=== PATIENT | female | born 1950 | race Caucasian/White ===

== ENCOUNTER → 2020-08-08 11:46 | Outpatient (BNVA) | payer MEDICARE, SELFPAY | PROVIDERS: PCP Internal Medicine; Referring Provider Internal Medicine; Visit Provider Nurse Practitioner | DX: K58.2 Mixed irritable bowel syndrome (principal); K21.9 Gastro-esophageal reflux disease without esophagitis; Z86.010 Personal history of colon polyps | CPT/HCPCS: 99203 ==

== ENCOUNTER 2020-08-14 07:58 | Outpatient (REF) | payer MEDICARE, SELFPAY ==
[2020-08-14 08:59] LABS: MANUAL DIFF FLAG NO
[2020-08-14 09:05] LABS: Basophils Percent Auto 0.6 % (0-2); Eosinophils Absolute Auto 0.1 X10*3/uL (0.0-0.4); Eosinophils Percent Auto 2.8 % (0-4); Hematocrit 38.6 % (37-47); Hemoglobin 12.9 g/dl (12.0-16.0); Imm Gran Abs Auto 0.02 X10*3/uL (0.00-0.03); Imm Gran Pct Auto 0.4 % (0.0-0.4); Lymphocytes Absolute Auto 1.1 X10*3/uL (1.2-4.9); Lymphocytes Percent Auto 23.2 % (20-40); Mean Corpuscular HGB Conc 33.4 g/dl (31.0-35.0); Mean Corpuscular Hemoglobin 28.2 pg (27.0-33.0); Mean Corpuscular Volume 84.3 fL (80-98); Monocytes Absolute Auto 0.3 X10*3/uL (0.1-1.2); Monocytes Percent Auto 7.2 % (2-11); Neutrophils Absolute Auto 3.1 X10*3/uL (2.0-8.3); Neutrophils Percent Auto 65.8 % (45-73); Platelet Count 301 X10*3/uL (160-400); Red Blood Count 4.58 X10*6/uL (4.20-5.50); Red Cell Distribution Width 14.1 % (11.0-16.0); White Blood Count 4.7 X10*3/uL (4.8-10.8)
[2020-08-14 09:27] LABS: Alanine Aminotransferase 12 U/L (0-31); Albumin Level 4.2 g/dL (3.5-5.0); Alkaline Phosphatase 103 U/L (39-117); Anion Gap 12 (12-20); Aspartate Amino Transferase 17 U/L (5-31); Bilirubin Total 0.6 mg/dL (0.0-1.0); Blood Urea Nitrogen 9 mg/dL (9-16); Carbon Dioxide 28 mmol/L (22-29); Chloride 99 mmol/L (96-108); Cholesterol 226 mg/dL; Estimated Glomerular Filt Rate > 60; Glucose Fasting 90 mg/dL (60-99); HDL Cholesterol 68 mg/dL; LDL Cholesterol Calculated 130 mg/dl; Potassium 4.1 mmol/l (3.3-5.1); Sodium 135 mmol/L (135-145); Total Protein 6.8 g/dL (6.5-8.0); Triglycerides 142 mg/dL
[2020-08-14 09:49] LABS: Vitamin D 25-OH Total 35.9 ng/mL (>30)
[2020-08-14 11:04] LABS: Glucose Urine UA NEG (NEG); Leukocyte Esterase Urine 1+ (NEG); Nitrite Urine NEG (NEG); Urine Blood NEG (NEG); Urine Ketones NEG (NEG); Urine Protein TRACE MG/DL (NEG-TRACE)
[2020-08-14 11:10] LABS: Appearance Urine HAZY; Color Urine YELLOW
[2020-08-14 11:21] LABS: Bacteria Urine 2+ /LPF; RBC Urine 0 /HPF (0); Squamous Epithelial Cell Urine 3+ /LPF
== END 2020-08-14 07:59 | disposition home or self-care (01) ==
LOC: HO.LAB 07:58
PROVIDERS: PCP Internal Medicine; Visit Provider Internal Medicine
DX: I10 Essential (primary) hypertension (principal); E78.2 Mixed hyperlipidemia; E55.9 Vitamin D deficiency, unspecified
CPT/HCPCS: 36415; 80053; 80061; 81001; 81003; 82306; 84153; 85025

== ENCOUNTER → 2021-02-05 10:52 | Outpatient (BNVA) | payer MEDICARE, SELFPAY | PROVIDERS: PCP Internal Medicine; Visit Provider Nurse Practitioner | CPT/HCPCS: Q3014 ==

== ENCOUNTER 2021-05-22 10:07 | Inpatient (IN) | payer MEDICARE, SELFPAY ==
--- NOTE | ~2021-05-22 | CT_ITS ---
EXAMINATION: CT HEAD WITHOUT CONTRAST CLINICAL INFORMATION: Dizziness abrupt onset, history vertigo COMPARISON: None TECHNIQUE: Contiguous axial imaging was performed from the skull base to vertex without intravenous administration of contrast. Additional 2-D coronal and sagittal reformatted images are generated on the CT workstation and uploaded to PACS. This CT examination was performed using dose optimization techniques as appropriate, variously including the following: *Automated exposure control *Adjustment of mA and/or kV according to patient size (this includes techniques or standardized protocols for targeted exams where dose is matched to indication/reason for exam; i.e. extremities or head) *Use of iterative reconstruction technique DLP: 583 mGy-cm FINDINGS: There is no intracranial hemorrhage, hematoma, or extra-axial fluid collection. The ventricles are normal in size. There is no hydrocephalus, edema, or mass effect. The valdes-white matter differentiation appears symmetric. There is no visible acute territorial infarct or mass lesion. The calvarium appears intact. There is no pneumocephalus or orbital emphysema. The visualized sinuses and middle ears and mastoid air cells show no significant mucosal thickening. There are no air-fluid levels. CT/CT head/brain wo IV con IMPRESSION: No acute intracranial abnormality.
--- NOTE | ~2021-05-22 | MR_ITS ---
EXAMINATION: MR BRAIN WITHOUT CONTRAST CLINICAL INFORMATION: Dizziness. Posterior stroke. COMPARISON: CT head from 05/22/2021. TECHNIQUE: MRI of the brain was obtained using routine sequences without contrast. FINDINGS: No focal restricted diffusion is demonstrated to suggest acute or subacute cerebral ischemia. No evidence of acute or chronic hemorrhagic products on heme-sensitive imaging. Scattered periventricular and deep white matter T2 FLAIR hyperintensities consistent with moderate underlying microangiopathy. The ventricles are normal in morphology and size. No abnormal mass effect. No midline shift. Normal appearance of the pituitary gland. No abnormalities of the posterior fossa with normal appearance of the brainstem and cerebellum. Normal arterial and venous vascular flow voids are present. Normal, homogeneous marrow signal. Mild mucosal thickening of the paranasal sinuses. No signal abnormalities within the mastoids. MR/MR head/brain wo con IMPRESSION: 1. No acute intracranial abnormalities. 2. Moderate underlying microangiopathy.
[2021-05-22 10:11] VITALS: RESP 16; BMI 27.4
--- NOTE | 2021-05-22 10:14 | ECG_ITS ---
Test Reason : DIZZINESS Blood Pressure : / mmHG Vent. Rate : 075 BPM Atrial Rate : 075 BPM P-R Int : 152 ms QRS Dur : 078 ms QT Int : 430 ms P-R-T Axes : 035 -07 021 degrees QTc Int : 480 ms Normal sinus rhythm Moderate voltage criteria for LVH, may be normal variant Borderline ECG No previous ECGs available Referred By: Galina Kiser Electronically Signed By:SHANTELLE GU MD
--- NOTE | 2021-05-22 10:17 | ED.DIZZY ---
HPI - Dizziness General Chief Complaint: General Medical Stated Complaint: dizziness,blurred vision, neg stroke scale Time Seen by Provider: 05/22/21 10:10 Source: patient and EMS Mode of arrival: EMS Limitations: no limitations History of Present Illness HPI Narrative: had earache and allergies last week MD elicited complaint: dizziness Onset (ago): minute(s) Timing: sudden onset Severity: severe Description: room spinning Context: change in body position History of similar symptoms: No Exacerbating factors: movement/ambulation, change in body position and keeping eyes open Relieving factors: nothing Associated symptoms: nausea and vomiting Related Data Home Medications Medication Instructions Recorded Confirmed fluticasone propionate 50 1 spray INTRANASAL DAILY PRN 08/08/20 05/22/21 mcg/actuation nasal spray,suspension lisinopril 20 1 tab PO BEDTIME 08/08/20 05/22/21 mg-hydrochlorothiazide 12.5 mg tablet omeprazole 20 mg capsule,delayed 20 mg PO BID 08/08/20 05/22/21 release paroxetine HCl 30 mg tablet 30 mg PO BEDTIME 08/08/20 05/22/21 chlordiazepoxide HCl 1 cap PO BEDTIME PRN 05/22/21 05/22/21 Previous Rx's Medication Instructions Recorded [id number] 1 cap PO QID 30 Days #120 cap 10/05/20 24,000-76,000-120,000 unit capsule,delayed rel Allergies Allergy/AdvReac Type Severity Reaction Status Date / Time codeine [CODEINE] Allergy Severe ANAPHYLAXIS Unverified 07/19/20 14:52 Sulfa (Sulfonamide Allergy Intermediate RASH Unverified 07/19/20 14:52 Antibiotics) [SULFA (SULFONAMIDE ANTIBIOTICS)] Antihistamine Allergy Unknown Unverified 02/07/20 00:00 Codeine Sulfate Allergy Unknown Unverified 02/14/15 00:00 Review of Systems Review of Systems: Constitutional : No Weight loss, No Fever, No Chills, No Fatigue, No Malaise ENT/Mouth : No sore throat, No Rhinorrhea Eyes: No Eye Pain, No Swelling, No Redness Cardiovascular : No Chest Pain, No SOB, No Dyspnea on Exertion, No Orthopnea, No Edema, No Palpitations Respiratory : No Cough, No Sputum, No Wheezing Gastrointestinal : pos Nausea, pos Vomiting, No Diarrhea, No Constipation, No abdominal Pain, No Hematochezia, No Melena Genitourinary : No Dysuria, No Urinary Frequency, No Hematuria, Musculoskeletal : No joint pain, No Myalgias, No Joint Swelling Skin : No Skin Lesions, No rash Neuro : No Weakness, No Numbness, pos Dizziness, No Headache Psych : No Anxiety/Panic, No Depression Heme/Lymph: No Bruising, No Bleeding,No Lymphadenopathy Endocrine : No Polyuria, No Polydipsia All other systems reviewed and are negative [facility] Past Medical History Attestation statement: The following information was validated with the patient. Medical History (Updated 05/22/21 @ 15:50 by Galina Kiser DO) Depression with anxiety GERD (gastroesophageal reflux disease) HTN (hypertension), benign Irritable bowel syndrome with both constipation and diarrhea Lupus Positive colorectal cancer screening using Cologuard test Rheumatoid arthritis Tubular adenoma of colon Vertigo Surgical History History of cholecystectomy Family History Family History Father CAD (coronary artery disease) Maternal Grandmother HTN (hypertension), benign Social History Social History Alcohol intake: never Years Smoked: quit greater than 10 years ago Advance Directives: No Advance Directives Information Provided: Yes Current occupation: retired Physical Exam Vital Signs: Vital Signs: Last Vital Signs Temp 97.7 F 05/22/21 14:56 Pulse 75 05/22/21 14:56 Resp 12 05/22/21 14:56 BP 171/88 H 05/22/21 14:56 Pulse Ox 94 05/22/21 14:56 Body Mass Index 27.4 Appearance: Alert. Oriented X3. Active vomiting mild acute distress. Eyes: Pupils equal, round and reactive to light. significant horizontal nystagmus on exam worse to the left ENT: Pharynx normal. no AOM in bilateral ears Neck: Normal inspection. Neck supple. CVS: Normal heart rate and rhythm. Pulses normal. Respiratory: No respiratory distress. Breath sounds normal. Abdomen: Soft and nontender. Skin: Skin warm and dry. Normal skin color. Normal skin turgor. Extremities: No lower extremity edema. No calf ttp Neuro: Oriented X 3. No motor deficit. No sensory deficit. Course Course Course Narrative: no response to nila maneuvers MRI ordered for possible posterior stroke given the severity of her symptoms and peristence of nystagmus no stroke seen on MRI - Neurology has seen images pateint still very dizzy will admit MDM - Dizziness MDM Narrative Medical decision making narrative: 70 yo female with recent URI symptoms and earache abrupt onset n/v dizziness with nystagmus - no other neuro deficits suspect vertigo at this time, labs, CT head, IVF, IV zofran and ativan - dispo per results and findings, presentation given lack of neuro symptoms seems more peripheral than [employer] lesion like posterior stroke. Lab Data Result diagrams: 05/22/21 10:23 05/22/21 10:23 Labs: Lab Results 05/22/21 05/22/21 05/22/21 Range/Units 10:23 10:23 14:50 WBC 4.4 L (4.8-10.8) X10*3/uL RBC 4.43 (4.20-5.50) X10*6/uL Hgb 12.6 (12.0-16.0) g/dl Hct 37.7 (37-47) % MCV 85.1 (80-98) fL MCH 28.4 (27.0-33.0) pg MCHC 33.4 (31.0-35.0) g/dl RDW 13.7 (11.0-16.0) % Plt Count 303 (160-400) X10*3/uL MPV 9.2 L (9.4-12.3) fL Immature Gran % (Auto) 0.7 H (0.0-0.4) % Neut % (Auto) 55.1 (45-73) % Lymph % (Auto) 30.0 (20-40) % [place] % (Auto) 9.6 (2-11) % Eos % (Auto) 3.7 (0-4) % Baso % (Auto) 0.9 (0-2) % Lymph # (Auto) 1.3 (1.2-4.9) X10*3/uL [place] # (Auto) 0.4 (0.1-1.2) X10*3/uL Eos # (Auto) 0.2 (0.0-0.4) X10*3/uL Baso # (Auto) 0.0 (0.0-0.2) X10*3/uL Abs Immat Gran (auto) 0.03 (0.00-0.03) X10*3/uL Absolute Neuts (auto) 2.4 (2.0-8.3) X10*3/uL Absolute Nucleated RBC 0.000 (0.0-0.012) X10*3/uL Nucleated RBC % (auto) 0.0 (0.0-0.2) /100WBC Sodium 141 (135-145) mmol/L Potassium 3.0 L (3.3-5.1) mmol/L Chloride 101 (96-108) mmol/L Carbon Dioxide 30 H (22-29) mmol/L Anion Gap 13 (12-20) BUN 8 L (9-16) mg/dL Creatinine 0.74 (0.5-1.4) mg/dL Estim Creat Clear Calc 63.0 Estimated GFR > 60 Random Glucose 105 (60-115) mg/dL Calcium 8.3 L D (8.4-10.2) mg/dL Magnesium 1.1 L* (1.6-2.6) mg/dL Total Bilirubin 0.4 (0.0-1.0) mg/dL Direct Bilirubin 0.2 (0.0-0.5) mg/dL AST 27 D (5-31) U/L ALT 19 (0-31) U/L Alkaline Phosphatase 91 (39-117) U/L Total Protein 7.0 (6.5-8.0) g/dL Albumin 4.3 (3.5-5.0) g/dL COVID-19 (LAURO) Negative (Negative) COVID-19 Clin Com See Note ECG Data Attestation: I personally reviewed and interpreted this ECG as follows: ECG interpretation date: 05/22/21 ECG interpretation time: 11:33 Interpretation: Rate: 75 Rhythm: NSR Gray: left LVH Normal P waves. Normal ALLEN. Normal QRS complex. ST T wave : nonspecific qTC: normal prior studies: no acute ischemia The study has been interpreted contemporaneously by me. . Discharge Plan Discharge Clinical Impression: Vertigo, Hypomagnesemia, Acute hypokalemia Patient Disposition: Admitted As Inpatient
[2021-05-22 10:28] LABS: MANUAL DIFF FLAG NO
[2021-05-22] MEDS: LORazepam 2 MG/ML VIAL 1 MG IVPUSH ×2 (10:29→12:53)
[2021-05-22] MEDS: ondansetron HCL 4 MG/2 ML VIAL IVPUSH (10:29)
[2021-05-22] MEDS: 0.9 % Sodium Chloride 1,000 ML 999 ML IVCONT (10:30)
[2021-05-22 10:33] LABS: Basophils Percent Auto 0.9 % (0-2); Eosinophils Absolute Auto 0.2 X10*3/uL (0.0-0.4); Eosinophils Percent Auto 3.7 % (0-4); Hematocrit 37.7 % (37-47); Hemoglobin 12.6 g/dl (12.0-16.0); Imm Gran Abs Auto 0.03 X10*3/uL (0.00-0.03); Imm Gran Pct Auto 0.7 % (0.0-0.4); Lymphocytes Absolute Auto 1.3 X10*3/uL (1.2-4.9); Mean Corpuscular HGB Conc 33.4 g/dl (31.0-35.0); Mean Corpuscular Hemoglobin 28.4 pg (27.0-33.0); Mean Corpuscular Volume 85.1 fL (80-98); Mean Platelet Volume 9.2 fL (9.4-12.3); Monocytes Absolute Auto 0.4 X10*3/uL (0.1-1.2); Monocytes Percent Auto 9.6 % (2-11); Neutrophils Absolute Auto 2.4 X10*3/uL (2.0-8.3); Neutrophils Percent Auto 55.1 % (45-73); Platelet Count 303 X10*3/uL (160-400); Red Blood Count 4.43 X10*6/uL (4.20-5.50); Red Cell Distribution Width 13.7 % (11.0-16.0); White Blood Count 4.4 X10*3/uL (4.8-10.8)
[2021-05-22 11:08] LABS: Alanine Aminotransferase 19 U/L (0-31); Albumin Level 4.3 g/dL (3.5-5.0); Alkaline Phosphatase 91 U/L (39-117); Anion Gap 13 (12-20); Aspartate Amino Transferase 27 U/L (5-31); Bilirubin Direct 0.2 mg/dL (0.0-0.5); Bilirubin Total 0.4 mg/dL (0.0-1.0); Blood Urea Nitrogen 8 mg/dL (9-16); Calcium 8.3 mg/dL (8.4-10.2); Carbon Dioxide 30 mmol/L (22-29); Chloride 101 mmol/L (96-108); Estimated Glomerular Filt Rate > 60; Glucose Random 105 mg/dL (60-115); Sodium 141 mmol/L (135-145)
[2021-05-22] MEDS: Meclizine HCl 25 MG TABLET PO (11:11)
[2021-05-22 12:18] LABS: Magnesium 1.1 mg/dL (1.6-2.6)
[2021-05-22] MEDS: Potassium Chloride/H20 10 MEQ/100 ML PIGGYBACK 100 MEQ IV ×4 (12:23→17:36)
[2021-05-22] MEDS: Magnesium Sulfate/H2O 2 GM/50 ML PIGGYBACK IV (12:53)
[2021-05-22 14:56] VITALS: BP 171/88; PULSE 75; RESP 12; TEMP 36.5; O2SAT 94
--- NOTE | 2021-05-22 15:01 | PHA.MEDREC ---
Pharmacy Consult ? Medication Reconciliation Pharmacy has completed the medication reconciliation. Note the patient reports to only taking creon when they are not feeling well; last dose was one week ago
--- NOTE | 2021-05-22 15:14 | P.HPHOSP_ITS ---
History of Present Illness Date of Service: 05/22/21 Chief Complaint: Vertigo 70 year female with lupus, HTN, Rheumatoid arthritis who presents with acute on set of vertigo. She relates that she was driving when she first started having the symptoms vertigo, blurry vision and nausea and also has been seeing double, about a week earlier she had earche and upper respiratory symptoms. NIH stroke scle is low, CT of head is negative. Her sympoms are better yet persists and seem worse with head movement. Additionally, she has magneseium of 1.1 and potassium of 3.0 and both been corrected intravenously. Vertigo is treated with hydration, Ativan and Meclizine Review of Systems Review of Systems: Gen: no fever Resp: no sob, no cough CV: no chest, no MONT[place]OR, no leg edema GI: No n/v, no abd pain Neuro: No confusion, +vertigo, no weakness, [facility] Medical History (Updated 05/22/21 @ 15:23 by Rui Meyers MD) Depression with anxiety GERD (gastroesophageal reflux disease) HTN (hypertension), benign Irritable bowel syndrome with both constipation and diarrhea Lupus Positive colorectal cancer screening using Cologuard test Rheumatoid arthritis Tubular adenoma of colon Vertigo Functional capacity: independent ambulation Family History Father CAD (coronary artery disease) Maternal Grandmother HTN (hypertension), benign Surgical History History of cholecystectomy Social History Alcohol intake: never Years Smoked: quit greater than 10 years ago Advance Directives: No Advance Directives Information Provided: Yes Current occupation: retired Meds Allergies Allergy/AdvReac Type Severity Reaction Status Date / Time codeine [CODEINE] Allergy Severe ANAPHYLAXIS Unverified 07/19/20 14:52 Sulfa (Sulfonamide Allergy Intermediate RASH Unverified 07/19/20 14:52 Antibiotics) [SULFA (SULFONAMIDE ANTIBIOTICS)] Antihistamine Allergy Unknown Unverified 02/07/20 00:00 Codeine Sulfate Allergy Unknown Unverified 02/14/15 00:00 Active Medications: Current Medications Generic Name Dose Route Start Last Admin Trade Name Freq PRN Reason Stop Dose Admin Pharmacy Consult 1 each 05/22/21 14:38 Consult Rx Perform Med Rec MISCELLANE ONCE PRN Consult order Home Medications Medication Instructions Recorded Confirmed Last Taken Type fluticasone propionate 50 1 spray INTRANASAL DAILY PRN 08/08/20 05/22/21 05/21/21 History mcg/actuation nasal spray,suspension lisinopril 20 1 tab PO BEDTIME 08/08/20 05/22/21 05/21/21 History mg-hydrochlorothiazide 12.5 mg tablet omeprazole 20 mg capsule,delayed 20 mg PO BID 08/08/20 05/22/21 05/21/21 History release paroxetine HCl 30 mg tablet 30 mg PO BEDTIME 08/08/20 05/22/21 05/21/21 History chlordiazepoxide HCl 1 cap PO BEDTIME PRN 05/22/21 05/22/21 Unknown History Physical Exam Vital Signs and Narrative: Vital Signs: Last Vital Signs Temp 97.7 F 05/22/21 14:56 Pulse 75 05/22/21 14:56 Resp 12 05/22/21 14:56 BP 171/88 H 05/22/21 14:56 Pulse Ox 94 05/22/21 14:56 Body Mass Index 27.4 Const: Other: Constitutional Awake and Alert, No apparent distress Neck Supple, No lymphadenopathy Cardiovascular RRR, No M/R/G, S1 S2, No S3 S4, No pedal edema Respiratory Lungs clear, No respiratory distress Gastrointestinal Non tender, Non-distended Skin No rash Neurological Alert & oriented x3, cranial nerve 2 to 12 intact, strenght 5/5, gait not tested d/t dizziness Psychological Appropriate affect Results Labs CBC and Chem 7: 05/22/21 10:23 05/22/21 10:23 Labs: Laboratory Results - last 24 hr 05/22/21 05/22/21 10:23 10:23 MCV 85.1 MCH 28.4 MCHC 33.4 RDW 13.7 Plt Count 303 MPV 9.2 L Immature Gran % (Auto) 0.7 H Neut % (Auto) 55.1 Lymph % (Auto) 30.0 [place] % (Auto) 9.6 Eos % (Auto) 3.7 Baso % (Auto) 0.9 Lymph # (Auto) 1.3 [place] # (Auto) 0.4 Eos # (Auto) 0.2 Baso # (Auto) 0.0 Abs Immat Gran (auto) 0.03 Absolute Neuts (auto) 2.4 Absolute Nucleated RBC 0.000 Nucleated RBC % (auto) 0.0 Anion Gap 13 Estim Creat Clear Calc 63.0 Estimated GFR > 60 Random Glucose 105 Calcium 8.3 L D Magnesium 1.1 L* Total Bilirubin 0.4 Direct Bilirubin 0.2 AST 27 D ALT 19 Alkaline Phosphatase 91 Total Protein 7.0 Albumin 4.3 Imaging Radiologist's Impressions: Impressions Head CT 05/22/21 10:14 IMPRESSION: No acute intracranial abnormality. Brain MRI 05/22/21 11:11 IMPRESSION: 1. No acute intracranial abnormalities. 2. Moderate underlying microangiopathy. Assessment and Plan (1) Vertigo: Status: Acute (2) HTN (hypertension), benign: Status: Acute (3) Rheumatoid arthritis: Status: Acute 70/feme with history lupus, RA, HTN, here with acute vertigo 1/vertigo--suspect labyrinthitis -supportive care -IVF -PRN Meclzine -MRI to rule posterior fosa stroke -Neuro eval if not getting better 2/HTN--reconcile home med, Lisinopril and HCTZ 3/ Lupus--not active 4/Depression--Paroxetine Xarelto for DVT prophylaxis Full code Quality Stroke Does the patient have a stroke diagnosis?: No VTE Prior VTE?: No VTE Risk Level:: Medical - moderate - high VTE Device Contraindication: N/A - Device Ordered VTE Drug Contraindication: N/A - Med Ordered
[2021-05-22 15:18] LABS: COVID-19 Test Negative (Negative)
[2021-05-22] MEDS: Dextrose 5 % and 0.45 % NaCl 1,000 ML 100 ML IVCONT (15:54)
[2021-05-22] MEDS: 0.9 % Sodium Chloride Flush 3 ML SYRINGE IVFLUSH (15:55)
[2021-05-22 16:18] VITALS: BP 157/57; PULSE 93; RESP 18; TEMP 36.9; O2SAT 92
[2021-05-22 16:35] LABS: Glucose Urine UA NEG (NEG); Leukocyte Esterase Urine NEG (NEG); Nitrite Urine NEG (NEG); PH 7.5 (5.0-8.0); Urine Blood NEG (NEG); Urine Ketones NEG (NEG); Urine Protein NEG (NEG-TRACE)
[2021-05-22 16:38] LABS: Appearance Urine CLEAR; Color Urine YELLOW
[2021-05-22] MEDS: Acetaminophen 325 MG TABLET 650 MG PO (17:36)
[2021-05-22 18:06] VITALS: BP 160/70; PULSE 65; RESP 13; TEMP 37.1; O2SAT 95
[2021-05-23] VITALS (11 sets, daily range): BP systolic 150–200; BP diastolic 73–97; PULSE 62–85; RESP 18–20; TEMP 36.1–37; O2SAT 92–97; BMI 27.8
[2021-05-23] MEDS: Acetaminophen 325 MG TABLET 650 MG PO ×3 (00:18→13:10)
[2021-05-23] MEDS: Dextrose 5 % and 0.45 % NaCl 1,000 ML 100 ML IVCONT ×2 (05:10→14:13)
[2021-05-23] MEDS: 0.9 % Sodium Chloride Flush 3 ML SYRINGE IVFLUSH ×2 (07:39→16:53)
[2021-05-23] MEDS: Rivaroxaban 10 MG TABLET PO (07:41)
[2021-05-23 08:21] LABS: Anion Gap 12 (12-20); Blood Urea Nitrogen 5 mg/dL (9-16); Calcium 7.6 mg/dL (8.4-10.2); Carbon Dioxide 26 mmol/L (22-29); Chloride 105 mmol/L (96-108); Creatinine Clr Calc Pharmacy 67.2; Estimated Glomerular Filt Rate > 60; Glucose Random 101 mg/dL (60-115); Potassium 3.1 mmol/L (3.3-5.1); Sodium 140 mmol/L (135-145)
--- NOTE | 2021-05-23 09:19 | MHC.CM.PN ---
CM MET WITH PT WHO REPORTS SHE LIVES ALONE WITH HER TWO DOGS AND IS INDEPENDENT AT BASELINE. PT HAS NO DME, NO SERVICES AND DRIVES. PT DOES NOT HAVE A HCP AND DECLINED TO COMPLETE ONE TODAY HOWEVER SHE DID ACCEPT INFORMATION AND A BLANK DOCUMENT TO CONSIDER AT A LATER TIME. PT CONFIRMS HER PCP IS DARCI ROBB. OBS NOTICE DELIVERED CURRENT DC PLAN IS HOME WITH NO SERVICES PT WILL SELF ARRANGE TRANSPORTATION
[2021-05-23] MEDS: amLODIPine Besylate 5 MG TABLET PO (09:40)
[2021-05-23] MEDS: Omeprazole 20 MG CAPSULE.DR PO ×2 (09:44→22:06)
[2021-05-23] MEDS: Lipase/Prot/Amylase 24/76/120K 1 CAP CAPSULE.DR PO ×4 (10:39→22:06)
--- NOTE | 2021-05-23 11:53 | P.PNIM_ITS ---
Subjective Subjective Date of Service: 05/23/21 Interval History: Seen in f/u for vertigo, double vision. 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 nystagmus Resp: CTA bilateral CVS: S1,S2,RRR GI: +BS, NT, no distention Skin: No rash Neuro: motor grossly intact Psych: appropriate affect Objective Data Current Medications Generic Name Dose Route Start Last Admin Trade Name Georiga PRN Reason Stop Dose Admin Acetaminophen 650 mg 05/22/21 15:37 05/23/21 06:22 Acetaminophen 325 Mg Tablet PO 650 mg Q6H PRN Administration Pain, Mild (Pain Scale 1-3) Amlodipine Besylate 5 mg 05/23/21 09:00 05/23/21 09:40 Amlodipine Besylate 5 Mg Tablet PO 5 mg DAILY RAMONA Administration Protocol Lipase/Protease/Amylase 1 cap 05/23/21 09:00 05/23/21 10:39 Lipase/Prot/Amylase 24/76/120k 1 Cap Capsule.Dr PO 1 cap QID RAMONA Administration Chlordiazepoxide HCl 10 mg 05/23/21 09:08 Chlordiazepoxide Hcl 5 Mg Capsule PO BEDTIME PRN Anxiety Fluticasone Propionate 1 spray 05/23/21 08:51 Fluticasone Propionate Nasal 16 Gm [place] NOSTRIL-B DAILY PRN Allergic Symptoms Hydrochlorothiazide 12.5 mg 05/23/21 21:00 Hydrochlorothiazide 12.5 Mg Tablet PO BEDTIME RAMONA Dextrose/Sodium Chloride 1,000 mls @ 100 mls/hr 05/22/21 16:00 05/23/21 05:10 D51/2ns IVCONT 100 mls/hr .Q10H RAMONA Administration Lisinopril 20 mg 05/23/21 21:00 Lisinopril 20 Mg Tablet PO BEDTIME RAMONA Melatonin 6 mg 05/22/21 15:41 Melatonin 3 Mg Tablet PO BEDTIME PRN Insomnia Omeprazole 20 mg 05/23/21 09:00 05/23/21 09:44 Omeprazole 20 Mg Capsule. PO 20 mg BID RAMONA Administration Paroxetine HCl 30 mg 05/23/21 21:00 Paroxetine Hcl 30 Mg Tablet PO BEDTIME [facility] Pharmacy Consult 1 each 05/22/21 14:38 Consult Rx Perform Med Rec MISCELLANE ONCE PRN Consult order Rivaroxaban 10 mg 05/23/21 09:00 05/23/21 07:41 Rivaroxaban 10 Mg Tablet PO [address] [facility] Administration Sodium Chloride 3 ml 05/22/21 16:00 05/23/21 07:39 0.9 % Sodium Chloride Flush 3 Ml Syringe IVFLUSH [address] [facility] Administration Labs CBC & Chem 7: 05/22/21 10:23 05/23/21 05:27 Labs: Laboratory Results - last 24 hr 05/22/21 05/22/21 05/22/21 10:23 14:50 16:26 Sodium Potassium Chloride Carbon Dioxide Anion Gap BUN Creatinine Estim Creat Clear Calc Estimated GFR Random Glucose Calcium Magnesium 1.1 L* Urine Color YELLOW Urine Appearance CLEAR Urine pH 7.5 Ur Specific [place] 1.010 Urine Protein NEG Urine Glucose (UA) NEG Urine Ketones NEG Urine Blood NEG Urine Nitrite NEG Ur Leukocyte Esterase NEG COVID-19 (LAURO) Negative COVID-19 Clin Com See Note 05/23/21 05:27 Sodium 140 Potassium 3.1 L Chloride 105 Carbon Dioxide 26 Anion Gap 12 BUN 5 L Creatinine 0.70 Estim Creat Clear Calc 67.2 Estimated GFR > 60 Random Glucose 101 Calcium 7.6 L D Magnesium Urine Color Urine Appearance Urine pH Ur Specific [place] Urine Protein Urine Glucose (UA) Urine Ketones Urine Blood Urine Nitrite Ur Leukocyte Esterase COVID-19 (LUARO) COVID-19 Clin Com Quality Stroke Does the patient have a stroke diagnosis?: No VTE Prior VTE?: No VTE Risk Level:: Medical - moderate - high VTE Device Contraindication: N/A - Device Ordered VTE Drug Contraindication: N/A - Med Ordered Assessment and Plan (1) Vertigo: Status: Acute (2) HTN (hypertension), benign: Status: Acute (3) Rheumatoid arthritis: Status: Acute Assessment and Plan: 70/feme with history lupus, RA, HTN, here with acute vertigo 1/vertigo/Dyplopia--MRI was negative -supportive care -IVF -PRN Meclzine -MRI to rule posterior fosa stroke -Neuro consult PT/OT -eye patch 2/HTN--Uncotrolled, continue HCTZ, Lisinopril. Add Norvasc 3/ Lupus--not active 4/Depression--Paroxetine Xarelto for DVT prophylaxis Full code
[2021-05-23] MEDS: Fluticasone Propionate Nasal 16 GM SPRAY 1 SPRAY NOSTRIL-B (15:36)
[2021-05-23] MEDS: Potassium Chloride ER 20 MEQ TAB.ER.PRT PO (15:43)
[2021-05-23] MEDS: Aspirin Enteric Coated 81 MG TABLET.DR PO (17:08)
--- NOTE | 2021-05-23 18:04 | PM.NEUROCN ---
History of Present Illness Data of Consult Service Date: 05/23/21 Primary Care Provider: Arnulfo Villalba MD HPI Reason for consult: Binocular diplopia following an episode of intense vertigo This is a 70-year-old woman with a history of hypertension, rheumatoid arthritis, lupus, depression and anxiety who had an acute onset of vertigo with severe spinning and was brought to the hospital. She was treated symptomatically and her vertigo improved and then she noted that she had binocular diplopia. If she closes either eye. The diplopia clears but with both eyes open she sees double. She is also having trouble walking straight. There is no previous history of stroke. She is complaining of a fairly significant posterior occipital headache. She was also found to have acute hypokalemia and hypomagnesemia which has been corrected. Review of Systems Eyes: Eyes: Reports no additional eye complaints ENT: Reports system reviewed and no additional complaints, except as documented and Reports Normal hearing present Cardiovascular: Cardiovascular: Reports no additional cardiovascular complaints Respiratory: Respiratory: Reports no additional respiratory complaints Gastrointestinal: Gastrointestinal: Reports no additional gastrointestinal complaints Musculoskeletal: Musculoskeletal: Reports no additional musculoskeletal complaints Integumentary/Breasts: Skin/Breast: Reports system reviewed and no additional complaints, except as docu Neurologic: Reports as per HPI and Reports Normal hearing present Psychiatric: Psychiatric: Reports as per HPI Endocrine: Endocrine: Reports no additional endocrine complaints Hematologic/Lymphatic: Hematologic/Lymphatic: Reports no additional hematologic/lymphatic complaints Allergic/Immunologic: Allergic/Immunologic: Reports no additional allergic/immunologic complaints PMFSH Past Medical History Medical History (Updated 05/23/21 @ 18:08 by Jarrell Salvador MD) Depression with anxiety GERD (gastroesophageal reflux disease) HTN (hypertension), benign Irritable bowel syndrome with both constipation and diarrhea Lupus Positive colorectal cancer screening using Cologuard test Rheumatoid arthritis Tubular adenoma of colon Vertigo Functional capacity: independent ambulation Family History Family History Father CAD (coronary artery disease) Maternal Grandmother HTN (hypertension), benign Surgical History Surgical History History of cholecystectomy Social History Social History Alcohol intake: never Patient Tobacco Use Status: Former Tobacco user Years Smoked: quit greater than 10 years ago Currently Displaying Signs/Symptoms of Drug Intoxication Withdrawal: No Advance Directives: No Advance Directives Information Provided: Yes Do you have thoughts of harming others: None Do you have a plan to hurt others: No Plan service: No Current occupational status: retired Current occupation: retired Meds Allergies Allergy/AdvReac Type Severity Reaction Status Date / Time codeine [CODEINE] Allergy Severe ANAPHYLAXIS Verified 05/23/21 00:44 Sulfa (Sulfonamide Allergy Intermediate RASH Verified 05/23/21 00:44 Antibiotics) [SULFA (SULFONAMIDE ANTIBIOTICS)] Antihistamine Allergy Unknown Shakiness Verified 05/23/21 00:44 Codeine Sulfate Allergy Unknown Anaphylaxis Verified 05/23/21 00:44 Active Medications: Current Medications Generic Name Dose Route Start Last Admin Trade Name Freq PRN Reason Stop Dose Admin Acetaminophen 650 mg 05/22/21 15:37 05/23/21 13:10 Acetaminophen 325 Mg Tablet PO 650 mg Q6H PRN Administration Pain, Mild (Pain Scale 1-3) Amlodipine Besylate 5 mg 05/23/21 09:00 05/23/21 09:40 Amlodipine Besylate 5 Mg Tablet PO 5 mg DAILY RAMONA Administration Protocol Lipase/Protease/Amylase 1 cap 05/23/21 09:00 05/23/21 16:50 Lipase/Prot/Amylase 24/76/120k 1 Cap Capsule. PO 1 cap QID RAMONA Administration Aspirin 81 mg 05/23/21 14:30 05/23/21 17:08 Aspirin Enteric Coated 81 Mg Tablet. PO 81 mg DAILY RAMONA Administration Chlordiazepoxide HCl 10 mg 05/23/21 09:08 Chlordiazepoxide Hcl 5 Mg Capsule PO BEDTIME PRN Anxiety Fluticasone Propionate 1 spray 05/23/21 08:51 05/23/21 15:36 Fluticasone Propionate Nasal 16 Gm [place] NOSTRIL-B 1 spray DAILY PRN Administration Allergic Symptoms Hydrochlorothiazide 12.5 mg 05/23/21 21:00 Hydrochlorothiazide 12.5 Mg Tablet PO BEDTIME RAMONA Dextrose/Sodium Chloride 1,000 mls @ 100 mls/hr 05/22/21 16:00 05/23/21 14:13 D51/2ns IVCONT 100 mls/hr .Q10H RAMONA Administration Lisinopril 20 mg 05/23/21 21:00 Lisinopril 20 Mg Tablet PO BEDTIME RAMONA Melatonin 6 mg 05/22/21 15:41 Melatonin 3 Mg Tablet PO BEDTIME PRN Insomnia Omeprazole 20 mg 05/23/21 09:00 05/23/21 09:44 Omeprazole 20 Mg Capsule. PO 20 mg BID RAMONA Administration Paroxetine HCl 30 mg 05/23/21 21:00 Paroxetine Hcl 30 Mg Tablet PO BEDTIME [facility] Pharmacy Consult 1 each 05/22/21 14:38 Consult Rx Perform Med Rec MISCELLANE ONCE PRN Consult order Rivaroxaban 10 mg 05/23/21 09:00 05/23/21 07:41 Rivaroxaban 10 Mg Tablet PO 10 mg DAILY [facility] Administration Sodium Chloride 3 ml 05/22/21 16:00 05/23/21 16:53 0.9 % Sodium Chloride Flush 3 Ml Syringe IVFLUSH 3 ml QSHIFT [facility] Administration Home Medications Medication Instructions Recorded Confirmed Last Taken Type fluticasone propionate 50 1 spray INTRANASAL DAILY PRN 08/08/20 05/22/21 05/21/21 History mcg/actuation nasal spray,suspension lisinopril 20 1 tab PO BEDTIME 08/08/20 05/22/21 05/21/21 History mg-hydrochlorothiazide 12.5 mg tablet omeprazole 20 mg capsule,delayed 20 mg PO BID 08/08/20 05/22/21 05/21/21 History release paroxetine HCl 30 mg tablet 30 mg PO BEDTIME 08/08/20 05/22/21 05/21/21 History chlordiazepoxide HCl 1 cap PO BEDTIME PRN 05/22/21 05/22/21 Unknown History Physical Exam Vital Signs: Vital Signs: Last Vital Signs Temp 97.9 F 05/23/21 15:20 Pulse 83 05/23/21 15:20 Resp 19 05/23/21 15:20 BP 179/80 H 05/23/21 15:20 Pulse Ox 92 05/23/21 15:20 Body Mass Index 27.8 Const: General: cooperative, comfortable, no acute distress, well developed, alert and awake Nutritional Appearance: well nourished Orientation/consciousness: oriented to person, oriented to place and oriented to time Limitations: no limitations HENMT: Head: Yes normal to inspection, Yes normocephalic and Yes atraumatic Ears: hearing grossly normal bilaterally General nose exam: Normal external nose present Face and sinus: Yes normal facial exam Mouth: Normal oral and palatal mucosa present Eyes: General: appearance normal, both eyes and all related structures Visual Saldivar: normal visual saldivar by confrontation Alignment and Position: alignment normal Periorbital: periorbital findings normal Eyelids: Yes eyelids normal Conjunctivae: conjunctivae normal Sclerae: sclerae normal Corneas: corneas normal Pupils: Equal, round and reactive pupils present and Pupil accommodation reflex normal EOM: EOMs intact bilaterally Direct Ophthalmoscopy: normal light reflex Neck: Neck: Yes normal visual inspection, Yes full ROM and Yes no meningeal signs Thyroid: Thyroid normal Carotids: normal carotid upstroke and bounding pulses Chest: Chest palpation & inspection: normal inspection of the chest Resp: Effort & Inspection: normal respiratory effort Auscultation: clear to auscultation bilaterally Cardio: Rate: regular rate Rhythm: regular rhythm Heart sounds: S1 normal heart sound present and S2 normal heart sound present Peripheral pulses: Peripheral pulses 2+ throughout GI: Inspection: Yes normal to inspection Percussion: Yes normal to percussion Auscultation: normal bowel sounds Rectal Exam - Female: deferred Back/Spine/Pelvis: Cervical Spine: normal cervical lordosis and cervical ROM normal Thoracic/Lumbar Spine: thoracic and lumbar spine normal to inspection Skin: General skin exam: no rashes or lesions noted Neuro: Other: She has binocular diplopia with slightly disconjugate gaze and a partial medial up longitudinal fasciculus dysfunction. She also has truncal ataxia and is unable to walk tandem General: oriented to person, oriented to place, oriented to time, gait normal, tone normal, moves all extremities, Normal light touch and pain sensation, no meningeal signs, no focal motor deficits, CN's II-XI intact bilaterally, normal sensation to monofilament and deep tendon reflexes 2+ bilaterally Cranial nerves: Yes CN's II-XII intact bilaterally (Other than the eye findings), Yes Equal, round and reactive pupils present, Yes Bilaterally intact EOM present (Except for extraocular movement abnormality with diplopia), Yes Nystagmus not present, Yes Normal facial strength present, Yes Midline tongue present, Yes Normal gag reflex present, Yes Symmetric palate elevation present, Yes Normal hearing present and Yes Ability to bilaterally rotate head present Cognition (Neuro): normal cognition Speech: Other speech findings present (Neuro) Gait exam (Neuro): Wide-based gait present Motor exam (neuro): 5/5 motor strength present throughout, Pronator motor function not present, no tremor noted, no asterixis, Motor fasciculations not present, Normal motor muscle tone present throughout and Motor abnormalities not present Sensory Exam: Bilaterally intact graphesthesia Deep tendon reflexes (DTR's): Right triceps reflex intensity grade: 2+, Left triceps reflex intensity grade: 2+, Rt Biceps (C5, C6): 2+, Left biceps reflex intensity grade: 2+, Right brachioradialis reflex intensity grade: 2+, Left brachioradialis reflex intensity grade: 2+, Right patellar reflex intensity grade: 2+, Left patellar reflex intensity grade: 2+, Right ankle reflex intensity grade: 2+ and Left ankle reflex intensity grade: 2+ Plantar Reflex Responses: downgoing: right, left and bilateral Coordination: [id number] test normal, [id number] test normal and Romberg test negative Pupils: Normal pupillary reactivity/response: bilateral Extrem: General: Yes normal to inspection, Yes normal exam except as noted and Yes no pedal edema Psych: Appearance: grossly normal Mental Status: mental status grossly normal Speech and movement: Normal speech and movement present and Clear speech present Affect: normal affect Attitude: cooperative Thought process: Normal thought process present Results Labs CBC & Chem 7: 05/22/21 10:23 05/23/21 05:27 Labs: BMP 05/23/21 05:27 Sodium 140 Potassium 3.1 L Chloride 105 Carbon Dioxide 26 BUN 5 L Creatinine 0.70 Calcium 7.6 L D Assessment and Plan (1) Diplopia: Status: Acute She has extraocular movement abnormalities with binocular diplopia, vertigo and ataxia consistent with 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 Prognosis is good. She needs control of blood pressure and aspirin. Echocardiogram is also recommended. She will need short-term rehabilitation (2) Vertigo: Status: Acute Related to brainstem stroke. 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
[2021-05-23] MEDS: PARoxetine HCL 30 MG TABLET PO (22:06)
[2021-05-23] MEDS: lisinopriL 20 MG TABLET PO (22:06)
[2021-05-23] MEDS: hydroCHLOROthiazide 12.5 MG TABLET PO (22:07)
[2021-05-24] VITALS (11 sets, daily range): BP systolic 160–202; BP diastolic 70–104; PULSE 69–77; RESP 15–20; TEMP 36.6–37.1; O2SAT 94–96
[2021-05-24] MEDS: Dextrose 5 % and 0.45 % NaCl 1,000 ML 100 ML IVCONT (00:14)
[2021-05-24 07:04] LABS: Cholesterol 199 mg/dL; HDL Cholesterol 65 mg/dL; LDL Cholesterol Calculated 111 mg/dl; Triglycerides 115 mg/dL
[2021-05-24] MEDS: Lipase/Prot/Amylase 24/76/120K 1 CAP CAPSULE.DR PO ×4 (07:45→20:26)
[2021-05-24] MEDS: Omeprazole 20 MG CAPSULE.DR PO ×2 (07:45→20:27)
[2021-05-24] MEDS: Aspirin Enteric Coated 81 MG TABLET.DR PO (07:45)
[2021-05-24] MEDS: Rivaroxaban 10 MG TABLET PO (07:45)
[2021-05-24] MEDS: amLODIPine Besylate 5 MG TABLET PO (07:45)
[2021-05-24] MEDS: Acetaminophen 325 MG TABLET 650 MG PO (07:47)
[2021-05-24] MEDS: Labetalol HCL 100 MG/20 ML VIAL 10 MG IVPUSH ×2 (08:02→16:48)
--- NOTE | 2021-05-24 09:14 | MHC.CM.PN ---
Addendum entered by Sherly Piper 05/24/21 13:18: CURRENTLY, [facility] IS OFFERING A BED, [facility] IS INTERESTED AND [facility] HAS SAID NO HOWEVER THEY ARE REVIEWING AGAIN FOLLOWING CLARIFICATION OF BRAIN STEM STROKE. ONCE ALL BED OFFERS ARE KNOWN, CM WILL DISCUSS CHOICES WITH PT. Original Note: PT IS RECOMMENDING ACUTE REHAB, SHE IS AGREEABLE TO REFERRALS BEING MADE. REFERRALS SENT, AWAITING RESPONSE.
[2021-05-24] MEDS: Meclizine HCl 12.5 MG TABLET PO (11:18)
--- NOTE | 2021-05-24 11:37 | P.PNIM_ITS ---
Subjective Subjective Date of Service: 05/24/21 Interval History: Seen in f/u for vertigo, double vision and brain stem stroke. Vertigo is better, BP remain very high, and persistent dyplopia, some headach Physical Exam Vital Signs: Vital Signs: Last Vital Signs Temp 98.7 F 05/24/21 11:15 Pulse 77 05/24/21 11:31 Resp 19 05/24/21 11:15 BP 172/82 H 05/24/21 11:31 Pulse Ox 94 05/24/21 11:31 Body Mass Index 27.8 Const: Other: General: AO X 3, no acute distress HEENT left process stripper nystagmus Resp: CTA bilateral CVS: S1,S2,RRR GI: +BS, NT, no distention Skin: No rash Neuro: motor grossly intact Psych: appropriate affect Objective Data Current Medications Generic Name Dose Route Start Last Admin Trade Name Freq PRN Reason Stop Dose Admin Acetaminophen 650 mg 05/22/21 15:37 05/24/21 07:47 Acetaminophen 325 Mg Tablet PO 650 mg Q6H PRN Administration Pain, Mild (Pain Scale 1-3) Amlodipine Besylate 5 mg 05/23/21 09:00 05/24/21 07:45 Amlodipine Besylate 5 Mg Tablet PO 5 mg DAILY RAMONA Administration Protocol Lipase/Protease/Amylase 1 cap 05/23/21 09:00 05/24/21 07:45 Lipase/Prot/Amylase 24/76/120k 1 Cap Capsule. PO 1 cap QID RAMONA Administration Aspirin 81 mg 05/23/21 14:30 05/24/21 07:45 Aspirin Enteric Coated 81 Mg Tablet. PO 81 mg DAILY RAMONA Administration Atorvastatin Calcium 40 mg 05/24/21 21:00 Atorvastatin Calcium 40 Mg Tablet PO BEDTIME RAMONA Chlordiazepoxide HCl 10 mg 05/23/21 09:08 Chlordiazepoxide Hcl 5 Mg Capsule PO BEDTIME PRN Anxiety Fluticasone Propionate 1 spray 05/23/21 08:51 05/23/21 15:36 Fluticasone Propionate Nasal 16 Gm [place] NOSTRIL-B 1 spray DAILY PRN Administration Allergic Symptoms Hydrochlorothiazide 12.5 mg 05/23/21 21:00 05/23/21 22:07 Hydrochlorothiazide 12.5 Mg Tablet PO 12.5 mg BEDTIME RAMONA Administration Lisinopril 20 mg 05/23/21 21:00 05/23/21 22:06 Lisinopril 20 Mg Tablet PO 20 mg BEDTIME RAMONA Administration Meclizine HCl 12.5 mg 05/24/21 10:47 05/24/21 11:18 Meclizine Hcl 12.5 Mg Tablet PO 12.5 mg Q6H PRN Administration Vertigo Melatonin 6 mg 05/22/21 15:41 Melatonin 3 Mg Tablet PO BEDTIME PRN Insomnia Omeprazole 20 mg 05/23/21 09:00 05/24/21 07:45 Omeprazole 20 Mg Capsule.Dr PO 20 mg BID RAMONA Administration Paroxetine HCl 30 mg 05/23/21 21:00 05/23/21 22:06 Paroxetine Hcl 30 Mg Tablet PO 30 mg BEDTIME RAMONA Administration Pharmacy Consult 1 each 05/22/21 14:38 Consult Rx Perform Med Rec MISCELLANE ONCE PRN Consult order Rivaroxaban 10 mg 05/23/21 09:00 05/24/21 07:45 Rivaroxaban 10 Mg Tablet PO 10 mg DAILY RAMONA Administration Sodium Chloride 3 ml 05/22/21 16:00 05/24/21 07:50 0.9 % Sodium Chloride Flush 3 Ml Syringe IVFLUSH Not Given QSHIFT [facility]ENDING [facility] TO [facility] Labs CBC & Chem 7: 05/22/21 10:23 05/23/21 05:27 Labs: Laboratory Results - last 24 hr 05/24/21 05:37 Triglycerides 115 Cholesterol 199 LDL Cholesterol, Calc 111 HDL Cholesterol 65 Quality Stroke Does the patient have a stroke diagnosis?: No VTE Prior VTE?: No VTE Risk Level:: Medical - moderate - high VTE Device Contraindication: N/A - Device Ordered VTE Drug Contraindication: N/A - Med Ordered Assessment and Plan (1) Vertigo: Status: Acute (2) HTN (hypertension), benign: Status: Acute (3) Rheumatoid arthritis: Status: Acute Assessment and Plan: 70/feme with history lupus, RA, HTN, here with acute vertigo 1/vertigo/Dyplopia--MRI was negative but has lukas stem stroke -supportive care -IVF -PRN Meclzine -MRI to rule posterior fosa stroke -Neuro consult PT/OT -eye patch -echo ASA HLD--[id number], high instensity statin Lipitor 40 at HS Hypokalemia--d/t HCTZ, replace, check Mag, consider changing HCTZ to chorthalidone at discharge 2/HTN--Uncotrolled, continue HCTZ (increase , Lisinopril to 30. Incrase Norvasc to 7.25 and consider Aldactone if peristently high 3/ Lupus--not active 4/Depression--Paroxetine Xarelto for DVT prophylaxis Dispo: STR, by tomorrow Full code
--- NOTE | 2021-05-24 11:42 | MHC.STROKE ---
Addendum entered by Kim Sewell RN 06/04/21 14:53: 06/04/21 I DID CLARIFY THE DISCHARGE DX WITH DR DEUTSCH, IT IS A BRAINSTEM ISCHEMIC STROKE. HE ALSO INCLUDED ASPIRIN 81MG ON HIS DISCHARGED SUMMARY BUT IT WAS NOT ON THE DISCHARGE INSTRUCTIONS. SHE IS TO BE ONLY ASPIRIN 81MG DAILY. I CALLED THE PATIENT TO BE SURE SHE WAS CLEAR AND I ALSO CALLED DR GUPTA OFFICE. Original Note: 05/22/21 1001 EMS PRE-NOTIFICATION NOT A STROKE ALERT, PATIENT ARRIVED AT 1007. 05/22/21 1115 I RECEIVED A [employer] MESSAGE FROM DR STOCKTON REGARDING A PATIENT THAT CAME IN WITH DIZZINESS, N/V, RECENT LEFT EARACHE, NYSTAGMUS. NIHSS = 0, CT HEAD DONE AND PATIENT IS GOING TO MRI. I MET WITH THE PATIENT TODAY AND DISCUSSED HER DIAGNOSIS PER DR CARRASCO. I REVIEWED HER TIMELINE. SHE SAID SHE WASN'T FEELING GOOD FOR A FEW DAYS SINCE 05/20, SINUS INFECTION, ALLERGIES. ON 05/22/21 AT 1000 HER SYMPTOMS BECAME WORSE, VERY DIZZY, BLURRED VISION OR SHE COULDN'T SEE RIGHT. HER MRI DID NOT REVEAL AN ACUTE STROKE STROKE BUT AFTER DR CARRASCO'S EVALUATION, HE SUSPECTED A BRAINSTEM STROKE. SHE WOULD BE EXCLUDED FROM TPA (ALTEPLASE) BASED ON NIHSS = 0, UNCLEAR ONSET AND CARE TEAM UNABLE TO DETERMINE ELIGIBILITY BASED ON TESTS RESULTS. I DID DISCUSS THIS WITH DR STOCKTON AND SHE CONCURS. I SPENT A LONG TIME WITH THE PATIENT REVIEWING THE PLAN OF CARE AND ANSWERING HER QUESTIONS WHILE PROVIDING REASSURANCE. STROKE EDUCATION REINFORCED.
[2021-05-24] MEDS: lisinopriL 20 MG TABLET PO (12:19)
[2021-05-24] MEDS: amLODIPine Besylate 2.5 MG TABLET PO (12:19)
[2021-05-24 13:20] LABS: Anion Gap 10 (12-20); Blood Urea Nitrogen 6 mg/dL (9-16); Carbon Dioxide 28 mmol/L (22-29); Chloride 106 mmol/L (96-108); Creatinine Clr Calc Pharmacy 66.2; Estimated Glomerular Filt Rate > 60; Glucose Random 106 mg/dL (60-115); Potassium 3.4 mmol/L (3.3-5.1); Sodium 141 mmol/L (135-145)
--- NOTE | 2021-05-24 14:00 | CA_ITS ---
Transthoracic Echocardiogram Patient (Last, First, Middle): Renata Fulton M Gender: Female Date of : 1950 Age: 70 Procedure Date: 05/24/2021 Procedure Type: Transthoracic Echocardiogram Location: [facility] [place] Height: 157.48 cm Weight: 68.95 kg BSA: 1.70 m2 Heart Rate: bpm BP: 172 / 82 mmHg Coin Purse Assembler: CARMELA Referring MD: Rui Meyers MD Pad Extraction Tender: Aramis Starkey MD Symptoms: stroke Study Quality: Good ECG Rhythm: Sinus Conclusions: - 1. Normal LV systolic function with impaired relaxation filling pattern 2. Mildly dilated left atrium 3. Normal cardiac valvular Doppler 4. Normal RV systolic pressure 5. No pericardial effusion Findings Left Ventricle Normal left ventricular size, thickness, and systolic function. The visually estimated ejection fraction is between 60-65%. Spectral Doppler is indicative of an impaired relaxation filling pattern. E/E prime ratio is between 8 and 15 consistent with indeterminate filling pressures. Right Ventricle Normal right ventricular cavity size and systolic function. Atria The left atrium is mildly dilated. There is a mobile atrial septum noted. Interatrial shunt cannot be excluded. The right atrium is normal in size. Aortic Valve Normal aortic valve structure and function. There is no aortic valve stenosis. There is no aortic valve regurgitation. Mitral Valve Normal mitral valve structure and function. There is trace mitral valve regurgitation. There is no mitral valve stenosis. Pulmonic Valve The pulmonic valve was not well visualized. Tricuspid Valve Likely normal tricuspid valve structure and function. There is trace tricuspid valve regurgitation. The right ventricular systolic pressure is normal. The right ventricular systolic pressure is 22 mmHg. Normal right atrial pressure. There is no evidence of pulmonary hypertension. Great Vessels All visible segments of the aorta are normal in size. The pulmonary artery was not well visualized. Venous The inferior vena cava is normal in size and collapses greater than 50% with inspiration. Pericardium/Pleural There is no evidence of pericardial effusion. Prior Study Comparison No prior study available for comparison. Recommendations, Care & Conclusions Recommend contrast study to evaluate intracardiac shunting. Measurements 2D Linear Measurements IVSd: 1.07 0.6-0.9/0.6-1.0 cm LVIDd: 4.04 3.9-5.3/4.2-5.9 cm LVIDd Index: 2.38 2.4-3.2/2.2-3.1 cm/m2 LVIDs: 2.51 2.0-3.6 cm LVPWd: 1.07 0.7-1.1 cm Ao Root: 3.20 2.1-3.5 cm LA Diam: 3.60 2.7-3.8/3.0-4.0 cm LAIDs Index: 2.12 1.5-2.3 cm/m2 LV Mass: 176.89 67-162/88-224 g LV Mass Index: 104.05 43-95/49-115 g/m2 LVOT Diam: 2.00 3.0+(-)1.3 cm Mitral Valve MV Pk E: 0.80 MV PK A: 1.18 MV Decel Time: 187.00 E/A: 0.70 E'Lateral: 5.11 E'Medial: 4.35 E/E' Med: 18.30 E/E' Lat: 15.60 PHT: 55.00 MVA PHT: 4.00 Decel Duchesne: 4.26 Aortic Valve AoV Pk Chris: 1.47 AoV Mn Chris: 0.82 AoV VTI: 0.34 AoV Pk Grad: 9.00 Aov Mn Grad: 3.00 SANJAY Cont.VTI: 2.12 LVOT LVOT Pk Chris: 0.92 LVOT Mn Chris: 0.67 LVOT VTI: 0.23 LVOT Pk Grad: 3.00 LVOT Mn Grad: 2.00 LVOT Diam: 2.00 LVOT Area: 3.14 Diastolic Function MV Pk E: 0.80 MV Pk A: 1.18 E/A: 0.70 E'Medial: 4.35 E/E' Med: 18.30 E' Laterial: 5.11 E/E' Lat: 15.60 Tricuspid Valve TR Pk Chris: 2.17 TR Pk Grad: 19.00 RA Press: 3.00 RVSP: 22.00 Great Vessels Aorta Ao Root-2D: 3.20 2.0-3.7 cm Ao Asc: 3.20 2.1-3.4 cm Pulmonary Valve PV Pk Chris: 0.86 Peak PV Grad: 3.00 Updated in Other Vendor System with Status of Final Aramis Starkey MD electronically signed on 05/24/2021 3:38:39 PM with status of Final
[2021-05-24] MEDS: 0.9 % Sodium Chloride Flush 3 ML SYRINGE IVFLUSH ×2 (18:22→20:27)
[2021-05-24] MEDS: PARoxetine HCL 30 MG TABLET PO (20:26)
[2021-05-24] MEDS: hydroCHLOROthiazide 12.5 MG TABLET PO (20:26)
[2021-05-24] MEDS: Atorvastatin Calcium 40 MG TABLET PO (20:26)
[2021-05-25] VITALS (10 sets, daily range): BP systolic 140–188; BP diastolic 78–102; PULSE 67–101; RESP 16–18; TEMP 36.2–36.9; O2SAT 94–96
[2021-05-25] MEDS: 0.9 % Sodium Chloride Flush 3 ML SYRINGE IVFLUSH ×3 (07:49→20:37)
[2021-05-25] MEDS: Rivaroxaban 10 MG TABLET PO (07:50)
[2021-05-25] MEDS: Lipase/Prot/Amylase 24/76/120K 1 CAP CAPSULE.DR PO ×4 (07:50→20:36)
[2021-05-25] MEDS: Omeprazole 20 MG CAPSULE.DR PO ×2 (07:50→20:36)
[2021-05-25] MEDS: Aspirin Enteric Coated 81 MG TABLET.DR PO (07:50)
[2021-05-25] MEDS: amLODIPine Besylate 10 MG TABLET PO (07:51)
[2021-05-25] MEDS: Spironolactone 25 MG TABLET PO (07:51)
[2021-05-25] MEDS: lisinopriL 10 MG TABLET 30 MG PO (07:51)
--- NOTE | 2021-05-25 13:25 | P.PNIM_ITS ---
Subjective Subjective Date of Service: 05/25/21 Interval History: Seen in f/u for vertigo, double vision and brain stem stroke. 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 Resp: CTA bilateral CVS: S1,S2,RRR GI: +BS, NT, no distention Skin: No rash Neuro: motor grossly intact Psych: appropriate affect Objective Data Current Medications Generic Name Dose Route Start Last Admin Trade Name Heladioq PRN Reason Stop Dose Admin Acetaminophen 650 mg 05/22/21 15:37 05/24/21 07:47 Acetaminophen 325 Mg Tablet PO 650 mg Q6H PRN Administration Pain, Mild (Pain Scale 1-3) Amlodipine Besylate 10 mg 05/25/21 09:00 05/25/21 07:51 Amlodipine Besylate 10 Mg Tablet PO 10 mg DAILY RAMONA Administration Protocol Lipase/Protease/Amylase 1 cap 05/23/21 09:00 05/25/21 11:52 Lipase/Prot/Amylase 24/76/120k 1 Cap Capsule. PO 1 cap QID RAMONA Administration Aspirin 81 mg 05/23/21 14:30 05/25/21 07:50 Aspirin Enteric Coated 81 Mg Tablet. PO 81 mg DAILY RAMONA Administration Atorvastatin Calcium 40 mg 05/24/21 21:00 05/24/21 20:26 Atorvastatin Calcium 40 Mg Tablet PO 40 mg BEDTIME RAMONA Administration Chlordiazepoxide HCl 10 mg 05/23/21 09:08 Chlordiazepoxide Hcl 5 Mg Capsule PO BEDTIME PRN Anxiety Fluticasone Propionate 1 spray 05/23/21 08:51 05/23/21 15:36 Fluticasone Propionate Nasal 16 Gm [place] NOSTRIL-B 1 spray DAILY PRN Administration Allergic Symptoms Hydrochlorothiazide 25 mg 05/25/21 21:00 Hydrochlorothiazide 25 Mg Tablet PO BEDTIME RAMONA Lisinopril 30 mg 05/25/21 09:00 05/25/21 07:51 Lisinopril 10 Mg Tablet PO 30 mg DAILY RAMONA Administration Protocol Meclizine HCl 12.5 mg 05/24/21 10:47 05/24/21 11:18 Meclizine Hcl 12.5 Mg Tablet PO 12.5 mg Q6H PRN Administration Vertigo Melatonin 6 mg 05/22/21 15:41 Melatonin 3 Mg Tablet PO BEDTIME PRN Insomnia Omeprazole 20 mg 05/23/21 09:00 05/25/21 07:50 Omeprazole 20 Mg Capsule.Dr PO 20 mg BID RAMONA Administration Paroxetine HCl 30 mg 05/23/21 21:00 05/24/21 20:26 Paroxetine Hcl 30 Mg Tablet PO 30 mg BEDTIME RAMONA Administration Pharmacy Consult 1 each 05/22/21 14:38 Consult Rx Perform Med Rec MISCELLANE ONCE PRN Consult order Rivaroxaban 10 mg 05/23/21 09:00 05/25/21 07:50 Rivaroxaban 10 Mg Tablet PO 10 mg DAILY RAMONA Administration Sodium Chloride 3 ml 05/22/21 16:00 05/25/21 07:49 0.9 % Sodium Chloride Flush 3 Ml Syringe IVFLUSH 3 ml QSHIFT RAMONA Administration Spironolactone 25 mg 05/25/21 09:00 05/25/21 07:51 Spironolactone 25 Mg Tablet PO 25 mg DAILY RAMONA Administration Protocol Labs CBC & Chem 7: 05/22/21 10:23 05/24/21 12:18 Quality Stroke Does the patient have a stroke diagnosis?: No VTE Prior VTE?: No VTE Risk Level:: Medical - moderate - high VTE Device Contraindication: N/A - Device Ordered VTE Drug Contraindication: N/A - Med Ordered Assessment and Plan (1) Vertigo: Status: Acute (2) HTN (hypertension), benign: Status: Acute (3) Rheumatoid arthritis: Status: Acute Assessment and Plan: 70/feme with history lupus, RA, HTN, here with acute vertigo 1/vertigo/Dyplopia--MRI was negative but has lukas stem stroke -supportive care -IVF -PRN Meclzine -MRI to rule posterior fosa stroke -Neuro consult PT/OT -eye patch -echo ASA HLD--[id number], high instensity statin Lipitor 40 at HS Hypokalemia--d/t HCTZ, replace, check Mag, consider changing HCTZ to chorthalid one at discharge 2/HTN--Uncotrolled, continue HCTZ (increase , Lisinopril to 30. Incrase Norvasc to 10 and Aldactone 3/ Lupus--not active 4/Depression--Paroxetine Xarelto for DVT prophylaxis Dispo: STR, by tomorrow Full code
[2021-05-25] MEDS: Acetaminophen 325 MG TABLET 650 MG PO (16:42)
[2021-05-25] MEDS: PARoxetine HCL 30 MG TABLET PO (20:36)
[2021-05-25] MEDS: Atorvastatin Calcium 40 MG TABLET PO (20:36)
[2021-05-25] MEDS: hydroCHLOROthiazide 25 MG TABLET PO (20:36)
[2021-05-25] MEDS: chlordiazePOXIDE HCl 5 MG CAPSULE 10 MG PO (20:36)
[2021-05-26] VITALS (9 sets, daily range): BP systolic 146–181; BP diastolic 77–87; PULSE 68–95; RESP 15–18; TEMP 36.2–36.8; O2SAT 93–96
[2021-05-26] MEDS: 0.9 % Sodium Chloride Flush 3 ML SYRINGE IVFLUSH ×3 (07:56→20:06)
[2021-05-26] MEDS: Rivaroxaban 10 MG TABLET PO (07:56)
[2021-05-26] MEDS: lisinopriL 10 MG TABLET 30 MG PO (07:56)
[2021-05-26] MEDS: Lipase/Prot/Amylase 24/76/120K 1 CAP CAPSULE.DR PO ×4 (07:56→20:06)
[2021-05-26] MEDS: Aspirin Enteric Coated 81 MG TABLET.DR PO (07:56)
[2021-05-26] MEDS: Omeprazole 20 MG CAPSULE.DR PO ×2 (07:56→20:06)
[2021-05-26] MEDS: Spironolactone 25 MG TABLET PO (07:57)
[2021-05-26] MEDS: amLODIPine Besylate 10 MG TABLET PO (07:57)
--- NOTE | 2021-05-26 10:58 | MHC.CM.PN ---
CM MET WITH PT TO DISCUSS DC PLANS. PT REPORTS SHE FEELS WELL ENOUGH TO GO HOME AND IS NO LONGER INTERESTED IN ACUTE OR SHORT TERM REHAB. PT IS AGREEABLE TO HOME PT AND REQUESTS [facility]. PT WILL DC HOME TODAY WITH A REFERRAL TO [facility] FOR PT FAMILY WILL TRANSPORT
--- NOTE | 2021-05-26 11:04 | HO.PM.IMPN ---
Subjective Subjective Date of Service: 05/26/21 Interval History: Seen in f/u for vertigo, double vision and brain stem stroke. 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 Resp: CTA bilateral CVS: S1,S2,RRR GI: +BS, NT, no distention Skin: No rash Neuro: motor grossly intact Psych: appropriate affect Objective Data Current Medications Generic Name Dose Route Start Last Admin Trade Name Heladioq PRN Reason Stop Dose Admin Acetaminophen 650 mg 05/22/21 15:37 05/25/21 16:42 Acetaminophen 325 Mg Tablet PO 650 mg Q6H PRN Administration Pain, Mild (Pain Scale 1-3) Amlodipine Besylate 10 mg 05/25/21 09:00 05/26/21 07:57 Amlodipine Besylate 10 Mg Tablet PO 10 mg DAILY RAMONA Administration Protocol Lipase/Protease/Amylase 1 cap 05/23/21 09:00 05/26/21 07:56 Lipase/Prot/Amylase 24/76/120k 1 Cap Capsule. PO 1 cap QID RAMONA Administration Aspirin 81 mg 05/23/21 14:30 05/26/21 07:56 Aspirin Enteric Coated 81 Mg Tablet. PO 81 mg DAILY RAMONA Administration Atorvastatin Calcium 40 mg 05/24/21 21:00 05/25/21 20:36 Atorvastatin Calcium 40 Mg Tablet PO 40 mg BEDTIME RAMONA Administration Chlordiazepoxide HCl 10 mg 05/23/21 09:08 05/25/21 20:36 Chlordiazepoxide Hcl 5 Mg Capsule PO 10 mg BEDTIME PRN Administration Anxiety Fluticasone Propionate 1 spray 05/23/21 08:51 05/23/21 15:36 Fluticasone Propionate Nasal 16 Gm [place] NOSTRIL-B 1 spray DAILY PRN Administration Allergic Symptoms Hydrochlorothiazide 25 mg 05/25/21 21:00 05/25/21 20:36 Hydrochlorothiazide 25 Mg Tablet PO 25 mg BEDTIME RAMONA Administration Lisinopril 30 mg 05/25/21 09:00 05/26/21 07:56 Lisinopril 10 Mg Tablet PO 30 mg DAILY RAMONA Administration Protocol Lisinopril 10 mg 05/26/21 11:03 Lisinopril 10 Mg Tablet PO 05/26/21 11:04 ONCE ONE Protocol Meclizine HCl 12.5 mg 05/24/21 10:47 05/24/21 11:18 Meclizine Hcl 12.5 Mg Tablet PO 12.5 mg Q6H PRN Administration Vertigo Melatonin 6 mg 05/22/21 15:41 Melatonin 3 Mg Tablet PO BEDTIME PRN Insomnia Omeprazole 20 mg 05/23/21 09:00 05/26/21 07:56 Omeprazole 20 Mg Capsule.Dr PO 20 mg BID RAMONA Administration Paroxetine HCl 30 mg 05/23/21 21:00 05/25/21 20:36 Paroxetine Hcl 30 Mg Tablet PO 30 mg BEDTIME RAMONA Administration Pharmacy Consult 1 each 05/22/21 14:38 Consult Rx Perform Med Rec MISCELLANE ONCE PRN Consult order Rivaroxaban 10 mg 05/23/21 09:00 05/26/21 07:56 Rivaroxaban 10 Mg Tablet PO 10 mg DAILY RAMONA Administration Sodium Chloride 3 ml 05/22/21 16:00 05/26/21 07:56 0.9 % Sodium Chloride Flush 3 Ml Syringe IVFLUSH 3 ml QSHIFT RAMONA Administration Spironolactone 25 mg 05/25/21 09:00 05/26/21 07:57 Spironolactone 25 Mg Tablet PO 25 mg DAILY RAMONA Administration Protocol Labs CBC & Chem 7: 05/22/21 10:23 05/24/21 12:18 Quality Stroke Does the patient have a stroke diagnosis?: No VTE Prior VTE?: No VTE Risk Level:: Medical - moderate - high VTE Device Contraindication: N/A - Device Ordered VTE Drug Contraindication: N/A - Med Ordered Assessment and Plan (1) Vertigo: Status: Acute (2) HTN (hypertension), benign: Status: Acute (3) Rheumatoid arthritis: Status: Acute Assessment and Plan: 70/feme with history lupus, RA, HTN, here with acute vertigo 1/vertigo/Dyplopia-d/t brain stem stroke. BP control, Stain, ASA, PT/OT, double vision is better. She is declining STR HLD--[id number], high instensity statin Lipitor 40 at HS Hypokalemia--d/t HCTZ, replace, check Mag, consider changing HCTZ to chorthalidone at discharge 2/HTN--Resistant HTN,on Lisinopril 30, Norvasc 10, HCTZ 25 and yet BP still high. Increase Lisinopril to 40, Aldactone 25 daily 3/ Lupus--not active 4/Depression--Paroxetine Xarelto for DVT prophylaxis Dispo: STR, by tomorrow Full code
[2021-05-26] MEDS: lisinopriL 10 MG TABLET PO (12:14)
[2021-05-26] MEDS: Acetaminophen 325 MG TABLET 650 MG PO (16:54)
[2021-05-26] MEDS: Atorvastatin Calcium 40 MG TABLET PO (20:05)
[2021-05-26] MEDS: PARoxetine HCL 30 MG TABLET PO (20:05)
[2021-05-26] MEDS: chlordiazePOXIDE HCl 5 MG CAPSULE 10 MG PO (20:06)
[2021-05-26] MEDS: hydroCHLOROthiazide 25 MG TABLET PO (20:06)
[2021-05-27] VITALS (7 sets, daily range): BP systolic 150–156; BP diastolic 72–94; PULSE 69–96; RESP 18–19; TEMP 36.2–36.8; O2SAT 93–96
[2021-05-27] MEDS: Aspirin Enteric Coated 81 MG TABLET.DR PO (09:58)
[2021-05-27] MEDS: amLODIPine Besylate 10 MG TABLET PO (09:58)
[2021-05-27] MEDS: lisinopriL 10 MG TABLET 30 MG PO (09:58)
[2021-05-27] MEDS: 0.9 % Sodium Chloride Flush 3 ML SYRINGE IVFLUSH (09:58)
[2021-05-27] MEDS: Omeprazole 20 MG CAPSULE.DR PO (09:59)
[2021-05-27] MEDS: Spironolactone 25 MG TABLET PO (09:59)
[2021-05-27] MEDS: Lipase/Prot/Amylase 24/76/120K 1 CAP CAPSULE.DR PO ×2 (09:59→12:16)
[2021-05-27] MEDS: Acetaminophen 325 MG TABLET 650 MG PO (09:59)
[2021-05-27] MEDS: Rivaroxaban 10 MG TABLET PO (09:59)
--- NOTE | 2021-05-27 11:26 | MHC.CM.PN ---
pt to be dcd today per md pt will going home no services
--- NOTE | 2021-05-27 11:58 | P.DS_ITS ---
DS: Providers Provider Date of Service: 05/27/21 Date of admission: 05/23/21 14:30 Primary care physician: Arnulfo Villalba MD Consults: 05/23/21 08:50 Consult to Neurology Routine Consulting Provider: [facility] Reason for consultation: Double vision DS: Diagnosis Discharge Diagnosis (1) Vertigo: Status: Acute (2) HTN (hypertension), benign: Status: Acute (3) Rheumatoid arthritis: Status: Acute DS: Medications Discharge Medications Home Medications: Home Medications Medication Instructions Recorded Confirmed fluticasone propionate 50 1 spray INTRANASAL DAILY PRN 08/08/20 05/22/21 mcg/actuation nasal spray,suspension lisinopril 20 1 tab PO BEDTIME 08/08/20 05/22/21 mg-hydrochlorothiazide 12.5 mg tablet omeprazole 20 mg capsule,delayed 20 mg PO BID 08/08/20 05/22/21 release paroxetine HCl 30 mg tablet 30 mg PO BEDTIME 08/08/20 05/22/21 chlordiazepoxide HCl 1 cap PO BEDTIME PRN 05/22/21 05/22/21 Previous Rx's Medication Instructions Recorded [id number] 1 cap PO QID 30 Days #120 cap 10/05/20 24,000-76,000-120,000 unit capsule,delayed rel DS: Summary Hospital Course Hospital Course: Date of Service: 05/22/21 Chief Complaint: Vertigo 70 year female with lupus, HTN, Rheumatoid arthritis who presents with acute on set of vertigo. She relates that she was driving when she first started having the symptoms vertigo, blurry vision and nausea and also has been seeing double, about a week earlier she had earche and upper respiratory symptoms. NIH stroke scle is low, CT of head is negative. Her sympoms are better yet persists and seem worse with head movement. Additionally, she has magneseium of 1.1 and potassium of 3.0 and both been corrected intravenously. Vertigo is treated with hydration, Ativan and Meclizine Hospital course; Patient presented with double vision and very high blood pressure and although CT of the head was negative for stroke and MRI of the head also was negative for stroke, there was high suspicion that the patient suffer brainstem infarct causing he her symptoms of double vision and a vertigo. She had an echocardiogram that showed no intracardiac clot. She was managed medically with aspirin, Lipitor for HLD LDL of 111, and most importantly blood pressure been control. She had difficult to control high blood pressure with systolic blood pressure anemia 200. Blood pressure medication have been adjusted with increase of lisinopril to 40 mg daily, Norvasc has been added at 10 mg daily now, hydrochlorothiazide has been increased to 25 mg daily, Aldactone 25 mg p.o. daily has been added. Overall blood pressure is much better although not ideal yet, she will need further blood pressure adjustment on outpatient basis. As far as a stroke symptom the double vision has significantly improved, in fact the patient does not believe that she is having any more double vision. Vertigo has also resolved. She has been evaluated by Physical therapy and Occupational therapy, initially there was an impression at the patient may benefit from short-term rehab but she has significantly make progress and therefore it is not recommended that she will do just as well at home with home services. In fact the patient at this point is not interested in going to short-term rehab and will rather go home. Will therefore arrange for visiting robert garrett to evaluated patient and up at home. Patient evaluated by Neurology service with recommendation to get echo, management with ASA, Statin and blood pressure, and expected to have full recovery Final diagnosis: Acute brainstem infarct Resistant hypertension Hyperlipidemia Vertigo Diplopia Hypokalemia Time Spent with Patient Time attestation: Total time spent providing and/or coordinating discharge services: Discharge coordination time: Greater than 30 minutes Quality: Stroke Does the patient have a stroke diagnosis?: No Physical Exam Vital Signs: Vital Signs: Last Vital Signs Temp 98.3 F 05/27/21 11:51 Pulse 70 05/27/21 11:51 Resp 18 05/27/21 11:51 BP 156/90 H 05/27/21 11:51 Pulse Ox 95 05/27/21 11:51 Body Mass Index 27.8 Discharge Plan Discharge Anticipated Discharge Date/Time: 05/27/21 11:25 Patient Disposition: Home Health Service Discharge Diagnosis: Acute stroke, difficult to control blood pressure Referrals: [facility] [Other] - 1 Week Arnulfo Villalba MD [Primary Care Provider] - 1 Week Discharge Medications: New atorvastatin 40 mg Tablet 40 mg PO BEDTIME Qty: 30 RF: 0 spironolactone 25 mg Tablet 25 mg PO DAILY Qty: 30 RF: 0 amlodipine 10 mg Tablet 10 mg PO DAILY Qty: 30 RF: 0 hydrochlorothiazide 25 mg Tablet 25 mg PO BEDTIME Qty: 30 RF: 0 lisinopril 40 mg tablet 40 mg PO DAILY Qty: 30 RF: 0 Continued [id number]-[id number] 24,000-76,000 -120,000 unit capsule,delayed release(DR/EC) 1 cap PO QID 30 Days Qty: 120 RF: 3 chlordiazepoxide HCl 10 mg capsule 1 cap PO BEDTIME PRN (Reason: Anxiety) RF: 0 paroxetine HCl 30 mg tablet 30 mg PO BEDTIME RF: 0 fluticasone propionate 50 mcg/actuation spray,suspension 1 spray intranasal DAILY PRN (Reason: Allergic Symptoms) RF: 0 omeprazole 20 mg capsule,delayed release(DR/EC) 20 mg PO BID RF: 0 Discontinued lisinopril-hydrochlorothiazide 20-12.5 mg tablet 1 tab PO BEDTIME RF: 0 Discharge Orders: Discharge Order (Routine); Ordered 05/27/21 Ordered By: Rui Meyers Diet: advance to usual diet Activity on Discharge: As tolerated Stand Alone Forms: Patient Portal Discharge page Care Plan Goals: Full recover from stroke and control of blood pressure Health Concerns: Storke, difficult to control blood pressure Plan of Treatment: Take Aspirin, Lipitor and all your blood pressure medication and foloow up with your Doctor in a week, visiting nurse will be coming to your house to check up on you Assessment: as above Discharge Date/Time: 05/27/21 14:30
[2021-05-27 12:37] LABS: Anion Gap 15 (12-20); Blood Urea Nitrogen 17 mg/dL (9-16); Calcium 9.8 mg/dL (8.4-10.2); Carbon Dioxide 27 mmol/L (22-29); Chloride 102 mmol/L (96-108); Creatinine Clr Calc Pharmacy 58.7; Estimated Glomerular Filt Rate > 60; Glucose Random 126 mg/dL (60-115); Potassium 3.6 mmol/L (3.3-5.1); Sodium 140 mmol/L (135-145)
--- NOTE | 2021-05-27 13:02 | MHC.CM.PN ---
pt dcd home with hvns for sn for bp checks
== END 2021-05-27 14:30 | disposition home health service (06) | DRG 66 ==
LOC: HO.ED 14:39 → HO.EDOVER 18:31 → HO.IMC 22:39
PROVIDERS: Admitting Provider Internal Medicine; Emergency Provider Emergency Medicine; PCP Internal Medicine; Visit Provider Internal Medicine
DX: I63.12 Cerebral infarction due to embolism of basilar artery (principal); K21.9 Gastro-esophageal reflux disease without esophagitis; M32.9 Systemic lupus erythematosus, unspecified; E87.6 Hypokalemia; F32.9 Major depressive disorder, single episode, unspecified; I10 Essential (primary) hypertension; H53.2 Diplopia; F41.9 Anxiety disorder, unspecified; M06.9 Rheumatoid arthritis, unspecified; E78.5 Hyperlipidemia, unspecified; E83.42 Hypomagnesemia; Z87.891 Personal history of nicotine dependence; Z20.822 Contact with and (suspected) exposure to COVID-19; Z88.2 Allergy status to sulfonamides; Z88.5 Allergy status to narcotic agent; Z79.51 Long term (current) use of inhaled steroids; Z79.899 Other long term (current) drug therapy
CPT/HCPCS: 36415; 70450; 70551; 80048; 80061; 80076; 81003; 83735; 85025; 87635; 93005; 93306; 97112; 97116; 97163; 97167; 97535; 99284; J2060; J2405; J3475

== ENCOUNTER 2021-06-04 13:58 | Outpatient (REF) | payer MEDICARE, SELFPAY ==
[2021-06-04 15:19] LABS: Magnesium 1.1 mg/dL (1.6-2.6); Potassium 4.5 mmol/L (3.3-5.1)
== END 2021-06-04 13:59 | disposition home or self-care (01) ==
LOC: HO.LNP 13:58
PROVIDERS: Visit Provider Internal Medicine
DX: E87.6 Hypokalemia (principal)
CPT/HCPCS: 83735; 84132

== ENCOUNTER 2021-06-11 10:43 | Outpatient (REF) | payer MEDICARE, SELFPAY ==
[2021-06-11 12:13] LABS: Magnesium 1.1 mg/dL (1.6-2.6)
== END 2021-06-11 10:44 | disposition home or self-care (01) ==
LOC: HO.LNP 10:43
PROVIDERS: Visit Provider Internal Medicine
DX: E83.42 Hypomagnesemia (principal)
CPT/HCPCS: 83735

== ENCOUNTER 2021-06-17 10:21 | Outpatient (REF) | payer MEDICARE, SELFPAY ==
[2021-06-17 11:02] LABS: Magnesium 1.7 mg/dL (1.6-2.6)
== END 2021-06-17 10:22 | disposition home or self-care (01) ==
LOC: HO.LNP 10:21
PROVIDERS: Visit Provider Internal Medicine
DX: E83.42 Hypomagnesemia (principal)
CPT/HCPCS: 83735

== ENCOUNTER 2021-06-20 13:32 | Outpatient (REF) | payer MEDICARE, SELFPAY ==
[2021-06-20 15:04] LABS: Magnesium 1.7 mg/dL (1.6-2.6); Potassium 4.6 mmol/L (3.3-5.1)
== END 2021-06-20 13:33 | disposition home or self-care (01) ==
LOC: HO.LNP 13:32
PROVIDERS: Visit Provider Internal Medicine
DX: E87.6 Hypokalemia (principal)
CPT/HCPCS: 83735; 84132

== ENCOUNTER 2021-07-11 08:01 | Outpatient (REF) | payer MEDICARE, SELFPAY ==
--- NOTE | ~2021-07-11 | MM_ITS ---
EXAMINATION: MM SCREENING DIGITAL BREAST TOMOSYNTHESIS, BILATERAL CLINICAL INFORMATION: Screening. Asymptomatic. The lifetime risk of breast cancer based on the Tyrer-Cuzick Model is 8%. COMPARISON: Mammography: 07/05/2020, 01/21/2019, 12/29/2017 TECHNIQUE: Digital breast tomosynthesis is performed in both the craniocaudal and mediolateral oblique views along with computer-aided detection (CAD). Synthesized 2D images are generated from the tomosynthesis. FINDINGS: There are scattered areas of fibroglandular density (ACR BI-RADS breast composition Category b). There are no significant masses, abnormal calcifications, or other abnormalities. Parenchymal pattern is similar to prior studies. No developing density. The axilla and skin contours are unremarkable. MM/MM tomosynthesis screening BI IMPRESSION: No mammographic evidence of malignancy. ASSESSMENT: BI-RADS 2: Benign RECOMMENDATION: Routine annual mammography screening. This patient's information was entered into a reminder system with a target due date for their next mammogram.
== END 2021-07-11 08:02 | disposition home or self-care (01) ==
LOC: HO.MAMMO 08:01
PROVIDERS: PCP Internal Medicine; Visit Provider Internal Medicine
DX: Z12.31 Encounter for screening mammogram for malignant neoplasm of breast (principal)
CPT/HCPCS: 77063; 77067

== ENCOUNTER 2021-08-19 13:36 | Outpatient (REF) | payer MEDICARE, SELFPAY ==
[2021-08-19 13:42] LABS: MANUAL DIFF FLAG NO
[2021-08-19 13:46] LABS: Basophils Absolute Auto 0.1 X10*3/uL (0.0-0.2); Basophils Percent Auto 1.1 % (0-2); Eosinophils Absolute Auto 0.1 X10*3/uL (0.0-0.4); Eosinophils Percent Auto 2.6 % (0-4); Hematocrit 37.4 % (37-47); Hemoglobin 12.5 g/dl (12.0-16.0); Imm Gran Abs Auto 0.01 X10*3/uL (0.00-0.03); Imm Gran Pct Auto 0.2 % (0.0-0.4); Lymphocytes Absolute Auto 0.9 X10*3/uL (1.2-4.9); Lymphocytes Percent Auto 19.8 % (20-40); Mean Corpuscular HGB Conc 33.4 g/dl (31.0-35.0); Mean Corpuscular Hemoglobin 28.7 pg (27.0-33.0); Mean Corpuscular Volume 85.8 fL (80-98); Mean Platelet Volume 9.7 fL (9.4-12.3); Monocytes Absolute Auto 0.5 X10*3/uL (0.1-1.2); Monocytes Percent Auto 9.9 % (2-11); Neutrophils Absolute Auto 3.1 X10*3/uL (2.0-8.3); Neutrophils Percent Auto 66.4 % (45-73); Platelet Count 324 X10*3/uL (160-400); Red Blood Count 4.36 X10*6/uL (4.20-5.50); Red Cell Distribution Width 13.6 % (11.0-16.0); White Blood Count 4.7 X10*3/uL (4.8-10.8)
[2021-08-19 13:57] LABS: Alanine Aminotransferase 17 U/L (0-31); Albumin Level 4.4 g/dL (3.5-5.0); Alkaline Phosphatase 103 U/L (39-117); Anion Gap 15 (12-20); Aspartate Amino Transferase 26 U/L (5-31); Bilirubin Total 0.4 mg/dL (0.0-1.0); Blood Urea Nitrogen 11 mg/dL (9-16); Calcium 9.4 mg/dL (8.4-10.2); Carbon Dioxide 24 mmol/L (22-29); Chloride 96 mmol/L (96-108); Cholesterol 141 mg/dL; Estimated Glomerular Filt Rate 53; Glucose Fasting 85 mg/dL (60-99); HDL Cholesterol 65 mg/dL; LDL Cholesterol Calculated 50 mg/dl; Potassium 4.6 mmol/L (3.3-5.1); Sodium 130 mmol/L (135-145); Total Protein 7.1 g/dL (6.5-8.0); Triglycerides 133 mg/dL
[2021-08-19 15:30] LABS: Reflex LDLD? No
== END 2021-08-19 13:37 | disposition home or self-care (01) ==
LOC: HO.LNP 13:36
PROVIDERS: Visit Provider Internal Medicine
DX: I10 Essential (primary) hypertension (principal); E78.2 Mixed hyperlipidemia; E55.9 Vitamin D deficiency, unspecified; E87.6 Hypokalemia; E83.42 Hypomagnesemia
CPT/HCPCS: 80053; 80061; 82306; 85025

== ENCOUNTER 2021-08-29 08:10 | Outpatient (REF) | payer MEDICARE, SELFPAY | END 2021-08-29 08:11 | disposition home or self-care (01) | LOC: HO.LAB 08:10 | PROVIDERS: PCP Internal Medicine; Visit Provider Internal Medicine | DX: Z20.822 Contact with and (suspected) exposure to COVID-19 (principal) | CPT/HCPCS: C9803; U0003; U0005 ==

== ENCOUNTER 2021-09-03 13:44 | Outpatient (REF) | payer MEDICARE, SELFPAY ==
[2021-09-03 14:06] LABS: Anion Gap 15 (12-20); Carbon Dioxide 26 mmol/L (22-29); Chloride 99 mmol/L (96-108); Magnesium 1.1 mg/dL (1.6-2.6); Sodium 136 mmol/L (135-145)
== END 2021-09-03 13:45 | disposition home or self-care (01) ==
LOC: HO.LNP 13:44
PROVIDERS: Visit Provider Internal Medicine
DX: E87.1 Hypo-osmolality and hyponatremia (principal)
CPT/HCPCS: 80051; 83735

== ENCOUNTER 2021-09-10 10:47 | Outpatient (REF) | payer MEDICARE, SELFPAY ==
[2021-09-10 11:52] LABS: Magnesium 1.1 mg/dL (1.6-2.6)
== END 2021-09-10 10:48 | disposition home or self-care (01) ==
LOC: HO.LNP 10:47
PROVIDERS: PCP Internal Medicine; Visit Provider Internal Medicine
DX: E83.42 Hypomagnesemia (principal)
CPT/HCPCS: 83735

== ENCOUNTER 2021-09-17 10:59 | Outpatient (REF) | payer MEDICARE, SELFPAY ==
[2021-09-17 13:12] LABS: Magnesium 2.2 mg/dL (1.6-2.6)
== END 2021-09-17 11:00 | disposition home or self-care (01) ==
LOC: HO.LNP 10:59
PROVIDERS: PCP Internal Medicine; Visit Provider Internal Medicine
DX: E83.42 Hypomagnesemia (principal)
CPT/HCPCS: 83735

== ENCOUNTER → 2021-10-01 08:16 | Outpatient (BNVA) | payer MEDICARE, SELFPAY | PROVIDERS: PCP Internal Medicine; Visit Provider Nurse Practitioner | DX: R19.7 Diarrhea, unspecified (principal) | CPT/HCPCS: Q3014 ==

== ENCOUNTER 2021-10-02 | Outpatient (REF) | payer MEDICARE, SELFPAY | END 2021-10-02 00:01 | disposition home or self-care (01) | LOC: HO.LNP | PROVIDERS: Visit Provider Nurse Practitioner | DX: Z13.89 Encounter for screening for other disorder (principal) ==

== ENCOUNTER 2021-10-02 09:07 | Outpatient (REF) | payer MEDICARE, SELFPAY ==
[2021-10-02 10:41] LABS: Anion Gap 13 (12-20); C Reactive Protein 0.37 mg/dL (< or = 0.50); Carbon Dioxide 28 mmol/L (22-29); Chloride 102 mmol/L (96-108); Magnesium 1.8 mg/dL (1.6-2.6); Sodium 138 mmol/L (135-145)
[2021-10-04 12:01] LABS: Transglutaminase Ab IgG <1.0 U/mL; Transglutaminase IgA <1.0 U/mL
== END 2021-10-02 09:08 | disposition home or self-care (01) ==
LOC: HO.LAB 09:07
PROVIDERS: PCP Internal Medicine; Visit Provider Nurse Practitioner
DX: R19.7 Diarrhea, unspecified (principal)
CPT/HCPCS: 36415; 80051; 83516; 83735; 86140

== ENCOUNTER 2021-10-03 | Outpatient (REF) | payer MEDICARE, SELFPAY ==
[2021-10-03 15:20] LABS: CDiff Gene PCR NEGATIVE (Negative)
== END 2021-10-03 00:01 | disposition home or self-care (01) ==
LOC: HO.LNP
PROVIDERS: Visit Provider Nurse Practitioner
DX: R19.7 Diarrhea, unspecified (principal)
CPT/HCPCS: 83993; 87045; 87046; 87493

== ENCOUNTER → 2021-10-22 10:05 | Outpatient (BNVA) | payer MEDICARE, SELFPAY | PROVIDERS: PCP Internal Medicine; Referring Provider Internal Medicine; Visit Provider Nurse Practitioner | DX: K58.2 Mixed irritable bowel syndrome (principal); K52.1 Toxic gastroenteritis and colitis; K21.9 Gastro-esophageal reflux disease without esophagitis; R19.7 Diarrhea, unspecified | CPT/HCPCS: 99212 ==

== ENCOUNTER 2021-10-23 10:00 | Outpatient (RCR) | payer MEDICARE, SELFPAY ==
[2021-09-25 07:49] VITALS: BP 129/74
--- NOTE | 2021-09-25 11:55 | MHC.PT.EP ---
[facility] [place] Office [place] Office [place] Office [address] Ruthie Lynch [address] [phone] F: [phone] F: [phone] F: [phone] F: [phone] Physical Therapy Plan of Care Date of Evaluation: Date of Surgery: N/A Diagnosis: Unsteady gait when walking Assessment: Pt is a 71yo F with PMH including CVA in May. She presents today with reports of impaired gait and balance along with generalized LBP and B leg fatigue after functional mobility. She presents with current impairments in decreased LE strength, impaired balance, gait, and endurance. Her LBP and leg fatigue may be consistent with decreased strength and endurance secondary to a decrease in activity. She is limited functionally by prolonged standing, prolonged walking, and stair navigation. She is a good candidate for skilled PT services to address current impairments in order to facilitate return to PLOF. She will be seen 2x/week for 4 weeks and will be reassessed at that time. Frequency and Duration: The patient will be seen 2x/week for 4 weeks Short Term Goals: Pt will be I with HEP to promote self management of symptoms Pt will improve B quad strength by at least 1/3 grade Timber Robber Goals: Pt will demonstrate improvements in balance and confidence as evidenced by an improvement in ABC outcome measure of at least 10% Pt will tolerate ambulation for at least 20 min without needing a rest break Pt will demonstrate improvements in strength and endurance by an increase in 30 sec sit<>stand to at least 10 Treatment Plan: Modalities to reduce pain, spasms and effusion. Manual therapy to restore motion and function. Therapeutic exercise to improve strength and flexibility. Neuromuscular re-education for posture and balance. Therapeutic activities to return to functional activities of daily living. Electronically signed by: Deonna Gilbert, PT, DPT Please sign and return to therapist. Thank you for your referral.
--- NOTE | 2021-10-24 08:36 | MHC.PT.DC ---
[facility] [place] Office [place] Office [place] Office [address] [phone] F: [phone] F: [phone] F: [phone] F: [phone] Physical Therapy Discharge Report Diagnosis: Unsteady gait when walking Date of Surgery: N/A Date of Evaluation: 09/25/21 Date of Discharge: 10/24/21 Treatments to Date: 9 Cancellations to Date: No Shows to Date: Discharge Status: Achieved Goals Improved Function Independent with HEP Discharge Summary: Pt has made excellent progress since SOC. She has met her STGs and most of her LTGs. She has improved B quad strength and has also improved her standing and walking endurance. She is able to walk 20-30 min without needing a rest break. She has also improved her score on 30 second sit to stand from 7 on initial PT evaluation to 9 today. She has improved her score on The Activity-Specific Balance Confidence Scale outcome measure from 60% on initial PT evaluation to 87.5% today. She is I with HEP and is being D/C from skilled PT services. Provided pt with printed, updated copy of HEP and pt has RTB. Pt reports no further questions or concerns for PT at this time. Electronically signed by: Deonna Gilbert, PT, DPT Please sign and return to therapist. Thank you for your referral.
== END 2021-10-24 08:37 | disposition home or self-care (01) ==
LOC: HO.PT 10:00
PROVIDERS: PCP Internal Medicine; Visit Provider Internal Medicine
DX: R26.81 Unsteadiness on feet (principal)
CPT/HCPCS: 97110; 97162; 97530

== ENCOUNTER 2021-11-25 10:20 | Outpatient (REF) | payer MEDICARE, SELFPAY ==
[2021-11-25 12:18] LABS: Magnesium 1.7 mg/dL (1.6-2.6)
== END 2021-11-25 10:21 | disposition home or self-care (01) ==
LOC: HO.LNP 10:20
PROVIDERS: PCP Internal Medicine; Visit Provider Internal Medicine
DX: E83.42 Hypomagnesemia (principal)
CPT/HCPCS: 83735

== ENCOUNTER 2021-11-27 08:24 | Outpatient (REF) | payer MEDICARE, SELFPAY ==
--- NOTE | ~2021-11-27 | CT_ITS ---
EXAMINATION: CT LUMBAR SPINE WITHOUT CONTRAST CLINICAL INFORMATION: Spinal stenosis. Neurogenic claudication. COMPARISON: No relevant prior imaging. TECHNIQUE: Director Of Ancillary Services images were obtained. CT imaging of the lumbar spine was performed without contrast. Data was reformatted into multiplanar images at the acquisition workstation. This CT examination was performed using dose optimization techniques as appropriate, variously including the following: *Automated exposure control *Adjustment of mA and/or kV according to patient size (this includes techniques or standardized protocols for targeted exams where dose is matched to indication/reason for exam; i.e. extremities or head) *Use of iterative reconstruction technique DLP; 394 mGy-cm FINDINGS: There is slight grade 1 anterolisthesis of L4 on L5 and slight grade 1 retrolisthesis of L1 on L2 and L2 on L3. Vertebral body heights are preserved. There are loss of intervertebral disc height with associated sclerotic degenerative endplate changes and disc osteophyte spurring at L1-L2, L2-L3, and L4-L5. Canal patency is difficult to accurately assess on this examination due to inherent limitations of CT without intrathecal contrast. An asymmetrically bulging disc in conjunction with facet degenerative change at L4-L5 causes moderate mass effect on the left L4 foraminal nerve root. Otherwise no neuroforaminal compromise. Limited visualization of the retroperitoneal anatomy reveals scattered atheromatous calcification involving the abdominal aorta and iliac vessels. Psoas and paraspinal muscle groups are symmetric. CT/CT lumbar spine wo IV con IMPRESSION: There is multilevel degenerative spondylosis of the lumbar spine. A bulging disc in conjunction with facet degenerative change at L4-L5 causes moderate compression of the left L4 foraminal nerve root. Canal patency is not well assessed due to inherent limitations of CT without intrathecal contrast. Grossly no evidence of canal compromise.
== END 2021-11-27 08:25 | disposition home or self-care (01) ==
LOC: HO.CT 08:24
PROVIDERS: PCP Internal Medicine; Visit Provider Internal Medicine
DX: M48.062 Spinal stenosis, lumbar region with neurogenic claudication (principal)
CPT/HCPCS: 72131

== ENCOUNTER → 2021-12-17 08:18 | Outpatient (BNVA) | payer MEDICARE, SELFPAY | PROVIDERS: PCP Internal Medicine; Referring Provider Internal Medicine; Visit Provider Nurse Practitioner | DX: K21.9 Gastro-esophageal reflux disease without esophagitis (principal); K58.2 Mixed irritable bowel syndrome; K52.1 Toxic gastroenteritis and colitis | CPT/HCPCS: 99212 ==

== ENCOUNTER → 2022-02-11 09:26 | Outpatient (BNVA) | payer MEDICARE, SELFPAY | PROVIDERS: PCP Internal Medicine; Referring Provider Internal Medicine; Visit Provider Nurse Practitioner | DX: E83.42 Hypomagnesemia (principal); K52.1 Toxic gastroenteritis and colitis; K21.9 Gastro-esophageal reflux disease without esophagitis; I10 Essential (primary) hypertension; F41.8 Other specified anxiety disorders; Z87.891 Personal history of nicotine dependence; Z90.49 Acquired absence of other specified parts of digestive tract; Z88.6 Allergy status to analgesic agent; Z88.2 Allergy status to sulfonamides; Z88.8 Allergy status to other drugs, medicaments and biological substances | CPT/HCPCS: 99212 ==

== ENCOUNTER 2022-02-24 11:07 | Outpatient (REF) | payer MEDICARE, SELFPAY ==
[2022-02-24 12:15] LABS: Alanine Aminotransferase 17 U/L (0-31); Albumin Level 4.3 g/dL (3.5-5.0); Alkaline Phosphatase 101 U/L (39-117); Aspartate Amino Transferase 21 U/L (5-31); Bilirubin Direct 0.2 mg/dL (0.0-0.5); Bilirubin Total 0.5 mg/dL (0.0-1.0); Cholesterol 175 mg/dL; HDL Cholesterol 77 mg/dL; LDL Cholesterol Calculated 76 mg/dl; Triglycerides 112 mg/dL
[2022-02-24 12:32] LABS: Appearance Urine CLEAR; Color Urine YELLOW; Glucose Urine UA NEG (NEG); Leukocyte Esterase Urine NEG (NEG); Nitrite Urine NEG (NEG); Specific Gravity - Urine 1.015 (1.005-1.025); Urine Blood NEG (NEG); Urine Ketones NEG (NEG); Urine Protein NEG (NEG-TRACE)
[2022-02-24 13:36] LABS: Reflex LDLD? No
== END 2022-02-24 11:08 | disposition home or self-care (01) ==
LOC: HO.LNP 11:07
PROVIDERS: Visit Provider Internal Medicine
DX: R35.0 Frequency of micturition (principal); E78.2 Mixed hyperlipidemia
CPT/HCPCS: 80061; 80076; 81003; 87086

== ENCOUNTER 2022-03-11 11:15 | Outpatient (REF) | payer MEDICARE, SELFPAY ==
[2022-03-11 12:21] LABS: TSH reflex Free T4 1.79 uIU/mL (0.32-4.0)
== END 2022-03-11 11:16 | disposition home or self-care (01) ==
LOC: HO.LNP 11:15
PROVIDERS: Visit Provider Internal Medicine
DX: E83.42 Hypomagnesemia (principal)
CPT/HCPCS: 84443

== ENCOUNTER 2022-04-28 12:28 | Outpatient (REF) | payer MEDICARE, SELFPAY ==
--- NOTE | 2022-04-28 | ECG_ITS ---
Test Reason : HIGH QTC Blood Pressure : / mmHG Vent. Rate : 055 BPM Atrial Rate : 055 BPM P-R Int : 162 ms QRS Dur : 072 ms QT Int : 412 ms P-R-T Axes : 053 000 036 degrees QTc Int : 394 ms Sinus bradycardia Otherwise normal ECG When compared with ECG of 22-MAY-2021 11:19, Nonspecific T wave abnormality no longer evident in Anterior leads QT has shortened Referred By: Thierry Moraes Electronically Signed By:JERSEY WILKES
[2022-04-28 15:01] LABS: Free T4 (Free Thyroxine) 0.84 ng/dL (0.71-1.85); Thyroid Stimulating Hormone 1.41 uIU/mL (0.32-4.0)
[2022-04-28 15:11] LABS: Folate 12.3 ng/mL (> or = 4.0); Vitamin B12 < 146 pg/mL (200-900)
[2022-04-28 15:58] LABS: Alanine Aminotransferase 15 U/L (0-31); Albumin Level 4.2 g/dL (3.5-5.0); Alkaline Phosphatase 89 U/L (39-117); Anion Gap 12 (12-20); Aspartate Amino Transferase 20 U/L (5-31); Bilirubin Total 0.3 mg/dL (0.0-1.0); Blood Urea Nitrogen 13 mg/dL (9-16); C Reactive Protein 0.06 mg/dL (< or = 0.50); Carbon Dioxide 25 mmol/L (22-29); Chloride 101 mmol/L (96-108); Estimated Glomerular Filt Rate > 60; Glucose Random 90 mg/dL (60-115); Potassium 4.2 mmol/L (3.3-5.1); Rheumatoid Factor < 15.0 IU/mL (<15.0); Sodium 134 mmol/L (135-145); Total Protein 6.6 g/dL (6.5-8.0)
[2022-05-01 14:51] LABS: ANA Pattern 2 Nuclear, Nucleolar; ANA Titer 2 1:40 titer; Anti Nuclear Antibody Pattern Nuclear, Homogeneous; Anti Nuclear Antibody Screen POSITIVE (NEGATIVE)
== END 2022-04-28 12:29 | disposition home or self-care (01) ==
LOC: HO.LAB 12:28
PROVIDERS: PCP Internal Medicine; Visit Provider Psychiatry & Neurology Psychiatry
DX: F41.1 Generalized anxiety disorder (principal); M19.90 Unspecified osteoarthritis, unspecified site
CPT/HCPCS: 36415; 80053; 82607; 82746; 84439; 84443; 86038; 86039; 86140; 86431; 93005

== ENCOUNTER 2022-05-01 10:47 | Outpatient (REF) | payer MEDICARE, SELFPAY ==
[2022-05-01 12:01] LABS: Vitamin B12 161 pg/mL (200-900)
== END 2022-05-01 10:48 | disposition home or self-care (01) ==
LOC: HO.LNP 10:47
PROVIDERS: Visit Provider Internal Medicine
DX: E53.8 Deficiency of other specified B group vitamins (principal)
CPT/HCPCS: 82607

== ENCOUNTER 2022-06-10 10:41 | Outpatient (REF) | payer MEDICARE, SELFPAY ==
[2022-06-10 11:06] LABS: Magnesium 1.5 mg/dL (1.6-2.6)
[2022-06-10 11:31] LABS: Vitamin B12 894 pg/mL (200-900)
== END 2022-06-10 10:42 | disposition home or self-care (01) ==
LOC: HO.LNP 10:41
PROVIDERS: Visit Provider Internal Medicine
DX: E83.42 Hypomagnesemia (principal); E53.8 Deficiency of other specified B group vitamins
CPT/HCPCS: 82607; 83735

== ENCOUNTER → 2022-07-24 14:26 | Outpatient (BNVA) | payer MEDICARE, SELFPAY | PROVIDERS: PCP Internal Medicine; Visit Provider Student in an Organized Health Care Education/Training Program | DX: L93.2 Other local lupus erythematosus (principal); Z13.820 Encounter for screening for osteoporosis; R76.8 Other specified abnormal immunological findings in serum; M70.61 Trochanteric bursitis, right hip; M70.62 Trochanteric bursitis, left hip | CPT/HCPCS: 20610; 99202 ==

== ENCOUNTER 2022-07-25 08:08 | Outpatient (REF) | payer MEDICARE, SELFPAY ==
[2022-07-25 08:26] LABS: MANUAL DIFF FLAG NO
[2022-07-25 08:34] LABS: Basophils Percent Auto 0.2 % (0-2); Eosinophils Percent Auto 0.2 % (0-4); Hemoglobin 11.8 g/dl (12.0-16.0); Imm Gran Abs Auto 0.02 X10*3/uL (0.00-0.03); Imm Gran Pct Auto 0.5 % (0.0-0.4); Lymphocytes Absolute Auto 0.9 X10*3/uL (1.2-4.9); Mean Corpuscular HGB Conc 33.7 g/dl (31.0-35.0); Mean Corpuscular Hemoglobin 28.2 pg (27.0-33.0); Mean Corpuscular Volume 83.5 fL (80.0-98.0); Mean Platelet Volume 8.9 fL (9.4-12.3); Monocytes Absolute Auto 0.3 X10*3/uL (0.1-1.2); Monocytes Percent Auto 7.1 % (2-11); Neutrophils Absolute Auto 3.1 x10*3/uL (2.0-8.3); Platelet Count 304 X10*3/uL (160-400); Red Blood Count 4.19 X10*6/uL (4.20-5.50); Red Cell Distribution Width 13.9 % (11.0-16.0); White Blood Count 4.3 X10*3/uL (4.8-10.8)
[2022-07-25 08:55] LABS: Alanine Aminotransferase 18 U/L (0-31); Albumin Level 4.6 g/dL (3.5-5.0); Alkaline Phosphatase 82 U/L (39-117); Anion Gap 17 (12-20); Aspartate Amino Transferase 19 U/L (5-31); Bilirubin Total 0.4 mg/dL (0.0-1.0); Blood Urea Nitrogen 10 mg/dL (9-16); C Reactive Protein 0.09 mg/dL (< or = 0.50); Calcium 9.6 mg/dL (8.4-10.2); Carbon Dioxide 23 mmol/L (22-29); Chloride 100 mmol/L (96-108); Estimated Glomerular Filt Rate > 60; Glucose Random 114 mg/dL (60-115); Potassium 4.1 mmol/L (3.3-5.1); Sodium 136 mmol/L (135-145); Total Protein 7.3 g/dL (6.5-8.0)
[2022-07-25 09:09] LABS: Erythrocyte Sedimentation Rate 12 MM/HR (0-20)
[2022-07-25 14:10] LABS: Appearance Urine Clear; Color Urine Yellow; Glucose Urine UA Negative (Negative); Nitrite Urine Negative (Negative); PH 7.5 (5.0-9.0); Urine Blood Negative (Negative); Urine Ketones Negative (Negative); Urine Protein Trace mg/dL (Neg-Trace)
[2022-07-25 14:11] LABS: Leukocyte Esterase Urine Small (1+) (Negative); UMIC TRIGGER UA YES
[2022-07-25 14:30] LABS: Bacteria Urine Trace (None Seen); Hyaline Casts Urine 0-2 /LPF (0-2); RBC Urine 0-2 /HPF (0-2); WBC Urine 0-5 /HPF (0-5)
[2022-07-28 12:07] LABS: Complement C3 128 mg/dL (83-193)
[2022-07-29 12:26] LABS: Anti DNA DS Antibody <1 IU/mL; Antibody to SS-A Antigen <1.0 NEG AI (<1.0 NEG); Antibody to SS-B Antigen <1.0 NEG AI (<1.0 NEG); SM/Ribonucleoprotein Ab <1.0 NEG AI (<1.0 NEG); Scleroderma 70 Antibody <1.0 NEG AI (<1.0 NEG); Smith Protein <1.0 NEG AI (<1.0 NEG)
[2022-07-29 22:52] LABS: Anti-Centromere B Antibodies <1.0 NEG AI (<1.0 NEG)
[2022-07-30 05:11] LABS: Beta-2 Glycoprotein IgA 6.8 U/mL (<20.0); Beta-2 Glycoprotein IgG <2.0 U/mL (<20.0); Beta-2 Glycoprotein IgM 3.6 U/mL (<20.0)
[2022-07-30 15:52] LABS: Vitamin D 25-OH, D2 <4 ng/mL; Vitamin D 25-OH, D3 34 ng/mL; Vitamin D 25-OH, Total 34 ng/mL (30-100)
[2022-07-30 23:17] LABS: DRVVT 1:1 Mix Interpretation Not Indicated; PTT (LAC) Screen 33 sec (<=40)
[2022-07-31 06:05] LABS: Cardiolipin IgG Ab <2.0 GPL-U/mL; Cardiolipin IgM Ab <2.0 MPL-U/mL
== END 2022-07-25 08:09 | disposition home or self-care (01) ==
LOC: HO.LAB 08:08
PROVIDERS: PCP Internal Medicine; Visit Provider Student in an Organized Health Care Education/Training Program
DX: Z13.21 Encounter for screening for nutritional disorder (principal); R76.8 Other specified abnormal immunological findings in serum
CPT/HCPCS: 36415; 80053; 81001; 82306; 85025; 85597; 85613; 85652; 85730; 86038; 86140; 86146; 86147; 86160; 86225; 86235

== ENCOUNTER 2022-08-15 08:05 | Outpatient (REF) | payer OTHER, MEDICARE, SELFPAY ==
--- NOTE | ~2022-08-15 | MM_ITS ---
EXAMINATION: BONE DENSITOMETRY CLINICAL INDICATION: Encounter for screening for osteoporosis. COMPARISON: Previous BD dated 01/14/2019 and baseline BD dated 12/29/2017. TECHNIQUE: Using a [employer] DXA System (software version: 13.1) manufactured by [employer], dual-energy x-ray absorptiometry was performed of the lumbar spine and left hip. The images are of good technical quality. Summary results are attached. FINDINGS: AP SPINE L1-L4: Current: BMD 0.825 g/cm2, Z-score -1.3, T-score -3.0, osteoporosis, 3.3% decrease from previous, 3.9% increase from baseline (<5% change is not significant). Prior: BMD 0.853 g/cm2. Baseline: BMD 0.794 g/cm2. LEFT FEMUR, NECK: Current: BMD 0.685 g/cm2, Z-score -0.8, T-score -2.5, osteoporosis. Prior: BMD 0.627 g/cm2. Baseline: BMD 0.616 g/cm2. LEFT FEMUR, TOTAL: Current: BMD 0.710 g/cm2, Z-score -0.8, T-score -2.4, osteopenia, 3.2% increase from previous, 4.0% increase from baseline (<5% change is not significant). Prior: BMD 0.688 g/cm2. Baseline: BMD 0.683 g/cm2. IDENTIFIED RISK FACTORS: Rheumatoid arthritis, osteoporosis, height loss, low calcium intake, family history (parental hip fracture), glucocorticoids (chronic), menopause. HISTORY OF FRACTURE: None listed. MEDICATIONS: Calcium supplements or multivitamin, vitamin D. MM/XR DEXA axial skeleton IMPRESSION: 1. DIAGNOSIS: Osteoporosis based on the lowest T-score value of -3.0 in the lumbar spine applying World Health Organization criteria. 2. 10-YEAR FRACTURE RISK PREDICTION, FRAX: According to the guidelines, FRAX calculation should only be performed on patients in the osteopenia bone density category. Therefore, FRAX was not performed on this patient. 3. Treatment Recommendations: NOF guidelines recommend consideration for treatment in postmenopausal women and men age 50 and older presenting with the following: -A hip or vertebral (clinical or morphometric) fracture. -T-score less than or equal to -2.5 at the femoral neck or spine after appropriate evaluation to exclude secondary causes. -Low bone mass at the hip or spine and a 10-year fracture probability by FRAX of greater than or equal to 3% for hip fracture or greater than or equal to 20% for major osteoporotic fracture based on the [place] adapted WHO algorithm. 4. Other Recommendations: All treatment decisions require clinical judgment and consideration of individual patient factors, including patient preferences, comorbidities, previous drug use, risk factors not captured in the FRAX model (e.g. frailty, falls, vitamin D deficiency, increased bone turnover, interval significant decline in bone density) and possible under or overestimation of fracture risk by FRAX. Additional medical evaluation for secondary cause of low bone mineral density may be appropriate. FUTURE SCAN RECOMMENDATION: People with diagnosed cases of osteoporosis or at high risk for fracture should have regular bone mineral density tests. For patients eligible for Medicare, routine testing is allowed once every 2 years. The testing frequency can be increased to one year for patients who have rapidly progressing disease, those who are receiving or discontinuing medical therapy to restore bone mass, or have additional risk factors.
--- NOTE | ~2022-08-15 | MM_ITS ---
EXAMINATION: MM SCREENING DIGITAL BREAST TOMOSYNTHESIS, BILATERAL CLINICAL INFORMATION: Screening. Asymptomatic. The lifetime risk of breast cancer based on the Tyrer-Cuzick Model is 10%. COMPARISON: Mammography: 07/11/2021, 07/05/2020, 01/21/2019 TECHNIQUE: Digital breast tomosynthesis is performed in both the craniocaudal and mediolateral oblique views along with computer-aided detection (CAD). Synthesized 2D images are generated from the tomosynthesis. FINDINGS: There are scattered areas of fibroglandular density (ACR BI-RADS breast composition Category b). There are no significant masses, abnormal calcifications, or other abnormalities. Parenchymal pattern is similar to prior studies. There is no developing density or architectural abnormality. The axilla and skin contours are unremarkable. No significant changes. MM/MM tomosynthesis screening BI IMPRESSION: No mammographic evidence of malignancy. ASSESSMENT: BI-RADS 1: Negative RECOMMENDATION: Routine annual mammography screening. This patient's information was entered into a reminder system with a target due date for their next mammogram.
== END 2022-08-15 08:06 | disposition home or self-care (01) ==
LOC: HO.MAMMO 08:05
PROVIDERS: Visit Provider Internal Medicine
DX: Z12.31 Encounter for screening mammogram for malignant neoplasm of breast (principal); M81.8 Other osteoporosis without current pathological fracture; Z78.0 Asymptomatic menopausal state; Z79.899 Other long term (current) drug therapy
CPT/HCPCS: 77063; 77067; 77080

== ENCOUNTER → 2022-08-18 11:43 | Outpatient (BNVA) | payer OTHER, MEDICARE, SELFPAY | PROVIDERS: PCP Internal Medicine; Visit Provider Psychiatry & Neurology Psychiatry | DX: F41.8 Other specified anxiety disorders (principal); K58.2 Mixed irritable bowel syndrome; I10 Essential (primary) hypertension; R76.8 Other specified abnormal immunological findings in serum | CPT/HCPCS: 90833; 99212 ==

== ENCOUNTER 2022-09-02 10:31 | Outpatient (REF) | payer OTHER, SELFPAY ==
[2022-09-02 10:41] LABS: MANUAL DIFF FLAG NO
[2022-09-02 10:54] LABS: Basophils Absolute Auto 0.1 X10*3/uL (0.0-0.2); Basophils Percent Auto 1.4 % (0-2); Eosinophils Absolute Auto 0.1 X10*3/uL (0.0-0.4); Hematocrit 31.8 % (37.0-47.0); Hemoglobin 10.5 g/dl (12.0-16.0); Imm Gran Abs Auto 0.02 X10*3/uL (0.00-0.03); Imm Gran Pct Auto 0.5 % (0.0-0.4); Lymphocytes Absolute Auto 0.8 X10*3/uL (1.2-4.9); Lymphocytes Percent Auto 20.7 % (20-40); Mean Corpuscular Hemoglobin 28.3 pg (27.0-33.0); Mean Corpuscular Volume 85.7 fL (80.0-98.0); Mean Platelet Volume 8.7 fL (9.4-12.3); Monocytes Absolute Auto 0.4 X10*3/uL (0.1-1.2); Monocytes Percent Auto 9.8 % (2-11); Neutrophils Absolute Auto 2.4 x10*3/uL (2.0-8.3); Neutrophils Percent Auto 64.6 % (45-73); Platelet Count 322 X10*3/uL (160-400); Red Blood Count 3.71 X10*6/uL (4.20-5.50); Red Cell Distribution Width 13.9 % (11.0-16.0); White Blood Count 3.7 X10*3/uL (4.8-10.8)
[2022-09-02 11:34] LABS: Vitamin D 25-OH Total 30.6 ng/mL (>30)
[2022-09-02 11:37] LABS: Alanine Aminotransferase 13 U/L (0-31); Albumin Level 4.1 g/dL (3.5-5.0); Alkaline Phosphatase 80 U/L (39-117); Anion Gap 17 (12-20); Aspartate Amino Transferase 17 U/L (5-31); Blood Urea Nitrogen 9 mg/dL (9-16); Calcium 9.4 mg/dL (8.4-10.2); Carbon Dioxide 24 mmol/L (22-29); Chloride 97 mmol/L (96-108); Cholesterol 157 mg/dL; Estimated Glomerular Filt Rate > 60; Glucose Fasting 91 mg/dL (60-99); HDL Cholesterol 75 mg/dL; LDL Cholesterol Calculated 68 mg/dl; Potassium 4.5 mmol/L (3.3-5.1); Sodium 133 mmol/L (135-145); Total Protein 6.7 g/dL (6.5-8.0); Triglycerides 72 mg/dL
[2022-09-02 11:51] LABS: Bilirubin Total 0.3 mg/dL (0.0-1.0)
== END 2022-09-02 10:32 | disposition home or self-care (01) ==
LOC: HO.LNP 10:31
PROVIDERS: Visit Provider Internal Medicine
DX: I10 Essential (primary) hypertension (principal); M32.9 Systemic lupus erythematosus, unspecified; E55.9 Vitamin D deficiency, unspecified; E78.2 Mixed hyperlipidemia
CPT/HCPCS: 80053; 80061; 81001; 82306; 85025

== ENCOUNTER 2022-09-08 10:42 | Outpatient (REF) | payer OTHER, SELFPAY ==
[2022-09-08 11:06] LABS: Magnesium 1.8 mg/dL (1.6-2.6)
[2022-09-08 11:17] LABS: Appearance Urine Clear; Color Urine Yellow; Glucose Urine UA Negative (Negative); Leukocyte Esterase Urine Small (1+) (Negative); Nitrite Urine Negative (Negative); UMIC TRIGGER UA YES; Urine Blood Negative (Negative); Urine Ketones Negative (Negative); Urine Protein Negative (Neg-Trace)
[2022-09-08 11:29] LABS: Bacteria Urine None Seen (None Seen); Hyaline Casts Urine 0-2 /LPF (0-2); RBC Urine 0-2 /HPF (0-2); WBC Urine 0-5 /HPF (0-5)
== END 2022-09-08 10:43 | disposition home or self-care (01) ==
LOC: HO.LNP 10:42
PROVIDERS: Visit Provider Internal Medicine
DX: I10 Essential (primary) hypertension (principal); E78.2 Mixed hyperlipidemia; E83.42 Hypomagnesemia
CPT/HCPCS: 81001; 83735

== ENCOUNTER → 2022-10-07 07:40 | Outpatient (BNVA) | payer OTHER, MEDICAID, SELFPAY | PROVIDERS: PCP Internal Medicine; Visit Provider Student in an Organized Health Care Education/Training Program | DX: M70.62 Trochanteric bursitis, left hip (principal); M70.61 Trochanteric bursitis, right hip; M32.9 Systemic lupus erythematosus, unspecified; M81.8 Other osteoporosis without current pathological fracture; D64.9 Anemia, unspecified | CPT/HCPCS: 20610; 99212 ==

== ENCOUNTER 2022-10-24 00:17 | Inpatient (IN) | payer OTHER, SELFPAY ==
--- NOTE | ~2022-10-24 | CT_ITS ---
EXAMINATION: CT ABDOMEN AND PELVIS WITHOUT CONTRAST CLINICAL INFORMATION: Left lower quadrant pain, question diverticulitis COMPARISON: None TECHNIQUE: Multidetector volumetric imaging was performed from the superior aspect of the liver through the pubic symphysis. Sagittal and coronal reformatted images were obtained on the technologist's workstation. This CT examination was performed using dose optimization techniques as appropriate, variously including the following: *Automated exposure control *Adjustment of mA and/or kV according to patient size (this includes techniques or standardized protocols for targeted exams where dose is matched to indication/reason for exam; i.e. extremities or head) *Use of iterative reconstruction technique DLP: 506 mGy-cm FINDINGS: LUNG BASES: Mild left basilar groundglass opacity more suggestive of atelectasis. LIVER, GALLBLADDER, AND BILIARY TREE: The liver is normal in size, shape, and attenuation. No focal hepatic lesion or biliary ductal dilatation is identified. Status post cholecystectomy. PANCREAS: Unremarkable. SPLEEN: Unremarkable. ADRENAL GLANDS: Unremarkable. KIDNEYS AND URETERS: The kidneys are normal in size, shape, and attenuation. No hydronephrosis, hydroureter, or calculi seen. Nonspecific mild bilateral perinephric stranding. BLADDER: Unremarkable. GASTROINTESTINAL TRACT: Large hiatal hernia is present. There is sigmoid colon diverticulosis. The small and large bowel are otherwise unremarkable without evidence of obstruction or pericolonic inflammatory change. The appendix is unremarkable. No free fluid or free air is seen. ABDOMINAL WALL: No significant hernia is appreciated. LYMPH NODES: Normal. VASCULAR: Scattered atherosclerotic calcifications. PELVIC VISCERA: Calcified fibroid noted. OSSEOUS STRUCTURES: Degenerative changes are present in the lumbar spine. CT/CT abdomen pelvis wo IV con IMPRESSION: No acute findings identified in the abdomen/pelvis. Sigmoid colon diverticulosis without diverticulitis. Large hiatal hernia.
[2022-10-24 00:47] VITALS: BP 135/97; PULSE 86; RESP 16; TEMP 36.3; O2SAT 97; BMI 28.3
[2022-10-24 03:10] VITALS: BP 156/88; PULSE 77; RESP 17; TEMP 36.6; O2SAT 99
--- NOTE | 2022-10-24 03:17 | ED.ABDPAIN ---
HPI - Abdominal Pain General Chief Complaint: Abdominal Pain Stated Complaint: abd pain Time Seen by Provider: 10/24/22 03:16 Source: patient Mode of arrival: ambulatory Limitations: no limitations History of Present Illness HPI narrative: Patient is 72 years old with history of hypertension diverticulitis CVA lupus been having dysuria and frequency for last 2 weeks called her PCP who without examining patient on the basis of symptoms started on Keflex for possible UTI patient did not get better call the PCP again he started on Bactrim on 10/22 without any labs patient is still complaining of discomfort now she is nauseated having chills vomiting for last 24 hours pain while ambulating. Patient vomited about 3-4 times. Does not have any appetite did not eat much all day today no hematuria no flank pain patient had normal bowel movements no blood in stool Related Data Allergies Allergy/AdvReac Type Severity Reaction Status Date / Time codeine Allergy Intermediate sweats, Verified 08/19/22 06:50 shaky egg Allergy Intermediate Heartburn Verified 08/19/22 06:50 Antihistamines Allergy Intermediate sweats,mikey Uncoded 08/19/22 06:50 y Review of Systems Review of Systems Yes all other systems are reviewed and are negative PMF Past Medical History Medical History (Updated 10/24/22 @ 07:09 by Kb Kerr MD) CVA (cerebral vascular accident) Diverticulitis Hypertension Surgical History (Updated 10/24/22 @ 03:35 by Kb Kerr MD) Hx of cholecystectomy Hx of colonoscopy Family History Family History (Updated 08/15/22 @ 09:50 by Emani Rascon [facility]) Father No problems noted. Mother Hypertension Asthma COPD (chronic obstructive pulmonary disease) Social History Social History Advance Directives: No Advance Directives Information Provided: No Physical Exam ED Vital Signs: Vital Signs - 24 hr 10/24/22 00:47 10/24/22 03:10 10/24/22 06:11 Temperature 97.4 F 97.8 F 98.4 F Pulse Rate 86 77 84 Respiratory Rate 16 17 23 H Blood Pressure 135/97 156/88 H 133/75 Pulse Oximetry 97 99 94 Oxygen Delivery Method Room Air Room Air Room Air BMI result Body Mass Index 28.3 Appearance: Alert. Oriented X3. No acute distress. Eyes: No pallor/ icterus ENT: Pharynx normal. Oral Mucosa moist Neck: Normal inspection. Neck supple. CVS: Normal heart rate and rhythm. Pulses normal. Respiratory: No respiratory distress. Equal air entry bilateral, no wheezing/rales/rhonchi Abdomen: Soft , dip tenderness left lower quadrant with guarding no rebound tenderness. Bowel sounds are present, no mass palpable, no CVA tenderness Skin: Skin warm and dry. Normal skin color. Normal skin turgor. Extremities: No lower extremity edema. No calf tenderness Neuro: Oriented X 3. No motor deficit. No sensory deficit.No cerebellar signs , cranial nerves II-XII intact Medical Decision Making Medical Decision Making [facility] [place] Narrative: Patient's CT scan negative for diverticulitis or any acute inflammation UA is also negative for UTI were lab workup showed sodium of 123 patient not been eating or drinking for last 2- 3 days and still taking a thiazide likely the cause of hypovolemic hypernatremia. Patient received 1 L of normal saline were given a L of normal saline repeat the sodium level if it is normal patient will be discharged. Patient feeling much better after 1 L of normal saline Lab Data [facility] [place] Lab Attestation statement: I reviewed the patient's lab results. Result Diagrams: 10/24/22 03:41 10/24/22 03:41 Labs: Lab Results 10/24/22 10/24/22 10/24/22 Range/Units 03:36 03:41 03:41 WBC 8.4 (4.8-10.8) X10*3/uL RBC 4.27 (4.20-5.50) X10*6/uL Hgb 11.7 L (12.0-16.0) g/dl Hct 35.1 L (37.0-47.0) % MCV 82.2 (80.0-98.0) fL MCH 27.4 (27.0-33.0) pg MCHC 33.3 (31.0-35.0) g/dl RDW 12.7 (11.0-16.0) % Plt Count 302 (160-400) X10*3/uL MPV 8.5 L (9.4-12.3) fL Immature Gran % (Auto) Cancelled Neut % (Auto) Cancelled Lymph % (Auto) Cancelled [place] % (Auto) Cancelled Eos % (Auto) Cancelled Baso % (Auto) Cancelled Lymph # (Auto) Cancelled [place] # (Auto) Cancelled Eos # (Auto) Cancelled Baso # (Auto) Cancelled Abs Immat Gran (auto) Cancelled Absolute Neuts (auto) Cancelled Absolute Nucleated RBC 0.000 (0.0-0.012) X10*3/uL Nucleated RBC % (auto) 0.0 (0.0-0.2) /100WBC Neutrophils % (Manual) 88 H (45-73) % Band Neutrophils % 1 L (3-5) % Lymphocytes % (Manual) 6 L (20-40) % Monocytes % (Manual) 4 (2-11) % Eosinophils % (Manual) 1 (0-4) % Abs Neuts (Manual) 7.5 (2.0-8.3) X10*3/uL Lymphocytes # (Manual) 0.5 L (1.2-4.9) X10*3/uL Monocytes # (Manual) 0.3 (0.1-1.2) X10*3/uL Eosinophils # (Manual) 0.1 (0.0-0.4) X10*3/uL Smudge Cells PRESENT Toxic Vacuolation PRESENT Platelet Estimate SLIGHTLY INCREASED (NORMAL) Plt Morphology Comment NORMAL RBC Morphology NOTED Ovalocytes 1+ (5-14) /OIF Ray Cells 1+ (0-2) /OIF Acanthocytes (Spur) 1+ (0-2) /OIF Sodium 123 L (135-145) mmol/L Potassium 3.7 (3.3-5.1) mmol/L Chloride 92 L (96-108) mmol/L Carbon Dioxide 18 L (22-29) mmol/L Anion Gap 17 (12-20) BUN 14 (9-16) mg/dL Creatinine 0.99 (0.5-1.4) mg/dL Estim Creat Clear Calc 42.8 Estimated GFR 55 Random Glucose 111 (60-115) mg/dL Lactic Acid (0.5-2.0) mmol/L Calcium 8.8 (8.4-10.2) mg/dL Total Bilirubin 0.7 (0.0-1.0) mg/dL AST 18 (5-31) U/L ALT 15 (0-31) U/L Alkaline Phosphatase 101 (39-117) U/L Total Protein 6.9 (6.5-8.0) g/dL Albumin 4.4 (3.5-5.0) g/dL Urine Color Urine Appearance Urine pH (5.0-9.0) Ur Specific [place] (1.005-1.025) Urine Protein (Neg-Trace) mg/dL Urine Glucose (UA) (Negative) mg/dL Urine Ketones (Negative) mg/dL Urine Blood (Negative) Urine Nitrite (Negative) Ur Leukocyte Esterase (Negative) COVID-19 (LAURO) Negative (Negative) COVID-19 Clin Com See Note 10/24/22 10/24/22 Range/Units 03:41 06:18 WBC (4.8-10.8) X10*3/uL RBC (4.20-5.50) X10*6/uL Hgb (12.0-16.0) g/dl Hct (37.0-47.0) % MCV (80.0-98.0) fL MCH (27.0-33.0) pg MCHC (31.0-35.0) g/dl RDW (11.0-16.0) % Plt Count (160-400) X10*3/uL MPV (9.4-12.3) fL Immature Gran % (Auto) Neut % (Auto) Lymph % (Auto) [place]anner % (Auto) Eos % (Auto) Baso % (Auto) Lymph # (Auto) [place] # (Auto) Eos # (Auto) Baso # (Auto) Abs Immat Gran (auto) Absolute Neuts (auto) Absolute Nucleated RBC (0.0-0.012) X10*3/uL Nucleated RBC % (auto) (0.0-0.2) /100WBC Neutrophils % (Manual) (45-73) % Band Neutrophils % (3-5) % Lymphocytes % (Manual) (20-40) % Monocytes % (Manual) (2-11) % Eosinophils % (Manual) (0-4) % Abs Neuts (Manual) (2.0-8.3) X10*3/uL Lymphocytes # (Manual) (1.2-4.9) X10*3/uL Monocytes # (Manual) (0.1-1.2) X10*3/uL Eosinophils # (Manual) (0.0-0.4) X10*3/uL Smudge Cells Toxic Vacuolation Platelet Estimate (NORMAL) Plt Morphology Comment RBC Morphology Ovalocytes /OIF Ray Cells /OIF Acanthocytes (Spur) /OIF Sodium (135-145) mmol/L Potassium (3.3-5.1) mmol/L Chloride (96-108) mmol/L Carbon Dioxide (22-29) mmol/L Anion Gap (12-20) BUN (9-16) mg/dL Creatinine (0.5-1.4) mg/dL Estim Creat Clear Calc Estimated GFR Random Glucose (60-115) mg/dL Lactic Acid 1.3 (0.5-2.0) mmol/L Calcium (8.4-10.2) mg/dL Total Bilirubin (0.0-1.0) mg/dL AST (5-31) U/L ALT (0-31) U/L Alkaline Phosphatase (39-117) U/L Total Protein (6.5-8.0) g/dL Albumin (3.5-5.0) g/dL Urine Color Yellow Urine Appearance Clear Urine pH 6.0 (5.0-9.0) Ur Specific [place] 1.020 (1.005-1.025) Urine Protein Trace (Neg-Trace) mg/dL Urine Glucose (UA) Negative (Negative) mg/dL Urine Ketones 80 (Negative) mg/dL Urine Blood Negative (Negative) Urine Nitrite Negative (Negative) Ur Leukocyte Esterase Negative (Negative) COVID-19 (LAURO) (Negative) COVID-19 Clin Com Medications Administered Generic Name Dose Route Start Last Admin Trade Name Freq PRN Reason Stop Dose Admin Sodium Chloride 1,000 mls @ 999 mls/hr 10/24/22 06:35 10/24/22 06:52 Ns IV 10/24/22 07:35 999 mls/hr .Q1H1M ONE Administration Discontinued Medications Generic Name Dose Route Start Last Admin Trade Name Freq PRN Reason Stop Dose Admin Sodium Chloride 1,000 mls @ 999 mls/hr 10/24/22 03:25 10/24/22 06:52 Ns IV 10/24/22 04:25 Infused .Q1H1M ONE Infusion Morphine Sulfate 2 mg 10/24/22 03:26 10/24/22 03:46 Morphine Sulfate 2 Mg/Ml Cartridge IVPUSH 10/24/22 03:27 2 mg ONCE ONE Administration Protocol Ondansetron HCl 4 mg 10/24/22 03:26 10/24/22 03:46 Ondansetron Hcl 4 Mg/2 Ml Vial IVPUSH 10/24/22 03:27 4 mg ONCE ONE Administration Discharge Plan Discharge Clinical Impression: Acute hyponatremia, Dysuria Patient Disposition: Still a Patient Instructions: Hyponatremia (ED), Dysuria (ED) Additional Instructions: Drink plenty of water Stop taking antibiotic Follow-up with PCP
[2022-10-24] MEDS: 0.9 % Sodium Chloride 1,000 ML 999 ML IV ×2 (03:42→06:52)
[2022-10-24] MEDS: ondansetron HCL 4 MG/2 ML VIAL IVPUSH (03:46)
[2022-10-24] MEDS: Morphine Sulfate 2 MG/ML CARTRIDGE IVPUSH (03:46)
[2022-10-24 03:47] LABS: Hematocrit 35.1 % (37.0-47.0); Hemoglobin 11.7 g/dl (12.0-16.0); Mean Corpuscular HGB Conc 33.3 g/dl (31.0-35.0); Mean Corpuscular Hemoglobin 27.4 pg (27.0-33.0); Mean Corpuscular Volume 82.2 fL (80.0-98.0); Mean Platelet Volume 8.5 fL (9.4-12.3); Platelet Count 302 X10*3/uL (160-400); Red Blood Count 4.27 X10*6/uL (4.20-5.50); Red Cell Distribution Width 12.7 % (11.0-16.0)
[2022-10-24 03:48] LABS: WBC ABN SCTR FOR CBC 1; White Blood Count 8.4 X10*3/uL (4.8-10.8)
[2022-10-24 04:00] LABS: Lactic Acid 1.3 mmol/L (0.5-2.0)
[2022-10-24 04:01] LABS: COVID-19 Test Negative (Negative)
[2022-10-24 04:05] LABS: Alanine Aminotransferase 15 U/L (0-31); Albumin Level 4.4 g/dL (3.5-5.0); Alkaline Phosphatase 101 U/L (39-117); Anion Gap 17 (12-20); Aspartate Amino Transferase 18 U/L (5-31); Bilirubin Total 0.7 mg/dL (0.0-1.0); Blood Urea Nitrogen 14 mg/dL (9-16); Calcium 8.8 mg/dL (8.4-10.2); Carbon Dioxide 18 mmol/L (22-29); Chloride 92 mmol/L (96-108); Creatinine Clr Calc Pharmacy 42.8; Estimated Glomerular Filt Rate 55; Glucose Random 111 mg/dL (60-115); Potassium 3.7 mmol/L (3.3-5.1); Sodium 123 mmol/L (135-145); Total Protein 6.9 g/dL (6.5-8.0)
[2022-10-24 04:11] LABS: Acanthocytes 1+ (0-2) /OIF; Band Neutrophils Percent 1 % (3-5); Burr Cells 1+ (0-2) /OIF; Eosinophils Absolute Manual 0.1 X10*3/uL (0.0-0.4); Eosinophils Percent Manual 1 % (0-4); Lymphocytes Absolute Manual 0.5 X10*3/uL (1.2-4.9); Lymphocytes Percent Manual 6 % (20-40); Monocytes Absolute Manual 0.3 X10*3/uL (0.1-1.2); Monocytes Percent Manual 4 % (2-11); Neutrophils Absolute Manual 7.5 X10*3/uL (2.0-8.3); Neutrophils Percent Manual 88 % (45-73); Ovalocytes 1+ (5-14) /OIF; Platelet Estimate SLIGHTLY INCREASED (NORMAL); Platelet Morphology Comment NORMAL; RBC Morphology NOTED; Smudge Cells PRESENT; Toxic Vacuolation PRESENT
[2022-10-24 06:11] VITALS: BP 133/75; PULSE 84; RESP 23; TEMP 36.9; O2SAT 94
[2022-10-24 06:28] LABS: Appearance Urine Clear; Color Urine Yellow; Glucose Urine UA Negative (Negative); Leukocyte Esterase Urine Negative (Negative); Nitrite Urine Negative (Negative); Urine Blood Negative (Negative); Urine Ketones 80 mg/dL (Negative); Urine Protein Trace mg/dL (Neg-Trace)
--- NOTE | 2022-10-24 07:03 | PC.NURSE ---
report given to KEATON Greco
--- NOTE | 2022-10-24 07:43 | PC.NURSE ---
this development writer assumed care of this pt at 0700. pt awake in bed, iv fluid running. denies pain, vss.
[2022-10-24 08:21] VITALS: BP 129/65; PULSE 78; RESP 18; TEMP 36.7; O2SAT 96
[2022-10-24 09:18] LABS: Anion Gap 14 (12-20); Blood Urea Nitrogen 12 mg/dL (9-16); Calcium 7.6 mg/dL (8.4-10.2); Carbon Dioxide 18 mmol/L (22-29); Chloride 95 mmol/L (96-108); Creatinine Clr Calc Pharmacy 56.5; Estimated Glomerular Filt Rate > 60; Glucose Random 89 mg/dL (60-115); Potassium 4.2 mmol/L (3.3-5.1); Sodium 123 mmol/L (135-145)
--- NOTE | 2022-10-24 11:21 | P.HPHOSP_ITS ---
History of Present Illness Date of Service: 10/24/22 Chief Complaint: N/V, abdominal pain Patient is a 72-year-old female with past medical history significant for HTN, history of diverticulitis, CVA, and lupus who presents to the with N/V, diarrhea, and abdominal pain since last night. Pt had been experiencing dysuria 2 weeks prior and started on Keflex for a suspected UTI. Pt called her PCP only and was not seen. Symptoms did not resolve and pt called back and was switched to Bactrim on 10/22. Pt claims ABX do not ?sit well? with her, and has been having an upset stomach since starting abx treatment. No longer complaining of dysuria. Pt has not been feeling well these past two weeks and not been eating or drinking as much as normal. In the ED labs remarkable for no leukocytosis and sodium low at 123. UA clear for UTI. CT of abdomen and pelvis showed no acute findings and sigmoid colon with diverticulosis without diverticulitis. Patient given 2 L of NS, repeat BMP showed no improvement with sodium still at 123. Patient will be admitted to the hospital for additional treatment for hyponatremia with IVF. Review of Systems Review of Systems: N/V, diarrhea x24 hours Diffuse abdominal pain No hematochezia No dysuria [facility] Medical History (Updated 10/24/22 @ 07:09 by Kb Kerr MD) CVA (cerebral vascular accident) Diverticulitis Hypertension Family History (Updated 08/15/22 @ 09:50 by Emani Rascon [facility]) Father No problems noted. Mother Hypertension Asthma COPD (chronic obstructive pulmonary disease) Surgical History (Updated 10/24/22 @ 03:35 by Kb Kerr MD) Hx of cholecystectomy Hx of colonoscopy Social History Household Members Other:: 1 Housing: House Do you presently have visiting nurse or other home services: No Patient Tobacco Use Status: Former Tobacco user Use of substances other than those prescribed or required for medical reasons: No Have you been hit, kicked, punched, or otherwise hurt by someone within the past year? If so, by whom?: No Do you feel safe in your current relationship?: No Current Relationship Is there a partner from a previous relationship who is making you feel unsafe now?: No Advance Directives: No Advance Directives Information Provided: No Do you have thoughts of harming others: None Do you have a plan to hurt others: No Plan Recently lost weight without trying: No Eating poorly because of decreased appetite: No Nutrition Risks: No Nutritional Risk Patient : No : No Poor oral hygiene: No Meds Allergies Allergy/AdvReac Type Severity Reaction Status Date / Time codeine Allergy Intermediate sweats, Verified 08/19/22 06:50 shaky egg Allergy Intermediate Heartburn Verified 08/19/22 06:50 Antihistamines Allergy Intermediate sweats,mikey Uncoded 08/19/22 06:50 y Active Medications: Current Medications Pharmacy Consult (Consult Rx Perform Med Rec) 1 each MISCELLANE ONCE PRN PRN Reason: Consult order Home Medications Medication Instructions Recorded Confirmed Last Taken Type alendronate 70 mg tablet 1 tab PO QWEEK 10/24/22 10/24/22 Unknown History atorvastatin 40 mg tablet 1 tab PO BEDTIME 10/24/22 10/24/22 Unknown History carvedilol 25 mg tablet 1 tab PO BID 10/24/22 10/24/22 Unknown History chlordiazepoxide HCl 10 mg capsule 1 cap PO BID PRN anxiety 10/24/22 10/24/22 Unknown History duloxetine 20 mg capsule,delayed 1 cap PO DAILY 10/24/22 10/24/22 Unknown History release hydrochlorothiazide 12.5 mg tablet 1 tab PO QAM 10/24/22 10/24/22 Unknown History lisinopril 20 mg tablet 1 tab PO DAILY 10/24/22 10/24/22 Unknown History magnesium chloride 71.5 mg 1 tab PO BID 10/24/22 10/24/22 Unknown History (magnesium chloride) tablet,delayed release (Slow-Mag) omeprazole 40 mg capsule,delayed 1 cap PO DAILY 10/24/22 10/24/22 Unknown History release paroxetine HCl 30 mg tablet 1 tab PO BEDTIME 10/24/22 10/24/22 Unknown History Physical Exam Vital Signs and Narrative: Vital Signs: Last Vital Signs Temp 98.1 F 10/24/22 08:21 Pulse 78 10/24/22 08:21 Resp 18 10/24/22 08:21 BP 129/65 10/24/22 08:21 Pulse Ox 96 10/24/22 08:21 O2 Del Method 10/24/22 08:21 O2 Flow Rate 97 10/24/22 08:21 BMI result Body Mass Index 28.3 Constitutional: Alert, in no acute distress. Mental Status: Oriented to person, place and time. Eyes: Pupils are equal, round, and reactive to light. Ear, Nose, and Throat: Oropharynx clear, mucous membranes moist. Ears and nose without deformities. Trachea midline. Respiratory: Clear to auscultation bilaterally. No wheezing, rales, or rhonchi. Cardiovascular: S1, S2 regular. No murmurs, rubs, or gallops. Gastrointestinal: Abdomen soft, mild lower-abdomen tenderness, non-distended. NOrmal bowel sounds. No CVA tenderness Neurologic: Cranial nerves II-XI are grossly intact. NO focal neurological deficits. Moves all extremities spontaneously. Skin: No rashes of lesions. Musculoskeletal: No cyanosis or clubbing. Extremities: No edema. Psychiatric: Normal mood and affect. Results Labs CBC and Chem 7: 10/24/22 03:41 10/24/22 08:42 Labs: Laboratory Results - last 24 hr 10/24/22 10/24/22 10/24/22 03:36 03:41 03:41 MCV 82.2 MCH 27.4 MCHC 33.3 RDW 12.7 Plt Count 302 MPV 8.5 L Immature Gran % (Auto) Cancelled Neut % (Auto) Cancelled Lymph % (Auto) Cancelled [place] % (Auto) Cancelled Eos % (Auto) Cancelled Baso % (Auto) Cancelled Lymph # (Auto) Cancelled [place] # (Auto) Cancelled Eos # (Auto) Cancelled Baso # (Auto) Cancelled Abs Immat Gran (auto) Cancelled Absolute Neuts (auto) Cancelled Absolute Nucleated RBC 0.000 Nucleated RBC % (auto) 0.0 Neutrophils % (Manual) 88 H Band Neutrophils % 1 L Lymphocytes % (Manual) 6 L Monocytes % (Manual) 4 Eosinophils % (Manual) 1 Abs Neuts (Manual) 7.5 Lymphocytes # (Manual) 0.5 L Monocytes # (Manual) 0.3 Eosinophils # (Manual) 0.1 Smudge Cells PRESENT Toxic Vacuolation PRESENT Platelet Estimate SLIGHTLY INCREASED Plt Morphology Comment NORMAL RBC Morphology NOTED Ovalocytes 1+ (5-14) Ray Cells 1+ (0-2) Acanthocytes (Spur) 1+ (0-2) Anion Gap 17 Estim Creat Clear Calc 42.8 Estimated GFR 55 Random Glucose 111 Lactic Acid Calcium 8.8 Total Bilirubin 0.7 AST 18 ALT 15 Alkaline Phosphatase 101 Total Protein 6.9 Albumin 4.4 Urine Color Urine Appearance Urine pH Ur Specific [place] Urine Protein Urine Glucose (UA) Urine Ketones Urine Blood Urine Nitrite Ur Leukocyte Esterase COVID-19 (LAURO) Negative COVID-19 Clin Com See Note 10/24/22 10/24/22 10/24/22 03:41 06:18 08:42 MCV MCH MCHC RDW Plt Count MPV Immature Gran % (Auto) Neut % (Auto) Lymph % (Auto) [place] % (Auto) Eos % (Auto) Baso % (Auto) Lymph # (Auto) [place] # (Auto) Eos # (Auto) Baso # (Auto) Abs Immat Gran (auto) Absolute Neuts (auto) Absolute Nucleated RBC Nucleated RBC % (auto) Neutrophils % (Manual) Band Neutrophils % Lymphocytes % (Manual) Monocytes % (Manual) Eosinophils % (Manual) Abs Neuts (Manual) Lymphocytes # (Manual) Monocytes # (Manual) Eosinophils # (Manual) Smudge Cells Toxic Vacuolation Platelet Estimate Plt Morphology Comment RBC Morphology Ovalocytes [place] Cells Acanthocytes (Spur) Anion Gap 14 Estim Creat Clear Calc 56.5 Estimated GFR > 60 Random Glucose 89 Lactic Acid 1.3 Calcium 7.6 L D Total Bilirubin AST ALT Alkaline Phosphatase Total Protein Albumin Urine Color Yellow Urine Appearance Clear Urine pH 6.0 Ur Specific [place] 1.020 Urine Protein Trace Urine Glucose (UA) Negative Urine Ketones 80 Urine Blood Negative Urine Nitrite Negative Ur Leukocyte Esterase Negative COVID-19 (LAURO) COVID-19 Clin Com Imaging Radiologist's Impressions: Impressions Abdomen/Pelvis CT 10/24/22 04:14 IMPRESSION: No acute findings identified in the abdomen/pelvis. Sigmoid colon diverticulosis without diverticulitis. Large hiatal hernia. Assessment and Plan (1) Acute hyponatremia: Status: Acute Plan Patient is a 72-year-old female with past medical history significant for HTN, history of diverticulitis, CVA, and lupus who presents to the with N/V, di arrhea, and abdominal pain since last night. Pt's labs were significant for hyponatremia not improved with 2L NS. Patient will be admitted for further workup and treatment of hyponatremia. # Acute Hyponatremia -- likely secondary to hypovolemia d/t reduced po intake over past two weeks, GI losses, and continuing with diuretic -- received 2 L of NS in ED, sodium unchanged at 123 -- IVF, 80cc/h -- recheck sodium at 15:00 -- check urine sodium and osmolality -- consider nephrology consult if sodium does not improve # Nausea, vomiting, diarrhea -- currently resolved # UTI -- UA clean, resolved -- stop abx # Lupus -- continue home meds # HTN -- continue home meds Full code Attending: Dr. Rodriguez DVT Prophylaxis: Lovenox Pt will require at least a two-night hospitalization for sodium correction with IVF. Time Spent With Patient Time: Total time managing care of this patient today ____ minutes. Quality Stroke Does the patient have a stroke diagnosis?: No Reason for No Anti-thrombotic by Day Two: N/A - Med Ordered VTE Prior VTE?: No VTE Risk Level:: Medical - moderate - high VTE Device Contraindication: Treatment Not Indicated VTE Drug Contraindication: N/A - Med Ordered
[2022-10-24 12:03] LABS: Alanine Aminotransferase 13 U/L (0-31); Albumin Level 3.8 g/dL (3.5-5.0); Alkaline Phosphatase 89 U/L (39-117); Aspartate Amino Transferase 17 U/L (5-31); Bilirubin Direct 0.2 mg/dL (0.0-0.5); Bilirubin Total 0.5 mg/dL (0.0-1.0)
--- NOTE | 2022-10-24 12:50 | PHA.MEDREC ---
Pharmacy Consult ? Medication Reconciliation Pharmacy has completed the medication reconciliation. Patient had meds with her. She also mentioned there were some missing that she didnt bring/ cant remember. Used recent [facility] claims as well.
[2022-10-24 13:09] VITALS: BP 147/78; PULSE 90; RESP 20; TEMP 36.1; O2SAT 95
[2022-10-24] MEDS: Enoxaparin Sodium 40 MG/0.4 ML SYRINGE SUBCUT (13:27)
[2022-10-24] MEDS: 0.9 % Sodium Chloride 1,000 ML 80 ML IVCONT (13:58)
[2022-10-24 14:57] LABS: Osmolality Urine 687 mosm/kg (373-1093)
[2022-10-24 15:14] VITALS: BP 149/70; PULSE 71; RESP 18; TEMP 36.7; O2SAT 95
[2022-10-24] MEDS: Omeprazole 40 MG CAPSULE.DR PO (16:11)
[2022-10-24 17:56] LABS: Anion Gap 13 (12-20); Blood Urea Nitrogen 12 mg/dL (9-16); Calcium 8.4 mg/dL (8.4-10.2); Carbon Dioxide 19 mmol/L (22-29); Chloride 98 mmol/L (96-108); Creatinine Clr Calc Pharmacy 51.1; Estimated Glomerular Filt Rate > 60; Glucose Random 96 mg/dL (60-115); Sodium 126 mmol/L (135-145)
[2022-10-24] MEDS: PARoxetine HCL 30 MG TABLET PO (20:31)
[2022-10-24] MEDS: carvediloL 25 MG TABLET PO (20:32)
[2022-10-24] MEDS: Atorvastatin Calcium 40 MG TABLET PO (20:32)
[2022-10-24] MEDS: 0.9 % Sodium Chloride Flush 3 ML SYRINGE IVFLUSH (20:34)
[2022-10-25] VITALS: BP 115/65; PULSE 61; RESP 14; TEMP 36.3; O2SAT 96
[2022-10-25] MEDS: 0.9 % Sodium Chloride 1,000 ML 80 ML IVCONT ×2 (00:46→13:40)
[2022-10-25] MEDS: Omeprazole 40 MG CAPSULE.DR PO (05:20)
[2022-10-25 07:05] LABS: Hematocrit 26.8 % (37.0-47.0); Mean Corpuscular HGB Conc 33.6 g/dl (31.0-35.0); Mean Corpuscular Hemoglobin 28.2 pg (27.0-33.0); Platelet Count 241 X10*3/uL (160-400); Red Blood Count 3.19 X10*6/uL (4.20-5.50); Red Cell Distribution Width 13.1 % (11.0-16.0); White Blood Count 3.9 X10*3/uL (4.8-10.8)
[2022-10-25 08:00] VITALS: BP 146/67; PULSE 62; RESP 16; TEMP 36; O2SAT 96
[2022-10-25 08:10] LABS: Anion Gap 11 (12-20); Blood Urea Nitrogen 10 mg/dL (9-16); Calcium 8.2 mg/dL (8.4-10.2); Carbon Dioxide 21 mmol/L (22-29); Chloride 103 mmol/L (96-108); Creatinine Clr Calc Pharmacy 57.3; Estimated Glomerular Filt Rate > 60; Glucose Random 93 mg/dL (60-115); Potassium 4.1 mmol/L (3.3-5.1); Sodium 131 mmol/L (135-145)
[2022-10-25] MEDS: carvediloL 25 MG TABLET PO ×2 (08:37→20:04)
[2022-10-25] MEDS: DULoxetine HCl 20 MG CAPSULE.DR PO (08:37)
[2022-10-25] MEDS: lisinopriL 20 MG TABLET PO (08:37)
--- NOTE | 2022-10-25 09:13 | P.PNIM_ITS ---
Subjective Subjective Date of Service: 10/25/22 Interval History: Seen in follow up for acute hyponatremia Interval history: Pt feeling better. No abd pain, nausea, vomiting. Tolerating diet. Na improved to 131 Review of Systems General: No fevers, malaise, unintentional weight loss Cardiovascular: No chest pain, palpitations, or leg edema Respiratory: No shortness of breath, wheezing, cough GI: No abdominal pain, nausea, vomiting, diarrhea : No dysuria, hematuria, increased urinary frequency, decreased urinary output MSK: No myalgia, back pain Neuro: No headaches, weakness, paresthesias Skin: No rashes or lesions Physical Exam Vital Signs: Vital Signs: Last Vital Signs Temp 96.8 F 10/25/22 08:00 Pulse 62 10/25/22 08:00 Resp 16 10/25/22 08:00 BP 146/67 H 10/25/22 08:00 Pulse Ox 96 10/25/22 08:00 O2 Del Method 10/25/22 08:00 O2 Flow Rate 97 10/24/22 08:21 BMI result Body Mass Index 28.3 Constitutional - Awake and Alert, No apparent distress Eyes - PERRLA, EOMI Cardiovascular - S1S2, RRR, No edema Respiratory - Normal lung expansion, Normal respiratory effort, No respiratory distress, CTA bilaterally Gastrointestinal - NT / ND; +BS; No rebound or guarding Extremities - no calf tenderness bilaterally, no swelling Skin - Warm/Dry Neurological - Alert & oriented x3 Psychological - Appropriate affect Objective Data Active Medications Acetaminophen (Acetaminophen 325 Mg Tablet) 650 mg PO Q6H PRN PRN Reason: Pain, Mild (Pain Scale 1-3) Atorvastatin Calcium (Atorvastatin Calcium 40 Mg Tablet) 40 mg PO BEDTIME [facility] Last Admin: 10/24/22 20:32 Dose: 40 mg Documented By: BETTY Carvedilol (Carvedilol 25 Mg Tablet) 25 mg PO BID [facility]; Protocol Last Admin: 10/25/22 08:37 Dose: 25 mg Documented By: MARIA EUGENIA Chlordiazepoxide HCl (Chlordiazepoxide Hcl 5 Mg Capsule) 10 mg PO BID PRN PRN Reason: anxiety Duloxetine HCl (Duloxetine Hcl 20 Mg Capsule.) 20 mg PO DAILY [facility] Last Admin: 10/25/22 08:37 Dose: 20 mg Documented By: MARIA EUGENIA Enoxaparin Sodium (Enoxaparin Sodium 40 Mg/0.4 Ml Syringe) 40 mg SUBCUT Q24H [facility] Last Admin: 10/24/22 13:27 Dose: 40 mg Documented By: JUSTIN Sodium Chloride (Ns) 1,000 mls @ 80 mls/hr IVCONT .[id number] [facility] Last Admin: 10/25/22 03:03 Dose: Not Given Documented By: BETTY Non-Admin Reason: IV Running Lisinopril (Lisinopril 20 Mg Tablet) 20 mg PO DAILY [facility]; Protocol Last Admin: 10/25/22 08:37 Dose: 20 mg Documented By: MARIA EUGENIA Omeprazole (Omeprazole 40 Mg Capsule.Dr) 40 mg PO DAILY@0630 [facility] Last Admin: 10/25/22 05:20 Dose: 40 mg Documented By: BETTY Ondansetron HCl (Ondansetron Hcl 4 Mg/2 Ml Vial) 4 mg IVPUSH Q8H PRN PRN Reason: Nausea and Vomiting Paroxetine HCl (Paroxetine Hcl 30 Mg Tablet) 30 mg PO BEDTIME [facility] Last Admin: 10/24/22 20:31 Dose: 30 mg Documented By: BETTY Pharmacy Consult (Consult Rx Perform Med Rec) 1 each MISCELLANE ONCE PRN PRN Reason: Consult order Sodium Chloride (0.9 % Sodium Chloride Flush 3 Ml Syringe) 3 ml IVFLUSH QSHIFT [facility] Last Admin: 10/25/22 08:37 Dose: Not Given Documented By: MARIA EUGENIA Non-Admin Reason: IV Running Labs CBC & Chem 7: 10/25/22 05:25 10/25/22 05:25 Labs: Laboratory Results - last 24 hr 10/24/22 10/24/22 10/24/22 08:42 14:22 14:23 MCV MCH MCHC RDW Plt Count MPV Absolute Nucleated RBC Nucleated RBC % (auto) Anion Gap 14 Estim Creat Clear Calc 56.5 Estimated GFR > 60 Random Glucose 89 Calcium 7.6 L D Total Bilirubin 0.5 Direct Bilirubin 0.2 AST 17 ALT 13 Alkaline Phosphatase 89 Total Protein 6.0 L Albumin 3.8 Urine Osmolality 687 Ur Random Sodium 130.0 10/24/22 10/25/22 10/25/22 17:30 05:25 05:25 MCV 84.0 MCH 28.2 MCHC 33.6 RDW 13.1 Plt Count 241 MPV 9.0 L Absolute Nucleated RBC 0.000 Nucleated RBC % (auto) 0.0 Anion Gap 13 11 L Estim Creat Clear Calc 51.1 57.3 Estimated GFR > 60 > 60 Random Glucose 96 93 Calcium 8.4 D 8.2 L Total Bilirubin Direct Bilirubin AST ALT Alkaline Phosphatase Total Protein Albumin Urine Osmolality Ur Random Sodium Assessment and Plan (1) Acute hyponatremia: Status: Acute Plan Patient is a 72-year-old female with past medical history significant for HTN, history of diverticulitis, CVA, and lupus who presents to the with N/V, diarrhea, and abdominal pain since last night. Pt's labs were significant for hyponatremia not improved with 2L NS. Patient will be admitted for further workup and treatment of hyponatremia. # Acute Hyponatremia -- likely secondary to hypovolemia d/t reduced po intake over past two weeks, GI losses, and continuing with diuretic -- Na improved to 131 -- Continue gentle IVF, 80cc/h -- Urine Na and osmolality normal -- Follow BMP # Nausea, vomiting, diarrhea -- currently resolved # UTI -- UA clean, resolved -- stop abx # Lupus -- continue home meds # HTN -- continue home meds Full code DVT Prophylaxis: Lovenox Pt requires ongoing inpt stay for management of hyponatremia requiring IVF and monitoring of electrolyte levels Quality Stroke Does the patient have a stroke diagnosis?: No Reason for No Anti-thrombotic by Day Two: N/A - Med Ordered VTE Prior VTE?: No VTE Risk Level:: Medical - moderate - high VTE Device Contraindication: Treatment Not Indicated VTE Drug Contraindication: N/A - Med Ordered
[2022-10-25] MEDS: Enoxaparin Sodium 40 MG/0.4 ML SYRINGE SUBCUT (11:35)
--- NOTE | 2022-10-25 14:04 | MHC.CM.PN ---
PT REPORTS SHE LIVES ALONE AND IS INDEPENDENT WITH CARE SHE REPORTS SHE USES A CANE PRN AND NO OTHER DME SHE HAS NO SERVICES PT IS COVID VAX AND BOOSTED PCP: DARCI ROBB DECLINES HCP IMM DELIVERED DCP HOME NO SERVICES PT TO DRIVE HOME
[2022-10-25 15:19] VITALS: BP 131/61; PULSE 64; RESP 18; TEMP 36.8; O2SAT 97
[2022-10-25 15:37] LABS: Hematocrit 27.7 % (37.0-47.0); Hemoglobin 9.1 g/dl (12.0-16.0); Mean Corpuscular HGB Conc 32.9 g/dl (31.0-35.0); Mean Corpuscular Hemoglobin 28.1 pg (27.0-33.0); Mean Corpuscular Volume 85.5 fL (80.0-98.0); Mean Platelet Volume 9.8 fL (9.4-12.3); Platelet Count 184 X10*3/uL (160-400); Red Blood Count 3.24 X10*6/uL (4.20-5.50); Red Cell Distribution Width 13.2 % (11.0-16.0)
[2022-10-25 16:06] LABS: Anion Gap 12 (12-20); Blood Urea Nitrogen 10 mg/dL (9-16); Carbon Dioxide 17 mmol/L (22-29); Chloride 105 mmol/L (96-108); Creatinine Clr Calc Pharmacy 49.8; Estimated Glomerular Filt Rate > 60; Glucose Random 107 mg/dL (60-115); Potassium 4.5 mmol/L (3.3-5.1); Sodium 129 mmol/L (135-145)
[2022-10-25] MEDS: PARoxetine HCL 30 MG TABLET PO (20:04)
[2022-10-25] MEDS: Atorvastatin Calcium 40 MG TABLET PO (20:04)
[2022-10-25] MEDS: 0.9 % Sodium Chloride Flush 3 ML SYRINGE IVFLUSH (20:06)
[2022-10-25] MEDS: chlordiazePOXIDE HCl 5 MG CAPSULE 10 MG PO (20:10)
[2022-10-26] VITALS: BP 146/62; PULSE 69; RESP 16; TEMP 36.3; O2SAT 98
[2022-10-26] MEDS: 0.9 % Sodium Chloride 1,000 ML 80 ML IVCONT (02:20)
[2022-10-26] MEDS: Omeprazole 40 MG CAPSULE.DR PO (05:43)
[2022-10-26 07:50] LABS: Anion Gap 8 (12-20); Blood Urea Nitrogen 11 mg/dL (9-16); Calcium 8.3 mg/dL (8.4-10.2); Carbon Dioxide 22 mmol/L (22-29); Chloride 106 mmol/L (96-108); Creatinine Clr Calc Pharmacy 61.4; Estimated Glomerular Filt Rate > 60; Glucose Random 89 mg/dL (60-115); Potassium 4.3 mmol/L (3.3-5.1); Sodium 132 mmol/L (135-145)
[2022-10-26 08:00] VITALS: BP 191/77; PULSE 61; RESP 18; TEMP 37.1; O2SAT 95
[2022-10-26] MEDS: carvediloL 25 MG TABLET PO (08:17)
[2022-10-26] MEDS: DULoxetine HCl 20 MG CAPSULE.DR PO (08:18)
[2022-10-26] MEDS: lisinopriL 20 MG TABLET PO (08:18)
[2022-10-26 11:28] VITALS: BP 141/63; PULSE 61
--- NOTE | 2022-10-26 12:32 | MHC.CM.PN ---
DP: PT MEDICALLY CLEARED FOR DC HOME, NO SERVICES. RN AWARE. PT HAS OWN TRANSPORTATION.
--- NOTE | 2022-10-26 20:59 | PM.DS ---
DS: Providers Provider Date of Service: 10/26/22 Date of admission: 10/24/22 11:56 Date of discharge: 10/26/22 Primary care physician: Arnulfo Villalba MD Admitting clinician: Suzan Wilde Attending physician on admission: Jeevan Rodriguez Attending physician on discharge: Taz Reynolds Discharging clinician: Hortencia Chang DS: Diagnosis Discharge Diagnosis (1) Acute hyponatremia: Status: Acute DS: Summary Hospital Course Hospital Course: HPI on admission by Wilfrido Rocha 10/24: Patient is a 72-year-old female with past medical history significant for HTN, history of diverticulitis, CVA, and lupus who presents to the with N/V, diarrhea, and abdominal pain since last night. Pt had been experiencing dysuria 2 weeks prior and started on Keflex for a suspected UTI. Pt called her PCP only and was not seen. Symptoms did not resolve and pt called back and was switched to Bactrim on 10/22. Pt claims ABX do not ?sit well? with her, and has been having an upset stomach since starting abx treatment. No longer complaining of dysuria. Pt has not been feeling well these past two weeks and not been eating or drinking as much as normal.? In the ED labs remarkable for no leukocytosis and sodium low at 123.? UA clear for UTI.? CT of abdomen and pelvis showed no acute findings and sigmoid colon with diverticulosis without diverticulitis.? Patient given 2 L of NS, repeat BMP showed no improvement with sodium still at 123.? Patient will be admitted to the hospital for additional treatment for hyponatremia with IVF. Hospital Course: Pt admitted for acute hyponatremia likely secondary to GI losses related to n/v/d following antibiotic use combined with thiazide diuretic use. Hospital course uneventful. HCTZ held on admission and pt treated with IV NS with gradual improvement in sodium. On admission sodium 123, improved to 131 on D2, and 132 on D3. No further episodes vomiting or diarrhea during admission. UA/UC without evidence of infection, pt asymptomatic as well. No abx administered. She was found to be hypertensive on D3, so amlodipine 5mg was added in place of HCTZ in addition to the lisinopril and carvedilol she was continued on. Vitals otherwise reassuring. Given the ongoing mild hyponatremia, will continue holding HCTZ on discharge and will continue on amlodipine on discharge. Sodium level appears stable at this time and pt is tolerating diet. Her paroxetine could also be contributory. Pt should follow up with PCP soon and she is advised to restrict fluids to 48-64 ounces daily. Status at Discharge Functional status at discharge: independent ambulation Overall status at discharge: patient is back to baseline Time Spent with Patient Time attestation: Total time managing care of this patient today ____ minutes. Discharge coordination time: Greater than 30 minutes Quality: Safe Use of Opioids Does Pt have an Active Cancer Diagnosis on the Problem List?: No Quality: Stroke Does the patient have a stroke diagnosis?: No Physical Exam Vital Signs: Vital Signs: Last Vital Signs Temp 98.7 F 10/26/22 08:00 Pulse 61 10/26/22 11:28 Resp 18 10/26/22 08:00 BP 141/63 H 10/26/22 11:28 Pulse Ox 95 10/26/22 08:00 O2 Del Method 10/26/22 08:00 O2 Flow Rate 97 10/24/22 08:21 BMI result Body Mass Index 28.3 Constitutional - Awake and Alert, No apparent distress Eyes - PERRLA, EOMI Cardiovascular - S1S2, RRR, No edema Respiratory - Normal lung expansion, Normal respiratory effort, No respiratory distress, CTA bilaterally Gastrointestinal - NT / ND; +BS; No rebound or guarding Extremities - no calf tenderness bilaterally, no swelling Skin - Warm/Dry Neurological - Alert & oriented x3 Psychological - Appropriate affect DS: Data Data Completed and Pending Labs on day of discharge: Laboratory Results - last 24 hr 10/26/22 06:04 Sodium 132 L Potassium 4.3 Chloride 106 Carbon Dioxide 22 Anion Gap 8 L BUN 11 Creatinine 0.69 Estim Creat Clear Calc 61.4 Estimated GFR > 60 Random Glucose 89 Calcium 8.3 L Discharge Plan Discharge Anticipated Discharge Date/Time: 10/26/22 09:57 Patient Disposition: Home, Self-Care Discharge Diagnosis: Hyponatremia Referrals: Arnulfo Villalba MD [Primary Care Provider] - 1 Week Discharge Medications: New amlodipine 5 mg Tablet 5 mg PO DAILY Qty: 30 0RF Protocol: Hold for SBP< HOLD for SBP < : 90 Continued atorvastatin 40 mg tablet 1 tab PO BEDTIME carvedilol 25 mg tablet 1 tab PO BID lisinopril 20 mg tablet 1 tab PO DAILY alendronate 70 mg tablet 1 tab PO QWEEK omeprazole 40 mg capsule,delayed release(DR/EC) 1 cap PO DAILY paroxetine HCl 30 mg tablet 1 tab PO BEDTIME chlordiazepoxide HCl 10 mg capsule 1 cap PO BID PRN (Reason: anxiety) duloxetine 20 mg capsule,delayed release(DR/EC) 1 cap PO DAILY Slow-Mag 71.5 mg tablet,delayed release (DR/EC) 1 tab PO BID Discontinued hydrochlorothiazide 12.5 mg tablet 1 tab PO QAM Discharge Orders: Discharge Order (Routine); Ordered 10/26/22 Ordered By: Hortencia Chang Diet: Regular diet Activity on Discharge: As tolerated Stand Alone Forms: Patient Portal Discharge page Care Plan Goals: Manage serum sodium levels Health Concerns: Hyponatremia Plan of Treatment: Hyponatremia -Likely caused by combination of hydrochlorothiazide and the GI symptoms caused by antibiotic use -Will discontinue hydrochlorothiazide given the severity of the hyponatremia and instead have you take amlodipine 5mg daily with the lisinopril 20mg and carvedilol 25mg twice daily -Follow up soon with PCP to recheck blood levels -You should also limit fluid intake to 48-64 ounces daily Assessment: As above Patient Instructions: Hyponatremia (ED), Dysuria (ED) Discharge Date/Time: 10/26/22 13:18
== END 2022-10-26 13:18 | disposition home or self-care (01) | DRG 641 ==
LOC: HO.ED 11:34 → HO.EDOVER 12:01 → HO.S3 12:08
PROVIDERS: Admitting Provider Student in an Organized Health Care Education/Training Program; Emergency Provider Internal Medicine; PCP Internal Medicine; Visit Provider Physician Assistant
DX: E87.1 Hypo-osmolality and hyponatremia (principal); M32.9 Systemic lupus erythematosus, unspecified; E86.1 Hypovolemia; Z20.822 Contact with and (suspected) exposure to COVID-19; Z86.73 Personal history of transient ischemic attack (TIA), and cerebral infarction without residual deficits; Z88.5 Allergy status to narcotic agent; Z88.8 Allergy status to other drugs, medicaments and biological substances; Z79.899 Other long term (current) drug therapy
CPT/HCPCS: 36415; 74176; 80048; 80053; 80076; 81003; 83605; 83935; 84300; 85007; 85027; 87635; 96361; 96374; 96375; 99285; J1650; J2270; J2405

== ENCOUNTER 2022-11-10 16:00 | Outpatient (REF) | payer OTHER, SELFPAY ==
[2022-11-10 17:40] LABS: Magnesium 1.6 mg/dL (1.6-2.6); Sodium 136 mmol/L (135-145)
[2022-11-10 18:31] LABS: Vitamin B12 234 pg/mL (200-900)
== END 2022-11-10 16:01 | disposition home or self-care (01) ==
LOC: HO.LNP 16:00
PROVIDERS: PCP Internal Medicine; Visit Provider Internal Medicine
DX: E87.1 Hypo-osmolality and hyponatremia (principal)
CPT/HCPCS: 82607; 83735; 84295

== ENCOUNTER 2022-12-18 11:01 | Outpatient (REF) | payer OTHER, SELFPAY ==
[2022-12-18 12:15] LABS: MANUAL DIFF FLAG NO
[2022-12-18 12:38] LABS: Basophils Percent Auto 0.8 % (0-2); Eosinophils Absolute Auto 0.1 X10*3/uL (0.0-0.4); Eosinophils Percent Auto 2.4 % (0-4); Hematocrit 33.1 % (37.0-47.0); Hemoglobin 10.4 g/dl (12.0-16.0); Imm Gran Abs Auto 0.01 X10*3/uL (0.00-0.03); Imm Gran Pct Auto 0.2 % (0.0-0.4); Lymphocytes Absolute Auto 1.1 X10*3/uL (1.2-4.9); Lymphocytes Percent Auto 22.7 % (20-40); Mean Corpuscular HGB Conc 31.4 g/dl (31.0-35.0); Mean Corpuscular Hemoglobin 26.2 pg (27.0-33.0); Mean Corpuscular Volume 83.4 fL (80.0-98.0); Mean Platelet Volume 9.2 fL (9.4-12.3); Monocytes Absolute Auto 0.4 X10*3/uL (0.1-1.2); Monocytes Percent Auto 7.3 % (2-11); Neutrophils Absolute Auto 3.3 x10*3/uL (2.0-8.3); Neutrophils Percent Auto 66.6 % (45-73); Platelet Count 303 X10*3/uL (160-400); Red Blood Count 3.97 X10*6/uL (4.20-5.50); Red Cell Distribution Width 13.6 % (11.0-16.0); White Blood Count 4.9 X10*3/uL (4.8-10.8)
[2022-12-18 13:11] LABS: Alanine Aminotransferase 13 U/L (0-31); Alkaline Phosphatase 72 U/L (39-117); Anion Gap 14 (12-20); Aspartate Amino Transferase 15 U/L (5-31); Bilirubin Total 0.5 mg/dL (0.0-1.0); Blood Urea Nitrogen 12 mg/dL (9-16); C Reactive Protein < 0.10 mg/dL (< or = 0.50); Calcium 8.7 mg/dL (8.4-10.2); Carbon Dioxide 24 mmol/L (22-29); Chloride 103 mmol/L (96-108); Estimated Glomerular Filt Rate > 60; Glucose Random 92 mg/dL (60-115); Iron 48 mcg/dL (30-160); Magnesium 1.6 mg/dL (1.6-2.6); Percent Iron Saturation 14 % (15-50); Potassium 4.5 mmol/L (3.3-5.1); Sodium 136 mmol/L (135-145); Total Iron Binding Capacity 352 mcg/dL (228-428); Total Protein 6.5 g/dL (6.5-8.0); Unsaturated Iron Binding 304 ug/dL
[2022-12-18 13:26] LABS: Ferritin 14 ng/mL (10-250)
[2022-12-18 13:27] LABS: Erythrocyte Sedimentation Rate 18 MM/HR (0-20)
[2022-12-18 13:39] LABS: Vitamin B12 231 pg/mL (200-900)
[2022-12-18 14:59] LABS: Appearance Urine Clear; Color Urine Yellow; Glucose Urine UA Negative (Negative); Leukocyte Esterase Urine Small (1+) (Negative); Nitrite Urine Negative (Negative); PH 6.5 (5.0-9.0); UMIC TRIGGER UA YES; Urine Blood Negative (Negative); Urine Ketones Negative (Negative); Urine Protein Negative (Neg-Trace)
[2022-12-18 15:19] LABS: Bacteria Urine None Seen (None Seen); Hyaline Casts Urine 0-2 /LPF (0-2); RBC Urine 0-2 /HPF (0-2); WBC Urine 0-5 /HPF (0-5)
[2022-12-18 15:38] LABS: Creatinine Urine 51.53 mg/dL; Total Protein Urine Random < 7 mg/dL (<12)
[2022-12-20 14:58] LABS: Transferrin 324 mg/dL (188-341)
[2022-12-22 08:39] LABS: Complement C3 117 mg/dL (83-193)
[2022-12-22 15:14] LABS: IgA 223 mg/dL (70-320); IgG 766 mg/dL (600-1540); IgM 103 mg/dL (50-300)
[2022-12-22 23:04] LABS: Anti DNA DS Antibody <1 IU/mL; SM/Ribonucleoprotein Ab <1.0 NEG AI (<1.0 NEG); Smith Protein <1.0 NEG AI (<1.0 NEG)
[2022-12-24 11:33] LABS: Prot Elec - Albumin 3.8 g/dL (3.8-4.8); Prot Elec - Alpha1 0.3 g/dL (0.2-0.3); Prot Elec - Alpha2 0.8 g/dL (0.5-0.9); Prot Elec - Beta 1 0.5 g/dL (0.4-0.6); Prot Elec - Beta 2 0.3 g/dL (0.2-0.5); Prot Elec - Gamma 0.8 g/dL (0.8-1.7); Prot Elec - Total Protein 6.5 g/dL (6.1-8.1)
== END 2022-12-18 11:02 | disposition home or self-care (01) ==
LOC: HO.LAB 11:01
PROVIDERS: Student in an Organized Health Care Education/Training Program; PCP Internal Medicine; Visit Provider Psychiatry & Neurology Psychiatry
DX: F41.8 Other specified anxiety disorders (principal); E83.42 Hypomagnesemia; M32.9 Systemic lupus erythematosus, unspecified; D64.9 Anemia, unspecified
CPT/HCPCS: 36415; 80053; 81001; 82607; 82728; 82746; 82784; 83540; 83735; 84156; 84165; 84466; 85025; 85652; 86140; 86160; 86225; 86235; 86334

== ENCOUNTER → 2023-01-08 07:33 | Outpatient (BNVA) | payer OTHER, SELFPAY | PROVIDERS: PCP Internal Medicine; Visit Provider Student in an Organized Health Care Education/Training Program | DX: M32.9 Systemic lupus erythematosus, unspecified (principal); M70.61 Trochanteric bursitis, right hip; M70.62 Trochanteric bursitis, left hip; M81.8 Other osteoporosis without current pathological fracture | CPT/HCPCS: 99212 ==

== ENCOUNTER → 2023-01-29 10:57 | Outpatient (BNVA) | payer OTHER, SELFPAY | PROVIDERS: PCP Internal Medicine; Visit Provider Psychiatry & Neurology Psychiatry | DX: F41.8 Other specified anxiety disorders (principal); D64.9 Anemia, unspecified; K58.2 Mixed irritable bowel syndrome | CPT/HCPCS: 99212 ==

== ENCOUNTER 2023-02-07 10:11 | Emergency (ER) | payer OTHER, SELFPAY ==
--- NOTE | ~2023-02-07 | CT_ITS ---
CT head/brain wo IV con CLINICAL INFORMATION: Reason for Exam fall w/ headstrike COMPARISON: Prior CT 2020 TECHNIQUE: Department standard protocol. This CT examination was performed using dose optimization techniques as appropriate, variously including the following: *Automated exposure control *Adjustment of mA and/or kV according to patient size (this includes techniques or standardized protocols for targeted exams where dose is matched to indication/reason for exam; i.e. extremities or head) *Use of iterative reconstruction technique DLP: 550 mGy-cm FINDINGS: CEREBRAL HEMISPHERES: There is no evidence of intra-axial or extra-axial mass, hemorrhage or acute infarct. BRAIN PARENCHYMA: Normal valdes-white matter differentiation. SUBDURAL SPACE: No bleed. BASAL GANGLIA AND PINEAL GLAND: There is a lacunar infarct left thalamus this is chronic and has not changed. VENTRICLES: Symmetric and normal in size. CEREBELLUM AND BRAINSTEM: No space-occupying mass, hemorrhage or acute infarct. CEREBELLOPONTINE ANGLES: No lesion found. ORBITS: No intraorbital mass. VESSELS: Unremarkable SKULL BASE: Unremarkable INCLUDED SINUSES AT SKULL BASE: Clear SKULL AND SKIN: No fracture or bone lesion found. CT/CT head/brain wo IV con IMPRESSION: * No CT evidence of intracranial space-occupying mass, bleed or infarct. * Old lacunar infarct left thalamus unchanged.
--- NOTE | ~2023-02-07 | CT_ITS ---
EXAMINATION: CT CERVICAL SPINE without contrast CLINICAL INFORMATION: Fall COMPARISON: No prior CT available, TECHNIQUE: Computed axial sagittal and coronal images acquired using department's standard protocol. This CT examination was performed using dose optimization techniques as appropriate, variously including the following: *Automated exposure control *Adjustment of mA and/or kV according to patient size (this includes techniques or standardized protocols for targeted exams where dose is matched to indication/reason for exam; i.e. extremities or head) *Use of iterative reconstruction technique CONTRAST: None DLP: 353 mGy-cm FINDINGS: SKULL BASE: Visualized structures at skull base are normal, Included facial sinuses are clear, CERVICAL VERTEBRAE: Seven cervical vertebrae identified maintaining proper height and alignment, DISCS: Loss of disc height and developed osteophyte from the edges of endplates at C5-C6 suggests advanced degenerative disc disease. When C1-C2: There is no CT evidence of significant osseous narrowing of the central canal or neural foramen. C2-C3: There is no CT evidence of significant osseous narrowing of the central canal or neural foramen. C3-C4: There is no CT evidence of significant osseous narrowing of the central canal or neural foramen. C4-C5: There is no CT evidence of significant osseous narrowing of the central canal or neural foramen. C5-C6: There is no CT evidence of significant osseous narrowing of the central canal or neural foramen. C6-C7: There is no CT evidence of significant osseous narrowing of the central canal or neural foramen. C7-T1: There is no CT evidence of significant osseous narrowing of the central canal or neural foramen. PARAVERTEBRAL SOFT TISSUE: Paravertebral soft tissues unremarkable. CT/CT cervical spine wo IV con IMPRESSION: * No CT evidence of cervical spine fracture. * Loss of disc height and developed osteophyte from the edges of endplates at C5-C6 suggest advanced degenerative disc disease. * No significant osseous a stenosis of central canal or neural foramen.
[2023-02-07 10:24] VITALS: BP 112/41; PULSE 59; RESP 16; TEMP 36.4; O2SAT 96; BMI 28.3
--- NOTE | 2023-02-07 10:58 | ED_ITS ---
HPI - Head Injury General Chief complaint: Head Injury Stated complaint: fall, hit head Time Seen by Provider: 02/07/23 10:23 Source: patient and RN notes reviewed Mode of arrival: ambulatory Limitations: no limitations History of Present Illness HPI Narrative: This is a 72-year-old female, with a past medical history of hypertension, who presents emergency department today for evaluation of head injury which occurred at 7:00 p.m. last night. Patient reports that she was standing up from a chair, when the chair slipped from underneath her, and she fell backwards onto her buttocks and her posterior head struck a wooden door behind her. She denies LOC. She went to bed and woke up this morning and had a right sided head ache and nausea. Denies dizziness, weakness, numbness, tingling, vomiting. Denies neck pain. She took tylenol last night for her symptoms which provided her with minimal relief. She is not on blood thinners. Patient reports that she rubbed her left eye 1-2 weeks ago due to allergies which is why she has some bruising under her left eye. No other complaints or concerns at this time. MD Complaint: head injury and head pain Onset (ago): day(s) Mechanism of Injury: fall Place: home Loss of Consciousness: no Location of injury: occipital Severity: moderate Quality: aching Radiation: none Other Injuries: none Associated symptoms: denies other symptoms Related Data Home Medications Medication Instructions Recorded Confirmed fluticasone propionate 50 1 spray intranasal DAILY PRN 08/08/20 01/29/23 mcg/actuation nasal Allergic Symptoms spray,suspension albuterol sulfate 90 mcg/actuation 2 puff inhalation Q4-6H PRN 10/22/21 01/29/23 aerosol inhaler (Ventolin HFA) acetaminophen 500 mg tablet 1,000 mg PO Q6H PRN 07/24/22 01/29/23 (Tylenol Extra Strength) aspirin 81 mg tablet,delayed 81 mg PO DAILY 07/24/22 01/29/23 release (Adult Low Dose Aspirin) alendronate 70 mg tablet 1 tab PO QWEEK 10/24/22 01/29/23 atorvastatin 40 mg tablet 1 tab PO BEDTIME 10/24/22 01/29/23 carvedilol 25 mg tablet 1 tab PO BID 10/24/22 01/29/23 lisinopril 20 mg tablet 1 tab PO DAILY 10/24/22 01/29/23 magnesium chloride 71.5 mg 1 tab PO BID 10/24/22 01/29/23 (magnesium chloride) tablet,delayed release (Slow-Mag) omeprazole 40 mg capsule,delayed 1 cap PO DAILY 10/24/22 01/29/23 release paroxetine HCl 30 mg tablet 1 tab PO BEDTIME 10/24/22 01/29/23 Previous Rx's Medication Instructions Recorded atorvastatin 40 mg tablet 40 mg PO BEDTIME #30 tabs 05/27/21 magnesium chloride 71.5 mg 71.5 mg PO BID 30 days #60 tabs 10/22/21 (magnesium chloride) tablet,delayed release (Slow-Mag) alendronate 70 mg tablet 70 mg PO QWEEK #12 tabs 10/07/22 amlodipine 5 mg tablet 5 mg PO DAILY #30 tabs 10/26/22 paroxetine HCl 30 mg tablet 30 mg PO .QAM 90 days #90 tabs 11/04/22 buspirone 10 mg tablet 10 mg PO BID #90 tabs 01/29/23 chlordiazepoxide HCl 5 mg capsule 5 mg PO BID PRN anxiety #60 caps 01/29/23 Allergies Allergy/AdvReac Type Severity Reaction Status Date / Time codeine Allergy Intermediate sweats, Verified 11/20/22 09:07 shaky egg Allergy Intermediate Heartburn Verified 11/20/22 09:07 Sulfa (Sulfonamide Allergy Intermediate RASH Verified 11/20/22 09:07 Antibiotics) [SULFA (SULFONAMIDE ANTIBIOTICS)] Antihistamine Allergy Unknown Shakiness Verified 11/20/22 09:07 Codeine Sulfate Allergy Unknown Anaphylaxis Verified 11/20/22 09:07 Antihistamines Allergy Intermediate sweats,mikey Uncoded 11/20/22 09:07 y Review of Systems Review of Systems: Yes all other systems are reviewed and are negative PMFSH Past Medical History Medical History CVA (cerebral vascular accident) Depression with anxiety Diverticulitis GERD (gastroesophageal reflux disease) HTN (hypertension), benign Hypertension Irritable bowel syndrome with both constipation and diarrhea Lupus Positive colorectal cancer screening using Cologuard test Tubular adenoma of colon Vertigo Surgical History History of cholecystectomy Hx of cholecystectomy Hx of colonoscopy Family History Family History Father CAD (coronary artery disease) Maternal Grandmother HTN (hypertension), benign Father No problems noted. 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 Oriented X3. No acute distress. Eyes: Pupils equal, round and reactive to light. EOMI, small, healing ecchymosis noted over the infraorbital region. HEENT: Pharynx normal. Oral pharynx is nonerythematous, nonedematous. No tonsillar hypertrophy. Uvulva is midline. Normocephalic, atraumatic. No hemotympanum. Tenderness to palpation over the right frontal and parietal region with no edema, erythema, increased warmth, abrasions or open wounds. Neck: Normal inspection. Neck supple. No cervical spine tenderness. CVS: Normal heart rate and rhythm. Pulses normal. Respiratory: No respiratory distress. Breath sounds normal. Skin: Skin warm and dry. Normal skin color. Normal skin turgor. No rashes. Extremities: No lower extremity edema. Neuro: Oriented X 3. No motor deficit. No sensory deficit. CN II-XII intact. Upper and lower extremity strength 5/5. Tongue midline. Course Reevaluation(s) Reevaluation #1: CT head and cervical spine return. Head CT shows no mass, bleed, or infarct. There is an old lacunar infarct left thalamus, which is unchanged. Patient is aware of this. cervical spine CT shows loss of disc height and developed osteophyte from the edges of endplates of C5/C6 suggesting advanced degenerative disc disease. no significant osseous stenosis of central canal or neural foramen. Patient's symptoms consistent with a closed head injury. Recommended mental and physical rest over the next several days. Advised to follow-up with her primary care physician. patient understands and agrees with this plan. Patient stable for discharge Time: 12:03 Medical Decision Making Medical Decision Making MDM Narrative: 72-year-old female presenting to the emergency department for evaluation of head injury which occurred last night at 7:00 p.m. VSS Plan: CT head/c-spine ordered. Differential Diagnosis Differential Diagnoses: The differential diagnosis associated with the presentation includes ICH, closed head injury, hematoma Radiology Impression Discussion of test interpretation with radiology: I have reviewed the radiologist's reading. Radiologist Impression: COMPARISON: Prior CT 2020 TECHNIQUE: Department standard protocol. This CT examination was performed using dose optimization techniques as appropriate, variously including the following: *Automated exposure control *Adjustment of mA and/or kV according to patient size (this includes techniques or standardized protocols for targeted exams where dose is matched to indication/reason for exam; i.e. extremities or head) *Use of iterative reconstruction technique DLP: 550 mGy-cm FINDINGS: ? CEREBRAL HEMISPHERES: There is no evidence of intra-axial or extra-axial mass, hemorrhage or acute infarct. BRAIN PARENCHYMA: Normal valdes-white matter differentiation. SUBDURAL SPACE: No bleed. BASAL GANGLIA AND PINEAL GLAND: There is a lacunar infarct left thalamus this is chronic and has not changed. VENTRICLES: Symmetric and normal in size. CEREBELLUM AND BRAINSTEM: No space-occupying mass, hemorrhage or acute infarct. CEREBELLOPONTINE ANGLES: No lesion found. ORBITS: No intraorbital mass. VESSELS: Unremarkable SKULL BASE: Unremarkable INCLUDED SINUSES AT SKULL BASE: Clear SKULL AND SKIN: No fracture or bone lesion found. CT/CT head/brain wo IV con IMPRESSION: ? *? No CT evidence of intracranial space-occupying mass, bleed or infarct. ? *? Old lacunar infarct left thalamus unchanged. ? Dictated By: Andrew Yates MD EXAMINATION: CT CERVICAL SPINE without contrast CLINICAL INFORMATION: Fall COMPARISON: No prior CT available, TECHNIQUE: Computed axial sagittal and coronal images acquired using department's standard protocol. This CT examination was performed using dose optimization techniques as appropriate, variously including the following: *Automated exposure control *Adjustment of mA and/or kV according to patient size (this includes techniques or standardized protocols for targeted exams where dose is matched to indication/reason for exam; i.e. extremities or head) *Use of iterative reconstruction technique CONTRAST: None DLP: 353 mGy-cm FINDINGS:? SKULL BASE: Visualized structures at skull base are normal,? Included facial sinuses are clear,? CERVICAL VERTEBRAE: Seven cervical vertebrae identified maintaining proper height and alignment,? DISCS: Loss of disc height and developed osteophyte from the edges of endplates at C5-C6 suggests advanced degenerative disc disease. When C1-C2: There is no CT evidence of significant osseous narrowing of the central canal or neural foramen. C2-C3: There is no CT evidence of significant osseous narrowing of the central canal or neural foramen. C3-C4: There is no CT evidence of significant osseous narrowing of the central canal or neural foramen. C4-C5: There is no CT evidence of significant osseous narrowing of the central canal or neural foramen. C5-C6: There is no CT evidence of significant osseous narrowing of the central canal or neural foramen. C6-C7: There is no CT evidence of significant osseous narrowing of the central canal or neural foramen. C7-T1: There is no CT evidence of significant osseous narrowing of the central canal or neural foramen. PARAVERTEBRAL SOFT TISSUE: Paravertebral soft tissues unremarkable. ? CT/CT cervical spine wo IV con IMPRESSION: ? *? No CT evidence of cervical spine fracture. ? *? Loss of disc height and developed osteophyte from the edges of endplates at C5-C6 suggest advanced degenerative disc disease. ? *? No significant osseous a stenosis of central canal or neural foramen. Discharge Plan Discharge Clinical Impression: Closed head injury Patient Disposition: Home, Self-Care Instructions: Concussion (ED), Head Injury (ED) Additional Instructions: Your head CT shows an old lacunar infarct of the left thalamus. This is unchanged. You have no new findings on your CT head. Your neck CT shows advanced degenerative disc disease C5-C6. Mental and physical rest can be helpful for relief of headache and nausea. Please follow-up with your primary care physician. If any new or worsening symptoms including but not limited to worsening headache, nausea, vomiting, changes in vision, changes in speech, weakness, numbness/tingling, occur please return for re-evaluation. Prescriptions: No Action paroxetine HCl 30 mg tablet 30 mg PO .QAM 90 Days Qty: 90 1RF atorvastatin 40 mg Tablet 40 mg PO BEDTIME Qty: 30 0RF atorvastatin 40 mg tablet 1 tab PO BEDTIME carvedilol 25 mg tablet 1 tab PO BID lisinopril 20 mg tablet 1 tab PO DAILY alendronate 70 mg tablet 1 tab PO QWEEK omeprazole 40 mg capsule,delayed release(DR/EC) 1 cap PO DAILY paroxetine HCl 30 mg tablet 1 tab PO BEDTIME Slow-Mag 71.5 mg tablet,delayed release (DR/EC) 1 tab PO BID amlodipine 5 mg Tablet 5 mg PO DAILY Qty: 30 0RF Protocol: Hold for SBP< HOLD for SBP < : 90 fluticasone propionate 50 mcg/actuation spray,suspension 1 spray intranasal DAILY PRN (Reason: Allergic Symptoms) albuterol sulfate [Ventolin HFA] 90 mcg/actuation HFA aerosol inhaler 2 puff inhalation Q4-6H PRN Slow-Mag 71.5 mg tablet,delayed release (DR/EC) 71.5 mg PO BID 30 Days Qty: 60 6RF buspirone 10 mg tablet 10 mg PO BID Qty: 90 1RF chlordiazepoxide HCl 5 mg capsule 5 mg PO BID PRN (Reason: anxiety) Qty: 60 3RF aspirin [Adult Low Dose Aspirin] 81 mg tablet,delayed release (DR/EC) 81 mg PO DAILY acetaminophen [Tylenol Extra Strength] 500 mg tablet 1,000 mg PO Q6H PRN alendronate 70 mg tablet 70 mg PO QWEEK Qty: 12 1RF
[2023-02-07 12:03] VITALS: BP 120/57; PULSE 56; RESP 16; TEMP 36.2; O2SAT 95
== END 2023-02-07 12:37 | disposition home or self-care (01) ==
PROVIDERS: Emergency Provider Emergency Medicine; PCP Internal Medicine
DX: S09.90XA Unspecified injury of head, initial encounter (principal); W07.XXXA Fall from chair, initial encounter; M32.9 Systemic lupus erythematosus, unspecified; Z86.73 Personal history of transient ischemic attack (TIA), and cerebral infarction without residual deficits; Y93.89 Activity, other specified; Y92.019 Unspecified place in single-family (private) house as the place of occurrence of the external cause; Y99.9 Unspecified external cause status
CPT/HCPCS: 70450; 72125; 99283; 99284

== ENCOUNTER → 2023-03-11 11:38 | Outpatient (BNVA) | payer OTHER, SELFPAY | PROVIDERS: PCP Internal Medicine; Visit Provider Psychiatry & Neurology Psychiatry | DX: F34.1 Dysthymic disorder (principal); F41.0 Panic disorder [episodic paroxysmal anxiety]; J32.9 Chronic sinusitis, unspecified; E55.9 Vitamin D deficiency, unspecified; I63.12 Cerebral infarction due to embolism of basilar artery; M70.61 Trochanteric bursitis, right hip; M70.62 Trochanteric bursitis, left hip; M32.9 Systemic lupus erythematosus, unspecified; D64.9 Anemia, unspecified; R26.89 Other abnormalities of gait and mobility | CPT/HCPCS: 90833; 99212 ==

== ENCOUNTER 2023-03-17 07:12 | Emergency (ER) | payer OTHER, SELFPAY ==
[2023-03-17 07:17] VITALS: BP 115/63; PULSE 68; RESP 18; TEMP 36.6; O2SAT 97; BMI 28.3
--- NOTE | 2023-03-17 07:48 | ED_ITS ---
HPI - General Adult General Chief complaint: General Medical Stated complaint: Difficulty Swallowing Time Seen by Provider: 03/17/23 07:36 Source: patient Mode of arrival: ambulatory History of Present Illness HPI narrative: 72-year-old female presents with complaints of a swollen uvula that happens to her occasionally, especially when it starts getting hot outside . Patient does state that she was sleeping with her mouth open last night and woke up with some discomfort this morning but denies any drooling, difficulty breathing or swallowing. She denies any choking on water or food and denies any hoarseness of the voice. Related Data Home Medications Medication Instructions Recorded Confirmed fluticasone propionate 50 1 spray intranasal DAILY PRN 08/08/20 03/11/23 mcg/actuation nasal Allergic Symptoms spray,suspension albuterol sulfate 90 mcg/actuation 2 puff inhalation Q4-6H PRN 10/22/21 03/11/23 aerosol inhaler (Ventolin HFA) acetaminophen 500 mg tablet 1,000 mg PO Q6H PRN 07/24/22 03/11/23 (Tylenol Extra Strength) aspirin 81 mg tablet,delayed 81 mg PO DAILY 07/24/22 03/11/23 release (Adult Low Dose Aspirin) alendronate 70 mg tablet 1 tab PO QWEEK 10/24/22 03/11/23 atorvastatin 40 mg tablet 1 tab PO BEDTIME 10/24/22 03/11/23 carvedilol 25 mg tablet 1 tab PO BID 10/24/22 03/11/23 lisinopril 20 mg tablet 1 tab PO DAILY 10/24/22 03/11/23 magnesium chloride 71.5 mg 1 tab PO BID 10/24/22 03/11/23 (magnesium chloride) tablet,delayed release (Slow-Mag) omeprazole 40 mg capsule,delayed 1 cap PO DAILY 10/24/22 03/11/23 release paroxetine HCl 30 mg tablet 1 tab PO BEDTIME 10/24/22 03/11/23 Previous Rx's Medication Instructions Recorded atorvastatin 40 mg tablet 40 mg PO BEDTIME #30 tabs 05/27/21 magnesium chloride 71.5 mg 71.5 mg PO BID 30 days #60 tabs 10/22/21 (magnesium chloride) tablet,delayed release (Slow-Mag) alendronate 70 mg tablet 70 mg PO QWEEK #12 tabs 10/07/22 amlodipine 5 mg tablet 5 mg PO DAILY #30 tabs 10/26/22 paroxetine HCl 30 mg tablet 30 mg PO .QAM 90 days #90 tabs 11/04/22 amitriptyline 10 mg tablet 10 mg PO BEDTIME #30 tabs 03/11/23 chlordiazepoxide HCl 5 mg capsule 5 mg PO TID PRN anxiety #90 caps 03/11/23 buspirone 5 mg tablet 10 mg PO BID 90 days #360 tabs 03/16/23 prednisone 5 mg tablet 5 mg PO DAILY #4 tabs 03/17/23 Allergies Allergy/AdvReac Type Severity Reaction Status Date / Time codeine Allergy Intermediate sweats, Verified 03/17/23 07:25 shaky egg Allergy Intermediate Heartburn Verified 03/17/23 07:25 Sulfa (Sulfonamide Allergy Intermediate RASH Verified 03/17/23 07:25 Antibiotics) [SULFA (SULFONAMIDE ANTIBIOTICS)] Antihistamine Allergy Unknown Shakiness Verified 03/17/23 07:25 Codeine Sulfate Allergy Unknown Anaphylaxis Verified 03/17/23 07:25 Antihistamines Allergy Intermediate sweats,mikey Uncoded 11/20/22 09:07 y Review of Systems Review of Systems: Pertinent positives and negatives as stated in HPI [facility] Past Medical History Source: nursing notes reviewed Medical History CVA (cerebral vascular accident) Depression with anxiety Diverticulitis GERD (gastroesophageal reflux disease) HTN (hypertension), benign Hypertension Irritable bowel syndrome with both constipation and diarrhea Lupus Positive colorectal cancer screening using Cologuard test Tubular adenoma of colon Vertigo Surgical History History of cholecystectomy Hx of cholecystectomy Hx of colonoscopy Family History Family History Father CAD (coronary artery disease) Maternal Grandmother HTN (hypertension), benign Father No problems noted. 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 GENERAL: Well developed, well nourished, in no acute distress. HEAD: Normocephalic/atraumatic EYES: PERRLA, EOMI EARS: Ext canals without abnormality NOSE: Nares patent bilateral OROPHARYNX: no oral lesions noted, posterior pharynx clear, SPECIFICALLY-the uvula is midline, very mild erythema and does not appear to be significantly enlarged, no trismus NECK: Supple, no adenopathy LUNGS: No stridor, Normal breath sounds. No adventitious sounds or accessory muscle use. SpO2<97> CARDIOVASCULAR: Regular rate and rhythm without noted murmurs ABDOMEN: Soft, non-tender, non-distended with bowel sounds. MUSCULOSKELETAL: No tenderness, deformities, or effusions noted on gross inspection. EXTREMITIES: No cyanosis, clubbing or edema. SKIN: Inspection of the skin reveals no rashes NEUROLOGIC: Alert and oriented x 4. Strength and sensation to light touch were grossly intact x 4, cranial nerves 2-12 are grossly intact. Medical Decision Making Medical Decision Making MDM Narrative: 72-year-old female with history and clinical presentation consistent with uvula irritation likely a combination of heat as well as mouth breathing. There is no concerns for stridor/trismus/airway or swallowing compromise. There are no oth er findings to suggest focal deficit as an etiology. Patient is handling all secretions, appears well. Discussed with patient that she will be provided with a referral to follow-up with ENT but in the meantime she can stick to cold drinks, and use a cool mist humidifier at the bedside at night. She will be placed on a very low-dose prednisone for 5 days. She is otherwise stable for discharge to home. Differential Diagnosis Please see the discussion above Discharge Plan Discharge Clinical Impression: Uvular swelling Patient Disposition: Home, Self-Care Instructions: Uvulitis (ED) Additional Instructions: 1. Resume all home medications as prescribed. 2. You have been placed another short course of low-dose prednisone to assist you condition. 3. You have been provided with a referral to follow-up with ENT please call the office this morning, you should stick to cold drinks and use cool mist humidifier at your bedside while sleeping. 4. Follow-up with your primary care provider by calling the office in the morning. Return to the ER for any worsening symptoms. Prescriptions: New prednisone 5 mg tablet 5 mg PO DAILY Qty: 4 0RF No Action paroxetine HCl 30 mg tablet 30 mg PO .QAM 90 Days Qty: 90 1RF buspirone 5 mg tablet 10 mg PO BID 90 Days Qty: 360 0RF Rx Instructions: do not take if it makes you feel unsteady atorvastatin 40 mg Tablet 40 mg PO BEDTIME Qty: 30 0RF atorvastatin 40 mg tablet 1 tab PO BEDTIME carvedilol 25 mg tablet 1 tab PO BID lisinopril 20 mg tablet 1 tab PO DAILY alendronate 70 mg tablet 1 tab PO QWEEK omeprazole 40 mg capsule,delayed release(DR/EC) 1 cap PO DAILY paroxetine HCl 30 mg tablet 1 tab PO BEDTIME Slow-Mag 71.5 mg tablet,delayed release (DR/EC) 1 tab PO BID amlodipine 5 mg Tablet 5 mg PO DAILY Qty: 30 0RF Protocol: Hold for SBP< HOLD for SBP < : 90 fluticasone propionate 50 mcg/actuation spray,suspension 1 spray intranasal DAILY PRN (Reason: Allergic Symptoms) albuterol sulfate [Ventolin HFA] 90 mcg/actuation HFA aerosol inhaler 2 puff inhalation Q4-6H PRN Slow-Mag 71.5 mg tablet,delayed release (DR/EC) 71.5 mg PO BID 30 Days Qty: 60 6RF aspirin [Adult Low Dose Aspirin] 81 mg tablet,delayed release (DR/EC) 81 mg PO DAILY acetaminophen [Tylenol Extra Strength] 500 mg tablet 1,000 mg PO Q6H PRN alendronate 70 mg tablet 70 mg PO QWEEK Qty: 12 1RF amitriptyline 10 mg tablet 10 mg PO BEDTIME Qty: 30 2RF chlordiazepoxide HCl 5 mg capsule 5 mg PO TID PRN (Reason: anxiety) Qty: 90 3RF Referrals: Arnulfo Villalba MD [Primary Care Provider] - Patrick Mills [Physician] -
[2023-03-17] MEDS: predniSONE 5 MG TABLET PO (07:56)
[2023-03-17 07:58] VITALS: BP 134/76; PULSE 61; O2SAT 95
== END 2023-03-17 08:18 | disposition home or self-care (01) ==
PROVIDERS: Emergency Provider Student in an Organized Health Care Education/Training Program; PCP Internal Medicine
DX: K13.79 Other lesions of oral mucosa (principal); Z79.82 Long term (current) use of aspirin; Z79.02 Long term (current) use of antithrombotics/antiplatelets; Z79.899 Other long term (current) drug therapy
CPT/HCPCS: 99283; 99284

== ENCOUNTER 2023-04-04 10:07 | Inpatient (IN) | payer OTHER, SELFPAY ==
[2023-04-04] VITALS (11 sets, daily range): BP systolic 80–136; BP diastolic 45–74; PULSE 64–99; RESP 16–18; TEMP 36–36.6; O2SAT 94–97; BMI 29.7
--- NOTE | ~2023-04-04 | FL_ITS ---
EXAMINATION: FL BARIUM SWALLOW CLINICAL INFORMATION: Hiatal hernia COMPARISON: Previous CT of the abdomen and pelvis October 2022 TECHNIQUE: Barium swallow examination is performed using fluoroscopic evaluation in addition to multiple fluoroscopic spot views. The patient is imaged both upright and prone and using both thick and thin sulfate along with effervescent granules. Barium tablet was also administered Fluoroscopy time: 1.4 minutes minutes DAP: 16 Gycm2 total dose 58 mg. Images: 50 saved fluoroscopic images and 3 overhead images FINDINGS: The swallowing mechanism is normal. No aspiration or penetration. Esophageal motility appears normal with the patient upright. There is a moderate size hiatal hernia. With the patient upright there is question of irregularity or wall thickening along the left side of the hernia. This was not appreciated with supine and prone or decubitus imaging. Compression of this area could not be performed as this is in the lower chest. There is temporary stasis of the barium tablet in the hernia sac. There is abnormal esophageal motility with the patient prone/BROWN for drinking esophagram. There is significant gastroesophageal reflux. There is no evidence of obstruction. FL/FL barium swallow IMPRESSION: Moderate size hiatal hernia. Question irregularity or wall thickening along the left side of the hiatal hernia appreciated with the patient upright. Correlation with endoscopy results recommended. Significant gastroesophageal reflux and abnormal esophageal motility on prone/BROWN drinking esophagram. Temporary stasis of the barium tablet in the hiatal hernia. No evidence of obstruction.
--- NOTE | 2023-04-04 10:40 | ED.GENADULT ---
HPI - General Adult General Chief complaint: GI Bleed Stated complaint: vomiting blood, bleeding vaginallyand from rectum. Time Seen by Provider: 04/04/23 10:40 Source: patient Mode of arrival: ambulatory Limitations: no limitations History of Present Illness HPI narrative: Patient is a 72-year-old female with history of GERD, HTN, IBS, Lupus, rheumatoid arthritis, and tubular adenoma of colon presenting with coffee ground emesis x 3 overnight as well as dark, black stool. She reports periumbilical abdominal pain and nausea since last night. Denies any fevers, denies recent abdominal pain. Also endorses weakness and shortness of breath this morning. Denies any chest pain or cough. Reports prior episode of coffee ground emesis approximately two years prior. Denies hematuria or other urinary symptoms. MD complaint: hematemesis, melena Onset (ago): hour(s) Location: abdomen Radiation: non-radiation Severity: moderate Quality: aching Pain Consistency: constant Associated symptoms: nausea/vomiting Treatments prior to arrival: none Related Data Home Medications Medication Instructions Recorded Confirmed fluticasone propionate 50 1 spray intranasal DAILY PRN 08/08/20 03/11/23 mcg/actuation nasal Allergic Symptoms spray,suspension albuterol sulfate 90 mcg/actuation 2 puff inhalation Q4-6H PRN 10/22/21 03/11/23 aerosol inhaler (Ventolin HFA) acetaminophen 500 mg tablet 1,000 mg PO Q6H PRN 07/24/22 03/11/23 (Tylenol Extra Strength) aspirin 81 mg tablet,delayed 81 mg PO DAILY 07/24/22 03/11/23 release (Adult Low Dose Aspirin) alendronate 70 mg tablet 1 tab PO QWEEK 10/24/22 03/11/23 atorvastatin 40 mg tablet 1 tab PO BEDTIME 10/24/22 03/11/23 carvedilol 25 mg tablet 1 tab PO BID 10/24/22 03/11/23 lisinopril 20 mg tablet 1 tab PO DAILY 10/24/22 03/11/23 magnesium chloride 71.5 mg 1 tab PO BID 10/24/22 03/11/23 (magnesium chloride) tablet,delayed release (Slow-Mag) omeprazole 40 mg capsule,delayed 1 cap PO DAILY 10/24/22 03/11/23 release paroxetine HCl 30 mg tablet 1 tab PO BEDTIME 10/24/22 03/11/23 Previous Rx's Medication Instructions Recorded atorvastatin 40 mg tablet 40 mg PO BEDTIME #30 tabs 05/27/21 magnesium chloride 71.5 mg 71.5 mg PO BID 30 days #60 tabs 10/22/21 (magnesium chloride) tablet,delayed release (Slow-Mag) alendronate 70 mg tablet 70 mg PO QWEEK #12 tabs 10/07/22 amlodipine 5 mg tablet 5 mg PO DAILY #30 tabs 10/26/22 paroxetine HCl 30 mg tablet 30 mg PO .QAM 90 days #90 tabs 11/04/22 amitriptyline 10 mg tablet 10 mg PO BEDTIME #30 tabs 03/11/23 chlordiazepoxide HCl 5 mg capsule 5 mg PO TID PRN anxiety #90 caps 03/11/23 buspirone 5 mg tablet 10 mg PO BID 90 days #360 tabs 03/16/23 prednisone 5 mg tablet 5 mg PO DAILY #4 tabs 03/17/23 Allergies Allergy/AdvReac Type Severity Reaction Status Date / Time codeine Allergy Intermediate sweats, Verified 04/04/23 10:14 shaky egg Allergy Intermediate Heartburn Verified 04/04/23 10:14 Sulfa (Sulfonamide Allergy Intermediate RASH Verified 04/04/23 10:14 Antibiotics) [SULFA (SULFONAMIDE ANTIBIOTICS)] Antihistamine Allergy Unknown Shakiness Verified 04/04/23 10:14 Codeine Sulfate Allergy Unknown Anaphylaxis Verified 04/04/23 10:14 Antihistamines Allergy Intermediate sweats,mikey Uncoded 11/20/22 09:07 y Review of Systems Review of Systems: As per HPI. Yes all other systems are reviewed and are negative Constitutional: Constitutional: Denies chills, Reports fatigue, Denies fever(s) and Reports weakness Eyes: Eyes: Reports no additional eye complaints ENT: Reports system reviewed and no additional complaints, except as documented Cardiovascular: Cardiovascular: Reports no additional cardiovascular complaints, Reports dyspnea and Reports dyspnea on exertion Respiratory: Respiratory: Reports dyspnea and Reports dyspnea on exertion Gastrointestinal: Gastrointestinal: Reports abdominal pain, Reports melena, Reports coffee ground emesis, Reports nausea and Reports vomiting Genitourinary: Genitourinary: Reports no additional female genitourinary complaints Musculoskeletal: Musculoskeletal: Reports no additional musculoskeletal complaints Neurologic: Reports system reviewed and no additional complaints, except as documented and Reports weakness Endocrine: Endocrine: Reports fatigue [facility] Past Medical History Medical History CVA (cerebral vascular accident) Depression with anxiety Diverticulitis GERD (gastroesophageal reflux disease) HTN (hypertension), benign Hypertension Irritable bowel syndrome with both constipation and diarrhea Lupus Positive colorectal cancer screening using Cologuard test Tubular adenoma of colon Vertigo Surgical History History of cholecystectomy Hx of cholecystectomy Hx of colonoscopy Family History Family History Father CAD (coronary artery disease) Maternal Grandmother HTN (hypertension), benign Father No problems noted. 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 Blood pressure low. Heart rate normal. Respiratory rate normal. Temperature normal. Oxygen saturation normal. Const General: cooperative and no acute distress Orientation/consciousness: oriented to person, oriented to place, oriented to time and patient oriented x3 Limitations: no limitations HENMT Head: Yes normocephalic and Yes atraumatic Ears: external ears normal General nose exam: Normal external nose present Face and sinus: Yes face symmetric Mouth: oropharynx normal and moist mucous membranes Throat: Yes uvula midline Eyes Conjunctivae: conjunctival abnormal bilateral pallor Pupils: Equal, round and reactive pupils present Neck Neck: Yes normal visual inspection and Yes supple Resp Effort & Inspection: normal respiratory effort and able to speak in complete sentences Auscultation: clear to auscultation bilaterally Cardio Rate: regular rate Rhythm: regular rhythm Heart sounds: S1 normal heart sound present and S2 normal heart sound present GI Other: Exam chaperoned by Mandy aircraft launch and recovery technician Inspection: Yes normal to inspection Palpation (GI): Soft to palpation, nontender, no guarding and No Rebound tenderness present Auscultation: normoactive bowel sounds Rectal Exam - Female: visual inspection normal, normal sphincter tone and Abnormal stool present Rectal exam abnormal stool - female: black stool General: Yes no CVA tenderness Back/Spine/Pelvis Back: no CVA tenderness Skin General skin exam: elasticity normal, turgor normal and pallor Neuro General: oriented to person, oriented to place, oriented to time, patient oriented x3, moves all extremities, no focal motor deficits and CN's II-XI intact bilaterally Cranial nerves: Yes Equal, round and reactive pupils present Cognition (Neuro): normal cognition Extrem General: Yes full ROM, Yes no pedal edema and Yes no calf tenderness Psych Mental Status: mental status grossly normal Affect: normal affect Thought process: Normal thought process present Course Course Course Narrative: 12:13 OBS positive, patient demonstrating orthostatic intolerance with orthostatic VS, [place] Text to Dr. Alcala, plan to admit. 12:18 Dr. Alcala agrees with admission and Protonix. [place] Text to Dr. Javier who agrees to admission. Medications Administered Discontinued Medications Generic Name Dose Route Start Last Admin Trade Name Freq PRN Reason Stop Dose Admin Pantoprazole Sodium 40 mg 04/04/23 11:34 04/04/23 11:54 Pantoprazole Sodium 40 Mg/10 Ml Vial IVPUSH 04/04/23 11:35 40 mg ONCE ONE Administration Medical Decision Making Medical Decision Making [facility] Narrative: Patient is a 72-year-old female with history of GERD, HTN, IBS, Lupus, rheumatoid arthritis, and tubular adenoma of colon presenting with coffee ground emesis x 3 overnight as well as dark, black stool. On exam patient is awake, A+Ox3, normal neurological exam without focal deficits, pallor to skin and conjunctiva, abdomen is soft, nontender, dark stool noted on rectal exam, no CVA tenderness. Given reported symptoms and physical exam findings, concerned for upper GI bleed, anemia. Unlikely AAA rupture, mesenteric ischemia, perforated viscous, bowel obstruction. Plan: labs including T&S, OBS Differential Diagnosis Differential Diagnoses: The differential diagnosis associated with the presentation includes As above Admission/Observation Consideration of admission/observation: Escalation of care including admission/observation considered Lab Data MDM Lab Attestation statement: I reviewed the patient's lab results. 04/04/23 11:04/04/23 11: Labs: Lab Results 04/04/23 04/04/23 04/04/23 Range/Units 11: 11: 11:01 WBC 7.1 (4.8-10.8) X10*3/uL RBC 3.90 L (4.20-5.50) X10*6/uL Hgb 9.8 L (12.0-16.0) g/dl Hct 31.3 L (37.0-47.0) % MCV 80.3 (80.0-98.0) fL MCH 25.1 L (27.0-33.0) pg MCHC 31.3 (31.0-35.0) g/dl RDW 14.6 (11.0-16.0) % Plt Count 340 (160-400) X10*3/uL MPV 9.1 L (9.4-12.3) fL Immature Gran % (Auto) 0.4 (0.0-0.4) % Neut % (Auto) 78.2 H (45-73) % Lymph % (Auto) 15.3 L (20-40) % [place] % (Auto) 5.1 (2-11) % Eos % (Auto) 0.7 (0-4) % Baso % (Auto) 0.3 (0-2) % Lymph # (Auto) 1.1 L (1.2-4.9) X10*3/uL [place] # (Auto) 0.4 (0.1-1.2) X10*3/uL Eos # (Auto) 0.1 (0.0-0.4) X10*3/uL Baso # (Auto) 0.0 (0.0-0.2) X10*3/uL Abs Immat Gran (auto) 0.03 (0.00-0.03) X10*3/uL Absolute Neuts (auto) 5.5 (2.0-8.3) x10*3/uL Absolute Nucleated RBC 0.000 (0.0-0.012) X10*3/uL Nucleated RBC % (auto) 0.0 (0.0-0.2) /100WBC PT 11.7 (10.0-13.1) SEC INR 1.0 (0.9-1.1) Sodium 142 (135-145) mmol/L Potassium 3.8 (3.3-5.1) mmol/L Chloride 106 (96-108) mmol/L Carbon Dioxide 25 (22-29) mmol/L Anion Gap 15 (12-20) BUN 29 H (9-16) mg/dL Creatinine 1.00 (0.5-1.4) mg/dL Estim Creat Clear Calc 43.4 Estimated GFR 54 Random Glucose 126 H (60-115) mg/dL Calcium 9.1 (8.4-10.2) mg/dL Total Bilirubin 0.5 (0.0-1.0) mg/dL AST 14 (5-31) U/L ALT 10 (0-31) U/L Alkaline Phosphatase 65 (39-117) U/L Total Protein 6.3 L (6.5-8.0) g/dL Albumin 3.8 (3.5-5.0) g/dL Stool Occult Blood (NEGATIVE) 04/04/23 Range/Units 11:33 WBC (4.8-10.8) X10*3/uL RBC (4.20-5.50) X10*6/uL Hgb (12.0-16.0) g/dl Hct (37.0-47.0) % MCV (80.0-98.0) fL MCH (27.0-33.0) pg MCHC (31.0-35.0) g/dl RDW (11.0-16.0) % Plt Count (160-400) X10*3/uL MPV (9.4-12.3) fL Immature Gran % (Auto) (0.0-0.4) % Neut % (Auto) (45-73) % Lymph % (Auto) (20-40) % [place] % (Auto) (2-11) % Eos % (Auto) (0-4) % Baso % (Auto) (0-2) % Lymph # (Auto) (1.2-4.9) X10*3/uL [place] # (Auto) (0.1-1.2) X10*3/uL Eos # (Auto) (0.0-0.4) X10*3/uL Baso # (Auto) (0.0-0.2) X10*3/uL Abs Immat Gran (auto) (0.00-0.03) X10*3/uL Absolute Neuts (auto) (2.0-8.3) x10*3/uL Absolute Nucleated RBC (0.0-0.012) X10*3/uL Nucleated RBC % (auto) (0.0-0.2) /100WBC PT (10.0-13.1) SEC INR (0.9-1.1) Sodium (135-145) mmol/L Potassium (3.3-5.1) mmol/L Chloride (96-108) mmol/L Carbon Dioxide (22-29) mmol/L Anion Gap (12-20) BUN (9-16) mg/dL Creatinine (0.5-1.4) mg/dL Estim Creat Clear Calc Estimated GFR Random Glucose (60-115) mg/dL Calcium (8.4-10.2) mg/dL Total Bilirubin (0.0-1.0) mg/dL AST (5-31) U/L ALT (0-31) U/L Alkaline Phosphatase (39-117) U/L Total Protein (6.5-8.0) g/dL Albumin (3.5-5.0) g/dL Stool Occult Blood POSITIVE (NEGATIVE) External Record Review External record reviewed: Inpatient record, Office record and Outpatient record Discharge Plan Discharge Clinical Impression: Acute blood loss anemia Patient Disposition: Admitted As Inpatient Prescriptions: No Action paroxetine HCl 30 mg tablet 30 mg PO .QAM 90 Days Qty: 90 1RF buspirone 5 mg tablet 10 mg PO BID 90 Days Qty: 360 0RF Rx Instructions: do not take if it makes you feel unsteady atorvastatin 40 mg Tablet 40 mg PO BEDTIME Qty: 30 0RF atorvastatin 40 mg tablet 1 tab PO BEDTIME carvedilol 25 mg tablet 1 tab PO BID lisinopril 20 mg tablet 1 tab PO DAILY alendronate 70 mg tablet 1 tab PO QWEEK omeprazole 40 mg capsule,delayed release(DR/EC) 1 cap PO DAILY paroxetine HCl 30 mg tablet 1 tab PO BEDTIME Slow-Mag 71.5 mg tablet,delayed release (DR/EC) 1 tab PO BID amlodipine 5 mg Tablet 5 mg PO DAILY Qty: 30 0RF Protocol: Hold for SBP< HOLD for SBP < : 90 prednisone 5 mg tablet 5 mg PO DAILY Qty: 4 0RF fluticasone propionate 50 mcg/actuation spray,suspension 1 spray intranasal DAILY PRN (Reason: Allergic Symptoms) albuterol sulfate [Ventolin HFA] 90 mcg/actuation HFA aerosol inhaler 2 puff inhalation Q4-6H PRN Slow-Mag 71.5 mg tablet,delayed release (DR/EC) 71.5 mg PO BID 30 Days Qty: 60 6RF aspirin [Adult Low Dose Aspirin] 81 mg tablet,delayed release (DR/EC) 81 mg PO DAILY acetaminophen [Tylenol Extra Strength] 500 mg tablet 1,000 mg PO Q6H PRN alendronate 70 mg tablet 70 mg PO QWEEK Qty: 12 1RF amitriptyline 10 mg tablet 10 mg PO BEDTIME Qty: 30 2RF chlordiazepoxide HCl 5 mg capsule 5 mg PO TID PRN (Reason: anxiety) Qty: 90 3RF
[2023-04-04 11:07] LABS: MANUAL DIFF FLAG NO
[2023-04-04 11:08] LABS: Basophils Percent Auto 0.3 % (0-2); Eosinophils Absolute Auto 0.1 X10*3/uL (0.0-0.4); Eosinophils Percent Auto 0.7 % (0-4); Hematocrit 31.3 % (37.0-47.0); Hemoglobin 9.8 g/dl (12.0-16.0); Imm Gran Abs Auto 0.03 X10*3/uL (0.00-0.03); Imm Gran Pct Auto 0.4 % (0.0-0.4); Lymphocytes Absolute Auto 1.1 X10*3/uL (1.2-4.9); Lymphocytes Percent Auto 15.3 % (20-40); Mean Corpuscular HGB Conc 31.3 g/dl (31.0-35.0); Mean Corpuscular Hemoglobin 25.1 pg (27.0-33.0); Mean Corpuscular Volume 80.3 fL (80.0-98.0); Mean Platelet Volume 9.1 fL (9.4-12.3); Monocytes Absolute Auto 0.4 X10*3/uL (0.1-1.2); Monocytes Percent Auto 5.1 % (2-11); Neutrophils Absolute Auto 5.5 x10*3/uL (2.0-8.3); Neutrophils Percent Auto 78.2 % (45-73); Platelet Count 340 X10*3/uL (160-400); Red Cell Distribution Width 14.6 % (11.0-16.0); White Blood Count 7.1 X10*3/uL (4.8-10.8)
[2023-04-04 11:13] LABS: Prothrombin Time 11.7 SEC (10.0-13.1)
[2023-04-04 11:21] LABS: Alanine Aminotransferase 10 U/L (0-31); Albumin Level 3.8 g/dL (3.5-5.0); Alkaline Phosphatase 65 U/L (39-117); Anion Gap 15 (12-20); Aspartate Amino Transferase 14 U/L (5-31); Bilirubin Total 0.5 mg/dL (0.0-1.0); Blood Urea Nitrogen 29 mg/dL (9-16); Calcium 9.1 mg/dL (8.4-10.2); Carbon Dioxide 25 mmol/L (22-29); Chloride 106 mmol/L (96-108); Creatinine Clr Calc Pharmacy 43.4; Estimated Glomerular Filt Rate 54; Glucose Random 126 mg/dL (60-115); Potassium 3.8 mmol/L (3.3-5.1); Sodium 142 mmol/L (135-145); Total Protein 6.3 g/dL (6.5-8.0)
--- NOTE | 2023-04-04 11:35 | PC.NURSE ---
Alert and oriented. Arrived from home stating she threw up 3 dark black blood last night. States vomiting stopped in the middle of the night but now she feels weak. observed dark brown blood in stool this morning also. States has 5/10 stomach pain with sob and weakness. States does not have chest pain or headache. positive bowel sounds x 4.
[2023-04-04 11:46] LABS: OBS Int Ctl Valid YES; OBS1 POSITIVE (NEGATIVE)
[2023-04-04] MEDS: Pantoprazole Sodium 40 MG/10 ML VIAL IVPUSH ×2 (11:54→17:13)
[2023-04-04] MEDS: 0.9 % Sodium Chloride 1,000 ML 999 ML IV (13:12)
--- NOTE | 2023-04-04 13:43 | PHA.MEDREC ---
med rec complete, spoke with patient and compared with pharmacy history Pharmacy Consult ? Medication Reconciliation Pharmacy has completed the medication reconciliation.
--- NOTE | 2023-04-04 14:45 | P.HPHOSP_ITS ---
History of Present Illness Date of Service: 04/04/23 Attending physician on admission: Azalea Figueroa Chief Complaint: Vomiting blood Pt is a 72-year-old female with a PMH significant for?IBS, HTN, GERD, lupus, rheumatoid arthritis, hx of diverticulitis, and hx of CVA who presents to the ED with?3 episodes of coffee-ground emesis since last night and 1 episode of melena this morning. Patient states she began experiencing abdominal pain, nausea, and vomiting last night with vomitus that was dark black and gritty. Patient also reports generalized weakness and nausea with standing up. Patient's last episode vomiting was around 03:00 this morning, but when patient had a bowel movement at 10:00 she noted it was dark black in color. Patient states that she has had at least 3 similar episodes of coffee-ground emesis in the past 2 years. No fever, chills. Denies chest pain/pressure, palpitations. Chronic shortness of breath without change. Pt currently denies nausea, vomiting, abdominal pain. In the ED patient was afebrile and hypotensive as low as 80/50. Labs were signi ficant for normocytic anemia of 9.8/31.3 (around baseline), creatinine slightly elevated at 1.00. Coags WNL. Electrolytes WNL. Hepatic function baseline. Stool is positive for occult blood. Pt was treated with IV pantoprazole and IVF. Pt will be admitted to the hospital for treatment and further evaluation of likely upper GI bleed with specialist consultation and likely endoscopy on Thursday. Review of Systems Review of Systems: Three episodes of coffee-ground emesis Melena Nausea Chronic SOB Periumbilical abdominal pain Generalized weakness Yes all other systems are reviewed and are negative [facility] Medical History CVA (cerebral vascular accident) Depression with anxiety Diverticulitis GERD (gastroesophageal reflux disease) HTN (hypertension), benign Hypertension Irritable bowel syndrome with both constipation and diarrhea Lupus Positive colorectal cancer screening using Cologuard test Tubular adenoma of colon Vertigo Family History Father CAD (coronary artery disease) Maternal Grandmother HTN (hypertension), benign Father No problems noted. Mother Hypertension Asthma COPD (chronic obstructive pulmonary disease) Surgical History History of cholecystectomy Hx of cholecystectomy Hx of colonoscopy Social History Household Members: None Household Members Other:: 1 Housing: House Do you presently have visiting nurse or other home services: No Alcohol intake: never Patient Tobacco Use Status: Former Tobacco user Quit Date: 30 years ago Years Smoked: quit greater than 10 years ago Smoked in Last 30 Days: No Use of substances other than those prescribed or required for medical reasons: No Currently Displaying Signs/Symptoms of Drug Intoxication Withdrawal: No Have you been hit, kicked, punched, or otherwise hurt by someone within the past year? 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 Meds Allergies Allergy/AdvReac Type Severity Reaction Status Date / Time codeine Allergy Intermediate sweats, Verified 04/04/23 10:14 shaky egg Allergy Intermediate Heartburn Verified 04/04/23 10:14 Sulfa (Sulfonamide Allergy Intermediate RASH Verified 04/04/23 10:14 Antibiotics) [SULFA (SULFONAMIDE ANTIBIOTICS)] Antihistamine Allergy Unknown Shakiness Verified 04/04/23 10:14 Codeine Sulfate Allergy Unknown Anaphylaxis Verified 04/04/23 10:14 Antihistamines Allergy Intermediate sweats,mikey Uncoded 11/20/22 09:07 y Active Medications: Current Medications Pharmacy Consult (Consult Rx Perform Med Rec) 1 each MISCELLANE ONCE PRN PRN Reason: Consult order Home Medications Medication Instructions Recorded Confirmed Last Taken Type fluticasone propionate 50 1 spray intranasal DAILY PRN 08/08/20 04/04/23 05/21/21 History mcg/actuation nasal Allergic Symptoms spray,suspension albuterol sulfate 90 mcg/actuation 2 puff inhalation Q4-6H PRN 10/22/21 04/04/23 Unknown History aerosol inhaler (Ventolin HFA) Respiratory Distress acetaminophen 500 mg tablet 1,000 mg PO Q6H PRN Pain 07/24/22 04/04/23 Unknown History (Tylenol Extra Strength) aspirin 81 mg tablet,delayed 81 mg PO DAILY 07/24/22 04/04/23 04/04/23 History release (Adult Low Dose Aspirin) alendronate 70 mg tablet 1 tab PO FR@0600 10/24/22 04/04/23 04/03/23 History carvedilol 25 mg tablet 1 tab PO BID 10/24/22 04/04/23 04/04/23 History lisinopril 20 mg tablet 1 tab PO DAILY 10/24/22 04/04/23 04/04/23 History magnesium chloride 71.5 mg 1 tab PO DAILY 10/24/22 04/04/23 04/04/23 History (magnesium chloride) tablet,delayed release (Slow-Mag) omeprazole 40 mg capsule,delayed 1 cap PO BID 10/24/22 04/04/23 04/04/23 History release paroxetine HCl 30 mg tablet 1 tab PO BEDTIME 10/24/22 04/04/23 04/03/23 History buspirone 10 mg tablet 10 mg PO BID 04/04/23 04/04/23 04/04/23 History Physical Exam Vital Signs and Narrative: Vital Signs: Last Vital Signs Temp 97.9 F 04/04/23 10:14 Pulse 88 04/04/23 12:29 Resp 18 04/04/23 12:29 BP 117/58 L 04/04/23 12:29 Pulse Ox 97 04/04/23 12:29 O2 Del Method Room Air 04/04/23 12:29 BMI result Body Mass Index 29.7 Constitutional: Alert, in no acute distress. Mental Status: Oriented to person, place and time. Eyes: Pupils are equal, round, and reactive to light. Ear, Nose, and Throat: Oropharynx clear, mucous membranes moist. Ears and nose without deformities. Trachea midline. Respiratory: Clear to auscultation bilaterally. No wheezing, rales, or rhonchi. Cardiovascular: S1, S2 regular. No murmurs, rubs, or gallops. Gastrointestinal: Abdomen soft, non-distended, with mild left lower quardarnt tenderness. Normal bowel sounds. Neurologic: Cranial nerves II-XII are grossly intact bilaterally. No focal neurological deficits. Moves all extremities spontaneously. Skin: No rashes or lesions noted. Musculoskeletal: No cyanosis or clubbing. Extremities: No edema. Psychiatric: Normal mood and affect. Results Labs 04/04/23 11:01 04/04/23 11:01 Labs: Laboratory Results - last 24 hr 04/04/23 04/04/23 04/04/23 11:01 11:01 11:01 MCV 80.3 MCH 25.1 L MCHC 31.3 RDW 14.6 Plt Count 340 MPV 9.1 L Immature Gran % (Auto) 0.4 Neut % (Auto) 78.2 H Lymph % (Auto) 15.3 L [place] % (Auto) 5.1 Eos % (Auto) 0.7 Baso % (Auto) 0.3 Lymph # (Auto) 1.1 L [place] # (Auto) 0.4 Eos # (Auto) 0.1 Baso # (Auto) 0.0 Abs Immat Gran (auto) 0.03 Absolute Neuts (auto) 5.5 Absolute Nucleated RBC 0.000 Nucleated RBC % (auto) 0.0 PT 11.7 INR 1.0 Anion Gap 15 Estim Creat Clear Calc 43.4 Estimated GFR 54 Random Glucose 126 H Calcium 9.1 Total Bilirubin 0.5 AST 14 ALT 10 Alkaline Phosphatase 65 Total Protein 6.3 L Albumin 3.8 Stool Occult Blood Blood Type Antibody Screen 04/04/23 04/04/23 11:33 11:33 MCV MCH MCHC RDW Plt Count MPV Immature Gran % (Auto) Neut % (Auto) Lymph % (Auto) [place] % (Auto) Eos % (Auto) Baso % (Auto) Lymph # (Auto) [place] # (Auto) Eos # (Auto) Baso # (Auto) Abs Immat Gran (auto) Absolute Neuts (auto) Absolute Nucleated RBC Nucleated RBC % (auto) PT INR Anion Gap Estim Creat Clear Calc Estimated GFR Random Glucose Calcium Total Bilirubin AST ALT Alkaline Phosphatase Total Protein Albumin Stool Occult Blood POSITIVE Blood Type B Positive Antibody Screen NEGATIVE Assessment and Plan (1) Acute blood loss anemia: Status: Acute Plan Pt is a 72-year-old female with a PMH significant for?IBS, HTN, GERD, lupus, rheumatoid arthritis, hx of diverticulitis, and hx of CVA who presents to the ED with?3 episodes of coffee-ground emesis since last night and 1 episode of melena this morning. Pt will be admitted to the hospital for treatment and further evaluation of likely upper GI bleed with specialist consultation and likely endoscopy on Thursday. Likely upper GI bleed Patient with reported coffee-ground emesis x3 episodes since last night, 1 episode of melena this morning Patient with stable normocytic anemia 9.8/31.3, around her baseline Protonix IV b.i.d. Hold aspirin Patient will be made NPO Thursday night at midnight in anticipation of endoscopy on Thursday morning GI consult Pneumatic boots for DVT prophylaxis Follow CBC Orthostatic hypotension Patient's orthostatics were positive with systolic drop of 27 and diastolic dropped of 14 Patient received IVF in ED Recheck orthostatics tomorrow HTN Hold amlodipine, lisinopril for now, BP a little soft Resume antihypertensives as necessary Asthma Continue home inhaler Anxiety Continue home meds DNR/DNI Attending:?Dr. Figueroa DVT Prophylaxis: Pneumatic Boots Pt will require a hospitalization of at least two nights for treatment of?likely upper GI bleed with specialist consultation and likely endoscopy on Thursday. Time Spent With Patient Time: Total time managing care of this patient today ____ minutes. Quality Stroke Does the patient have a stroke diagnosis?: No VTE Prior VTE?: No VTE Risk Level:: Medical - moderate - high VTE Device Contraindication: N/A - Device Ordered VTE Drug Contraindication: Treatment Not Indicated
--- NOTE | 2023-04-04 16:09 | PC.NURSE ---
report called to unit that patient will be transferred to. Tolerating sips of water well
--- NOTE | 2023-04-04 17:08 | PC.NURSE ---
ok to adm protonix as ordered per pharmacist
[2023-04-04] MEDS: 0.9 % Sodium Chloride Flush 3 ML SYRINGE IVFLUSH ×2 (17:13→23:41)
[2023-04-04] MEDS: carvediloL 25 MG TABLET PO (20:33)
[2023-04-04] MEDS: Amitriptyline HCl 10 MG TABLET PO (20:33)
[2023-04-04] MEDS: PARoxetine HCL 30 MG TABLET PO (20:33)
[2023-04-04] MEDS: Atorvastatin Calcium 40 MG TABLET PO (20:33)
[2023-04-04] MEDS: busPIRone HCl 10 MG TABLET PO (20:33)
--- NOTE | 2023-04-04 22:55 | PC.NURSE ---
orthostatic vitals signs taken,documented and reported to Dr. Chow
[2023-04-05] VITALS (17 sets, daily range): BP systolic 92–133; BP diastolic 52–89; PULSE 57–81; RESP 14–20; TEMP 35.7–37.1; O2SAT 95–96
[2023-04-05] MEDS: Pantoprazole Sodium 40 MG/10 ML VIAL IVPUSH ×2 (06:06→16:55)
[2023-04-05 06:22] LABS: Hematocrit 26.1 % (37.0-47.0); Hemoglobin 8.2 g/dl (12.0-16.0); Mean Corpuscular HGB Conc 31.4 g/dl (31.0-35.0); Mean Corpuscular Hemoglobin 25.9 pg (27.0-33.0); Mean Corpuscular Volume 82.6 fL (80.0-98.0); Mean Platelet Volume 9.4 fL (9.4-12.3); Platelet Count 261 X10*3/uL (160-400); Red Blood Count 3.16 X10*6/uL (4.20-5.50); Red Cell Distribution Width 14.8 % (11.0-16.0); White Blood Count 5.2 X10*3/uL (4.8-10.8)
--- NOTE | 2023-04-05 06:24 | PM.EVENT ---
Event Note Date of Service: 04/05/23 Event Note: Patient with acetic vitals remain positive, will start her on IV fluids Time Spent With Patient Time: Total time managing care of this patient today ____ minutes.
[2023-04-05] MEDS: Lactated Ringers 1,000 ML 100 ML IVCONT ×2 (06:33→20:21)
[2023-04-05 06:57] LABS: Anion Gap 13 (12-20); Blood Urea Nitrogen 23 mg/dL (9-16); Calcium 8.6 mg/dL (8.4-10.2); Carbon Dioxide 24 mmol/L (22-29); Chloride 107 mmol/L (96-108); Creatinine Clr Calc Pharmacy 43.9; Estimated Glomerular Filt Rate 55; Glucose Random 96 mg/dL (60-115); Potassium 3.5 mmol/L (3.3-5.1); Sodium 140 mmol/L (135-145)
[2023-04-05] MEDS: carvediloL 25 MG TABLET PO (08:54)
[2023-04-05] MEDS: busPIRone HCl 10 MG TABLET PO ×2 (08:54→20:20)
[2023-04-05] MEDS: 0.9 % Sodium Chloride Flush 3 ML SYRINGE IVFLUSH ×2 (08:54→16:55)
--- NOTE | 2023-04-05 10:27 | P.PNIM_ITS ---
Subjective Subjective Date of Service: 04/05/23 Interval History: seen and evaluated this morning reports feeling well, no more hematemesis overnight BP dropped this morning but improved with IVF Hb dropped to 8.2 no other overnight events Review of Systems Review of Systems: Yes all other systems are reviewed and are negative Physical Exam Vital Signs: Vital Signs: Last Vital Signs Temp 98.7 F 04/05/23 07:51 Pulse 65 04/05/23 07:51 Resp 16 04/05/23 07:51 BP 127/60 04/05/23 07:51 Pulse Ox 95 04/05/23 07:51 O2 Del Method Room Air 04/05/23 07:51 BMI result Body Mass Index 29.7 Const: Other: Constitutional : Awake, interactive, not in distress Neck : Normal inspection, Supple Cardiovascular : RRR, no JVP, no lower extremity edema Respiratory : good bilateral air entry, no crackles, wheezes or rhonchi Gastrointestinal: soft, lax, Normal bowel sounds, Non tender Skin : Warm, Dry Neurological : Alert & oriented x3, No focal deficit Objective Data Active Medications Acetaminophen (Acetaminophen 325 Mg Tablet) 650 mg PO Q6H PRN PRN Reason: Pain, Mild (Pain Scale 1-3) Albuterol Sulfate (Albuterol Sulfate 90 Mcg 8 Gm Inhaler) 2 puff INHALE Q4H PRN PRN Reason: Respiratory Distress Amitriptyline HCl (Amitriptyline Hcl 10 Mg Tablet) 10 mg PO BEDTIME [facility] Last Admin: 04/04/23 20:33 Dose: 10 mg Documented By: CHARITY Atorvastatin Calcium (Atorvastatin Calcium 40 Mg Tablet) 40 mg PO BEDTIME [facility] Last Admin: 04/04/23 20:33 Dose: 40 mg Documented By: CHARITY Buspirone HCl (Buspirone Hcl 10 Mg Tablet) 10 mg PO BID [facility] Last Admin: 04/05/23 08:54 Dose: 10 mg Documented By: ALEX Carvedilol (Carvedilol 25 Mg Tablet) 25 mg PO BID [facility]; Protocol Last Admin: 04/05/23 08:54 Dose: 25 mg Documented By: ALEX Chlordiazepoxide HCl (Chlordiazepoxide Hcl 5 Mg Capsule) 5 mg PO TID PRN PRN Reason: anxiety Docusate Sodium (Docusate Sodium 100 Mg Capsule) 100 mg PO DAILY PRN PRN Reason: Constipation Fluticasone Propionate (Fluticasone Propionate Nasal 16 Gm [place]) 1 spray NOSTRIL-B DAILY PRN PRN Reason: Allergic Symptoms Lactated Ringer's (Lr) 1,000 mls @ 100 mls/hr IVCONT .Q10H [facility] Last Admin: 04/05/23 06:33 Dose: 100 mls/hr Documented By: LULU Ondansetron HCl (Ondansetron Hcl 4 Mg/2 Ml Vial) 4 mg IVPUSH Q8H PRN PRN Reason: Nausea and Vomiting Pantoprazole Sodium (Pantoprazole Sodium 40 Mg/10 Ml Vial) 40 mg IVPUSH BID @0630,1630 [facility] Last Admin: 04/05/23 06:06 Dose: 40 mg Documented By: CHARITY Paroxetine HCl (Paroxetine Hcl 30 Mg Tablet) 30 mg PO BEDTIME [facility] Last Admin: 04/04/23 20:33 Dose: 30 mg Documented By: CHARITY Pharmacy Consult (Consult Rx Perform Med Rec) 1 each MISCELLANE ONCE PRN PRN Reason: Consult order Sodium Chloride (0.9 % Sodium Chloride Flush 3 Ml Syringe) 3 ml IVFLUSH QSHIFT [facility] Last Admin: 04/05/23 08:54 Dose: 3 ml Documented By: ALEX Labs 04/05/23 05:47 04/05/23 05:47 Labs: Laboratory Results - last 24 hr 04/04/23 04/04/23 04/04/23 11:01 11:01 11:01 MCV 80.3 MCH 25.1 L MCHC 31.3 RDW 14.6 Plt Count 340 MPV 9.1 L Immature Gran % (Auto) 0.4 Neut % (Auto) 78.2 H Lymph % (Auto) 15.3 L [place] % (Auto) 5.1 Eos % (Auto) 0.7 Baso % (Auto) 0.3 Lymph # (Auto) 1.1 L [place] # (Auto) 0.4 Eos # (Auto) 0.1 Baso # (Auto) 0.0 Abs Immat Gran (auto) 0.03 Absolute Neuts (auto) 5.5 Absolute Nucleated RBC 0.000 Nucleated RBC % (auto) 0.0 PT 11.7 INR 1.0 Anion Gap 15 Estim Creat Clear Calc 43.4 Estimated GFR 54 Random Glucose 126 H Calcium 9.1 Total Bilirubin 0.5 AST 14 ALT 10 Alkaline Phosphatase 65 Total Protein 6.3 L Albumin 3.8 Stool Occult Blood Blood Type Antibody Screen 04/04/23 04/04/23 04/05/23 11:33 11:33 05:47 MCV 82.6 MCH 25.9 L MCHC 31.4 RDW 14.8 Plt Count 261 MPV 9.4 Immature Gran % (Auto) Neut % (Auto) Lymph % (Auto) [place] % (Auto) Eos % (Auto) Baso % (Auto) Lymph # (Auto) [place] # (Auto) Eos # (Auto) Baso # (Auto) Abs Immat Gran (auto) Absolute Neuts (auto) Absolute Nucleated RBC 0.000 Nucleated RBC % (auto) 0.0 PT INR Anion Gap Estim Creat Clear Calc Estimated GFR Random Glucose Calcium Total Bilirubin AST ALT Alkaline Phosphatase Total Protein Albumin Stool Occult Blood POSITIVE Blood Type B Positive Antibody Screen NEGATIVE 04/05/23 05:47 MCV MCH MCHC RDW Plt Count MPV Immature Gran % (Auto) Neut % (Auto) Lymph % (Auto) [place] % (Auto) Eos % (Auto) Baso % (Auto) Lymph # (Auto) [place] # (Auto) Eos # (Auto) Baso # (Auto) Abs Immat Gran (auto) Absolute Neuts (auto) Absolute Nucleated RBC Nucleated RBC % (auto) PT INR Anion Gap 13 Estim Creat Clear Calc 43.9 Estimated GFR 55 Random Glucose 96 Calcium 8.6 Total Bilirubin AST ALT Alkaline Phosphatase Total Protein Albumin Stool Occult Blood Blood Type Antibody Screen Assessment and Plan (1) GI bleed: Status: Acute (2) Acute blood loss anemia: Status: Acute Plan Pt is a 72-year-old female with a PMH significant for?IBS, HTN, GERD, lupus, rheumatoid arthritis, hx of diverticulitis, and hx of CVA who presents to the ED with?3 episodes of coffee-ground emesis since last night and 1 episode of melena this morning. Pt will be admitted to the hospital for treatment and further evaluation of likely upper GI bleed with specialist consultation and likely endoscopy on Thursday. Likely upper GI bleed Hb dropped to 8.2 Protonix IV b.i.d. Hold aspirin GI could not add her to the list today, NPO Thursday night at midnight in anticipation of endoscopy on Thursday morning Pneumatic boots for DVT prophylaxis Follow CBC Orthostatic hypotension still positive this morning start IVF HTN Hold amlodipine, lisinopril for now On Carvedilol, decrease the dose, monitor BP Resume antihypertensives as necessary Asthma Continue home inhaler Anxiety Continue home meds DNR/DNI Attending:?Dr. Figueroa DVT Prophylaxis: Pneumatic Boots Pt will require a hospitalization of overnight for treatment of?likely upper GI bleed with specialist consultation and likely endoscopy on Thursday. Time Spent With Patient Time: Total time managing care of this patient today ____ minutes. Quality Stroke Does the patient have a stroke diagnosis?: No VTE Prior VTE?: No VTE Risk Level:: Medical - moderate - high VTE Device Contraindication: N/A - Device Ordered VTE Drug Contraindication: Treatment Not Indicated
--- NOTE | 2023-04-05 10:31 | P.CNGI_ITS ---
History of Present Illness Data of Consult Service Date: 04/05/23 Requesting physician: Suzan Wilde Primary Care Provider: Arnulfo Villalba MD [facility] Reason for consult: UGIB This is a 72-year-old female with past medical history of hypertension, GERD, rheumatoid arthritis, history of CVA, who presents for hematemesis and melena which Gastroenterology has been consulted. History was obtained from the patient who states that the day before admission, she developed abdominal pain in the morning and by the evening had progressed to nausea and multiple bouts of vomiting. Describes the emesis as reddish with coffee grounds. Reports that even the first episode of vomiting had blood in it. She then proceeded to have an episode of loose black stool the next morning that prompted her visit to the ER. No reported fevers, chills, chest pain, lightheadedness, palpitations. She does not report any history of NSAID use. Previously had a similar instance when she threw up colonoscopy prep 2 years ago. On arrival to the emergency room, she was noted to have orthostatic vitals. Labs were significant for drop in hemoglobin to 8.2 today, from last known Hb of 10.4. Chem 7 with elevated BUN to creatinine ratio. Currently reports no further vomiting since the day before admission and no further melena since coming to the hospital. Abd pain has resolved. Review of Systems Review of Systems: Yes all other systems are reviewed and are negative PMF Past Medical History Medical History CVA (cerebral vascular accident) Depression with anxiety Diverticulitis GERD (gastroesophageal reflux disease) HTN (hypertension), benign Hypertension Irritable bowel syndrome with both constipation and diarrhea Lupus Positive colorectal cancer screening using Cologuard test Tubular adenoma of colon Vertigo Family History Family History Father CAD (coronary artery disease) Maternal Grandmother HTN (hypertension), benign Father No problems noted. Mother Hypertension Asthma COPD (chronic obstructive pulmonary disease) Surgical History Surgical History History of cholecystectomy Hx of cholecystectomy Hx of colonoscopy Social History Social History Household Members: None Household Members Other:: 1 Housing: House Do you presently have visiting nurse or other home services: No Alcohol intake: never Patient Tobacco Use Status: Former Tobacco user Quit Date: 30 years ago Years Smoked: quit greater than 10 years ago Smoked in Last 30 Days: No Use of substances other than those prescribed or required for medical reasons: No Currently Displaying Signs/Symptoms of Drug Intoxication Withdrawal: No Have you been hit, kicked, punched, or otherwise hurt by someone within the past year? 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 Meds Allergies Allergy/AdvReac Type Severity Reaction Status Date / Time codeine Allergy Intermediate sweats, Verified 04/04/23 10:14 shaky egg Allergy Intermediate Heartburn Verified 04/04/23 10:14 Sulfa (Sulfonamide Allergy Intermediate RASH Verified 04/04/23 10:14 Antibiotics) [SULFA (SULFONAMIDE ANTIBIOTICS)] Antihistamine Allergy Unknown Shakiness Verified 04/04/23 10:14 Codeine Sulfate Allergy Unknown Anaphylaxis Verified 04/04/23 10:14 Antihistamines Allergy Intermediate sweats,mikey Uncoded 11/20/22 09:07 y Active Medications: Current Medications Acetaminophen (Acetaminophen 325 Mg Tablet) 650 mg PO Q6H PRN PRN Reason: Pain, Mild (Pain Scale 1-3) Albuterol Sulfate (Albuterol Sulfate 90 Mcg 8 Gm Inhaler) 2 puff INHALE Q4H PRN PRN Reason: Respiratory Distress Amitriptyline HCl (Amitriptyline Hcl 10 Mg Tablet) 10 mg PO BEDTIME [facility] Last Admin: 04/04/23 20:33 Dose: 10 mg Atorvastatin Calcium (Atorvastatin Calcium 40 Mg Tablet) 40 mg PO BEDTIME [facility] Last Admin: 04/04/23 20:33 Dose: 40 mg Buspirone HCl (Buspirone Hcl 10 Mg Tablet) 10 mg PO BID [facility] Last Admin: 04/05/23 08:54 Dose: 10 mg Carvedilol (Carvedilol 25 Mg Tablet) 25 mg PO BID [facility]; Protocol Last Admin: 04/05/23 08:54 Dose: 25 mg Chlordiazepoxide HCl (Chlordiazepoxide Hcl 5 Mg Capsule) 5 mg PO TID PRN PRN Reason: anxiety Docusate Sodium (Docusate Sodium 100 Mg Capsule) 100 mg PO DAILY PRN PRN Reason: Constipation Fluticasone Propionate (Fluticasone Propionate Nasal 16 Gm [place]) 1 spray NOSTRIL-B DAILY PRN PRN Reason: Allergic Symptoms Lactated Ringer's (Lr) 1,000 mls @ 100 mls/hr IVCONT .Q10H [facility] Last Admin: 04/05/23 06:33 Dose: 100 mls/hr Ondansetron HCl (Ondansetron Hcl 4 Mg/2 Ml Vial) 4 mg IVPUSH Q8H PRN PRN Reason: Nausea and Vomiting Pantoprazole Sodium (Pantoprazole Sodium 40 Mg/10 Ml Vial) 40 mg IVPUSH BID@0630,1630 [facility] Last Admin: 04/05/23 06:06 Dose: 40 mg Paroxetine HCl (Paroxetine Hcl 30 Mg Tablet) 30 mg PO BEDTIME [facility] Last Admin: 04/04/23 20:33 Dose: 30 mg Pharmacy Consult (Consult Rx Perform Med Rec) 1 each MISCELLANE ONCE PRN PRN Reason: Consult order Sodium Chloride (0.9 % Sodium Chloride Flush 3 Ml Syringe) 3 ml IVFLUSH QSHIFT [facility] Last Admin: 04/05/23 08:54 Dose: 3 ml Home Medications Medication Instructions Recorded Confirmed Last Taken Type fluticasone propionate 50 1 spray intranasal DAILY PRN 08/08/20 04/04/23 05/21/21 History mcg/actuation nasal Allergic Symptoms spray,suspension albuterol sulfate 90 mcg/actuation 2 puff inhalation Q4-6H PRN 10/22/21 04/04/23 Unknown History aerosol inhaler (Ventolin HFA) Respiratory Distress acetaminophen 500 mg tablet 1,000 mg PO Q6H PRN Pain 07/24/22 04/04/23 Unknown History (Tylenol Extra Strength) aspirin 81 mg tablet,delayed 81 mg PO DAILY 07/24/22 04/04/23 04/04/23 History release (Adult Low Dose Aspirin) alendronate 70 mg tablet 1 tab PO FR@0600 10/24/22 04/04/23 04/03/23 History carvedilol 25 mg tablet 1 tab PO BID 10/24/22 04/04/23 04/04/23 History lisinopril 20 mg tablet 1 tab PO DAILY 10/24/22 04/04/23 04/04/23 History magnesium chloride 71.5 mg 1 tab PO DAILY 10/24/22 04/04/23 04/04/23 History (magnesium chloride) tablet,delayed release (Slow-Mag) omeprazole 40 mg capsule,delayed 1 cap PO BID 10/24/22 04/04/23 04/04/23 History release paroxetine HCl 30 mg tablet 1 tab PO BEDTIME 10/24/22 04/04/23 04/03/23 History buspirone 10 mg tablet 10 mg PO BID 04/04/23 04/04/23 04/04/23 History Physical Exam Vital Signs: Vital Signs: Last Vital Signs Temp 98.7 F 04/05/23 07:51 Pulse 65 04/05/23 07:51 Resp 16 04/05/23 07:51 BP 127/60 04/05/23 07:51 Pulse Ox 95 04/05/23 07:51 O2 Del Method Room Air 04/05/23 07:51 BMI result Body Mass Index 29.7 Gen appear: NAD HEENT: nonicteric, no cervical lymphadenopathy Chest: CTA CVS: Regular S1/S2 Abd: soft, nontender, nondistended, bowel sounds + Ext: no peripheral edema Neuro: A/Ox3, noted to move all extremities spontaneously Psych: interacting appropriately Results Labs 04/05/23 05:47 04/05/23 05:47 Labs: Short CBC 04/04/23 04/05/23 Range/Units 11:01 05:47 WBC 7.1 5.2 (4.8-10.8) X10*3/uL Hgb 9.8 L 8.2 L (12.0-16.0) g/dl Hct 31.3 L 26.1 L (37.0-47.0) % Plt Count 340 261 (160-400) X10*3/uL BMP 04/04/23 04/05/23 11:01 05:47 Sodium 142 140 Potassium 3.8 3.5 Chloride 106 107 Carbon Dioxide 25 24 BUN 29 H 23 H Creatinine 1.00 0.99 Calcium 9.1 8.6 Liver Function 04/04/23 Range/Units 11:01 Total Bilirubin 0.5 (0.0-1.0) mg/dL AST 14 (5-31) U/L ALT 10 (0-31) U/L Alkaline Phosphatase 65 (39-117) U/L Albumin 3.8 (3.5-5.0) g/dL Assessment and Plan (1) Acute blood loss anemia: Status: Acute (2) GI bleed: Status: Acute Plan Has worsening acute on chronic anemia most likely from upper GI bleed given clinical presentation. We will plan for a diagnostic upper endoscopy, which is tentatively scheduled for tomorrow, due to scheduling constraints today. Ddx include PUD, esophagitis/gastritis, MWT. Recommendations: - CLD today, NPO after MN - Cont IV protonix BID - Maintain x2 peripheral IV access and an active type and cross - Further recommendations to follow in the procedure note. Thank you for allowing me to participate in her care. Please do not hesitate to reach out for any questions or concerns. Time Spent With Patient Time: Total time managing care of this patient today ____ minutes. Procedures Date of Service Date of Service: 04/05/23
--- NOTE | 2023-04-05 13:18 | MHC.CM.PN ---
PT REPORTS SHE LIVES ALONE AND IS INDEPENDENT WITH CARE SHE USES A CANE TO AMBULATE AND HAS NO SERVICES PT COMPLETED A HCP TODAY NAMING HER [id number], COLLEEN GREY, HER AGENT PCP: DARCI ROBB IMM DELIVERED DCP: HOME NO SERVICES VIA FAMILY TRANSPORT
[2023-04-05 14:07] LABS: Hematocrit 23.8 % (37.0-47.0); Hemoglobin 7.4 g/dl (12.0-16.0); Mean Corpuscular HGB Conc 31.1 g/dl (31.0-35.0); Mean Corpuscular Hemoglobin 25.6 pg (27.0-33.0); Mean Corpuscular Volume 82.4 fL (80.0-98.0); Mean Platelet Volume 10.3 fL (9.4-12.3); Platelet Count 193 X10*3/uL (160-400); Red Blood Count 2.89 X10*6/uL (4.20-5.50); Red Cell Distribution Width 14.7 % (11.0-16.0); White Blood Count 4.6 X10*3/uL (4.8-10.8)
[2023-04-05] MEDS: Atorvastatin Calcium 40 MG TABLET PO (20:20)
[2023-04-05] MEDS: PARoxetine HCL 30 MG TABLET PO (20:20)
[2023-04-05] MEDS: carvediloL 12.5 MG TABLET PO (20:20)
[2023-04-05] MEDS: Amitriptyline HCl 10 MG TABLET PO (20:20)
[2023-04-06] VITALS (8 sets, daily range): BP systolic 127–181; BP diastolic 63–77; PULSE 65–80; RESP 16–20; TEMP 36.2–36.7; O2SAT 93–97
[2023-04-06 01:22] LABS: Hematocrit 32.3 % (37.0-47.0); Hemoglobin 10.5 g/dl (12.0-16.0); Mean Corpuscular HGB Conc 32.5 g/dl (31.0-35.0); Mean Corpuscular Hemoglobin 27.3 pg (27.0-33.0); Mean Corpuscular Volume 84.1 fL (80.0-98.0); Mean Platelet Volume 9.1 fL (9.4-12.3); Platelet Count 217 X10*3/uL (160-400); Red Blood Count 3.84 X10*6/uL (4.20-5.50); Red Cell Distribution Width 15.8 % (11.0-16.0); White Blood Count 4.5 X10*3/uL (4.8-10.8)
[2023-04-06] MEDS: Pantoprazole Sodium 40 MG/10 ML VIAL IVPUSH ×2 (05:55→15:49)
[2023-04-06 06:03] LABS: Hemoglobin 10.1 g/dl (12.0-16.0); Mean Corpuscular HGB Conc 31.6 g/dl (31.0-35.0); Mean Corpuscular Volume 85.6 fL (80.0-98.0); Mean Platelet Volume 9.8 fL (9.4-12.3); Platelet Count 200 X10*3/uL (160-400); Red Blood Count 3.74 X10*6/uL (4.20-5.50); Red Cell Distribution Width 15.5 % (11.0-16.0); White Blood Count 3.7 X10*3/uL (4.8-10.8)
[2023-04-06] MEDS: Lactated Ringers 1,000 ML 100 ML IVCONT (06:47)
[2023-04-06] MEDS: busPIRone HCl 10 MG TABLET PO (08:58)
[2023-04-06] MEDS: carvediloL 12.5 MG TABLET PO (08:58)
--- NOTE | 2023-04-06 13:00 | MHC.SHP ---
Pre-Procedural Eval Section A Date of Service: 04/06/23 The patient is an INPATIENT: Yes The History & Physical has been completed within 30 days and I have reviewed it.: Yes Section B Chief Complaint: hematemesis, melena, generalized weakness Allergies: Allergies Allergy/AdvReac Type Severity Reaction Status Date / Time Codeine Sulfate Allergy Severe Anaphylaxis Verified 04/06/23 12:29 Antihistamine Allergy Intermediate Shakiness Verified 04/06/23 12:29 egg Allergy Intermediate Heartburn Verified 04/06/23 12:29 Sulfa (Sulfonamide Allergy Intermediate RASH Verified 04/06/23 12:29 Antibiotics) [SULFA (SULFONAMIDE ANTIBIOTICS)] Plan Diagnosis/Plan: Unchanged I have reviewed the history and physical and performed a pertinent physical examination on my patient. No changes have occurred unless specified. Time Spent With Patient Time: Total time managing care of this patient today ____ minutes.
--- NOTE | 2023-04-06 13:02 | P.CONAN_ITS ---
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 (Acute) Drug-induced diarrhea (Acute) Hypomagnesemia (Acute) Trochanteric bursitis of both hips (Acute) Other osteoporosis without current pathological fracture (Acute) Systemic lupus erythematosus (Acute) Anemia (Acute) Poor balance (Acute) Acute hyponatremia (Acute) Dysuria (Acute) Greater trochanteric pain syndrome of both lower extremities (Acute) Acute blood loss anemia (Acute) GI bleed (Acute) Lupus (Acute) Depression with anxiety (Acute) GERD (gastroesophageal reflux disease) (Acute) Irritable bowel syndrome with both constipation and diarrhea (Acute) Past Medical History Medical History (Updated 04/05/23 @ 10:32 by Nevin Alcala MD) CVA (cerebral vascular accident) Depression with anxiety Diverticulitis GERD (gastroesophageal reflux disease) HTN (hypertension), benign Hypertension Irritable bowel syndrome with both constipation and diarrhea Lupus Positive colorectal cancer screening using Cologuard test Tubular adenoma of colon Vertigo Family History Family History Father CAD (coronary artery disease) Maternal Grandmother HTN (hypertension), benign Father No problems noted. Mother Hypertension Asthma COPD (chronic obstructive pulmonary disease) Family history of problems with anesthesia: No Surgical History Surgical History (Updated 04/06/23 @ 12:28 by Sherie Teixeira) History of cholecystectomy Hx of colonoscopy History of Problems with Anesthesia: No Social History Social History Household Members: None Household Members Other:: 1 Housing: House Do you presently have visiting nurse or other home services: No Alcohol intake: never Patient Tobacco Use Status: Former Tobacco user Quit Date: 1991 Tobacco use type: Cigarette Years Smoked: quit greater than 10 years ago Smoked in Last 30 Days: No Use of substances other than those prescribed or required for medical reasons: No Currently Displaying Signs/Symptoms of Drug Intoxication Withdrawal: No Have you been hit, kicked, punched, or otherwise hurt by someone within the past year? If so, by whom?: No Do you feel safe in your current relationship?: No Is there a partner from a previous relationship who is making you feel unsafe now?: No Are you made to feel afraid or neglected: No Yazdanism Healthcare Practices: yazidi Are you DNR?: Yes Advance Directives: No Do you have thoughts of harming others: None Do you have a plan to hurt others: No Plan Recently lost weight without trying: No Nutrition Risks: No Nutritional Risk Patient : No : No Poor oral hygiene: No service: No Current occupational status: retired Current occupation: Retired [employer] INS[employer]OR Meds Allergies Allergy/AdvReac Type Severity Reaction Status Date / Time Codeine Sulfate Allergy Severe Anaphylaxis Verified 04/06/23 12:29 Antihistamine Allergy Intermediate Shakiness Verified 04/06/23 12:29 egg Allergy Intermediate Heartburn Verified 04/06/23 12:29 Sulfa (Sulfonamide Allergy Intermediate RASH Verified 04/06/23 12:29 Antibiotics) [SULFA (SULFONAMIDE ANTIBIOTICS)] Active Medications: Current Medications Acetaminophen (Acetaminophen 325 Mg Tablet) 650 mg PO Q6H PRN PRN Reason: Pain, Mild (Pain Scale 1-3) Albuterol Sulfate (Albuterol Sulfate 90 Mcg 8 Gm Inhaler) 2 puff INHALE Q4H PRN PRN Reason: Respiratory Distress Amitriptyline HCl (Amitriptyline Hcl 10 Mg Tablet) 10 mg PO BEDTIME [facility] [place] Last Admin: 04/05/23 20:20 Dose: 10 mg Atorvastatin Calcium (Atorvastatin Calcium 40 Mg Tablet) 40 mg PO BEDTIME [facility] [place] Last Admin: 04/05/23 20:20 Dose: 40 mg Buspirone HCl (Buspirone Hcl 10 Mg Tablet) 10 mg PO BID [facility] [place] Last Admin: 04/06/23 08:58 Dose: 10 mg Carvedilol (Carvedilol 12.5 Mg Tablet) 12.5 mg PO BID [facility] [place]; Protocol Last Admin: 04/06/23 08:58 Dose: 12.5 mg Chlordiazepoxide HCl (Chlordiazepoxide Hcl 5 Mg Capsule) 5 mg PO TID PRN PRN Reason: anxiety Docusate Sodium (Docusate Sodium 100 Mg Capsule) 100 mg PO DAILY PRN PRN Reason: Constipation Fluticasone Propionate (Fluticasone Propionate Nasal 16 Gm Hydro) 1 spray NOSTRIL-B DAILY PRN PRN Reason: Allergic Symptoms Lactated Ringer's (Lr) 1,000 mls @ 100 mls/hr IVCONT .Q10H [facility] [place] Last Infusion: 04/06/23 12:34 Dose: 0 mls/hr Ondansetron HCl (Ondansetron Hcl 4 Mg/2 Ml Vial) 4 mg IVPUSH Q8H PRN PRN Reason: Nausea and Vomiting Pantoprazole Sodium (Pantoprazole Sodium 40 Mg/10 Ml Vial) 40 mg IVPUSH BID@0630,1630 [facility] [place] Last Admin: 04/06/23 05:55 Dose: 40 mg Paroxetine HCl (Paroxetine Hcl 30 Mg Tablet) 30 mg PO BEDTIME [facility] [place] Last Admin: 04/05/23 20:20 Dose: 30 mg Pharmacy Consult (Consult Rx Perform Med Rec) 1 each MISCELLANE ONCE PRN PRN Reason: Consult order Sodium Chloride (0.9 % Sodium Chloride Flush 3 Ml Syringe) 3 ml IVFLUSH QSHIFT [facility] [place] Last Admin: 04/06/23 08:59 Dose: Not Given Home Medications Medication Instructions Recorded Confirmed Last Taken Type fluticasone propionate 50 1 spray intranasal DAILY PRN 08/08/20 04/04/23 05/21/21 History mcg/actuation nasal Allergic Symptoms spray,suspension albuterol sulfate 90 mcg/actuation 2 puff inhalation Q4-6H PRN 10/22/21 04/04/23 Unknown History aerosol inhaler (Ventolin HFA) Respiratory Distress acetaminophen 500 mg tablet 1,000 mg PO Q6H PRN Pain 07/24/22 04/04/23 Unknown History (Tylenol Extra Strength) aspirin 81 mg tablet,delayed 81 mg PO DAILY 07/24/22 04/04/23 04/04/23 History release (Adult Low Dose Aspirin) alendronate 70 mg tablet 1 tab PO FR@0600 10/24/22 04/04/23 04/03/23 History carvedilol 25 mg tablet 1 tab PO BID 10/24/22 04/04/23 04/04/23 History lisinopril 20 mg tablet 1 tab PO DAILY 10/24/22 04/04/23 04/04/23 History magnesium chloride 71.5 mg 1 tab PO DAILY 10/24/22 04/04/23 04/04/23 History (magnesium chloride) tablet,delayed release (Slow-Mag) omeprazole 40 mg capsule,delayed 1 cap PO BID 10/24/22 04/04/23 04/04/23 History release paroxetine HCl 30 mg tablet 1 tab PO BEDTIME 10/24/22 04/04/23 04/03/23 History buspirone 10 mg tablet 10 mg PO BID 04/04/23 04/04/23 04/04/23 History Exam Exam Date and Time: April 06, 2023 1302 Height,Weight and Vital Signs: Height 5 ft Weight 69.1 kg Last Vital Signs Temp 97.8 F 04/06/23 12:17 Pulse 70 04/06/23 12:17 Resp 16 04/06/23 12:17 BP 154/70 H 04/06/23 12:17 Pulse Ox 95 04/06/23 12:17 O2 Del Method Room Air 04/06/23 12:17 Pertinent Lab Results Pertinent Lab Results: Laboratory Tests 04/04/23 04/04/23 04/04/23 11:01 11:01 11:01 WBC 7.1 RBC 3.90 L Hgb 9.8 L Hct 31.3 L MCV 80.3 MCH 25.1 L MCHC 31.3 RDW 14.6 Plt Count 340 MPV 9.1 L Immature Gran % (Auto) 0.4 Neut % (Auto) 78.2 H Lymph % (Auto) 15.3 L [place] % (Auto) 5.1 Eos % (Auto) 0.7 Baso % (Auto) 0.3 Lymph # (Auto) 1.1 L [place] # (Auto) 0.4 Eos # (Auto) 0.1 Baso # (Auto) 0.0 Abs Immat Gran (auto) 0.03 Absolute Neuts (auto) 5.5 Absolute Nucleated RBC 0.000 Nucleated RBC % (auto) 0.0 PT 11.7 INR 1.0 Sodium 142 Potassium 3.8 Chloride 106 Carbon Dioxide 25 Anion Gap 15 BUN 29 H Creatinine 1.00 Estim Creat Clear Calc 43.4 Estimated GFR 54 Random Glucose 126 H Calcium 9.1 Total Bilirubin 0.5 AST 14 ALT 10 Alkaline Phosphatase 65 Total Protein 6.3 L Albumin 3.8 Stool Occult Blood Blood Type Antibody Screen Crossmatch 04/04/23 04/04/23 04/05/23 11:33 11:33 05:47 WBC 5.2 RBC 3.16 L Hgb 8.2 L Hct 26.1 L MCV 82.6 MCH 25.9 L MCHC 31.4 RDW 14.8 Plt Count 261 MPV 9.4 Immature Gran % (Auto) Neut % (Auto) Lymph % (Auto) [place] % (Auto) Eos % (Auto) Baso % (Auto) Lymph # (Auto) [place] # (Auto) Eos # (Auto) Baso # (Auto) Abs Immat Gran (auto) Absolute Neuts (auto) Absolute Nucleated RBC 0.000 Nucleated RBC % (auto) 0.0 PT INR Sodium Potassium Chloride Carbon Dioxide Anion Gap BUN Creatinine Estim Creat Clear Calc Estimated GFR Random Glucose Calcium Total Bilirubin AST ALT Alkaline Phosphatase Total Protein Albumin Stool Occult Blood POSITIVE Blood Type B Positive Antibody Screen NEGATIVE Crossmatch 04/05/23 04/05/23 04/05/23 05:47 13:54 15:21 WBC 4.6 L RBC 2.89 L Hgb 7.4 L Hct 23.8 L MCV 82.4 MCH 25.6 L MCHC 31.1 RDW 14.7 Plt Count 193 D MPV 10.3 Immature Gran % (Auto) Neut % (Auto) Lymph % (Auto) [place] % (Auto) Eos % (Auto) Baso % (Auto) Lymph # (Auto) [place] # (Auto) Eos # (Auto) Baso # (Auto) Abs Immat Gran (auto) Absolute Neuts (auto) Absolute Nucleated RBC 0.000 Nucleated RBC % (auto) 0.0 PT INR Sodium 140 Potassium 3.5 Chloride 107 Carbon Dioxide 24 Anion Gap 13 BUN 23 H Creatinine 0.99 Estim Creat Clear Calc 43.9 Estimated GFR 55 Random Glucose 96 Calcium 8.6 Total Bilirubin AST ALT Alkaline Phosphatase Total Protein Albumin Stool Occult Blood Blood Type B Positive Antibody Screen NEGATIVE Crossmatch See Detail 04/06/23 04/06/23 01:07 05:46 WBC 4.5 L 3.7 L RBC 3.84 L D 3.74 L Hgb 10.5 L D 10.1 L Hct 32.3 L D 32.0 L MCV 84.1 85.6 MCH 27.3 27.0 MCHC 32.5 31.6 RDW 15.8 15.5 Plt Count 217 200 MPV 9.1 L 9.8 Immature Gran % (Auto) Neut % (Auto) Lymph % (Auto) [place] % (Auto) Eos % (Auto) Baso % (Auto) Lymph # (Auto) [place] # (Auto) Eos # (Auto) Baso # (Auto) Abs Immat Gran (auto) Absolute Neuts (auto) Absolute Nucleated RBC 0.000 0.000 Nucleated RBC % (auto) 0.0 0.0 PT INR Sodium Potassium Chloride Carbon Dioxide Anion Gap BUN Creatinine Estim Creat Clear Calc Estimated GFR Random Glucose Calcium Total Bilirubin AST ALT Alkaline Phosphatase Total Protein Albumin Stool Occult Blood Blood Type Antibody Screen Crossmatch Airway Mallampati Class: II TM Dist: >3cm Neck ROM: Full Partial: Upper and Lower Heart: rrr Lungs: cta Assessment and Plan Assessment Anesthesia Assessment: Anesthesia Plan Discussed and Chart Reviewed Final Anesthetic Review Family History of Problems with Anesthesia: No History of Problems with Anesthesia: No NPO: Yes ASA Class: III Final Preanesthetic Review: No Changes in Pt Med Stat, Meds/Allgs Chart Reviewed and Consent Obtained/Reviewed Patient Risk: Intermediate Procedure Risk: Intermediate Anesthetic Plan Anesthetic Plan: MAC: Disposition: Standard PACU
--- NOTE | 2023-04-06 13:42 | P.OP_ITS ---
Operative Note Operative Note Date of Service: 04/06/23 Narrative: Procedure: Esophagogastroduodenoscopy Endoscopist: Nevin Alcala MD Indication: Hematemesis, melena Anesthesia Provider: Dr Kori Ramsay Anesthesia Type: MAC ?? EGD Procedure:?? The procedure, indications, preparation and potential complications were reviewed with the patient, who indicated understanding and gave written informed consent to proceed. A physical exam was performed. The endoscope was introduced through the mouth, and advanced to the second part of duodenum. The mucosa was carefully examined on slow withdrawal of the endoscope. The patient tolerated the procedure well. There were no immediate complications.? ? EGD Findings:? * Esophagus:? Normal mucosa noted in the entire esophagus. The Z line was at 26 cm. Large hiatal hernia was noted with diaphragmatic hiatus at 38 cm. * Stomach:? Normal mucosa was noted in the stomach. Retroflexion in the fundus confirmed the size and morphology of the hiatal hernia as hill class IV. No erosions or ulceration noted. * Duodenum:? Normal mucosa was noted in the whole of the examined duodenum. ? EGD Impressions:? * Normal esophagus * Large hiatal hernia * Normal stomach * Normal duodenum ?? Recommendations:?? * No evidence of upper GI bleed on the endoscopy today. * Barium esophagogram ordered. May benefit from seeing thoracic surgery in future. 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
[2023-04-06] MEDS: 0.9 % Sodium Chloride Flush 3 ML SYRINGE IVFLUSH (15:49)
--- NOTE | 2023-04-06 16:07 | P.DS_ITS ---
DS: Providers Provider Date of Service: 04/07/23 Date of admission: 04/04/23 15:20 Primary care physician: Arnulfo Villalba MD Consults: 04/04/23 15:31 Consult to Gastroenterology Routine Consulting Provider: Nevin Alcala Reason for consultation: Upper GI bleed, coffee ground emesis DS: Diagnosis Discharge Diagnosis (1) Acute blood loss anemia: Status: Resolved (2) GI bleed: Status: Resolved DS: Summary Hospital Course Hospital Course: Admission note HPI Pt is a 72-year-old female with a PMH significant for?IBS, HTN, GERD, lupus, rheumatoid arthritis, hx of diverticulitis, and hx of CVA who presents to the ED with?3 episodes of coffee-ground emesis since last night and 1 episode of melena this morning.? Patient states she began experiencing abdominal pain, nausea, and vomiting last night with vomitus that was dark black and gritty. ? Patient also reports generalized weakness and nausea with standing up.? Patient's last episode vomiting was around 03:00 this morning, but when patient had a bowel movement at 10:00 she noted it was dark black in color.? Patient states that she has had at least 3 similar episodes of coffee-ground emesis in the past 2 years.? No fever, chills.? Denies chest pain/pressure, palpitations.? Chronic shortness of breath without change.? Pt currently denies nausea, vomiting, abdominal pain. In the ED patient was afebrile and hypotensive as low as 80/50. Labs were significant for normocytic anemia of 9.8/31.3 (around baseline), creatinine slightly elevated at 1.00. Coags WNL.? Electrolytes WNL.? Hepatic function baseline.? Stool is positive for occult blood. Pt was treated with IV pantoprazole and IVF. Pt will be admitted to the hospital for treatment and further evaluation of likely upper GI bleed with specialist consultation and likely endoscopy on Thursday. Hospital course The patient presented to the hospital complaining of upper GI bleed with Hb dropped to 8.2. Started on Protonix IV b.i.d. while holding aspirin. GI did endoscopy on Thursday morning with no evidence of any acute source of bleeding. stable Hemoglobin levels. were able to tolerate diet. discharged home with a plan to follow with GI as outpatient. Noted to have Orthostatic hypotension on admission. recieved IVF with good response as no more orthostatics noted prior to discharge. was able to ambulate with no lightheadedness or dizziness. Continue Omeprazole twice daily Avoid pain meds such Advil, Motrin or Alieve To repeat blood test next week Follow with Gastroenterology as outpatient will need a follow up with thoracic surgery as outpatient with dr Ruiz, referral made. Time Spent with Patient Time attestation: Total time managing care of this patient today ____ minutes. Discharge coordination time: Greater than 30 minutes Quality: Safe Use of Opioids Does Pt have an Active Cancer Diagnosis on the Problem List?: No Quality: Stroke Does the patient have a stroke diagnosis?: No Physical Exam Vital Signs: Vital Signs: Last Vital Signs Temp 97.3 F 04/06/23 15:58 Pulse 78 04/06/23 15:58 Resp 20 04/06/23 15:58 BP 181/77 H 04/06/23 15:58 Pulse Ox 96 04/06/23 15:58 O2 Del Method Room Air 04/06/23 15:58 BMI result Body Mass Index 29.7 DS: Data Data Completed and Pending Labs on day of discharge: Laboratory Results - last 24 hr 04/05/23 04/06/23 04/06/23 15:21 01:07 05:46 WBC 4.5 L 3.7 L RBC 3.84 L D 3.74 L Hgb 10.5 L D 10.1 L Hct 32.3 L D 32.0 L MCV 84.1 85.6 MCH 27.3 27.0 MCHC 32.5 31.6 RDW 15.8 15.5 Plt Count 217 200 MPV 9.1 L 9.8 Absolute Nucleated RBC 0.000 0.000 Nucleated RBC % (auto) 0.0 0.0 Blood Type B Positive Antibody Screen NEGATIVE Crossmatch See Detail Imaging CT scan - abdomen: Radiologist's impression: ITS Impressions Barium Swallow X-Ray 04/06/23 15:22 IMPRESSION: Moderate size hiatal hernia. Question irregularity or wall thickening along the left side of the hiatal hernia appreciated with the patient upright. Correlation with endoscopy results recommended. Significant gastroesophageal reflux and abnormal esophageal motility on prone/BROWN drinking esophagram. Temporary stasis of the barium tablet in the hiatal hernia. No evidence of obstruction. EGD EGD Findings:? * Esophagus:? Normal mucosa noted in the entire esophagus. The Z line was at 26 cm. Large hiatal hernia was noted with diaphragmatic hiatus at 38 cm. * Stomach:? Normal mucosa was noted in the stomach. Retroflexion in the fundus confirmed the size and morphology of the hiatal hernia as hill class IV. No erosions or ulceration noted. * Duodenum:? Normal mucosa was noted in the whole of the examined duodenum.? EGD Impressions:? * Normal esophagus * Large hiatal hernia * Normal stomach * Normal duodenum?? Recommendations:?? * No evidence of upper GI bleed on the endoscopy today. * Barium esophagogram ordered. May benefit from seeing thoracic surgery in future. 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 Discharge Plan Discharge Anticipated Discharge Date/Time: 04/06/23 15:58 Patient Disposition: Home, Self-Care Discharge Diagnosis: blood loss anemia Gastrointestinal bleeding Referrals: Arnulfo Villalba MD [Primary Care Provider] - 1 Week Kyaw Ruiz MD [Physician] - 2 Weeks (Moderate size hiatal hernia. Hx Hematemesis with no abnormalities on EGD. ) Discharge Medications: Continued atorvastatin 40 mg Tablet 40 mg PO BEDTIME Qty: 30 0RF carvedilol 25 mg tablet 1 tab PO BID lisinopril 20 mg tablet 1 tab PO DAILY alendronate 70 mg tablet 1 tab PO FR@0600 paroxetine HCl 30 mg tablet 1 tab PO BEDTIME Slow-Mag 71.5 mg tablet,delayed release (DR/EC) 1 tab PO DAILY amlodipine 5 mg Tablet 5 mg PO DAILY Qty: 30 0RF Protocol: Hold for SBP< HOLD for SBP < : 90 buspirone 10 mg Tablet 10 mg PO BID omeprazole 40 mg capsule,delayed release(DR/EC) 1 cap PO BID Qty: 60 0RF fluticasone propionate 50 mcg/actuation spray,suspension 1 spray intranasal DAILY PRN (Reason: Allergic Symptoms) albuterol sulfate [Ventolin HFA] 90 mcg/actuation HFA aerosol inhaler 2 puff inhalation Q4-6H PRN (Reason: Respiratory Distress) aspirin [Adult Low Dose Aspirin] 81 mg tablet,delayed release (DR/EC) 81 mg PO DAILY acetaminophen [Tylenol Extra Strength] 500 mg tablet 1,000 mg PO Q6H PRN (Reason: Pain) amitriptyline 10 mg tablet 10 mg PO BEDTIME Qty: 30 2RF chlordiazepoxide HCl 5 mg capsule 5 mg PO TID PRN (Reason: anxiety) Qty: 90 3RF Discharge Orders: Discharge Order (Routine); Ordered 04/06/23 Ordered By: Azalea Figueroa Diet: Advance to usual diet Activity on Discharge: As tolerated Stand Alone Forms: Patient Portal Discharge page Other Ambulatory Orders: Complete Blood Count no Diff (Routine) Timeframe: 7 Days Facility: [facility] - Location: Laboratory Ordered By: Azalea Figueroa Care Plan Goals: Read below Health Concerns: Read below Plan of Treatment: Read below Assessment: You were admitted for evaluation of coffee ground emesis and dark stool positive for blood. requiring 2 units of blood transfusion. evaluated by script developer who did an upper endoscopy showing no evidence of bleeding or ulcers. Barium swallow study showed abnormal motility and large hiatal hernia. will need a follow up with thoracic surgery as outpatient. Continue Omeprazole twice daily Avoid pain meds such Advil, Motrin or Alieve To repeat blood test next week Follow with Gastroenterology as outpatient will need a follow up with thoracic surgery as outpatient with dr Ruiz, referral made. Discharge Date/Time: 04/06/23 17:32
--- NOTE | 2023-04-07 10:43 | P.CDIM_ITS ---
PROVIDER RESPONSE TEXT: To clarify, the appropriate diagnosis supported by the clinical indicators: Mild intermittent: stable QUERY TEXT: PHYSICIAN'S DOCUMENTATION REQUEST Date of Query: 04/06/2023 09:12 AM EDT Patient Name: Renata Fulton Admit Date: 04/04/2023 Dear Azalea Figueroa, A review of the medical record indicates additional documentation may be needed. Please review below and update the documentation accordingly. The diagnosis of Asthma was documented in the record on 04/05/23. Additional clinical indicators from the record include: Based on the above, please clarify in the Progress Notes further specificity regarding the type and a cuity of the asthma: Mild intermittent Please specify if with or without acute exacerbation or status asthmaticus Mild persistent Please specify if with or without acute exacerbation or status asthmaticus Moderate persistent Please specify if with or without acute exacerbation or status asthmaticus Severe persistent Please specify if with or without acute exacerbation or status asthmaticus Exercise induced Please specify if with or without acute exacerbation or status asthmaticus Chronic obstructive asthma and indicate if with acute lower respiratory infection Please specify if with or without acute exacerbation or status asthmaticus Asthma with underlying COPD and indicate if with acute lower respiratory infection Please specify if with or without acute exacerbation or status asthmaticus Other (explain)Clinically unable to determine (explain)Thank you, Chrissy Wiggins RN Use of terms such as suspected, likely, concern for, or probable (associated with a specific diagnosi s that is being evaluated, monitored, or treated as if it exists) are acceptable and can be coded in the inpatient se tting, when documented at the time of discharge. Please use your independent medical judgment in providing your response. THIS QUERY IS PART OF THE PERMANENT MEDICAL RECORD
== END 2023-04-06 17:32 | disposition home or self-care (01) | DRG 378 ==
LOC: HO.ED 12:30 → HO.EDOVER 15:40 → HO.S3 15:45
PROVIDERS: Internal Medicine; Registered Nurse Emergency; Admitting Provider Student in an Organized Health Care Education/Training Program; Emergency Provider Emergency Medicine; PCP Internal Medicine; Visit Provider Student in an Organized Health Care Education/Training Program
PROC: 0DJ08ZZ Inspection of Upper Intestinal Tract, Via Natural or Artificial Opening Endoscopic (ICD-10-PCS; CPT 43235; principal; 2023-04-06 12:30)
DX: K92.0 Hematemesis (principal); D62 Acute posthemorrhagic anemia; K21.9 Gastro-esophageal reflux disease without esophagitis; I95.1 Orthostatic hypotension; F41.9 Anxiety disorder, unspecified; Z66 Do not resuscitate; K44.9 Diaphragmatic hernia without obstruction or gangrene; Z86.73 Personal history of transient ischemic attack (TIA), and cerebral infarction without residual deficits; M06.9 Rheumatoid arthritis, unspecified; M32.9 Systemic lupus erythematosus, unspecified; Z88.2 Allergy status to sulfonamides; Z88.5 Allergy status to narcotic agent; Z79.51 Long term (current) use of inhaled steroids; Z79.82 Long term (current) use of aspirin; Z79.899 Other long term (current) drug therapy
CPT/HCPCS: 36415; 74220; 80048; 80053; 82272; 85025; 85027; 85610; 86850; 86900; 86901; 86923; 99285; J0171; P9016

== ENCOUNTER 2023-04-16 07:01 | Emergency (ER) | payer OTHER, SELFPAY ==
--- NOTE | ~2023-04-16 | XR_ITS ---
EXAMINATION: XR WRIST, RIGHT XR HAND, RIGHT CLINICAL INFORMATION: Pain status post fall COMPARISON: None available. TECHNIQUE: 3 views of the right hand with additional scaphoid view of the wrist. FINDINGS: There is an intra-articular distal radial fracture. There is dorsal displacement of the fragment. Ulnar styloid fracture. The carpal rows remain aligned with degenerative change at the triscaphe joint and first carpometacarpal joint. Additional degenerative changes throughout the interphalangeal joints with the appearance of erosive osteoarthritis at multiple digits. Diffuse soft tissue swelling. XR/XR hand wrist RT IMPRESSION: Intra-articular distal radial fracture with dorsal displacement. Ulnar styloid fracture. Advanced arthritic changes of the hand and wrist with findings of erosive osteoarthritis.
--- NOTE | 2023-04-16 07:17 | ED.UPPEXIN ---
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 She reports that she was pulling out weeds yesterday and fell on outstretch right arm. She admits to swelling in her hand and wrist as well as some redness on the affected area. She denies any hit to the head or any other bruises on her body. She endorses pain in the right hand and wrist, which she rates it 5/10. Patient denies any numbness or tingling. She reports no other acute concerns at this time. MD complaint: injury to: right, wrist and hand Onset (ago): day(s) (last night) Other Extremity Injury: right: fingers (swelling of the fingers), hand (slight ecchymosis) and wrist (swollen) Place: home Severity: moderate Severity scale (1-10): 5 Relieving factors: none Exacerbating factors: none Context: fall (FOOSH) Associated symptoms: denies other symptoms Treatments prior to arrival: bandage Related Data Home Medications Medication Instructions Recorded Confirmed fluticasone propionate 50 1 spray intranasal DAILY PRN 08/08/20 04/04/23 mcg/actuation nasal Allergic Symptoms spray,suspension albuterol sulfate 90 mcg/actuation 2 puff inhalation Q4-6H PRN 10/22/21 04/04/23 aerosol inhaler (Ventolin HFA) Respiratory Distress acetaminophen 500 mg tablet 1,000 mg PO Q6H PRN Pain 07/24/22 04/04/23 (Tylenol Extra Strength) aspirin 81 mg tablet,delayed 81 mg PO DAILY 07/24/22 04/04/23 release (Adult Low Dose Aspirin) alendronate 70 mg tablet 1 tab PO FR@0600 10/24/22 04/04/23 carvedilol 25 mg tablet 1 tab PO BID 10/24/22 04/04/23 lisinopril 20 mg tablet 1 tab PO DAILY 10/24/22 04/04/23 magnesium chloride 71.5 mg 1 tab PO DAILY 10/24/22 04/04/23 (magnesium chloride) tablet,delayed release (Slow-Mag) paroxetine HCl 30 mg tablet 1 tab PO BEDTIME 10/24/22 04/04/23 buspirone 10 mg tablet 10 mg PO BID 04/04/23 04/04/23 Previous Rx's Medication Instructions Recorded atorvastatin 40 mg tablet 40 mg PO BEDTIME #30 tabs 05/27/21 amlodipine 5 mg tablet 5 mg PO DAILY #30 tabs 10/26/22 amitriptyline 10 mg tablet 10 mg PO BEDTIME #30 tabs 03/11/23 chlordiazepoxide HCl 5 mg capsule 5 mg PO TID PRN anxiety #90 caps 03/11/23 omeprazole 40 mg capsule,delayed 1 cap PO BID #60 caps 04/06/23 release Allergies Allergy/AdvReac Type Severity Reaction Status Date / Time Codeine Sulfate Allergy Severe Anaphylaxis Verified 04/16/23 07:58 Antihistamine Allergy Intermediate Shakiness Verified 04/16/23 07:58 egg Allergy Intermediate Heartburn Verified 04/16/23 07:58 Sulfa (Sulfonamide Allergy Intermediate RASH Verified 04/16/23 07:58 Antibiotics) [SULFA (SULFONAMIDE ANTIBIOTICS)] Review of Systems Review of Systems: Yes all other systems are reviewed and are negative [facility] Past Medical History Medical History (Updated 04/16/23 @ 09:17 by SUNG Villalba) CVA (cerebral vascular accident) Depression with anxiety Diverticulitis GERD (gastroesophageal reflux disease) HTN (hypertension), benign Hypertension Irritable bowel syndrome with both constipation and diarrhea Lupus Positive colorectal cancer screening using Cologuard test Tubular adenoma of colon Vertigo Surgical History (Updated 04/06/23 @ 12:28 by Sherie Teixeira) History of cholecystectomy Hx of colonoscopy Family History Family History Father CAD (coronary artery disease) Maternal Grandmother HTN (hypertension), benign Father No problems noted. 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 Oriented X3. No acute distress. HEENT: normal inspection CVS: Normal heart rate and rhythm. Pulses normal. Respiratory: No respiratory distress. Skin: Skin warm and dry. Normal skin color. Normal skin turgor. No rashes. Extremities: positive swelling of the right hand and wrist, + ecchymosis noted on the dorsal aspect of the R hand. 2+ radial pulse. able to abduct each finger to the thumb. tenderness of the distal ulna and radius, no crepitus, no deformity Neuro: Oriented X 3. No motor deficit. No sensory deficit. 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 She reports that she was pulling out weeds at home and fell right on her right hand. Based on the patient's history and physical, I think she suffered a sprain of her right wrist and hand. To confirm, an X-ray of the arm and wrist were ordered. X-ray of the right wrist and hand showed that she had a intra-articular fracture of the distal radius as well as an ulnar styloid fracture. Case was discussed with Orthopedics. Recommending volar splint which was placed. Patient is in 0/10 pain after the splint. She was encouraged to follow-up with orthopedics, counseled on splint and management of swelling. She is stable for discharge home. Differential Diagnosis Differential Diagnoses: The differential diagnosis associated with the presentation includes 1. Fracture of the wrist 2. Strain and sprain of the wrist 3. Contusion of hand Independent Interpretation I performed an independent interpretation of an: Plain X-Ray Interpretation: Ulnar and distal radius fracture, agree w/ radiologist read Radiology Impression Discussion of test interpretation with radiology: I have reviewed the radiologist's reading. Radiologist Impression: XR/XR hand wrist RT Impression: Intra-articular distal radial fracture with dorsal displacement. Ulnar styloid fracture. Advanced arthritic changes of the hand and wrist findings of erosive osteoarthritis. I reviewed the radiologist impression and I agree with his impression. External Record Review External record reviewed: Prior outpatient labs Prescription Management I considered prescription management with: Pain Medication Procedures Orthopedic Splinting/Casting Injury #1: Side: right Upper Extremity Injury Location: wrist Upper Extremity Immobilizer: sling/shoulder immobilizer and volar splint Critical Care Time Critical Care Time Critical Care Time: No Discharge Plan Discharge Clinical Impression: Fracture of wrist Patient Disposition: Home, Self-Care Instructions: Wrist Fracture in Adults (ED) Additional Instructions: - Impression by radiologist: Intra-articular distal radial fracture with dorsal displacement. Ulnar styloid fracture. Advanced arthritic changes of the hand and wrist with findings of erosive osteoarthritis. - Plan: Keep arm elevated when possible and in place via sling to decrease swelling in the arm. Keep sling in place until evaluated by orthopedics and do not get it wet. Take Motrin and Tylenol as needed for pain. Follow up with orthopedics. Call for appointment. Prescriptions: No Action atorvastatin 40 mg Tablet 40 mg PO BEDTIME Qty: 30 0RF carvedilol 25 mg tablet 1 tab PO BID lisinopril 20 mg tablet 1 tab PO DAILY alendronate 70 mg tablet 1 tab PO FR@0600 paroxetine HCl 30 mg tablet 1 tab PO BEDTIME Slow-Mag 71.5 mg tablet,delayed release (DR/EC) 1 tab PO DAILY amlodipine 5 mg Tablet 5 mg PO DAILY Qty: 30 0RF Protocol: Hold for SBP< HOLD for SBP < : 90 buspirone 10 mg Tablet 10 mg PO BID omeprazole 40 mg capsule,delayed release(DR/EC) 1 cap PO BID Qty: 60 0RF fluticasone propionate 50 mcg/actuation spray,suspension 1 spray intranasal DAILY PRN (Reason: Allergic Symptoms) albuterol sulfate [Ventolin HFA] 90 mcg/actuation HFA aerosol inhaler 2 puff inhalation Q4-6H PRN (Reason: Respiratory Distress) aspirin [Adult Low Dose Aspirin] 81 mg tablet,delayed release (DR/EC) 81 mg PO DAILY acetaminophen [Tylenol Extra Strength] 500 mg tablet 1,000 mg PO Q6H PRN (Reason: Pain) amitriptyline 10 mg tablet 10 mg PO BEDTIME Qty: 30 2RF chlordiazepoxide HCl 5 mg capsule 5 mg PO TID PRN (Reason: anxiety) Qty: 90 3RF Referrals: [facility] – [place] Orthopedic Surgeons [Provider Group] (Wrist fracture) Interventions: ED Discharge Assessment Last Done: 04/16/23 09:27 Discharge Date/Time: 04/16/23 09:29
[2023-04-16 07:55] VITALS: BP 138/74; PULSE 76; RESP 16; TEMP 36.7; O2SAT 97; BMI 29.9
== END 2023-04-16 09:29 | disposition home or self-care (01) ==
PROVIDERS: Emergency Provider Emergency Medicine; PCP Internal Medicine
DX: S62.101A Fracture of unspecified carpal bone, right wrist, initial encounter for closed fracture (principal); R22.9 Localized swelling, mass and lump, unspecified; M25.531 Pain in right wrist; W01.0XXA Fall on same level from slipping, tripping and stumbling without subsequent striking against object, initial encounter; Y93.9 Activity, unspecified; Y92.9 Unspecified place or not applicable; Y99.9 Unspecified external cause status; Z87.891 Personal history of nicotine dependence; Z79.899 Other long term (current) drug therapy
CPT/HCPCS: 29125; 73110; 73130; 99284

== ENCOUNTER 2023-04-21 10:51 | Outpatient (REF) | payer OTHER, SELFPAY ==
[2023-04-21 11:45] LABS: Sodium 140 mmol/L (135-145)
[2023-04-21 11:49] LABS: Magnesium 1.4 mg/dL (1.6-2.6)
== END 2023-04-21 10:52 | disposition home or self-care (01) ==
LOC: HO.LNP 10:51
PROVIDERS: Visit Provider Internal Medicine
DX: E87.1 Hypo-osmolality and hyponatremia (principal)
CPT/HCPCS: 83735; 84295

== ENCOUNTER → 2023-04-22 08:22 | Outpatient (BNVA) | payer OTHER, SELFPAY | PROVIDERS: PCP Internal Medicine; Visit Provider Physician Assistant | DX: S52.501A Unspecified fracture of the lower end of right radius, initial encounter for closed fracture (principal) | CPT/HCPCS: 99202 ==

== ENCOUNTER 2023-04-23 11:09 | Day surgery (SDC) | payer OTHER, SELFPAY ==
[2023-04-23] VITALS (7 sets, daily range): BP systolic 128–147; BP diastolic 67–85; PULSE 61–74; RESP 12–17; TEMP 36.1–36.7; O2SAT 92–98; BMI 29.9
--- NOTE | ~2023-04-23 | FL_ITS ---
EXAMINATION: XR FLUOROSCOPY WITH IMAGES CLINICAL INFORMATION: Right distal radius fracture. COMPARISON: Previous x-ray 04/16/2023 TECHNIQUE: Fluoroscopy Supervised By: Dr. Desai. Fluoroscopy Time: 40.24. Cumulative Dose: 1.1216 mGy. DAP: 0.0678 Gycm2. Images: 3. FINDINGS: Images demonstrate plate and screws transfixing the right distal radius fracture with improved alignment. Nondisplaced ulnar styloid fracture unchanged. FL/FL guidance in OR IMPRESSION: Fluoroscopy guidance for ORIF of right distal radius fracture
--- NOTE | 2023-04-23 11:05 | P.OP_ITS ---
Operative Note Operative Note Date of Service: 04/23/23 Narrative: Operative Note Narrative: Preop diagnosis: 1. right Distal radius fracture , comminuted intra-articular Postop diagnosis: Same Procedure: 1.right Distal radius fracture open reduction internal fixation , 2 part intra- articular Surgeon: Victorina Desai MD Anesthesia: General anesthesia plus regional block Findings: comminuted intra-articular distal radius fracture Implants: A 3 hole standardAccu Med volar locking plate, with 5x 2.3 mm locking pegs/screws, and 3 3.5 mm cortical screws Tourniquet time: 50 minutes EBL: 5.0 ml Specimen: None Drains: None Complications: None Disposition: Brought to the recovery room in stable condition Plan: Follow-up in 10-14 days for wound check, suture removal and postop radiographs The patient will be placed in either a short-arm cast or a volar wrist splint. Encouraged no lifting of anything heavier than a cell phone. Please encourage active and passive range of motion of the digits. Follow-up at 4-5 weeks postop for repeat radiographs. Indications: The patient is a 72 year old woman with right distal radius fracture . The risks and benefits of operative treatment, including but not limited to risk of damage to blood vessels, nerves, tendons, infection, recurrence, persistent pain or numbness, incomplete resolution of preoperative symptoms, or need for further surgery were discussed with the patient and they wished to proceed with surgery. Procedure: Once consent was obtained patient was brought back to the operating suite and placed in the operating table in a supine position. A regional block was performed by the anesthesia team. Perioperative antibiotics and anesthesia was administered by the anesthesia team. A tourniquet was applied to the proximal aspect of the right upper extremity and the limb was prepped and draped in a standard surgical fashion. The limb was elevated exsanguinated with Esmarch bandage and the tourniquet inflated to 250 mm of mercury for a total tourniquet time of 50 minutes. The FluoroScan was used throughout the case to assess our reduction, and facilitate implant placement. A gentle closed reduction was 1st performed on the patient's right distal radius fracture. Was assessed radiographically before proceeding with the reduction internal fixation. I then made an 8 cm longitudinal incision over the distal aspect of the flexor carpi radialis tendon. The incision was made through the skin to the subcutaneous tissue using a 15. Blade. Then carefully dissected down to flexor carpi radialis tendon she tenotomy scissors. The FCR tendon sheath was then incised longitudinally using tenotomy scissors under direct visualization. The FCR tendon was then retracted ulnarly. I then made a longitudinal incision in the volar forearm fascia through the floor of FCR tendon sheath using tenotomy scissors under direct visualization. I identified the interval between the radial artery and the flexor tendons. This interval was developed further with my index finger, releasing some of the muscular fibers of the flexor pollicis longus. A dull weatlander retractor was then placed. I then created an ulnarly based flap of the pronator quadratus by releasing the radial and distal edges using a 15. Blade. A Moscoso elevator was used to elevate the pronator quadratus from the volar surface of the distal radius. This then revealed to us our distal radius fr acture. An open reduction was then performed on our distal radius fracture. I then placed a short standard 3 hole Accu Med volar locking plate on the volar surface of the distal radius. I 1st provisionally held our intra-articular fracture by placing An obliquely oriented K-wire through the tip of the radial styloid and advancing it retrograde and obliquely across our fracture. I placed a single K-wire through the distal aspect of the plate and into the distal radius. This was assessed using fluoroscopic images. I was satisfied with the placement of our plate. I then placed 5x 2.3 mm locking screws/pegs in the distal aspect of the plate and distal radius by 1st drilling bicortically with a 1.8 mm drill bit, measuring with a depth gauge, and placing the appropriate length locking screws/pegs. The placement of our plate and screws was then assessed again using fluoroscopic images. The once satisfied with the placement of the volar locking plate and screws on the distal aspect of the distal radius, the plate was then reduced to the shaft of the radius. I then placed 3 3.5 mm cortical screws to the proximal aspect of the plate and into the shaft of the radius. This was done by 1st drilling bicortically with a 2.8 mm drill bit, measuring with a depth gauge, and placing the appropriate length screw. Final radiographs were then obtained. The DRUJ was assessed and found to be stable on exam. I was satisfied with our reduction and placement of all implants. At this point the wound was irrigated with normal saline. The pronator quadratus was reduced back over the volar locking plate using some 3-0 Vicryl suture material. The tourniquet was then deflated and hemostasis was obtained with a brief period of local pressure and bipolar monopolar electrocautery. The subcutaneous layer was then reapproximated using some 4-0 Vicryl suture, and the skin edges were reapproximated using some 5 0 Prolene suture. The wound was then infiltrated with some 1% lidocaine with epinephrine postop pain control. A sterile dressing and a short dorsal splint allowing for active flexion and extension of the digits was applied. The patient appears to have tolerated the procedure well and with no complications. All digits were well vascularized conclusion of the case.
--- NOTE | 2023-04-23 13:12 | MHC.SHP ---
Pre-Procedural Eval Section A Date of Service: 04/23/23 The patient is an INPATIENT: No Changes since office visit: No Cold of Flu in the past 2 weeks, No New Medical Problems, No Changes in Medication and No Patient answered all questions The History & Physical has been completed within 30 days and I have reviewed it.: Yes Section B Chief Complaint: Unspecified fx of the lower end of right radius Allergies: Allergies Allergy/AdvReac Type Severity Reaction Status Date / Time Codeine Sulfate Allergy Severe Anaphylaxis Verified 04/22/23 08:28 Antihistamine Allergy Intermediate Shakiness Verified 04/22/23 08:28 egg Allergy Intermediate Heartburn Verified 04/22/23 08:28 Sulfa (Sulfonamide Allergy Intermediate RASH Verified 04/22/23 08:28 Antibiotics) [SULFA (SULFONAMIDE ANTIBIOTICS)] diphenhydramine Allergy sweats, Verified 04/22/23 08:28 [From Benadryl] palpitation Plan I have reviewed the history and physical and performed a pertinent physical examination on my patient. No changes have occurred unless specified. Time Spent With Patient Time: Total time managing care of this patient today ____ minutes.
--- NOTE | 2023-04-23 13:30 | P.CONAN_ITS ---
[facility] Active Problems Active Problems: All Active Problems (Updated 04/22/23 @ 08:54 by Jairon Andrew) Fracture of right distal radius (Acute) Sinusitis (Acute) Headache (Acute) Vitamin D deficiency (Acute) 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 (Acute) Drug-induced diarrhea (Acute) Hypomagnesemia (Acute) Trochanteric bursitis of both hips (Acute) Other osteoporosis without current pathological fracture (Acute) Systemic lupus erythematosus (Acute) Anemia (Acute) Poor balance (Acute) Acute hyponatremia (Acute) Dysuria (Acute) Greater trochanteric pain syndrome of both lower extremities (Acute) Lupus (Acute) Depression with anxiety (Acute) GERD (gastroesophageal reflux disease) (Acute) Irritable bowel syndrome with both constipation and diarrhea (Acute) Past Medical History Medical History CVA (cerebral vascular accident) Depression with anxiety Diverticulitis GERD (gastroesophageal reflux disease) HTN (hypertension), benign Hypertension Irritable bowel syndrome with both constipation and diarrhea Lupus Positive colorectal cancer screening using Cologuard test Tubular adenoma of colon Vertigo Family History Family History Father CAD (coronary artery disease) Maternal Grandmother HTN (hypertension), benign Father No problems noted. Mother Hypertension Asthma COPD (chronic obstructive pulmonary disease) Family history of problems with anesthesia: No Surgical History Surgical History History of cholecystectomy Hx of colonoscopy History of Problems with Anesthesia: No Social History Social History (Updated 04/22/23 @ 08:32 by DARYL Cabrera) Household Members: None Household Members Other:: 1 Housing: House Do you presently have visiting nurse or other home services: No Alcohol intake: never Patient Tobacco Use Status: Former Tobacco user Quit Date: 1991 Tobacco use type: Cigarette Years Smoked: quit greater than 10 years ago Second Hand Smoke Exposure: No Use of substances other than those prescribed or required for medical reasons: No Are you DNR?: No Advance Directives: No Advance Directives Information Provided: Yes Advance Directives on File: No service: No Current occupational status: retired 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, 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 Meds Allergies Allergy/AdvReac Type Severity Reaction Status Date / Time Codeine Sulfate Allergy Severe Anaphylaxis Verified 04/22/23 08:28 Antihistamine Allergy Intermediate Shakiness Verified 04/22/23 08:28 egg Allergy Intermediate Heartburn Verified 04/22/23 08:28 Sulfa (Sulfonamide Allergy Intermediate RASH Verified 04/22/23 08:28 Antibiotics) [SULFA (SULFONAMIDE ANTIBIOTICS)] diphenhydramine Allergy sweats, Verified 04/22/23 08:28 [From Benadryl] palpitation Active Medications: Current Medications Cefazolin Sodium/Dextrose (Ancef) 2 gm in 50 mls @ 100 mls/hr IV PREOP ONE Stop: 04/23/23 13:49 Home Medications Medication Instructions Recorded Confirmed Last Taken Type fluticasone propionate 50 1 spray intranasal DAILY PRN 08/08/20 04/22/23 05/21/21 History mcg/actuation nasal Allergic Symptoms spray,suspension albuterol sulfate 90 mcg/actuation 2 puff inhalation Q4-6H PRN 10/22/21 04/22/23 Unknown History aerosol inhaler (Ventolin HFA) Respiratory Distress acetaminophen 500 mg tablet 1,000 mg PO Q6H PRN Pain 07/24/22 04/22/23 Unknown History (Tylenol Extra Strength) aspirin 81 mg tablet,delayed 81 mg PO DAILY 07/24/22 04/22/23 04/04/23 History release (Adult Low Dose Aspirin) alendronate 70 mg tablet 1 tab PO FR@0600 10/24/22 04/22/23 04/03/23 History carvedilol 25 mg tablet 1 tab PO BID 10/24/22 04/22/23 04/04/23 History lisinopril 20 mg tablet 1 tab PO DAILY 10/24/22 04/22/23 04/04/23 History magnesium chloride 71.5 mg 1 tab PO DAILY 10/24/22 04/22/23 04/04/23 History (magnesium chloride) tablet,delayed release (Slow-Mag) paroxetine HCl 30 mg tablet 1 tab PO BEDTIME 10/24/22 04/22/23 04/03/23 History buspirone 10 mg tablet 10 mg PO BID 04/04/23 04/22/23 04/04/23 History Exam Exam Date and Time: April 23, 2023 1330 Height,Weight and Vital Signs: Height 4 ft 11 in Weight 148 lb Last Vital Signs Temp 98.1 F 04/23/23 11:58 Pulse 74 04/23/23 11:58 Resp 16 04/23/23 11:58 BP 135/85 04/23/23 11:58 Pulse Ox 98 04/23/23 11:58 O2 Del Method Room Air 04/23/23 11:58 Airway Mallampati Class: II TM Dist: >3cm Neck ROM: Full Denture: Upper and Lower Loose/Missing/Broken Teeth: Yes Assessment and Plan Assessment Anesthesia Assessment: Anesthesia Plan Discussed and Chart Reviewed Final Anesthetic Review Family History of Problems with Anesthesia: No History of Problems with Anesthesia: No NPO: Yes ASA Class: III Final Preanesthetic Review: No Changes in Pt Med Stat, Meds/Allgs Chart Reviewed, Consent Obtained/Reviewed and Anes Risks/Benef Reviewed Patient Risk: Intermediate Procedure Risk: Low Anesthetic Plan Anesthetic Plan: GA Disposition: Standard PACU
== END 2023-04-23 15:58 | disposition home or self-care (01) ==
PROVIDERS: PCP Internal Medicine; Visit Provider Orthopaedic Surgery
PROC: (CPT 25608; principal; 2023-04-23 13:00)
DX: S52.501A Unspecified fracture of the lower end of right radius, initial encounter for closed fracture (principal); R20.0 Anesthesia of skin; R20.2 Paresthesia of skin; W01.0XXA Fall on same level from slipping, tripping and stumbling without subsequent striking against object, initial encounter; Y93.H2 Activity, gardening and landscaping; Y92.9 Unspecified place or not applicable; Y99.8 Other external cause status; F41.8 Other specified anxiety disorders; I10 Essential (primary) hypertension; M32.9 Systemic lupus erythematosus, unspecified; R42 Dizziness and giddiness; Z79.82 Long term (current) use of aspirin; Z79.51 Long term (current) use of inhaled steroids; Z79.899 Other long term (current) drug therapy; Z88.2 Allergy status to sulfonamides; Z88.8 Allergy status to other drugs, medicaments and biological substances; Z86.73 Personal history of transient ischemic attack (TIA), and cerebral infarction without residual deficits; Z87.891 Personal history of nicotine dependence
CPT/HCPCS: 25608; C1713; C1769; J0690; J2405; J2795; J3010

== ENCOUNTER 2023-05-06 08:11 | Outpatient (REF) | payer OTHER, SELFPAY ==
--- NOTE | ~2023-05-06 | XR_ITS ---
EXAMINATION: XR WRIST, RIGHT CLINICAL INFORMATION: Right wrist pain COMPARISON: 04/16/2023 TECHNIQUE: PA, lateral, and oblique views of the right wrist. FINDINGS: Volar plate and screw fixation of the distal radius fracture. Portions of the fracture line remain readily visible. Avulsed fracture of the ulnar styloid. 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 XR/XR wrist RT min 3V IMPRESSION: Incomplete healing of the distal radius fracture.
== END 2023-05-06 08:12 | disposition home or self-care (01) ==
LOC: HO.HOSX 08:11
PROVIDERS: Visit Provider Orthopaedic Surgery
DX: S52.501D Unspecified fracture of the lower end of right radius, subsequent encounter for closed fracture with routine healing (principal); S52.611D Displaced fracture of right ulna styloid process, subsequent encounter for closed fracture with routine healing
CPT/HCPCS: 73110

== ENCOUNTER 2023-05-27 11:17 | Outpatient (REF) | payer OTHER, MEDICARE, SELFPAY ==
--- NOTE | ~2023-05-27 | XR_ITS ---
EXAMINATION: XR WRIST, RIGHT CLINICAL INFORMATION: Pain in the right wrist COMPARISON: 05/06/2023 TECHNIQUE: PA, lateral, and oblique views of the right wrist. FINDINGS: Patient is status post fracture with wall or plate and screws fixation placement in the distal radius without interval change in position of hardware. Fracture line is still visible. There is an avulsion of ulnar styloid. There is diffuse osteopenia and changes of osteoarthritis in the first carpometacarpal joint with exuberant spurs formation. There are changes of osteoarthritis in the first-third metacarpophalangeal joints. There are no new fractures soft tissues are unremarkable. XR/XR wrist RT min 3V IMPRESSION: No interval change. Diffuse osteopenia and changes of osteoarthritis in the first-third metacarpophalangeal joints and first carpometacarpal joint. Postsurgical changes with stable hardware position. Fracture line is still visible
== END 2023-05-27 11:18 | disposition home or self-care (01) ==
LOC: HO.HOSX 11:17
PROVIDERS: Visit Provider Orthopaedic Surgery
DX: S52.501D Unspecified fracture of the lower end of right radius, subsequent encounter for closed fracture with routine healing (principal); S52.611D Displaced fracture of right ulna styloid process, subsequent encounter for closed fracture with routine healing
CPT/HCPCS: 73110

== ENCOUNTER 2023-05-27 12:42 | Outpatient (AMB) | payer OTHER, SELFPAY ==
--- NOTE | 2023-05-27 13:26 | MHC.OFFVIS ---
Intake Intake Visit Reasons: PO-Unspecified fx of the lower RT radius w/Xrays Intake Note: Renata is a 72 year old? 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 female who presents today for a post operative appointment s/p Right Distal Radius Fx 04/23/23 ROM check. States she has been working on her ROM at home with some improvement. States she at times has sharp shooting pain to her arm. Allergies Codeine Sulfate Allergy (Severe, Verified 05/27/23 13:31) Anaphylaxis Antihistamine Allergy (Intermediate, Verified 05/27/23 13:31) Shakiness egg Allergy (Intermediate, Verified 05/27/23 13:31) Heartburn Sulfa (Sulfonamide Antibiotics) [SULFA (SULFONAMIDE ANTIBIOTICS)] Allergy (Intermediate, Verified 05/27/23 13:31) RASH diphenhydramine [From Benadryl] Allergy (Verified 05/27/23 13:31) sweats, palpitation HPI PO-Unspecified fx of the lower RT radius w/Xrays HPI Details Renata is a 72 year old right hand dominant woman who presents S/P right distal radius ORIF, DOS: 04/23/23. She says she is doing well and has been working on ROM exercises at home. She complains of an occasional pain in the dorsum of her hand and wrist. and says she has pain in her thumb if she moves it around too much. She says she has a dog at home but is able to keep her wrist protected. PENDING SALE TO [facility] Medical History CVA (cerebral vascular accident) Depression with anxiety Diverticulitis Dysthymia GERD (gastroesophageal reflux disease) HTN (hypertension), benign Hypertension Irritable bowel syndrome with both constipation and diarrhea Lupus Panic disorder [episodic paroxysmal anxiety] Positive colorectal cancer screening using Cologuard test Tubular adenoma of colon Vertigo Surgical History History of cholecystectomy Hx of colonoscopy Family History Father CAD (coronary artery disease) Maternal Grandmother HTN (hypertension), benign Father No problems noted. 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 She can make a fist and extend all her digits Nearly symmetrical pronosupination Wrist flexion: ~45 degrees Wrist extension: ~45 degrees No tenderness at the fracture site. Sensation is intact to the tips of all digits Cap refill is brisk Her swelling has resolved Radiographs: 3 views of the right wrist were taken and viewed by me today in clinic. They show a right distal radius fracture with satisfactory fracture alignment and position of all implants, with some evidence of interval bony healing. There is also an ulnar styloid fracture, minimally displaced. 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 Psych Appearance: grossly normal Affect: normal affect Attitude: cooperative Assessment & Plan Assessment & Plan (1) Fracture of right distal radius: Code(s): S52.501A - Unspecified fracture of the lower end of right radius, initial encounter for closed fracture (2) Fracture of right ulnar styloid: Code(s): S52.611A - Displaced fracture of right ulna styloid process, initial encounter for closed fracture Plan Assessment & Plan: 1. Right Distal radius fracture, comminuted, intra-articular S/P ORIF, DOS: 04/23/23 DOI: 04/15/23 2. Right ulnar styloid fracture, minimally displaced This has been managed non-operatively The patient appears to be doing well post-operatively I discussed the importance of activity modifications, she should use her hand for light-medium weight activities. She is still to avoid any heavy activities for the next 4 weeks She will continue to work on ROM exercises at home I ordered OT hand therapy to work on wrist ROM She will discontinue her wrist splint at this time. She may continue to wear her splint when out of the house with activities prone to falling for the next 2 weeks. She will follow up in 4-5 weeks for a ROM check Scribed for Victorina Desai MD by Hudson Navarro, health care / medical job titles, on 05/06/23 at 9:30 AM, EST. Orders: Orders XR wrist RT min 3V Today M25.531 - Pain in right wrist OT Evaluation and Treatment Today S52.501A - Unspecified fracture of the lower end of right radius, initial encounter for closed fracture, S52.611A - Displaced fracture of right ulna styloid process, initial encounter for closed fracture Coding Level of Care Code Global (91960) Diagnoses Fracture of right distal radius S52.501A Fracture of right ulnar styloid S52.611A
== END 2023-05-27 14:09 | disposition home or self-care (01) ==
PROVIDERS: PCP Internal Medicine; Visit Provider Orthopaedic Surgery
DX: S52.501A Unspecified fracture of the lower end of right radius, initial encounter for closed fracture (principal); S52.611A Displaced fracture of right ulna styloid process, initial encounter for closed fracture
CPT/HCPCS: 99024

== ENCOUNTER 2023-05-28 07:39 | Outpatient (REF) | payer OTHER, SELFPAY ==
[2023-05-28 08:06] LABS: MANUAL DIFF FLAG NO
[2023-05-28 08:50] LABS: Basophils Absolute Auto 0.1 X10*3/uL (0.0-0.2); Eosinophils Absolute Auto 0.2 X10*3/uL (0.0-0.4); Eosinophils Percent Auto 3.4 % (0-4); Hematocrit 34.1 % (37.0-47.0); Hemoglobin 11.1 g/dl (12.0-16.0); Imm Gran Abs Auto 0.01 X10*3/uL (0.00-0.03); Imm Gran Pct Auto 0.2 % (0.0-0.4); Lymphocytes Absolute Auto 1.7 X10*3/uL (1.2-4.9); Lymphocytes Percent Auto 34.6 % (20-40); Mean Corpuscular HGB Conc 32.6 g/dl (31.0-35.0); Mean Corpuscular Hemoglobin 27.8 pg (27.0-33.0); Mean Corpuscular Volume 85.5 fL (80.0-98.0); Mean Platelet Volume 9.5 fL (9.4-12.3); Monocytes Absolute Auto 0.4 X10*3/uL (0.1-1.2); Monocytes Percent Auto 8.4 % (2-11); Neutrophils Absolute Auto 2.6 x10*3/uL (2.0-8.3); Neutrophils Percent Auto 52.4 % (45-73); Platelet Count 291 X10*3/uL (160-400); Red Blood Count 3.99 X10*6/uL (4.20-5.50); Red Cell Distribution Width 16.4 % (11.0-16.0)
[2023-05-28 09:17] LABS: Alanine Aminotransferase 9 U/L (0-31); Albumin Level 4.1 g/dL (3.5-5.0); Alkaline Phosphatase 76 U/L (39-117); Anion Gap 17 (12-20); Aspartate Amino Transferase 15 U/L (5-31); Bilirubin Total 0.3 mg/dL (0.0-1.0); Blood Urea Nitrogen 10 mg/dL (9-16); C Reactive Protein < 0.10 mg/dL (< or = 0.50); Carbon Dioxide 21 mmol/L (22-29); Chloride 104 mmol/L (96-108); Estimated Glomerular Filt Rate 60; Glucose Random 95 mg/dL (60-115); Potassium 3.9 mmol/L (3.3-5.1); Sodium 138 mmol/L (135-145)
[2023-05-28 09:28] LABS: Erythrocyte Sedimentation Rate 14 MM/HR (0-20)
[2023-06-01 16:04] LABS: Anti DNA DS Antibody <1 IU/mL
== END 2023-05-28 07:40 | disposition home or self-care (01) ==
LOC: HO.LAB 07:39
PROVIDERS: PCP Internal Medicine; Visit Provider Student in an Organized Health Care Education/Training Program
DX: M32.9 Systemic lupus erythematosus, unspecified (principal)
CPT/HCPCS: 36415; 80053; 85025; 85652; 86140; 86225

== ENCOUNTER 2023-06-01 08:25 | Outpatient (REF) | payer OTHER, SELFPAY ==
[2023-06-01 08:43] LABS: Appearance Urine Clear; Color Urine Yellow; Glucose Urine UA Negative (Negative); Leukocyte Esterase Urine Negative (Negative); Nitrite Urine Negative (Negative); PH 6.5 (5.0-9.0); Urine Blood Negative (Negative); Urine Ketones Negative (Negative); Urine Protein Negative (Neg-Trace)
[2023-06-01 08:45] LABS: Bacteria Urine None Seen (None Seen); Hyaline Casts Urine 0-2 /LPF (0-2); RBC Urine 0-2 /HPF (0-2); Squamous Epithelial Cell Urine 0-2 /HPF (0-2); WBC Urine 0-5 /HPF (0-5)
[2023-06-01 09:30] LABS: Creatinine Urine 97.92 mg/dL; Total Protein Urine Random < 7 mg/dL (<12)
== END 2023-06-01 08:26 | disposition home or self-care (01) ==
LOC: HO.LNP 08:25
PROVIDERS: Visit Provider Student in an Organized Health Care Education/Training Program
DX: M32.9 Systemic lupus erythematosus, unspecified (principal)
CPT/HCPCS: 81001; 84156

== ENCOUNTER 2023-06-03 12:26 | Outpatient (AMB) | payer OTHER, SELFPAY ==
--- NOTE | 2023-06-03 12:04 | A.OFFPSYCH_ITS ---
Intake Intake Visit Reasons: Depression Allergies Codeine Sulfate Allergy (Severe, Verified 06/04/23 07:57) Anaphylaxis Antihistamine Allergy (Intermediate, Verified 06/04/23 07:57) Shakiness egg Allergy (Intermediate, Verified 06/04/23 07:57) Heartburn Sulfa (Sulfonamide Antibiotics) [SULFA (SULFONAMIDE ANTIBIOTICS)] Allergy (Intermediate, Verified 06/04/23 07:57) RASH diphenhydramine [From Benadryl] Allergy (Verified 06/04/23 07:57) sweats, palpitation Medication List - Last Reconciled 06/03/23 by Thierry Moraes MD acetaminophen (Tylenol Extra Strength) 1,000 mg PO Q6H PRN albuterol sulfate 90 mcg/actuation (Ventolin HFA) 2 puffs inhalation Q4-6H PRN alendronate 1 tab PO FR@0600 amitriptyline 10 mg PO BEDTIME amlodipine 5 mg See Protocol PO DAILY aspirin (Adult Low Dose Aspirin) 81 mg PO DAILY atorvastatin 40 mg PO BEDTIME buspirone 10 mg PO BID carvedilol 1 tab PO BID chlordiazepoxide HCl 5 mg PO TID PRN fluticasone propionate 50 mcg/actuation 1 spray intranasal DAILY PRN lisinopril 1 tab PO DAILY magnesium chloride (Slow-Mag) 1 tab PO DAILY omeprazole 1 cap PO BID oxycodone-acetaminophen 5-325 mg 1 - 2 tabs PO Q6H PRN paroxetine HCl 30 mg PO BEDTIME HPI- Psychiatric Chief Complaint: Depression HPI Narrative: The patient has generally been under increased stress since the of her mother and later a basilar artery CVA. Patient recently had a fall while weeding went to the emergency room found to have fracture. Has been on Paxil amitriptyline BuSpar Denies any change in balance problems no orthostatic changes noted. She is feeling more stable particularly since a relative moved into an apartment in her house which takes away a lot of financial stress Patient has been seeing rheumatology and has been diagnosed with mild systemic lupus. She also had been noted to have a recent GI bleed questionable etiology and did have a blood transfusion. There is no evidence of GI bleed on endoscopy Although patient had recent radial ulnar fracture and is wearing splint she has generally regrouped feeling okay Past Psychiatric History: Patient has chronic history of panic somatic preoccupations mild depressive episodes Mental Status Exam Mental Status Exam Patient Appearance: Well Grooomed Patient Orientation: Person, Place, Time and Situation Level of Consciousness: Awake Patient Behavior: Appropriate Mood Description: Appropriate and Apprehensive Affect Description: Appropriate and Apprehensive Patient Cognition Impaired: No Speech Pattern: Clear Hallucinations: None Delusions: Not Present Thought Process: Intact and Rumination Thought Content: positive for Preoccupation, positive for Hypochondriasis, negative for Suicidal Ideation or negative for Homicidal Ideation Judgement: Good Judgement and Insight: Some preoccupation with allergy type symptoms Assessment and Plan Assessment & Plan (1) Panic disorder [episodic paroxysmal anxiety]: Status: Acute Code(s): F41.0 - Panic disorder [episodic paroxysmal anxiety] (2) Dysthymia: Status: Acute Code(s): F34.1 - Dysthymic disorder (3) Lupus: Status: Acute Code(s): M32.9 - Systemic lupus erythematosus, unspecified Plan Hematocrit and chemistries reviewed hematocrit appears stable no hyponatremia noted. Because of fall while leading discussed lowering BuSpar to 10 b.i.d. and Librium had been lowered prior to 5 mg twice a day as needed. Patient has long- term been on Librium feels lot of anxiety at the prospect of change and is on low-dose her gait appears unremarkable no orthostasis noted when blood pressure taken sitting and standing . Patient has been going to the [facility] and getting regular exercise appropriate for her age and fitness Patient in general feels better than when previously Jaime in spite of recent fracture continue plan of care no orthostasis noted patient does not feel that current medications are causing any imbalance she has had physical therapy PHQ-9 12 LULÚ 11 continue Paxil 30 mg consider L methyl folate for augmentation Counseling and coordination of Care Pt. Self Management counseling: Breathing and Cognitive restructuring Details-Self Mgmt counseling: Issues chief related to managing stressors Medication management counseling: Effectiveness and Side effects Details: I spent [37] minutes reviewing the record, seeing the patient and documenting in the medical record. Counseling provided to the patient/caregiver as outlined below. Addressed patient/caregiver concerns regarding current medication regime including effective adherence. Addressed patient/caregiver concerns regarding diagnosis and prognosis including accuracy of diagnosis, prognosis over time, impact of diagnosis. Addressed patient/caregiver concerns regarding impact of recent stressors. [facility] Medical History (Updated 06/04/23 @ 08:28 by Bill Sherwood MD) CVA (cerebral vascular accident) Depression with anxiety Diverticulitis Dysthymia GERD (gastroesophageal reflux disease) HTN (hypertension), benign Hypertension Irritable bowel syndrome with both constipation and diarrhea Lupus Panic disorder [episodic paroxysmal anxiety] Positive colorectal cancer screening using Cologuard test Tubular adenoma of colon Vertigo Surgical History H/O wrist surgery History of cholecystectomy Hx of colonoscopy Family History Father CAD (coronary artery disease) Maternal Grandmother HTN (hypertension), benign Father No problems noted. 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 The mother is she has a brother with PTSD family history of depression She never no children Substance History: none Trauma History: NA Coding Level of Care Code Est Pt Level 3 (77361) Therapy 30m w/E&M (79013) Diagnoses Panic disorder [episodic paroxysmal anxiety] F41.0 Dysthymia F34.1 Lupus M32.9
== END 2023-06-03 12:27 | disposition home or self-care (01) ==
LOC: HO.HOP 12:26
PROVIDERS: PCP Internal Medicine; Visit Provider Psychiatry & Neurology Psychiatry
DX: F41.0 Panic disorder [episodic paroxysmal anxiety] (principal); F34.1 Dysthymic disorder; M32.9 Systemic lupus erythematosus, unspecified
CPT/HCPCS: 90833; 99213

== ENCOUNTER → 2023-06-03 12:26 | Outpatient (BNVA) | payer OTHER, SELFPAY | PROVIDERS: PCP Internal Medicine; Visit Provider Psychiatry & Neurology Psychiatry | DX: F41.0 Panic disorder [episodic paroxysmal anxiety] (principal); F34.1 Dysthymic disorder; M32.9 Systemic lupus erythematosus, unspecified | CPT/HCPCS: 90833; 99212 ==

== ENCOUNTER 2023-06-04 07:44 | Outpatient (AMB) | payer OTHER, SELFPAY ==
[2023-06-04 07:50] VITALS: BP 126/70; PULSE 79; O2SAT 95
--- NOTE | 2023-06-04 07:50 | A.OFFVIS_ITS ---
Intake Vital Signs 06/04/23 07:50 Weight 149 lb 11.102 oz BP 126/70 Blood Pressure Location Rt brachial Position Sitting Pulse 79 Pulse Source Pulse Oximeter Pulse Oximetry (%) 95 Oxygen Delivery Method Room Air Intake Visit Reasons: SLE Intake Note: Pt presents as a follow up for SLE. It Help Desk Associate Required: No Allergies Codeine Sulfate Allergy (Severe, Verified 06/04/23 07:57) Anaphylaxis Antihistamine Allergy (Intermediate, Verified 06/04/23 07:57) Shakiness egg Allergy (Intermediate, Verified 06/04/23 07:57) Heartburn Sulfa (Sulfonamide Antibiotics) [SULFA (SULFONAMIDE ANTIBIOTICS)] Allergy (Intermediate, Verified 06/04/23 07:57) RASH diphenhydramine [From Benadryl] Allergy (Verified 06/04/23 07:57) sweats, palpitation Medication List - Last Reconciled 06/04/23 by Bill Sherwood MD acetaminophen (Tylenol Extra Strength) 1,000 mg PO Q6H PRN albuterol sulfate 90 mcg/actuation (Ventolin HFA) 2 puffs inhalation Q4-6H PRN alendronate 1 tab PO FR@0600 amitriptyline 10 mg PO BEDTIME amlodipine 5 mg See Protocol PO DAILY aspirin (Adult Low Dose Aspirin) 81 mg PO DAILY atorvastatin 40 mg PO BEDTIME buspirone 10 mg PO BID carvedilol 1 tab PO BID chlordiazepoxide HCl 5 mg PO TID PRN fluticasone propionate 50 mcg/actuation 1 spray intranasal DAILY PRN lisinopril 1 tab PO DAILY magnesium chloride (Slow-Mag) 1 tab PO DAILY omeprazole 1 cap PO BID oxycodone-acetaminophen 5-325 mg 1 - 2 tabs PO Q6H PRN paroxetine HCl 30 mg PO BEDTIME HPI HPI Comments History of Present Illness Details This is a 72-year-old female with mild lupus (cutaneous lupus, lymphopenia, + LYRIC) presents for follow-up. Back in April patient was trying to pull a tug wheat hand she fell on her right hand and fractured her right wrist. She had ORIF for her right radius. Then the ulnar fracture was treated conservatively. She is currently wearing a wrist splint. Patient denies any new skin rashes. Denies any mouth ulcers or blood in the urine. She states that she had a couple of PRBC transfusions 2- 3 months ago. She stated that she was told she has an ongoing GI bleed but they are unable to locate it. She continues to get it some right hip pain and lower back pain radiating to her buttocks. It is generally worse with walking, improved with sitting down. She did go for physical therapy for her right hip trochanteric bursitis with some improvement but some of the symptoms returned when she stopped going to PT. She [facility]. Initial history: This is a 72-year-old female with a past medical history of cutaneous lupus, hypertension, stroke, degenerative disc disease of the spine presents for evaluation of pain. She was diagnosed with cutaneous lupus about 10 years ago when she developed a rash on her face after spending some time in the sun, she had a skin biopsy which confirmed cutaneous lupus. She was on hydroxychloroquine for about 4 years which helped her rash. It was discontinued as patient's rashes improved. She continues to have rashes intermittently on her face but they do not seem to bother her. They have not spread to other parts of her body. Her main complaint is low back pain which is worse with walking. She also has bilateral hip pain and pain on the outside of her hip. She has pain when she sleeps on her side. Patient denies Raynaud's, photosensitivity, oral or nasal ulcers, , fevers, alopecia. Patient never attempted . Denies any history of DVT or PE [facility] Medical History (Updated 06/04/23 @ 08:28 by Bill Sherwood MD) CVA (cerebral vascular accident) Depression with anxiety Diverticulitis Dysthymia GERD (gastroesophageal reflux disease) HTN (hypertension), benign Hypertension Irritable bowel syndrome with both constipation and diarrhea Lupus Panic disorder [episodic paroxysmal anxiety] Positive colorectal cancer screening using Cologuard test Tubular adenoma of colon Vertigo Surgical History H/O wrist surgery History of cholecystectomy Hx of colonoscopy Family History Father CAD (coronary artery disease) Maternal Grandmother HTN (hypertension), benign Father No problems noted. 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 Review of Systems Musc Reports back pain and Reports arthralgias Physical Exam Vital Signs: Last Vital Signs Pulse 79 06/04/23 07:50 BP 126/70 06/04/23 07:50 Pulse Ox 95 06/04/23 07:50 Oxygen Delivery Method Room Air 06/04/23 07:50 Const General: cooperative, healthy appearing, comfortable and no acute distress Nutritional Appearance: overweight Orientation/consciousness: patient oriented x3 Limitations: no limitations HEENT Head: Yes normocephalic and Yes atraumatic Resp Effort & Inspection: normal respiratory effort and able to speak in complete sentences Skin Other: Few papular lesions on her forehead, no malar rash Neuro General: patient oriented x3 Extrem Other: Mild right wrist swelling and limitation of movement. Osteoarthritic changes of her hands, no synovitis, normal nailfold capillaroscopy Assessment & Plan Assessment & Plan (1) Systemic lupus erythematosus: Comment: dx wth cuatneous lupus around 2011 was on HCQ for 4 years... DC'd since Code(s): M32.9 - Systemic lupus erythematosus, unspecified Qualifiers: Systemic lupus erythematosus type: unspecified Systemic lupus erythematosus organ involvement: unspecified Qualified Code(s): M32.9 - Systemic lupus erythematosus, unspecified Plan: This is a 72-year-old female with mild lupus (positive LYRIC, cutaneous lupus, mild lymphopenia) doing well overall. No signs of active lupus. There has been no change in her symptoms. Patient has no proteinuria, normal complements. She is not interested in restarting hydroxychloroquine. She gets intermittent anemia. She was told that she has a GI bleed but location could not be determined. She received a couple of PRBC transfusions around 2 months ago. Continue to follow-up with GI Labs before next visit in 6 months (2) Osteoporosis with pathological fracture: Code(s): M80.00XA - Age-related osteoporosis with current pathological fracture, unspecified site, initial encounter for fracture Qualifiers: Encounter type: initial encounter Qualified Code(s): M80.00XA - Age- related osteoporosis with current pathological fracture, unspecified site, initial encounter for fracture Plan: DEXA scan 08/2022 shows T-score-3.0 in the lumbar spine.? Fosamax started 3 months ago and well tolerated.? 04/24 patient had a mechanical fall on her right handed fractured her radius and ulna. Advised patient to Continue Fosamax.? Will repeat DEXA scan fall Plan I spent 29 minutes reviewing patient's chart, evaluating patient, ordering diagnostic workup, counseling patient and documenting in the chart Orders: Orders Comprehensive Met. Panel 6 Months M32.9 - Systemic lupus erythematosus, unspecified C Reactive Protein 6 Months M32.9 - Systemic lupus erythematosus, unspecified Protein Creatinine Ratio, Ur 6 Months M32.9 - Systemic lupus erythematosus, unspecified Complete Blood Count Auto Diff 6 Months M32.9 - Systemic lupus erythematosus, unspecified Erythrocyte Sedimentation Rate 6 Months M32.9 - Systemic lupus erythematosus, unspecified Complement C3 6 Months M32.9 - Systemic lupus erythematosus, unspecified Complement C4 6 Months M32.9 - Systemic lupus erythematosus, unspecified Anti DNA DS Antibody 6 Months M32.9 - Systemic lupus erythematosus, unspecified UA w Microscopic 6 Months M32.9 - Systemic lupus erythematosus, unspecified Coding Level of Care Code Est Pt Level 4 (64102) Diagnoses Systemic lupus erythematosus M32.9 Systemic lupus erythematosus type: unspecified Systemic lupus erythematosus organ involvement: unspecified Osteoporosis with pathological fracture M80.00XA Encounter type: initial encounter
== END 2023-06-04 08:12 | disposition home or self-care (01) ==
PROVIDERS: PCP Internal Medicine; Visit Provider Student in an Organized Health Care Education/Training Program
DX: M32.9 Systemic lupus erythematosus, unspecified (principal); M80.00XA Age-related osteoporosis with current pathological fracture, unspecified site, initial encounter for fracture
CPT/HCPCS: 99214

== ENCOUNTER → 2023-06-04 07:44 | Outpatient (BNVA) | payer OTHER, SELFPAY | PROVIDERS: PCP Internal Medicine; Visit Provider Student in an Organized Health Care Education/Training Program | DX: M32.9 Systemic lupus erythematosus, unspecified (principal); M80.00XA Age-related osteoporosis with current pathological fracture, unspecified site, initial encounter for fracture | CPT/HCPCS: 99212 ==

== ENCOUNTER 2023-07-01 08:01 | Outpatient (AMB) | payer OTHER, SELFPAY ==
--- NOTE | 2023-07-01 08:09 | MHC.OFFVIS ---
Intake Vital Signs 07/01/23 08:09 Weight 149 lb Intake Visit Reasons: PO-Unspecified fx of the lower RT radius w/Xrays Intake Note: Renata 72 year old? 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 female who presents today for her post operative visit for her Right Distal Radius Fx 04/23/23 ROM check. States she has not attended O.T due to insurance not covering but has been working at home on her wrist ROM. Allergies Codeine Sulfate Allergy (Severe, Verified 07/01/23 08:13) Anaphylaxis Antihistamine Allergy (Intermediate, Verified 07/01/23 08:13) Shakiness egg Allergy (Intermediate, Verified 07/01/23 08:13) Heartburn Sulfa (Sulfonamide Antibiotics) [SULFA (SULFONAMIDE ANTIBIOTICS)] Allergy (Intermediate, Verified 07/01/23 08:13) RASH diphenhydramine [From Benadryl] Allergy (Verified 07/01/23 08:13) sweats, palpitation HPI PO-Unspecified fx of the lower RT radius w/Xrays HPI Details Renata is a 72 year old right hand dominant woman who presents S/P right distal radius ORIF, DOS: 04/23/23. She says she is doing well and has been working on ROM exercises at home. She has not been able to attend OT saying this is not covered by her insurance plan. She has discontinued her wrist brace and has been using her wrist for light activities. She says she has been avoiding activities which cause her pain but she was worried she was causing harm to her wrist from overuse. She feels some numbness occasionally in the median nerve distribution of her right hand. She says this is intermittent and occasional, mostly first thing in the mornings, but she says this may also be stiffness and she is unsure. [facility] Medical History (Updated 06/04/23 @ 08:28 by Bill Sherwood MD) CVA (cerebral vascular accident) Depression with anxiety Diverticulitis Dysthymia GERD (gastroesophageal reflux disease) HTN (hypertension), benign Hypertension Irritable bowel syndrome with both constipation and diarrhea Lupus Panic disorder [episodic paroxysmal anxiety] Positive colorectal cancer screening using Cologuard test Tubular adenoma of colon Vertigo Surgical History H/O wrist surgery History of cholecystectomy Hx of colonoscopy Family History Father CAD (coronary artery disease) Maternal Grandmother HTN (hypertension), benign Father No problems noted. 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 She can make a tight fist with good strength and extend all her digits Full pronation Supination of ~70 degrees Wrist flexion: ~40 degrees Wrist extension: ~70 degrees No tenderness at the fracture site. Sensation is intact to the tips of all digits Cap refill is brisk Her swelling has resolved Radiographs: Radiographs were unavailable for review today. Psych Appearance: grossly normal Affect: normal affect Attitude: cooperative Assessment & Plan Assessment & Plan (1) Fracture of right distal radius: Code(s): S52.501A - Unspecified fracture of the lower end of right radius, initial encounter for closed fracture (2) Fracture of right ulnar styloid: Code(s): S52.611A - Displaced fracture of right ulna styloid process, initial encounter for closed fracture Plan Assessment & Plan: 1. Right Distal radius fracture, comminuted, intra-articular S/P ORIF, DOS: 04/23/23 DOI: 04/15/23 2. Right ulnar styloid fracture, minimally displaced This has been managed non-operatively The patient appears to be doing very well post-operatively Patient reportedly unable to attend OT at this time as it is not covered by her insurance plan, but she has done very well on her own to improve her range of motion. I discussed the importance of activity modifications, she should continue to use her hand for light-medium weight activities for the next few weeks, and increase as tolerated to normal activities. She will continue to work on ROM exercises at home She can follow up prn Scribed for Victorina Desai MD by Hudson Navarro, medical secretary, on 07/01/23 at 8:55 AM, EST. Coding Level of Care Code Global (52214) Diagnoses Fracture of right distal radius S52.501A Fracture of right ulnar styloid S52.611A
== END 2023-07-01 09:07 | disposition home or self-care (01) ==
PROVIDERS: PCP Internal Medicine; Visit Provider Orthopaedic Surgery
DX: S52.501A Unspecified fracture of the lower end of right radius, initial encounter for closed fracture (principal); S52.611A Displaced fracture of right ulna styloid process, initial encounter for closed fracture
CPT/HCPCS: 99024

== ENCOUNTER → 2023-07-01 08:01 | Outpatient (BNVA) | payer OTHER, SELFPAY | PROVIDERS: PCP Internal Medicine; Visit Provider Orthopaedic Surgery ==

== ENCOUNTER 2023-08-21 07:22 | Outpatient (REF) | payer OTHER, SELFPAY | END 2023-08-21 07:23 | disposition home or self-care (01) | LOC: HO.MAMMO 07:22 | PROVIDERS: PCP Internal Medicine; Visit Provider Internal Medicine | DX: Z12.31 Encounter for screening mammogram for malignant neoplasm of breast (principal) | CPT/HCPCS: 77063; 77067 ==

== ENCOUNTER → 2023-08-21 07:30 | Outpatient (BNV) | payer OTHER, SELFPAY | PROVIDERS: PCP Internal Medicine; Visit Provider Radiology Diagnostic Radiology | DX: Z12.31 Encounter for screening mammogram for malignant neoplasm of breast (principal) | CPT/HCPCS: 77063; 77067 ==

== ENCOUNTER 2023-09-04 10:24 | Outpatient (REF) | payer OTHER, SELFPAY ==
[2023-09-04 10:33] LABS: MANUAL DIFF FLAG NO
[2023-09-04 10:55] LABS: Appearance Urine Clear; Color Urine Yellow; Glucose Urine UA Negative (Negative); Leukocyte Esterase Urine Negative (Negative); Nitrite Urine Negative (Negative); Specific Gravity - Urine 1.015 (1.005-1.025); Urine Blood Negative (Negative); Urine Ketones Negative (Negative); Urine Protein Negative (Neg-Trace)
[2023-09-04 10:56] LABS: Basophils Absolute Auto 0.1 X10*3/uL (0.0-0.2); Basophils Percent Auto 1.2 % (0-2); Eosinophils Absolute Auto 0.4 X10*3/uL (0.0-0.4); Eosinophils Percent Auto 9.1 % (0-4); Hematocrit 34.8 % (37.0-47.0); Imm Gran Abs Auto 0.01 X10*3/uL (0.00-0.03); Imm Gran Pct Auto 0.2 % (0.0-0.4); Lymphocytes Absolute Auto 1.3 X10*3/uL (1.2-4.9); Mean Corpuscular HGB Conc 31.6 g/dl (31.0-35.0); Mean Corpuscular Hemoglobin 27.6 pg (27.0-33.0); Mean Corpuscular Volume 87.4 fL (80.0-98.0); Mean Platelet Volume 10.2 fL (9.4-12.3); Monocytes Absolute Auto 0.4 X10*3/uL (0.1-1.2); Monocytes Percent Auto 8.5 % (2-11); Neutrophils Absolute Auto 2.7 x10*3/uL (2.0-8.3); Platelet Count 270 X10*3/uL (160-400); Red Blood Count 3.98 X10*6/uL (4.20-5.50); Red Cell Distribution Width 13.9 % (11.0-16.0); White Blood Count 4.9 X10*3/uL (4.8-10.8)
[2023-09-04 11:15] LABS: Alanine Aminotransferase 9 U/L (0-31); Albumin Level 3.9 g/dL (3.5-5.0); Alkaline Phosphatase 67 U/L (39-117); Anion Gap 11 (12-20); Aspartate Amino Transferase 16 U/L (5-31); Bilirubin Total 0.2 mg/dL (0.0-1.0); Blood Urea Nitrogen 14 mg/dL (9-16); Calcium 8.9 mg/dL (8.4-10.2); Carbon Dioxide 28 mmol/L (22-29); Chloride 107 mmol/L (96-108); Cholesterol 147 mg/dL (<200); Estimated Glomerular Filt Rate > 60; Glucose Fasting 96 mg/dL (60-99); HDL Cholesterol 71 mg/dL (>40); LDL Cholesterol Calculated 59 mg/dL (<100); Potassium 4.2 mmol/L (3.3-5.1); Sodium 142 mmol/L (135-145); Total Protein 6.6 g/dL (6.5-8.0); Triglycerides 86 mg/dL (<150)
[2023-09-04 11:25] LABS: Magnesium 1.4 mg/dL (1.6-2.6)
[2023-09-04 11:26] LABS: Vitamin D 25-OH Total 22.6 ng/mL (>30)
== END 2023-09-04 10:25 | disposition home or self-care (01) ==
LOC: HO.LNP 10:24
PROVIDERS: Visit Provider Internal Medicine
DX: Z00.00 Encounter for general adult medical examination without abnormal findings (principal); I10 Essential (primary) hypertension; G61.82 Multifocal motor neuropathy; E78.2 Mixed hyperlipidemia; E55.9 Vitamin D deficiency, unspecified; M32.9 Systemic lupus erythematosus, unspecified
CPT/HCPCS: 80053; 80061; 81003; 82306; 83735; 85025

== ENCOUNTER 2023-09-10 12:10 | Outpatient (REF) | payer OTHER, SELFPAY ==
[2023-09-10 14:04] LABS: Magnesium 1.8 mg/dL (1.6-2.6)
== END 2023-09-10 12:11 | disposition home or self-care (01) ==
LOC: HO.LNP 12:10
PROVIDERS: Visit Provider Internal Medicine
DX: E83.42 Hypomagnesemia (principal)
CPT/HCPCS: 83735

== ENCOUNTER 2023-12-14 12:19 | Outpatient (AMB) | payer OTHER, SELFPAY ==
--- NOTE | 2023-12-14 11:36 | A.OFFPSYCH_ITS ---
Intake Intake Visit Reasons: depression Allergies Codeine Sulfate Allergy (Severe, Verified 12/22/23 08:00) Anaphylaxis Antihistamine Allergy (Intermediate, Verified 12/22/23 08:00) Shakiness egg Allergy (Intermediate, Verified 12/22/23 08:00) Heartburn Sulfa (Sulfonamide Antibiotics) [SULFA (SULFONAMIDE ANTIBIOTICS)] Allergy (Intermediate, Verified 12/22/23 08:00) RASH diphenhydramine [From Benadryl] Allergy (Verified 12/22/23 08:00) sweats, palpitation Medication List - Last Reconciled 12/14/23 by Thierry Moraes MD acetaminophen (Tylenol Extra Strength) 1,000 mg PO Q6H PRN albuterol sulfate 90 mcg/actuation (Ventolin HFA) 2 puffs inhalation Q4-6H PRN alendronate 1 tab PO FR@0600 amitriptyline 5 mg PO BEDTIME amlodipine 5 mg See Protocol PO DAILY aspirin (Adult Low Dose Aspirin) 81 mg PO DAILY atorvastatin 40 mg PO BEDTIME buspirone 10 mg PO BID carvedilol 1 tab PO BID chlordiazepoxide HCl 5 mg PO TID PRN fluticasone propionate 50 mcg/actuation 1 spray intranasal DAILY PRN lisinopril 1 tab PO DAILY magnesium chloride (Slow-Mag) 1 tab PO DAILY omeprazole 1 cap PO BID oxycodone-acetaminophen 5-325 mg 1 - 2 tabs PO Q6H PRN paroxetine HCl 30 mg PO BEDTIME HPI- Psychiatric Chief Complaint: depression HPI Narrative: Patient seen psychiatric follow-up. The patient's mood is generally been stable has some degree of chronic anxiety takes low-dose Chlordiazepoxide up to 5 mg 3 times a day has been on much higher doses in the past. Patient has not wanted to switch Has chronic somatic ideation history of panic mild dysphoria has generally done well on Paxil no further CVA history of CVA hyponatremia she is being followed medically. Have urged course of PT Past Psychiatric History: Patient has chronic history of panic somatic preoccupations mild depressive episodes Mental Status Exam Mental Status Exam Narrative: Patient cooperative casually dressed clear sensorium alert some balance problems noted intellectually intact memory. Intact speech clear normal rate rhythm thoughts logical goal directed some anxiety regarding chronic allergy symptoms feels more content come less anxious since her niece moved in with her Patient Appearance: Well Grooomed Patient Orientation: Person, Place, Time and Situation Level of Consciousness: Awake Patient Behavior: Appropriate Mood Description: Appropriate and Apprehensive Affect Description: Appropriate and Apprehensive Patient Cognition Impaired: No Speech Pattern: Clear Hallucinations: None Delusions: Not Present Thought Process: Intact and Rumination Thought Content: positive for Preoccupation, positive for Hypochondriasis, negative for Suicidal Ideation or negative for Homicidal Ideation Judgement: Good Judgement and Insight: Some preoccupation with allergy type symptoms Assessment and Plan Assessment & Plan (1) Panic disorder [episodic paroxysmal anxiety]: Status: Acute Code(s): F41.0 - Panic disorder [episodic paroxysmal anxiety] (2) Dysthymia: Status: Acute Code(s): F34.1 - Dysthymic disorder Plan Patient generally stable has chronic GI and allergy symptoms. Psychiatrically doing well no general panic mood has not been overly depressed tends to ruminate about her physical health. No recent falls. Tolerating decreased dose of Librium to 5 mg up to 3 times a day amitriptyline lowered to 5 mg bedtime felt tired the next morning to stop if still symptomatic Continue Paxil and BuSpar patient stable on current regimen Medications: Changed From amitriptyline 10 mg PO BEDTIME 90 tabs 1RF To amitriptyline 5 mg PO BEDTIME Refilled buspirone 10 mg PO BID 180 tabs 1RF paroxetine HCl 30 mg PO BEDTIME 90 tabs 1RF chlordiazepoxide HCl 5 mg PO TID PRN 90 caps 2RF anxiety Counseling and coordination of Care Medication management counseling: Effectiveness and Side effects Diagnosis and Prognosis Counseling: Impact of diagnosis on life functions and Adequacy of current interventions Details: I spent [36] minutes reviewing the record, seeing the patient and documenting in the medical record. Counseling provided to the patient/caregiver as outlined below. Addressed patient/caregiver concerns regarding current medication regime including effective adherence. Addressed patient/caregiver concerns regarding diagnosis and prognosis including accuracy of diagnosis, prognosis over time, impact of diagnosis. Addressed patient/caregiver concerns regarding impact of recent stressors. [facility] Medical History Panic disorder [episodic paroxysmal anxiety] Dysthymia Hypertension Diverticulitis CVA (cerebral vascular accident) Vertigo Tubular adenoma of colon Positive colorectal cancer screening using Cologuard test Irritable bowel syndrome with both constipation and diarrhea GERD (gastroesophageal reflux disease) Depression with anxiety HTN (hypertension), benign Lupus Surgical History H/O wrist surgery Hx of colonoscopy History of cholecystectomy Family History Father CAD (coronary artery disease) Maternal Grandmother HTN (hypertension), benign Father No problems noted. 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 The mother is she has a brother with PTSD family history of depression She never no children Substance History: none Trauma History: NA Coding Level of Care Code Est Pt Level 4 (05237) Diagnoses Panic disorder [episodic paroxysmal anxiety] F41.0 Dysthymia F34.1
== END 2023-12-14 12:20 | disposition home or self-care (01) ==
LOC: HO.HOP 12:20
PROVIDERS: PCP Internal Medicine; Visit Provider Psychiatry & Neurology Psychiatry
DX: F41.0 Panic disorder [episodic paroxysmal anxiety] (principal); F34.1 Dysthymic disorder
CPT/HCPCS: 99214

== ENCOUNTER → 2023-12-14 12:19 | Outpatient (BNVA) | payer OTHER, SELFPAY | PROVIDERS: PCP Internal Medicine; Visit Provider Psychiatry & Neurology Psychiatry | DX: F41.0 Panic disorder [episodic paroxysmal anxiety] (principal); F34.1 Dysthymic disorder | CPT/HCPCS: 99212 ==

== ENCOUNTER 2023-12-19 08:23 | Outpatient (REF) | payer OTHER, SELFPAY ==
[2023-12-19 08:39] LABS: MANUAL DIFF FLAG NO
[2023-12-19 09:02] LABS: Basophils Absolute Auto 0.1 X10*3/uL (0.0-0.2); Basophils Percent Auto 1.4 % (0-2); Eosinophils Absolute Auto 0.2 X10*3/uL (0.0-0.4); Hematocrit 35.5 % (37.0-47.0); Hemoglobin 11.6 g/dl (12.0-16.0); Imm Gran Abs Auto 0.01 X10*3/uL (0.00-0.03); Imm Gran Pct Auto 0.2 % (0.0-0.4); Lymphocytes Absolute Auto 1.1 X10*3/uL (1.2-4.9); Lymphocytes Percent Auto 24.9 % (20-40); Mean Corpuscular HGB Conc 32.7 g/dl (31.0-35.0); Mean Corpuscular Hemoglobin 27.2 pg (27.0-33.0); Mean Corpuscular Volume 83.3 fL (80.0-98.0); Mean Platelet Volume 9.3 fL (9.4-12.3); Monocytes Absolute Auto 0.3 X10*3/uL (0.1-1.2); Monocytes Percent Auto 7.8 % (2-11); Neutrophils Absolute Auto 2.6 x10*3/uL (2.0-8.3); Neutrophils Percent Auto 61.7 % (45-73); Platelet Count 280 X10*3/uL (160-400); Red Blood Count 4.26 X10*6/uL (4.20-5.50); Red Cell Distribution Width 14.9 % (11.0-16.0); White Blood Count 4.2 X10*3/uL (4.8-10.8)
[2023-12-19 09:40] LABS: Alanine Aminotransferase 10 U/L (0-31); Alkaline Phosphatase 65 U/L (39-117); Anion Gap 11 (12-20); Aspartate Amino Transferase 16 U/L (5-31); Bilirubin Total 0.4 mg/dL (0.0-1.0); Blood Urea Nitrogen 13 mg/dL (9-16); C Reactive Protein < 0.10 mg/dL (< or = 0.50); Calcium 9.2 mg/dL (8.4-10.2); Carbon Dioxide 25 mmol/L (22-29); Chloride 103 mmol/L (96-108); Estimated Glomerular Filt Rate > 60; Glucose Random 108 mg/dL (60-115); Potassium 4.4 mmol/L (3.3-5.1); Sodium 135 mmol/L (135-145); Total Protein 6.7 g/dL (6.5-8.0)
[2023-12-19 09:55] LABS: Erythrocyte Sedimentation Rate 12 MM/HR (0-20)
[2023-12-21 10:14] LABS: Complement C3 109 mg/dL (83-193)
[2023-12-21 22:58] LABS: Anti DNA DS Antibody 1 IU/mL
== END 2023-12-19 08:24 | disposition home or self-care (01) ==
LOC: HO.LAB 08:23
PROVIDERS: PCP Internal Medicine; Visit Provider Student in an Organized Health Care Education/Training Program
DX: M32.9 Systemic lupus erythematosus, unspecified (principal)
CPT/HCPCS: 36415; 80053; 85025; 85652; 86140; 86160; 86225

== ENCOUNTER 2023-12-22 07:54 | Outpatient (AMB) | payer OTHER, SELFPAY ==
--- NOTE | 2023-12-22 07:56 | MHC.OFFVIS ---
Intake Vital Signs 12/22/23 07:58 Height 5 ft Weight 150 lb 2.157 oz BMI 29.3 BP 136/74 Blood Pressure Location Rt brachial Position Sitting Pulse 67 Pulse Source Pulse Oximeter Temp 96.7 F L Temp Source Skin Pulse Oximetry (%) 95 Intake Visit Reasons: SLE Intake Note: Patient last seen 06/04/23 presents today for follow up and test results. C/o back pain; managing with Tylenol. Top Knitter Required: No Accompanied by: Self / Same As Patient Allergies Codeine Sulfate Allergy (Severe, Verified 12/22/23 08:00) Anaphylaxis Antihistamine Allergy (Intermediate, Verified 12/22/23 08:00) Shakiness egg Allergy (Intermediate, Verified 12/22/23 08:00) Heartburn Sulfa (Sulfonamide Antibiotics) [SULFA (SULFONAMIDE ANTIBIOTICS)] Allergy (Intermediate, Verified 12/22/23 08:00) RASH diphenhydramine [From Benadryl] Allergy (Verified 12/22/23 08:00) sweats, palpitation Medication List - Last Reconciled 12/22/23 by Bill Sherwood MD acetaminophen (Tylenol Extra Strength) 1,000 mg PO Q6H PRN albuterol sulfate 90 mcg/actuation (Ventolin HFA) 2 puffs inhalation Q4-6H PRN alendronate 1 tab PO FR@0600 amitriptyline 5 mg PO BEDTIME amlodipine 5 mg See Protocol PO DAILY aspirin (Adult Low Dose Aspirin) 81 mg PO DAILY atorvastatin 40 mg PO BEDTIME buspirone 10 mg PO BID carvedilol 1 tab PO BID chlordiazepoxide HCl 5 mg PO TID PRN fluticasone propionate 50 mcg/actuation 1 spray intranasal DAILY PRN lisinopril 1 tab PO DAILY magnesium chloride (Slow-Mag) 1 tab PO DAILY omeprazole 1 cap PO BID oxycodone-acetaminophen 5-325 mg 1 - 2 tabs PO Q6H PRN paroxetine HCl 30 mg PO BEDTIME HPI HPI Comments History of Present Illness Details This is a 73-year-old female with mild lupus (cutaneous lupus, lymphopenia, + LYRIC) who presents for follow-up. She is doing well overall. She states that her right wrist has healed well. She gets intermittent low back pain and neck pain especially when it is very cold and before its nose. It goes away. Sometimes uses Tylenol. She has not had any episodes of GI bleeding. Denies any fevers or rashes weight loss. Compliant with Fosamax Initial history: This is a 72-year-old female with a past medical history of cutaneous lupus, hypertension, stroke, degenerative disc disease of the spine presents for evaluation of pain. She was diagnosed with cutaneous lupus about 10 years ago when she developed a rash on her face after spending some time in the sun, she had a skin biopsy which confirmed cutaneous lupus. She was on hydroxychloroquine for about 4 years which helped her rash. It was discontinued as patient's rashes improved. She continues to have rashes intermittently on her face but they do not seem to bother her. They have not spread to other parts of her body. Her main complaint is low back pain which is worse with walking. She also has bilateral hip pain and pain on the outside of her hip. She has pain when she sleeps on her side. Patient denies Raynaud's, photosensitivity, oral or nasal ulcers, , fevers, alopecia. Patient never attempted . Denies any history of DVT or PE [facility] Medical History Panic disorder [episodic paroxysmal anxiety] Dysthymia Hypertension Diverticulitis CVA (cerebral vascular accident) Vertigo Tubular adenoma of colon Positive colorectal cancer screening using Cologuard test Irritable bowel syndrome with both constipation and diarrhea GERD (gastroesophageal reflux disease) Depression with anxiety HTN (hypertension), benign Lupus Surgical History H/O wrist surgery Hx of colonoscopy History of cholecystectomy Family History Father CAD (coronary artery disease) Maternal Grandmother HTN (hypertension), benign Father No problems noted. 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 Review of Systems Musc Reports back pain Physical Exam Vital Signs: Last Vital Signs Temp 96.7 F L 12/22/23 07:58 Pulse 67 12/22/23 07:58 BP 136/74 12/22/23 07:58 Pulse Ox 95 12/22/23 07:58 BMI result Body Mass Index 29.3 Const General: cooperative, healthy appearing, comfortable and no acute distress Nutritional Appearance: overweight Orientation/consciousness: patient oriented x3 Limitations: no limitations HEENT Head: Yes normocephalic and Yes atraumatic Resp Effort & Inspection: normal respiratory effort and able to speak in complete sentences Skin Other: Few papular lesions on her forehead, no malar rash Neuro General: patient oriented x3 Extrem Other: Osteoarthritic changes of her hands, no synovitis, normal nailfold capillaroscopy Assessment & Plan Assessment & Plan (1) Systemic lupus erythematosus: Comment: dx wt cuatneous lupus around 2011 was on HCQ for 4 years... DC'd since Code(s): M32.9 - Systemic lupus erythematosus, unspecified Qualifiers: Systemic lupus erythematosus type: unspecified Systemic lupus erythematosus organ involvement: unspecified Qualified Code(s): M32.9 - Systemic lupus erythematosus, unspecified Plan: This is a 73-year-old female with mild lupus (positive LYRIC, cutaneous lupus, mild lymphopenia) doing well overall. No signs of active systemic lupus. There has been no change in her symptoms. She continues to have few discoid lesions on her face that are not symptomatic nor progressing. Patient has no proteinuria, normal complements. She is not interested in restarting hydroxychloroquine. Will continue to monitor patient's of DMARDs. Labs before next visit in 6 months (2) Osteoporosis with pathological fracture: Code(s): M80.00XA - Age-related osteoporosis with current pathological fracture, unspecified site, initial encounter for fracture Qualifiers: Encounter type: initial encounter Qualified Code(s): M80.00XA - Age-related osteoporosis with current pathological fracture, unspecified site, initial encounter for fracture Plan: DEXA scan 08/2022 shows T-score-3.0 in the lumbar spine.? Fosamax started 03/2023 and well tolerated.? 04/24 patient had a mechanical fall on her right handed fractured her radius and ulna. Continue with Fosamax weekly. Plan to repeat DEXA 08/2023. Plan I spent 29 minutes reviewing patient's chart, evaluating patient, ordering diagnostic workup, counseling patient and documenting in the chart Orders: Orders C Reactive Protein 6 Months M32.9 - Systemic lupus erythematosus, unspecified Comprehensive Met. Panel 6 Months M32.9 - Systemic lupus erythematosus, unspecified Anti DNA DS Antibody 6 Months M32.9 - Systemic lupus erythematosus, unspecified Complement C3 6 Months M32.9 - Systemic lupus erythematosus, unspecified Complement C4 6 Months M32.9 - Systemic lupus erythematosus, unspecified Erythrocyte Sedimentation Rate 6 Months M32.9 - Systemic lupus erythematosus, unspecified Protein Creatinine Ratio, Ur 6 Months M32.9 - Systemic lupus erythematosus, unspecified UA w Microscopic 6 Months M32.9 - Systemic lupus erythematosus, unspecified Complete Blood Count Auto Diff 6 Months M32.9 - Systemic lupus erythematosus, unspecified Coding Level of Care Code Est Pt Level 4 (00691) Diagnoses Systemic lupus erythematosus, unspecified SLE type, unspecified organ involvement status M32.9 Systemic lupus erythematosus type: unspecified Systemic lupus erythematosus organ involvement: unspecified Osteoporosis with pathological fracture, initial encounter M80.00XA Encounter type: initial encounter
[2023-12-22 07:58] VITALS: BP 136/74; PULSE 67; TEMP 35.9; O2SAT 95; BMI 29.3
== END 2023-12-22 08:11 | disposition home or self-care (01) ==
PROVIDERS: PCP Internal Medicine; Visit Provider Student in an Organized Health Care Education/Training Program
DX: M32.9 Systemic lupus erythematosus, unspecified (principal); M80.00XA Age-related osteoporosis with current pathological fracture, unspecified site, initial encounter for fracture
CPT/HCPCS: 99214

== ENCOUNTER → 2023-12-22 07:54 | Outpatient (BNVA) | payer OTHER, SELFPAY | PROVIDERS: PCP Internal Medicine; Visit Provider Student in an Organized Health Care Education/Training Program | DX: M32.9 Systemic lupus erythematosus, unspecified (principal); M80.00XD Age-related osteoporosis with current pathological fracture, unspecified site, subsequent encounter for fracture with routine healing | CPT/HCPCS: 99212 ==

== ENCOUNTER 2024-01-08 11:36 | Outpatient (REF) | payer OTHER, SELFPAY ==
[2024-01-08 12:47] LABS: Alanine Aminotransferase 14 U/L (0-31); Albumin Level 4.1 g/dL (3.5-5.0); Alkaline Phosphatase 72 U/L (39-117); Aspartate Amino Transferase 17 U/L (5-31); Bilirubin Direct 0.1 mg/dL (0.0-0.5); Bilirubin Total 0.3 mg/dL (0.0-1.0); Cholesterol 166 mg/dL (<200); HDL Cholesterol 72 mg/dL (>40); LDL Cholesterol Calculated 71 mg/dL (<100); Triglycerides 115 mg/dL (<150)
[2024-01-08 16:21] LABS: Reflex LDLD? No
== END 2024-01-08 11:37 | disposition home or self-care (01) ==
LOC: HO.LNP 11:36
PROVIDERS: Visit Provider Internal Medicine
DX: E78.2 Mixed hyperlipidemia (principal)
CPT/HCPCS: 80061; 80076

== ENCOUNTER 2024-02-25 15:41 | Outpatient (REF) | payer MEDICARE, SELFPAY ==
[2024-02-25 15:49] LABS: Appearance Urine Cloudy; Color Urine Yellow; Glucose Urine UA Negative (Negative); Leukocyte Esterase Urine Moderate (2+) (Negative); Nitrite Urine Negative (Negative); PH 5.5 (5.0-9.0); Specific Gravity - Urine >= 1.030 (1.005-1.025); UMIC TRIGGER UACC YES; Urine Blood Large (3+) (Negative); Urine Ketones Trace mg/dL (Negative); Urine Protein 300 (3+) mg/dL (Neg-Trace)
[2024-02-25 16:09] LABS: Bacteria Urine None Seen (None Seen); RBC Urine >20 /HPF (0-2); Squamous Epithelial Cell Urine >20 /HPF (0-2); UACC Culture Trigger YES; WBC Urine >50 /HPF (0-5)
== END 2024-02-25 15:42 | disposition home or self-care (01) ==
LOC: HO.LNP 15:41
PROVIDERS: Visit Provider Internal Medicine
DX: N39.0 Urinary tract infection, site not specified (principal)
CPT/HCPCS: 81001; 87086

== ENCOUNTER 2024-03-08 11:28 | Outpatient (REF) | payer MEDICARE, SELFPAY | END 2024-03-08 11:29 | disposition home or self-care (01) | LOC: HO.LNP 11:28 | PROVIDERS: Visit Provider Internal Medicine | DX: N39.0 Urinary tract infection, site not specified (principal); R31.9 Hematuria, unspecified | CPT/HCPCS: 87086 ==

== ENCOUNTER 2024-04-11 10:27 | Outpatient (AMB) | payer MEDICARE, SELFPAY ==
--- NOTE | 2024-04-11 10:53 | A.OFFPSYCH_ITS ---
Intake Intake Visit Reasons: depression Allergies Codeine Sulfate Allergy (Severe, Verified 12/22/23 08:00) Anaphylaxis Antihistamine Allergy (Intermediate, Verified 12/22/23 08:00) Shakiness egg Allergy (Intermediate, Verified 12/22/23 08:00) Heartburn Sulfa (Sulfonamide Antibiotics) [SULFA (SULFONAMIDE ANTIBIOTICS)] Allergy (Intermediate, Verified 12/22/23 08:00) RASH diphenhydramine [From Benadryl] Allergy (Verified 12/22/23 08:00) sweats, palpitation Medication List - Last Reconciled 04/11/24 by Thierry Moraes MD acetaminophen (Tylenol Extra Strength) 1,000 mg PO Q6H PRN albuterol sulfate 90 mcg/actuation (Ventolin HFA) 2 puffs inhalation Q4-6H PRN alendronate 1 tab PO FR@0600 amitriptyline 10 mg PO BEDTIME amlodipine 5 mg See Protocol PO DAILY aspirin (Adult Low Dose Aspirin) 81 mg PO DAILY atorvastatin 40 mg PO BEDTIME buspirone 10 mg PO BID carvedilol 1 tab PO BID chlordiazepoxide HCl 5 mg PO TID PRN fluticasone propionate 50 mcg/actuation 1 spray intranasal DAILY PRN lisinopril 1 tab PO DAILY magnesium chloride (Slow-Mag) 1 tab PO DAILY omeprazole 1 cap PO BID paroxetine HCl 30 mg PO BEDTIME HPI- Psychiatric Chief Complaint: depression HPI Narrative: pT HAS GENERALLY BEEN DOING WELL no falls balance ok Past Psychiatric History: Patient has chronic history of panic somatic preoccupations mild depressive episodes. Patient has generally been doing okay she lives with her niece in the same building to family house. Some chronic anxiety related to chronic allergy symptoms have been encouraged visit to certified residential medication aide or ENT which she has not pursued Librium has been cut in half over time history of panic attacks and anxiety generally stable with Paxil buspirone denies over medication does have some degree of chronic balance problems week and discussed possibility of physical therapy for strengthening and balance. She is also seen by rheumatology Mental Status Exam Mental Status Exam Patient Appearance: Well Grooomed Patient Orientation: Person, Place, Time and Situation Level of Consciousness: Awake Patient Behavior: Appropriate Mood Description: Appropriate and Apprehensive Affect Description: Appropriate and Apprehensive Patient Cognition Impaired: No Speech Pattern: Clear Hallucinations: None Delusions: Not Present Thought Process: Intact and Rumination Thought Content: positive for Preoccupation, positive for Hypochondriasis, negative for Suicidal Ideation or negative for Homicidal Ideation Judgement: Good Judgement and Insight: Some preoccupation with allergy type symptoms Assessment and Plan Assessment & Plan (1) Panic disorder [episodic paroxysmal anxiety]: Status: Acute Code(s): F41.0 - Panic disorder [episodic paroxysmal anxiety] (2) Depression with anxiety: Status: Acute Code(s): F41.8 - Other specified anxiety disorders Plan Feels generally stable on a combination of Paxil buspirone low-dose amitriptyline has been quite helpful mood stable not overly depressed future oriented chronic anxiety regarding allergy symptoms generally have strongly encouraged further workup in alternative treatment including ENT and allergy. Otherwise patient is has reasonably good quality of life not overly impacted by her mental health does not feel overmedicated no evidence of abuse or tolerance continue plan of care follow-up 4 months Medications: Refilled amitriptyline 10 mg PO BEDTIME 30 tabs 3RF buspirone 10 mg PO BID 180 tabs 1RF paroxetine HCl 30 mg PO BEDTIME 90 tabs 1RF Counseling and coordination of Care Pt. Self Management counseling: General coping skills Medication management counseling: Effectiveness, Side effects and Dosing range Diagnosis and Prognosis Counseling: Adequacy of current interventions Details: I spent [30] minutes reviewing the record, seeing the patient and documenting in the medical record. Counseling provided to the patient/caregiver as outlined below. Addressed patient/caregiver concerns regarding current medication regime including effective adherence. Addressed patient/caregiver concerns regarding diagnosis and prognosis including accuracy of diagnosis, prognosis over time, impact of diagnosis. Addressed patient/caregiver concerns regarding impact of recent stressors. [facility] Medical History Panic disorder [episodic paroxysmal anxiety] Dysthymia Hypertension Diverticulitis CVA (cerebral vascular accident) Vertigo Tubular adenoma of colon Positive colorectal cancer screening using Cologuard test Irritable bowel syndrome with both constipation and diarrhea GERD (gastroesophageal reflux disease) Depression with anxiety HTN (hypertension), benign Lupus Surgical History H/O wrist surgery Hx of colonoscopy History of cholecystectomy Family History Father CAD (coronary artery disease) Maternal Grandmother HTN (hypertension), benign Father No problems noted. 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 The mother is she has a brother with PTSD family history of depression She never no children Substance History: none Trauma History: NA Coding Level of Care Code Est Pt Level 4 (48012) Diagnoses Panic disorder [episodic paroxysmal anxiety] F41.0 Depression with anxiety F41.8
== END 2024-04-11 10:58 | disposition home or self-care (01) ==
LOC: HO.HOP 10:27
PROVIDERS: PCP Internal Medicine; Visit Provider Psychiatry & Neurology Psychiatry
DX: F41.0 Panic disorder [episodic paroxysmal anxiety] (principal); F41.8 Other specified anxiety disorders
CPT/HCPCS: 99214

== ENCOUNTER → 2024-04-11 10:27 | Outpatient (BNVA) | payer MEDICARE, SELFPAY | PROVIDERS: PCP Internal Medicine; Visit Provider Psychiatry & Neurology Psychiatry | DX: F41.0 Panic disorder [episodic paroxysmal anxiety] (principal); F41.8 Other specified anxiety disorders | CPT/HCPCS: 99212 ==

== ENCOUNTER 2024-06-04 08:49 | Emergency (ER) | payer MEDICARE, SELFPAY ==
--- NOTE | ~2024-06-04 | XR_ITS ---
EXAMINATION: XR CHEST CLINICAL INFORMATION: Chest pain COMPARISON: None available. TECHNIQUE: Frontal view of the chest was obtained. FINDINGS: No focal consolidation, pulmonary edema, or pleural effusion. Normal cardiomediastinal silhouette. Hiatal hernia. XR/XR chest 1V IMPRESSION: No acute cardiopulmonary findings. Hiatal hernia.
--- NOTE | ~2024-06-04 | CT_ITS ---
EXAMINATION: CT ABDOMEN AND PELVIS WITHOUT CONTRAST CLINICAL INFORMATION: Severe abdominal pain. COMPARISON: CT scan of the abdomen and pelvis dated 10/24/2022. TECHNIQUE: Multidetector volumetric imaging was performed from the superior aspect of the liver through the pubic symphysis. Sagittal and coronal reformatted images were obtained on the technologist workstation. This CT examination was performed using dose optimization techniques as appropriate, variously including the following: *Automated exposure control *Adjustment of mA and/or kV according to patient size (this includes techniques or standardized protocols for targeted exams where dose is matched to indication/reason for exam; i.e. extremities or head) *Use of iterative reconstruction technique DLP: 420 mGy-cm. FINDINGS: LUNG BASES: Small posterior left hemidiaphragmatic defect with herniation of abdominal fat. Large retrocardiac hiatal hernia again seen, containing the gastric fundus and portions of the gastric body LIVER, GALLBLADDER, AND BILIARY TREE: The liver is normal in size, shape, and attenuation. No focal hepatic lesion on noncontrast imaging. No biliary ductal dilatation is present. The gallbladder is surgically absent PANCREAS: Unremarkable on noncontrast imaging. SPLEEN: Unremarkable. Small 0.6 cm accessory splenule seen along the inferior margin of the spleen ADRENAL GLANDS: Unremarkable on noncontrast imaging. KIDNEYS AND URETERS: The kidneys are normal in size, shape, and attenuation. No hydronephrosis, hydroureter, or calculi seen. No perinephric stranding. BLADDER: Completely decompressed and not adequately assessed.. PELVIC VISCERA: Uterus retroverted with dense exophytic calcified fibroid. No suspicious adnexal mass. GASTROINTESTINAL TRACT: Moderate sigmoid colonic diverticulosis. No acute diverticulitis. The small and large bowel are decompressed and otherwise unremarkable. The appendix is unremarkable. ABDOMINAL WALL: Tiny fat-containing umbilical hernia. LYMPH NODES, VASCULAR: Dense atherosclerotic calcifications of the aorta. Normal size of the aorta is seen. No periaortic collection. No significant abdominal or pelvic adenopathy or free fluid collection. OSSEOUS STRUCTURES: Convex left thoracolumbar scoliosis with moderate to severe degenerative disc disease at L1-L2 and L2-L3. Moderate facet arthropathy in the lower lumbar spine. CT/CT abdomen pelvis wo IV con IMPRESSION: 1. No acute intra-abdominal or pelvic findings seen to explain the patient's pain. 2. Large retrocardiac hiatal hernia again seen. 3. Moderate sigmoid colonic diverticulosis with no evidence of acute diverticulitis. 4. Calcified uterine fibroid. 5. Status post cholecystectomy.
[2024-06-04 08:52] VITALS: BP 121/62; PULSE 65; RESP 18; O2SAT 96; BMI 28.3
[2024-06-04 09:10] LABS: MANUAL DIFF FLAG NO
[2024-06-04 09:12] LABS: Basophils Absolute Auto 0.1 X10*3/uL (0.0-0.2); Basophils Percent Auto 0.7 % (0-2); Eosinophils Absolute Auto 0.1 X10*3/uL (0.0-0.4); Eosinophils Percent Auto 0.9 % (0-4); Hematocrit 35.6 % (37.0-47.0); Hemoglobin 11.9 g/dl (12.0-16.0); Imm Gran Abs Auto 0.02 X10*3/uL (0.00-0.03); Imm Gran Pct Auto 0.3 % (0.0-0.4); Lymphocytes Percent Auto 14.3 % (20-40); Mean Corpuscular HGB Conc 33.4 g/dl (31.0-35.0); Mean Corpuscular Hemoglobin 27.1 pg (27.0-33.0); Mean Corpuscular Volume 81.1 fL (80.0-98.0); Mean Platelet Volume 8.8 fL (9.4-12.3); Monocytes Absolute Auto 0.6 X10*3/uL (0.1-1.2); Monocytes Percent Auto 7.8 % (2-11); Neutrophils Absolute Auto 5.4 x10*3/uL (2.0-8.3); Platelet Count 286 X10*3/uL (160-400); Red Blood Count 4.39 X10*6/uL (4.20-5.50); Red Cell Distribution Width 14.9 % (11.0-16.0); White Blood Count 7.1 X10*3/uL (4.8-10.8)
[2024-06-04 09:14] VITALS: BP 103/61; PULSE 64; RESP 13; TEMP 36.8; O2SAT 97
--- NOTE | 2024-06-04 09:21 | ED_ITS ---
HPI - General Adult General Chief complaint: General Medical Stated complaint: diff breathing Time Seen by Provider: 06/04/24 09:11 Source: patient and family Mode of arrival: ambulatory Limitations: no limitations History of Present Illness ED Provider: DR. Freire HPI narrative: 73-year-old female presented to ER for evaluation of abdominal cramps for the past 2 weeks associated with nausea and nonbloody watery diarrhea, patient also feels shortness of breath with any exertion for the past 3-4 days, no coughing, no fever, no chills. Patient has history of anxiety. No recent travel, no lower extremity swelling or tenderness, history PE or DVT. Last time patient felt same symptoms had anemia and required blood transfusion. Patient is a former smoker. Related Data Home Medications ?Medication ?Instructions ?Recorded ?Confirmed fluticasone propionate 50 1 spray intranasal DAILY PRN 08/08/20 04/11/24 mcg/actuation nasal Allergic Symptoms spray,suspension albuterol sulfate 90 mcg/actuation 2 puff inhalation Q4-6H PRN 10/22/21 04/11/24 aerosol inhaler (Ventolin HFA) Respiratory Distress acetaminophen 500 mg tablet 1,000 mg PO Q6H PRN Pain 07/24/22 04/11/24 (Tylenol Extra Strength) aspirin 81 mg tablet,delayed 81 mg PO DAILY 07/24/22 04/11/24 release (Adult Low Dose Aspirin) alendronate 70 mg tablet 1 tab PO FR@0600 10/24/22 04/11/24 carvedilol 25 mg tablet 1 tab PO BID 10/24/22 04/11/24 lisinopril 20 mg tablet 1 tab PO DAILY 10/24/22 04/11/24 magnesium chloride 71.5 mg 1 tab PO DAILY 10/24/22 04/11/24 (magnesium chloride) tablet,delayed release (Slow-Mag) Previous Rx's ?Medication ?Instructions ?Recorded atorvastatin 40 mg tablet 40 mg PO BEDTIME #30 tabs 05/27/21 amlodipine 5 mg tablet 5 mg PO DAILY #30 tabs 10/26/22 omeprazole 40 mg capsule,delayed 1 cap PO BID #60 caps 04/06/23 release chlordiazepoxide HCl 5 mg capsule 5 mg PO TID PRN anxiety #90 caps 03/04/24 amitriptyline 10 mg tablet 10 mg PO BEDTIME #30 tabs 04/11/24 buspirone 10 mg tablet 10 mg PO BID #180 tabs 04/11/24 paroxetine HCl 30 mg tablet 30 mg PO BEDTIME #90 tabs 04/11/24 Allergies Allergy/AdvReac Type Severity Reaction Status Date / Time Codeine Sulfate Allergy Severe Anaphylaxis Verified 06/04/24 08:58 Antihistamine Allergy Intermediate Shakiness Verified 06/04/24 08:58 egg Allergy Intermediate Heartburn Verified 06/04/24 08:58 Sulfa (Sulfonamide Allergy Intermediate RASH Verified 06/04/24 08:58 Antibiotics) [SULFA (SULFONAMIDE ANTIBIOTICS)] diphenhydramine Allergy sweats, Verified 06/04/24 08:58 [From Benadryl] palpitation Review of Systems 2 Review of Systems: All other systems are reviewed and are negative Constitutional: Reports as per HPI and Reports no additional constitutional complaints Eyes: Reports as per HPI and Reports no additional eye complaints Reports system reviewed and no additional complaints, except as documented Cardiovascular: Reports as per HPI and Reports no additional cardiovascular complaints Respiratory: Reports as per HPI and Reports no additional respiratory complaints Gastrointestinal: Reports as per HPI and Reports no additional gastrointestinal complaints Genitourinary: Reports no additional female genitourinary complaints Musculoskeletal: Reports no additional musculoskeletal complaints Skin/Breast: Reports system reviewed and no additional complaints, except as docu Psychiatric: Reports no additional psychiatric complaints Endocrine: Reports no additional endocrine complaints Hematologic/Lymphatic: Reports no additional hematologic/lymphatic complaints Allergic/Immunologic: Reports no additional allergic/immunologic complaints Reports system reviewed and no additional complaints, except as documented and Reports Abnormal speech present [facility] Past Medical History Medical History Panic disorder [episodic paroxysmal anxiety] Dysthymia Hypertension Diverticulitis CVA (cerebral vascular accident) Vertigo Tubular adenoma of colon Positive colorectal cancer screening using Cologuard test Irritable bowel syndrome with both constipation and diarrhea GERD (gastroesophageal reflux disease) Depression with anxiety HTN (hypertension), benign Lupus Surgical History H/O wrist surgery Hx of colonoscopy History of cholecystectomy Family History Family History Father CAD (coronary artery disease) Maternal Grandmother HTN (hypertension), benign Father No problems noted. 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 Blood pressure elevated. Heart rate normal. Respiratory rate normal. Temperature normal. Oxygen saturation normal. Appearance: Alert. Oriented X3. No acute distress. Head: Normal external exam. Normocephalic. Atraumatic. No Wyman signs noted. No raccoon eyes noted Eyes: PERRLA. EOMI. Conjunctiva and sclera normal. Eyelids normal. ENT: TM's Normal. Pharynx normal. Uvula midline. Moist mucous membranes. No trismus noted. No drooling noted. No muffled voice noted. Neck: Normal inspection. Neck supple. FROM. No adenopathy. Thyroid Normal. No meningeal signs. No neck mass noted. CVS: Normal heart rate and rhythm. Heart sound normal. No murmurs noted. Pulses normal throughout. Respiratory: No respiratory distress. Painless inspiration. Breath sounds normal. No wheezes/rales/rhonchi noted. Chest nontender. No accessory muscle usage noted or decreased air movement noted. Abdomen: Soft and nontender. Bowel sounds normal in all 4 quadrants. No distention noted. No organomegaly noted. No visible injury noted. Back: No CVA tenderness. Full range of motion noted. Skin: Skin warm and dry. Normal skin color. Normal skin turgor. No rashes/lesions/lacerations noted. Extremities: No lower extremity edema. Extremities exhibit normal range of motion. Extremities nontender. Neuro: Oriented X 3. Cranial nerve exam: II-XII are grossly intact No motor deficit. No sensory deficit. Reflexes normal. Course Reevaluation(s) Reevaluation #1: 73-year-old female presented with 2 weeks of GI symptoms and abdominal cramps with shortness of breath for the past 3-[address] abdomen pelvis revealed hiatal hernia was no change from previous study, otherwise no evidence of colitis or intra-abdominal pathology. Patient is able to tolerate p.o. intake while in the ED, stable vital signs. Will consider outpatient follow-up with Dr. Ruiz for further evaluation of large hiatal hernia. 2. Complaining of shortness of breath low risk for pulmonary embolism with non elevated D-dimer, normal O2 sat, normal RR, normal HR, also ACS was ruled out, chest x-ray showed no intrathoracic pathology. 3. Patient's symptoms could be attributed to patient known anxiety. Time: 12:21 Medical Decision Making Differential Diagnosis Differential Diagnoses: The differential diagnosis associated with the presentation includes (ACS, pneumonia, pneumothorax, pleural effusion, pulmonary embolism, severe anemia, electrolyte derangement, hiatal hernia, anxiety, colitis.) Admission/Observation Consideration of admission/observation: Escalation of care including admission/observation considered Lab Data MDM Lab Attestation statement: I reviewed the patient's lab results. 06/04/24 09:06 06/04/24 09:06 Labs: Lab Results 06/04/24 06/04/24 06/04/24 Range/Units 09:06 09:54 10:07 WBC 7.1 (4.8-10.8) X10*3/uL RBC 4.39 (4.20-5.50) X10*6/uL Hgb 11.9 L (12.0-16.0) g/dl Hct 35.6 L (37.0-47.0) % MCV 81.1 (80.0-98.0) fL MCH 27.1 (27.0-33.0) pg MCHC 33.4 (31.0-35.0) g/dl RDW 14.9 (11.0-16.0) % Plt Count 286 (160-400) X10*3/uL MPV 8.8 L (9.4-12.3) fL Immature Gran % (Auto) 0.3 (0.0-0.4) % Neut % (Auto) 76.0 H (45-73) % Lymph % (Auto) 14.3 L (20-40) % Ector % (Auto) 7.8 (2-11) % Eos % (Auto) 0.9 (0-4) % Baso % (Auto) 0.7 (0-2) % Lymph # (Auto) 1.0 L (1.2-4.9) X10*3/uL Ector # (Auto) 0.6 (0.1-1.2) X10*3/uL Eos # (Auto) 0.1 (0.0-0.4) X10*3/uL Baso # (Auto) 0.1 (0.0-0.2) X10*3/uL Abs Immat Gran (auto) 0.02 (0.00-0.03) X10*3/uL Absolute Neuts (auto) 5.4 (2.0-8.3) x10*3/uL Absolute Nucleated RBC 0.000 (0.0-0.012) X10*3/uL Nucleated RBC % (auto) 0.0 (0.0-0.2) /100WBC D-Dimer High Sensitivty 231 NG/ML Sodium 134 L (135-145) mmol/L Potassium 3.9 (3.3-5.1) mmol/L Chloride 105 (96-108) mmol/L Carbon Dioxide 19 L (22-29) mmol/L Anion Gap 14 (12-20) BUN 12 (9-16) mg/dL Creatinine 0.89 (0.5-1.4) mg/dL Estim Creat Clear Calc 46.9 Estimated GFR > 60 Random Glucose 105 (60-115) mg/dL Calcium 8.5 D (8.4-10.2) mg/dL Total Bilirubin 0.6 (0.0-1.0) mg/dL Direct Bilirubin 0.2 (0.0-0.5) mg/dL AST 17 (5-31) U/L ALT 14 (0-31) U/L Alkaline Phosphatase 73 (39-117) U/L Troponin I High Sens 2.7 (<3.5-17.0) ng/L B-Natriuretic Peptide 16 (<100) pg/mL Total Protein 6.8 (6.5-8.0) g/dL Albumin 4.1 (3.5-5.0) g/dL Lipase 27 (8-78) U/L Stool Occult Blood NEGATIVE (NEGATIVE) Influenza Type A (PCR) NEGATIVE (Negative) Influenza Type B (PCR) NEGATIVE (Negative) RSV RNA Qual (PCR) NEGATIVE (Negative) SARS-CoV-2 RNA (RT-PCR) NEGATIVE (Negative) Independent Interpretation I performed an independent interpretation of an: Plain X-Ray (Chest: No acute intrathoracic pathology) and CT Scan (Abdomen pelvis:1. No acute intra- abdominal or pelvic findings seen to explain the patient's pain. 2. Large retrocardiac hiatal hernia again seen. 3. Moderate sigmoid colonic diverticulosis with no evidence of acute diverticulitis. 4. Calcified uterine fibroid. 5. Status post cholecystectomy. ) Radiology Impression Discussion of test interpretation with radiology: I have reviewed the radiologist's reading. Chronic Conditions Patient?s care impacted by: Other (Anxiety) Discharge Plan Discharge Clinical Impression: Hiatal hernia, Anxiety Patient Disposition: Home, Self-Care Instructions: Hiatal Hernia (ED) Prescriptions: No Action chlordiazepoxide HCl 5 mg capsule 5 mg PO TID PRN (Reason: anxiety) Qty: 90 2RF atorvastatin 40 mg Tablet 40 mg PO BEDTIME Qty: 30 0RF carvedilol 25 mg tablet 1 tab PO BID lisinopril 20 mg tablet 1 tab PO DAILY alendronate 70 mg tablet 1 tab PO FR@0600 Slow-Mag 71.5 mg tablet,delayed release (DR/EC) 1 tab PO DAILY amlodipine 5 mg Tablet 5 mg PO DAILY Qty: 30 0RF Protocol: Hold for SBP< HOLD for SBP < : 90 omeprazole 40 mg capsule,delayed release(DR/EC) 1 cap PO BID Qty: 60 0RF fluticasone propionate 50 mcg/actuation spray,suspension 1 spray intranasal DAILY PRN (Reason: Allergic Symptoms) albuterol sulfate [Ventolin HFA] 90 mcg/actuation HFA aerosol inhaler 2 puff inhalation Q4-6H PRN (Reason: Respiratory Distress) aspirin [Adult Low Dose Aspirin] 81 mg tablet,delayed release (DR/EC) 81 mg PO DAILY acetaminophen [Tylenol Extra Strength] 500 mg tablet 1,000 mg PO Q6H PRN (Reason: Pain) amitriptyline 10 mg tablet 10 mg PO BEDTIME Qty: 30 3RF buspirone 10 mg tablet 10 mg PO BID Qty: 180 1RF paroxetine HCl 30 mg tablet 30 mg PO BEDTIME Qty: 90 1RF Referrals: Arnulfo Villalba MD [Primary Care Provider] - Kyaw Ruiz MD [Physician] - Print Language: Frisian
--- NOTE | 2024-06-04 09:23 | ECG_ITS ---
Test Reason : SOB Blood Pressure : / mmHG Vent. Rate : 062 BPM Atrial Rate : 062 BPM P-R Int : 154 ms QRS Dur : 072 ms QT Int : 434 ms P-R-T Axes : 039 066 016 degrees QTc Int : 440 ms Normal sinus rhythm Cannot rule out Anterior infarct , age undetermined Abnormal ECG When compared with ECG of 28-APR-2022 12:33, Questionable change in QRS axis T wave inversion now evident in Anterior leads Referred By: Charles Freire Electronically Signed By:Dave Pope
[2024-06-04 09:30] LABS: Alanine Aminotransferase 14 U/L (0-31); Albumin Level 4.1 g/dL (3.5-5.0); Alkaline Phosphatase 73 U/L (39-117); Anion Gap 14 (12-20); Aspartate Amino Transferase 17 U/L (5-31); Bilirubin Direct 0.2 mg/dL (0.0-0.5); Bilirubin Total 0.6 mg/dL (0.0-1.0); Blood Urea Nitrogen 12 mg/dL (9-16); Calcium 8.5 mg/dL (8.4-10.2); Carbon Dioxide 19 mmol/L (22-29); Chloride 105 mmol/L (96-108); Creatinine Clr Calc Pharmacy 46.9; Estimated Glomerular Filt Rate > 60; Glucose Random 105 mg/dL (60-115); Lipase 27 U/L (8-78); Potassium 3.9 mmol/L (3.3-5.1); Sodium 134 mmol/L (135-145); Total Protein 6.8 g/dL (6.5-8.0)
[2024-06-04 09:48] LABS: Influenza A PCR NEGATIVE (Negative); Influenza B PCR NEGATIVE (Negative); Resp Syncy Virus RNA Qual PCR NEGATIVE (Negative); SARS COV2 PCR INHOUSE NEGATIVE (Negative)
[2024-06-04 10:09] LABS: OBS Int Ctl Valid YES; OBS1 NEGATIVE (NEGATIVE)
[2024-06-04 10:20] LABS: D Dimer High Sensitivity 231 NG/ML
[2024-06-04 10:34] LABS: Troponin-I High Sensitivity 2.7 ng/L (<3.5-17.0)
[2024-06-04 10:35] LABS: B Type Natriuretic Peptide 16 pg/mL (<100)
[2024-06-04 12:21] VITALS: BP 125/58; PULSE 77; RESP 16; TEMP 36.6; O2SAT 99
[2024-06-04 12:35] LABS: Appearance Urine Cloudy; Color Urine Yellow; Glucose Urine UA Negative (Negative); Leukocyte Esterase Urine Negative (Negative); Nitrite Urine Negative (Negative); PH 5.5 (5.0-9.0); UMIC TRIGGER UACC YES; Urine Blood Negative (Negative); Urine Ketones 80 mg/dL (Negative); Urine Protein 30 (1+) mg/dL (Neg-Trace)
[2024-06-04 12:58] LABS: Bacteria Urine None Seen (None Seen); RBC Urine 0-2 /HPF (0-2); WBC Urine 0-5 /HPF (0-5)
[2024-06-04 14:14] VITALS: BP 119/63; PULSE 75; RESP 15; TEMP 36.1; O2SAT 97
[2024-06-04 15:31] VITALS: BP 119/63; PULSE 75; RESP 15; TEMP 36.1; O2SAT 97
--- NOTE | 2024-06-04 15:32 | PC.NURSE ---
Pt. requesting Zofran. Dr. Freire aware and calling this into pt.'s pharmacy in addition to the Prilosec prescription.
== END 2024-06-04 15:32 | disposition home or self-care (01) ==
PROVIDERS: Emergency Provider Emergency Medicine; PCP Internal Medicine
DX: K44.9 Diaphragmatic hernia without obstruction or gangrene (principal); F41.9 Anxiety disorder, unspecified; R06.02 Shortness of breath; Z03.818 Encounter for observation for suspected exposure to other biological agents ruled out
CPT/HCPCS: 0241U; 36415; 71045; 74176; 80053; 81001; 82248; 82272; 83690; 83880; 84484; 85025; 85379; 93005; 99284

== ENCOUNTER → 2024-06-04 09:23 | Outpatient (BNV) | payer MEDICARE, SELFPAY | PROVIDERS: Emergency Provider Emergency Medicine; PCP Internal Medicine; Visit Provider Internal Medicine Cardiovascular Disease | DX: R94.31 Abnormal electrocardiogram [ECG] [EKG] (principal) | CPT/HCPCS: 93010 ==

== ENCOUNTER 2024-06-13 07:34 | Outpatient (AMB) | payer MEDICARE, SELFPAY ==
--- NOTE | 2024-06-13 07:35 | MHC.OFFVIS ---
Vital Signs 06/13/24 07:38 Height 5 ft Weight 142 lb 6.698 oz BMI 27.8 BP 115/62 Blood Pressure Location Rt brachial Position Sitting Respiration 16 Pulse 54 Pulse Source Pulse Oximeter Pulse Oximetry (%) 98 Oxygen Delivery Method Room Air Intake Visit Reasons: SLE/CM Intake Note: Patient presents for SLE. Allergies Codeine Sulfate Allergy (Severe, Verified 06/13/24 07:39) Anaphylaxis Antihistamine Allergy (Intermediate, Verified 06/13/24 07:39) Shakiness egg Allergy (Intermediate, Verified 06/13/24 07:39) Heartburn Sulfa (Sulfonamide Antibiotics) [SULFA (SULFONAMIDE ANTIBIOTICS)] Allergy (Intermediate, Verified 06/13/24 07:39) RASH diphenhydramine [From Benadryl] Allergy (Verified 06/13/24 07:39) sweats, palpitation Medication List - Last Reconciled 06/13/24 by Bill Sherwood MD acetaminophen (Tylenol Extra Strength) 1,000 mg PO Q6H PRN albuterol sulfate 90 mcg/actuation (Ventolin HFA) 2 puffs inhalation Q4-6H PRN alendronate 70 mg PO FR@0600 amitriptyline 10 mg PO BEDTIME amlodipine 5 mg See Protocol PO DAILY aspirin (Adult Low Dose Aspirin) 81 mg PO DAILY atorvastatin 40 mg PO BEDTIME buspirone 10 mg PO BID carvedilol 1 tab PO BID chlordiazepoxide HCl 5 mg PO TID PRN fluticasone propionate 50 mcg/actuation 1 spray intranasal DAILY PRN lisinopril 1 tab PO DAILY magnesium chloride (Slow-Mag) 1 tab PO DAILY omeprazole 20 mg PO BID paroxetine HCl 30 mg PO BEDTIME HPI Comments Details: This is a 73-year-old female with mild lupus (cutaneous lupus, lymphopenia, + LYRIC) who presents for follow-up. She states that she has noticed GI upset/pain associated with activity. She went to the emergency room about a week ago and had a CT scan of the chest which showed a large hiatal hernia that is unchanged from before. Has not had any new rashes or new joint pains. She remains off DMARDs. She ran out of her alendronate 3 weeks ago. She states that she does not have any GI symptoms on the days that she takes alendronate. Initial history: This is a 72-year-old female with a past medical history of cutaneous lupus, hypertension, stroke, degenerative disc disease of the spine presents for evaluation of pain. She was diagnosed with cutaneous lupus about 10 years ago when she developed a rash on her face after spending some time in the sun, she had a skin biopsy which confirmed cutaneous lupus. She was on hydroxychloroquine for about 4 years which helped her rash. It was discontinued as patient's rashes improved. She continues to have rashes intermittently on her face but they do not seem to bother her. They have not spread to other parts of her body. Her main complaint is low back pain which is worse with walking. She also has bilateral hip pain and pain on the outside of her hip. She has pain when she sleeps on her side. Patient denies Raynaud's, photosensitivity, oral or nasal ulcers, , fevers, alopecia. Patient never attempted . Denies any history of DVT or PE [facility] Medical History Panic disorder [episodic paroxysmal anxiety] Dysthymia Hypertension Diverticulitis CVA (cerebral vascular accident) Vertigo Tubular adenoma of colon Positive colorectal cancer screening using Cologuard test Irritable bowel syndrome with both constipation and diarrhea GERD (gastroesophageal reflux disease) Depression with anxiety HTN (hypertension), benign Lupus Surgical History H/O wrist surgery Hx of colonoscopy History of cholecystectomy Family History Father CAD (coronary artery disease) Maternal Grandmother HTN (hypertension), benign Father No problems noted. 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 Review of Systems GI Reports abdominal pain Physical Exam Vital Signs: Last Vital Signs Pulse 54 08/12/24 07:38 Resp 16 06/13/24 07:38 BP 115/62 06/13/24 07:38 Pulse Ox 98 06/13/24 07:38 Oxygen Delivery Method Room Air 06/13/24 07:38 BMI result Body Mass Index 27.8 Const General: cooperative, healthy appearing, comfortable and no acute distress Nutritional Appearance: overweight Orientation/consciousness: patient oriented x3 Limitations: no limitations HEENT Head: Yes normocephalic and Yes atraumatic Resp Effort & Inspection: normal respiratory effort and able to speak in complete sentences Auscultation: clear to auscultation bilaterally Cardio Rate: regular rate Skin Other: Few papular lesions on her forehead, no malar rash Neuro General: patient oriented x3 Extrem Other: Osteoarthritic changes of her hands, no synovitis, normal nailfold capillaroscopy Assessment & Plan Assessment & Plan (1) Systemic lupus erythematosus: Comment: dx [facility] cuatneous lupus around 2011 was on HCQ for 4 years... DC'd since Code(s): M32.9 - Systemic lupus erythematosus, unspecified Category: Medical Qualifiers: Systemic lupus erythematosus type: unspecified Systemic lupus erythematosus organ involvement: unspecified Qualified Code(s): M32.9 - Systemic lupus erythematosus, unspecified Plan: This is a 73-year-old female with mild lupus (positive LYRIC, cutaneous lupus, mild lymphopenia) doing well overall. No signs of active systemic lupus. There has been no change in her symptoms. She continues to have few discoid lesions on her face that are not symptomatic nor progressing. Will continue to monitor patient's of DMARDs. Labs before next visit in 6 months (2) Osteoporosis with pathological fracture: Code(s): M80.00XA - Age-related osteoporosis with current pathological fracture, unspecified site, initial encounter for fracture Category: Medical Qualifiers: Encounter type: initial encounter Qualified Code(s): M80.00XA - Age-related osteoporosis with current pathological fracture, unspecified site, initial encounter for fracture Plan: DEXA scan 08/2022 shows T-score-3.0 in the lumbar spine.? Fosamax started 03/2023 and well tolerated.? 04/24 patient had a mechanical fall on her right handed fractured her radius and ulna. Continue with Fosamax weekly. Spite patient has known hiatal hernia she has no additional GI symptoms the days she takes Fosamax. Plan to repeat DEXA 11/2023 (3) Abdominal pain: Code(s): R10.9 - Unspecified abdominal pain Category: Medical Qualifiers: Abdominal location: epigastric Qualified Code(s): R10.13 - Epigastric pain Plan: Abdominal pain with activity. Patient has a follow-up appointment with a general surgeon for her hiatal hernia as well as her PCP. Plan I spent 29 minutes reviewing patient's chart, evaluating patient, ordering diagnostic workup, counseling patient and documenting in the chart Orders: Orders Anti DNA DS Antibody 6 Months Bill Sherwood MD M32.9 - Systemic lupus erythematosus, unspecified Protein Creatinine Ratio, Ur 6 Months Bill Sherwood MD M32.9 - Systemic lupus erythematosus, unspecified UA w Microscopic 6 Months Bill Sherwood MD M32.9 - Systemic lupus erythematosus, unspecified XR DEXA axial skeleton 11/02/24 Bill Sherwood MD M80.031A - Age-related osteoporosis with current pathological fracture, right forearm, initial encounter for fracture Complement C3 6 Months Bill Sherwood MD M32.9 - Systemic lupus erythematosus, unspecified Complement C4 6 Months Bill Sherwood MD M32.9 - Systemic lupus erythematosus, unspecified C Reactive Protein 6 Months Bill Sherwood MD M32.9 - Systemic lupus erythematosus, unspecified Erythrocyte Sedimentation Rate 6 Months Bill Sherwood MD M32.9 - Systemic lupus erythematosus, unspecified Complete Blood Count Auto Diff 6 Months Bill Sherwood MD M32.9 - Systemic lupus erythematosus, unspecified Comprehensive Met. Panel 6 Months Bill Sherwood MD M32.9 - Systemic lupus erythematosus, unspecified Collagen Type I C-Telopeptide 6 Months Bill Sherwood MD M80.00XA - Age-related osteoporosis with current pathological fracture, unspecified site, initial encounter for fracture Vitamin D 25-OH (D2 and D3) 6 Months Bill Sherwood MD Z13.21 - Encounter for screening for nutritional disorder Medications: Changed From omeprazole 20 mg PO DAILY 14 caps 0RF To omeprazole 20 mg PO BID Charles Freire MD From alendronate 70 mg PO FR@0600 To alendronate Take 1 tab once weekly, 1st thing in the morning, on an empty stomach, with a large glass of water (at least 6 oz) and stay upright for 30 minutes 70 mg PO QWEEK 12 tabs 1RF Bill Sherwood MD Coding Level of Care Code Est Pt Level 4 (13799) Diagnoses Systemic lupus erythematosus, unspecified SLE type, unspecified organ involvement status M32.9 Systemic lupus erythematosus type: unspecified Systemic lupus erythematosus organ involvement: unspecified Osteoporosis with pathological fracture, initial encounter M80.00XA Encounter type: initial encounter Epigastric pain R10.13 Abdominal location: epigastric
[2024-06-13 07:38] VITALS: BP 115/62; PULSE 54; RESP 16; O2SAT 98; BMI 27.8
== END 2024-06-13 07:55 | disposition home or self-care (01) ==
PROVIDERS: PCP Internal Medicine; Visit Provider Student in an Organized Health Care Education/Training Program
DX: M32.9 Systemic lupus erythematosus, unspecified (principal); M80.00XA Age-related osteoporosis with current pathological fracture, unspecified site, initial encounter for fracture; R10.13 Epigastric pain
CPT/HCPCS: 99214

== ENCOUNTER → 2024-06-13 07:34 | Outpatient (BNVA) | payer MEDICARE, SELFPAY | PROVIDERS: PCP Internal Medicine; Visit Provider Student in an Organized Health Care Education/Training Program | DX: M32.9 Systemic lupus erythematosus, unspecified (principal); M80.00XA Age-related osteoporosis with current pathological fracture, unspecified site, initial encounter for fracture; R10.13 Epigastric pain | CPT/HCPCS: 99212 ==

== ENCOUNTER 2024-06-26 03:38 | Inpatient (IN) | payer MEDICARE, SELFPAY ==
[2024-06-26] VITALS (12 sets, daily range): BP systolic 112–163; BP diastolic 57–86; PULSE 62–95; RESP 12–32; TEMP 36.1–37.1; O2SAT 86–97; BMI 30.4
--- NOTE | ~2024-06-26 | US_ITS ---
EXAMINATION: US EXTRACRANIAL CAROTID DUPLEX, BILATERAL CLINICAL INFORMATION: History of basilar artery stroke, hyperlipidemia COMPARISON: None available. TECHNIQUE: Real-time ultrasound and Doppler techniques (integrating B-mode 2-D vascular images, Doppler spectral analysis and color-flow Doppler imaging) were utilized to interrogate the extracranial carotid arteries, the vertebral arteries and proximal subclavian arteries bilaterally. The degree of stenosis is determined by criteria similar to NASCET. FINDINGS: Right Side: 1. There is no significant atherosclerotic plaque seen in the bifurcation/proximal ICA region. 2. The common carotid artery PSV proximally is 82 cm/s and distally 68 cm/s. 3. The proximal internal carotid artery velocities are 68 cm/s systolic and 23 cm/s diastolic. 4. The proximal external carotid artery PSV is 60 cm/s. 5. The vertebral artery shows antegrade flow. 6. The subclavian artery waveforms are normal. Left Side: 1. There is no significant atherosclerotic plaque seen in the bifurcation/proximal ICA region. 2. The common carotid artery PSV proximally is 100 cm/s and distally 79 cm/s. 3. The proximal internal carotid artery velocities are 108 cm/s systolic and 36 cm/s diastolic. 4. The proximal external carotid artery PSV is 68 cm/s. 5. The vertebral artery shows antegrade flow. 6. The subclavian artery waveforms are normal. US/US carotid duplex BI IMPRESSION: 1. RIGHT: Normal right internal carotid artery without atherosclerotic plaque or hemodynamically significant stenosis. 2. LEFT: Normal left internal carotid artery without atherosclerotic plaque or hemodynamically significant stenosis. Electronically signed by: Denise Pendleton MD 06/27/2024 02:41 PM EDT
--- NOTE | ~2024-06-26 | XR_ITS ---
EXAMINATION: XR CHEST CLINICAL INFORMATION: Shortness of breath COMPARISON: Chest radiograph 06/04/2024 TECHNIQUE: Frontal view of the chest was obtained. FINDINGS: Focal airspace opacity is present in the peripheral left midlung zone and in the left lung base. No effusions or pneumothoraces. Mild biapical pleural parenchymal scarring of the lungs noted. Moderate aortic calcific atherosclerosis. Normal heart size. Diffuse osteopenia. XR/XR chest 1V IMPRESSION: Multifocal left lung pneumonia. Findings are new compared with 06/04/2024. Electronically signed by: Keanu Rene MD 06/26/2024 04:52 AM EDT
--- NOTE | 2024-06-26 03:58 | ECG_ITS ---
Test Reason : DYSPNEA Blood Pressure : / mmHG Vent. Rate : 089 BPM Atrial Rate : 089 BPM P-R Int : 156 ms QRS Dur : 070 ms QT Int : 338 ms P-R-T Axes : 032 -01 028 degrees QTc Int : 411 ms Normal sinus rhythm Cannot rule out Anterior infarct (cited on or before 04-JUN-2024) Abnormal ECG When compared with ECG of 04-JUN-2024 09:44, Questionable change in QRS axis Referred By: Jazlyn Solitario Electronically Signed By:BRITTNY VELIZ
--- NOTE | 2024-06-26 04:00 | ED.GENADULT ---
HPI - General Adult General Chief complaint: Dyspnea Stated complaint: diff breathing Time Seen by Provider: 06/26/24 03:59 Source: patient Mode of arrival: ambulatory Limitations: no limitations History of Present Illness ED Provider: Dr. Jazlyn Solitario HPI narrative: Patient comes to the emergency room complaining of shortness a breath, chest tightness, nausea and vomiting. Patient drove herself to the emergency room. Patient states that she feels like she is having an asthma exacerbation. On arrival, patient vomited. Related Data Home Medications ?Medication ?Instructions ?Recorded ?Confirmed fluticasone propionate 50 1 spray intranasal DAILY PRN 08/08/20 06/13/24 mcg/actuation nasal Allergic Symptoms spray,suspension albuterol sulfate 90 mcg/actuation 2 puff inhalation Q4-6H PRN 10/22/21 06/13/24 aerosol inhaler (Ventolin HFA) Respiratory Distress acetaminophen 500 mg tablet 1,000 mg PO Q6H PRN Pain 07/24/22 06/13/24 (Tylenol Extra Strength) aspirin 81 mg tablet,delayed 81 mg PO DAILY 07/24/22 06/13/24 release (Adult Low Dose Aspirin) carvedilol 25 mg tablet 1 tab PO BID 10/24/22 06/13/24 lisinopril 20 mg tablet 1 tab PO DAILY 10/24/22 06/13/24 magnesium chloride 71.5 mg 1 tab PO DAILY 10/24/22 06/13/24 (magnesium chloride) tablet,delayed release (Slow-Mag) omeprazole 20 mg capsule,delayed 20 mg PO BID 06/13/24 06/13/24 release Previous Rx's ?Medication ?Instructions ?Recorded atorvastatin 40 mg tablet 40 mg PO BEDTIME #30 tabs 05/27/21 amlodipine 5 mg tablet 5 mg PO DAILY #30 tabs 10/26/22 chlordiazepoxide HCl 5 mg capsule 5 mg PO TID PRN anxiety #90 caps 03/04/24 amitriptyline 10 mg tablet 10 mg PO BEDTIME #30 tabs 04/11/24 buspirone 10 mg tablet 10 mg PO BID #180 tabs 04/11/24 paroxetine HCl 30 mg tablet 30 mg PO BEDTIME #90 tabs 04/11/24 alendronate 70 mg tablet 70 mg PO QWEEK #12 tabs 06/13/24 Allergies Allergy/AdvReac Type Severity Reaction Status Date / Time Codeine Sulfate Allergy Severe Anaphylaxis Verified 06/26/24 03:50 Antihistamine Allergy Intermediate Shakiness Verified 06/26/24 03:50 egg Allergy Intermediate Heartburn Verified 06/26/24 03:50 Sulfa (Sulfonamide Allergy Intermediate RASH Verified 06/26/24 03:50 Antibiotics) [SULFA (SULFONAMIDE ANTIBIOTICS)] diphenhydramine Allergy sweats, Verified 06/26/24 03:50 [From Benadryl] palpitation Review of Systems Review of Systems: Constitutional : No Weight loss, No Fever, No Chills, No Night Sweats, No Fatigue, No Malaise ENT/Mouth : No Hearing loss, No Ear Pain, No Nasal Congestion, No Sinus Pain, No Hoarseness, No sore throat, No Rhinorrhea, No Swallowing Difficulty Eyes: No Eye Pain, No Swelling, No Redness, No Foreign Body, No Discharge, No Vision Changes Cardiovascular : Complaining of chest tightness with breathing, no Chest Pain, No SOB, No Dyspnea on Exertion, No Orthopnea, No Edema, No Palpitations Respiratory : Complaining of shortness of breath and wheezing Gastrointestinal : Complaining of nausea and vomiting No Diarrhea, No Constipation, No abdominal Pain, No Hematochezia, No Melena Genitourinary : no irregular bleeding, No Dysuria, No Urinary Frequency, No Hematuria, No Urinary Incontinence, No Urgency, No Flank Pain, No Urinary Flow Changes, No Hesitancy Musculoskeletal : No joint pain, No Myalgias, No Joint Swelling Skin : No Skin Lesions, No rash Neuro : No Weakness, No Numbness, No Paresthesias, No Loss of Consciousness, No Dizziness, No Headache Psych : No Anxiety/Panic, No Depression, No SI/HI/AH/VH, No Social Issues, Heme/Lymph: No Bruising, No Bleeding,No Lymphadenopathy Endocrine : No Polyuria, No Polydipsia, No Temperature Intolerance [facility] Past Medical History Medical History Panic disorder [episodic paroxysmal anxiety] Dysthymia Hypertension Diverticulitis CVA (cerebral vascular accident) Vertigo Tubular adenoma of colon Positive colorectal cancer screening using Cologuard test Irritable bowel syndrome with both constipation and diarrhea GERD (gastroesophageal reflux disease) Depression with anxiety HTN (hypertension), benign Lupus Surgical History H/O wrist surgery Hx of colonoscopy History of cholecystectomy Family History Family History Father CAD (coronary artery disease) Maternal Grandmother HTN (hypertension), benign Father No problems noted. Mother Hypertension Asthma COPD (chronic obstructive pulmonary disease) Social History Social History Household Members: None Household Members Other:: 1 Housing: House Do you presently have visiting nurse or other home services: No Alcohol intake: never Patient Tobacco Use Status: Former Tobacco user Tobacco use type: Cigarette Years Smoked: quit greater than 10 years ago Smoked in Last 30 Days: No Second Hand Smoke Exposure: No Use of substances other than those prescribed or required for medical reasons: No Advance Directives: Yes Advance Directives on File: Yes Advance Directives Date on File: 04/07/23 Do you have a plan to hurt others: No Plan service: No Current occupational status: retired 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 Oriented X3. No acute distress. Eyes: Pupils equal, round and reactive to light. ENT: Pharynx normal. Neck: Normal inspection. Neck supple. No lymph nodes noted. No crepitus CVS: Normal heart rate and rhythm. Pulses normal. Normal S1 and S2 Respiratory: No respiratory distress. Breath sounds normal. No Wheezing. No rales Abdomen: Soft and nontender. No rigidity. No distention. Skin: Skin warm and dry. Normal skin color. Normal skin turgor. Extremities: No lower extremity edema. No Lacerations. No Rash Neuro: Oriented X 3. No motor deficit. No sensory deficit. Moving all extremities. No slurred speech. CN 2 through 12 grossly intact Psych: calm, cooperative, normal affect Course Course Course Narrative: By the time I arrived, patient was receiving a nebulization treatment. On auscultation, patient has no wheezing at all, good air movement Patient does not seem to be tender in the abdomen on deep palpation. Patient does not nauseous. -patient receiving IV fluids, Zofran Medications Administered Discontinued Medications Generic Name Dose Route Start Last Admin Trade Name Freq PRN Reason Stop Dose Admin Albuterol Sulfate 2.5 mg 06/26/24 04:18 06/26/24 04:23 Albuterol Sulfate (0.083%) 2.5 Mg/3 Ml Vial.Neb INHALE 06/26/24 04:19 2.5 mg ONCE ONE Administration Sodium Chloride 1,000 mls @ 999 mls/hr 06/26/24 04:03 06/26/24 04:08 Ns IVCONT 06/26/24 05:03 999 mls/hr .Q1H1M ONE Administration Ondansetron HCl 4 mg 06/26/24 03:58 06/26/24 04:04 Ondansetron Hcl 4 Mg/2 Ml Vial IVPUSH 06/26/24 03:59 4 mg ONCE ONE Administration Medical Decision Making Medical Decision Making [facility] Narrative: -my interpretation of EKG, normal sinus rhythm, heart rate 89, no ST segment depression or elevation, no T-wave inversion, QTC 411 -I was informed by the patient's nurse that patient's oxygen saturation drops to 84% on room air. Improved to the mid 90s on 2 L. -my interpretation of labs: Patient's white blood cell count 10.4, normal blood gases, pCO2 36, normal chemistry, normal BNP and troponin, COVID negative -my interpretation of chest x-ray, bilateral pneumonia -patient's blood pressure stable, no fever, normal white blood cell count, lactic acid pending. At this time, sepsis is not suspected. Patient is being treated with IV fluids, ceftriaxone and azithromycin. -patient requiring oxygen, patient needs admission -I discussed the patient with Dr. Reynolds from the Medicine team Differential Diagnosis Differential Diagnoses: The differential diagnosis associated with the presentation includes (Pneumonia, asthma, panic attack) Admission/Observation Consideration of admission/observation: Escalation of care including admission/observation considered Consult Healthcare Provider Management of the patient was discussed with: Hospitalist Lab Data [facility] Lab Attestation statement: I reviewed the patient's lab results. 06/26/24 04:10 06/26/24 04:10 Labs: Lab Results 06/26/24 06/26/24 Range/Units 04:10 04:14 WBC 10.4 (4.8-10.8) X10*3/uL RBC 4.30 (4.20-5.50) X10*6/uL Hgb 11.7 L (12.0-16.0) g/dl Hct 36.1 L (37.0-47.0) % MCV 84.0 (80.0-98.0) fL MCH 27.2 (27.0-33.0) pg MCHC 32.4 (31.0-35.0) g/dl RDW 15.4 (11.0-16.0) % Plt Count 317 (160-400) X10*3/uL MPV 9.0 L (9.4-12.3) fL Immature Gran % (Auto) 0.4 (0.0-0.4) % Neut % (Auto) 82.1 H (45-73) % Lymph % (Auto) 11.6 L (20-40) % Crook % (Auto) 4.2 (2-11) % Eos % (Auto) 1.3 (0-4) % Baso % (Auto) 0.4 (0-2) % Lymph # (Auto) 1.2 (1.2-4.9) X10*3/uL Crook # (Auto) 0.4 (0.1-1.2) X10*3/uL Eos # (Auto) 0.1 (0.0-0.4) X10*3/uL Baso # (Auto) 0.0 (0.0-0.2) X10*3/uL Abs Immat Gran (auto) 0.04 H (0.00-0.03) X10*3/uL Absolute Neuts (auto) 8.5 H (2.0-8.3) x10*3/uL Absolute Nucleated RBC 0.000 (0.0-0.012) X10*3/uL Nucleated RBC % (auto) 0.0 (0.0-0.2) /100WBC VBG pH 7.43 (7.32-7.43) VBG pCO2 36 mmHg VBG pO2 57 mmHg VBG HCO3 24 (22-26) mmol/L VBG O2 Saturation 95.0 % VBG Base Excess 0.5 mmol/L Sodium 142 (135-145) mmol/L Potassium 3.9 (3.3-5.1) mmol/L Chloride 108 (96-108) mmol/L Carbon Dioxide 24 (22-29) mmol/L Anion Gap 14 (12-20) BUN 13 (9-16) mg/dL Creatinine 0.94 (0.5-1.4) mg/dL Estim Creat Clear Calc 46.0 Estimated GFR 58 Random Glucose 125 H (60-115) mg/dL Calcium 9.3 D (8.4-10.2) mg/dL Magnesium 1.5 L (1.6-2.6) mg/dL Total Bilirubin 0.2 (0.0-1.0) mg/dL Direct Bilirubin < 0.2 (0.0-0.5) mg/dL AST 17 (5-31) U/L ALT 14 (0-31) U/L Alkaline Phosphatase 68 (39-117) U/L Troponin I High Sens < 2.7 (<3.5-17.0) ng/L B-Natriuretic Peptide 83 (<100) pg/mL Total Protein 6.7 (6.5-8.0) g/dL Albumin 3.9 (3.5-5.0) g/dL Ethyl Alcohol < 10 mg/dL COVID-19 (LAURO) Negative (Negative) COVID-19 Clin Com See Note Independent Interpretation I performed an independent interpretation of an: EKG and Plain X-Ray Radiology Impression Discussion of test interpretation with radiology: I have reviewed the radiologist's reading. Radiologist Impression: Focal airspace opacity is present in the peripheral left midlung zone and in the left lung base. No effusions or pneumothoraces. Mild biapical pleural parenchymal scarring of the lungs noted. Moderate aortic calcific atherosclerosis. Normal heart size. Diffuse osteopenia. XR/XR chest 1V IMPRESSION: Multifocal left lung pneumonia. Findings are new compared with 06/04/2024 Independent Historian Clinical information obtained from an independent historian. History obtained from or confirmed by: EMS Critical Care Time Critical Care Time Critical Care Time: Yes Total Critical Care Time: 60 Attestation: I have personally provided critical care time. Time includes review of lab data, radiology results, discussion with consultants, and monitoring for potential decompensation. Intervention performed as documented. Discharge Plan Discharge Clinical Impression: Pneumonia Patient Disposition: Admitted As Inpatient Print Language: Greek
[2024-06-26] MEDS: ondansetron HCL 4 MG/2 ML VIAL IVPUSH (04:04)
[2024-06-26] MEDS: 0.9 % Sodium Chloride 1,000 ML 999 ML IVCONT (04:08)
[2024-06-26 04:15] LABS: MANUAL DIFF FLAG NO
[2024-06-26 04:16] LABS: Basophils Percent Auto 0.4 % (0-2); Eosinophils Absolute Auto 0.1 X10*3/uL (0.0-0.4); Eosinophils Percent Auto 1.3 % (0-4); Hematocrit 36.1 % (37.0-47.0); Hemoglobin 11.7 g/dl (12.0-16.0); Imm Gran Abs Auto 0.04 X10*3/uL (0.00-0.03); Imm Gran Pct Auto 0.4 % (0.0-0.4); Lymphocytes Absolute Auto 1.2 X10*3/uL (1.2-4.9); Lymphocytes Percent Auto 11.6 % (20-40); Mean Corpuscular HGB Conc 32.4 g/dl (31.0-35.0); Mean Corpuscular Hemoglobin 27.2 pg (27.0-33.0); Monocytes Absolute Auto 0.4 X10*3/uL (0.1-1.2); Monocytes Percent Auto 4.2 % (2-11); Neutrophils Absolute Auto 8.5 x10*3/uL (2.0-8.3); Neutrophils Percent Auto 82.1 % (45-73); Platelet Count 317 X10*3/uL (160-400); Red Cell Distribution Width 15.4 % (11.0-16.0); White Blood Count 10.4 X10*3/uL (4.8-10.8)
[2024-06-26 04:17] LABS: Venous Blood Gas Refer to POC result
[2024-06-26 04:19] LABS: VBG Base Excess 0.5 mmol/L; VBG HCO3 24 mmol/L (22-26); VBG pCO2 36 mmHg; VBG pH 7.43 (7.32-7.43); VBG pO2 57 mmHg
[2024-06-26] MEDS: Albuterol Sulfate (0.083%) 2.5 MG/3 ML VIAL.NEB INHALE (04:23)
[2024-06-26 04:33] LABS: Alanine Aminotransferase 14 U/L (0-31); Albumin Level 3.9 g/dL (3.5-5.0); Alkaline Phosphatase 68 U/L (39-117); Anion Gap 14 (12-20); Aspartate Amino Transferase 17 U/L (5-31); Bilirubin Direct < 0.2 mg/dL (0.0-0.5); Bilirubin Total 0.2 mg/dL (0.0-1.0); Blood Urea Nitrogen 13 mg/dL (9-16); Calcium 9.3 mg/dL (8.4-10.2); Carbon Dioxide 24 mmol/L (22-29); Chloride 108 mmol/L (96-108); Estimated Glomerular Filt Rate 58; Glucose Random 125 mg/dL (60-115); Magnesium 1.5 mg/dL (1.6-2.6); Potassium 3.9 mmol/L (3.3-5.1); Sodium 142 mmol/L (135-145); Total Protein 6.7 g/dL (6.5-8.0)
[2024-06-26 04:36] LABS: B Type Natriuretic Peptide 83 pg/mL (<100); Ethanol < 10 mg/dL
[2024-06-26 04:38] LABS: COVID-19 Test Negative (Negative); IDNOW Serial# 152EDE1D
[2024-06-26 04:45] LABS: Troponin-I High Sensitivity < 2.7 ng/L (<3.5-17.0)
[2024-06-26] MEDS: Magnesium Sulfate/D5W 1 GM/100 ML PIGGYBACK IV (05:05)
--- NOTE | 2024-06-26 05:26 | PM.IMHP ---
History of Present Illness Date of Service: 06/26/24 Chief Complaint: sob 73F PMH HTN, mood disorder, cutaneous lupus, hld, mild intermittent asthma, hiatal hernia, TIA, osteoporosis presented with sob. patient states she was feeling well day prior to presentation. on day of admission woke up in middle of night with sob and chills. denies fever, cough, chest pain. in ED started to have some nasuea and vomiting as well. cxr c/w left sided multifocal pneumonia. desaturated to 86% on room air. Review of Systems Review of Systems: Yes all other systems are reviewed and are negative [facility] Medical History Panic disorder [episodic paroxysmal anxiety] Dysthymia Hypertension Diverticulitis CVA (cerebral vascular accident) Vertigo Tubular adenoma of colon Positive colorectal cancer screening using Cologuard test Irritable bowel syndrome with both constipation and diarrhea GERD (gastroesophageal reflux disease) Depression with anxiety HTN (hypertension), benign Lupus Family History Father CAD (coronary artery disease) Maternal Grandmother HTN (hypertension), benign Father No problems noted. Mother Hypertension Asthma COPD (chronic obstructive pulmonary disease) Surgical History H/O wrist surgery Hx of colonoscopy History of cholecystectomy Social History Household Members: None Household Members Other:: 1 Housing: House Do you presently have visiting nurse or other home services: No Alcohol intake: never Patient Tobacco Use Status: Former Tobacco user Tobacco use type: Cigarette Years Smoked: quit greater than 10 years ago Smoked in Last 30 Days: No Second Hand Smoke Exposure: No Use of substances other than those prescribed or required for medical reasons: No Advance Directives: Yes Advance Directives on File: Yes Advance Directives Date on File: 04/07/23 Do you have a plan to hurt others: No Plan service: No Current occupational status: retired 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, 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 Meds Allergies Allergy/AdvReac Type Severity Reaction Status Date / Time Codeine Sulfate Allergy Severe Anaphylaxis Verified 06/26/24 03:50 Antihistamine Allergy Intermediate Shakiness Verified 06/26/24 03:50 egg Allergy Intermediate Heartburn Verified 06/26/24 03:50 Sulfa (Sulfonamide Allergy Intermediate RASH Verified 06/26/24 03:50 Antibiotics) [SULFA (SULFONAMIDE ANTIBIOTICS)] diphenhydramine Allergy sweats, Verified 06/26/24 03:50 [From Benadryl] palpitation Active Medications: Current Medications Amitriptyline HCl (Amitriptyline Hcl 10 Mg Tablet) 10 mg PO BEDTIME [facility] Amlodipine Besylate (Amlodipine Besylate 5 Mg Tablet) 5 mg PO DAILY [facility]; Protocol Atorvastatin Calcium (Atorvastatin Calcium 40 Mg Tablet) 40 mg PO BEDTIME [facility] Buspirone HCl (Buspirone Hcl 10 Mg Tablet) 10 mg PO BID [facility] Carvedilol (Carvedilol 25 Mg Tablet) 25 mg PO BID [facility]; Protocol Ceftriaxone Sodium 1 gm/ (Sodium Chloride) 50 mls @ 100 mls/hr IV ONCE ONE Stop: 06/26/24 05:26 Azithromycin 500 mg/ Sodium (Chloride) 250 mls @ 125 mls/hr IV ONCE ONE Stop: 06/26/24 06:56 Magnesium Sulfate/Dextrose (Magnesium Sulfate/D5w) 1 gm in 100 mls @ 100 mls/hr IV ONCE ONE Stop: 06/26/24 05:58 Last Admin: 06/26/24 05:05 Dose: 100 mls/hr Ceftriaxone Sodium 1 gm/ (Sodium Chloride) 50 mls @ 100 mls/hr IV Q24H [facility] Azithromycin 500 mg/ Sodium (Chloride) 250 mls @ 125 mls/hr IV Q24H [facility] Lisinopril (Lisinopril 20 Mg Tablet) 20 mg PO DAILY [facility]; Protocol Omeprazole (Omeprazole 40 Mg Capsule.Dr) 40 mg PO DAILY@0630 [facility] Home Medications ?Medication ?Instructions ?Recorded ?Confirmed ?Last Taken ?Type fluticasone propionate 50 1 spray intranasal DAILY PRN 08/08/20 06/13/24 05/21/21 History mcg/actuation nasal Allergic Symptoms spray,suspension albuterol sulfate 90 mcg/actuation 2 puff inhalation Q4-6H PRN 10/22/21 06/13/24 Unknown History aerosol inhaler (Ventolin HFA) Respiratory Distress acetaminophen 500 mg tablet 1,000 mg PO Q6H PRN Pain 07/24/22 06/13/24 Unknown History (Tylenol Extra Strength) aspirin 81 mg tablet,delayed 81 mg PO DAILY 07/24/22 06/13/24 04/04/23 History release (Adult Low Dose Aspirin) carvedilol 25 mg tablet 1 tab PO BID 10/24/22 06/13/24 04/04/23 History lisinopril 20 mg tablet 1 tab PO DAILY 10/24/22 06/13/24 04/04/23 History magnesium chloride 71.5 mg 1 tab PO DAILY 10/24/22 06/13/24 04/04/23 History (magnesium chloride) tablet,delayed release (Slow-Mag) omeprazole 20 mg capsule,delayed 20 mg PO BID 06/13/24 06/13/24 Unknown History release Physical Exam Vital Signs and Narrative: Vital Signs: Last Vital Signs Temp 98.3 F 06/26/24 03:46 Pulse 95 06/26/24 04:23 Resp 21 H 06/26/24 04:23 BP 163/86 H 06/26/24 03:46 Pulse Ox 95 06/26/24 04:30 O2 Del Method Nasal Cannula 06/26/24 04:30 O2 Flow Rate 2 06/26/24 04:30 BMI result Body Mass Index 30.4 General: AO X 3, no acute distress Resp: diminished bilateral, no accessory muscles used CVS: S1,S2,RRR GI: soft, non tender, non distended Neuro: motor grossly intact, alert Results Labs 06/26/24 04:10 06/26/24 04:10 Labs: Laboratory Results - last 24 hr 06/26/24 06/26/24 04:10 04:14 MCV 84.0 MCH 27.2 MCHC 32.4 RDW 15.4 Plt Count 317 MPV 9.0 L Immature Gran % (Auto) 0.4 Neut % (Auto) 82.1 H Lymph % (Auto) 11.6 L Barbour % (Auto) 4.2 Eos % (Auto) 1.3 Baso % (Auto) 0.4 Lymph # (Auto) 1.2 Barbour # (Auto) 0.4 Eos # (Auto) 0.1 Baso # (Auto) 0.0 Abs Immat Gran (auto) 0.04 H Absolute Neuts (auto) 8.5 H Absolute Nucleated RBC 0.000 Nucleated RBC % (auto) 0.0 VBG pH 7.43 VBG pCO2 36 VBG pO2 57 VBG HCO3 24 VBG O2 Saturation 95.0 VBG Base Excess 0.5 Anion Gap 14 Estim Creat Clear Calc 46.0 Estimated GFR 58 Random Glucose 125 H Calcium 9.3 D Magnesium 1.5 L Total Bilirubin 0.2 Direct Bilirubin < 0.2 AST 17 ALT 14 Alkaline Phosphatase 68 Troponin I High Sens < 2.7 B-Natriuretic Peptide 83 Total Protein 6.7 Albumin 3.9 Ethyl Alcohol < 10 COVID-19 ([facility]URO) Negative COVID-19 Clin Com See Note Imaging Radiologist's Impressions: Impressions Chest X-Ray 06/26/24 03:59 IMPRESSION: Multifocal left lung pneumonia. Findings are new compared with 06/04/2024. Electronically signed by: Keanu Rene MD 06/26/2024 04:52 AM EDT RP Assessment and Plan (1) Pneumonia: Status: Acute Plan 3F PMH HTN, mood disorder, cutaneous lupus, hld, mild intermittent asthma, hiatal hernia, osteoporosis, TIA, presented with sob acute hypoxic respiratory failure secondary to multifocal left-sided pneumonia IV ceftriaxone azithromycin, wean oxygen as tolerated, check respiratory viral panel, no sepsis Hypertension Continue carvedilol, amlodipine, lisinopril History of TIA Posterior circulation, 05/2021, no residual, clinical diagnosis, negative MRI Continue Lipitor, added baby aspirin Mood disorder Continue BuSpar, amitriptyline Hiatal hernia Continue omeprazole Mild intermittent asthma Albuterol as needed Osteoporosis Holding bisphosphonate inpatient History of cutaneous lupus In remission DVT prophylaxis Lovenox Full Code Patient with hypoxia from pneumonia, likely require at least 2 midnights inpatient to be weaned off O2 Quality Stroke Does the patient have a stroke diagnosis?: No VTE Prior VTE?: No VTE Risk Level:: Medical - moderate - high VTE Device Contraindication: Treatment Not Indicated VTE Drug Contraindication: N/A - Med Ordered
[2024-06-26] MEDS: cefTRIAXone sodium 1 GM in 0.9 % Sodium Chloride 50 ML IV (05:53)
[2024-06-26 05:56] LABS: Lactic Acid 1.9 mmol/L (0.5-2.0)
[2024-06-26] MEDS: Azithromycin 500 MG in 0.9 % Sodium Chloride 250 ML 125 MG IV (06:28)
--- NOTE | 2024-06-26 07:02 | PC.NURSE ---
report given to Griselda PUGH
[2024-06-26] MEDS: Omeprazole 40 MG CAPSULE.DR PO (07:06)
--- NOTE | 2024-06-26 07:22 | PC.NURSE ---
Resumed care of pt at 0700. Pt resting in bed quietly, respirations even and unlabored, no increased wob/sob noted, lung sounds cta bilaterally, non productive cough noted, pt on 2L NC O2 sat 95% on monitor. Pt medicated with Prilosec per DEC. Breakfast tray given, call lauren within reach, all needs met at this time, pt updated on plan for bed upstairs.
--- NOTE | 2024-06-26 08:31 | PHA.MEDREC ---
Addendum entered by Radha Whatley RPh 06/26/24 09:27: [facility] REVIEWED Original Note: Pharmacy Consult ? Medication Reconciliation Pharmacy has completed the medication reconciliation.
[2024-06-26] MEDS: Aspirin Enteric Coated 81 MG TABLET.DR PO (08:59)
[2024-06-26] MEDS: lisinopriL 20 MG TABLET PO (09:00)
[2024-06-26] MEDS: carvediloL 25 MG TABLET PO ×2 (09:00→15:16)
[2024-06-26] MEDS: busPIRone HCl 10 MG TABLET PO ×2 (09:00→20:15)
[2024-06-26] MEDS: amLODIPine Besylate 5 MG TABLET PO (09:01)
[2024-06-26] MEDS: Enoxaparin Sodium 40 MG/0.4 ML SYRINGE SUBCUT (09:01)
--- NOTE | 2024-06-26 11:24 | P.EN_ITS ---
Event Note Date of Service: 06/27/24 Event Note: This patient is seen and examined. patient admitted for pneumonia sob an chills Lab imaging reviewed: no leucocytosis or fevers lactic acid normal. Physical exam and assessment and plan coordinated in APCs note, Agree with the plan in addition: 3F PMH HTN, mood disorder, cutaneous lupus, hld, mild intermittent asthma, hiatal hernia, osteoporosis, TIA, presented with sob: acute hypoxic respiratory failure secondary to multifocal left-sided pneumonia- on iv ce ft+azithromycin,blood cultures pending Time Spent With Patient Time: Total time managing care of this patient today ____ minutes.
[2024-06-26 11:41] LABS: Adenovirus PCR Not Detected (Not Detect.); Bordetella parapertussis PCR Not Detected (Not Detect.); Bordetella pertussis PCR Not Detected (Not Detect.); Chlamydia pneumoniae PCR Not Detected (Not Detect.); Coronavirus 229E PCR Not Detected (Not Detect.); Coronavirus HKU1 PCR Not Detected (Not Detect.); Coronavirus NL63 PCR Not Detected (Not Detect.); Coronavirus OC43 PCR Not Detected (Not Detect.); Human metapneumovirus PCR Not Detected (Not Detect.); Influenza A PCR Not Detected (Not Detect.); Influenza B PCR Not Detected (Not Detect.); Mycoplasma pneumoniae PCR Not Detected (Not Detect.); Parainfluenza 1 PCR Not Detected (Not Detect.); Parainfluenza 2 PCR Not Detected (Not Detect.); Parainfluenza 3 PCR Not Detected (Not Detect.); Parainfluenza 4 PCR Not Detected (Not Detect.); RSV PCR Not Detected (Not Detect.); Rhino/Enterovirus PCR Not Detected (Not Detect.)
[2024-06-26 12:11] LABS: SARS-CoV-2 PCR Not Detected (Not Detect.)
[2024-06-26 13:39] LABS: Amphetamine Screen Urine Not Detected (Not Detect); Barbiturates, Urine Not Detected (Not Detect); Benzodiazepines Screen Urine POSITIVE (Not Detect); Buprenorphine Scr Not Detected (Not Detect); Cannabinoid Screen Urine Not Detected (Not Detect); Cocaine Screen Urine Not Detected (Not Detect); Fentanyl, urine Not Detected (Not Detect); Methadone Screen, Urine Not Detected (Not Detect); Opiate Screen Urine Not Detected (Not Detect); Oxycodone Screen Urine Not Detected (Not Detect); Phencyclidine Screen Urine Not Detected (Not Detect)
[2024-06-26] MEDS: Acetaminophen 325 MG TABLET 650 MG PO (15:16)
[2024-06-26] MEDS: 0.9 % Sodium Chloride Flush 3 ML SYRINGE IVFLUSH (15:17)
[2024-06-26] MEDS: Atorvastatin Calcium 40 MG TABLET PO (20:15)
[2024-06-26] MEDS: Amitriptyline HCl 10 MG TABLET PO (20:15)
[2024-06-26] MEDS: Melatonin 3 MG TABLET 6 MG PO (20:15)
[2024-06-27] VITALS (7 sets, daily range): BP systolic 107–141; BP diastolic 55–63; PULSE 66–74; RESP 14–20; TEMP 36.2–36.6; O2SAT 91–96
[2024-06-27] MEDS: 0.9 % Sodium Chloride Flush 3 ML SYRINGE IVFLUSH ×3 (01:12→19:36)
[2024-06-27] MEDS: cefTRIAXone sodium 1 GM in 0.9 % Sodium Chloride 50 ML IV (05:19)
[2024-06-27] MEDS: Omeprazole 40 MG CAPSULE.DR PO (05:27)
[2024-06-27] MEDS: Azithromycin 500 MG in 0.9 % Sodium Chloride 250 ML 125 MG IV (05:52)
--- NOTE | 2024-06-27 07:00 | CA_ITS ---
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 Normal LV ejection fraction of 60 65% with pseudonormal filling pattern 2. Normal cardiac valvular Dopplers next 3. Normal RV systolic pressure 4. No pericardial effusion Findings Left Ventricle Normal left ventricular size, thickness, and systolic function. The visually estimated ejection fraction is between 60-65%. Spectral Doppler is indicative of a pseudonormal filling pattern. E/E prime ratio is between 8 and 15 consistent with indeterminate filling pressures. Right Ventricle Normal right ventricular cavity size and systolic function. Atria The left atrium is likely dilated. There is no evidence of interatrial shunt. The right atrium is normal in size. Aortic Valve Normal aortic valve structure and function. There is no aortic valve stenosis. There is no aortic valve regurgitation. Mitral Valve Normal mitral valve structure and function. There is no mitral valve regurgitation. There is no mitral valve stenosis. Pulmonic Valve The pulmonic valve is likely normal. Tricuspid Valve Normal tricuspid valve structure. There is trace tricuspid valve regurgitation. The right ventricular systolic pressure is normal. The right ventricular systolic pressure is 25 mmHg. Normal right atrial pressure. There is no evidence of pulmonary hypertension. Great Vessels The pulmonary artery was not well visualized. Small plaque is seen in the sino tubular ridge. Venous The inferior vena cava is normal in size and collapses greater than 50% with inspiration. Pericardium/Pleural There is no evidence of pericardial effusion. Prior Study Comparison No significant change compared to prior study dated: 05/24/2021. Measurements 2D Linear Measurements IVSd: 0.87 0.6-0.9/0.6-1.0 cm LVIDd: 4.64 3.9-5.3/4.2-5.9 cm LVIDd Index: 2.78 2.4-3.2/2.2-3.1 cm/m2 LVIDs: 2.63 2.0-3.6 cm LVPWd: 0.93 0.7-1.1 cm LA Diam: 2.90 2.7-3.8/3.0-4.0 cm LAIDs Index: 1.74 1.5-2.3 cm/m2 LV Mass: 173.23 67-162/88-224 g LV Mass Index: 103.73 43-95/49-115 g/m2 LVOT Diam: 2.00 3.0+(-)1.3 cm 2D Systolic Function EF 4C: 66.50 >55% EF 2C: 57.20 >55% EF BiP: 61.80 >55% Mitral Valve MV Pk E: 1.11 MV PK A: 1.00 MV Decel Time: 200.00 E/A: 1.10 E'Lateral: 6.53 E'Medial: 8.16 E/E' Med: 13.60 E/E' Lat: 17.00 PHT: 59.00 MVA PHT: 3.73 Decel Sampson: 5.58 Aortic Valve AoV Pk Chris: 1.40 AoV Pk Grad: 8.00 SANJAY: 2.90 LVOT LVOT Pk Crhis: 1.30 LVOT Mn Chris: 0.92 LVOT VTI: 0.30 LVOT Pk Grad: 7.00 LVOT Mn Grad: 4.00 LVOT Diam: 2.00 LVOT Area: 3.14 Diastolic Function MV Pk E: 1.11 MV Pk A: 1.00 E/A: 1.10 E'Medial: 8.16 E/E' Med: 13.60 E' Laterial: 6.53 E/E' Lat: 17.00 Right Ventricle TAPSE (mm): 30.00 TVS' Chris: 18.10 Tricuspid Valve TR Pk Chris: 2.35 TR Pk Grad: 22.00 RA Press: 3.00 RVSP: 25.00 Great Vessels Aorta Sinus of Valsalva: 3.10 2.0-3.5 cm Ao Asc: 3.40 2.1-3.4 cm Ao Arch: 3.20 Pulmonary Veins Pulm Vein S/D 1.90 Pulmonary Valve PV Pk Chris: 0.84 Peak PV Grad: 3.00 Updated in Other Vendor System with Status of Final Aramis Starkey MD electronically signed on 06/27/2024 4:29:45 PM with status of Final
[2024-06-27] MEDS: Aspirin Enteric Coated 81 MG TABLET.DR PO (08:50)
[2024-06-27] MEDS: Enoxaparin Sodium 40 MG/0.4 ML SYRINGE SUBCUT (08:50)
[2024-06-27] MEDS: carvediloL 25 MG TABLET PO ×2 (08:50→16:46)
[2024-06-27] MEDS: lisinopriL 20 MG TABLET PO (08:50)
[2024-06-27] MEDS: amLODIPine Besylate 5 MG TABLET PO (08:50)
[2024-06-27] MEDS: busPIRone HCl 10 MG TABLET PO ×2 (08:50→19:36)
--- NOTE | 2024-06-27 14:52 | HO.PM.IMPN ---
Subjective Subjective Date of Service: 06/27/24 Interval History: pneumonia Review of Systems feels sob with excersion has cough generlaised weak Physical Exam Vital Signs: Vital Signs: Last Vital Signs Temp 97.8 F 06/27/24 07:51 Pulse 66 06/27/24 08:50 Resp 16 06/27/24 07:51 BP 113/55 L 06/27/24 08:50 Pulse Ox 91 L 06/27/24 07:51 O2 Del Method Room Air 06/27/24 04:00 O2 Flow Rate 2 06/26/24 08:57 Oxygen Flow Rate 2 06/26/24 09:14 BMI result Body Mass Index 30.4 General: AO X 3, no acute distress Resp: diminished bilateral, no accessory muscles used CVS: S1,S2,RRR GI: soft, non tender, non distended Neuro: motor grossly intact, alert Objective Data Active Medications Acetaminophen (Acetaminophen 325 Mg Tablet) 650 mg PO Q6H PRN PRN Reason: Pain, Mild (Pain Scale 1-3), fever or headache Last Admin: 06/26/24 15:16 Dose: 650 mg Documented By: IDANIA Albuterol Sulfate (Albuterol Sulfate 90 Mcg 8 Gm Inhaler) 2 puff INHALE RQ4H PRN PRN Reason: sob Amitriptyline HCl (Amitriptyline Hcl 10 Mg Tablet) 10 mg PO BEDTIME [facility] Last Admin: 06/26/24 20:15 Dose: 10 mg Documented By: IDANIA Amlodipine Besylate (Amlodipine Besylate 5 Mg Tablet) 5 mg PO DAILY [facility]; Protocol Last Admin: 06/27/24 08:50 Dose: 5 mg Documented By: ANNE MARIE Aspirin (Aspirin Enteric Coated 81 Mg Tablet.) 81 mg PO DAILY [facility] Last Admin: 06/27/24 08:50 Dose: 81 mg Documented By: ANNE MARIE Atorvastatin Calcium (Atorvastatin Calcium 40 Mg Tablet) 40 mg PO BEDTIME [facility] Last Admin: 06/26/24 20:15 Dose: 40 mg Documented By: IDANIA Buspirone HCl (Buspirone Hcl 10 Mg Tablet) 10 mg PO BID [facility] Last Admin: 06/27/24 08:50 Dose: 10 mg Documented By: ANNE MARIE Calcium Carbonate (Calcium Carbonate 750 Mg Tab.Chew) 750 mg PO Q4H PRN PRN Reason: Heartburn Carvedilol (Carvedilol 25 Mg Tablet) 25 mg PO BIDWM [facility]; Protocol Last Admin: 06/27/24 08:50 Dose: 25 mg Documented By: ANNE MARIE Chlordiazepoxide HCl (Chlordiazepoxide Hcl 5 Mg Capsule) 5 mg PO TID PRN PRN Reason: anxiety Enoxaparin Sodium (Enoxaparin Sodium 40 Mg/0.4 Ml Syringe) 40 mg SUBCUT Q24H [facility] Last Admin: 06/27/24 08:50 Dose: 40 mg Documented By: ANNE MARIE Ceftriaxone Sodium 1 gm/ (Sodium Chloride) 50 mls @ 100 mls/hr IV Q24H [facility] Last Infusion: 06/27/24 05:52 Dose: Infused Documented By: TOR Azithromycin 500 mg/ Sodium (Chloride) 250 mls @ 125 mls/hr IV Q24H [facility] Last Infusion: 06/27/24 09:49 Dose: Infused Documented By: ANNE MARIE Lisinopril (Lisinopril 20 Mg Tablet) 20 mg PO DAILY [facility]; Protocol Last Admin: 06/27/24 08:50 Dose: 20 mg Documented By: ANNE MARIE Magnesium Hydroxide (Milk Of Magnesia 30 Ml Oral.Susp) 30 ml PO DAILY PRN PRN Reason: Constipation Melatonin (Melatonin 3 Mg Tablet) 6 mg PO BEDTIME PRN PRN Reason: Insomnia Last Admin: 06/26/24 20:15 Dose: 6 mg Documented By: COTEMA Omeprazole (Omeprazole 40 Mg Capsule.Dr) 40 mg PO DAILY@0630 [facility] Last Admin: 06/27/24 05:27 Dose: 40 mg Documented By: TOR Sodium Chloride (0.9 % Sodium Chloride Flush 3 Ml Syringe) 3 ml IVFLUSH QSHIFT [facility] Last Admin: 06/27/24 07:36 Dose: Not Given Documented By: ANNE MARIE Non-Admin Reason: IV Running Labs 06/26/24 04:10 06/26/24 04:10 Microbiology Microbiology Results: Microbiology 06/26/24 05:42 Blood Culture - Preliminary Blood - Venous No growth after 24 hours. 06/26/24 05:42 Blood Culture - Preliminary Blood - Venous No growth after 24 hours. Assessment and Plan (1) Pneumonia: Status: Acute Assessment and Plan: 73F PMH HTN, mood disorder, cutaneous lupus, hld, mild intermittent asthma, hiatal hernia, osteoporosis, TIA, presented with sob acute hypoxic respiratory failure secondary to multifocal left-sided pneumonia IV ceftriaxone azithromycin, wean oxygen as tolerated, check respiratory viral panel, no sepsis Hypertension Continue carvedilol, amlodipine, lisinopril History of TIA Posterior circulation, 05/2021, no residual, clinical diagnosis, negative MRI Continue Lipitor, added baby aspirin Mood disorder Continue BuSpar, amitriptyline Hiatal hernia Continue omeprazole Mild intermittent asthma Albuterol as needed Osteoporosis Holding bisphosphonate inpatient History of cutaneous lupus In remission DVT prophylaxis Lovenox Full Code Patient with hypoxia from pneumonia-iv antiobiotics ,still symptomatic, inpatient to be weaned off O2 . Quality Stroke Does the patient have a stroke diagnosis?: No VTE Prior VTE?: No VTE Risk Level:: Medical - moderate - high VTE Device Contraindication: Treatment Not Indicated VTE Drug Contraindication: N/A - Med Ordered
[2024-06-27] MEDS: Acetaminophen 325 MG TABLET 650 MG PO (16:45)
[2024-06-27] MEDS: Melatonin 3 MG TABLET 6 MG PO (19:35)
[2024-06-27] MEDS: Atorvastatin Calcium 40 MG TABLET PO (19:36)
[2024-06-27] MEDS: Amitriptyline HCl 10 MG TABLET PO (19:36)
[2024-06-28 03:40] VITALS: BP 121/73; PULSE 92; RESP 20; TEMP 36.3; O2SAT 93
[2024-06-28] MEDS: cefTRIAXone sodium 1 GM in 0.9 % Sodium Chloride 50 ML IV (05:36)
[2024-06-28] MEDS: Omeprazole 40 MG CAPSULE.DR PO (05:36)
[2024-06-28] MEDS: Azithromycin 500 MG in 0.9 % Sodium Chloride 250 ML 125 MG IV (06:10)
[2024-06-28 07:11] VITALS: BP 132/58; PULSE 74; RESP 16; TEMP 36.8; O2SAT 92
[2024-06-28] MEDS: Enoxaparin Sodium 40 MG/0.4 ML SYRINGE SUBCUT (07:28)
[2024-06-28 07:29] VITALS: BP 132/58; PULSE 74
[2024-06-28] MEDS: carvediloL 25 MG TABLET PO (07:29)
[2024-06-28] MEDS: Aspirin Enteric Coated 81 MG TABLET.DR PO (07:29)
[2024-06-28] MEDS: amLODIPine Besylate 5 MG TABLET PO (07:29)
[2024-06-28] MEDS: lisinopriL 20 MG TABLET PO (07:29)
[2024-06-28] MEDS: busPIRone HCl 10 MG TABLET PO (07:30)
[2024-06-28 08:12] VITALS: PULSE 64; RESP 12; O2SAT 91
--- NOTE | 2024-06-28 09:56 | MHC.CM.PN ---
pt lives with niece in a 2 family ,pt has own ride home is independent dc plan home no servies
[2024-06-28 10:45] VITALS: O2SAT 92
--- NOTE | 2024-06-28 10:57 | PM.DS ---
DS: Providers Provider Date of Service: 06/28/24 Date of admission: 06/26/24 05:25 Date of discharge: 06/28/24 Primary care physician: Arnulfo Villalba MD Admitting clinician: Taz Reynolds Attending physician on admission: Taz Reynolds Attending physician on discharge: Bessie Ashraf Discharging clinician: Bessie Ashraf DS: Diagnosis Discharge Diagnosis (1) Pneumonia: Status: Acute DS: Summary Hospital Course Hospital Course: 73F PMH HTN, mood disorder, cutaneous lupus, hld, mild intermittent asthma, hiatal hernia, TIA, osteoporosis presented with sob. patient states she was feeling well day prior to presentation. on day of admission woke up in middle of night with sob and chills. denies fever, cough, chest pain. in ED started to have some nasuea and vomiting as well. cxr c/w left sided multifocal pneumonia. desaturated to 86% on room air. Hospital course: Patient was admitted to the hospital because of acute hypoxemic respiratory failure secondary to multifocal left-sided pneumonia-patient was started on IV antibiotics, blood cultures sent as well as respiratory viral panel checked. Chest x-ray showed multifocal pneumonia. With above supportive care patient seems to be improved significantly, no hypoxia. Blood culture negative at 48 hours. patient will need ceftin 500mg bidx6 days ,azithromycin 500 mg po daily x6 days .respiratory viral panel-negative.no sepsis. hypomagesmia -repleted and improving ,given magnesium 800 mg po daily for 1 week supply. please repeat bmp and magnesium in 1 week. please complete ceftin 500mg bidx6 days ,azithromycin 500 mg po daily x6 days. repeat chest imaging in 3-4 weeks to see resolution of pneumonia . inaddition -patient echo seems ef 60-65% ,cardotid dupplex seems fine-please see imaging section for further details. (requested by bariatric surgery in anticipation of outpatient surgery) plan: complete ceftin 500mg bidx6 days ,azithromycin 500 mg po daily x6 days. repeat chest imaging in 3-4 weeks to see resolution of pneumonia . Assessment and plan coordination time spent 40 minute -patient understand and in agreement with the above plan. Time Attestation Total time managing care of this patient today: 40 mintues. Discharge Coordination Time (in mins): 40 min Quality: Safe Use of Opioids Does Pt have an Active Cancer Diagnosis on the Problem List?: No Quality: Stroke Does the patient have a stroke diagnosis?: No Physical Exam Vital Signs: Vital Signs: Last Vital Signs Temp 98.2 F 06/28/24 07:11 Pulse 64 06/28/24 08:12 Resp 12 06/28/24 08:12 BP 132/58 L 06/28/24 07:29 Pulse Ox 91 L 06/28/24 08:12 O2 Del Method Room Air 06/28/24 07:11 O2 Flow Rate 2 06/26/24 08:57 Oxygen Flow Rate 2 06/26/24 09:14 BMI result Body Mass Index 30.4 General: AO X 3, no acute distress Resp: air entry seems improved, no accessory muscles used CVS: S1,S2,RRR GI: soft, non tender, non distended Neuro: motor grossly intact, alert DS: Data Data Completed and Pending Completed studies during hospitalization [Text1]: Procedures Inspection of Upper Intestinal Tract, Via Natural or Artificial Opening Endoscopic (04/04/23) Transfusion of Nonautologous Red Blood Cells into Peripheral Vein, Percutaneous Approach (04/04/23) Labs on day of discharge: Preliminary micro results at discharge 06/26/24 05:42 Blood Culture - Preliminary Blood - Venous No growth after 48 hours. 06/26/24 05:42 Blood Culture - Preliminary Blood - Venous No growth after 48 hours. Imaging Chest x-ray: Radiologist's impression: ITS Impressions Chest X-Ray 06/26/24 03:59 IMPRESSION: Multifocal left lung pneumonia. Findings are new compared with 06/04/2024. Electronically signed by: Keanu Rene MD 06/26/2024 04:52 AM EDT Carotid Doppler Study 06/27/24 13:45 IMPRESSION: 1. RIGHT: Normal right internal carotid artery without atherosclerotic plaque or hemodynamically significant stenosis. 2. LEFT: Normal left internal carotid artery without atherosclerotic plaque or hemodynamically significant stenosis. echo: Conclusions: - 1. Normal LV ejection fraction of 60 65% with pseudonormal filling pattern 2. Normal cardiac valvular Dopplers next 3. Normal RV systolic pressure 4. No pericardial effusion Discharge Plan Discharge Anticipated Discharge Date/Time: 06/28/24 10:41 Patient Disposition: Home, Self-Care Discharge Diagnosis: pneumonia Referrals: Arnulfo Villalba MD [Primary Care Provider] - 1 Week Discharge Medications: New azithromycin 500 mg tablet 500 mg PO DAILY 5 Days Qty: 6 0RF cefuroxime axetil 500 mg tablet 500 mg PO BID Qty: 12 0RF magnesium oxide 400 mg magnesium tablet 800 mg PO DAILY Qty: 14 0RF Continued chlordiazepoxide HCl 5 mg capsule 5 mg PO TID PRN (Reason: anxiety) Qty: 90 2RF atorvastatin 40 mg Tablet 40 mg PO BEDTIME Qty: 30 0RF carvedilol 25 mg tablet 1 tab PO BID lisinopril 20 mg tablet 1 tab PO DAILY Slow-Mag 71.5 mg tablet,delayed release (DR/EC) 1 tab PO DAILY amlodipine 5 mg Tablet 5 mg PO DAILY Qty: 30 0RF Protocol: Hold for SBP< HOLD for SBP < : 90 omeprazole 40 mg capsule,delayed release(DR/EC) 40 mg PO DAILY@0630 alendronate 70 mg tablet 70 mg PO TH@0900 Rx Instructions: Take 1 tab once weekly, 1st thing in the morning, on an empty stomach, with a large glass of water (at least 6 oz) and stay upright for 30 minutes fluticasone propionate 50 mcg/actuation spray,suspension 1 spray intranasal DAILY PRN (Reason: Allergic Symptoms) albuterol sulfate [Ventolin HFA] 90 mcg/actuation HFA aerosol inhaler 2 puff inhalation Q6H PRN (Reason: Respiratory Distress) aspirin [Adult Low Dose Aspirin] 81 mg tablet,delayed release (DR/EC) 81 mg PO DAILY acetaminophen [Tylenol Extra Strength] 500 mg tablet 1,000 mg PO Q6H PRN (Reason: Pain) amitriptyline 10 mg tablet 10 mg PO BEDTIME Qty: 30 3RF buspirone 10 mg tablet 10 mg PO BID Qty: 180 1RF paroxetine HCl 30 mg tablet 30 mg PO BEDTIME Qty: 90 1RF Discharge Orders: Discharge Order (Routine); Ordered 06/28/24 Ordered By: Bessie Ashraf Diet: Advance to usual diet Activity on Discharge: As tolerated Stand Alone Forms: Patient Portal Discharge page Print Language: Kyrgyz Other Ambulatory Orders: Basic Metabolic Panel (Routine) Timeframe: 1 Week Facility: [facility] - Location: Laboratory Ordered By: Bessie Ashraf Magnesium (Routine) Timeframe: 1 Week Facility: [facility] - Location: Laboratory Ordered By: Bessie Ashraf Care Plan Goals: Patient was admitted to the hospital because of acute hypoxemic respiratory failure secondary to multifocal left-sided pneumonia-patient was started on IV antibiotics, blood cultures sent as well as respiratory viral panel checked. Chest x-ray showed multifocal pneumonia. With above supportive care patient seems to be improved significantly, no hypoxia. Blood culture negative at 48 hours. patient will need ceftin 500mg bidx6 days ,azithromycin 500 mg po daily x6 days .respiratory viral panel-negative.no sepsis. hypomagesmia -repleted and improving ,given magnesium 800 mg po daily for 1 week supply. please repeat bmp and magnesium in 1 week. please complete ceftin 500mg bidx6 days ,azithromycin 500 mg po daily x6 days. repeat chest imaging in 3-4 weeks to see resolution of pneumonia . inaddition -patient echo seems ef 60-65% ,cardotid dupplex seems fine. Health Concerns: as above. Plan of Treatment: as above. Assessment: as above. Patient Instructions: Pneumonia (DC)
--- NOTE | 2024-06-28 11:06 | MHC.CM.PN ---
p[t dcd home self care
== END 2024-06-28 11:58 | disposition home or self-care (01) | DRG 193 ==
LOC: HO.ED 05:06 → HO.EDOVER 05:30 → HO.S3 08:20
PROVIDERS: Admitting Provider Internal Medicine; Emergency Provider Emergency Medicine; PCP Internal Medicine; Visit Provider Internal Medicine
DX: J18.9 Pneumonia, unspecified organism (principal); J96.01 Acute respiratory failure with hypoxia; J45.20 Mild intermittent asthma, uncomplicated; L93.0 Discoid lupus erythematosus; M81.0 Age-related osteoporosis without current pathological fracture; I10 Essential (primary) hypertension; Z86.73 Personal history of transient ischemic attack (TIA), and cerebral infarction without residual deficits; F39 Unspecified mood [affective] disorder; K44.9 Diaphragmatic hernia without obstruction or gangrene; Z20.822 Contact with and (suspected) exposure to COVID-19; Z79.82 Long term (current) use of aspirin; Z79.83 Long term (current) use of bisphosphonates; Z79.899 Other long term (current) drug therapy
CPT/HCPCS: 36415; 71045; 80048; 80076; 80307; 82803; 83605; 83735; 83880; 84484; 85025; 87040; 87633; 87635; 93005; 93306; 93880; 94640; 97161; 99285; J0456; J0696; J1650; J2405; J3475

== ENCOUNTER 2024-06-26 05:25 | Outpatient (BNV) | payer MEDICARE, SELFPAY | END 2024-06-27 07:00 | PROVIDERS: Admitting Provider Internal Medicine; Emergency Provider Emergency Medicine; PCP Internal Medicine; Visit Provider Internal Medicine Cardiovascular Disease | DX: Z01.810 Encounter for preprocedural cardiovascular examination (principal) | CPT/HCPCS: 93306 ==

== ENCOUNTER → 2024-06-26 05:25 | Outpatient (BNV) | payer MEDICARE, SELFPAY | PROVIDERS: Admitting Provider Internal Medicine; Emergency Provider Emergency Medicine; PCP Internal Medicine; Visit Provider Internal Medicine | DX: J96.01 Acute respiratory failure with hypoxia (principal); J18.9 Pneumonia, unspecified organism | CPT/HCPCS: 99223; 99231; 99239; 99499 ==

== ENCOUNTER 2024-06-27 | Outpatient (REF) | payer MEDICARE, SELFPAY | END 2024-06-27 00:01 | disposition home or self-care (01) | LOC: CF | PROVIDERS: PCP Internal Medicine; Visit Provider Surgery | DX: K44.9 Diaphragmatic hernia without obstruction or gangrene (principal) | CPT/HCPCS: 99202 ==

== ENCOUNTER 2024-06-27 09:43 | Outpatient (AMB) | payer MEDICARE, SELFPAY ==
--- NOTE | 2024-06-27 09:45 | MHC.OFFVISWM ---
VS Expanded 06/27/24 09:46 Height 5 ft 7 in Weight 236 lb 8 oz BMI 37.0 Body Fat % 38.9 Body Fat Mass 92.2 Fat Free Mass 144.6 Visceral Fat Rating 11 Body Water % 43.4 Body Water Mass 102.8 Basal Metabolic Rate/Score 1,985 Intake Visit Reasons: OV Hiatal Hernia - Dr. Elias Ref. Allergies Codeine Sulfate Allergy (Severe, Verified 06/27/24 09:47) Anaphylaxis Antihistamine Allergy (Intermediate, Verified 06/27/24 09:47) Shakiness egg Allergy (Intermediate, Verified 06/27/24 09:47) Heartburn Sulfa (Sulfonamide Antibiotics) [SULFA (SULFONAMIDE ANTIBIOTICS)] Allergy (Intermediate, Verified 06/27/24 09:47) RASH diphenhydramine [From Benadryl] Allergy (Verified 06/27/24 09:47) sweats, palpitation Medication List - Last Reconciled 06/27/24 by Ant Wiseman MD acetaminophen (Tylenol Extra Strength) 1,000 mg PO Q6H PRN albuterol sulfate 90 mcg/actuation (Ventolin HFA) 2 puffs inhalation Q6H PRN alendronate 70 mg PO TH@0900 amitriptyline 10 mg PO BEDTIME amlodipine 5 mg See Protocol PO DAILY aspirin (Adult Low Dose Aspirin) 81 mg PO DAILY atorvastatin 40 mg PO BEDTIME buspirone 10 mg PO BID carvedilol 1 tab PO BID chlordiazepoxide HCl 5 mg PO TID PRN fluticasone propionate 50 mcg/actuation 1 spray intranasal DAILY PRN lisinopril 1 tab PO DAILY magnesium chloride (Slow-Mag) 1 tab PO DAILY omeprazole 40 mg PO DAILY@0630 paroxetine HCl 30 mg PO BEDTIME HPI Comments Details: Patient has a known large hiatal hernia. Complains of severe GERD despite continuous use of Omperazole. In addition, complains of regurgitation and has had aspiration pneumonias. [facility] Medical History (Updated 06/27/24 @ 09:51 by Ant Wiseman MD) Diaphragmatic hernia Panic disorder [episodic paroxysmal anxiety] Dysthymia Hypertension Diverticulitis CVA (cerebral vascular accident) Vertigo Tubular adenoma of colon Positive colorectal cancer screening using Cologuard test Irritable bowel syndrome with both constipation and diarrhea GERD (gastroesophageal reflux disease) Depression with anxiety HTN (hypertension), benign Lupus Surgical History H/O wrist surgery Hx of colonoscopy History of cholecystectomy Family History Father CAD (coronary artery disease) Maternal Grandmother HTN (hypertension), benign Father No problems noted. 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 occupation: Retired [employer], 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 Physical Exam GI Inspection: Yes normal to inspection (android body habitus), Yes incision (well healed) and Yes obesity Palpation (GI): Soft to palpation Extrem Right lower extremity: normal to inspection Left lower extremity: normal to inspection Assessment & Plan Assessment & Plan (1) Diaphragmatic hernia: Code(s): K44.9 - Diaphragmatic hernia without obstruction or gangrene Category: Medical Qualifiers: Obstruction and gangrene presence: without obstruction or gangrene Qualified Code(s): K44.9 - Diaphragmatic hernia without obstruction or gangrene Plan: 1. We discussed the potential etiology of the hernia that could have been worsened by her weight. We discussed the details of the diaphragmatic hernia repair and the potential technical challenges such as being able to achieve enough mobilization of the esophagus back in the abdomen and being able to close the diaphragmatic muscle (crura) primarily with sutures. We also discussed the possibility of using a biologic mesh to close the hernia defect if the crura cannot be adequately re-approximated primarily with sutures. We also discussed the option of doing a gastropexy or a fundoplication to prevent postoperative reflux and prevent hernia recurrence. As we discussed, I favor the gastropexy as the fundoplication can cause several distrurbing symptoms such as gas-bloating, flatulence, inability to burp which can be bothersome to patients especially for her with a history of IBS. Also we discussed the possibility of a hernia recurrence. Shee was in agreement not to have a fundoplication. 2. Will need preoperative Echo, Lexiscan nuclear stress test, carotid dopplers and PFTs
[2024-06-27 09:46] VITALS: BMI 37.0
== END 2024-06-27 09:54 | disposition home or self-care (01) ==
LOC: HO.HBS 09:43
PROVIDERS: PCP Internal Medicine; Visit Provider Surgery
DX: K44.9 Diaphragmatic hernia without obstruction or gangrene (principal)
CPT/HCPCS: 99204

== ENCOUNTER 2024-07-06 10:09 | Outpatient (AMB) | payer MEDICARE, SELFPAY ==
--- NOTE | 2024-07-06 11:24 | MHC.OFFVISPS ---
Intake Intake Visit Reasons: depression Allergies Codeine Sulfate Allergy (Severe, Verified 07/08/24 13:43) Anaphylaxis Antihistamine Allergy (Intermediate, Verified 07/08/24 13:43) Shakiness egg Allergy (Intermediate, Verified 07/08/24 13:43) Heartburn Sulfa (Sulfonamide Antibiotics) [SULFA (SULFONAMIDE ANTIBIOTICS)] Allergy (Intermediate, Verified 07/08/24 13:43) RASH diphenhydramine [From Benadryl] Allergy (Verified 07/08/24 13:43) sweats, palpitation HPI- Psychiatric Chief Complaint: depression HPI Narrative: Patient is 73-year-old woman who generally had been stable for an extended period of time with history of panic disorder generalized anxiety. Patient was recently hospitalized for pneumonia. She has had some irrational concerns after getting a new phone and feeling that she is somehow being stalked and tormented online with taoism messages. Seems like she has been skimmed text and on you tube by fishing attempts and has been fearful regarding taoism messages that she has been getting because of anxiety had been taking increased Librium which was supposed to be a max of 5 mg 3 times a day she has been taking increased doses question periods of hypoxia there is no clear history of psychotic episode there is a history of TIAs . History of hyponatremia Past Psychiatric History: Patient has chronic history of panic somatic preoccupations mild depressive episodes. Patient has generally been doing okay she lives with her niece in the same building to family house. Some chronic anxiety related to chronic allergy symptoms have been encouraged visit to accounts payable or receivable clerk or ENT which she has not pursued Librium has been cut in half over time history of panic attacks and anxiety generally stable with Paxil buspirone denies over medication does have some degree of chronic balance problems week and discussed possibility of physical therapy for strengthening and balance. She is also seen by rheumatology Mental Status Exam Mental Status Exam Patient Appearance: Well Grooomed Patient Orientation: Person, Place, Time and Situation Level of Consciousness: Awake Patient Behavior: Appropriate Mood Description: Anxious and Apprehensive Affect Description: Constricted and Apprehensive Patient Cognition Impaired: No Ability to Follow Directions: Fair Speech Pattern: Clear Delusions: Being Controlled and Paranoid Ideation Thought Process: Distracted and Rumination Thought Content: positive for Perseveration, positive for Preoccupation, positive for Hypochondriasis, negative for Suicidal Ideation or negative for Homicidal Ideation Judgement: Good Judgement and Insight: Patient has chronically been on Paxil and Librium and has been stable for an extended period of time. Patient quite fearful regarding her phone in which she is seeing on her phone she has never had a smart phone before and appears confused and overwhelmed by messages that she is getting which she did show during the appointment Denies active self-harm but quite fearful and as thoughts that she might be better off denies plan or intent Assessment and Plan Assessment & Plan (1) Major depression with psychotic features: Status: Acute Code(s): F32.3 - Major depressive disorder, single episode, severe with psychotic features (2) Systemic lupus erythematosus: Status: Acute Qualifiers: Systemic lupus erythematosus type: unspecified Systemic lupus erythematosus organ involvement: unspecified Qualified Code(s): M32.9 - Systemic lupus erythematosus, unspecified Code(s): M32.9 - Systemic lupus erythematosus, unspecified (3) Confused but orients easily: Status: Acute Code(s): R41.0 - Disorientation, unspecified (4) Cognitive impairment: Status: Acute Code(s): R41.89 - Other symptoms and signs involving cognitive functions and awareness (5) Panic disorder [episodic paroxysmal anxiety]: Status: Acute Code(s): F41.0 - Panic disorder [episodic paroxysmal anxiety] Plan Patient appears to have agitated psychotic depression unclear if medically trigger results reviewed from recent hospitalization check labs UA start olanzapine 2.5-5 mg at bedtime for anxiety psychotic sympto patient stated she could maintain her safety was appreciative of support agreed to follow-up next week consider geriatric admission needed to Psychiatry ms insomnia.. Amitriptyline in case contributing factor we will continue Librium 5 t.i.d. for now patient to be see her PCP in the morning case reviewed with case management who will be helping manage the patient's medication and see what services might be helpful for her. At present seems illogical irrational difficulty reasoning did spanning stent time and patient's phone was deleted of much history and many apps as this appeared to be a psychotic trigger for her Executive functioning and reasoning significantly impaired question metabolic or other reason question worsening of cognitive issues check labs and UA will see Dr. Villalba in the morning again case reviewed with case management Crisis number given Consider MRI rule out metabolic infectious or other causes Medications: New olanzapine 2.5 - 5 mg (1 - 2 x 2.5 mg) PO BEDTIME 30 days 60 tabs 1RF Discontinued amitriptyline Discontinued Reason: Doctor's Order 10 mg PO BEDTIME 30 tabs 3RF Orders: Orders Comprehensive Met. Panel 07/06/24 F41.0 - Panic disorder [episodic paroxysmal anxiety], R41.0 - Disorientation, unspecified Vitamin B12 and Folate 07/06/24 F41.0 - Panic disorder [episodic paroxysmal anxiety], R41.0 - Disorientation, unspecified TSH reflex Free T4 07/06/24 F41.0 - Panic disorder [episodic paroxysmal anxiety], R41.0 - Disorientation, unspecified Magnesium 07/06/24 E83.42 - Hypomagnesemia, F41.0 - Panic disorder [episodic paroxysmal anxiety], R41.0 - Disorientation, unspecified UA and rflx microscopic 07/08/24 F41.0 - Panic disorder [episodic paroxysmal anxiety], R41.0 - Disorientation, unspecified Counseling and coordination of Care Details-Self Mgmt counseling: Reality and orientation regarding recent stressors safety plan Medication management counseling: Effectiveness and Side effects Diagnosis and Prognosis Counseling: Accuracy of diagnosis, Impact of diagnosis on life functions, Problematic behaviors secondary to diagnosis and Adequacy of current interventions Details-Diagnosis/Prognosis counseling: Patient needed much emotional support reassurance denied any active self-harm at this time appreciative of support Details: I spent [45] minutes reviewing the record, seeing the patient and documenting in the medical record. Counseling provided to the patient/caregiver as outlined below. Addressed patient/caregiver concerns regarding current medication regime including effective adherence. Addressed patient/caregiver concerns regarding diagnosis and prognosis including accuracy of diagnosis, prognosis over time, impact of diagnosis. Addressed patient/caregiver concerns regarding impact of recent stressors. [facility] Medical History (Updated 07/10/24 @ 15:44 by Thierry Moraes MD) Diaphragmatic hernia Panic disorder [episodic paroxysmal anxiety] Dysthymia Hypertension Diverticulitis CVA (cerebral vascular accident) Vertigo Tubular adenoma of colon Positive colorectal cancer screening using Cologuard test Irritable bowel syndrome with both constipation and diarrhea GERD (gastroesophageal reflux disease) Depression with anxiety HTN (hypertension), benign Lupus Surgical History H/O wrist surgery Hx of colonoscopy History of cholecystectomy Family History Father CAD (coronary artery disease) Maternal Grandmother HTN (hypertension), benign Father No problems noted. 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 occupation: Retired [employer], 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 Social History: Patient use to work as [employer] live with 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 The mother is she has a brother with PTSD family history of depression She never no children Substance History: none Trauma History: NA Coding Level of Care Code Est Pt Level 3 (60924) Therapy 30m w/E&M (88166) Diagnoses Major depression with psychotic features F32.3 Systemic lupus erythematosus, unspecified SLE type, unspecified organ involvement status M32.9 Systemic lupus erythematosus type: unspecified Systemic lupus erythematosus organ involvement: unspecified Confused but orients easily R41.0 Cognitive impairment R41.89 Panic disorder [episodic paroxysmal anxiety] F41.0
== END 2024-07-06 12:10 | disposition home or self-care (01) ==
LOC: HO.HOP 10:09
PROVIDERS: PCP Internal Medicine; Visit Provider Psychiatry & Neurology Psychiatry
DX: F32.3 Major depressive disorder, single episode, severe with psychotic features (principal); M32.9 Systemic lupus erythematosus, unspecified; R41.0 Disorientation, unspecified; R41.89 Other symptoms and signs involving cognitive functions and awareness; F41.0 Panic disorder [episodic paroxysmal anxiety]
CPT/HCPCS: 90833; 99213

== ENCOUNTER 2024-07-06 10:09 | Outpatient (REF) | payer MEDICARE, SELFPAY ==
[2024-07-06 12:42] LABS: Alanine Aminotransferase 15 U/L (0-31); Albumin Level 4.3 g/dL (3.5-5.0); Alkaline Phosphatase 79 U/L (39-117); Anion Gap 14 (12-20); Aspartate Amino Transferase 19 U/L (5-31); Bilirubin Total 0.4 mg/dL (0.0-1.0); Blood Urea Nitrogen 9 mg/dL (9-16); Calcium 9.8 mg/dL (8.4-10.2); Carbon Dioxide 25 mmol/L (22-29); Chloride 105 mmol/L (96-108); Estimated Glomerular Filt Rate > 60; Glucose Random 109 mg/dL (60-115); Magnesium 1.9 mg/dL (1.6-2.6); Potassium 3.3 mmol/L (3.3-5.1); Sodium 141 mmol/L (135-145); Total Protein 7.6 g/dL (6.5-8.0)
[2024-07-06 13:03] LABS: Folate 11.7 ng/mL (> or = 4.0); Vitamin B12 225 pg/mL (200-900)
[2024-07-06 13:04] LABS: TSH reflex Free T4 2.74 uIU/mL (0.32-4.0)
== END 2024-07-06 10:10 | disposition home or self-care (01) ==
LOC: HO.LAB 10:09
PROVIDERS: PCP Internal Medicine; Visit Provider Psychiatry & Neurology Psychiatry
DX: E83.42 Hypomagnesemia (principal); F41.0 Panic disorder [episodic paroxysmal anxiety]; R41.0 Disorientation, unspecified
CPT/HCPCS: 36415; 80053; 82607; 82746; 83735; 84443; 99212

== ENCOUNTER → 2024-07-08 11:53 | Outpatient (BNVA) | payer MEDICARE, SELFPAY | PROVIDERS: PCP Internal Medicine; Visit Provider Physician Assistant Surgical ==

== ENCOUNTER 2024-07-08 13:42 | Outpatient (REF) | payer MEDICARE, SELFPAY ==
[2024-07-08 13:59] LABS: Appearance Urine Clear; Color Urine Yellow; Glucose Urine UA Negative (Negative); Leukocyte Esterase Urine Small (1+) (Negative); Nitrite Urine Negative (Negative); Specific Gravity - Urine 1.015 (1.005-1.025); UMIC TRIGGER UA YES; Urine Blood Negative (Negative); Urine Ketones Negative (Negative); Urine Protein Negative (Neg-Trace)
[2024-07-08 14:28] LABS: Bacteria Urine None Seen (None Seen); Hyaline Casts Urine 0-2 /LPF (0-2); RBC Urine 0-2 /HPF (0-2)
== END 2024-07-08 13:43 | disposition home or self-care (01) ==
LOC: HO.LNP 13:42
PROVIDERS: Visit Provider Psychiatry & Neurology Psychiatry
DX: R41.0 Disorientation, unspecified (principal); F41.0 Panic disorder [episodic paroxysmal anxiety]
CPT/HCPCS: 81001; 81003

== ENCOUNTER 2024-07-11 13:59 | Outpatient (AMB) | payer MEDICARE, SELFPAY ==
--- NOTE | 2024-07-11 14:56 | A.OFFPSYCH_ITS ---
Intake Intake Visit Reasons: depression Allergies Codeine Sulfate Allergy (Severe, Verified 07/08/24 13:43) Anaphylaxis Antihistamine Allergy (Intermediate, Verified 07/08/24 13:43) Shakiness egg Allergy (Intermediate, Verified 07/08/24 13:43) Heartburn Sulfa (Sulfonamide Antibiotics) [SULFA (SULFONAMIDE ANTIBIOTICS)] Allergy (Intermediate, Verified 07/08/24 13:43) RASH diphenhydramine [From Benadryl] Allergy (Verified 07/08/24 13:43) sweats, palpitation cefuroxime Adverse Reaction (Verified 07/11/24 14:49) delerium ,paranoia Medication List - Last Reconciled 07/11/24 by Thierry Moraes MD acetaminophen (Tylenol Extra Strength) 1,000 mg PO Q6H PRN albuterol sulfate 90 mcg/actuation (Ventolin HFA) 2 puffs inhalation Q6H PRN alendronate 70 mg PO TH@0900 amlodipine 5 mg See Protocol PO DAILY aspirin (Adult Low Dose Aspirin) 81 mg PO DAILY atorvastatin 40 mg PO BEDTIME azithromycin 500 mg PO DAILY 5 days buspirone 10 mg PO BID carvedilol 1 tab PO BID cefuroxime axetil 500 mg PO BID chlordiazepoxide HCl 5 mg PO TID PRN fluticasone propionate 50 mcg/actuation 1 spray intranasal DAILY PRN lisinopril 1 tab PO DAILY magnesium chloride (Slow-Mag) 1 tab PO DAILY magnesium oxide 800 mg (2 x 400 mg magnesium) PO DAILY olanzapine 2.5 - 5 mg (1 - 2 x 2.5 mg) PO BEDTIME 30 days omeprazole 40 mg PO DAILY@0630 paroxetine HCl 30 mg PO BEDTIME HPI- Psychiatric Chief Complaint: depression HPI Narrative: Patient has shown remarkable improvement with olanzapine 2.5-5 mg at bedtime continues BuSpar 10 b.i.d. Paxil Librium and amitriptyline discontinued. Case management helped organize her medication appeared to have had a toxic reaction to cefuroxime. No longer taking Librium or amitriptyline no paranoia gross disorganization working attention ability to concentrate much improved dealing multiple stressors her niece with who lives upstairs had recently been taken to the emergency room Past Psychiatric History: Patient has chronic history of panic somatic preoccupations mild depressive episodes. Patient has generally been doing okay she lives with her niece in the same building to family house. Some chronic anxiety related to chronic allergy symptoms have been encouraged visit to vice president education or ENT which she has not pursued Librium has been cut in half over time history of panic attacks and anxiety generally stable with Paxil buspirone denies over medication does have some degree of chronic balance problems week and discussed possibility of physical therapy for strengthening and balance. She is also seen by rheumatology Mental Status Exam Mental Status Exam Patient Appearance: Well Grooomed Patient Orientation: Person, Place, Time and Situation Level of Consciousness: Awake Patient Behavior: Appropriate Mood Description: Appropriate and Relaxed Affect Description: Calm and Appropriate Patient Cognition Impaired: No Ability to Follow Directions: Good Speech Pattern: Clear Memory Description: Intact Hallucinations: None Delusions: Not Present Thought Process: Distracted and Rumination Thought Content: negative for Suicidal Ideation or negative for Homicidal Ideation Judgement: Good Judgement and Insight: Patient's mood and attention remarkably improved . No psychotic symptoms Results Reviewed Results Reviewed: B12 to 12 mildly decreased CBC chemistries generally unremarkable echo reviewed notes from bariatric surgery reviewed Assessment and Plan Assessment & Plan (1) Panic disorder [episodic paroxysmal anxiety]: Status: Acute Code(s): F41.0 - Panic disorder [episodic paroxysmal anxiety] (2) Mood disorder, drug-induced: Status: Acute Code(s): F19.94 - Other psychoactive substance use, unspecified with psychoactive substance-induced mood disorder Plan The patient is doing remarkably better with a clear sensorium no longer confused or feeling like she is getting messages from her phone. It appears that she had had a toxic delirium and paranoia probably from the use of cefuroxime secondary to its use for treatment of pneumonia. Patient is clear alert full range of affect dealing with multiple stressors but has been managing. She had been quite disorganized at home with her medication and case management has been quite helpful in helping her reorganize. Her labs were generally unremarkable B12 on the low side she will increase her replacement dose is 212. UA showed some white blood cells but no bacteria. Patient has stopped amitriptyline has not been taking Librium. She alert with good energy Medications: Discontinued chlordiazepoxide HCl Discontinued Reason: Patient no longer taking 5 mg PO TID PRN 90 caps 2RF anxiety Counseling and coordination of Care Details-Self Mgmt counseling: Patient seems bright future oriented discussed issues related self management help from case management Discussed issues related to cardiac workup upcoming potential gastropexy Medication management counseling: Effectiveness and Side effects Diagnosis and Prognosis Counseling: Problematic behaviors secondary to diagnosis and Adequacy of current interventions Details: I spent [40] minutes reviewing the record, seeing the patient and documenting in the medical record. Counseling provided to the patient/caregiver as outlined below. Addressed patient/caregiver concerns regarding current medication regime including effective adherence. Addressed patient/caregiver concerns regarding diagnosis and prognosis including accuracy of diagnosis, prognosis over time, impact of diagnosis. Addressed patient/caregiver concerns regarding impact of recent stressors. [facility] Medical History (Updated 07/11/24 @ 17:39 by Thierry Moraes MD) Mood disorder, drug-induced Diaphragmatic hernia Panic disorder [episodic paroxysmal anxiety] Dysthymia Hypertension Diverticulitis CVA (cerebral vascular accident) Vertigo Tubular adenoma of colon Positive colorectal cancer screening using Cologuard test Irritable bowel syndrome with both constipation and diarrhea GERD (gastroesophageal reflux disease) Depression with anxiety HTN (hypertension), benign Lupus Surgical History H/O wrist surgery Hx of colonoscopy History of cholecystectomy Family History Father CAD (coronary artery disease) Maternal Grandmother HTN (hypertension), benign Father No problems noted. 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 The mother is she has a brother with PTSD family history of depression She never no children Substance History: none Trauma History: NA Coding Level of Care Code Est Pt Level 3 (99691) Therapy 30m w/E&M (82379) Diagnoses Panic disorder [episodic paroxysmal anxiety] F41.0 Mood disorder, drug-induced F19.94
== END 2024-07-11 14:58 | disposition home or self-care (01) ==
LOC: HO.HOP 13:59
PROVIDERS: PCP Internal Medicine; Visit Provider Psychiatry & Neurology Psychiatry
DX: F41.0 Panic disorder [episodic paroxysmal anxiety] (principal); F19.94 Other psychoactive substance use, unspecified with psychoactive substance-induced mood disorder
CPT/HCPCS: 90833; 99213

== ENCOUNTER → 2024-07-11 13:59 | Outpatient (BNVA) | payer MEDICARE, SELFPAY | PROVIDERS: PCP Internal Medicine; Visit Provider Psychiatry & Neurology Psychiatry | DX: F41.0 Panic disorder [episodic paroxysmal anxiety] (principal); F19.94 Other psychoactive substance use, unspecified with psychoactive substance-induced mood disorder | CPT/HCPCS: 99212 ==

== ENCOUNTER → 2024-07-20 10:45 | Outpatient (BNVA) | payer MEDICARE, SELFPAY | PROVIDERS: PCP Internal Medicine ==

== ENCOUNTER 2024-07-25 09:59 | Outpatient (AMB) | payer MEDICARE, SELFPAY ==
--- NOTE | 2024-07-25 12:38 | MHC.OFFVISPS ---
Intake Intake Visit Reasons: depression Allergies Codeine Sulfate Allergy (Severe, Verified 07/08/24 13:43) Anaphylaxis Antihistamine Allergy (Intermediate, Verified 07/08/24 13:43) Shakiness egg Allergy (Intermediate, Verified 07/08/24 13:43) Heartburn Sulfa (Sulfonamide Antibiotics) [SULFA (SULFONAMIDE ANTIBIOTICS)] Allergy (Intermediate, Verified 07/08/24 13:43) RASH diphenhydramine [From Benadryl] Allergy (Verified 07/08/24 13:43) sweats, palpitation cefuroxime Adverse Reaction (Verified 07/11/24 14:49) delerium ,paranoia Medication List - Last Reconciled 08/26/24 by Thierry Moraes MD acetaminophen (Tylenol Extra Strength) 1,000 mg PO Q6H PRN albuterol sulfate 90 mcg/actuation (Ventolin HFA) 2 puffs inhalation Q6H PRN alendronate 70 mg PO TH@0900 amlodipine 5 mg See Protocol PO DAILY aspirin (Adult Low Dose Aspirin) 81 mg PO DAILY atorvastatin 40 mg PO BEDTIME azithromycin 500 mg PO DAILY 5 days buspirone 10 mg PO BID carvedilol 1 tab PO BID cefuroxime axetil 500 mg PO BID fluticasone propionate 50 mcg/actuation 1 spray intranasal DAILY PRN lisinopril 1 tab PO DAILY magnesium chloride (Slow-Mag) 1 tab PO DAILY magnesium oxide 800 mg (2 x 400 mg magnesium) PO DAILY olanzapine 2.5 - 5 mg (1 - 2 x 2.5 mg) PO BEDTIME 30 days omeprazole 40 mg PO DAILY@0630 paroxetine HCl 30 mg PO BEDTIME HPI- Psychiatric Chief Complaint: depression HPI Narrative: Patient seen psychiatric follow-up. Patient is feeling much more stable has done well on olanzapine has been helped by the navigation team and now home-based help . No gross paranoia agitation mood thinking markedly improved Past Psychiatric History: Patient has chronic history of panic somatic preoccupations mild depressive episodes. Patient has generally been doing okay she lives with her niece in the same building to family house. Some chronic anxiety related to chronic allergy symptoms have been encouraged visit to therapy tech or ENT which she has not pursued Librium has been cut in half over time history of panic attacks and anxiety generally stable with Paxil buspirone denies over medication does have some degree of chronic balance problems week and discussed possibility of physical therapy for strengthening and balance. She is also seen by rheumatology Mental Status Exam Mental Status Exam Narrative: Mental Status Exam Narrative: Appearance: Casually dressed Behavior: Cooperative appropriate psychomotor: Within normal limits Speech: Normal volume and prosody Thought proccess logical and goal-directed Thought content: Future oriented no self-harming thoughts. No longer with paranoid concerns irrational thoughts concerns regarding her niece who lives in an apartment next her who recently had medical difficulty Mood: Feels good generally some anxiety Affect: Appropriate to mood full affect SI:denies HI:denies VH/AH:none Delusions: None Insight/judgment: Good insight and judgment Memory/cog: Intact Assessment and Plan Assessment & Plan (1) Mood disorder, drug-induced: Status: Acute Code(s): F19.94 - Other psychoactive substance use, unspecified with psychoactive substance-induced mood disorder (2) Panic disorder [episodic paroxysmal anxiety]: Status: Acute Code(s): F41.0 - Panic disorder [episodic paroxysmal anxiety] (3) Generalized anxiety disorder: Status: Acute Code(s): F41.1 - Generalized anxiety disorder Plan Patient has generally been doing okay feels more stable on olanzapine 2.5 -5mg no psychotic symptoms she remains under stress from both medical issues that still need to be dealt with including hiatal hernia causing pulmonary difficulties her phone information getting hacked we did discuss how to place a hold on her credit does need help and reassurance community navigation has been quite helpful. Case briefly discussed with Dr. Cohen who will be doing the surgery recent psychotic episode does seem to be infection and medication induced will continue to monitor discussed with patient and decide on potential long-term benefits of low-dose olanzapine monitor for side effects current evidence of dyskinesia or other abnormal movement Counseling and coordination of Care Details-Self Mgmt counseling: Issues related to recent irrational thoughts bizarre thinking stress over upcoming surgery Medication management counseling: Effectiveness, Side effects and Dosing range Diagnosis and Prognosis Counseling: Problematic behaviors secondary to diagnosis and Adequacy of current interventions Details: I spent [40] minutes reviewing the record, seeing the patient and documenting in the medical record. Counseling provided to the patient/caregiver as outlined below. Addressed patient/caregiver concerns regarding current medication regime including effective adherence. Addressed patient/caregiver concerns regarding diagnosis and prognosis including accuracy of diagnosis, prognosis over time, impact of diagnosis. Addressed patient/caregiver concerns regarding impact of recent stressors. [facility] Medical History (Updated 08/26/24 @ 11:25 by Thierry Moraes MD) Generalized anxiety disorder Mood disorder, drug-induced Diaphragmatic hernia Panic disorder [episodic paroxysmal anxiety] Dysthymia Hypertension Diverticulitis CVA (cerebral vascular accident) Vertigo Tubular adenoma of colon Positive colorectal cancer screening using Cologuard test Irritable bowel syndrome with both constipation and diarrhea GERD (gastroesophageal reflux disease) Depression with anxiety HTN (hypertension), benign Lupus Surgical History H/O wrist surgery Hx of colonoscopy History of cholecystectomy Family History Father CAD (coronary artery disease) Maternal Grandmother HTN (hypertension), benign Father No problems noted. 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 The mother is she has a brother with PTSD family history of depression She never no children Substance History: none Trauma History: NA Coding Level of Care Code Est Pt Level 3 (88397) Therapy 30m w/E&M (16974) Diagnoses Mood disorder, drug-induced F19.94 Panic disorder [episodic paroxysmal anxiety] F41.0 Generalized anxiety disorder F41.1
== END 2024-07-25 10:48 | disposition home or self-care (01) ==
LOC: HO.HOP 09:59
PROVIDERS: PCP Internal Medicine; Visit Provider Psychiatry & Neurology Psychiatry
DX: F19.94 Other psychoactive substance use, unspecified with psychoactive substance-induced mood disorder (principal); F41.0 Panic disorder [episodic paroxysmal anxiety]; F41.1 Generalized anxiety disorder
CPT/HCPCS: 90833; 99213

== ENCOUNTER → 2024-07-25 09:59 | Outpatient (BNVA) | payer MEDICARE, SELFPAY | PROVIDERS: PCP Internal Medicine; Visit Provider Psychiatry & Neurology Psychiatry | DX: F19.94 Other psychoactive substance use, unspecified with psychoactive substance-induced mood disorder (principal); F41.0 Panic disorder [episodic paroxysmal anxiety]; F41.1 Generalized anxiety disorder; F32.A Depression, unspecified; Z79.899 Other long term (current) drug therapy | CPT/HCPCS: 99212 ==

== ENCOUNTER → 2024-07-26 11:28 | Outpatient (BNVA) | payer MEDICARE, SELFPAY | PROVIDERS: PCP Internal Medicine ==

== ENCOUNTER 2024-08-02 07:59 | Outpatient (REF) | payer MEDICARE, SELFPAY ==
--- NOTE | 2024-08-02 08:00 | PFT_ITS ---
Flows: FEV1: 88 % of predicted at 1.58 L FVC: 102 % of predicted at 2.37 L FEV1/FVC: 67 % Bronchodilator response: Absent Volumes: Total lung capacity: 85 % of predicted at 3.60 L Residual volume: 68 % of predicted at 1.22 L Slow vital capacity: 98 % of predicted at 2.39 L Expiratory reserve volume: 93 % of predicted at 0.52 L Diffusion capacity: Mildly decreased. Impression: Mild obstructive ventilatory defect with no bronchodilator response. Decreased diffusion capacity suggests emphysema. MTDD
== END 2024-08-02 08:00 | disposition home or self-care (01) ==
LOC: HO.RESP 07:59
PROVIDERS: PCP Internal Medicine; Visit Provider Surgery
DX: K44.9 Diaphragmatic hernia without obstruction or gangrene (principal); R93.41 Abnormal radiologic findings on diagnostic imaging of renal pelvis, ureter, or bladder
CPT/HCPCS: 94010; 94640; 94727; 94729

== ENCOUNTER → 2024-08-02 09:01 | Outpatient (BNV) | payer MEDICARE, SELFPAY | PROVIDERS: PCP Internal Medicine; Visit Provider Internal Medicine Pulmonary Disease | DX: J43.9 Emphysema, unspecified (principal); R94.31 Abnormal electrocardiogram [ECG] [EKG] | CPT/HCPCS: 94060; 94727; 94729 ==

== ENCOUNTER → 2024-08-03 13:58 | Outpatient (BNVA) | payer MEDICARE, SELFPAY | PROVIDERS: PCP Internal Medicine ==

== ENCOUNTER → 2024-08-12 07:35 | Outpatient (REF) | payer MEDICARE, SELFPAY ==
--- NOTE | ~2024-08-12 | NM_ITS ---
Lexiscan Myocardial perfusion study Indication: Abnormal EKG, preoperative cardiovascular evaluation Technique: The patient was brought in for a Lexiscan perfusion study on 08/12/2024 and was injected 0.4 mg of Lexiscan intravenously. Within a minute of this injection 25 mCi of sestamibi was given intravenously. Images were obtained using the SPECT gamma camera interlaced with the gating device. Images were obtained in supine position. Resting perfusion study was performed on 08/17/2024. Patient was administered 25 mCi of sestamibi intravenously at rest. Images were then obtained in supine position. Images obtained without without CT attenuation. Total DLP 135 mGy-cm. Images were processed with the software and compared side to side in short axis, horizontal long axis and vertical long axis views. Findings: Stress and rest perfusion study are somewhat suboptimal due to intense subdiaphragmatic uptake in the liver as well as from gastric uptake in the thoracic cavity. The stress perfusion study showed nonattenuated images show moderately reduced uptake in the inferoapical and apical wall of the LV myocardium and mildly reduced uptake in the inferior and inferolateral wall of the LV myocardium. Attenuated corrected images show no significant change in perfusion compared to nonattenuated images.. The gated study shows normal LV systolic function with calculated LVEF of 67%. LV cavity is normal in size. The gated study shows normal systolic wall thickening and contraction of segments. Resting study shows no change in perfusion pattern compared to stress perfusion study. Gating at rest reveals normal systolic wall motion with ejection fraction at 71%. The findings are consistent with no clear reversible defect suggestive of ischemia. Likely normal myocardial perfusion. NM/NM mik perf SPECT rest & str Impression: 1. Myocardial perfusion imaging study shows likely normal myocardial perfusion 2. Gated LVEF is 67% 3. Transient ischemic dilatation not present Nondiagnostic changes on EKG. Electronically signed by: Aramis Starkey MD 08/17/2024 12:51 PM EDT
--- NOTE | 2024-08-12 07:38 | CA_ITS ---
Acquisition Time: 2024-08-12 07:55:59 Total Exercise Time: 00:02:00 Test Indications: Abnormal ECG Medications: SEE H Protocol: LEXISCAN Max HR: 096 BPM 66% of Pred: 145 BPM Max BP: 132/082 mmHG Max Work Load: 1.0 METS Pharmacological stress test with Lexiscan injection, while sitting and kicking her legs, without anginal symptoms, without arrythmia, with normotensive response to injection, with nondiagnostic EKG for ischemia. In recovery she reported headache and chest heaviness. She was treated with Aminophylline 75mg IVP to reverse Lexiscan with resolution of symptom. Nuclear images pending. Test reviewed with Dr Starkey Referred By: Ant Wiseman Overread By: CHRISTIE PINEDA
== END ==
LOC: HO.CARD 07:35
PROVIDERS: PCP Internal Medicine; Visit Provider Surgery
DX: R94.31 Abnormal electrocardiogram [ECG] [EKG] (principal); K44.9 Diaphragmatic hernia without obstruction or gangrene
CPT/HCPCS: 78452; 93017; A9500; J0280; J2785

== ENCOUNTER → 2024-08-12 07:38 | Outpatient (BNV) | payer MEDICARE, SELFPAY | PROVIDERS: PCP Internal Medicine; Visit Provider Nurse Practitioner Family | DX: R07.9 Chest pain, unspecified (principal) | CPT/HCPCS: 78452; 93016; 93018 ==

== ENCOUNTER 2024-08-26 08:16 | Outpatient (AMB) | payer MEDICARE, SELFPAY ==
--- NOTE | 2024-08-26 12:28 | A.OFFVIS_ITS ---
VS Expanded 08/26/24 12:35 Height 5 ft Weight 145 lb BMI 28.3 Intake Visit Reasons: TV Pre Op Diaphragmatic Hernia 09/13/24 Allergies Codeine Sulfate Allergy (Severe, Verified 08/26/24 12:29) Anaphylaxis Antihistamine Allergy (Intermediate, Verified 08/26/24 12:29) Shakiness egg Allergy (Intermediate, Verified 08/26/24 12:29) Heartburn Sulfa (Sulfonamide Antibiotics) [SULFA (SULFONAMIDE ANTIBIOTICS)] Allergy (Intermediate, Verified 08/26/24 12:29) RASH diphenhydramine [From Benadryl] Allergy (Verified 08/26/24 12:29) sweats, palpitation cefuroxime Adverse Reaction (Verified 08/26/24 12:29) delerium ,paranoia Medication List - Last Reconciled 08/26/24 by Ant Wiseman MD acetaminophen (Tylenol Extra Strength) 1,000 mg PO Q6H PRN albuterol sulfate 90 mcg/actuation (Ventolin HFA) 2 puffs inhalation Q6H PRN alendronate 70 mg PO TH@0900 amlodipine 5 mg See Protocol PO DAILY aspirin (Adult Low Dose Aspirin) 81 mg PO DAILY atorvastatin 40 mg PO BEDTIME buspirone 10 mg PO BID carvedilol 1 tab PO BID fluticasone propionate 50 mcg/actuation 1 spray intranasal DAILY PRN lisinopril 1 tab PO DAILY magnesium chloride (Slow-Mag) 1 tab PO DAILY magnesium oxide 800 mg (2 x 400 mg magnesium) PO DAILY olanzapine 2.5 - 5 mg (1 - 2 x 2.5 mg) PO BEDTIME 30 days omeprazole 40 mg PO DAILY@0630 ondansetron 4 mg PO Q12H pantoprazole 40 mg PO DAILY paroxetine HCl 30 mg PO BEDTIME polyethylene glycol 3350 17 grams PO DAILY sucralfate 10 mL PO BID HPI HPI TV Pre Op Diaphragmatic Hernia 09/13/24: Details: Start time: 12.17pm, End time: 12.47pm ?I spent 25 minutes speaking with the patient on the phone plus an additional 5 minutes reviewing and updating records for a total of 30 minutes HPI Comments Details: This her preoperative appointment for laparoscopic diaphragmatic hernia repair PFSH Medical History (Updated 08/26/24 @ 11:25 by Thierry Moraes MD) Generalized anxiety disorder Mood disorder, drug-induced Diaphragmatic hernia Panic disorder [episodic paroxysmal anxiety] Dysthymia Hypertension Diverticulitis CVA (cerebral vascular accident) Vertigo Tubular adenoma of colon Positive colorectal cancer screening using Cologuard test Irritable bowel syndrome with both constipation and diarrhea GERD (gastroesophageal reflux disease) Depression with anxiety HTN (hypertension), benign Lupus Surgical History H/O wrist surgery Hx of colonoscopy History of cholecystectomy Family History Father CAD (coronary artery disease) Maternal Grandmother HTN (hypertension), benign Father No problems noted. 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 Telehealth Telehealth Telehealth Platform: Telephone Location of provider rendering services: practice address Location of patient: address on file Patient Identification confirmed using: Name, : Yes Telehealth method: voice only Patient verbally consented to treatment: Yes Patient verbally consented to billing insurance company: Yes Patient informed of any privacy concerns related to visit: Yes Minutes spent on Phone/Video with Pt.: 30 Assessment & Plan Assessment & Plan (1) Diaphragmatic hernia: Code(s): K44.9 - Diaphragmatic hernia without obstruction or gangrene Category: Medical Qualifiers: Obstruction and gangrene presence: without obstruction or gangrene Qualified Code(s): K44.9 - Diaphragmatic hernia without obstruction or gangrene Plan: 1. We discussed the potential etiology of the hernia. We discussed the details of the diaphragmatic hernia repair and the potential technical challenges such as being able to achieve enough mobilization of the esophagus back in the abdomen and being able to close the diaphragmatic muscle (crura) primarily with sutures. We also discussed the possibility of using a biologic mesh to close the hernia defect if the crura cannot be adequately re-approximated primarily with sutures. We also discussed the option of doing a gastropexy or a fundoplication to prevent postoperative reflux and prevent hernia recurrence. As we discussed, I favor the gastropexy as the fundoplication can cause several distrurbing symptoms such as gas-bloating, flatulence, inability to burp which can be bothersome to patients. Also we discussed the complexity of a potential hernia recurrence in association with a hernia recurrence. She was in agreement not to have a fundoplication. 2. Preop prescriptions were provided and explained the purpose of each one. Need to be purchased preop. Start Pantoprazole now as you get it from the pharmacy, 1 pill per day. Sucralfate and Zofran are for after surgery as needed. 3. Bowel prep: please do 7 packets ?of Miralax mixing each one with a an 8oz glass of water, crystal light, gatorade zero, or propel ?on 09/11/24 and the same amount on 09/12/24. The Miralax you begin with one packet at a time in 8oz water or crystal light, gatorade zero, or propel ?as early in the day as you can and you do them back to back until you finish them. Continue the protein shakes during ?the bowel prep. 4. Needs to purchase 1oz medicine cups . 5. Needs to purchase Children's liquid Tylenol for postop pain control. 6. She needs to stop the aspirin on 09/03/24 (last pill that day). Avoid aspirin, motrin, Advil, Aleve, Ibuprofen, Naproxyn. Tylenol is OK. 7. She needs to purchase the Celebrate 4:1 protein shakes or the Celebrate multivitamins from the hospital's gift shop. 8. Will do basic preop blood work-up any day between Thursday10/06/22 and Thursday10/10/22 fasting for 12 hours and is scheduled to see the Anesthesiologist prior to the day of surgery. 9. Importance of adherence to postop folllow-up and recommendations was underscored and she understands that. 10. Stop food as of Thursday08/29/24 and continue with 4 Celebrate REBUILD protein shakes (ONE scoop EACH in 8oz almond milk) at 8am-10am, 11am-1pm, 2pm- 4pm, 5pm-7pm and one more Celebrate REBUILD protein shake with TWO scoop in 12oz of almond milk at 8pm-10pm 11. No soups, broths or V8 12. The patient's?medical?history has been reviewed and they are considered low risk for post op DVT and therefore DVT prophylaxis is not considered necessary. Travel after surgery was reviewed. The patient has not disclosed any travel plans during the first 30 days after surgery and they have been advised that within the first 30 days after surgery any bus, plane, train or car travel over 2 hours in duration is contraindicated due to the possibility of developing blood clots from immobility. Any travel, needs to include periods of ambulation of 10 minutes in duration every 2 hours.? Patient was instructed to discuss any plans for travel during this period with their bariatric surgeon.? 13. As of tomorrow, please check your blood pressure daily in the morning. If your blood pressure is: Below 120/70: only take the morning Carvedilol 121/71 to 135/85: take the Carvedilol in the morning and evening 136/86 to 140/90: take the Carvedilol in the morning and evening and the Amlodipine Over 141/91: take the Carvedilol in the morning and evening, the Lisinopril and the Amlodipine 14. Please take at the day of surgery the following medications: The Carvedilol, Amlodipine and Lisinopril if the blood pressure is high enough that day to justify it based on the parameters above. 15. Stop any control pills and don't use them for one month after surgery 16. Absolutely no smoking or vaping, or marijuana until the surgery and for at least the first 4 weeks. Only nicotine patches are allowed. 17. Avoid any steroids by mouth for any reason. Let me know if someone prescribes them to you Orders: Orders Comprehensive Met. Panel Today Z01.818 - Encounter for other preprocedural examination TSH reflex Free T4 Today Z01.818 - Encounter for other preprocedural examination Prothrombin Time INR Today Z01.818 - Encounter for other preprocedural examination IRON PROFILE Today Z01.818 - Encounter for other preprocedural examination Zinc Today Z01.818 - Encounter for other preprocedural examination Hemoglobin A1c Today Z01.818 - Encounter for other preprocedural examination Lipid Panel Today Z818 - Encounter for other preprocedural examination C Reactive Protein Today Z818 - Encounter for other preprocedural examination Complete Blood Count Auto Diff Today Z818 - Encounter for other preprocedural examination Insulin Today Z818 - Encounter for other preprocedural examination Type and Screen Today Z818 - Encounter for other preprocedural examination Partial Thromboplastin Time Today Z818 - Encounter for other preprocedural examination Ferritin Today Z818 - Encounter for other preprocedural examination Vitamin A Today Z818 - Encounter for other preprocedural examination Vitamin B1 Today Z818 - Encounter for other preprocedural examination Vitamin B12 Today Z818 - Encounter for other preprocedural examination Vitamin D 25-OH Total Today Z818 - Encounter for other preprocedural examination Medications: New ondansetron Only take one every 12 hours as needed if you have nausea 4 mg PO Q12H 20 tabs 0RF nausea and vomiting R11.0 - Nausea polyethylene glycol 3350 Mix each measuring cup with 8oz of water, Crystal light, or Gatorade zero, or Propel and do 7 measuring cups on 09/11/24 and another 7 measuring cups on 09/12/24 17 grams PO DAILY 238 grams 0RF Z01.818 - Encounter for other preprocedural examination pantoprazole 40 mg PO DAILY 90 tabs 0RF K21.9 - Gastro-esophageal reflux disease without esophagitis sucralfate 10 mL PO BID 600 mL 2RF K21.9 - Gastro-esophageal reflux disease without esophagitis
[2024-08-26 12:35] VITALS: BMI 28.3
== END 2024-08-26 12:48 | disposition home or self-care (01) ==
LOC: HO.HBS 08:16
PROVIDERS: PCP Internal Medicine; Visit Provider Surgery
DX: K44.9 Diaphragmatic hernia without obstruction or gangrene (principal)
CPT/HCPCS: 99443

== ENCOUNTER → 2024-08-26 08:16 | Outpatient (BNVA) | payer MEDICARE, SELFPAY | PROVIDERS: PCP Internal Medicine; Visit Provider Surgery ==

== ENCOUNTER 2024-09-05 12:10 | Outpatient (AMB) | payer MEDICARE, SELFPAY ==
--- NOTE | 2024-09-05 12:53 | A.OFFPSYCH_ITS ---
Intake Intake Visit Reasons: depression Allergies Codeine Sulfate Allergy (Severe, Verified 09/13/24 06:13) Anaphylaxis Antihistamine Allergy (Intermediate, Verified 09/13/24 06:13) Shakiness egg Allergy (Intermediate, Verified 09/13/24 06:13) Heartburn Sulfa (Sulfonamide Antibiotics) [SULFA (SULFONAMIDE ANTIBIOTICS)] Allergy (Intermediate, Verified 09/13/24 06:13) RASH diphenhydramine [From Benadryl] Allergy (Verified 09/13/24 06:13) sweats, palpitation cefuroxime Adverse Reaction (Verified 09/13/24 06:13) delerium ,paranoia HPI- Psychiatric Chief Complaint: depression HPI Narrative: Pt seen in f/u has anxiety re upcoming surgery for gastroplexy with dr shaw . Has generally been ok limited physically secondary to sig hiatal hernia that requirs surgery . Pt has noticed invol mouth movements has d/c olanzapine. Pt has had inc anxiety prior to surgery otherwise doing ok Past Psychiatric History: Patient has chronic history of panic somatic preoccupations mild depressive episodes. Patient has generally been doing okay she lives with her niece in the same building to family house. Some chronic anxiety related to chronic allergy symptoms have been encouraged visit to web development intern or ENT which she has not pursued Librium has been cut in half over time history of panic attacks and anxiety generally stable with Paxil buspirone denies over medication does have some degree of chronic balance problems week and discussed possibility of physical therapy for strengthening and balance. She is also seen by rheumatology Mental Status Exam Mental Status Exam Narrative: Mental Status Exam Narrative: Appearance: Casually dressed Behavior: Cooperative appropriate psychomotor: Within normal limits Speech: Normal volume and prosody Thought proccess logical and goal-directed Thought content: worried re surgery concerned regarding mouth movements Mood: anxious Affect: constricted SI:denies HI:denies VH/AH:none Delusions: None Insight/judgment: Good insight and judgment Memory/cog: Intact Assessment and Plan Assessment & Plan (1) Panic disorder [episodic paroxysmal anxiety]: Status: Acute Code(s): F41.0 - Panic disorder [episodic paroxysmal anxiety] (2) Generalized anxiety disorder: Status: Acute Code(s): F41.1 - Generalized anxiety disorder Plan Hold olanzapine question myoclonic jerks or EPS at bedtime no evidence of tardive dyskinesia on exam otherwise cont present plan of care off of benzodiazipines Medications: Discontinued olanzapine Discontinued Reason: Doctor's Order 2.5 - 5 mg (1 - 2 x 2.5 mg) PO BEDTIME 30 days 60 tabs 1RF Counseling and coordination of Care Details-Self Mgmt counseling: No psychosis preoccupied about upcoming surgery concerns regarding recent olanzapine side effects discussed stress related issues Medication management counseling: Effectiveness and Side effects Diagnosis and Prognosis Counseling: Adequacy of current interventions Details: I spent [25] minutes reviewing the record, seeing the patient and documenting in the medical record. Counseling provided to the patient/caregiver as outlined below. Addressed patient/caregiver concerns regarding current medication regime including effective adherence. Addressed patient/caregiver concerns regarding diagnosis and prognosis including accuracy of diagnosis, prognosis over time, impact of diagnosis. Addressed patient/caregiver concerns regarding impact of recent stressors. 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 Headache Sinusitis Asthma Generalized anxiety disorder Mood disorder, drug-induced Diaphragmatic hernia Panic disorder [episodic paroxysmal anxiety] Dysthymia Hypertension Diverticulitis CVA (cerebral vascular accident) Vertigo Tubular adenoma of colon Positive colorectal cancer screening using Cologuard test Irritable bowel syndrome with both constipation and diarrhea GERD (gastroesophageal reflux disease) Depression with anxiety HTN (hypertension), benign Lupus Surgical History (Updated 09/18/24 @ 00:03 by Background Daemon) H/O wrist surgery Hx of colonoscopy History of cholecystectomy Family History Father CAD (coronary artery disease) Maternal Grandmother HTN (hypertension), benign Father No problems noted. 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 The mother is she has a brother with PTSD family history of depression She never no children Substance History: none Trauma History: NA Coding Level of Care Code Est Pt Level 4 (83806) Diagnoses Panic disorder [episodic paroxysmal anxiety] F41.0 Generalized anxiety disorder F41.1
== END 2024-09-05 15:46 | disposition home or self-care (01) ==
LOC: HO.HOP 12:10
PROVIDERS: PCP Internal Medicine; Visit Provider Psychiatry & Neurology Psychiatry
DX: F41.0 Panic disorder [episodic paroxysmal anxiety] (principal); F41.1 Generalized anxiety disorder
CPT/HCPCS: 99214

== ENCOUNTER → 2024-09-05 12:10 | Outpatient (BNVA) | payer MEDICARE, SELFPAY | PROVIDERS: PCP Internal Medicine; Visit Provider Psychiatry & Neurology Psychiatry | DX: F32.A Depression, unspecified (principal); F41.0 Panic disorder [episodic paroxysmal anxiety]; F41.1 Generalized anxiety disorder; Z71.89 Other specified counseling | CPT/HCPCS: 99212 ==

== ENCOUNTER 2024-09-07 08:01 | Outpatient (REF) | payer MEDICARE, SELFPAY ==
[2024-09-07 08:31] LABS: MANUAL DIFF FLAG NO
[2024-09-07 08:48] LABS: Basophils Percent Auto 0.8 % (0-2); Eosinophils Absolute Auto 0.2 X10*3/uL (0.0-0.4); Eosinophils Percent Auto 3.1 % (0-4); Hematocrit 36.1 % (37.0-47.0); Hemoglobin 12.1 g/dl (12.0-16.0); Imm Gran Abs Auto 0.02 X10*3/uL (0.00-0.03); Imm Gran Pct Auto 0.4 % (0.0-0.4); Lymphocytes Absolute Auto 1.1 X10*3/uL (1.2-4.9); Lymphocytes Percent Auto 22.9 % (20-40); Mean Corpuscular HGB Conc 33.5 g/dl (31.0-35.0); Mean Corpuscular Hemoglobin 27.3 pg (27.0-33.0); Mean Corpuscular Volume 81.5 fL (80.0-98.0); Mean Platelet Volume 9.4 fL (9.4-12.3); Monocytes Absolute Auto 0.5 X10*3/uL (0.1-1.2); Monocytes Percent Auto 9.2 % (2-11); Neutrophils Absolute Auto 3.1 x10*3/uL (2.0-8.3); Neutrophils Percent Auto 63.6 % (45-73); Platelet Count 281 X10*3/uL (160-400); Red Blood Count 4.43 X10*6/uL (4.20-5.50); Red Cell Distribution Width 14.8 % (11.0-16.0); White Blood Count 4.9 X10*3/uL (4.8-10.8)
[2024-09-07 08:54] LABS: INTERNATIONAL NORM RATIO 0.9 (0.9-1.1); Prothrombin Time 10.6 SEC (10.9-12.4)
[2024-09-07 08:57] LABS: Partial Thromboplastin Time 29.8 SEC (26.0-36.8)
[2024-09-07 09:07] LABS: Estimated Average Glucose 117 mg/dL; Hemoglobin A1C 124.8435 umol/L; Hemoglobin A1c % 5.7 % (<6.0); Total Hemoglobin (HGBA1C) 3217.5944 umol/L
[2024-09-07 10:08] LABS: Alanine Aminotransferase 18 U/L (0-31); Albumin Level 4.4 g/dL (3.5-5.0); Alkaline Phosphatase 88 U/L (39-117); Anion Gap 15 (12-20); Aspartate Amino Transferase 23 U/L (5-31); Bilirubin Total 0.4 mg/dL (0.0-1.0); Blood Urea Nitrogen 17 mg/dL (9-16); C Reactive Protein 0.17 mg/dL (< or = 0.50); Calcium 9.7 mg/dL (8.4-10.2); Carbon Dioxide 22 mmol/L (22-29); Chloride 103 mmol/L (96-108); Cholesterol 165 mg/dL (<200); Estimated Glomerular Filt Rate 55; Glucose Random 95 mg/dL (60-115); HDL Cholesterol 87 mg/dL (>40); Iron 63 mcg/dL (30-160); LDL Cholesterol Calculated 63 mg/dL (<100); Percent Iron Saturation 18 % (15-50); Potassium 4.4 mmol/L (3.3-5.1); Sodium 136 mmol/L (135-145); Total Iron Binding Capacity 359 mcg/dL (228-428); Total Protein 7.4 g/dL (6.5-8.0); Triglycerides 76 mg/dL (<150); Unsaturated Iron Binding 296 ug/dL
[2024-09-07 10:17] LABS: Ferritin 25 ng/mL (10-250); TSH reflex Free T4 2.44 uIU/mL (0.32-4.0); Vitamin D 25-OH Total 26.3 ng/mL (>30)
[2024-09-07 10:43] LABS: Vitamin B12 409 pg/mL (200-900)
[2024-09-07 11:38] LABS: Insulin 14 uU/mL (2-29)
[2024-09-11 00:05] LABS: Zinc 62 mcg/dL (60-130)
[2024-09-13 14:39] LABS: Vitamin B1 14 nmol/L (8-30)
[2024-09-13 18:54] LABS: Vitamin A 41 mcg/dL (38-98)
== END 2024-09-07 08:02 | disposition home or self-care (01) ==
LOC: HO.LAB 08:01
PROVIDERS: PCP Internal Medicine; Visit Provider Surgery
DX: Z01.812 Encounter for preprocedural laboratory examination (principal); Z13.1 Encounter for screening for diabetes mellitus
CPT/HCPCS: 36415; 80053; 80061; 82306; 82607; 82728; 83036; 83525; 83540; 84425; 84443; 84590; 84630; 85025; 85610; 85730; 86140

== ENCOUNTER 2024-09-10 18:22 | Emergency (ER) | payer MEDICARE, SELFPAY ==
--- NOTE | ~2024-09-10 | XR_ITS ---
EXAMINATION: XR CHEST CLINICAL INFORMATION: Chest pain COMPARISON: 06/26/2024 TECHNIQUE: 2 views of the chest were obtained. FINDINGS: Biconvex thoracolumbar scoliosis is present. Some bandlike atelectasis is present at the left lung base. No consolidations, pleural effusions or CHF. Just curious, degenerative dated female reminded her few hours ago XR/XR chest 2V IMPRESSION: No acute intrathoracic disease. Electronically signed by: Ricky Pereira MD 09/10/2024 07:17 PM CLAUDIA [facility]
[2024-09-10 18:24] VITALS: BP 133/77; PULSE 91; RESP 16; TEMP 36.3; O2SAT 97; BMI 29.1
--- NOTE | 2024-09-10 18:25 | ED_ITS ---
HPI - SOB/Dyspnea General Chief Complaint: Chest Pain Stated Complaint: SOB Time Seen by Provider: 09/10/24 21:08 Source: patient Mode of arrival: ambulatory Limitations: no limitations History of Present Illness ED Provider: braden LYONS Narrative: patient's history of hiatal hernia plan to get surgery next week comes here for similar mid chest pain having shake which improved off its own during stay in the ER no chest pain or discomfort in the mid chest at this time shortness a breath vitals are stable patient's labs done prior to my evaluation reveals normal troponin normal EKG normal chest x-ray Related Data Home Medications ?Medication ?Instructions ?Recorded ?Confirmed fluticasone propionate 50 1 spray intranasal DAILY PRN 08/08/20 08/26/24 mcg/actuation nasal Allergic Symptoms spray,suspension albuterol sulfate 90 mcg/actuation 2 puff inhalation Q6H PRN 10/22/21 08/26/24 aerosol inhaler (Ventolin HFA) Respiratory Distress acetaminophen 500 mg tablet 1,000 mg PO Q6H PRN Pain 07/24/22 08/26/24 (Tylenol Extra Strength) aspirin 81 mg tablet,delayed 81 mg PO DAILY 07/24/22 08/26/24 release (Adult Low Dose Aspirin) carvedilol 25 mg tablet 1 tab PO BID 10/24/22 08/26/24 lisinopril 20 mg tablet 1 tab PO DAILY 10/24/22 08/26/24 magnesium chloride 71.5 mg 1 tab PO DAILY 10/24/22 08/26/24 (magnesium chloride) tablet,delayed release (Slow-Mag) alendronate 70 mg tablet 70 mg PO TH@0900 06/26/24 08/26/24 omeprazole 40 mg capsule,delayed 40 mg PO DAILY@0630 06/26/24 08/26/24 release Previous Rx's ?Medication ?Instructions ?Recorded atorvastatin 40 mg tablet 40 mg PO BEDTIME #30 tabs 05/27/21 amlodipine 5 mg tablet 5 mg PO DAILY #30 tabs 10/26/22 buspirone 10 mg tablet 10 mg PO BID #180 tabs 04/11/24 paroxetine HCl 30 mg tablet 30 mg PO BEDTIME #90 tabs 04/11/24 magnesium oxide 800 mg (2 x 400 mg magnesium) PO 06/28/24 DAILY #14 tabs ondansetron 4 mg disintegrating 4 mg PO Q12H nausea and vomiting 08/26/24 tablet #20 tabs pantoprazole 40 mg tablet,delayed 40 mg PO DAILY #90 tabs 08/26/24 release polyethylene glycol 3350 17 17 g PO DAILY #238 grams 08/26/24 gram/dose oral powder sucralfate 100 mg/mL oral 10 ml PO BID #600 mL 08/26/24 suspension Allergies Allergy/AdvReac Type Severity Reaction Status Date / Time Codeine Sulfate Allergy Severe Anaphylaxis Verified 09/10/24 18:28 Antihistamine Allergy Intermediate Shakiness Verified 09/10/24 18:28 egg Allergy Intermediate Heartburn Verified 09/10/24 18:28 Sulfa (Sulfonamide Allergy Intermediate RASH Verified 09/10/24 18:28 Antibiotics) [SULFA (SULFONAMIDE ANTIBIOTICS)] diphenhydramine Allergy sweats, Verified 09/10/24 18:28 [From Benadryl] palpitation cefuroxime AdvReac delerium Verified 09/10/24 18:28 ,paranoia Review of Systems 2 Review of Systems: Yes all other systems are reviewed and are negative PMFSH Past Medical History Medical History Generalized anxiety disorder Mood disorder, drug-induced Diaphragmatic hernia Panic disorder [episodic paroxysmal anxiety] Dysthymia Hypertension Diverticulitis CVA (cerebral vascular accident) Vertigo Tubular adenoma of colon Positive colorectal cancer screening using Cologuard test Irritable bowel syndrome with both constipation and diarrhea GERD (gastroesophageal reflux disease) Depression with anxiety HTN (hypertension), benign Lupus Surgical History H/O wrist surgery Hx of colonoscopy History of cholecystectomy Family History Family History Father CAD (coronary artery disease) Maternal Grandmother HTN (hypertension), benign Father No problems noted. Mother Hypertension Asthma COPD (chronic obstructive pulmonary disease) Social History Social History Household Members: None Household Members Other:: 1 Housing: House Do you presently have visiting nurse or other home services: No Alcohol intake: never Patient Tobacco Use Status: Never used Tobacco Tobacco use type: Cigarette Years Smoked: quit greater than 10 years ago Smoked in Last 30 Days: No Second Hand Smoke Exposure: No Use of substances other than those prescribed or required for medical reasons: No Advance Directives: Yes Advance Directives on File: Yes Advance Directives Date on File: 04/07/23 service: No Current occupational status: retired 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 Oriented X3. No acute distress. ENT: Pharynx normal. Oral Mucosa moist Neck: Normal inspection. Neck supple. CVS: Normal heart rate and rhythm. Pulses normal. Respiratory: No respiratory distress. Equal air entry bilateral, no wheezing/rales/rhonchi Abdomen: Soft and nontender. Bowel sounds are present, Skin: Skin warm and dry. Normal skin color. Normal skin turgor. Extremities: No lower extremity edema. No calf tenderness Neuro: Oriented X 3. No motor deficit. Course Course Course Narrative: This is an RME performed by Geri Alonso CNP: Additional HPI, ROS, PE not included below will be deferred to primary provider. Patient is a 74-year-old female who presents emergency department for evaluation, she Reports admitted 3 weeks ago for a few days for pneumonia, reports having completed her outpatient antibiotic. Reports that she went for a walk today, upon returning home she developed pain to her substernal chest described as a tightness and squeezing with onset approximately 15:00, felt cold and endorsed associated shortness of breath. Symptoms are somewhat improving remain present Plan: EKG, serum labs, CXR Medical Decision Making Medical Decision Making [facility] Narrative: Patient has subjective mid chest pain and shortness a breath after having protein shake with history of hiatal hernia workup is negative patient feeling much better during stay in the ER patient advised to have decreased amount of shakes at once Lab Data MDM Lab Attestation statement: I reviewed the patient's lab results. 09/10/24 18:56 09/10/24 18:56 Labs: Lab Results 09/10/24 Range/Units 18:56 WBC 6.1 (4.8-10.8) X10*3/uL RBC 4.29 (4.20-5.50) X10*6/uL Hgb 11.6 L (12.0-16.0) g/dl Hct 34.1 L (37.0-47.0) % MCV 79.5 L (80.0-98.0) fL MCH 27.0 (27.0-33.0) pg MCHC 34.0 (31.0-35.0) g/dl RDW 14.6 (11.0-16.0) % Plt Count 300 (160-400) X10*3/uL MPV 9.2 L (9.4-12.3) fL Immature Gran % (Auto) 0.2 (0.0-0.4) % Neut % (Auto) 66.9 (45-73) % Lymph % (Auto) 22.6 (20-40) % [place] % (Auto) 7.1 (2-11) % Eos % (Auto) 2.5 (0-4) % Baso % (Auto) 0.7 (0-2) % Lymph # (Auto) 1.4 (1.2-4.9) X10*3/uL [place] # (Auto) 0.4 (0.1-1.2) X10*3/uL Eos # (Auto) 0.2 (0.0-0.4) X10*3/uL Baso # (Auto) 0.0 (0.0-0.2) X10*3/uL Abs Immat Gran (auto) 0.01 (0.00-0.03) X10*3/uL Absolute Neuts (auto) 4.1 (2.0-8.3) x10*3/uL Absolute Nucleated RBC 0.000 (0.0-0.012) X10*3/uL Nucleated RBC % (auto) 0.0 (0.0-0.2) /100WBC PT 10.6 L (10.9-12.4) SEC INR 0.9 (0.9-1.1) Sodium 134 L (135-145) mmol/L Potassium 4.2 (3.3-5.1) mmol/L Chloride 103 (96-108) mmol/L Carbon Dioxide 18 L (22-29) mmol/L Anion Gap 17 (12-20) BUN 10 (9-16) mg/dL Creatinine 0.94 (0.5-1.4) mg/dL Estim Creat Clear Calc 44.3 Estimated GFR 58 Random Glucose 125 H (60-115) mg/dL Calcium 9.1 D (8.4-10.2) mg/dL Total Bilirubin 0.4 (0.0-1.0) mg/dL AST 26 (5-31) U/L ALT 14 (0-31) U/L Alkaline Phosphatase 76 (39-117) U/L Troponin I High Sens < 2.7 (<3.5-17.0) ng/L B-Natriuretic Peptide 18 (<100) pg/mL Total Protein 7.3 (6.5-8.0) g/dL Albumin 4.3 (3.5-5.0) g/dL Influenza Type A (PCR) NEGATIVE (Negative) Influenza Type B (PCR) NEGATIVE (Negative) RSV RNA Qual (PCR) NEGATIVE (Negative) SARS-CoV-2 RNA (RT-PCR) NEGATIVE (Negative) Independent Interpretation I performed an independent interpretation of an: EKG Interpretation: Normal sinus rhythm heart rate 90 beats per minute normal interval axis no acute STT wave changes no acute ischemia Discharge Plan Discharge Clinical Impression: Hernia, hiatal Patient Disposition: Home, Self-Care Instructions: Hiatal Hernia (ED) Additional Instructions: Diet and cautions as advised Follow up with your surgeon/GI Prescriptions: No Action atorvastatin 40 mg Tablet 40 mg PO BEDTIME Qty: 30 0RF carvedilol 25 mg tablet 1 tab PO BID lisinopril 20 mg tablet 1 tab PO DAILY Slow-Mag 71.5 mg tablet,delayed release (DR/EC) 1 tab PO DAILY amlodipine 5 mg Tablet 5 mg PO DAILY Qty: 30 0RF Protocol: Hold for SBP< HOLD for SBP < : 90 omeprazole 40 mg capsule,delayed release(DR/EC) 40 mg PO DAILY@0630 alendronate 70 mg tablet 70 mg PO TH@0900 Rx Instructions: Take 1 tab once weekly, 1st thing in the morning, on an empty stomach, with a large glass of water (at least 6 oz) and stay upright for 30 minutes magnesium oxide 400 mg magnesium tablet 800 mg PO DAILY Qty: 14 0RF fluticasone propionate 50 mcg/actuation spray,suspension 1 spray intranasal DAILY PRN (Reason: Allergic Symptoms) albuterol sulfate [Ventolin HFA] 90 mcg/actuation HFA aerosol inhaler 2 puff inhalation Q6H PRN (Reason: Respiratory Distress) aspirin [Adult Low Dose Aspirin] 81 mg tablet,delayed release (DR/EC) 81 mg PO DAILY acetaminophen [Tylenol Extra Strength] 500 mg tablet 1,000 mg PO Q6H PRN (Reason: Pain) buspirone 10 mg tablet 10 mg PO BID Qty: 180 1RF paroxetine HCl 30 mg tablet 30 mg PO BEDTIME Qty: 90 1RF pantoprazole 40 mg tablet,delayed release (DR/EC) 40 mg PO DAILY Qty: 90 0RF sucralfate 100 mg/mL suspension 10 ml PO BID Qty: 600 2RF ondansetron 4 mg tablet,disintegrating 4 mg PO Q12H Qty: 20 0RF Rx Instructions: Only take one every 12 hours as needed if you have nausea polyethylene glycol 3350 17 gram/dose powder 17 g PO DAILY Qty: 238 0RF Rx Instructions: Mix each measuring cup with 8oz of water, Crystal light, or Gatorade zero, or Propel and do 7 measuring cups on 09/11/24 and another 7 measuring cups on 09/12/24 Interventions: ED Discharge Assessment Last Done: 09/10/24 21:57 Discharge Date/Time: 09/10/24 21:57 Print Language: Vietnamese
--- NOTE | 2024-09-10 18:29 | ECG_ITS ---
Test Reason : CHEST PAIN Blood Pressure : / mmHG Vent. Rate : 090 BPM Atrial Rate : 090 BPM P-R Int : 154 ms QRS Dur : 072 ms QT Int : 362 ms P-R-T Axes : 026 -02 012 degrees QTc Int : 442 ms Normal sinus rhythm Inferior infarct , age undetermined Cannot rule out Anterior infarct (cited on or before 04-JUN-2024) Abnormal ECG When compared with ECG of 26-JUN-2024 03:48, No significant change was found Referred By: Abbie Alonso Electronically Signed By:SHANTELLE GU MD
[2024-09-10 19:04] LABS: MANUAL DIFF FLAG NO
[2024-09-10 19:06] LABS: Basophils Percent Auto 0.7 % (0-2); Eosinophils Absolute Auto 0.2 X10*3/uL (0.0-0.4); Eosinophils Percent Auto 2.5 % (0-4); Hematocrit 34.1 % (37.0-47.0); Hemoglobin 11.6 g/dl (12.0-16.0); Imm Gran Abs Auto 0.01 X10*3/uL (0.00-0.03); Imm Gran Pct Auto 0.2 % (0.0-0.4); Lymphocytes Absolute Auto 1.4 X10*3/uL (1.2-4.9); Lymphocytes Percent Auto 22.6 % (20-40); Mean Corpuscular Volume 79.5 fL (80.0-98.0); Mean Platelet Volume 9.2 fL (9.4-12.3); Monocytes Absolute Auto 0.4 X10*3/uL (0.1-1.2); Monocytes Percent Auto 7.1 % (2-11); Neutrophils Absolute Auto 4.1 x10*3/uL (2.0-8.3); Neutrophils Percent Auto 66.9 % (45-73); Platelet Count 300 X10*3/uL (160-400); Red Blood Count 4.29 X10*6/uL (4.20-5.50); Red Cell Distribution Width 14.6 % (11.0-16.0); White Blood Count 6.1 X10*3/uL (4.8-10.8)
[2024-09-10 19:11] LABS: INTERNATIONAL NORM RATIO 0.9 (0.9-1.1); Prothrombin Time 10.6 SEC (10.9-12.4)
[2024-09-10 19:22] LABS: Alanine Aminotransferase 14 U/L (0-31); Albumin Level 4.3 g/dL (3.5-5.0); Alkaline Phosphatase 76 U/L (39-117); Anion Gap 17 (12-20); Aspartate Amino Transferase 26 U/L (5-31); Bilirubin Total 0.4 mg/dL (0.0-1.0); Blood Urea Nitrogen 10 mg/dL (9-16); Calcium 9.1 mg/dL (8.4-10.2); Carbon Dioxide 18 mmol/L (22-29); Chloride 103 mmol/L (96-108); Creatinine Clr Calc Pharmacy 44.3; Estimated Glomerular Filt Rate 58; Glucose Random 125 mg/dL (60-115); Potassium 4.2 mmol/L (3.3-5.1); Sodium 134 mmol/L (135-145); Total Protein 7.3 g/dL (6.5-8.0)
[2024-09-10 19:25] LABS: B Type Natriuretic Peptide 18 pg/mL (<100)
[2024-09-10 19:30] LABS: Troponin-I High Sensitivity < 2.7 ng/L (<3.5-17.0)
[2024-09-10 19:43] VITALS: BP 124/84; PULSE 82; RESP 18; TEMP 36.3; O2SAT 96
[2024-09-10 19:43] LABS: Influenza A PCR NEGATIVE (Negative); Influenza B PCR NEGATIVE (Negative); Resp Syncy Virus RNA Qual PCR NEGATIVE (Negative); SARS COV2 PCR INHOUSE NEGATIVE (Negative)
[2024-09-10 21:46] VITALS: BP 126/70; PULSE 82; RESP 13; TEMP 36.4; O2SAT 95
[2024-09-10 21:57] VITALS: BP 126/70; PULSE 82; RESP 13; TEMP 36.4; O2SAT 95
== END 2024-09-10 21:57 | disposition home or self-care (01) ==
PROVIDERS: Nurse Practitioner Family; Emergency Provider Internal Medicine; PCP Internal Medicine
DX: K44.9 Diaphragmatic hernia without obstruction or gangrene (principal); R06.02 Shortness of breath; Z03.818 Encounter for observation for suspected exposure to other biological agents ruled out; I10 Essential (primary) hypertension; E78.5 Hyperlipidemia, unspecified; J45.909 Unspecified asthma, uncomplicated; M32.9 Systemic lupus erythematosus, unspecified; Z79.02 Long term (current) use of antithrombotics/antiplatelets; Z79.899 Other long term (current) drug therapy
CPT/HCPCS: 0241U; 71046; 80053; 83880; 84484; 85025; 85610; 93005; 99283; 99285

== ENCOUNTER → 2024-09-10 18:29 | Outpatient (BNV) | payer MEDICARE, SELFPAY | PROVIDERS: Emergency Provider Internal Medicine; PCP Internal Medicine; Visit Provider Internal Medicine Cardiovascular Disease | DX: R94.31 Abnormal electrocardiogram [ECG] [EKG] (principal) | CPT/HCPCS: 93010 ==

== ENCOUNTER 2024-09-13 06:11 | Inpatient (IN) | payer MEDICARE, SELFPAY ==
[2024-09-13] VITALS (9 sets, daily range): BP systolic 102–133; BP diastolic 35–71; PULSE 76–102; RESP 13–18; TEMP 35.8–36.7; O2SAT 93–98; BMI 28.1
[2024-09-13] MEDS: Lactated Ringers 1,000 ML 999 ML IV (06:34)
[2024-09-13] MEDS: Aprepitant 32 MG/4.4 ML VIAL IVPUSH (07:04)
--- NOTE | 2024-09-13 07:28 | P.CONAN_ITS ---
[facility] Active Problems Active Problems: All Active Problems Generalized anxiety disorder (Acute) Mood disorder, drug-induced (Acute) Cognitive impairment (Acute) Major depression with psychotic features (Acute) Confused but orients easily (Acute) CVA (cerebral vascular accident) (Acute) Abnormal EKG (Acute) Diaphragmatic hernia (Acute) Pneumonia (Acute) Abdominal pain (Acute) Osteoporosis with pathological fracture (Acute) Fracture of right ulnar styloid (Acute) Panic disorder [episodic paroxysmal anxiety] (Acute) Dysthymia (Acute) Fracture of right distal radius (Acute) Sinusitis (Acute) Headache (Acute) Vitamin D deficiency (Acute) 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 (Acute) Drug-induced diarrhea (Acute) Hypomagnesemia (Acute) Trochanteric bursitis of both hips (Acute) Systemic lupus erythematosus (Acute) Anemia (Acute) Poor balance (Acute) Acute hyponatremia (Acute) Dysuria (Acute) Greater trochanteric pain syndrome of both lower extremities (Acute) Lupus (Acute) Depression with anxiety (Acute) GERD (gastroesophageal reflux disease) (Acute) Irritable bowel syndrome with both constipation and diarrhea (Acute) Past Medical History Medical History Generalized anxiety disorder Mood disorder, drug-induced Diaphragmatic hernia Panic disorder [episodic paroxysmal anxiety] Dysthymia Hypertension Diverticulitis CVA (cerebral vascular accident) Vertigo Tubular adenoma of colon Positive colorectal cancer screening using Cologuard test Irritable bowel syndrome with both constipation and diarrhea GERD (gastroesophageal reflux disease) Depression with anxiety HTN (hypertension), benign Lupus Family History Family History Father CAD (coronary artery disease) Maternal Grandmother HTN (hypertension), benign Father No problems noted. Mother Hypertension Asthma COPD (chronic obstructive pulmonary disease) Family history of problems with anesthesia: No Surgical History Surgical History H/O wrist surgery Hx of colonoscopy History of cholecystectomy History of Problems with Anesthesia: No Social History Social History Household Members: None Household Members Other:: niece lives upstairs Housing: House Are you a primary director of patient care to a significant other at home: No Do you presently have visiting nurse or other home services: No Alcohol intake: never Patient Tobacco Use Status: Former Tobacco user Tobacco use type: Cigarette Years Smoked: quit greater than 10 years ago Second Hand Smoke Exposure: No Have you been hit, kicked, punched, or otherwise hurt by someone within the past year? 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 Meds Allergies Allergy/AdvReac Type Severity Reaction Status Date / Time Codeine Sulfate Allergy Severe Anaphylaxis Verified 09/13/24 06:13 Antihistamine Allergy Intermediate Shakiness Verified 09/13/24 06:13 egg Allergy Intermediate Heartburn Verified 09/13/24 06:13 Sulfa (Sulfonamide Allergy Intermediate RASH Verified 09/13/24 06:13 Antibiotics) [SULFA (SULFONAMIDE ANTIBIOTICS)] diphenhydramine Allergy sweats, Verified 09/13/24 06:13 [From Benadryl] palpitation cefuroxime AdvReac delerium Verified 09/13/24 06:13 ,paranoia Home Medications ?Medication ?Instructions ?Recorded ?Confirmed ?Last Taken ?Type fluticasone propionate 50 1 spray intranasal DAILY PRN 08/08/20 09/13/24 09/12/24 History mcg/actuation nasal Allergic Symptoms spray,suspension albuterol sulfate 90 mcg/actuation 2 puff inhalation Q6H PRN 10/22/21 09/13/24 09/12/24 History aerosol inhaler (Ventolin HFA) Respiratory Distress acetaminophen 500 mg tablet 1,000 mg PO Q6H PRN Pain 07/24/22 09/13/24 Unknown History (Tylenol Extra Strength) aspirin 81 mg tablet,delayed 81 mg PO DAILY 07/24/22 09/13/24 09/06/24 History release (Adult Low Dose Aspirin) carvedilol 25 mg tablet 1 tab PO BID 10/24/22 09/13/24 09/13/24 History lisinopril 20 mg tablet 1 tab PO DAILY 10/24/22 09/13/24 09/13/24 History magnesium chloride 71.5 mg 1 tab PO DAILY 12/09/13/24 06/25/24 History (magnesium chloride) tablet,delayed release (Slow-Mag) alendronate 70 mg tablet 70 mg PO TH@0900 06/26/24 09/13/24 09/09/24 History amitriptyline 10 mg tablet 10 mg PO BEDTIME 09/13/24 09/13/24 Unknown History chlordiazepoxide HCl 5 mg capsule 5 mg PO TID PRN anxiety 09/13/24 09/13/24 Unknown History Exam Height,Weight and Vital Signs: Height 5 ft Weight 65.317 kg Last Vital Signs Temp 98.0 F 09/13/24 07:26 Pulse 76 09/13/24 07:26 Resp 18 09/13/24 07:26 BP 116/64 09/13/24 07:26 Pulse Ox 98 09/13/24 07:26 O2 Del Method Room Air 09/13/24 07:26 Pertinent Lab Results Pertinent Lab Results: Laboratory Tests 09/07/24 08:12 Blood Type B Positive Antibody Screen NEGATIVE Airway Mallampati Class: II TM Dist: >3cm Neck ROM: Full Denture: Upper Partial: Lower Loose/Missing/Broken Teeth: Yes, Upper and Lower Heart: RRR Lungs: CTA Assessment and Plan Assessment Anesthesia Assessment: Anesthesia Plan Discussed and Chart Reviewed Final Anesthetic Review Family History of Problems with Anesthesia: No History of Problems with Anesthesia: No NPO: Yes ASA Class: II and III Final Preanesthetic Review: Meds/Allgs Chart Reviewed, Consent Obtained/Reviewed and Anes Risks/Benef Reviewed Patient Risk: Intermediate Procedure Risk: Intermediate Anesthetic Plan Anesthetic Plan: GA Disposition: Standard PACU
--- NOTE | 2024-09-13 07:33 | MHC.SHP ---
Pre-Procedural Eval Section A - 24 Hr Update-Section A only Date of Service: 09/13/24 The patient is an INPATIENT: Yes The patient has been examined within 24 hours of the surgical procedure. The History & Physical has been completed within 30 days and I have reviewed it.: No Section B - Complete if H&P > 30 days Chief Complaint: Diaphragmatic hernia Relevant Family History (Specify if Yes): No Relevant Social History: None Present Medications: None Medical History: No relevant PMH History of Previous Operations: No relevant previous surgery Allergies: Allergies Allergy/AdvReac Type Severity Reaction Status Date / Time Codeine Sulfate Allergy Severe Anaphylaxis Verified 09/13/24 06:13 Antihistamine Allergy Intermediate Shakiness Verified 09/13/24 06:13 egg Allergy Intermediate Heartburn Verified 09/13/24 06:13 Sulfa (Sulfonamide Allergy Intermediate RASH Verified 09/13/24 06:13 Antibiotics) [SULFA (SULFONAMIDE ANTIBIOTICS)] diphenhydramine Allergy sweats, Verified 09/13/24 06:13 [From Benadryl] palpitation cefuroxime AdvReac delerium Verified 09/13/24 06:13 ,paranoia Review of Systems Sugical H&P ROS: Negative: Constitution, Cardiovascular, Respiratory, Neurological, Psychiatric, Hem-Onc, Allergic/Immunologic, Gastrointestinal, Genitourinary, Musculoskeletal, Integumentary, Endocrine and Eyes/Ears/Nose/Throat Exam Surgical H&P Exam: Normal: HEENT, Normal: Heart, Normal: Lungs, Normal: Extremities, Normal: Abdomen, Normal: Skin and Normal: Neurological Plan Diagnosis/Plan: Unchanged I have reviewed the history and physical and performed a pertinent physical examination on my patient. No changes have occurred unless specified. Time Spent With Patient Time: Total time managing care of this patient today ____ minutes.
--- NOTE | 2024-09-13 07:46 | PHA.MEDREC ---
Pharmacy Consult ? Medication Reconciliation Pharmacy has reviewed the medication reconciliation completed nursing. Some changes were made after speaking with pt. Pt is no longer on omeprazole or mag oxide. Pt is also on chlordiazepoxide and amitriptyline. Pt states she is no longer on olanzapine.
[2024-09-13] MEDS: levoFLOXacin/D5W 500 MG/100 ML PIGGYBACK 100 MG IV (07:55)
--- NOTE | 2024-09-13 11:55 | P.F2F_ITS ---
Service Date Service Date: 09/13/24 Encounter Date of encounter: 09/13/24 Reasons for Services Signs and symptoms assessed: medication management Reason for [facility]: medication management Homebound: Leaving the home is medically contraindicated at this time without the asist of a device and/or another person due th the listed conditions above and below. Reason homebound: weakness related to hospital stay Certification: Based on the above findings, I certify that this patient is confined to the home and needs intermittent [facility] care, physical therapy and/or speech therapy, or continues to need occupational therapy. The patient is under my ca re, and I have initiated the establishment of the plan of care. The patient will be followed by a physician who will periodically review the plan of care. Time Spent With Patient Time: Total time managing care of this patient today ____ minutes.
--- NOTE | 2024-09-13 11:56 | PM.DS ---
DS: Providers Provider Date of Service: 09/15/24 Date of admission: 09/13/24 06:11 Primary care physician: Arnulfo Villalba MD DS: Summary Hospital Course Hospital Course: ADMITTING DIAGNOSIS: diaphragmatic hernia, gerd, anxiety, panic do, SLE, depression ? DISCHARGE DIAGNOSIS: same, s/p repair diaphragmatic hernia, extensive lysis of adhesions ? PAST SURGICAL HISTORY: cholecystectomy ? PROCEDURE: upper endoscopy, laparoscopic repair of diaphragmatic hernia ? DISCHARGE SUMMARY: ? History of Present Illness: ? The patient is a?74 year-old woman with a BMI of?28.1 kg/m2 and associated co-morbidities as described above. The patient had extensive work-up and was electively scheduled for laparoscopic, possible open repair of diaphragmatic hernia. Risks and complications of the surgery were discussed with the patient in advance, particularly the possibility of , pulmonary embolism, anastomotic leak, bleeding, bowel injury, GERD, cardiac, renal or pulmonary complications. The patient understood all the risks and was in agreement with the surgical plan. ? Hospital Course: ? The patient underwent an uneventful laparoscopic repair of diaphragmatic hernia with gastropexy on the day of admission. Postoperatively, the patient was transferred to the surgical floor. The patient received IV Acetaminophen and IV dilaudid for pain control. Patient was started on bariatric phase 1 diet POD #0. On postoperative day one, the patient was feeling well without nausea, vomiting, fevers, or tachycardia. The patient had some mild incisional pain and the abdomen was soft. Given multiple medications usage, we elected to keep her in the hospital for medication management and adjustment as well as to arrange for VNA. ? On the morning of postoperative day one, the patient was continued on 1 ounce of water or ice every half hour. During the day, the patient did fairly well, having some incisional pain, but able to ambulate adequately and to tolerate liquids well. ? Since the patient is doing well, we decided that the patient was ready to be discharged on post op day 2. The patient was given instructions to follow-up with me next week and to call my office for any fever over 101, persistent abdominal pain, nausea, vomiting, GERD, symptoms of DVT such as calf tenderness, or leg swelling, or pulmonary embolism such as chest pain or shortness of breath. The patient was also instructed to drink 40-60 ounces of liquids per day using the 1-ounce cups. The patient had been given prescriptions for Tylenol for pain, Zofran prn for nausea, and pantoprazole and carafate previously. The patient was encouraged to ambulate and use the incentive spirometer. The patient was allowed to shower, but no baths, and encouraged to stay active at home. All of these instructions were given to the patient personally. All questions were answered and the patient understood all instructions, the instructions were also given to the patient in print. Time Attestation Total time managing care of this patient today: 25 mintues. Discharge Coordination Time (in mins): 25 Quality: Safe Use of Opioids Does Pt have an Active Cancer Diagnosis on the Problem List?: No Quality: Stroke Does the patient have a stroke diagnosis?: No Physical Exam Vital Signs: Vital Signs: Last Vital Signs Temp 98.0 F 09/13/24 07:26 Pulse 76 09/13/24 07:26 Resp 18 09/13/24 07:26 BP 116/64 09/13/24 07:26 Pulse Ox 98 09/13/24 07:26 O2 Del Method Room Air 09/13/24 07:26 BMI result Body Mass Index 28.1 DS: Data Data Completed and Pending Completed studies during hospitalization [Text1]: Procedures Inspection of Upper Intestinal Tract, Via Natural or Artificial Opening Endoscopic (04/04/23) Transfusion of Nonautologous Red Blood Cells into Peripheral Vein, Percutaneous Approach (04/04/23) Pending studies at discharge: Pending at discharge 09/13/24 10:47 Surgical [PTH] Routine Discharge Plan Discharge Anticipated Discharge Date/Time: 09/15/24 10:00 Patient Disposition: Home Health Service Discharge Diagnosis: s/p laparoscopic repair of diaphragmatic hernia and lysis of adhesions Referrals: Arnulfo Villalba MD [Primary Care Provider] - 1 Week Discharge Medications: Continued atorvastatin 40 mg Tablet 40 mg PO BEDTIME Qty: 30 0RF carvedilol 25 mg tablet 1 tab PO BID lisinopril 20 mg tablet 1 tab PO DAILY Slow-Mag 71.5 mg tablet,delayed release (DR/EC) 1 tab PO DAILY amlodipine 5 mg Tablet 5 mg PO DAILY Qty: 30 0RF Protocol: Hold for SBP< HOLD for SBP < : 90 alendronate 70 mg tablet 70 mg PO TH@0900 Rx Instructions: Take 1 tab once weekly, 1st thing in the morning, on an empty stomach, with a large glass of water (at least 6 oz) and stay upright for 30 minutes chlordiazepoxide HCl 5 mg capsule 5 mg PO TID PRN (Reason: anxiety) amitriptyline 10 mg tablet 10 mg PO BEDTIME fluticasone propionate 50 mcg/actuation spray,suspension 1 spray intranasal DAILY PRN (Reason: Allergic Symptoms) albuterol sulfate [Ventolin HFA] 90 mcg/actuation HFA aerosol inhaler 2 puff inhalation Q6H PRN (Reason: Respiratory Distress) acetaminophen [Tylenol Extra Strength] 500 mg tablet 1,000 mg PO Q6H PRN (Reason: Pain) buspirone 10 mg tablet 10 mg PO BID Qty: 180 1RF paroxetine HCl 30 mg tablet 30 mg PO BEDTIME Qty: 90 1RF pantoprazole 40 mg tablet,delayed release (DR/EC) 40 mg PO DAILY Qty: 90 0RF sucralfate 100 mg/mL suspension 10 ml PO BID Qty: 600 2RF ondansetron 4 mg tablet,disintegrating 4 mg PO Q12H Qty: 20 0RF Rx Instructions: Only take one every 12 hours as needed if you have nausea Held aspirin [Adult Low Dose Aspirin] 81 mg tablet,delayed release (DR/EC) 81 mg PO DAILY Hold Instructions: until discussed with Dr Wiseman Discharge Orders: Discharge Order (Routine); Ordered 09/15/24 Ordered By: Justice Chaudhry Activity on Discharge: No heavy lifting Stand Alone Forms: Patient Portal Discharge page Print Language: Serbian Care Plan Goals: improved gerd Health Concerns: gerd Plan of Treatment: No tub baths, sex or returning to work until discussed at first post op appointment. No exercise, alcohol, tobacco or illegal drug use. Continue to use incentive spirometer hourly while awake. Walk in home for 5- 10 minutes every 2 hours during the first week. Follow all instructions in the bariatric handbook and call with any questions.Discharge Instructions 1. Please call your doctor or come back to the emergency room should any new symptoms arise. 2. You will receive a courtesy call from [facility] 24-48 hours after discharge. 3. Activity: abstain from alcohol, practice limited stair climbing, no bending, no driving, no exercise, no illicit substances, no lifting, no sex, no tub bath, no work. 4. Diet: continue as discussed with Dr. Wiseman. 5. Dressing Change/Wound Care: Your incision is covered by clear bandages and guaze underneath. If the area is tender, you may apply an ice pack for short intervals (no more than 20 minutes on, followed by at least 20 minutes off). Do not apply heat. Do not use creams, lotions, or topical antibiotics unless instructed to do so by your surgeon. These can cause infection or allergic reaction. 6. Call your doctor if: - Your temperature exceeds 101.5 F - You experience excessive pain or swelling - You have an unexpected reaction to medication - You have excessive bleeding - You experience continued vomiting/nausea - Your incision begins to separate - Your incision shows signs of infection such as increased redness, swelling, excessive pain, heat, or drainage (light blood or clear fluid is normal) 7. General instructions: No lifting greater than 5 lbs for 1 week and not more than 20lbs the next 3?weeks. No driving until seen at the office in 5-7 days after surgery. If you do not move your bowels in the next 2 days, please tell?Dr. Wiseman. Please walk around your home every hour or two to prevent blood clots from forming in your legs. You do not need to wake from sleeping to walk. Please sleep in a bed or couch to prevent kinking at the hips and knees. Please take your incentive spirometer (your lung specialty finishing utility person) home with you and use it for the next few days to prevent pneumonia. You may shower, no hot tubs, baths or swimming pools.?Please follow the post op diet instructions you are?given by Dr Wiseman? and text me daily at 5-6pm for an update.?If you have any issues or concerns or questions please communicate this to him via text.? The Celebrate shakes have all of the bariatric vitamins you need if you consume these shakes. If you are drinking other protein shakes, you will need to purchase the Celebrate multivitamins and calcium that are available in the hospital gift shop on the first floor of the main hospital.??Do not take anything without first discussing with Dr Wiseman. Please make sure you are consuming at least 40 ounces of fluids per day starting the?day AFTER your discharge from the hospital. Always drink 1-2 ml per minute using the 5ml?syringe. If you drink faster you may experience?bloating,?gas pain, burping, nausea or heartburn. In that case please slow down your pace and use the syringe to?understand better the?proper?pace and volume of drinking. Do not hesitate to contact the office with any questions at [phone]. 8. Please drink 12 oz of gatorade zero daily The patient's medical history has been reviewed and they are considered low risk for post op DVT and therefore DVT prophylaxis is not considered necessary. Travel after surgery was reviewed. The patient has not disclosed any travel plans during the first 30 days after surgery and they have been advised that within the first 30 days after surgery any bus, plane, train or car travel over 2 hours in duration is contraindicated due to the possibility of developing blood clots from immobility. Any travel, needs to include periods of ambulation of 10 minutes in duration every 2 hours.? The patient was instructed to discuss any plans for travel during this period with their bariatric surgeon. Assessment: stable s/p laparoscopic repair of diaphragmatic hernia
[2024-09-13 12:30] LABS: Hematocrit 32.4 % (37.0-47.0); Hemoglobin 10.8 g/dl (12.0-16.0)
--- NOTE | 2024-09-13 12:32 | PM.OP ---
Brief Operative Note Date of Service: 09/13/24 Pre-op diagnosis: Giant paraesophageal hernia Post-op diagnosis: same Procedure: Date of Service: 09/13/2024 Pre-op diagnosis: Paraesophageal hernia Post-op diagnosis: same (Giant paraesophageal hernia & abdominal adhesions) Procedure: Procedure: COMORBIDITIES: GERD, diaphragmatic hernia, hyperlipidemia, hypertension, CVA, anxiety, depression, hypertension, DJD, osteoporosis ?INDICATIONS: The patient is a 74 year old female who was referred to me from Dr. Alcala for a diaphragmatic hernia and GERD confirmed by EGD and CT chest/abdomen/pelvis. The patient is scheduled today for diaphragmatic hernia repair. Risks of recurrent hernia, dysphagia, persistent GERD, VTE, leak, infection and bleeding were discussed with the patient and he is in agreement with the plan. PROCEDURE: Esophago-gastroscopy, laparoscopic lysis of adhesions, laparoscopic repair of incarcerated diaphragmatic hernia and laparoscopic gastropexy. UNIQUELY DIFFICULT CASE DUE TO THE GIANT PARAESOPHAGEAL HERNIA AND EXTENSIVE INTRA-ABDOMINAL ADHESIONS REQUIRING 2 ADDITIONAL TROCARS DESCRIPTION OF PROCEDURE: After informed consent was obtained from the patient, the patient was given preoperative antibiotics, and was transferred to the operating room. After successful induction of general anesthesia, pneumatic compression devices were placed on both lower extremities. An upper endoscopy was performed next. The oropharynx and upper esophagus appeared to be within normal limits. Because of the paraesophageal hernia I was not able to pass the scope into the distal stomach. After all fluid and air were suctioned and the stomach was fully decompressed, the scope was withdrawn and secured in the mid esophagus. The patient was then prepped and draped in the usual sterile manner. Because of the previous open cholecystectomy through an upper midline incision, abdominal access was established at the left upper quadrant with the Veress needle. The abdomen was insufflated with CO2 to a pressure of 15 mmHg and a 5 mm Versi step port was placed at the left mid-abdomen. Under direct visualization, the Veress needle was removed and there was no injury where it was placed. It was exchanged with a 5 mm Versi-step port. An additional extra 5 mm Versi-step port was placed to the left of the umbilicus. All upper abdominal adhesions from the previous open cholecystectomy were lysed completely. Following that additional ports were placed, specifically two 5 mm Versi-step ports to the left upper and right upper quadrant, and a 12 mm Versi-Step port to the right upper quadrant. 1% lidocaine plain was used to infiltrate all port sites as well as all fascia defects. Following that, the patient was placed in a steep reverse Trendelenburg position. An additional 5 mm port was placed to the right flank for the Mediflex retractor that was used to retract the left lobe of the liver. There was a giant paraesophageal hernia with about half of the stomach herniated into the chest next to the esophagus. I then opened the gastrocolic ligament between the transverse colon and the greater curvature of the stomach with the ultrasonic device to enter the lesser sac and facilitate the ligation of the short gastric vessels. I started at at the upper third along the greater curvature and using the Thunderbeat, all attachments were divided. There was an obvious significant-sized paraesophageal hiatal hernia. The stomach was incarcerated into the mediastinum with multiple thick adhesions. Mobilization of the stomach was very difficult and required tedious and careful dissection. I continued dissecting along the hiatus toward the left selvin into the mediastinum mobilizing the hernia sac from the mediastinum. The esophagus was dissected off the aorta. The pars flaccida was opened. It was actually herniated into the hernia defect. The vena cava was dilated and it was carefully protected. I then continued by dissecting even further into the posterior retro-esophageal space all the way to the angle of His. I continued to mobilize the esophagus into the mediastinum circumferentially. The esophagus was densely adherent to the aorta and the majority of these adhesions were mobilized. Both vagal nerves were seen and preserved. The pleural spaces were not violated. With extensive circumferential dissection into the mediastinum, Because of the size of the hernia, extensive dissection within the mediastinum took place for over half of the mediastinum length. The esophagus was adherent posteriorly to the aorta and careful and tedious dissection was required to mobilize the esophagus as much as possible. I was able to bring the GE junction about 2cm below the crura. I closed the hernia defect with five interrupted #0 Surgidac sutures using the Endo Stitch device, three of which were placed posterior and two of which anterior to the esophagus. ? A gastropexy was then performed in order to prevent postoperative GERD and partial gastric volvulus. Several interrupted 2.0 Surgidac sutures were placed between the greater curvature of the dissected stomach and the previously divided greater omentum and gastro-colic ligament using the Endo-Stitch device. ?An upper endoscopy was performed. There was no narrowing at the GE junction or any esophageal injury. The scope was easily advanced all the way to the pylorus which was clearly visualized. There was no narrowing anywhere. I confirmed that the GE junction was 2cm intra-abdominally. At that point the gastroscope was withdrawn from the patient?s mouth while we were decompressing the bowel and the stomach from any remaining air. I looked into the lesser sac to see how the stomach was situating and it was situating well. There was no bleeding from the, spleen, or short gastric vessels. The Mediflex retractor was removed, and the undersurface of the liver was inspected and there was no bleeding. The patient was placed in supine position. Then 30cc of Ropivacaine plain with 10 mg of Dexamethasone were used to infiltrate the fascial closure as well as all skin incisions. At this point, the abdomen was deflated, all ports were removed under direct vision, and no bleeding was noted from any of the port sites. The skin incisions were irrigated with saline and were closed with 4-0 absorbable monofilament sutures. Steri-Strips and OpSites were used to cover all incisions. The patient was extubated and was transferred in stable condition to the recovery room for further care. I was present and performed all verduzco parts of the procedure. Mr Chaudhry was the medical assistant float. There were no residents to assist with this case. Aaron Wiseman MD, PhD, FACS Surgeon: Ant Wiseman MD Anesthesia: GETA, local and other (TAP block) Was an Art Librarian used for this Procedure?: Yes Art Librarian: Justice Chaudhry Estimated blood loss (mL): 10 IV fluids (mL): 2,800 Pathology: other (Gastro-esophageal fat pad) Condition: stable Disposition: PACU
[2024-09-13 12:48] LABS: Anion Gap 12 (12-20); Blood Urea Nitrogen 16 mg/dL (9-16); Calcium 8.6 mg/dL (8.4-10.2); Carbon Dioxide 19 mmol/L (22-29); Chloride 101 mmol/L (96-108); Creatinine Clr Calc Pharmacy 46.6; Estimated Glomerular Filt Rate > 60; Glucose Random 124 mg/dL (60-115); Potassium 4.4 mmol/L (3.3-5.1); Sodium 128 mmol/L (135-145)
--- NOTE | 2024-09-13 13:05 | P.PNGS_ITS ---
Subjective Subjective Date of Service: 09/14/24 Interval history: Feels well. Mild incisional pain. She is tolerating phase 1 bariatric diet Physical Exam 2 Vital Signs: Vital Signs: Last Vital Signs Temp 97.5 F 09/13/24 12:19 Pulse 77 09/13/24 12:19 Resp 16 09/13/24 12:19 BP 102/61 09/13/24 12:19 Pulse Ox 97 09/13/24 12:19 O2 Del Method Nasal Cannula 09/13/24 12:19 O2 Flow Rate 2 09/13/24 12:19 BMI result Body Mass Index 28.1 GI: Inspection: Yes normal to inspection, Yes incision (clean, dry and intact) and Yes obesity Palpation (GI): Soft to palpation Extrem: Right lower extremity: normal to inspection (no calf tenderness) L eft lower extremity: normal to inspection (no calf tenderness) Objective Data Active Medications Albuterol Sulfate (Albuterol Sulfate 90 Mcg 8 Gm Inhaler) 2 puff INHALE Q6H PRN PRN Reason: Respiratory Distress Amitriptyline HCl (Amitriptyline Hcl 10 Mg Tablet) 10 mg PO BEDTIME [facility] Amlodipine Besylate (Amlodipine Besylate 5 Mg Tablet) 5 mg PO DAILY [facility]; Protocol Buspirone HCl (Buspirone Hcl 10 Mg Tablet) 10 mg PO BID [facility] Carvedilol (Carvedilol 25 Mg Tablet) 25 mg PO BID [facility]; Protocol Chlordiazepoxide HCl (Chlordiazepoxide Hcl 5 Mg Capsule) 5 mg PO TID PRN PRN Reason: anxiety Fluticasone Propionate (Fluticasone Propionate Nasal 16 Gm [place]) 1 spray NOSTRIL-B DAILY PRN PRN Reason: Allergic Symptoms Hydromorphone HCl (Hydromorphone Hcl 0.5 Mg/0.5 Ml Syringe) 0.25 mg IVPUSH Q4H PRN; Protocol PRN Reason: Pain, Moderate(Pain Scale 4-6) Lactated Ringer's (Lr) 1,000 mls @ 100 mls/hr IVCONT .Q10H [facility] Acetaminophen (Ofirmev) 1,000 mg in 100 mls @ 16.7 mls/hr IV .Q6H [facility] Lisinopril (Lisinopril 20 Mg Tablet) 20 mg PO DAILY [facility]; Protocol Metoclopramide HCl (Metoclopramide Hcl 10 Mg/2 Ml Vial) 10 mg IVPUSH Q6H PRN PRN Reason: Nausea no effect from zofran Ondansetron HCl (Ondansetron Hcl 4 Mg/2 Ml Vial) 4 mg IVPUSH Q8H PRN PRN Reason: Nausea Pantoprazole Sodium (Pantoprazole Sodium 40 Mg/10 Ml Vial) 40 mg IVPUSH DAILY@0630 [facility] Paroxetine HCl (Paroxetine Hcl 30 Mg Tablet) 30 mg PO BEDTIME [facility] Sodium Chloride (0.9 % Sodium Chloride Flush 3 Ml Syringe) 3 ml IVFLUSH QSHIFT [facility] Labs 09/14/24 05:39 09/14/24 05:39 Labs: Laboratory Results - last 24 hr 09/13/24 12:23 Anion Gap 12 Estim Creat Clear Calc 46.6 Estimated GFR > 60 Random Glucose 124 H Calcium 8.6 Procedures Date of Service Date of Service: 09/14/24 Progress Note: A&P Assessment and plan (1) Paraesophageal hernia: Status: Acute Assessment and Plan: s/p laparoscopic lysis of adhesions, diaphragmatic hernia repair and gastropexy Doing well Will check am labs for hyponatermia. Will remain inpatient until this improves (2) S/P repair of paraesophageal hernia: Status: Acute (3) GERD (gastroesophageal reflux disease): Status: Acute (4) Depression with anxiety: Status: Acute (5) CVA (cerebral vascular accident): Status: Acute (6) HTN (hypertension), benign: Status: Acute (7) Hyperlipidemia: Status: Acute (8) Asthma: Status: Acute Time Spent With Patient Time: Total time managing care of this patient today ____ minutes. Quality Stroke Does the patient have a stroke diagnosis?: No VTE Prior VTE?: No VTE Risk Level:: Surgical - moderate VTE Device Contraindication: N/A - Device Ordered VTE Drug Contraindication: Treatment Not Indicated
[2024-09-13] MEDS: Lactated Ringers 1,000 ML 100 ML IVCONT (13:51)
[2024-09-13] MEDS: Acetaminophen 1,000 MG/100 ML PIGGYBACK 16.7 MG IV ×2 (18:08→23:57)
[2024-09-13] MEDS: busPIRone HCl 10 MG TABLET PO (20:16)
[2024-09-13] MEDS: carvediloL 25 MG TABLET PO (20:16)
[2024-09-13] MEDS: PARoxetine HCL 30 MG TABLET PO (20:16)
[2024-09-13] MEDS: 0.9 % Sodium Chloride Flush 3 ML SYRINGE IVFLUSH (20:21)
[2024-09-13] MEDS: 0.9 % Sodium Chloride 1,000 ML 100 ML IVCONT (20:47)
[2024-09-14] VITALS (8 sets, daily range): BP systolic 120–141; BP diastolic 63–71; PULSE 74–95; RESP 16–18; TEMP 36.2–37; O2SAT 92–97
[2024-09-14] MEDS: Pantoprazole Sodium 40 MG/10 ML VIAL IVPUSH (05:50)
[2024-09-14] MEDS: Acetaminophen 1,000 MG/100 ML PIGGYBACK 16.7 MG IV ×3 (05:50→18:06)
[2024-09-14] MEDS: 0.9 % Sodium Chloride 1,000 ML 100 ML IVCONT ×2 (05:50→16:42)
[2024-09-14 05:59] LABS: MANUAL DIFF FLAG NO
[2024-09-14 06:15] LABS: Anion Gap 18 (12-20); Blood Urea Nitrogen 13 mg/dL (9-16); Calcium 8.6 mg/dL (8.4-10.2); Carbon Dioxide 14 mmol/L (22-29); Chloride 103 mmol/L (96-108); Creatinine Clr Calc Pharmacy 46.6; Estimated Glomerular Filt Rate > 60; Glucose Random 100 mg/dL (60-115); Potassium 4.3 mmol/L (3.3-5.1); Sodium 131 mmol/L (135-145)
[2024-09-14 06:38] LABS: Basophils Percent Auto 0.1 % (0-2); Eosinophils Percent Auto 0.1 % (0-4); Hematocrit 33.5 % (37.0-47.0); Hemoglobin 11.1 g/dl (12.0-16.0); Imm Gran Abs Auto 0.04 X10*3/uL (0.00-0.03); Imm Gran Pct Auto 0.5 % (0.0-0.4); Lymphocytes Absolute Auto 0.6 X10*3/uL (1.2-4.9); Lymphocytes Percent Auto 7.7 % (20-40); Mean Corpuscular HGB Conc 33.1 g/dl (31.0-35.0); Mean Corpuscular Hemoglobin 27.7 pg (27.0-33.0); Mean Corpuscular Volume 83.5 fL (80.0-98.0); Mean Platelet Volume 9.6 fL (9.4-12.3); Monocytes Absolute Auto 0.6 X10*3/uL (0.1-1.2); Monocytes Percent Auto 7.7 % (2-11); Neutrophils Absolute Auto 6.8 x10*3/uL (2.0-8.3); Neutrophils Percent Auto 83.9 % (45-73); Platelet Count 246 X10*3/uL (160-400); Red Blood Count 4.01 X10*6/uL (4.20-5.50); Red Cell Distribution Width 14.6 % (11.0-16.0); White Blood Count 8.1 X10*3/uL (4.8-10.8)
[2024-09-14] MEDS: carvediloL 25 MG TABLET PO ×2 (08:04→20:48)
[2024-09-14] MEDS: amLODIPine Besylate 5 MG TABLET PO (08:05)
[2024-09-14] MEDS: lisinopriL 20 MG TABLET PO (08:05)
[2024-09-14] MEDS: busPIRone HCl 10 MG TABLET PO ×2 (08:05→20:49)
[2024-09-14] MEDS: PARoxetine HCL 30 MG TABLET PO (20:49)
[2024-09-15] MEDS: Acetaminophen 1,000 MG/100 ML PIGGYBACK 16.7 MG IV ×2 (00:01→05:55)
[2024-09-15] MEDS: 0.9 % Sodium Chloride 1,000 ML 100 ML IVCONT (02:29)
[2024-09-15 03:10] VITALS: BP 135/63; PULSE 74; RESP 17; TEMP 36.1; O2SAT 92
[2024-09-15] MEDS: Pantoprazole Sodium 40 MG/10 ML VIAL IVPUSH (05:55)
[2024-09-15 05:59] LABS: MANUAL DIFF FLAG NO
[2024-09-15 06:04] LABS: Basophils Percent Auto 0.4 % (0-2); Eosinophils Percent Auto 0.7 % (0-4); Hematocrit 30.2 % (37.0-47.0); Hemoglobin 9.8 g/dl (12.0-16.0); Imm Gran Abs Auto 0.03 X10*3/uL (0.00-0.03); Imm Gran Pct Auto 0.5 % (0.0-0.4); Lymphocytes Absolute Auto 1.1 X10*3/uL (1.2-4.9); Lymphocytes Percent Auto 20.4 % (20-40); Mean Corpuscular HGB Conc 32.5 g/dl (31.0-35.0); Mean Corpuscular Volume 83.2 fL (80.0-98.0); Mean Platelet Volume 9.1 fL (9.4-12.3); Monocytes Absolute Auto 0.5 X10*3/uL (0.1-1.2); Monocytes Percent Auto 8.6 % (2-11); Neutrophils Absolute Auto 3.8 x10*3/uL (2.0-8.3); Neutrophils Percent Auto 69.4 % (45-73); Platelet Count 203 X10*3/uL (160-400); Red Blood Count 3.63 X10*6/uL (4.20-5.50); Red Cell Distribution Width 15.1 % (11.0-16.0); White Blood Count 5.5 X10*3/uL (4.8-10.8)
[2024-09-15 06:27] LABS: Anion Gap 14 (12-20); Blood Urea Nitrogen 9 mg/dL (9-16); Calcium 8.4 mg/dL (8.4-10.2); Carbon Dioxide 17 mmol/L (22-29); Chloride 108 mmol/L (96-108); Creatinine Clr Calc Pharmacy 56.1; Estimated Glomerular Filt Rate > 60; Glucose Random 68 mg/dL (60-115); Sodium 135 mmol/L (135-145)
[2024-09-15 08:00] VITALS: BP 139/64; PULSE 69; RESP 16; TEMP 36.2; O2SAT 96
--- NOTE | 2024-09-15 09:01 | MHC.CM.PN ---
PT REPORTS SHE LIVES ALONE AND HER NIECE LIVES UPSTAIRS PT IS INDEPENDENT WITH CARE WITH NO DME OR SERVICES SHE HAS A HCP ON FILE SHE CONFIRMS IS ACCURATE PCP: DARCI ROBB IMM DELIVERED PT WILL DC HOME TODAY WITH [facility] TO TRANSPORT
[2024-09-15] MEDS: amLODIPine Besylate 5 MG TABLET PO (09:39)
[2024-09-15] MEDS: busPIRone HCl 10 MG TABLET PO (09:39)
[2024-09-15] MEDS: lisinopriL 20 MG TABLET PO (09:40)
[2024-09-15] MEDS: carvediloL 25 MG TABLET PO (09:40)
== END 2024-09-15 10:47 | disposition home health service (06) | DRG 328 ==
LOC: HO.SSSA 06:16 → HO.S3 12:02
PROVIDERS: Physician Assistant Surgical; Admitting Provider Surgery; PCP Internal Medicine; Visit Provider Surgery
PROC: 0BQT4ZZ Repair Diaphragm, Percutaneous Endoscopic Approach (ICD-10-PCS; principal; 2024-09-13 07:30)
DX: K44.0 Diaphragmatic hernia with obstruction, without gangrene (principal); K66.0 Peritoneal adhesions (postprocedural) (postinfection); K21.9 Gastro-esophageal reflux disease without esophagitis; E78.5 Hyperlipidemia, unspecified; M32.9 Systemic lupus erythematosus, unspecified; I10 Essential (primary) hypertension; F41.9 Anxiety disorder, unspecified; F32.A Depression, unspecified; M19.90 Unspecified osteoarthritis, unspecified site; M85.80 Other specified disorders of bone density and structure, unspecified site; Z79.82 Long term (current) use of aspirin; Z79.899 Other long term (current) drug therapy
CPT/HCPCS: 36415; 80048; 85014; 85018; 85025; 86850; 86900; 86901; 88304; 88305; A4649; C9145; J0131; J1100; J1956; J2003; J2371; J2405; J2470; J2704; J2795; J3010; J7120

== ENCOUNTER → 2024-09-13 06:11 | Outpatient (BNV) | payer MEDICARE, SELFPAY | PROVIDERS: Admitting Provider Surgery; PCP Internal Medicine; Visit Provider Physician Assistant Surgical | DX: K44.9 Diaphragmatic hernia without obstruction or gangrene (principal) | CPT/HCPCS: 43281; 99024; G0180 ==

== ENCOUNTER 2024-09-21 11:43 | Outpatient (AMB) | payer MEDICARE, SELFPAY ==
--- NOTE | 2024-09-21 12:01 | MHC.OFFVISWM ---
VS Expanded 09/21/24 12:23 BP 111/66 Blood Pressure Location Rt brachial Blood Pressure Position Sitting Pulse 88 Pulse Source Pulse Oximeter Temp 97.2 F Temperature Source Temporal Artery Scan Pulse Oximetry 96 Oxygen Delivery Method Room Air Height 5 ft Weight 141 lb 12.8 oz BMI 27.7 Body Fat % 37.6 Body Fat Mass 53.4 Fat Free Mass 88.4 Visceral Fat Rating 11.0 Body Water % 43.7 Body Water Mass 62.0 Muscle Mass/Score 84.0 Basal Metabolic Rate/Score 1,213 Intake Visit Reasons: (OV) s/p Diaphragmatic Hernia Repair 09/13/24 Allergies Codeine Sulfate Allergy (Severe, Verified 09/13/24 06:13) Anaphylaxis Antihistamine Allergy (Intermediate, Verified 09/13/24 06:13) Shakiness egg Allergy (Intermediate, Verified 09/13/24 06:13) Heartburn Sulfa (Sulfonamide Antibiotics) [SULFA (SULFONAMIDE ANTIBIOTICS)] Allergy (Intermediate, Verified 09/13/24 06:13) RASH diphenhydramine [From Benadryl] Allergy (Verified 09/13/24 06:13) sweats, palpitation cefuroxime Adverse Reaction (Verified 09/13/24 06:13) delerium ,leon HPI Comments Details: 74-year-old female returns to the office today in follow-up. She is 8 days post hiatal hernia repair on 09/13/2024. Feeling some weakness but overall improving. She is tolerating 3 celebrate rebuild shakes with 1 scoop each and 1 protein bar, celebrate and a meal with 5 forks of yogurt. She is tolerating a proximally 40 oz of water and 1 Gatorade per day. She has moved her bowels. 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 Headache Sinusitis Asthma Generalized anxiety disorder Mood disorder, drug-induced Diaphragmatic hernia Panic disorder [episodic paroxysmal anxiety] Dysthymia Hypertension Diverticulitis CVA (cerebral vascular accident) Vertigo Tubular adenoma of colon Positive colorectal cancer screening using Cologuard test Irritable bowel syndrome with both constipation and diarrhea GERD (gastroesophageal reflux disease) Depression with anxiety HTN (hypertension), benign Lupus Surgical History (Updated 09/18/24 @ 00:03 by Carter Campos) H/O wrist surgery Hx of colonoscopy History of cholecystectomy Family History Father CAD (coronary artery disease) Maternal Grandmother HTN (hypertension), benign Father No problems noted. 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 Overall, doing fairly well. She has been given a new meal plan and will follow it accordingly. She continues to communicate with Dr. Wiseman. Continue to wear abdominal binder for 2 weeks with any exercise or activity. Return to the office in 2 weeks
[2024-09-21 12:23] VITALS: BP 111/66; PULSE 88; TEMP 36.2; O2SAT 96; BMI 27.7
== END 2024-09-21 12:26 | disposition home or self-care (01) ==
LOC: HO.HBS 11:44
PROVIDERS: PCP Internal Medicine; Visit Provider Physician Assistant Surgical
DX: Z98.890 Other specified postprocedural states (principal); Z87.19 Personal history of other diseases of the digestive system
CPT/HCPCS: 99024

== ENCOUNTER → 2024-09-21 11:43 | Outpatient (BNVA) | payer MEDICARE, SELFPAY | PROVIDERS: PCP Internal Medicine; Visit Provider Physician Assistant Surgical | DX: K44.9 Diaphragmatic hernia without obstruction or gangrene (principal); Z87.19 Personal history of other diseases of the digestive system; Z98.890 Other specified postprocedural states | CPT/HCPCS: 99212 ==

== ENCOUNTER 2024-09-26 16:33 | Outpatient (AMB) | payer MEDICARE, SELFPAY ==
--- NOTE | 2024-09-26 15:16 | A.OFFPSYCH_ITS ---
Intake Intake Visit Reasons: depression Allergies Codeine Sulfate Allergy (Severe, Verified 09/13/24 06:13) Anaphylaxis Antihistamine Allergy (Intermediate, Verified 09/13/24 06:13) Shakiness egg Allergy (Intermediate, Verified 09/13/24 06:13) Heartburn Sulfa (Sulfonamide Antibiotics) [SULFA (SULFONAMIDE ANTIBIOTICS)] Allergy (Intermediate, Verified 09/13/24 06:13) RASH diphenhydramine [From Benadryl] Allergy (Verified 09/13/24 06:13) sweats, palpitation cefuroxime Adverse Reaction (Verified 09/13/24 06:13) delerium ,paranoia HPI- Psychiatric Chief Complaint: depression HPI Narrative: The patient is status post gastropexy for hiatal hernia that was impacting her pulmonary functioning. The patient surgery reportedly went well however has been having more anxiety limited panic over the past week or so dealing with limited food and fluid intake. She remains on Paxil 30 mg daily Olanzapine amitriptyline had been discontinued. Librium was discontinued. Having trouble with insomnia dealing with postop requirements Past Psychiatric History: Patient has chronic history of panic somatic preoccupations mild depressive episodes. Patient has generally been doing okay she lives with her niece in the same building to family house. Some chronic anxiety related to chronic allergy symptoms have been encouraged visit to motion picture director or ENT which she has not pursued Librium has been cut in half over time history of panic attacks and anxiety generally stable with Paxil buspirone denies over medication does have some degree of chronic balance problems week and discussed possibility of physical therapy for strengthening and balance. She is also seen by rheumatology Mental Status Exam Mental Status Exam Narrative: Mental Status Exam Narrative: Appearance: Behavior: Cooperative appropriate psychomotor: Within normal limits Speech: Normal volume and prosody Thought proccess logical and goal-directed Thought content: worried re surgery and post op limitations Mood: anxious Affect: constricted SI:denies HI:denies VH/AH:none Delusions: None Insight/judgment: Good insight and judgment Memory/cog: Intact Telehealth Telehealth Telehealth [facility] Location of provider rendering services: practice address Location of patient: address on file Patient Identification confirmed using: Name, : Yes Telehealth method: voice only Patient verbally consented to treatment: Yes Patient verbally consented to billing insurance company: Yes Patient informed of any privacy concerns related to visit: Yes Minutes spent on Phone/Video with Pt.: 15 Assessment and Plan Assessment & Plan (1) Panic disorder [episodic paroxysmal anxiety]: Status: Acute Code(s): F41.0 - Panic disorder [episodic paroxysmal anxiety] (2) Generalized anxiety disorder: Status: Acute Code(s): F41.1 - Generalized anxiety disorder Plan Risks benefits alternatives reviewed discussed use of mirtazapine 7.5 mg a half to 1 tablet at bedtime lorazepam on temp basis 0.5 bid prn Medications: New mirtazapine 7.5 mg PO BEDTIME 30 tabs 2RF lorazepam 0.5 mg PO BID PRN 20 tabs 1RF anxiety Counseling and coordination of Care Details: I spent [] minutes reviewing the record, seeing the patient and documenting in the medical record. Counseling provided to the patient/caregiver as outlined below. Addressed patient/caregiver concerns regarding current medication regime including effective adherence. Addressed patient/caregiver concerns regarding diagnosis and prognosis including accuracy of diagnosis, prognosis over time, impact of diagnosis. Addressed patient/caregiver concerns regarding impact of recent stressors. 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 Headache Sinusitis Asthma Generalized anxiety disorder Mood disorder, drug-induced Diaphragmatic hernia Panic disorder [episodic paroxysmal anxiety] Dysthymia Hypertension Diverticulitis CVA (cerebral vascular accident) Vertigo Tubular adenoma of colon Positive colorectal cancer screening using Cologuard test Irritable bowel syndrome with both constipation and diarrhea GERD (gastroesophageal reflux disease) Depression with anxiety HTN (hypertension), benign Lupus Surgical History (Updated 09/18/24 @ 00:03 by Background Daemon) H/O wrist surgery Hx of colonoscopy History of cholecystectomy Family History Father CAD (coronary artery disease) Maternal Grandmother HTN (hypertension), benign Father No problems noted. 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 The mother is she has a brother with PTSD family history of depression She never no children Substance History: none Trauma History: NA Coding Level of Care Code Tele Est Pt Level 3 (64969) Diagnoses Panic disorder [episodic paroxysmal anxiety] F41.0 Generalized anxiety disorder F41.1
== END 2024-09-26 16:34 | disposition home or self-care (01) ==
LOC: HO.HOP 16:33
PROVIDERS: PCP Internal Medicine; Visit Provider Psychiatry & Neurology Psychiatry
DX: F41.0 Panic disorder [episodic paroxysmal anxiety] (principal); F41.1 Generalized anxiety disorder
CPT/HCPCS: 99442

== ENCOUNTER 2024-10-13 09:36 | Outpatient (AMB) | payer MEDICARE, SELFPAY ==
--- NOTE | 2024-10-13 09:45 | MHC.OFFVISWM ---
VS Expanded 10/13/24 09:51 BP 125/70 Blood Pressure Location Rt brachial Blood Pressure Position Sitting Pulse 96 Pulse Source Pulse Oximeter Temp 97.8 F Temperature Source Temporal Artery Scan Pulse Oximetry 95 Oxygen Delivery Method Room Air Height 5 ft Weight 135 lb 12.8 oz BMI 26.5 Body Fat % 34.0 Body Fat Mass 6.0 Fat Free Mass 89.6 Visceral Fat Rating 0 Body Water % 46.3 Body Water Mass 62.8 Muscle Mass/Score 84.8 Basal Metabolic Rate/Score 1,213 Intake Visit Reasons: (OV) s/p Diaphragmatic Hernia Repair 09/13/24 Allergies Codeine Sulfate Allergy (Severe, Verified 10/13/24 09:48) Anaphylaxis Antihistamine Allergy (Intermediate, Verified 10/13/24 09:48) Shakiness egg Allergy (Intermediate, Verified 10/13/24 09:48) Heartburn Sulfa (Sulfonamide Antibiotics) [SULFA (SULFONAMIDE ANTIBIOTICS)] Allergy (Intermediate, Verified 10/13/24 09:48) RASH diphenhydramine [From Benadryl] Allergy (Verified 10/13/24 09:48) sweats, palpitation cefuroxime Adverse Reaction (Verified 10/13/24 09:48) delerium ,leon HPI Comments Details: 74-year-old female returns to the office today in follow-up. She is 1 month post hiatal hernia repair on 09/13/2024. Weight today is 135.8 lb with a BMI of 26.5. She is tolerating 1 celebrate rebuild shake with 1 scoop and 2 meals with 5 forks of protein and 5 forks of vegetables. She is drinking approximately 20 oz of Gatorade and approximately 32 oz of water daily. She is moving her bowels without difficulty. She does state that she was also supposed to be doing a celebrate protein bar but does not like it. She does report increased anxiety. She is under the care of Psychiatry and recently started on lorazepam. 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 Headache Sinusitis Asthma Generalized anxiety disorder Mood disorder, drug-induced Diaphragmatic hernia Panic disorder [episodic paroxysmal anxiety] Dysthymia Hypertension Diverticulitis CVA (cerebral vascular accident) Vertigo Tubular adenoma of colon Positive colorectal cancer screening using Cologuard test Irritable bowel syndrome with both constipation and diarrhea GERD (gastroesophageal reflux disease) Depression with anxiety HTN (hypertension), benign Lupus Surgical History (Updated 10/13/24 @ 09:49 by Abby Bill CMA) S/P repair of paraesophageal hernia H/O wrist surgery Hx of colonoscopy History of cholecystectomy Family History Father CAD (coronary artery disease) Maternal Grandmother HTN (hypertension), benign Father No problems noted. 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, 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 Celebrate rebuild 2 scoops x1 Meal, 5 forks protein and 5 forks of vegetables, x2. Continue fluid intake as she is doing. Regarding her anxiety, she has an appointment scheduled with Psychiatry on 11/28/24 at 10:30. I called their office to alert them of her continued ongoing anxiety despite starting lorazepam and they graciously extended an appointment to her for tomorrow morning at 10:00. I have given her this paperwork so she has it available to her.
[2024-10-13 09:51] VITALS: BP 125/70; PULSE 96; TEMP 36.6; O2SAT 95; BMI 26.5
== END 2024-10-13 10:19 | disposition home or self-care (01) ==
PROVIDERS: PCP Internal Medicine; Visit Provider Physician Assistant Surgical
DX: Z98.890 Other specified postprocedural states (principal); Z87.19 Personal history of other diseases of the digestive system
CPT/HCPCS: 99024

== ENCOUNTER → 2024-10-13 09:36 | Outpatient (BNVA) | payer MEDICARE, SELFPAY | PROVIDERS: PCP Internal Medicine; Visit Provider Physician Assistant Surgical | DX: Z48.815 Encounter for surgical aftercare following surgery on the digestive system (principal); Z98.890 Other specified postprocedural states | CPT/HCPCS: 99212 ==

== ENCOUNTER 2024-10-14 10:45 | Outpatient (AMB) | payer MEDICARE, SELFPAY ==
--- NOTE | 2024-10-14 11:07 | MHC.OFFVISPS ---
Intake Intake Visit Reasons: depression Allergies Codeine Sulfate Allergy (Severe, Verified 10/13/24 09:48) Anaphylaxis Antihistamine Allergy (Intermediate, Verified 10/13/24 09:48) Shakiness egg Allergy (Intermediate, Verified 10/13/24 09:48) Heartburn Sulfa (Sulfonamide Antibiotics) [SULFA (SULFONAMIDE ANTIBIOTICS)] Allergy (Intermediate, Verified 10/13/24 09:48) RASH diphenhydramine [From Benadryl] Allergy (Verified 10/13/24 09:48) sweats, palpitation cefuroxime Adverse Reaction (Verified 10/13/24 09:48) delerium ,paranoia Medication List - Last Reconciled 10/14/24 by Thierry Moraes MD acetaminophen (Tylenol Extra Strength) 1,000 mg PO Q6H PRN albuterol sulfate 90 mcg/actuation (Ventolin HFA) 2 puffs inhalation Q6H PRN alendronate 70 mg PO TH@0900 amlodipine 5 mg See Protocol PO DAILY aspirin (Adult Low Dose Aspirin) 81 mg PO DAILY atorvastatin 40 mg PO BEDTIME buspirone 10 mg PO BID carvedilol 1 tab PO BID chlordiazepoxide HCl 5 mg PO TID PRN fluticasone propionate 50 mcg/actuation 1 spray intranasal DAILY PRN lisinopril 1 tab PO DAILY lorazepam 0.5 mg PO BID PRN magnesium chloride (Slow-Mag) 1 tab PO DAILY mirtazapine 7.5 - 15 mg (0.5 - 1 x 15 mg) PO BEDTIME ondansetron 4 mg PO Q12H pantoprazole 40 mg PO DAILY paroxetine HCl 30 mg PO BEDTIME sucralfate 10 mL PO BID HPI- Psychiatric Chief Complaint: depression HPI Past Psychiatric History: Patient has chronic history of panic somatic preoccupations mild depressive episodes. Patient has generally been doing okay she lives with her niece in the same building to family house. Some chronic anxiety related to chronic allergy symptoms have been encouraged visit to candy attendant or ENT which she has not pursued Librium has been cut in half over time history of panic attacks and anxiety generally stable with Paxil buspirone denies over medication does have some degree of chronic balance problems week and discussed possibility of physical therapy for strengthening and balance. She is also seen by rheumatology Assessment and Plan Assessment & Plan (1) Panic disorder [episodic paroxysmal anxiety]: Status: Acute Code(s): F41.0 - Panic disorder [episodic paroxysmal anxiety] (2) Generalized anxiety disorder: Status: Acute Code(s): F41.1 - Generalized anxiety disorder (3) Depression with anxiety: Status: Acute Code(s): F41.8 - Other specified anxiety disorders Plan Patient seen psychiatric follow-up. The patient's mood has been anxious quite worried about teenager living in the upstairs apartment and has supposedly made bizarre statements in the house had a psychiatric eval reportedly. Patient has been more anxious and ruminating difficulty with insomnia increase mirtazapine to 15 mg hopefully helpful with sleep and anxiety . Also made referral for outpatient psychotherapy Medications: Changed From mirtazapine 7.5 mg PO BEDTIME 30 tabs 2RF To mirtazapine 7.5 - 15 mg (0.5 - 1 x 15 mg) PO BEDTIME 30 tabs 2RF Counseling and coordination of Care Details: I spent [] minutes reviewing the record, seeing the patient and documenting in the medical record. Counseling provided to the patient/caregiver as outlined below. Addressed patient/caregiver concerns regarding current medication regime including effective adherence. Addressed patient/caregiver concerns regarding diagnosis and prognosis including accuracy of diagnosis, prognosis over time, impact of diagnosis. Addressed patient/caregiver concerns regarding impact of recent stressors. 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 Headache Sinusitis Asthma Generalized anxiety disorder Mood disorder, drug-induced Diaphragmatic hernia Panic disorder [episodic paroxysmal anxiety] Dysthymia Hypertension Diverticulitis CVA (cerebral vascular accident) Vertigo Tubular adenoma of colon Positive colorectal cancer screening using Cologuard test Irritable bowel syndrome with both constipation and diarrhea GERD (gastroesophageal reflux disease) Depression with anxiety HTN (hypertension), benign Lupus Surgical History (Updated 10/13/24 @ 09:49 by Abby Bill CMA) S/P repair of paraesophageal hernia H/O wrist surgery Hx of colonoscopy History of cholecystectomy Family History Father CAD (coronary artery disease) Maternal Grandmother HTN (hypertension), benign Father No problems noted. 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 The mother is she has a brother with PTSD family history of depression She never no children Substance History: none Trauma History: NA Coding Level of Care Code Est Pt Level 3 (23698) Therapy 30m w/E&M (61159) Diagnoses Panic disorder [episodic paroxysmal anxiety] F41.0 Generalized anxiety disorder F41.1 Depression with anxiety F41.8
== END 2024-10-14 10:48 | disposition home or self-care (01) ==
LOC: HO.HOP 10:45
PROVIDERS: PCP Internal Medicine; Visit Provider Psychiatry & Neurology Psychiatry
DX: F41.0 Panic disorder [episodic paroxysmal anxiety] (principal); F41.1 Generalized anxiety disorder; F41.8 Other specified anxiety disorders
CPT/HCPCS: 90833; 99213

== ENCOUNTER → 2024-10-14 10:45 | Outpatient (BNVA) | payer MEDICARE, SELFPAY | PROVIDERS: PCP Internal Medicine; Visit Provider Psychiatry & Neurology Psychiatry | DX: F41.0 Panic disorder [episodic paroxysmal anxiety] (principal); F41.1 Generalized anxiety disorder; F41.8 Other specified anxiety disorders; Z71.89 Other specified counseling | CPT/HCPCS: 99212 ==

== ENCOUNTER 2024-10-20 16:01 | Outpatient (AMB) | payer MEDICARE, SELFPAY ==
--- NOTE | 2024-10-20 15:01 | A.OFFPSYCH_ITS ---
Intake Intake Visit Reasons: depression Allergies Codeine Sulfate Allergy (Severe, Verified 10/13/24 09:48) Anaphylaxis Antihistamine Allergy (Intermediate, Verified 10/13/24 09:48) Shakiness egg Allergy (Intermediate, Verified 10/13/24 09:48) Heartburn Sulfa (Sulfonamide Antibiotics) [SULFA (SULFONAMIDE ANTIBIOTICS)] Allergy (Intermediate, Verified 10/13/24 09:48) RASH diphenhydramine [From Benadryl] Allergy (Verified 10/13/24 09:48) sweats, palpitation cefuroxime Adverse Reaction (Verified 10/13/24 09:48) delerium ,paranoia HPI- Psychiatric Chief Complaint: depression HPI Narrative: Patient seen psychiatric follow-up. Patient continues to have anxiety rumination worries about her house and what might be happening with the child living in another apartment who may have psychiatric illness. She has been perseverating ruminating on this and her panic disorder and subsequent GI symptoms have been re triggered ffffffffffffffffffffffffffffffffffffffffffffffffffff ffffffffffffffffffffffffffffffffffffffffffffffffffffffffffffffffffffffffffffffff ffffffffffffffffffffffffffffffffffffffffffffffffffffffffffffffffffffffffffffffff ffffffffffffffffffffffffffffffffffffffff ffffffffffffffffffffffffffffffffffffffffffffffffffffffffffffffffffffffffffffffff ffffffffffffffffffffffffffffffffffffffffffffffffffffffffffffffffffffffffffffffff ffffffffffffffffffffffffffffffffffffffff ffffffffffffffffffffffffffffffffffffffffffffffffffffffffffffffffffffffffffffffff ffffffffffffffffffffffffffffffffffffffffffffffffffffffffffffffffffffffffffffffff ffffffffffffffffffffffffffffffffffffffff ffffffffffffffffffffffffffffffffffffffffffffffffffffffffffffffffffffffffffffffff ffffffffffffffffffffffffffffffffffffffffffffffffffffffffffffffffffffffffffffffff ffffffffffffffffffffffffffffffffffffffff ffffffffffffffffffffffffffffffffffffffffffffffffffffffffffffffffffffffffffffffff ffffffffffffffffffffffffffffffffffffffffffffffffffffffffffffffffffffffffffffffff ffffffffffffffffffffffffffffffffffffffff ffffffffffffffffffffffffffffffffffffffffffffffffffffffffffffffffffffffffffffffff ffffffffffffffffffffffffffffffffffffffffffffffffffffffffffffffffffffffffffffffff ffffffffffffffffffffffffffffffffffffffff ffffffffffffffffffffffffffffffffffffffffffffffffffffffffffffffffffffffffffffffff ffffffffffffffffffffffffffffffffffffffffffffffffffffffffffffffffffffffffffffffff ffffffffffffffffffffffffffffffffffffffff ffffffffffffffffffffffffffffffffffffffffffffffffffffffffffffffffffffffffffffffff ffffffffffffffffffffffffffffffffffffffffffffffffffffffffffffffffffffffffffffffff ffffffffffffffffffffffffffffffffffffffff ffffffffffffffffffffffffffffffffffffffffffffffffffffffffffffffffffffffffffffffff ffffffffffffffffffffffffffffffffffffffffffffffffffffffffffffffffffffffffffffffff ffffffffffffffffffffffffffffffffffffffff ffffffffffffffffffffffffffffffffffffffffffffffffffffffffffffffffffffffffffffffff ffffffffffffffffffffffffffffffffffffffffffffffffffffffffffffffffffffffffffffffff ffffffffffffffffffffffffffffffffffffffff ffffffffffffffffffffffffffffffffffffffffffffffffffffffffffffffffffffffffffffffff ffffffffffffffffffffffffffffffffffffffffffffffffffffffffffffffffffffffffffffffff ffffffffffffffffffffffffffffffffffffffff ffffffffffffffffffffffffffffffffffffffffffffffffffffffffffffffffffffffffffffffff ffffffffffffffffffffffffffffffffffffffffffffffffffffffffffffffffffffffffffffffff ffffffffffffffffffffffffffffffffffffffff ffffffffffffffffffffffffffffffffffffffffffffffffffffffffffffffffffffffffffffffff ffffffffffffffffffffffffffffffffffffffffffffffffffffffffffffffffffffffffffffffff ffffffffffffffffffffffffffffffffffffffff ffffffffffffffffffffffffffffffffffffffffffffffffffffffffffffffffffffffffffffffff ffffffffffffffffffffffffffffffffffffffffffffffffffffffffffffffffffffffffffffffff ffffffffffffffffffffffffffffffffffffffff ffffffffffffffffffffffffffffffffffffffffffffffffffffffffffffffffffffffffffffffff ffffffffffffffffffffffffffffffffffffffffffffffffffffffffffffffffffffffffffffffff ffffffffffffffffffffffffffffffffffffffff ffffffffffffffffffffffffffffffffffffffffffffffffffffffffffffffffffffffffffffffff ffffffffffffffffffffffffffffffffffffffffffffffffffffffffffffffffffffffffffffffff ffffffffffffffffffffffffffffffffffffffff ffffffffffffffffffffffffffffffffffffffffffffffffffffffffffffffffffffffffffffffff ffffffffffffffffffffffffffffffffffffffffffffffffffffffffffffffffffffffffffffffff ffffffffffffffffffffffffffffffffffffffff ffffffffffffffffffffffffffffffffffffffffffffffffffffffffffffffffffffffffffffffff ffffffffffffffffffffffffffffffffffffffffffffffffffffffffffffffffffffffffffffffff ffffffffffffffffffffffffffffffffffffffff ffffffffffffffffffffffffffffffffffffffffffffffffffffffffffffffffffffffffffffffff ffffffffffffffffffffffffffffffffffffffffffffffffffffffffffffffffffffffffffffffff ffffffffffffffffffffffffffffffffffffffff ffffffffffffffffffffffffffffffffffffffffffffffffffffffffffffffffffffffffffffffff ffffffffffffffffffffffffffffffffffffffffffffffffffffffffffffffffffffffffffffffff ffffffffffffffffffffffffffffffffffffffff ffffffffffffffffffffffffffffffffffffffffffffffffffffffffffffffffffffffffffffffff ffffffffffffffffffffffffffffffffffffffffffffffffffffffffffffffffffffffffffffffff ffffffffffffffffffffffffffffffffffffffff ffffffffffffffffffffffffffffffffffffffffffffffffffffffffffffffffffffffffffffffff ffffffffffffffffffffffffffffffffffffffffffffffffffffffffffffffffffffffffffffffff ffffffffffffffffffffffffffffffffffffffff ffffffffffffffffffffffffffffffffffffffffffffffffffffffffffffffffffffffffffffffff ffffffffffffffffffffffffffffffffffffffffffffffffffffffffffffffffffffffffffffffff ffffffffffffffffffffffffffffffffffffffff ffffffffffffffffffffffffffffffffffffffffffffffffffffffffffffffffffffffffffffffff ffffffffffffffffffffffffffffffffffffffffffffffffffffffffffffffffffffffffffffffff ffffffffffffffffffffffffffffffffffffffff ffffffffffffffffffffffffffffffffffffffffffffffffffffffffffffffffffffffffffffffff ffffffffffffffffffffffffffffffffffffffffffffffffffffffffffffffffffffffffffffffff ffffffffffffffffffffffffffffffffffffffff ffffffffffffffffffffffffffffffffffffffffffffffffffffffffffffffffffffffffffffffff ffffffffffffffffffffffffffffffffffffffffffffffffffffffffffffffffffffffffffffffff ffffffffffffffffffffffffffffffffffffffff ffffffffffffffffffffffffffffffffffffffffffffffffffffffffffffffffffffffffffffffff ffffffffffffffffffffffffffffffffffffffffffffffffffffffffffffffffffffffffffffffff ffffffffffffffffffffffffffffffffffffffff ffffffffffffffffffffffffffffffffffffffffffffffffffffffffffffffffffffffffffffffff ffffffffffffffffffffffffffffffffffffffffffffffffffffffffffffffffffffffffffffffff ffffffffffffffffffffffffffffffffffffffff ffffffffffffffffffffffffffffffffffffffffffffffffffffffffffffffffffffffffffffffff fffffffffffffffffffffffffffffffffffffffffffffffffffffffffffffff Past Psychiatric History: Patient has chronic history of panic somatic preoccupations mild depressive episodes. Patient has generally been doing okay she lives with her niece in the same building to family house. Some chronic anxiety related to chronic allergy symptoms have been encouraged visit to vocational examiner or ENT which she has not pursued Librium has been cut in half over time history of panic attacks and anxiety generally stable with Paxil buspirone denies over medication does have some degree of chronic balance problems week and discussed possibility of physical therapy for strengthening and balance. She is also seen by rheumatology Mental Status Exam Mental Status Exam Narrative: Mental Status Exam Narrative: Appearance: Behavior: Cooperative appropriate psychomotor: Within normal limits Speech: Normal volume and prosody Thought proccess logical perseverative Thought content: concerns re diet s/p surgery concerns re insomnia and living situation Mood: anxious Affect: constricted SI:denies HI:denies VH/AH:none Delusions: None Insight/judgment: feeling overwhelmed at times judgment Memory/cog: Intact Telehealth Telehealth Telehealth Platform: [facility] Location of provider rendering services: practice address Location of patient: address on file Patient Identification confirmed using: Name, : Yes Telehealth method: voice only Patient verbally consented to treatment: Yes Patient verbally consented to billing insurance company: Yes Patient informed of any privacy concerns related to visit: Yes Minutes spent on Phone/Video with Pt.: 15 Assessment and Plan Assessment & Plan (1) Panic disorder [episodic paroxysmal anxiety]: Status: Acute Code(s): F41.0 - Panic disorder [episodic paroxysmal anxiety] (2) Generalized anxiety disorder: Status: Acute Code(s): F41.1 - Generalized anxiety disorder Plan Strongly urged patient see therapist attach to outpatient service [facility] discussed use of low-dose antipsychotic on a temporary basis Seroquel 25 mg bedtime may take an additional half tab daily as needed for severe anxiety rumination. Has lorazepam p.r.n. monitor mental state Medications: New quetiapine 1 bedtime may take additional 1/2 tab daily as needed for severe anxiety 25 mg PO BEDTIME 40 tabs 1RF 30 days Counseling and coordination of Care Pt. Self Management counseling: Breathing and General coping skills Medication management counseling: Effectiveness, Side effects and Dosing range Diagnosis and Prognosis Counseling: Impact of diagnosis on life functions and Adequacy of current interventions Details: I spent [15] minutes reviewing the record, seeing the patient and documenting in the medical record. Counseling provided to the patient/caregiver as outlined below. Addressed piter ent/caregiver concerns regarding current medication regime including effective adherence. Addressed patient/caregiver concerns regarding diagnosis and prognosis including accuracy of diagnosis, prognosis over time, impact of diagnosis. Addressed patient/caregiver concerns regarding impact of recent stressors. 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 Headache Sinusitis Asthma Generalized anxiety disorder Mood disorder, drug-induced Diaphragmatic hernia Panic disorder [episodic paroxysmal anxiety] Dysthymia Hypertension Diverticulitis CVA (cerebral vascular accident) Vertigo Tubular adenoma of colon Positive colorectal cancer screening using Cologuard test Irritable bowel syndrome with both constipation and diarrhea GERD (gastroesophageal reflux disease) Depression with anxiety HTN (hypertension), benign Lupus Surgical History (Updated 10/13/24 @ 09:49 by Abby Bill CMA) S/P repair of paraesophageal hernia H/O wrist surgery Hx of colonoscopy History of cholecystectomy Family History Father CAD (coronary artery disease) Maternal Grandmother HTN (hypertension), benign Father No problems noted. 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 The mother is she has a brother with PTSD family history of depression She never no children Substance History: none Trauma History: NA Coding Level of Care Code Tele Est Pt Level 3 (70126) Diagnoses Panic disorder [episodic paroxysmal anxiety] F41.0 Generalized anxiety disorder F41.1
== END 2024-10-20 16:01 | disposition home or self-care (01) ==
LOC: HO.HOP 16:01
PROVIDERS: PCP Internal Medicine; Visit Provider Psychiatry & Neurology Psychiatry
DX: F41.0 Panic disorder [episodic paroxysmal anxiety] (principal); F41.1 Generalized anxiety disorder
CPT/HCPCS: 99442

== ENCOUNTER → 2024-10-20 16:01 | Outpatient (BNVA) | payer MEDICARE, SELFPAY | PROVIDERS: PCP Internal Medicine; Visit Provider Psychiatry & Neurology Psychiatry ==

== ENCOUNTER 2024-11-11 13:24 | Outpatient (REF) | payer MEDICARE, SELFPAY ==
--- NOTE | ~2024-11-11 | US_ITS ---
EXAMINATION: US LOWER EXTREMITY VEINS BILATERAL HISTORY: leg edema COMPARISON: There are no prior studies for comparison. TECHNIQUE: Duplex and color Doppler sonographic examination of the deep venous system of the bilateral lower extremities was performed. FINDINGS: The right common femoral, superficial femoral, and popliteal veins are patent demonstrating normal compressibility, spontaneous flow, and augmentation. There is a normal color and spectral Doppler waveform appearance of the visualized deep venous system above the knee. The posterior tibial and peroneal veins are patent. The left common femoral, superficial femoral, and popliteal veins are patent demonstrating normal compressibility, spontaneous flow, and augmentation. There is a normal color and spectral Doppler waveform appearance of the visualized deep venous system above the knee. The posterior tibial and peroneal veins are patent. US/US venous duplex LE BI IMPRESSION: No evidence of acute DVT in the bilateral lower extremities. Electronically signed by: Eugene Villarreal MD 11/11/2024 02:47 PM CLAUDIA
== END 2024-11-11 13:25 | disposition home or self-care (01) ==
LOC: HO.US 13:24
PROVIDERS: PCP Internal Medicine; Visit Provider Internal Medicine
DX: R60.0 Localized edema (principal)
CPT/HCPCS: 93970

== ENCOUNTER → 2024-11-11 13:39 | Outpatient (BNV) | payer MEDICARE, SELFPAY | PROVIDERS: PCP Internal Medicine; Visit Provider Radiology Diagnostic Radiology | DX: R60.9 Edema, unspecified (principal) | CPT/HCPCS: 93970 ==

== ENCOUNTER 2024-11-23 09:48 | Outpatient (AMB) | payer MEDICARE, SELFPAY ==
--- NOTE | 2024-11-23 10:03 | MHC.OFFVISWM ---
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: No Allergies Codeine Sulfate Allergy (Severe, Verified 10/13/24 09:48) Anaphylaxis Antihistamine Allergy (Intermediate, Verified 10/13/24 09:48) Shakiness egg Allergy (Intermediate, Verified 10/13/24 09:48) Heartburn Sulfa (Sulfonamide Antibiotics) [SULFA (SULFONAMIDE ANTIBIOTICS)] Allergy (Intermediate, Verified 10/13/24 09:48) RASH diphenhydramine [From Benadryl] Allergy (Verified 10/13/24 09:48) sweats, palpitation cefuroxime Adverse Reaction (Verified 10/13/24 09:48) delerium ,[facility] Medication List - Last Reconciled 11/23/24 by SUNG Drake acetaminophen (Tylenol Extra Strength) 1,000 mg PO Q6H PRN albuterol sulfate 90 mcg/actuation (Ventolin HFA) 2 puffs inhalation Q6H PRN alendronate 70 mg PO TH@0900 amlodipine 5 mg See Protocol PO DAILY aspirin (Adult Low Dose Aspirin) 81 mg PO DAILY atorvastatin 40 mg PO BEDTIME buspirone 10 mg PO BID carvedilol 1 tab PO BID chlordiazepoxide HCl 5 mg PO TID PRN fluticasone propionate 50 mcg/actuation 1 spray intranasal DAILY PRN lisinopril 1 tab PO DAILY lorazepam 0.5 mg PO BID PRN magnesium chloride (Slow-Mag) 1 tab PO DAILY mirtazapine 7.5 - 15 mg (0.5 - 1 x 15 mg) PO BEDTIME ondansetron 4 mg PO Q12H pantoprazole 40 mg PO DAILY paroxetine HCl 30 mg PO BEDTIME quetiapine 25 mg PO BEDTIME 30 days sucralfate 10 mL PO BID HPI Comments Details: 74-year-old female returns to the office today in follow-up. She is 2 months post hiatal hernia repair on 09/13/2024. Weight today is 128.8 lb with a BMI of 25.1. She is tolerating 1 celebrate rebuild shake with 2 scoops only 3 days per week. She would have toast or kyrgyz muffin. She decreased it because she states she is gagging on it. 2 meals with 10 forks of protein and 10 forks of vegetables. She is also eating 1 yogurt daily. She is drinking approximately 20 oz of Gatorade and approximately 32 oz of water daily. She is moving her bowels without difficulty but does report feeling bloated and gassy. She does report increased anxiety. She is under the care of Psychiatry and recently started on lorazepam. She does not wish to do the protein shakes any longer and would like a referral to Gastroenterology for her irritable bowel. She used to follow with gastroenterology many years ago but has not been seen since. 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 Headache Sinusitis Asthma Generalized anxiety disorder Mood disorder, drug-induced Diaphragmatic hernia Panic disorder [episodic paroxysmal anxiety] Dysthymia Hypertension Diverticulitis CVA (cerebral vascular accident) Vertigo Tubular adenoma of colon Positive colorectal cancer screening using Cologuard test Irritable bowel syndrome with both constipation and diarrhea GERD (gastroesophageal reflux disease) Depression with anxiety HTN (hypertension), benign Lupus Surgical History (Updated 10/13/24 @ 09:49 by Abby Bill CMA) S/P repair of paraesophageal hernia H/O wrist surgery Hx of colonoscopy History of cholecystectomy Family History Father CAD (coronary artery disease) Maternal Grandmother HTN (hypertension), benign Father No problems noted. 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, 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 She does not wish to do protein shakes. I did make the recommendation to decrease her meal portion to 8 forks of protein and 8 of veggies. She wishes to have toast in the morning, I discussed that the additional carbs are not recommended but if she is to do this, not to smother her Sinhala muffin in butter. We will arrange for follow-up in 1 month. (2) Irritable bowel syndrome with both constipation and diarrhea: Code(s): K58.2 - Mixed irritable bowel syndrome Category: Medical Plan: Referral to GI per her request. Orders: Referrals Gastroenterology Referral K58.2 - Mixed irritable bowel syndrome
[2024-11-23 10:14] VITALS: BP 111/62; PULSE 101; TEMP 36.2; O2SAT 98; BMI 25.2
--- OUTSIDE RECORDS SUMMARY | 2024-11-23 10:36 | XMS_ITS ---
Author Organization Arnulfo Villalba MD Address [address] [place] [id number] Care Team Providers Care Drive In Theater Attendant Name Role Phone Arnulfo Villalba Primary Care Provider REASON FOR VISIT UTI, Audio [phone] MEDICATIONS Medication SIG (Take, Route, Frequency, Duration) Notes Start Date End Date Status Tylenol Extra Strength 500 MG 1 tablet as needed Orally every 6 hrs Active ZyPREXA 2.5 MG 1 tablet Orally Once a day for 30 day(s) Active Vitamin D3 2000 UNIT 1 tablet Orally Onc e a day 01/03/2014 Active busPIRone HCl 10 MG 1 tablet Orally Twice a day Active chlordiazePOXIDE HCl 5 MG ( Drug) TAKE O NE CAPSULE BY MOUTH TWICE A DAY NEEDED Orally three times a day Active Pyridium 100 MG 1 tablet after meals Orally Three times a day for 3 days 11/17/2024 Active LORazepam 0.5 MG 1 tablet at bedtime as needed Orally Once a day Active Cephalexin 500 MG 1 capsule Orally 2 times a day for 5 day(s) 10/16/2022 Not-Taking Pyridium 100 MG 1 tablet after meals Orally Three times a day for 2 day(s) 10/16/2022 Not-Taking Cephalexin 500 MG 1 capsule Orally twice a day for 5 days 11/17/2024 Active Carvedilol 25 MG TAKE 1 TABLET BY MOUTH TWICE DAILY Orally Twice a day for 90 days Active hydroCHLOROthiazide 12.5 MG TAKE 1 TABLE T BY MOUTH EVERY DAY IN THE MORNING FOR 90 DAYS Not-Taking Aspir-Low 81 MG 1 tablet Orally Once a day for 30 day(s) Not-Taking Magnesium Oxide 400 MG 1 tablet with carlota d orally BID Not-Taking PARoxetine HCl 30 MG TAKE 1 TABLET BY MOUTH EVERY DAY Oral Once a day for 90 days Active Lisinopril 20 MG TAKE 1 TABLET BY MOUTH ONCE DAILY Active amLODIPine Besylate 5 MG TAKE 1 TABLET B Y MOUTH ONCE DAILY Orally Once a day Active Omeprazole 40 MG TAKE 1 CAPSULE BY MOUTH TWICE DAILY Orally Once a day for 90 days Active Alendronate Sodium 70 MG TAKE 1 TABLET B Y MOUTH 1 TIME PER WEEK Active Atorvastatin Calcium 40 MG take 1 tablet by mouth once daily Orally Once a day for 30 days Active Ventolin HFA * 108 (90 Base) MCG/ACT 2 puffs as needed Inhalation every 4 hrs 08/02/2021 Active Fluticasone Propionate 50 MCG/ACT INSTILL ONE (1) SPRAY INTRANASALLY TWICE DAILY Nasally Twice a day for 90 days Active Encounters Encounter Location Date Provider Diagnosis Arnulfo Villalba MD [address] [place] [phone] 11/17/2024 Arnulfo Villalba Acute UTI N39.0 ASSESSMENTS Encounter Date Diagnosis Assessment Notes Treatment Notes Treatment Clinical Notes 11/17/2024 Acute UTI (ICD-10 - N39.0) patient verbalized understanding of medication and directions for use. PLAN OF TREATMENT Medication Medication Name Sig Start Date Stop Date Notes Pyridium 100 MG 1 tablet after meals Orally Three times a day for 3 days 11/17/2024 Cephalexin 500 MG 1 capsule Orally twice a day for 5 days 11/17/2024 Treatment Notes Assessment Notes Acute UTI patient verbalized u nderstanding of medication and directions for use. Next Appt Details Provider Name:Arnulfo crowley, 11/25/2024 11:00:00 AM, [address] [place] [address], [place] [address], [place], [place], [phone], Provider Name:Arnulfo crowley, 11/29/2024 09:00:00 AM, [address] [place] [address], [place] [address], [place], [place], [phone], History and Physical Notes * HPI (History of Present Illness) Category Sub-Category Detail Notes Symptom(s) [facility]:: [address] [place] [address], [place] [address] Location of patient:: at address listed in demographics for today's visit Patient identification confirmed using:: Name, Telehealth method:: Telephone only. Ora ent not visible to care provider. Consent:: Patient verbally c onsented to treatment, Patient verbally consented to billing insurance company, Patient informed of any privacy concerns related to method of visit Total time spend talking with patient (m inutes): 20
--- OUTSIDE RECORDS SUMMARY | 2024-11-23 10:36 | XMS_ITS ---
Author Organization Arnulfo Villalba MD Address [address] [place], [place] [id number] Care Team Providers Care Office Service Coordinator Name Role Phone Arnulfo Villalba Primary Care Provider [phone] RESULTS Component Value Reference Range Notes Complete Blood Count Auto Di ff Reviewed date:11/18/2024 01:38:30 PM Interpretation: Performing Lab:[facility], [address] [place] [phone] Notes/Report: White Blood Count 6.4 4.8-10.8 X10*3/uL Red Blood Count 4.71 4.20-5.50 X10*6/uL Hemoglobin 12.8 12.0-16.0 g/dl Hematocrit 39.9 37.0-47.0 % Mean Corpuscular Volume 84.7 80.0-98.0 fL Mean Corpuscular Hemoglobin 27.2 27.0-33.0 pg Mean Corpuscular HGB Conc 32.1 31.0-35.0 g/dl Red Cell Distribution Width 15.3 11.0-16.0 % Platelet Count 384 160-400 X10*3/uL Mean Platelet Volume 9.6 9.4-12.3 fL Neutrophils Percent Auto 63.0 45-73 % Imm Gran Pct Auto 0.3 0.0-0.4 % Lymphocytes Percent Auto 25.3 20-40 % Monocytes Percent Auto 8.5 2-11 % Eosinophils Percent Auto 2.0 0-4 % Basophils Percent Auto 0.9 0-2 % NRBC Pct Auto 0.0 0.0-0.2 /100WBC Neutrophils Absolute Auto 4.1 2.0-8.3 x10*3/u L Imm Gran Abs Auto 0.02 0.00-0.03 X10*3/uL Lymphocytes Absolute Auto 1.6 1.2-4.9 X10*3/u L Monocytes Absolute Auto 0.6 0.1-1.2 X10*3/uL Eosinophils Absolute Auto 0.1 0.0-0.4 X10*3/u L Basophils Absolute Auto 0.1 0.0-0.2 X10*3/uL NRBC Abs Auto 0.000 0.0-0.012 X10*3/uL Comprehensive [place]. Panel Fa st Reviewed date:11/18/2024 01:39:06 PM Interpretation: Performing Lab:[facility], [address] [place] [phone] Notes/Report: Sodium 139 135-145 mmol/L Potassium 3.7 3.3-5.1 mmol/L Chloride 104 96-108 mmol/L Carbon Dioxide 25 22-29 mmol/L Anion Gap 14 12-20 Blood Urea Nitrogen 5 9-16 mg/dL Creatinine 0.74 0.5-1.4 mg/dL Estimated Glomerular Filt Rate > 60 Chronic Kidney Disease: Estimated GFR < 60 mL/min/1.73m2 Severe Kidney Disease: Estimated GFR < 15 mL/min/1.73m2 Glucose Fasting 97 60-99 mg/dL Calcium 9.1 8.4-10.2 mg/dL Bilirubin Total 0.5 0.0-1.0 mg/dL Aspartate Amino Transferase 26 5-31 U/L Alanine Aminotransferase 14 0-31 U/L Total Protein 7.9 6.5-8.0 g/dL Albumin Level 4.6 3.5-5.0 g/dL Alkaline Phosphatase 77 39-117 U/L Lipid Panel Reviewed date:11/18/2024 12:34:27 PM Interpretation: Performing Lab:[facility], [address] [place] [phone] Notes/Report: Triglycerides 87 <150 mg/dL Desirable Triglyceride: less than 150 mg/dL Borderline High Triglyceride 150-199 mg/dL High Triglyceride: 200-499 mg/dL Very High Triglyceride: greater than or equal to 5OO mg/dL Cholesterol 174 <200 mg/dL Desirable Cholesterol: less than 200 mg/dL Borderline High Cholesterol: 200-239 mg/dL High Cholesterol: greater than 239 mg/dL LDL Cholesterol Calculated 64 <100 mg/dL Desirable LDL: less than 100 mg/dL Near Optimal/Above Optimal LDL: 110-129 mg/dL Borderline High LDL: 130-159 mg/dL High LDL: 160-189 mg/dL Very High LDL: greater than or equal to 190 mg/dL HDL Cholesterol 93 >40 mg/dL Desirable HDL: greater than 40 mg/dL Note: This HDL assay may give artificially low results in patients with liver disease. UA ClnCatch+Micro w/rflx Cul t Reviewed date:11/18/2024 01:38:46 PM Interpretation: Performing Lab:[facility], [address] [place] [phone] Notes/Report: [id number] Urine, Clean Catch Color Urine Dark Yellow Appearance Urine Cloudy PH 7.0 5.0-9.0 Glucose Urine UA Negative Negative mg/dL Urine Blood Negative Negative Specific Spencer - Urine 1.010 1.005-1.025 Urine Protein Trace Neg-Trace mg/dL Urine Ketones 15 Negative mg/dL Nitrite Urine Positive Negative Leukocyte Esterase Urine Large (3+) Negative RBC Urine 0-2 0-2 /HPF WBC Urine 21-50 0-5 /HPF Squamous Epithelial Cell Urine >20 0-2 /HPF Bacteria Urine Trace None Seen Hyaline Casts Urine 0-2 0-2 /LPF REASON FOR VISIT fasting labs Encounters Encounter Location Date Provider Diagnosis Arnulfo Villalba MD [address] [place] [address] [address] [place], [place] [phone] 11/18/2024 Arnulfo Villalba Blood tests for routine general physical examination Z00.00 ; Essential hypertension I10 ; Mixed hyperlipidemia E78.2 ; Lupus M32.9 and Hypomagnesemia E83.42 ASSESSMENTS Encounter Date Diagnosis Assessment Notes Treatment Notes Treatment Clinical Notes 11/18/2024 Blood tests for routine general physical examination (ICD-10 - Z00.00) 11/18/2024 Essential hypertension (ICD-10 - I10) 11/18/2024 Mixed hyperlipidemia (ICD-10 - E78.2) 11/18/2024 Lupus (ICD-10 - M32.9) 11/18/2024 Hypomagnesemia (ICD-10 - E83.42) PLAN OF TREATMENT Next Appt Details Provider Name:Arnulfo crowley, 11/25/2024 11:00:00 AM, [address] [facility], [address], [place], [phone], Provider Name:Arnulof crowley, 11/29/2024 09:00:00 AM, [address] [facility], [address], [place], [phone],
== END 2024-11-23 10:33 | disposition home or self-care (01) ==
PROVIDERS: PCP Internal Medicine; Visit Provider Physician Assistant Surgical
DX: Z98.890 Other specified postprocedural states (principal); Z87.19 Personal history of other diseases of the digestive system; K58.2 Mixed irritable bowel syndrome
CPT/HCPCS: 99024

== ENCOUNTER → 2024-11-23 09:48 | Outpatient (BNVA) | payer MEDICARE, SELFPAY | PROVIDERS: PCP Internal Medicine; Visit Provider Physician Assistant Surgical | DX: K58.2 Mixed irritable bowel syndrome (principal); Z71.3 Dietary counseling and surveillance; Z98.890 Other specified postprocedural states; Z87.19 Personal history of other diseases of the digestive system | CPT/HCPCS: 99212 ==

== ENCOUNTER 2024-11-28 10:07 | Outpatient (AMB) | payer MEDICARE, SELFPAY ==
--- NOTE | 2024-11-28 10:36 | A.OFFPSYCH_ITS ---
Intake Intake Visit Reasons: depression Allergies Codeine Sulfate Allergy (Severe, Verified 10/13/24 09:48) Anaphylaxis Antihistamine Allergy (Intermediate, Verified 10/13/24 09:48) Shakiness egg Allergy (Intermediate, Verified 10/13/24 09:48) Heartburn Sulfa (Sulfonamide Antibiotics) [SULFA (SULFONAMIDE ANTIBIOTICS)] Allergy (Intermediate, Verified 10/13/24 09:48) RASH diphenhydramine [From Benadryl] Allergy (Verified 10/13/24 09:48) sweats, palpitation cefuroxime Adverse Reaction (Verified 10/13/24 09:48) delerium ,paranoia HPI- Psychiatric Chief Complaint: depression HPI Narrative: Pts ph[employer] has been eating solid food went from 148 to 128 . Does have abd cramps at times does have ibs .Is being tx for a uti. No confusion. Continues have intermittent anxiety ruminations lack of energy and interest in doing things. Has been preoccupied with issues related to her tenant who is also her niece Past Psychiatric History: Patient has chronic history of panic somatic preoccupations mild depressive episodes. Patient has generally been doing okay she lives with her niece in the same building to family house. Some chronic anxiety related to chronic allergy symptoms have been encouraged visit to hoisting engineer or ENT which she has not pursued Librium has been cut in half over time history of panic attacks and anxiety generally stable with Paxil buspirone denies over medication does have some degree of chronic balance problems week and discussed possibility of physical therapy for strengthening and balance. She is also seen by rheumatology Mental Status Exam Mental Status Exam Narrative: Mental Status Exam Narrative: Appearance: Behavior: Cooperative appropriate psychomotor: Within normal limits Speech: Normal volume and prosody Thought process logical Thought content: Concerns regarding eating status post surgery concerns regarding her tenant and safety concerns focused on treatment Mood: Depressed Affect: constricted SI:denies HI:denies VH/AH:none Delusions: None Insight/judgment: Seems more reflective Memory/cog: Intact Assessment and Plan Assessment & Plan (1) Depression with anxiety: Status: Acute Code(s): F41.8 - Other specified anxiety disorders (2) Panic disorder [episodic paroxysmal anxiety]: Status: Acute Code(s): F41.0 - Panic disorder [episodic paroxysmal anxiety] Plan Increase Paxil to 40 mg monitor for side effects sedation confusion discussed risks benefits with patient if effective would increase BuSpar to 1/2 tabs twice a day discussed options patient potential risks benefits again reviewed . Patient felt restlessness with low-dose Seroquel at bedtime did not find mirtazapine helpful Medications: Changed From paroxetine HCl 30 mg PO BEDTIME 90 tabs 1RF To paroxetine HCl 40 mg PO BEDTIME 30 tabs 2RF 30 days Discontinued mirtazapine Discontinued Reason: Patient Refused 7.5 - 15 mg (0.5 - 1 x 15 mg) PO BEDTIME 30 tabs 2RF quetiapine 1 bedtime may take additional 1/2 tab daily as needed for severe anxiety Discontinued Reason: Patient no longer taking 25 mg PO BEDTIME 30 days 40 tabs 1RF Counseling and coordination of Care Details-Self Mgmt counseling: Issues related to managing anxiety symptoms in the context of recent medical issues and problems with her tenant Medication management counseling: Effectiveness, Side effects and Dosing range Diagnosis and Prognosis Counseling: Impact of diagnosis on life functions and Adequacy of current interventions Details: I spent [40] minutes reviewing the record, seeing the patient and documenting in the medical record. Counseling provided to the patient/caregiver as outlined below. Addressed patient/caregiver concerns regarding current medication regime including effective adherence. Addressed patient/caregiver concerns regarding diagnosis and prognosis including accuracy of diagnosis, prognosis over time, impact of diagnosis. Addressed patient/caregiver concerns regarding impact of recent stressors. 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 Headache Sinusitis Asthma Generalized anxiety disorder Mood disorder, drug-induced Diaphragmatic hernia Panic disorder [episodic paroxysmal anxiety] Dysthymia Hypertension Diverticulitis CVA (cerebral vascular accident) Vertigo Tubular adenoma of colon Positive colorectal cancer screening using Cologuard test Irritable bowel syndrome with both constipation and diarrhea GERD (gastroesophageal reflux disease) Depression with anxiety HTN (hypertension), benign Lupus Surgical History (Updated 10/13/24 @ 09:49 by Abby Bill CMA) S/P repair of paraesophageal hernia H/O wrist surgery Hx of colonoscopy History of cholecystectomy Family History Father CAD (coronary artery disease) Maternal Grandmother HTN (hypertension), benign Father No problems noted. 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 The mother is she has a brother with PTSD family history of depression She never no children Substance History: none Trauma History: NA Coding Level of Care Code Est Pt Level 3 (13037) Therapy 30m w/E&M (33733) Diagnoses Depression with anxiety F41.8 Panic disorder [episodic paroxysmal anxiety] F41.0
--- OUTSIDE RECORDS SUMMARY | 2024-11-28 14:41 | XMS_ITS ---
Author Organization Arnulfo Villalba MD Address [address] [place], [place] [phone] Care Team Providers Care Mannequin Wig Maker Name Role Phone Arnulfo Villalba Primary Care Provider REASON FOR VISIT UTI, Audio [phone] Medications Medication SIG (Take, Route, Frequency, Duration) Notes [...] Location Date Provider Diagnosis Arnulfo Villalba MD [address] [place] [phone] 11/17/2024 Arunlfo Villalba Acute UTI N39.0 Assessments Encounter Date Diagnosis (ICD Code) Assessment Notes Treatment Notes Treatment Clinical Notes Section Notes 11/17/2024 Acute UTI (ICD-10 - N39.0) patient verbalized understanding of medication and directions for use. Plan Of Treatment Medication Medication Name Sig Start Date Stop Date Notes Pyridium 100 MG 1 tablet after meals Orally Three times a day for 3 days 11/17/2024 Cephalexin 500 MG 1 capsule Orally twice a day for 5 days 11/17/2024 Treatment Notes Assessment Notes Acute UTI patient verbalized u nderstanding of medication and directions for use. Next Appt Details Provider Name:Arnulfo crowley, 11/29/2024 09:00:00 AM, [address] [place] [address], [address], [phone], Provider Name:Arnulfo crowley, 02/23/2025 10:45:00 AM, [address] [place] [address], [phone], Provider Name:Arnulfo crowley, 05/19/2025 07:15:00 AM, [address] [place] [address], [phone], Provider Name:Arnulfo Pritchett ier, 05/26/2025 10:45:00 AM, [address], [address], [place], [phone], Provider Name:Arnulfo Pritchett ier, 11/23/2025 08:15:00 AM, [address] [facility], [address], [place], [phone], Provider Name:Arnulfo Pritchett ier, 11/30/2025 11:00:00 AM, [address] [facility], [address], [place], [phone], Progress Notes * Renata FULTON MDOB:[birth year] (74 yo F)Acc No.[id number]:11/17/2024 Patient:?Renata FULTON M Provider:?Arnulfo Villalba MD :1950???Age:74 Y???Sex:Female D ate:11/17/2024 Address:[address] [place] [address] [place], [id number] Subjective: * Chief Complaints: * ???1. UTI. 2. Audio [phone]. * HPI: ???Symptom(s):?Telehealth?Location of provider rendering services:?[address] [place] [address], [address],?Location of patient:?at address listed in demographics for today's visit,?Patient identification confirmed using:?Name, ,?Telehealth method:?Telephone only. Patient not visible to care provider.,?Consent:?Patient verbally consented to treatment, Patient verbally consented to billing insurance company, Patient informed of any privacy concerns related to method of visit,?Total time spend talking with patient (minutes)?20.? patient is a 74 yo female audio telehealth visit, with cmplaint of UTI, having burning and frequency and trouble goiing. * ROS:?General/Constitutional:?Denies?Chills.?Denies?Fatigue.?Denies?Fever.?Denies?Headache.?ENT:?Patient denies?decreased sense of smell , any loss of taste , sore throat.?Denies?Sore throat.?Respiratory:?Denies?Cough.?Denies?Shortness of breath at rest.?Denies?Shortness of breath with exertion.?Gastrointestinal:?Denies?Diarrhea.?Denies?Nausea.?Genitourinary:?Admits?Abdominal pain/swelling.?Admits?Difficulty urinating.?Admits?Pain in lower back.?Denies?Painful urination.?Musculoskeletal:?Patient denies?muscle aches.?Peripheral Vascular:?Patient denies?red and blue toes.? * Medical History:? * Medications:?Taking LORazepa m 0.5 MG Tablet 1 tablet at bedtime as needed Orally Once a day , Taking Tylenol Extra Strength 500 MG Tablet 1 tablet as needed Orally every 6 hrs , Taking ZyPREXA 2.5 MG Tablet 1 tablet Orally Once a day , Taking busPIRone HCl 10 MG Tablet 1 tablet Orally Twice a day , Taking chlordiazePOXIDE HCl 5 MG Capsule ( Drug) TAKE ONE CAPSULE BY MOUTH TWICE A DAY NEEDED Orally three times a day , Taking Vitamin D3 2000 UNIT Capsule 1 tablet Orally Once a day , Taking Ventolin HFA * 108 (90 Base) MCG/ACT Aerosol Solution 2 puffs as needed Inhalation every 4 hrs , Taking Fluticasone Propionate 50 MCG/ACT Suspension INSTILL ONE (1) SPRAY INTRANASALLY TWICE DAILY Nasally Twice a day , Taking Alendronate Sodium 70 MG Tablet TAKE 1 TABLET BY MOUTH 1 TIME PER WEEK , Taking Atorvastatin Calcium 40 MG Tablet take 1 tablet by mouth once daily Orally Once a day , Taking Lisinopril 20 MG Tablet TAKE 1 TABLET BY MOUTH ONCE DAILY , Taking amLODIPine Besylate 5 MG Tablet TAKE 1 TABLET BY MOUTH ONCE DAILY Orally Once a day , Taking Omeprazole 40 MG Capsule Delayed Release TAKE 1 CAPSULE BY MOUTH TWICE DAILY Orally Once a day , Taking Carvedilol 25 MG Tablet TAKE 1 TABLET BY MOUTH TWICE DAILY Orally Twice a day , Taking PARoxetine HCl 30 MG Tablet TAKE 1 TABLET BY MOUTH EVERY DAY Oral Once a day , Not-Taking/PRN Aspir-Low 81 MG Tablet Delayed Release 1 tablet Orally Once a day , Not-Taking/PRN Magnesium Oxide 400 MG Tablet 1 tablet with food orally BID , Not-Taking/PRN hydroCHLOROthiazide 12.5 MG Tablet TAKE 1 TABLET BY MOUTH EVERY DAY IN THE MORNING FOR 90 DAYS , Not-Taking/PRN Cephalexin 500 MG Capsule 1 capsule Orally 2 times a day , Not-Taking/PRN Pyridium 100 MG Tablet 1 tablet after meals Orally Three times a day , Medication List reviewed and reconciled with the patient Objective: * Vitals:? Assessment: * Assessment: 1.?Acute UTI - N39.0 (Primar y)??? Plan: * Treatment: * * The named appointment provid er may or may not be the originator of this progress note, and it is not deemed complete until electronically signed by the appointment provider. Sign off status: Pending * Provider:?Arnulfo Villalba MD Date:?0 11/17/2024 Generated for Rosi wright/Cole/eTransmitting on:?11/28/2024 02:41 PM EST History and Physical Notes * HPI (History of Present Illness) Category Sub-Category Detail Notes Category Not es Symptom(s) Telehealth Location of [facility] rendering services:: [address], [address] patient is a 74 yo female audio telehealth visit, with cmplaint of UTI, having burning and frequency and trouble goiing Location of patient:: at address listed in [...]
--- OUTSIDE RECORDS SUMMARY | 2024-11-28 14:41 | XMS_ITS ---
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 Role Phone Arnulfo Villalba Primary Care Provider Allergies Allergen (clinical drug ingredient) Drug/Non Drug Allergy documented on EMR Reaction Allergy Type Onset Date Status Codeine Phosphate Soluble sweats,shakes Drug Allergy Active eggs (uncoded) heartburn Allergy Activ e antihistamines (uncoded) shakes and sweats Allergy Active hydrochlorothiazide hydroCHLOROthiazide hyponatremia D rug Allergy Active Results Component Value Reference Range Notes Occult Blood, Stool, Guaiac Reviewed date:11/25/2024 01:27:41 PM Interpretation:Negative Performing Lab: Notes/Report: Negative Occult Blood, Stool, Guaiac Neg Reason For Referral Reason LESION OF BREAST Diagnosis 1 Lesion of breast (N6 4.9) Referral Organization Arnulfo Villalba MD Referring Provider First Name Arnulfo Referring Provider Last Name Orly Referring Provider Speciality Internal M edicine Referred Provider Nitesh Oroczo Referred Provider Specialty Surgery General Notes Chyna Cota 0 11/25/2024 11:35:50 AM >PATIENT NEEDS TO HAVE HER MAMMOGRAM DONE FIRST THEN APPT CAN BE BOOKED Referral Priority Routine REASON FOR VISIT Annual Medications Medication SIG (Take, Route, Frequency, Duration) Notes Start Date End Date Status hydroCHLOROthiazide 12.5 MG TAKE 1 TABLE T BY MOUTH EVERY DAY IN THE MORNING FOR 90 DAYS Not-Taking Carvedilol 25 MG TAKE 1 TABLET BY MOUTH TWICE DAILY Orally Twice a day Active PARoxetine HCl 30 MG TAKE 1 TABLET BY MOUTH EVERY DAY Oral Once a day Active Pyridium 100 MG 1 tablet after meals Orally Three times a day for 2 day(s) 10/16/2022 Not-Taking Cephalexin 500 MG 1 capsule Orally 2 times a day for 5 day(s) 10/16/2022 Not-Taking Aspir-Low 81 MG 1 tablet Orally Once a day for 30 day(s) Not-Taking Pyridium 100 MG 1 tablet after meals Orally Three times a day for 3 days 11/17/2024 Not-Taking Magnesium Oxide 400 MG 1 tablet with carlota d orally BID Not-Taking amLODIPine Besylate 5 MG TAKE 1 TABLET B Y MOUTH ONCE DAILY Orally Once a day Active Lisinopril 20 MG TAKE 1 TABLET BY MOUTH ONCE DAILY Active Alendronate Sodium 70 MG TAKE 1 TABLET B Y MOUTH 1 TIME PER WEEK Active Cephalexin 500 MG 1 capsule Orally twice a day for 5 days 11/17/2024 Not-Taking busPIRone HCl 10 MG 1 tablet Orally Twice a day Active Omeprazole 40 MG TAKE 1 CAPSULE BY MOUTH TWICE DAILY Orally Once a day for 90 days Active Atorvastatin Calcium 40 MG take 1 tablet by mouth once daily Orally Once a day Active Ventolin HFA * 108 (90 Base) MCG/ACT 2 puffs as needed Inhalation every 4 hrs 08/02/2021 Active Vitamin D3 2000 UNIT 1 tablet Orally Onc e a day 01/03/2014 Active Fluticasone Propionate 50 MCG/ACT INSTILL ONE (1) SPRAY INTRANASALLY TWICE DAILY Nasally Twice a day for 90 days Active ZyPREXA 2.5 MG 1 tablet Orally Once a day for 30 day(s) Active chlordiazePOXIDE HCl 5 MG ( Drug) TAKE O NE CAPSULE BY MOUTH TWICE A DAY NEEDED Orally three times a day Active Tylenol Extra Strength 500 MG 1 tablet as needed Orally every 6 hrs Active LORazepam 0.5 MG 1 tablet at bedtime as needed Orally Once a day Active Social History Tobacco Use: Social History Observation Description Date Details (start date - stop date) Former Smoker NA - NA Tobacco Use/Smoking Question Answer Notes Patient is a former smoker How long has it been since y ou last smoked? > 10 years Additional Findings: Tobacco Non-User Fo rmer smoker, currently using no form of tobacco Alcohol Screen Question Answer Notes Did you have a drink containing alcohol in the p ast year? No Points 0 Interpretation Negative Vital Signs Blood pressure systolic 102 mm Hg 11/25/19 25 Blood pressure diastolic 64 mm Hg 025 Height 60 in 11/25/2024 Weight 133 lbs 11/25/2024 BMI 25.97 kg/m2 11/25/2024 weight is down 3 pounds reading hospital e 11-11-24 Encounters Encounter Location Date Provider Diagnosis Arnulfo Villalba MD [address] [place], [place] [phone] 11/25/2024 Arnulfo Villalba Dysthymic disorder F34.1 ; Annual physical exam Z00.00 ; Essential hypertension I10 ; Lesion of breast N64.9 ; Mixed hyperlipidemia E78.2 ; Colon cancer screening Z12.11 and Depression screening Z13.31 Assessments Encounter Date Diagnosis (ICD Code) Assessment Notes Treatment Notes Treatment Clinical Notes Section Notes 11/25/2024 Dysthymic disorder (ICD-10 - F34.1) has gotten worse since surgery 11/25/2024 Annual physical exam (ICD-10 - Z00.00) labs reviewed and discussed with patient 11/25/2024 Essential hypertension (ICD-10 - I10) doing well on meds, will continue current regiment 11/25/2024 Lesion of breast (ICD-10 - N64.9) referral to dr angel 11/25/2024 Mixed hyperlipidemia (ICD-10 - E78.2) stable, will continue current regiment 11/25/2024 Colon cancer screening (ICD-10 - Z12.11) guaiac negative 11/25/2024 Depression screening (ICD-10 - Z13.31) negative screen Plan Of Treatment Medication Medication Name Sig Start Date Stop Date Notes Carvedilol 25 MG TAKE 1 TABLET BY HERIBERTO TH TWICE DAILY Orally Twice a day PARoxetine HCl 30 MG TAKE 1 TABLET BY MO UT EVERY DAY Oral Once a day amLODIPine Besylate 5 MG TAKE 1 TABLET B Y MOUTH ONCE DAILY Orally Once a day Lisinopril 20 MG TAKE 1 TABLET BY HERIBERTO TH ONCE DAILY busPIRone HCl 10 MG 1 tablet Orally Twice a day Atorvastatin Calcium 40 MG take 1 tablet by mouth once daily Orally Once a day Treatment Notes Assessment Notes Dysthymic disorder has gotten worse sin surgery Annual physical exam labs reviewed and d iscussed with patient Essential hypertension doing well on med s, will continue current regiment Lesion of breast referral to dr angel Mixed hyperlipidemia stable, will contin ue current regiment Colon cancer screening guaiac negative Depression screening negative screen Pending Test Test Name Order Date MAMMOGRAM DIGITAL BILATERAL SCREEN 11/25 Referrals Referral Date Details 11/25/2024 11/25/2024, LESION O F BREAST, Nitesh Orozco Next Appt Details Follow Up: 3 Months, Reason: Provider Name:Arnulfo castellonr, 11/29/2024 09:00:00 AM, [address] [place] [address], [address], [phone], Provider Name:Arnulfo castellonr, 02/23/2025 10:45:00 AM, [address] [place] [address], [address], [phone], Provider Name:Arnulfo castellonr, 05/19/2025 07:15:00 AM, [address] [place] [address], [address], [phone], Provider Name:Arnulfo castellonr, 05/26/2025 10:45:00 AM, [address] [place] [address], [address], [phone], Provider Name:Arnulfo castellonr, 11/23/2025 08:15:00 AM, [address] [place] [address], [address], [phone], Provider Name:Arnulfo castellonr, 11/30/2025 11:00:00 AM, [address] [place] [address], [address], [phone], Progress Notes * Renata FULTON MDOB:[birth year] (74 yo F)Acc No.[id number]:11/25/2024 Progress Notes Patient:?Renata FULTON M Provider:?Arnulfo Villalba MD :1950???Age:74 Y???Sex:Female D ate:11/25/2024 Address:[address] [place], [place] [id number] Subjective: * Chief Complaints: * ???1. Annual. * HPI: ???Depression Screening:?PHQ-9?Little interest or pleasure in doing things?Several days,?Feeling down, depressed, or hopeless?Several days,?Trouble falling or staying asleep, or sleeping too much?Several days,?Feeling tired or having little energy?Several days,?Poor appetite or overeating?Several days,?Feeling bad about yourself or that you are a failure, or have let yourself or your family down?Not at all,?Trouble concentrating on things, such as reading the newspaper or watching television?Not at all,?Moving or speaking so slowly that other people could have noticed; or the opposite, being so fidgety or restless that you have been moving around a lot more than usual?Not at all,?Thoughts that you would be better off or of hurting yourself in some way?Not at all,?Total Score?5,?Interpretation?Mild Depression.?Interpretation and Intervention?Depression Screening Findings?Positve - Review of PHQ-9 found positive for depression,?Follow-Up for Depression?: Existing condition.?Communication Needs:?Communication Needs?Does the patient have a hearing impairment?No,?Does the patient have a vision impairment??Yes,?If yes, what is the vision impairment??Glasses,?Does the patient have a cognition impairment??No.?Fall Risk:?History?Have you had any falls with injury in the past year??No,?Have you had two or more falls in the past year??No.?SDOH Questions:?SDOH Questions?In the past year have you been worried about losing housing??No,?In the past year have you or any family members you live with been unable to get any of the following when it was really needed? Check all that apply:?None.?Depression Screening:?PHQ-2 (2015 Edition)?Little interest or pleasure in doing things??More than half the days,?Feeling down, depressed, or hopeless??More than half the days,?Total Score?4.?Symptom(s):? patient is a here for yearly evaluation with review of recent labs and follow up of chronic issues, . still having trouble urinating. * ROS:?General/Constitutional:?Patient denies?fatigue, headache.?Change in appetite?denies.?Chills?denies.?Fever?denies.?Ophthalmologic:?Blurred vision?denies.?Discharge?denies.?Pain?denies.?ENT:?Patient denies?decreased sense of smell, any loss of taste, sore throat.?Decreased hearing?denies.?Sore throat?denies.?Swollen glands?denies.?Endocrine:?Cold intolerance?denies.?Excessive thirst?denies.?Heat intolerance?denies.?Weight loss?denies.?Respiratory:?Cough?denies.?Shortness of breath at rest?denies.?Shortness of breath with exertion?denies.?Wheezing?denies.?Cardiovascular:?Chest pain at rest?denies.?Chest pain with exertion?denies.?Irregular heartbeat?denies.?Shortness of breath?denies.?Gastrointestinal:?Abdominal pain?denies.?Change in bowel habits?denies.?Diarrhea?denies.?Nausea?denies.?Rectal bleeding?denies.?Vomiting?denies .?Genitourinary:?Blood in urine?denies.?Difficulty urinating?denies.?Frequent urination?denies.?Urinary incontinence?Denies.?Musculoskeletal:?Patient denies?muscle aches.?Painful joints?denies.?Weakness?denies.?Peripheral Vascular:?Patient denies?red and blue toes.?Skin:?Dry skin?denies.?Itching?denies.?Denies?Mole(s),? changes in moles, new moles or any lesions of concern.?Denies?Photosensitivity.?Rash?denies.?Neurologic:?Dizziness?denies.?Fainting?denies.?Headache?denies.? * Medical History:?Refused col onoscopy 2013 2014 2015 2017 colonascopy 2019 with adenoma, cologard 2017; Colonoscopy 01/17/[address] Belkys Cruz - repeat 5 years w/FIT 1 & 3 yrs. * Family History:?Father: dece ased 72 yrs.?Mother: 102 yrs, diagnosed with Hypertension, Asthma, COPD.?1 brother(s) . .? Father-Cardiac brother history of Substance abuse and mental illness, Denies mental health brother is an alcoholic, Denies mental health/substance abuse family history, Denies mental health/substance abuse family history. * Social History:?Tobacco Use:?Tobacco Use/Smoking?Patient is a?former smoker,?How long has it been since you last smoked??> 10 years,?Additional Findings: Tobacco Non-User?Former smoker, currently using no form of tobacco.?Drugs/Alcohol:?Alcohol Screen?Did you have a drink containing alcohol in the past year??No,?Points?0,?Interpretation?Negative.?Miscellaneous:?Caffeine: no. Children: no. Community involvements: no. Exercise: no. Home smoke detector use: yes. Housing: owning. Living with: family. Marital status: single. Occupation: weeks/months/years, retired. Pets: cats: dogs:2 dogs 1 cat. Travel outside of the [place]: no. * Medications:?Taking LORazepa m 0.5 MG Tablet [...] DAY Oral Once a day , Not-Taking/PRN Cephalexin 500 MG Capsule 1 capsule Orally twice a day , Not-Taking/PRN Pyridium 100 MG Tablet 1 tablet after meals Orally Three times a day , Not-Taking/PRN Aspir-Low 81 MG [...] List reviewed and reconciled with the patient * Allergies:?Codeine Phosphate Soluble: sweats,shakes, antihistamines: shakes and sweats, eggs: heartburn, hydroCHLOROthiazide: hyponatremia. Objective: * Vitals:?Ht: 60, Wt: 133, BMI :25.97, BP:102/64, Wt-k.33. weight is down 3 pounds since 11-11-24. * ???Past Orders: ???Lab:Lipid Panel (Order Da te - 11/18/2024) (Collection Date & Time - 11/18/2024 07:15 AM) ? Value Reference Range ?Triglycerides 87 <150 - mg/dL ?Cholesterol 174 <200 - m g/dL ?LDL Cholesterol Calculated 64 <100 - mg/dL ?HDL Cholesterol 93 >40 - mg/dL ???Lab:UA CC w/rflx Micro + Cult (Order Date - 11/18/2024) (Collection Date & Time - 11/18/2024 07:15 AM) ? Value Reference Range ?Color Urine Dark Yellow - ?Appearance Urine Cloudy - ?PH 7.0 5.0-9.0 - ?Glucose Urine UA Negative Neg ative - mg/dL ?Urine Blood Negative Negative - ?Specific [place] - Urine 1.010 1.005-1.025 - ?Urine Protein Trace Neg-Tr alvarez - mg/dL ?Urine Ketones 15 Negati ve - mg/dL ?Nitrite Urine Positive A Negati ve - ?Leukocyte Esterase Urine Large (3+) A Negative - ???Lab:Complete Blood Count Auto Diff (Order Date - 11/18/2024) (Collection Date & Time - 11/18/2024 07:15 AM) ? Value Reference Range ?White Blood Count 6.4 4. 8-10.8 - X10*3/uL ?Red Blood Count 4.71 4.20 -5.50 - X10*6/uL ?Hemoglobin 12.8 12.0-16.0 - g/dl ?Hematocrit 39.9 37.0-47.0 - % ?Mean Corpuscular Volume 84.7 80.0-98.0 - fL ?Mean Corpuscular Hemoglobin 27.2 27.0-33.0 - pg ?Mean Corpuscular HGB Conc 32.1 31.0-35.0 - g/dl ?Red Cell Distribution Width 15.3 11.0-16.0 - % ?Platelet Count 384 160-4 00 - X10*3/uL ?Mean Platelet Volume 9.6 9.4-12.3 - fL ?Neutrophils Percent Auto 63.0 45-73 - % ?Imm Gran Pct Auto 0.3 0. 0-0.4 - % ?Lymphocytes Percent Auto 25.3 20-40 - % ?Monocytes Percent Auto 8.5 2-11 - % ?Eosinophils Percent Auto 2.0 0-4 - % ?Basophils Percent Auto 0.9 0-2 - % ?NRBC Pct Auto 0.0 0.0-0. 2 - /100WBC ?Neutrophils Absolute Auto 4.1 2.0-8.3 - x10*3/uL ?Imm Gran Abs Auto 0.02 0. 00-0.03 - X10*3/uL ?Lymphocytes Absolute Auto 1.6 1.2-4.9 - X10*3/uL ?Monocytes Absolute Auto 0.6 0.1-1.2 - X10*3/uL ?Eosinophils Absolute Auto 0.1 0.0-0.4 - X10*3/uL ?Basophils Absolute Auto 0.1 0.0-0.2 - X10*3/uL ?NRBC Abs Auto 0.000 0.0-0. 012 - X10*3/uL ???Lab: ClnCatch+Micro w/r flx Cult (Order Date - 11/18/2024) (Collection Date & Time - 11/18/2024 07:15 AM) ? Value Reference Range ?Color Urine Dark Yellow - ?Appearance Urine Cloudy - ?PH 7.0 5.0-9.0 - ?Glucose Urine UA Negative Neg ative - mg/dL ?Urine Blood Negative Negative - ?Specific [place] - Urine 1.010 1.005-1.025 - ?Urine Protein Trace Neg-Tr alvarez - mg/dL ?Urine Ketones 15 Negati ve - mg/dL ?Nitrite Urine Positive A Negati ve - ?Leukocyte Esterase Urine Large (3+) A Negative - ?RBC Urine 0-2 0-2 - /HPF ?WBC Urine 21-50 A 0-5 - /HPF ?Squamous Epithelial Cell Urine >20 0-2 - /HPF ?Bacteria Urine Trace None Seen - ?Hyaline Casts Urine 0-2 0-2 - /LPF ???Lab:Comprehensive Offerle. P nilsa Fast (Order Date - 11/18/2024) (Collection Date & Time - 11/18/2024 07:15 AM) ? Value Reference Range ?Sodium 139 135-145 - mmo l/L ?Bilirubin Total 0.5 0.0- 1.0 - mg/dL ?Aspartate Amino Transferase 26 5-31 - U/L ?Alanine Aminotransferase 14 0-31 - U/L ?Total Protein 7.9 6.5-8. 0 - g/dL ?Albumin Level 4.6 3.5-5. 0 - g/dL ?Alkaline Phosphatase 77 39-117 - U/L ?Potassium 3.7 3.3-5.1 - mmol/L ?Chloride 104 96-108 - mm ol/L ?Carbon Dioxide 25 22-29 - mmol/L ?Anion Gap 14 12-20 - ?Blood Urea Nitrogen 5 L 9-16 - mg/dL ?Creatinine 0.74 0.5-1.4 - mg/dL ?Estimated Glomerular Filt Rate > 60 - ?Glucose Fasting 97 60-9 9 - mg/dL ?Calcium 9.1 8.4-10.2 - m g/dL ???Lab:Urine Culture (Order Date - 11/18/2024) (Collection Date & Time - 11/18/2024) ? Value Reference Range ?Urine Culture urogenital contamination. - * Examination: ???General Examination: ?GENERAL APPEARANCE:?well developed, well nourished, in no acute distress.?HEAD:?normocephalic, atraumatic.?EYES:?pupils equal, round, reactive to light and accommodation, sclera non-icteric.?EARS:?normal.?ORAL CAVITY:?mucosa moist.?THROAT:?clear.?NECK/THYROID:?neck supple, full range of motion, no cervical lymphadenopathy, no bruits.?SKIN:?warm and dry, no suspicious lesions.?HEART:?regular rate and rhythm, S1, S2 normal, no murmurs.?LUNGS:?clear to auscultation bilaterally.?BREASTS:?No mass, no lump, abnormal with some? left upper quadrant thicking.?ABDOMEN:?soft, nontender, nondistended, bowel sounds present, normal, no organomegaly , no masses palpable.?RECTAL EXAM:?no masses palpable, stool guaiac negative.?FEMALE GENITOURINARY:?not done.?EXTREMITIES:?no clubbing, cyanosis, or edema.?NEUROLOGIC:?nonfocal, motor strength normal upper and lower extremities, sensory exam intact.? Assessment: * Assessment: 1.?Annual physical exam - Z0 0.00 (Primary)???2.?Dysthymic disorder - F34.1???3.?Essential hypertension - I10???4.?Lesion of breast - N64.9???5.?Mixed hyperlipidemia - E78.2???6.?Colon cancer screening - Z12.11???7.?Depression screening - Z13.31??? Plan: * Treatment: 2.?Dysthymic disorder? Continue busPIRone HCl Tablet, 10 MG, 1 tablet, Orally, Twice a day;?Continue PARoxetine HCl Tablet, 30 MG, TAKE 1 TABLET BY MOUTH EVERY DAY, Oral, Once a day.?? Notes: has gotten worse since surgery?? 3.?Essential hypertension? Continue Lisinopril Tablet, 20 MG, TAKE 1 TABLET BY MOUTH ONCE DAILY;?Continue amLODIPine Besylate Tablet, 5 MG, TAKE 1 TABLET BY MOUTH ONCE DAILY, Orally, Once a day;?Continue Carvedilol Tablet, 25 MG, TAKE 1 TABLET BY MOUTH TWICE DAILY, Orally, Twice a day.?? Notes: doing well on meds, will continue current regiment?? 4.?Lesion of breast?Imaging: MAMMOGRAM DIGITAL BILATERAL SCREEN Notes: referral to dr angel? Referral To:Nitesh Orozco??Surgery ?Reason:LESION OF BREAST 5.?Mixed hyperlipidemia? Continue Atorvastatin Calcium Tablet, 40 MG, take 1 tablet by mouth once daily, Orally, Once a day.?? Notes: stable, will continue current regiment?? 6.?Colon cancer screening?LAB: Occult Blood, Stool, Guaiac (Collection Date & Time - 11/25/2024)?Negative ? Value Reference Range ?Occult Blood, Stool, Guaiac Neg Notes: guaiac negative??7.?Depression screening? Notes: negative screen?? * Procedure Codes:?19866 TEST FOR BLOOD, FECES * Preventive Medicine:? ??Counseling:?Care goal follow-up plan:?Counseling for abnormal BMI provided?Yes,?Above Normal BMI Follow-up?Giving encouragement to exercise.? * Follow Up:?3 Months * * The named appointment provid er may or may not be the originator of this progress note, and it is not deemed complete until electronically signed by the appointment provider. Sign off status: Pending * Provider:?Arnulfo Villalba MD Date:?0 11/25/2024 Generated for Rosi wright/Cole/eTransmitting on:?11/28/2024 02:41 PM EST History and Physical Notes * HPI (History of Present Illness) Category Sub-Category Detail Notes Category Not es Symptom(s) patient is a he re for yearly evaluation with review of recent labs and follow up of chronic issues, . still having trouble urinating Depression Screening PHQ-9 Little inte rest or pleasure in doing things: Several days Feeling down, depressed, or hopeless: Se veral days Trouble falling or staying asleep, or sl eeping too much: Several days Feeling tired or having little energy: S everal days Poor appetite or overeating: Several day s Feeling bad about yourself o r that you are a failure, or have let yourself or your family down: Not at all Trouble concentrating on thi ngs, such as reading the newspaper or watching television: Not at all Moving or speaking so slowly that other people could have noticed; or the opposite, being so fidgety or restless that you have been moving around a lot more than usual: Not at all Thoughts that you would be b geetha off or of hurting yourself in some way: Not at all Total Score: 5 Interpretation: Mild Depression Interpretation and Intervention Depressi on Screening Findings: Positve - Review of PHQ-9 found positive for depression Follow-Up for Depression: : Existing con dition SDOH Questions SDOH Questions In the past year have you been worried about losing housing?: No In the past year have you or any family members you live with been unable to get any of the following when it was really needed? Check all that apply:: None Fall Risk History Have you had any falls with injury i n the past year?: No Have you had two or more falls in the year?: No Communication Needs Communication Needs Does the patient have a hearing impairment: No Does the patient have a vision impairmen t?: Yes ?If yes, what is the vision impairment?: Glasses Does the patient have a cognition impair ment?: No Depression Screening PHQ-2 (2015 Edition) Little interest or pleasure in doing things?: More than half the days Feeling down, depressed, or hopeless?: M ore than half the days Total Score: 4 Examination Category Sub-Category Detail Notes Category Not es General Examination GENERAL APPEARANCE: well dev eloped, well nourished, in no acute distress HEAD: normocephalic, atrau matic EYES: pupils equal, round, reactive to light and accommodation, sclera non- icteric EARS: normal THROAT: clear NECK/THYROID: neck supple, full ra nge of motion, no cervical lymphadenopathy, no bruits HEART: regular rate and rhy thm, S1, S2 normal, no murmurs LUNGS: clear to auscultatio n bilaterally ABDOMEN: soft, nontender, non distended, bowel sounds present, normal, no organomegaly , no masses palpable NEUROLOGIC: nonfocal, motor stre ngth normal upper and lower extremities, sensory exam intact SKIN: warm and dry, no nathaly picious lesions EXTREMITIES: no clubbing, cyanosi s, or edema BREASTS: No mass, no lump, ab normal with some left upper quadrant thicking RECTAL EXAM: no masses palpable, stool guaiac negative FEMALE GENITOURINARY: not done ORAL CAVITY: mucosa moist Consultation Request Notes Referral Date Referring Provider Referred Provider Not es 11/25/2024 Arnulfo Villalba John LESION OF BREAST
--- OUTSIDE RECORDS SUMMARY | 2024-11-28 14:41 | XMS_ITS ---
Author Organization Arnulfo Villalba MD Address [address] [place], [place] [phone] Care Team Providers Care Hotel Dining Room Cashier Name Role Phone Arnulfo Villalba Primary Care Provider [phone] Results Component Value Reference Range Notes Complete Blood Count Auto Di ff Reviewed date:11/18/2024 01:38:30 PM Interpretation: Performing Lab:[facility], [address] [place] [phone] Notes/Report: White Blood Count 6.4 4.8-10.8 X10*3/uL [...] NRBC Abs Auto 0.000 0.0-0.012 X10*3/uL Comprehensive [place]. Panel Fa st Reviewed date:11/18/2024 01:39:06 PM Interpretation: Performing Lab:[facility], [address] [place] [phone] Notes/Report: Sodium 139 135-145 mmol/L Potassium 3.7 [...] Panel Reviewed date:11/18/2024 12:34:27 PM Interpretation: Performing Lab:[address] [phone] Notes/Report: Triglycerides 87 <150 mg/dL Desirable Triglyceride: [...] t Reviewed date:11/18/2024 01:38:46 PM Interpretation: Performing Lab:[facility], [address] [place] [phone] Notes/Report: [id number] 0715 Urine, Clean Catch Color Urine Dark Yellow Appearance Urine Cloudy PH 7.0 5.0-9.0 Glucose Urine UA Negative Negative mg/dL Urine Blood Negative Negative Specific [place] - Urine 1.010 1.005-1.025 Urine Protein Trace [...] Location Date Provider Diagnosis Arnulfo Villalba MD [address] [place] [address] [address] [place], [place] [phone] 11/18/2024 Arnulfo Villalba Blood tests for routine general physical examination Z00.00 ; Essential hypertension I10 ; Mixed hyperlipidemia E78.2 ; Lupus M32.9 and Hypomagnesemia E83.42 Assessments Encounter Date Diagnosis (ICD Code) Assessment Notes Treatment Notes Treatment Clinical Notes Section Notes 11/18/2024 Blood tests for routine general physical examination (ICD-10 - Z00.00) 11/18/2024 Essential hypertension (ICD-10 - I10) 11/18/2024 Mixed hyperlipidemia (ICD-10 - E78.2) 11/18/2024 Lupus (ICD-10 - M32.9) 11/18/2024 Hypomagnesemia (ICD-10 - E83.42) Plan Of Treatment Next Appt Details Provider Name:Arnulfo Pritchett ier, 11/29/2024 09:00:00 AM, [address], Suite [facility], [place], [phone], Provider Name:Arnulfo Curt Shreyas ier, 02/23/2025 10:45:00 AM, [address] [facility], Suite [facility], [place], [place], [phone], Provider Name:Arnulfo Pritchett ier, 05/19/2025 07:15:00 AM, [address] [facility], Suite [facility], [place], [place], [phone], Provider Name:Arnulfo Curt Shreyas ier, 05/26/2025 10:45:00 AM, [address] [place] [address], Suite [facility], [place], [place], [phone], Provider Name:Arnulfo Curt Shreyas ier, 11/23/2025 08:15:00 AM, [address] [place] [address], Suite [facility], [place], [place], [phone], Provider Name:Arnulfo Jimenezvy ier, 11/30/2025 11:00:00 AM, [address] [place] [address], Suite [facility], [place], [place], [phone], Progress Notes * Renata FULTON MDOB:[birth year] (74 yo F)Acc No.[id number]:11/18/2024 Progress Note Patient:?Renata FULTON Provider:?Arnulfo Villalba MD :1950???Age:74 Y???Sex:Female D ate:11/18/2024 Address:[address] [place], [place] [phone] Subjective: * Chief Complaints: * ???1. Fasting labs. * Medical History:? Objective: * Vitals:? Assessment: * Assessment: 1.?Blood tests for routine g eneral physical examination - Z00.00 (Primary)???2.?Essential hypertension - I10???3.?Mixed hyperlipidemia - E78.2???4.?Lupus - M32.9???5.?Hypomagnesemia - E83.42??? Plan: * Treatment: 2.?Essential hypertension?LAB: Complete Blood Count Auto Diff (Collection Date & Time - 11/18/2024 07:15 AM) ?LAB: Comprehensive [place]. Panel Fast (Collection Date & Time - 11/18/2024 07:15 AM) ?LAB: Lipid Panel (Collection Date & Time - 11/18/2024 07:15 AM) ?LAB: UA ClnCatch+Micro w/rflx Cult (Collection Date & Time - 11/18/2024 07:15 AM) 3.?Mixed hyperlipidemia?LAB: Complete Blood Count Auto Diff (Collection Date & Time - 11/18/2024 07:15 AM) ?LAB: Comprehensive [place]. Panel Fast (Collection Date & Time - 11/18/2024 07:15 AM) ?LAB: Lipid Panel (Collection Date & Time - 11/18/2024 07:15 AM) ?LAB: UA ClnCatch+Micro w/rflx Cult (Collection Date & Time - 11/18/2024 07:15 AM) 4.?Lupus?LAB: Complete Blood Count Auto Diff (Collection Date & Time - 11/18/2024 07:15 AM) ?LAB: Comprehensive [place]. Panel Fast (Collection Date & Time - 11/18/2024 07:15 AM) ?LAB: Lipid Panel (Collection Date & Time - 11/18/2024 07:15 AM) ?LAB: UA ClnCatch+Micro w/rflx Cult (Collection Date & Time - 11/18/2024 07:15 AM) 5.?Hypomagnesemia?LAB: Complete Blood Count Auto Diff (Collection Date & Time - 11/18/2024 07:15 AM) ?LAB: Comprehensive [place]. Panel Fast (Collection Date & Time - 11/18/2024 07:15 AM) ?LAB: Lipid Panel (Collection Date & Time - 11/18/2024 07:15 AM) ?LAB: UA ClnCatch+Micro w/rflx Cult (Collection Date & Time - 11/18/2024 07:15 AM) * Procedure Codes:?39695 VENIP UNCT, ROUTINE* * * The named appointment provid er may or may not be the originator of this progress note, and it is not deemed complete until electronically signed by the appointment provider. Sign off status: Pending * Provider:?Arnulfo Villalba MD Date:?0 11/18/2024 Generated for Rosi wright/Cole/Batoolitting on:?11/28/2024 02:41 PM EST
== END 2024-11-28 11:13 | disposition home or self-care (01) ==
LOC: HO.HOP 10:07
PROVIDERS: PCP Internal Medicine; Visit Provider Psychiatry & Neurology Psychiatry
DX: F41.8 Other specified anxiety disorders (principal); F41.0 Panic disorder [episodic paroxysmal anxiety]
CPT/HCPCS: 90833; 99213

== ENCOUNTER → 2024-11-28 10:07 | Outpatient (BNVA) | payer MEDICARE, SELFPAY | PROVIDERS: PCP Internal Medicine; Visit Provider Psychiatry & Neurology Psychiatry | DX: F41.8 Other specified anxiety disorders (principal); F41.0 Panic disorder [episodic paroxysmal anxiety] | CPT/HCPCS: 99212 ==

== ENCOUNTER 2024-11-29 09:00 | Outpatient (REF) | payer MEDICARE, SELFPAY ==
[2024-11-29 10:36] LABS: Appearance Urine Clear; Color Urine Yellow; Glucose Urine UA Negative (Negative); Leukocyte Esterase Urine Trace (Negative); Nitrite Urine Negative (Negative); PH 7.5 (5.0-9.0); UMIC TRIGGER UACC YES; Urine Blood Negative (Negative); Urine Ketones Negative (Negative); Urine Protein Negative (Neg-Trace)
[2024-11-29 10:42] LABS: Bacteria Urine None Seen (None Seen); Hyaline Casts Urine 0-2 /LPF (0-2); RBC Urine 0-2 /HPF (0-2); WBC Urine 0-5 /HPF (0-5)
--- OUTSIDE RECORDS SUMMARY | 2024-11-29 11:09 | XMS_ITS ---
Author Organization Arnulfo Villalba MD Address [address] [place], [place] [phone] Care Team Providers Care Report Developer Name Role Phone Arnulfo Villalba Primary Care Provider Results Component Value Reference Range Notes UA ClnCatch+Micro w/rflx Cul t (Not yet reviewed by provider) Interpretation: Performing Lab:[facility], [address] [place] [phone] Notes/Report: [id number] 0900 Urine, Clean Catch Color Urine Yellow Appearance Urine Clear PH 7.5 5.0-9.0 Glucose Urine UA Negative Negative mg/dL Urine Blood Negative Negative Specific [place] - Urine 1.010 1.005-1.025 Urine Protein Negative Neg-Trace mg/dL Urine Ketones Negative Negative mg/dL Nitrite Urine Negative Negative Leukocyte Esterase Urine Trace Negative RBC Urine 0-2 0-2 /HPF WBC Urine 0-5 0-5 /HPF Squamous Epithelial Cell Urine 11-20 0-2 /HPF Bacteria Urine None Seen None Seen Hyaline Casts Urine 0-2 0-2 /LPF REASON FOR VISIT U/A check Medications Medication SIG (Take, Route, Frequency, Duration) Notes Start Date End Date Status Carvedilol 25 MG TAKE 1 TABLET BY MOUTH TWICE DAILY Orally Twice a day Active PARoxetine HCl 30 MG TAKE 1 TABLET BY MOUTH EVERY DAY Oral Once a day Active amLODIPine Besylate 5 MG TAKE 1 TABLET B Y MOUTH ONCE DAILY Orally Once a day Active Atorvastatin Calcium 40 MG take 1 tablet by mouth once daily Orally Once a day Active Lisinopril 20 MG TAKE 1 TABLET BY MOUTH ONCE DAILY Active Pyridium 100 MG 1 tablet after meals Orally Three times a day for 2 day(s) 10/16/2022 Not-Taking busPIRone HCl 10 MG 1 tablet Orally Twice a day Active hydroCHLOROthiazide 12.5 MG TAKE 1 TABLE T BY MOUTH EVERY DAY IN THE MORNING FOR 90 DAYS Not-Taking Cephalexin 500 MG 1 capsule Orally 2 times a day for 5 day(s) 10/16/2022 Not-Taking Magnesium Oxide 400 MG 1 tablet with carlota d orally BID Not-Taking Cephalexin 500 MG 1 capsule Orally twice a day for 5 days 11/17/2024 Not-Taking Pyridium 100 MG 1 tablet after meals Orally Three times a day for 3 days 11/17/2024 Not-Taking Omeprazole 40 MG TAKE 1 CAPSULE BY MOUTH TWICE DAILY Orally Once a day for 90 days Active Alendronate Sodium 70 MG TAKE 1 TABLET B Y MOUTH 1 TIME PER WEEK Active Aspir-Low 81 MG 1 tablet Orally Once a day for 30 day(s) Not-Taking Fluticasone Propionate 50 MCG/ACT INSTILL ONE (1) SPRAY INTRANASALLY TWICE DAILY Nasally Twice a day for 90 days Active Vitamin D3 2000 UNIT 1 tablet Orally Onc e a day 01/03/2014 Active Ventolin HFA * 108 (90 Base) MCG/ACT 2 puffs as needed Inhalation every 4 hrs 08/02/2021 Active ZyPREXA 2.5 MG 1 tablet Orally Once a day for 30 day(s) Active chlordiazePOXIDE HCl 5 MG ( Drug) TAKE O NE CAPSULE BY MOUTH TWICE A DAY NEEDED Orally three times a day Active LORazepam 0.5 MG 1 tablet at bedtime as needed Orally Once a day Active Tylenol Extra Strength 500 MG 1 tablet as needed Orally every 6 hrs Active Encounters Encounter Location Date Provider Diagnosis Arnulfo Villalba MD [address] [place], [place] [phone] 11/29/2024 Arnulfo Villalba Urinary tract infection without hematuria, site unspecified N39.0 Assessments Encounter Date Diagnosis (ICD Code) Assessment Notes Treatment Notes Treatment Clinical Notes Section Notes 11/29/2024 Urinary tract infection without hematuria, site unspecified (ICD-10 - N39.0) Plan Of Treatment Pending Test Test Name Order Date UA ClnCatch+Micro w/rflx Cult 11/29/2024 Next Appt Details Provider Name:Arnulfo Pritchett ier, 02/23/2025 10:45:00 AM, [address] [place] [address], Suite [facility], [place], [place], [phone], Provider Name:Arnulfo Pritchett carline, 05/19/2025 07:15:00 AM, [address] [place] [address], [place] [address], [place], [place], [phone], Provider Name:Arnulfo Curt Shreyas crowley, 05/26/2025 10:45:00 AM, [address] [place] [address], [place] [address], [place], [place], [phone], Provider Name:Arnulfo Curt Shreyas castellonr, 11/23/2025 08:15:00 AM, [address] [place] [address], [place] [address], [place], [phone], Provider Name:Arnulfo Elias Shreyas crowley, 11/30/2025 11:00:00 AM, [address] [place] [address], [address], [phone], Progress Notes * Renata FULTON MDOB:[birth year] (74 yo F)Acc No.[id number]:11/29/2024 Progress Note Patient:?Renata FULTON M Provider:?Arnulfo Villalba MD :1950???Age:74 Y???Sex:Female D ate:11/29/2024 Address:[address] [place] [phone] Subjective: * Chief Complaints: * ???1. U/A check. * Medical History:? * Medications:?Taking LORazepa m 0.5 MG Tablet 1 tablet at bedtime as needed Orally Once a day , Taking Tylenol Extra Strength 500 MG Tablet 1 tablet as needed Orally every 6 hrs , Taking ZyPREXA 2.5 MG Tablet 1 tablet Orally Once a day , Taking chlordiazePOXIDE HCl 5 [...] MOUTH 1 TIME PER WEEK , Taking Omeprazole 40 MG Capsule Delayed Release TAKE 1 CAPSULE BY MOUTH TWICE DAILY Orally Once a day , Taking busPIRone HCl 10 MG Tablet 1 tablet Orally Twice a day , Taking Atorvastatin Calcium 40 MG Tablet [...] after meals Orally Three times a day Objective: * Vitals:? Assessment: * Assessment: 1.?Urinary tract infection w ithout hematuria, site unspecified - N39.0 (Primary)??? Plan: * Treatment: * * The named appointment provid er may or may not be the originator of this progress note, and it is not deemed complete until electronically signed by the appointment provider. Sign off status: Pending * Provider:?Arnulfo Villalba MD Date:?0 11/29/2024 Generated for Rosi wright/Cole/David on:?11/29/2024 11:09 AM EST
--- OUTSIDE RECORDS SUMMARY | 2024-11-29 11:09 | XMS_ITS ---
Author Organization Arnulfo Villalba MD Address [address] [place], [place] [phone] Care Team Providers Care Company Controller Name Role Phone Arnulfo Villalba Primary Care [...] Speciality Internal M edicine Referred Provider Nitesh Orozco Referred Provider Specialty Surgery General Notes Chyna [...] kg/m2 11/25/2024 weight is down 3 pounds [facility] 11-11-24 Encounters Encounter Location Date Provider Diagnosis Arnulfo Villalba MD [address] [facility] [address] [place], [place] [phone] 11/25/2024 Arnulfo Villalba Dysthymic disorder F34.1 ; Annual physical exam Z00.00 ; Essential hypertension I10 ; Lesion of breast N64.9 ; Mixed hyperlipidemia E78.2 ; Colon cancer screening Z12.11 ; Depression screening Z13.31 and Unspecified lump in axillary tail of the left breast N63.32 Assessments Encounter Date Diagnosis (ICD Code) Assessment [...] Depression screening (ICD-10 - Z13.31) negative screen 11/25/2024 Unspecified lump in axillary tail of the left breast (ICD-10 - N63.32) Plan Of Treatment Medication Medication Name Sig Start Date Stop Date Notes Carvedilol 25 MG TAKE 1 TABLET BY HERIBERTO TH TWICE DAILY Orally Twice a day PARoxetine HCl 30 MG TAKE 1 TABLET BY MO UTH EVERY DAY Oral Once a day amLODIPine [...] Notes Dysthymic disorder has gotten worse sin ce surgery Annual physical exam labs reviewed and d iscussed with patient Essential hypertension doing well on med s, will continue current regiment Lesion of breast referral to dr angel Mixed hyperlipidemia stable, will contin ue current regiment Colon cancer screening guaiac negative Depression screening negative screen Pending Test Test Name Order Date MAMMOGRAM DIGITAL BILATERAL DIAGNO 11/25 US BREAST LEFT 11/25/2024 Referrals Referral Date Details 11/25/2024 11/25/2024, LESION O F BREAST, Nitesh Jeffersonkarma Next Appt Details Follow Up: 3 Months, Reason: Provider Name:Arnulfo castellonr, 02/23/2025 10:45:00 AM, [address] [place] [address], [address] [place] [address], [phone], Provider Name:Arnulfo crowley, 05/19/2025 07:15:00 AM, [address] [place] [address], [address], [phone], Provider Name:Arnulfo crowley, 05/26/2025 10:45:00 AM, [address] [place] [address], [address] [place] [address], [phone], Provider Name:Arnulfo crowley, 11/23/2025 08:15:00 AM, [address] [place] [address], [address] [place] [address], [phone], Provider Name:Arnulfo crowley, 11/30/2025 11:00:00 AM, [address] [place] [address], [address], [phone], Progress Notes * Renata FULTON MDOB:[birth year] (74 yo F)Acc No.[id number]:11/25/2024 Progress Notes Patient:?Renata FULTON Provider:?Arnulfo Villalba MD :1950???Age:74 Y???Sex:Female D ate:11/25/2024 Address:[address] [place], [place] [phone] Subjective: * Chief Complaints: * ???1. Annual. [...] mg/dL ?Urine Blood Negative Negative - ?Specific [place] - Urine 1.010 1.005-1.025 - ?Urine Protein [...] mg/dL ?Urine Blood Negative Negative - ?Specific [place] - Urine 1.010 1.005-1.025 - ?Urine Protein [...] Casts Urine 0-2 0-2 - /LPF ???Lab:Comprehensive [place]. P nilsa Fast (Order Date - 11/18/2024) [...] E78.2???6.?Colon cancer screening - Z12.11???7.?Depression screening - Z13.31???8.?Unspecified lump in axillary tail of the left breast - N63.32??? Plan: * Treatment: 2.?Dysthymic disorder? Continue busPIRone [...] regiment?? 4.?Lesion of breast?Imaging: MAMMOGRAM DIGITAL BILATERAL DIAGNO ?Imaging: US BREAST LEFT Notes: referral to dr angel? Referral To:Nitesh [...] Neg Notes: guaiac negative??7.?Depression screening? Notes: negative screen??8.?Unspecified lump in axillary tail of the left breast?Imaging: MAMMOGRAM DIGITAL BILATERAL DIAGNO ?Imaging: US BREAST LEFT * Procedure Codes:?77051 TEST FOR BLOOD, FECES * Preventive Medicine:? [...] Provider:?Arnulfo Villalba MD Date:?0 11/25/2024 Generated for Jajai adriana/Cole/eTransmitting on:?11/29/2024 11:09 AM EST History and Physical Notes * HPI [...]
--- OUTSIDE RECORDS SUMMARY | 2024-11-29 11:10 | XMS_ITS ---
Author Organization Arnulfo Villalba MD Address [address] [place], [place] [phone] Care Team Providers Care Cartridge Loader Name Role Phone Arnulfo Villalba Primary Care Provider Results Component Value Reference Range Notes Complete Blood Count Auto Di ff Reviewed date:11/18/2024 01:38:30 PM Interpretation: Performing Lab:[facility], [address] [place] [phone] Notes/Report: White Blood Count 6.4 4.8-10.8 X10*3/uL [...] NRBC Abs Auto 0.000 0.0-0.012 X10*3/uL Comprehensive [place]. Panel Fa st Reviewed date:11/18/2024 01:39:06 PM Interpretation: Performing Lab:[facility], [address] [place] [phone] Notes/Report: Sodium 139 135-145 mmol/L Potassium 3.7 [...] Panel Reviewed date:11/18/2024 12:34:27 PM Interpretation: Performing Lab:[address] [phone] Notes/Report: Triglycerides 87 <150 mg/dL Desirable Triglyceride: [...] t Reviewed date:11/18/2024 01:38:46 PM Interpretation: Performing Lab:[facility], [address] [place] [phone] Notes/Report: [id number] Urine, Clean Catch Color Urine Dark Yellow Appearance Urine Cloudy PH 7.0 5.0-9.0 Glucose Urine UA Negative Negative mg/dL Urine Blood Negative Negative Specific [place] - Urine 1.010 1.005-1.025 Urine Protein Trace [...] Location Date Provider Diagnosis Arnulfo Villalba MD [address] [place] [address] [address] [place], [place] [phone] 11/18/2024 Arnulfo Villalba Blood tests for routine [...] Provider Name:Arnulfo Pritchett ier, 02/23/2025 10:45:00 AM, [address], Suite [facility], [place], [phone], Provider Name:Arnulfo Pritchett ier, 05/19/2025 07:15:00 AM, [address] [facility], Suite [facility], [place], [phone], Provider Name:Arnlufo Pritchett ier, 05/26/2025 10:45:00 AM, [address], Suite [facility], [place], [place], [phone], Provider Name:Arnulfo Pritchett ier, 11/23/2025 08:15:00 AM, [address] [facility], Suite [facility], [place], [place], [phone], Provider Name:Arnulfo Pritchett ier, 11/30/2025 11:00:00 AM, [address] [facility] [address], [address], [place], [phone], Progress Notes * Renata FULTON MDOB:[birth year] (74 yo F)Acc No.[id number]:11/18/2024 Progress Note Patient:?Renata FULTON M Provider:?Arnulfo Villalba MD :1950???Age:74 Y???Sex:Female D ate:11/18/2024 Address:[address] [place] [phone] Subjective: * Chief Complaints: * ???1. Fasting labs. * Medical History:? Objective: * Vitals:? Assessment: * Assessment: 1.?Blood tests for routine g eneral physical examination - Z00.00 (Primary)???2.?Essential hypertension - I10???3.?Mixed hyperlipidemia - E78.2???4.?Lupus - M32.9???5.?Hypomagnesemia - E83.42??? Plan: * Treatment: 2.?Essential hypertension?LAB: Complete Blood Count Auto Diff (Collection Date & Time - 11/18/2024 07:15 AM) ?LAB: Comprehensive [place]. Panel Fast (Collection Date & Time - 11/18/2024 07:15 AM) ?LAB: Lipid Panel (Collection Date & Time - 11/18/2024 07:15 AM) ?LAB: UA ClnCatch+Micro w/rflx Cult (Collection Date & Time - 11/18/2024 07:15 AM) 3.?Mixed hyperlipidemia?LAB: Complete Blood Count Auto Diff (Collection Date & Time - 11/18/2024 07:15 AM) ?LAB: Comprehensive [place]. Panel Fast (Collection Date & Time - 11/18/2024 07:15 AM) ?LAB: Lipid Panel (Collection Date & Time - 11/18/2024 07:15 AM) ?LAB: UA ClnCatch+Micro w/rflx Cult (Collection Date & Time - 11/18/2024 07:15 AM) 4.?Lupus?LAB: Complete Blood Count Auto Diff (Collection Date & Time - 11/18/2024 07:15 AM) ?LAB: Comprehensive [place]. Panel Fast (Collection Date & Time - 11/18/2024 07:15 AM) ?LAB: Lipid Panel (Collection Date & Time - 11/18/2024 07:15 AM) ?LAB: UA ClnCatch+Micro w/rflx Cult (Collection Date & Time - 11/18/2024 07:15 AM) 5.?Hypomagnesemia?LAB: Complete Blood Count Auto Diff (Collection Date & Time - 11/18/2024 07:15 AM) ?LAB: Comprehensive [place]. Panel Fast (Collection Date & Time - 11/18/2024 07:15 AM) ?LAB: Lipid Panel (Collection Date & Time - 11/18/2024 07:15 AM) ?LAB: UA ClnCatch+Micro w/rflx Cult (Collection Date & Time - 11/18/2024 07:15 AM) * Procedure Codes:?01443 VENIP UNCT, ROUTINE* * * The named appointment provid er may or may not be the originator of this progress note, and it is not deemed complete until electronically signed by the appointment provider. Sign off status: Pending * Provider:?Arnulfo Villalba MD Date:?0 11/18/2024 Generated for Rosi wright/Cole/Batoolitting on:?11/29/2024 11:09 AM EST
== END 2024-11-29 09:01 | disposition home or self-care (01) ==
LOC: HO.LNP 09:00
PROVIDERS: Visit Provider Internal Medicine
DX: N39.0 Urinary tract infection, site not specified (principal)
CPT/HCPCS: 81001

== ENCOUNTER 2024-12-04 14:40 | Inpatient (IN) | payer MEDICARE, SELFPAY ==
--- NOTE | ~2024-12-04 | CT_ITS ---
CLINICAL HISTORY: abd pain, hematemesis, melena CT abdomen and pelvis with and without contrast Comparison: CT/ND/SR - CT ABDOMEN PELVIS WO IV CON - 06/04/24 09:27 EDT Findings: The visualized portions of the lungs are normal in appearance. Large hiatal hernia. The liver is normal in size without suspicious focal hepatic lesions. No intrahepatic or extrahepatic ductal dilatation is seen. The hepatic and portal veins are patent. Cholecystectomy. Pancreas, spleen and adrenals are normal in appearance. No suspicious focal lesion of the kidneys. No hydronephrosis or calculi. The abdominal aorta demonstrates no evidence of aneurysmal dilatation or dissection. Atherosclerosis calcification of the abdominal aorta and at the origin of the branches . Colonic diverticulosis with bowel wall thickening of the ascending, descending and sigmoid colon. No evidence of bowel obstruction. Appendix is normal. Calcified uterine fibroid. No intraperitoneal free air or fluid is visualized. No pathologic lymphadenopathy is seen. Degenerative changes of the spine. IMPRESSION: No CT evidence of active GI bleed. Colonic diverticulosis with bowel wall thickening of the colon concerning for acute diverticulitis. Correlation with colonoscopy findings as indicated. Additional findings as above. This document has been electronically signed by: Devin Romero MD on 12/04/2024 20:26:48
[2024-12-04 15:04] VITALS: BP 120/70; PULSE 104; RESP 16; TEMP 36.4; O2SAT 96; BMI 25.7
--- NOTE | 2024-12-04 15:08 | ED.FEMALEGU ---
HPI - Female Genitourinary General Chief complaint: Abdominal Pain Stated complaint: uti Time Seen by Provider: 12/04/24 16:55 Source: patient Mode of arrival: ambulatory Limitations: no limitations History of Present Illness ED Provider: ranjith zeng np HPI Narrative: Patient is a 74-year-old female with past medical history of asthma, hyperlipidemia, hypertension, paraesophageal hernia s/p repair 09/13/2024 laparoscopic lysis of adhesions and gastropexy, GERD, anxiety, mood disorder, lupus, anemia, IBS, CVA, vertigo who presents emergency department for evaluation. She reports that she has been experiencing lower abdominal pain nausea, difficulty urinating over the past few weeks. She states that she was seen by her primary care doctor, she was given an antibiotic for urinary tract infection does not recall the name but she reports that she completed it 2 days ago. She reports that today the pain in her lower abdomen had worsened. While in the waiting room she states that she vomited a full emesis bag of dark bloody emesis, she does admit that she has recently been experiencing black stools as well. She denies any use of OTC medications such as Pepto-Bismol. She denies recent sick contacts, fevers, chills, chest pain, shortness of breath, back pain, numbness or tingling of the extremities. Related Data Home Medications ?Medication ?Instructions ?Recorded ?Confirmed fluticasone propionate 50 1 spray intranasal DAILY PRN 08/08/20 12/05/24 mcg/actuation nasal Allergic Symptoms spray,suspension albuterol sulfate 90 mcg/actuation 2 puff inhalation Q6H PRN 10/22/21 12/05/24 aerosol inhaler (Ventolin HFA) Respiratory Distress acetaminophen 500 mg tablet 1,000 mg PO Q6H PRN Pain 07/24/22 12/05/24 (Tylenol Extra Strength) aspirin 81 mg tablet,delayed 81 mg PO DAILY 07/24/22 12/05/24 release (Adult Low Dose Aspirin) carvedilol 25 mg tablet 25 mg PO BID 10/24/22 12/05/24 lisinopril 20 mg tablet 20 mg PO DAILY 10/24/22 12/05/24 magnesium chloride 71.5 mg 1 tab PO DAILY 10/24/22 12/05/24 (magnesium chloride) tablet,delayed release (Slow-Mag) alendronate 70 mg tablet 70 mg PO TH@0900 06/26/24 12/05/24 chlordiazepoxide HCl 5 mg capsule 5 mg PO TID PRN anxiety 09/13/24 12/05/24 omeprazole 40 mg capsule,delayed 40 mg PO DAILY@0630 12/05/24 12/05/24 release Previous Rx's ?Medication ?Instructions ?Recorded atorvastatin 40 mg tablet 40 mg PO BEDTIME #30 tabs 05/27/21 amlodipine 5 mg tablet 5 mg PO DAILY #30 tabs 10/26/22 buspirone 10 mg tablet 10 mg PO BID #180 tabs 04/11/24 lorazepam 0.5 mg tablet 0.5 mg PO BID PRN anxiety #20 tabs 11/10/24 paroxetine HCl 40 mg tablet 40 mg PO BEDTIME 30 days #30 tabs 11/28/24 Allergies Allergy/AdvReac Type Severity Reaction Status Date / Time Codeine Sulfate Allergy Severe Anaphylaxis Verified 12/04/24 15:07 Antihistamine Allergy Intermediate Shakiness Verified 12/04/24 15:07 egg Allergy Intermediate Heartburn Verified 12/04/24 15:07 Sulfa (Sulfonamide Allergy Intermediate RASH Verified 12/04/24 15:07 Antibiotics) [SULFA (SULFONAMIDE ANTIBIOTICS)] diphenhydramine Allergy sweats, Verified 12/04/24 15:07 [From Benadryl] palpitation cefuroxime AdvReac delerium Verified 12/04/24 15:07 ,paranoia Review of Systems Review of Systems: Yes all other systems are reviewed and are negative PMFSH Past Medical History Attestation statement: The following information was validated with the patient. 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 Headache Sinusitis Asthma Generalized anxiety disorder Mood disorder, drug-induced Diaphragmatic hernia Panic disorder [episodic paroxysmal anxiety] Dysthymia Hypertension Diverticulitis CVA (cerebral vascular accident) Vertigo Tubular adenoma of colon Positive colorectal cancer screening using Cologuard test Irritable bowel syndrome with both constipation and diarrhea GERD (gastroesophageal reflux disease) Depression with anxiety HTN (hypertension), benign Lupus Surgical History S/P repair of paraesophageal hernia H/O wrist surgery Hx of colonoscopy History of cholecystectomy Family History Family History Father CAD (coronary artery disease) Maternal Grandmother HTN (hypertension), benign Father No problems noted. 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 No acute distress.?Normal affect. Eyes: Pupils equal, round and reactive to light.? ENT: Pharynx normal.?? Neck: Normal inspection.? Neck supple.?? CVS: Heart sounds normal. Normal heart rate and rhythm.? Pulses normal.?? Respiratory: No respiratory distress.? Lung sounds clear to auscultation bilaterally?? Abdomen: Soft with diffuse lower abdominal tenderness upon palpation. No rebound tenderness at McBurney's point. No rigidity or guarding. Normoactive bowel sounds..?? Skin: Skin warm and dry.? Normal skin color.? Extremities: No lower extremity edema.? No calf ttp? Neuro: Moves all extremities spontaneously. Sensation intact bilaterally. No focal neuro deficits. Ambulates with normal steady gait. Course Course Course Narrative: RME: 74-year-old female recent UTI presents to ED for lower abdominal pain with nausea and trouble urinating. Patient recently being treated for UTI. Repeat labs UA ordered. 4:15pm: Maverick crespo called me to triage and patient was vomiting dark black emesis/hemetemesis. Reevaluation(s) Reevaluation #1: Occult stool is negative. Normal PT/INR. CT revealing findings concerning for acute diverticulitis. She had a 2nd episode of black emesis around the time of her CT scan being obtained but no further episodes. She has some mild nausea at this time, lower abdominal pain persists. Trial water to see if she is able to tolerate oral intake, we will provide analgesia at this time, and repeat H&H to assess stability it has been 4 hours since her most recent; Sotero-blachford bleeding scale of 2. Time: 21:16 Reevaluation #2: H&H has dropped to 9.4/28.6 persistent nausea not able to tolerate oral intake. Patient receiving Protonix IV, metronidazole and Levaquin IV. Planning for admission to medicine service Medications Administered Generic Name Dose Route Start Last Admin Trade Name Freq PRN Reason Stop Dose Admin Chlordiazepoxide HCl 5 mg 12/05/24 01:00 12/05/24 04:22 Chlordiazepoxide Hcl 5 Mg Capsule PO 5 mg QID PRN Administration anxiety/restlessness Lactated Ringer's 1,000 mls @ 100 mls/hr 12/05/24 01:00 12/05/24 13:12 Lr IVCONT 100 mls/hr .Q10H RAMONA Administration Metronidazole 500 mg in 100 mls @ 100 mls/hr 12/05/24 08:00 12/05/24 09:45 Flagyl IV Infused Q8H RAMONA Infusion Lorazepam 0.5 mg 12/05/24 01:00 12/05/24 01:33 Lorazepam 0.5 Mg Tablet PO 0.5 mg Q8H PRN Administration anxiety/restlessness Melatonin 6 mg 12/05/24 01:00 12/05/24 01:33 Melatonin 3 Mg Tablet PO 6 mg BEDTIME PRN Administration Insomnia Ondansetron HCl 4 mg 12/05/24 01:00 12/05/24 11:08 Ondansetron Hcl 4 Mg/2 Ml Vial IVPUSH 4 mg Q8H PRN Administration Nausea and Vomiting Pantoprazole Sodium 40 mg 12/05/24 06:30 12/05/24 06:34 Pantoprazole Sodium 40 Mg/10 Ml Vial IVPUSH 40 mg BID@0630,1630 RAMONA Administration Sodium Chloride 3 ml 12/05/24 08:00 12/05/24 07:56 0.9 % Sodium Chloride Flush 3 Ml Syringe IVFLUSH Not Given [facility] Discontinued Medications Generic Name Dose Route Start Last Admin Trade Name Freq PRN Reason Stop Dose Admin Sodium Chloride 1,000 mls @ 999 mls/hr 12/04/24 17:30 12/05/24 01:27 Ns IV 12/04/24 18:30 Infused .Q1H1M RAMONA Infusion Metronidazole 500 mg in 100 mls @ 100 mls/hr 12/04/24 22:41 12/05/24 00:41 Flagyl IV 12/04/24 23:40 Infused ONCE ONE Infusion Levofloxacin 750 mg in 150 mls @ 100 mls/hr 12/04/24 22:41 12/05/24 01:27 Levaquin IV 12/05/24 00:10 Infused ONCE ONE Infusion Iohexol 100 ml 12/04/24 18:01 12/04/24 18:02 Iohexol 350 Mg/Ml 100 Ml Infus..Btl IV 12/04/24 18:02 80 ml ONCE ONE Administration Morphine Sulfate 2 mg 12/04/24 21:17 12/04/24 21:41 Morphine Sulfate 2 Mg/Ml Cartridge IVPUSH 12/04/24 21:18 2 mg ONCE ONE Administration Protocol Ondansetron HCl 4 mg 12/04/24 17:24 12/04/24 17:30 Ondansetron Hcl 4 Mg/2 Ml Vial IVPUSH 12/04/24 17:25 4 mg ONCE ONE Administration Ondansetron HCl 4 mg 12/04/24 20:07 12/04/24 20:13 Ondansetron Hcl 4 Mg/2 Ml Vial IVPUSH 12/04/24 20:08 4 mg ONCE ONE Administration Pantoprazole Sodium 80 mg 12/04/24 22:37 12/04/24 23:41 Pantoprazole Sodium 40 Mg/10 Ml Vial IVPUSH 02/02/25 22:38 80 mg ONCE ONE Administration Medical Decision Making Medical Decision Making [facility] Narrative: Patient is a 74-year-old female with past medical history of asthma, hyperlipidemia, hypertension, paraesophageal hernia s/p repair 09/13/2024 laparoscopic lysis of adhesions and gastropexy, GERD, anxiety, mood disorder, lupus, anemia, IBS, CVA, vertigo who presents emergency department for evaluation of abdominal pain with melena hand reported large volume coffee-ground emesis in the waiting room on arrival. As per HPI she has been experiencing lower abdominal pain with nausea for the past few weeks, was treated for urinary tract infection abdominal pain has persisted. At the time my evaluation she has diffuse lower abdominal tenderness upon palpation without distention, no rigidity, no rebound tenderness or guarding, no percussive tenderness. She arrived mildly tachycardic but no hypotension. She is afebrile no tachycardia or tachypnea. Denies associated acid reflux, no tenderness upon palpation over the epigastrium or left upper quadrant the given her past surgical history presenting symptoms, she may have gastritis, PUD. No rebound tenderness at McBurney's point, rigidity, guarding to suggest acute appendicitis. Obtaining CT of the abdomen and pelvis with GI bleed protocol, concern for diverticulitis, GI bleed, no appreciable hernia at this time to suggest strangulation or incarceration, given history of prior surgeries, bowel obstruction is on the differential. Reviewed serum labs obtained prior to my assumption of care initial CBC is without leukocytosis, initial H and H of 10.3/30.8 prior to vomiting full emesis bag of hematemesis, repeat H&H to be obtained in addition to type and screen, no thrombocytopenia. Coags are pending. No electrolyte derangement. No CHARLENE. LFTs within normal range. Urinalysis with 2+ leukocyte esterase urine WBCs squamous epithelial cells but no urine bacteria seen; similar urinalysis results on 11/18/2024 though this showed positive nitrates additionally, and urine culture with mixed urogenital tank. Reports no further difficulties with urination, suspect urogenital contamination at this time rather than urinary tract infection. Differential Diagnosis Differential Diagnoses: The differential diagnosis associated with the presentation includes (See narrative above) Admission/Observation Consideration of admission/observation: Escalation of care including admission/observation considered (See narrative above ) Lab Data [facility] Lab Attestation statement: I reviewed the patient's lab results. 12/05/24 04:32 12/05/24 04:32 Labs: Lab Results 12/04/24 12/04/24 12/04/24 Range/Units 16:15 17:21 20:19 WBC 6.9 (4.8-10.8) X10*3/uL RBC 3.74 L D (4.20-5.50) X10*6/uL Hgb 10.3 L 10.3 L (12.0-16.0) g/dl Hct 30.8 L D 31.1 L (37.0-47.0) % MCV 82.4 (80.0-98.0) fL MCH 27.5 (27.0-33.0) pg MCHC 33.4 (31.0-35.0) g/dl RDW 15.0 (11.0-16.0) % Plt Count 330 (160-400) X10*3/uL MPV 8.7 L (9.4-12.3) fL Immature Gran % (Auto) 0.3 (0.0-0.4) % Neut % (Auto) 72.0 (45-73) % Lymph % (Auto) 16.6 L (20-40) % [place] % (Auto) 8.6 (2-11) % Eos % (Auto) 1.6 (0-4) % Baso % (Auto) 0.9 (0-2) % Lymph # (Auto) 1.1 L (1.2-4.9) X10*3/uL [place] # (Auto) 0.6 (0.1-1.2) X10*3/uL Eos # (Auto) 0.1 (0.0-0.4) X10*3/uL Baso # (Auto) 0.1 (0.0-0.2) X10*3/uL Abs Immat Gran (auto) 0.02 (0.00-0.03) X10*3/uL Absolute Neuts (auto) 4.9 (2.0-8.3) x10*3/uL Absolute Nucleated RBC 0.000 (0.0-0.012) X10*3/uL Nucleated RBC % (auto) 0.0 (0.0-0.2) /100WBC PT 11.4 (10.9-12.4) SEC INR 1.0 (0.9-1.1) Sodium 135 (135-145) mmol/L Potassium 3.7 (3.3-5.1) mmol/L Chloride 102 (96-108) mmol/L Carbon Dioxide 23 (22-29) mmol/L Anion Gap 14 (12-20) BUN 17 H (9-16) mg/dL Creatinine 0.76 (0.5-1.4) mg/dL Estim Creat Clear Calc 51.6 Estimated GFR > 60 Random Glucose 103 (60-115) mg/dL Calcium 9.3 (8.4-10.2) mg/dL Total Bilirubin 0.4 (0.0-1.0) mg/dL AST 21 (5-31) U/L ALT 8 (0-31) U/L Alkaline Phosphatase 57 (39-117) U/L Total Protein 6.6 (6.5-8.0) g/dL Albumin 3.8 (3.5-5.0) g/dL Urine Color Yellow Urine Appearance Cloudy Urine pH 5.5 (5.0-9.0) Ur Specific [place] 1.020 (1.005-1.025) Urine Protein Trace (Neg-Trace) mg/dL Urine Glucose (UA) Negative (Negative) mg/dL Urine Ketones 40 (Negative) mg/dL Urine Blood Negative (Negative) Urine Nitrite Negative (Negative) Ur Leukocyte Esterase Moderate (2+) H (Negative) Urine RBC 0-2 (0-2) /HPF Urine WBC 21-50 H (0-5) /HPF Ur Squamous Epith Cells 11-20 (0-2) /HPF Urine Bacteria None Seen (None Seen) Hyaline Casts 0-2 (0-2) /LPF Stool Occult Blood NEGATIVE (NEGATIVE) Influenza Type A (PCR) NEGATIVE (Negative) Influenza Type B (PCR) NEGATIVE (Negative) RSV RNA Qual (PCR) NEGATIVE (Negative) SARS-CoV-2 RNA (RT-PCR) NEGATIVE (Negative) Blood Type B Positive Antibody Screen NEGATIVE 12/04/24 Range/Units 21:47 WBC 6.8 (4.8-10.8) X10*3/uL RBC 3.43 L (4.20-5.50) X10*6/uL Hgb 9.4 L (12.0-16.0) g/dl Hct 28.6 L (37.0-47.0) % MCV 83.4 (80.0-98.0) fL MCH 27.4 (27.0-33.0) pg MCHC 32.9 (31.0-35.0) g/dl RDW 15.0 (11.0-16.0) % Plt Count 307 (160-400) X10*3/uL MPV 9.1 L (9.4-12.3) fL Immature Gran % (Auto) 0.3 (0.0-0.4) % Neut % (Auto) 66.1 (45-73) % Lymph % (Auto) 23.7 (20-40) % [place] % (Auto) 8.4 (2-11) % Eos % (Auto) 0.9 (0-4) % Baso % (Auto) 0.6 (0-2) % Lymph # (Auto) 1.6 (1.2-4.9) X10*3/uL [place] # (Auto) 0.6 (0.1-1.2) X10*3/uL Eos # (Auto) 0.1 (0.0-0.4) X10*3/uL Baso # (Auto) 0.0 (0.0-0.2) X10*3/uL Abs Immat Gran (auto) 0.02 (0.00-0.03) X10*3/uL Absolute Neuts (auto) 4.5 (2.0-8.3) x10*3/uL Absolute Nucleated RBC 0.000 (0.0-0.012) X10*3/uL Nucleated RBC % (auto) 0.0 (0.0-0.2) /100WBC PT (10.9-12.4) SEC INR (0.9-1.1) Sodium (135-145) mmol/L Potassium (3.3-5.1) mmol/L Chloride (96-108) mmol/L Carbon Dioxide (22-29) mmol/L Anion Gap (12-20) BUN (9-16) mg/dL Creatinine (0.5-1.4) mg/dL Estim Creat Clear Calc Estimated GFR Random Glucose (60-115) mg/dL Calcium (8.4-10.2) mg/dL Total Bilirubin (0.0-1.0) mg/dL AST (5-31) U/L ALT (0-31) U/L Alkaline Phosphatase (39-117) U/L Total Protein (6.5-8.0) g/dL Albumin (3.5-5.0) g/dL Urine Color Urine Appearance Urine pH (5.0-9.0) Ur Specific [place] (1.005-1.025) Urine Protein (Neg-Trace) mg/dL Urine Glucose (UA) (Negative) mg/dL Urine Ketones (Negative) mg/dL Urine Blood (Negative) Urine Nitrite (Negative) Ur Leukocyte Esterase (Negative) Urine RBC (0-2) /HPF Urine WBC (0-5) /HPF Ur Squamous Epith Cells (0-2) /HPF Urine Bacteria (None Seen) Hyaline Casts (0-2) /LPF Stool Occult Blood (NEGATIVE) Influenza Type A (PCR) (Negative) Influenza Type B (PCR) (Negative) RSV RNA Qual (PCR) (Negative) SARS-CoV-2 RNA (RT-PCR) (Negative) Blood Type Antibody Screen Radiology Impression Discussion of test interpretation with radiology: I have reviewed the radiologist's reading. Radiologist Impression: CT abdomen and pelvis with and without contrast Comparison: CT/LA/SR - CT ABDOMEN PELVIS WO IV CON - 06/04/24 09:27 EDT Findings: The visualized portions of the lungs are normal in appearance. Large hiatal hernia. The liver is normal in size without suspicious focal hepatic lesions. No intrahepatic or extrahepatic ductal dilatation is seen. The hepatic and portal veins are patent. Cholecystectomy. Pancreas, spleen and adrenals are normal in appearance. No suspicious focal lesion of the kidneys. No hydronephrosis or calculi. The abdominal aorta demonstrates no evidence of aneurysmal dilatation or dissection. Atherosclerosis calcification of the abdominal aorta and at the origin of the branches . Colonic diverticulosis with bowel wall thickening of the ascending, descending and sigmoid colon. No evidence of bowel obstruction. Appendix is normal. Calcified uterine fibroid. No intraperitoneal free air or fluid is visualized. No pathologic lymphadenopathy is seen. Degenerative changes of the spine. IMPRESSION: No CT evidence of active GI bleed. Colonic diverticulosis with bowel wall thickening of the colon concerning for acute diverticulitis. Correlation with colonoscopy findings as indicated. External Record Review External record reviewed: Outpatient record Chronic Conditions Patient?s care impacted by: Other (See narrative above) Critical Care Time Critical Care Time Critical Care Time: Yes Total Critical Care Time: 35 Attestation: I personally attest to this critical care time spent taking care of the patient exclusive of all other billable procedures was approximately 35 minutes including initial evaluation of patient, ordering tests, morphine IV and re-assessment, EKG interpretation, medical consultation, documentation, re-evaluation. Discharge Plan Discharge Clinical Impression: Acute diverticulitis, Acute on chronic anemia Patient Disposition: Admitted As Inpatient Interventions: Admission Worksheet (ED) Last Done: 12/05/24 09:12 Discharge Date/Time: 12/05/24 10:37
[2024-12-04 16:20] LABS: MANUAL DIFF FLAG NO
[2024-12-04 16:22] LABS: Basophils Absolute Auto 0.1 X10*3/uL (0.0-0.2); Basophils Percent Auto 0.9 % (0-2); Eosinophils Absolute Auto 0.1 X10*3/uL (0.0-0.4); Eosinophils Percent Auto 1.6 % (0-4); Hematocrit 30.8 % (37.0-47.0); Hemoglobin 10.3 g/dl (12.0-16.0); Imm Gran Abs Auto 0.02 X10*3/uL (0.00-0.03); Imm Gran Pct Auto 0.3 % (0.0-0.4); Lymphocytes Absolute Auto 1.1 X10*3/uL (1.2-4.9); Lymphocytes Percent Auto 16.6 % (20-40); Mean Corpuscular HGB Conc 33.4 g/dl (31.0-35.0); Mean Corpuscular Hemoglobin 27.5 pg (27.0-33.0); Mean Corpuscular Volume 82.4 fL (80.0-98.0); Mean Platelet Volume 8.7 fL (9.4-12.3); Monocytes Absolute Auto 0.6 X10*3/uL (0.1-1.2); Monocytes Percent Auto 8.6 % (2-11); Neutrophils Absolute Auto 4.9 x10*3/uL (2.0-8.3); Platelet Count 330 X10*3/uL (160-400); Red Blood Count 3.74 X10*6/uL (4.20-5.50); White Blood Count 6.9 X10*3/uL (4.8-10.8)
[2024-12-04 16:33] LABS: Appearance Urine Cloudy; Color Urine Yellow; Glucose Urine UA Negative (Negative); Leukocyte Esterase Urine Moderate (2+) (Negative); Nitrite Urine Negative (Negative); PH 5.5 (5.0-9.0); UMIC TRIGGER UACC YES; Urine Blood Negative (Negative); Urine Ketones 40 mg/dL (Negative); Urine Protein Trace mg/dL (Neg-Trace)
[2024-12-04 16:38] LABS: Bacteria Urine None Seen (None Seen); Hyaline Casts Urine 0-2 /LPF (0-2); RBC Urine 0-2 /HPF (0-2); UACC Culture Trigger YES; WBC Urine 21-50 /HPF (0-5)
[2024-12-04 17:02] LABS: Alanine Aminotransferase 8 U/L (0-31); Albumin Level 3.8 g/dL (3.5-5.0); Anion Gap 14 (12-20); Aspartate Amino Transferase 21 U/L (5-31); Bilirubin Total 0.4 mg/dL (0.0-1.0); Blood Urea Nitrogen 17 mg/dL (9-16); Calcium 9.3 mg/dL (8.4-10.2); Carbon Dioxide 23 mmol/L (22-29); Chloride 102 mmol/L (96-108); Creatinine Clr Calc Pharmacy 51.6; Estimated Glomerular Filt Rate > 60; Glucose Random 103 mg/dL (60-115); Potassium 3.7 mmol/L (3.3-5.1); Sodium 135 mmol/L (135-145); Total Protein 6.6 g/dL (6.5-8.0)
[2024-12-04 17:23] LABS: Alkaline Phosphatase 57 U/L (39-117)
[2024-12-04 17:29] VITALS: BP 117/63; PULSE 86; RESP 16; O2SAT 97
[2024-12-04] MEDS: 0.9 % Sodium Chloride 1,000 ML 999 ML IV (17:30)
[2024-12-04] MEDS: ondansetron HCL 4 MG/2 ML VIAL IVPUSH ×2 (17:30→20:13)
[2024-12-04 17:51] LABS: Hematocrit 31.1 % (37.0-47.0); Hemoglobin 10.3 g/dl (12.0-16.0)
[2024-12-04] MEDS: iohexoL 350 MG/ML 100 ML INFUS..BTL IV (18:02)
[2024-12-04 18:05] LABS: Prothrombin Time 11.4 SEC (10.9-12.4)
[2024-12-04 18:06] LABS: OBS Int Ctl Valid YES; OBS1 NEGATIVE (NEGATIVE)
[2024-12-04 20:01] VITALS: BP 107/49; PULSE 85; RESP 16; TEMP 36.5; O2SAT 95
[2024-12-04 21:25] LABS: Influenza A PCR NEGATIVE (Negative); Influenza B PCR NEGATIVE (Negative); Resp Syncy Virus RNA Qual PCR NEGATIVE (Negative); SARS COV2 PCR INHOUSE NEGATIVE (Negative)
[2024-12-04] MEDS: Morphine Sulfate 2 MG/ML CARTRIDGE IVPUSH (21:41)
[2024-12-04 21:53] LABS: MANUAL DIFF FLAG NO
[2024-12-04 22:33] LABS: Basophils Percent Auto 0.6 % (0-2); Eosinophils Absolute Auto 0.1 X10*3/uL (0.0-0.4); Eosinophils Percent Auto 0.9 % (0-4); Hematocrit 28.6 % (37.0-47.0); Hemoglobin 9.4 g/dl (12.0-16.0); Imm Gran Abs Auto 0.02 X10*3/uL (0.00-0.03); Imm Gran Pct Auto 0.3 % (0.0-0.4); Lymphocytes Absolute Auto 1.6 X10*3/uL (1.2-4.9); Lymphocytes Percent Auto 23.7 % (20-40); Mean Corpuscular HGB Conc 32.9 g/dl (31.0-35.0); Mean Corpuscular Hemoglobin 27.4 pg (27.0-33.0); Mean Corpuscular Volume 83.4 fL (80.0-98.0); Mean Platelet Volume 9.1 fL (9.4-12.3); Monocytes Absolute Auto 0.6 X10*3/uL (0.1-1.2); Monocytes Percent Auto 8.4 % (2-11); Neutrophils Absolute Auto 4.5 x10*3/uL (2.0-8.3); Neutrophils Percent Auto 66.1 % (45-73); Platelet Count 307 X10*3/uL (160-400); Red Blood Count 3.43 X10*6/uL (4.20-5.50); White Blood Count 6.8 X10*3/uL (4.8-10.8)
--- NOTE | 2024-12-04 23:38 | P.HPHOSP_ITS ---
History of Present Illness Date of Service: 12/04/24 Chief Complaint: Abdominal pain A 74 years old lady with PMH of Asthma, HLD, HTN, GERD, anxiery, Lupus, CVA, vertigo, hx adhesions post lysis among others presenting for abdominal pain and urine frequency. The patient was treated for UTI recently finishing antibiotics couple days ago. reporting lower abdominal pain with chills, nausea but no fever or diarrhea. No chest pain, palpitations, diarrhea. She had largy coffee ground emesis in waiting room and 2 more incidents in ED. CT GI Bleed protocol was done with no evidence of acute bleeding but showed evidence of diverticulitis. Started on IV antibiotics, fluids and admitted for further work up and management. 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 Mother Hypertension Asthma COPD (chronic obstructive pulmonary disease) Surgical History S/P repair of paraesophageal hernia H/O wrist surgery Hx of colonoscopy History of cholecystectomy Social History Household Members: Family Household Members Other:: niece lives upstairs Housing: House Are you a primary field care advocate to a significant other at home: No Do you presently have visiting nurse or other home services: No Alcohol intake: never Patient Tobacco Use Status: Former Tobacco user Tobacco use type: Cigarette Years Smoked: quit greater than 10 years ago Second Hand Smoke Exposure: No Advance Directives: Yes Advance Directives on File: Yes Advance Directives Date on File: 04/07/23 service: No Current occupational status: retired 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, 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 Meds Allergies Allergy/AdvReac Type Severity Reaction Status Date / Time Codeine Sulfate Allergy Severe Anaphylaxis Verified 12/04/24 15:07 Antihistamine Allergy Intermediate Shakiness Verified 12/04/24 15:07 egg Allergy Intermediate Heartburn Verified 12/04/24 15:07 Sulfa (Sulfonamide Allergy Intermediate RASH Verified 12/04/24 15:07 Antibiotics) [SULFA (SULFONAMIDE ANTIBIOTICS)] diphenhydramine Allergy sweats, Verified 12/04/24 15:07 [From Benadryl] palpitation cefuroxime AdvReac delerium Verified 12/04/24 15:07 ,paranoia Active Medications: Current Medications Metronidazole (Flagyl) 500 mg in 100 mls @ 100 mls/hr IV ONCE ONE Stop: 12/04/24 23:40 Levofloxacin (Levaquin) 750 mg in 150 mls @ 100 mls/hr IV ONCE ONE Stop: 12/05/24 00:10 Home Medications ?Medication ?Instructions ?Recorded ?Confirmed ?Last Taken ?Type fluticasone propionate 50 1 spray intranasal DAILY PRN 08/08/20 11/23/24 09/12/24 History mcg/actuation nasal Allergic Symptoms spray,suspension albuterol sulfate 90 mcg/actuation 2 puff inhalation Q6H PRN 10/22/21 11/23/24 09/12/24 History aerosol inhaler (Ventolin HFA) Respiratory Distress acetaminophen 500 mg tablet 1,000 mg PO Q6H PRN Pain 07/24/22 11/23/24 Unknown History (Tylenol Extra Strength) aspirin 81 mg tablet,delayed 81 mg PO DAILY 07/24/22 11/23/24 09/06/24 History release (Adult Low Dose Aspirin) carvedilol 25 mg tablet 1 tab PO BID 10/24/22 11/23/24 09/13/24 History lisinopril 20 mg tablet 1 tab PO DAILY 10/24/22 11/23/24 09/13/24 History magnesium chloride 71.5 mg 1 tab PO DAILY 10/24/22 11/23/24 06/25/24 History (magnesium chloride) tablet,delayed release (Slow-Mag) alendronate 70 mg tablet 70 mg PO TH@0900 06/26/24 11/23/24 09/09/24 History chlordiazepoxide HCl 5 mg capsule 5 mg PO TID PRN anxiety 09/13/24 11/23/24 Unknown History Physical Exam 2 Vital Signs and Narrative: Vital Signs: Last Vital Signs Temp 97.7 F 12/04/24 20:01 Pulse 85 12/04/24 20:01 Resp 16 12/04/24 20:01 BP 107/49 L 12/04/24 20:01 Pulse Ox 95 12/04/24 20:01 O2 Del Method Room Air 12/04/24 20:01 BMI result Body Mass Index 25.7 Const: Other: Constitutional : interactive, not in distress Cardiovascular : no JVP, no lower extremity edema Respiratory : bilateral chest movement, not in resp distress Gastrointestinal: soft, lax, mild lower abdominal tenderness Skin : Warm, Dry Neurological : Alert & oriented , No focal deficit Results Labs 12/04/24 21:47 12/04/24 16:15 Labs: Laboratory Results - last 24 hr 12/04/24 12/04/24 12/04/24 16:15 17:21 20:19 MCV 82.4 MCH 27.5 MCHC 33.4 RDW 15.0 Plt Count 330 MPV 8.7 L Immature Gran % (Auto) 0.3 Neut % (Auto) 72.0 Lymph % (Auto) 16.6 L [place] % (Auto) 8.6 Eos % (Auto) 1.6 Baso % (Auto) 0.9 Lymph # (Auto) 1.1 L [place] # (Auto) 0.6 Eos # (Auto) 0.1 Baso # (Auto) 0.1 Abs Immat Gran (auto) 0.02 Absolute Neuts (auto) 4.9 Absolute Nucleated RBC 0.000 Nucleated RBC % (auto) 0.0 PT 11.4 INR 1.0 Anion Gap 14 Estim Creat Clear Calc 51.6 Estimated GFR > 60 Random Glucose 103 Calcium 9.3 Total Bilirubin 0.4 AST 21 ALT 8 Alkaline Phosphatase 57 Total Protein 6.6 Albumin 3.8 Urine Color Yellow Urine Appearance Cloudy Urine pH 5.5 Ur Specific [place] 1.020 Urine Protein Trace Urine Glucose (UA) Negative Urine Ketones 40 Urine Blood Negative Urine Nitrite Negative Ur Leukocyte Esterase Moderate (2+) H Urine RBC 0-2 Urine WBC 21-50 H Ur Squamous Epith Cells 11-20 Urine Bacteria None Seen Hyaline Casts 0-2 Stool Occult Blood NEGATIVE Influenza Type A (PCR) NEGATIVE Influenza Type B (PCR) NEGATIVE RSV RNA Qual (PCR) NEGATIVE SARS-CoV-2 RNA (RT-PCR) NEGATIVE Blood Type B Positive Antibody Screen NEGATIVE 12/04/24 21:47 MCV 83.4 MCH 27.4 MCHC 32.9 RDW 15.0 Plt Count 307 MPV 9.1 L Immature Gran % (Auto) 0.3 Neut % (Auto) 66.1 Lymph % (Auto) 23.7 [place] % (Auto) 8.4 Eos % (Auto) 0.9 Baso % (Auto) 0.6 Lymph # (Auto) 1.6 [place] # (Auto) 0.6 Eos # (Auto) 0.1 Baso # (Auto) 0.0 Abs Immat Gran (auto) 0.02 Absolute Neuts (auto) 4.5 Absolute Nucleated RBC 0.000 Nucleated RBC % (auto) 0.0 PT INR Anion Gap Estim Creat Clear Calc Estimated GFR Random Glucose Calcium Total Bilirubin AST ALT Alkaline Phosphatase Total Protein Albumin Urine Color Urine Appearance Urine pH Ur Specific [place] Urine Protein Urine Glucose (UA) Urine Ketones Urine Blood Urine Nitrite Ur Leukocyte Esterase Urine RBC Urine WBC Ur Squamous Epith Cells Urine Bacteria Hyaline Casts Stool Occult Blood Influenza Type A (PCR) Influenza Type B (PCR) RSV RNA Qual (PCR) SARS-CoV-2 RNA (RT-PCR) Blood Type Antibody Screen Assessment and Plan (1) Acute diverticulitis: Status: Acute (2) Acute on chronic anemia: Status: Acute Plan A 74 years old lady with PMH of Asthma, HLD, HTN, GERD, anxiery, Lupus, CVA, vertigo, hx adhesions post lysis among others presenting for abdominal pain and urine frequency. Acute diverticulitis not septic IVF IV Levofloxacin advance diet as tolerated Acute on chronic anemia w coffee ground emesis drop from 10.7 to 9.4 follow H&H Pantoprazole IV GI eval Hypertension Continue carvedilol, amlodipine, lisinopril History of TIA Posterior circulation, 05/2021, no residual, clinical diagnosis, negative MRI Continue Lipitor, added baby aspirin Mood disorder Continue BuSpar, ativan Mild intermittent asthma Albuterol as needed History of cutaneous lupus In remission DVT prophylaxis SCDs Full Code The patient will likely need 2 overnight hospital stay for IV antibiotics pending GI eval and recommendations Quality Stroke Does the patient have a stroke diagnosis?: No VTE Prior VTE?: No VTE Risk Level:: Medical - moderate - high VTE Device Contraindication: N/A - Device Ordered VTE Drug Contraindication: Treatment Not Indicated
[2024-12-04] MEDS: Pantoprazole Sodium 40 MG/10 ML VIAL 80 MG IVPUSH (23:41)
[2024-12-04] MEDS: metroNIDAZOLE/NS 500 MG/100 ML PIGGYBACK 100 MG IV (23:41)
[2024-12-04] MEDS: levoFLOXacin/D5W 750 MG/150 ML PIGGYBACK 100 MG IV (23:51)
[2024-12-05] VITALS (8 sets, daily range): BP systolic 103–149; BP diastolic 58–75; PULSE 85–94; RESP 16–20; TEMP 36.3–36.9; O2SAT 93–96
[2024-12-05] MEDS: Lactated Ringers 1,000 ML 100 ML IVCONT ×2 (01:28→13:12)
[2024-12-05] MEDS: Melatonin 3 MG TABLET 6 MG PO ×2 (01:33→21:57)
[2024-12-05] MEDS: LORazepam 0.5 MG TABLET PO (01:33)
[2024-12-05] MEDS: chlordiazePOXIDE HCl 5 MG CAPSULE PO ×2 (04:22→21:58)
[2024-12-05 05:00] LABS: Hematocrit 27.2 % (37.0-47.0); Hemoglobin 8.9 g/dl (12.0-16.0); Mean Corpuscular HGB Conc 32.7 g/dl (31.0-35.0); Mean Corpuscular Hemoglobin 27.4 pg (27.0-33.0); Mean Corpuscular Volume 83.7 fL (80.0-98.0); Mean Platelet Volume 9.1 fL (9.4-12.3); Platelet Count 277 X10*3/uL (160-400); Red Blood Count 3.25 X10*6/uL (4.20-5.50); Red Cell Distribution Width 15.1 % (11.0-16.0); White Blood Count 5.5 X10*3/uL (4.8-10.8)
[2024-12-05 05:16] LABS: Anion Gap 14 (12-20); Blood Urea Nitrogen 12 mg/dL (9-16); Calcium 8.1 mg/dL (8.4-10.2); Carbon Dioxide 20 mmol/L (22-29); Chloride 105 mmol/L (96-108); Creatinine Clr Calc Pharmacy 63.2; Estimated Glomerular Filt Rate > 60; Glucose Random 90 mg/dL (60-115); Potassium 3.5 mmol/L (3.3-5.1); Sodium 135 mmol/L (135-145)
[2024-12-05] MEDS: Pantoprazole Sodium 40 MG/10 ML VIAL IVPUSH ×2 (06:34→15:40)
--- NOTE | 2024-12-05 07:27 | HO.PM.IMPN ---
Subjective Subjective Date of Service: 12/05/24 Interval History: f/u on acute diverticulitis, and anemia still has some abdominal pain, but no further vomitting, h/h slightly down Physical Exam Vital Signs: Vital Signs: Last Vital Signs Temp 98.2 F 12/05/24 03:59 Pulse 94 12/05/24 03:59 Resp 16 12/05/24 03:59 BP 103/65 12/05/24 03:59 Pulse Ox 95 12/05/24 03:59 O2 Del Method Room Air 12/05/24 03:59 BMI result Body Mass Index 25.7 Const: Other: General: AO X 3, no acute distress Resp: CTA bilateral CVS: S1,S2,RRR GI: +BS, minor tenderness Skin: No rash Neuro: motor grossly intact Psych: appropriate affect Objective Data Active Medications Acetaminophen (Acetaminophen 325 Mg Tablet) 650 mg PO Q6H PRN PRN Reason: Pain, Mild 1-3,fever,headache Calcium Carbonate (Calcium Carbonate 750 Mg Tab.Chew) 750 mg PO Q4H PRN PRN Reason: Heartburn Chlordiazepoxide HCl (Chlordiazepoxide Hcl 5 Mg Capsule) 5 mg PO QID PRN PRN Reason: anxiety/restlessness Last Admin: 12/05/24 04:22 Dose: 5 mg Documented By: ELIZA Lactated Ringer's (Lr) 1,000 mls @ 100 mls/hr IVCONT .Q10H RAMONA Last Admin: 12/05/24 01:28 Dose: 100 mls/hr Documented By: ALEJANDRO Levofloxacin (Levaquin) 750 mg in 150 mls @ 100 mls/hr IV BEDTIME RAMONA Lorazepam (Lorazepam 0.5 Mg Tablet) 0.5 mg PO Q8H PRN PRN Reason: anxiety/restlessness Last Admin: 12/05/24 01:33 Dose: 0.5 mg Documented By: ALEJANDRO Magnesium Hydroxide (Milk Of Magnesia 30 Ml Oral.Susp) 30 ml PO DAILY PRN PRN Reason: Constipation Melatonin (Melatonin 3 Mg Tablet) 6 mg PO BEDTIME PRN PRN Reason: Insomnia Last Admin: 12/05/24 01:33 Dose: 6 mg Documented By: ALEJANDRO Morphine Sulfate (Morphine Sulfate 4 Mg/Ml Cartridge) 2 mg IVPUSH Q4H PRN; Protocol PRN Reason: Pain, Severe (Pain Scale 7-10) Ondansetron HCl (Ondansetron Hcl 4 Mg/2 Ml Vial) 4 mg IVPUSH Q8H PRN PRN Reason: Nausea and Vomiting Pantoprazole Sodium (Pantoprazole Sodium 40 Mg/10 Ml Vial) 40 mg IVPUSH BID@0630,1630 [facility] Last Admin: 12/05/24 06:34 Dose: 40 mg Documented By: ALEJANDRO Sodium Chloride (0.9 % Sodium Chloride Flush 3 Ml Syringe) 3 ml IVFLUSH QSHIFT [facility] Labs 12/05/24 04:32 12/05/24 04:32 Labs: Laboratory Results - last 24 hr 12/04/24 12/04/24 12/04/24 16:15 17:21 20:19 MCV 82.4 MCH 27.5 MCHC 33.4 RDW 15.0 Plt Count 330 MPV 8.7 L Immature Gran % (Auto) 0.3 Neut % (Auto) 72.0 Lymph % (Auto) 16.6 L [place] % (Auto) 8.6 Eos % (Auto) 1.6 Baso % (Auto) 0.9 Lymph # (Auto) 1.1 L [place] # (Auto) 0.6 Eos # (Auto) 0.1 Baso # (Auto) 0.1 Abs Immat Gran (auto) 0.02 Absolute Neuts (auto) 4.9 Absolute Nucleated RBC 0.000 Nucleated RBC % (auto) 0.0 PT 11.4 INR 1.0 Anion Gap 14 Estim Creat Clear Calc 51.6 Estimated GFR > 60 Random Glucose 103 Calcium 9.3 Total Bilirubin 0.4 AST 21 ALT 8 Alkaline Phosphatase 57 Total Protein 6.6 Albumin 3.8 Urine Color Yellow Urine Appearance Cloudy Urine pH 5.5 Ur Specific [place] 1.020 Urine Protein Trace Urine Glucose (UA) Negative Urine Ketones 40 Urine Blood Negative Urine Nitrite Negative Ur Leukocyte Esterase Moderate (2+) H Urine RBC 0-2 Urine WBC 21-50 H Ur Squamous Epith Cells 11-20 Urine Bacteria None Seen Hyaline Casts 0-2 Stool Occult Blood NEGATIVE Influenza Type A (PCR) NEGATIVE Influenza Type B (PCR) NEGATIVE RSV RNA Qual (PCR) NEGATIVE SARS-CoV-2 RNA (RT-PCR) NEGATIVE Blood Type B Positive Antibody Screen NEGATIVE 12/04/24 12/05/24 21:47 04:32 MCV 83.4 83.7 MCH 27.4 27.4 MCHC 32.9 32.7 RDW 15.0 15.1 Plt Count 307 277 MPV 9.1 L 9.1 L Immature Gran % (Auto) 0.3 Neut % (Auto) 66.1 Lymph % (Auto) 23.7 [place] % (Auto) 8.4 Eos % (Auto) 0.9 Baso % (Auto) 0.6 Lymph # (Auto) 1.6 [place] # (Auto) 0.6 Eos # (Auto) 0.1 Baso # (Auto) 0.0 Abs Immat Gran (auto) 0.02 Absolute Neuts (auto) 4.5 Absolute Nucleated RBC 0.000 0.000 Nucleated RBC % (auto) 0.0 0.0 PT INR Anion Gap 14 Estim Creat Clear Calc 63.2 Estimated GFR > 60 Random Glucose 90 Calcium 8.1 L D Total Bilirubin AST ALT Alkaline Phosphatase Total Protein Albumin Urine Color Urine Appearance Urine pH Ur Specific [place] Urine Protein Urine Glucose (UA) Urine Ketones Urine Blood Urine Nitrite Ur Leukocyte Esterase Urine RBC Urine WBC Ur Squamous Epith Cells Urine Bacteria Hyaline Casts Stool Occult Blood Influenza Type A (PCR) Influenza Type B (PCR) RSV RNA Qual (PCR) SARS-CoV-2 RNA (RT-PCR) Blood Type Antibody Screen Assessment and Plan (1) Acute diverticulitis: Status: Acute Plan A 74 years old lady with PMH of Asthma, HLD, HTN, GERD, anxiery, Lupus, CVA, vertigo, hx adhesions post lysis among others presenting for abdominal pain and urine frequency. Acute uncomplicated diverticulitis not septic IVF IV Levofloxacin + Flagyl advance diet as tolerated Acute on chronic anemia w coffee ground emesis drop from 10.7 to 9.4-> 8.9 follow H&H Pantoprazole IV GI eval Hypertension--Bp borderline, hold meds ( carvedilol, amlodipine, lisinopril) History of TIA Posterior circulation, 05/2021, no residual, clinical diagnosis, negative MRI Continue Lipitor, added baby aspirin Mood disorder Continue BuSpar, ativan Mild intermittent asthma Albuterol as needed History of cutaneous lupus In remission DVT prophylaxis SCDs Full Code med rec pending The patient will likely need 2 overnight hospital stay for IV antibiotics pending GI eval and recommendations Quality Stroke Does the patient have a stroke diagnosis?: No VTE Prior VTE?: No VTE Risk Level:: Medical - moderate - high VTE Device Contraindication: N/A - Device Ordered VTE Drug Contraindication: Treatment Not Indicated
[2024-12-05] MEDS: metroNIDAZOLE/NS 500 MG/100 ML PIGGYBACK 100 MG IV ×2 (07:58→15:42)
--- NOTE | 2024-12-05 08:35 | PM.GICN ---
History of Present Illness Data of Consult Service Date: 12/05/24 Requesting physician: Azalea Figueroa Primary Care Provider: Arnulfo Villalba MD [facility] Reason for consult: Coffee ground emesis This is a 74-year-old female with past medical history of hypertension, GERD, rheumatoid arthritis, history of CVA, paraesophageal hernia s/p repair 09/13/2024 laparoscopic lysis of adhesions and gastropexy who presented for coffee grounds emesis which Gastroenterology has been consulted. History was obtained from the patient who states that for almost a week she has been having lower abd pain with cramping L>R assoc with constipation. She was initially tx for possible UTI by PCP. However the day of admission her abd pain worsened and had N/V with coffee grounds and therefore came to ER. She had another witnessed episode of coffee grounds emesis in the ER. Work up so far significant for L side diverticulitis. CT abd/pel independently reviewed and also has atypical focal ascending colon wall thickening. Her last colo was in 2019 (x2 T.A in ASCENDING colon). Currently reports no further vomiting since the episode in ER. L lower abd cramping is the main complaint. Labs with decline in H/H noted, normocytic. BUN has normalized today. 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 Headache Sinusitis Asthma Generalized anxiety disorder Mood disorder, drug-induced Diaphragmatic hernia Panic disorder [episodic paroxysmal anxiety] Dysthymia Hypertension Diverticulitis CVA (cerebral vascular accident) Vertigo Tubular adenoma of colon Positive colorectal cancer screening using Cologuard test Irritable bowel syndrome with both constipation and diarrhea GERD (gastroesophageal reflux disease) Depression with anxiety HTN (hypertension), benign Lupus Family History Family History Father CAD (coronary artery disease) Maternal Grandmother HTN (hypertension), benign Father No problems noted. Mother Hypertension Asthma COPD (chronic obstructive pulmonary disease) Surgical History Surgical History S/P repair of paraesophageal hernia H/O wrist surgery Hx of colonoscopy History of cholecystectomy Social History Social History Household Members: Family Household Members Other:: niece lives upstairs Housing: House Are you a primary direct support professional caregiver to a significant other at home: No Do you presently have visiting nurse or other home services: No Alcohol intake: never Patient Tobacco Use Status: Former Tobacco user Tobacco use type: Cigarette Years Smoked: quit greater than 10 years ago Second Hand Smoke Exposure: No Advance Directives Date on File: 04/07/23 service: No Current occupational status: retired 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, 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 Meds Allergies Allergy/AdvReac Type Severity Reaction Status Date / Time Codeine Sulfate Allergy Severe Anaphylaxis Verified 12/04/24 15:07 Antihistamine Allergy Intermediate Shakiness Verified 12/04/24 15:07 egg Allergy Intermediate Heartburn Verified 12/04/24 15:07 Sulfa (Sulfonamide Allergy Intermediate RASH Verified 12/04/24 15:07 Antibiotics) [SULFA (SULFONAMIDE ANTIBIOTICS)] diphenhydramine Allergy sweats, Verified 12/04/24 15:07 [From Benadryl] palpitation cefuroxime AdvReac delerium Verified 12/04/24 15:07 ,paranoia Active Medications: Current Medications Acetaminophen (Acetaminophen 325 Mg Tablet) 650 mg PO Q6H PRN PRN Reason: Pain, Mild 1-3,fever,headache Calcium Carbonate (Calcium Carbonate 750 Mg Tab.Chew) 750 mg PO Q4H PRN PRN Reason: Heartburn Chlordiazepoxide HCl (Chlordiazepoxide Hcl 5 Mg Capsule) 5 mg PO QID PRN PRN Reason: anxiety/restlessness Last Admin: 12/05/24 04:22 Dose: 5 mg Lactated Ringer's (Lr) 1,000 mls @ 100 mls/hr IVCONT .Q10H RAMONA Last Admin: 12/05/24 01:28 Dose: 100 mls/hr Levofloxacin (Levaquin) 750 mg in 150 mls @ 100 mls/hr IV BEDTIME RAMONA Metronidazole (Flagyl) 500 mg in 100 mls @ 100 mls/hr IV Q8H [facility] Last Admin: 12/05/24 07:58 Dose: 100 mls/hr Lorazepam (Lorazepam 0.5 Mg Tablet) 0.5 mg PO Q8H PRN PRN Reason: anxiety/restlessness Last Admin: 12/05/24 01:33 Dose: 0.5 mg Magnesium Hydroxide (Milk Of Magnesia 30 Ml Oral.Susp) 30 ml PO DAILY PRN PRN Reason: Constipation Melatonin (Melatonin 3 Mg Tablet) 6 mg PO BEDTIME PRN PRN Reason: Insomnia Last Admin: 12/05/24 01:33 Dose: 6 mg Morphine Sulfate (Morphine Sulfate 4 Mg/Ml Cartridge) 2 mg IVPUSH Q4H PRN; Protocol PRN Reason: Pain, Severe (Pain Scale 7-10) Ondansetron HCl (Ondansetron Hcl 4 Mg/2 Ml Vial) 4 mg IVPUSH Q8H PRN PRN Reason: Nausea and Vomiting Pantoprazole Sodium (Pantoprazole Sodium 40 Mg/10 Ml Vial) 40 mg IVPUSH BID@0630,1630 [facility] Last Admin: 12/05/24 06:34 Dose: 40 mg Sodium Chloride (0.9 % Sodium Chloride Flush 3 Ml Syringe) 3 ml IVFLUSH QSHIFT [facility] Last Admin: 12/05/24 07:56 Dose: Not Given Home Medications ?Medication ?Instructions ?Recorded ?Confirmed ?Last Taken ?Type fluticasone propionate 50 1 spray intranasal DAILY PRN 08/08/20 12/05/24 09/12/24 History mcg/actuation nasal Allergic Symptoms spray,suspension albuterol sulfate 90 mcg/actuation 2 puff inhalation Q6H PRN 10/22/21 12/05/24 09/12/24 History aerosol inhaler (Ventolin HFA) Respiratory Distress acetaminophen 500 mg tablet 1,000 mg PO Q6H PRN Pain 07/24/22 12/05/24 Unknown History (Tylenol Extra Strength) aspirin 81 mg tablet,delayed 81 mg PO DAILY 07/24/22 12/05/24 12/04/24 History release (Adult Low Dose Aspirin) carvedilol 25 mg tablet 25 mg PO BID 10/24/22 12/05/24 12/04/24 History lisinopril 20 mg tablet 20 mg PO DAILY 10/24/22 12/05/24 12/04/24 History magnesium chloride 71.5 mg 1 tab PO DAILY 10/24/22 12/05/24 12/04/24 History (magnesium chloride) tablet,delayed release (Slow-Mag) alendronate 70 mg tablet 70 mg PO TH@0900 06/26/24 12/05/24 12/04/24 History chlordiazepoxide HCl 5 mg capsule 5 mg PO TID PRN anxiety 09/13/24 12/05/24 Unknown History omeprazole 40 mg capsule,delayed 40 mg PO DAILY@0630 12/05/24 12/05/24 12/04/24 History release Physical Exam Vital Signs: Vital Signs: Last Vital Signs Temp 98.1 F 12/05/24 08:04 Pulse 88 12/05/24 08:04 Resp 18 12/05/24 08:04 BP 141/75 H 12/05/24 08:04 Pulse Ox 96 12/05/24 08:04 O2 Del Method Room Air 12/05/24 08:04 BMI result Body Mass Index 25.7 No apparent distress Nonicteric No overt resp distress Abdomen soft, nondistended, mild tenderness in LLQ Alert and oriented x3, n focal deficits Results Labs 12/05/24 04:32 12/05/24 04:32 Labs: Short CBC 12/04/24 12/04/24 12/04/24 Range/Units 16:15 17:21 21:47 WBC 6.9 6.8 (4.8-10.8) X10*3/uL Hgb 10.3 L 10.3 L 9.4 L (12.0-16.0) g/dl Hct 30.8 L D 31.1 L 28.6 L (37.0-47.0) % Plt Count 330 307 (160-400) X10*3/uL 12/05/24 Range/Units 04:32 WBC 5.5 (4.8-10.8) X10*3/uL Hgb 8.9 L (12.0-16.0) g/dl Hct 27.2 L (37.0-47.0) % Plt Count 277 (160-400) X10*3/uL BMP 12/04/24 12/05/24 16:15 04:32 Sodium 135 135 Potassium 3.7 3.5 Chloride 102 105 Carbon Dioxide 23 20 L BUN 17 H 12 Creatinine 0.76 0.62 Calcium 9.3 8.1 L D Liver Function 12/04/24 Range/Units 16:15 Total Bilirubin 0.4 (0.0-1.0) mg/dL AST 21 (5-31) U/L ALT 8 (0-31) U/L Alkaline Phosphatase 57 (39-117) U/L Albumin 3.8 (3.5-5.0) g/dL Urine 12/04/24 Range/Units 16:15 Urine Color Yellow Urine Appearance Cloudy Urine pH 5.5 (5.0-9.0) Ur Specific [place] 1.020 (1.005-1.025) Urine Protein Trace (Neg-Trace) mg/dL Urine Glucose (UA) Negative (Negative) mg/dL Assessment and Plan (1) Acute on chronic anemia: Status: Acute (2) Acute diverticulitis: Status: Acute (3) Colon wall thickening: Status: Acute (4) Hematemesis: Status: Acute Plan Pt with self limiting coffee grounds emesis x 2. No recurrence x 24h and BUN has also downtrended reflecting low likelihood of cont'd UGIB. Will hold off EGD for now, and book her as outpatient for EGD/colo for i) anemia, ii) atypical colon wall thickness and iii) follow up diverticulitis. This will be booked 6-8 weeks after this hospitalization. OK to advance diet from GI standpoint. Can switch Abx to PO. Please call back if patient has recurrence of hematemesis to proceed with inpatient EGD. Thank you for allowing me to participate in her care. Please do not hesitate to reach out for questions or concerns. Procedures Date of Service Date of Service: 12/05/24
[2024-12-05] MEDS: ondansetron HCL 4 MG/2 ML VIAL IVPUSH (11:08)
--- NOTE | 2024-12-05 11:32 | PHA.MEDREC ---
Addendum entered by Na Jones RPh 12/05/24 11:49: reviewed by [facility]. Original Note: Pharmacy Consult ? Medication Reconciliation Pharmacy has completed the medication reconciliation. Spoke to patient to confirm med list. Patient states she is no longer taking Ondansetron 4 mg, Pantoprazole 40 mg (taking Omepraole 40 mg), Sucralfate 100 mg/ml. Patient states she is still taking Alendronate 70 mg every , however last fill was 06/21/24 for 84 days, Amlodipine 5 mg, however last fill was 05/20/24 for 30 days, Atorvastatin 40 mg, however last fill was 04/25/24 for 30 days, Buspirone 10 mg, however last fill was 04/11/24 for 90 days, Lisinopril 20 mg, however last fill was 06/03/24 for 30 days. Patient states she last took her medications yesterday. So, left on med rec.
--- NOTE | 2024-12-05 12:51 | MHC.CM.PN ---
PT LIVES IN A 2 FAMILY HER NIECE LIVES UPSTAIRS SHE HAD NO PREVIOUS SERVICES HAS HER OWN RIDE HOME DC PLAN HOME NO SERVICES
[2024-12-05] MEDS: levoFLOXacin/D5W 750 MG/150 ML PIGGYBACK 50 MG IV (21:35)
--- NOTE | 2024-12-05 22:12 | PC.NURSE ---
Addendum entered by Naz Ellison RN 12/06/24 01:13: third and final bag hung [id number] Addendum entered by Naz Ellison RN 12/05/24 22:37: second bag hung [id number] Addendum entered by Naz Ellisno RN 12/05/24 22:19: first bag hung [id number] Original Note: Reached out to Pharmacy regarding 750mg IV Levaquin dose. Pyxis having this nurse pull 3 bags(each bag 250mg/50ml), and each bag is to be given over 1 hour which did not match order. Called pharmacy for verification, Rajesh Mas made aware of situation and changed infusion time to 3 hours for the total of 3 bags. Pharmacist said Ok to scan all 3 bags and to program one bag(250mg/50ml) /hour on pump.
[2024-12-06] VITALS (10 sets, daily range): BP systolic 118–147; BP diastolic 57–69; PULSE 78–100; RESP 16–20; TEMP 36–36.8; O2SAT 93–97
[2024-12-06] MEDS: metroNIDAZOLE/NS 500 MG/100 ML PIGGYBACK 100 MG IV ×4 (01:11→23:40)
[2024-12-06] MEDS: ondansetron HCL 4 MG/2 ML VIAL IVPUSH (02:00)
[2024-12-06] MEDS: Lactated Ringers 1,000 ML 100 ML IVCONT (03:04)
[2024-12-06] MEDS: Morphine Sulfate 4 MG/ML CARTRIDGE 2 MG IVPUSH ×2 (03:17→17:28)
[2024-12-06] MEDS: Pantoprazole Sodium 40 MG/10 ML VIAL IVPUSH (05:30)
[2024-12-06] MEDS: 0.9 % Sodium Chloride Flush 3 ML SYRINGE IVFLUSH ×3 (08:37→20:48)
[2024-12-06 10:27] LABS: Hemoglobin 9.2 g/dl (12.0-16.0)
--- NOTE | 2024-12-06 13:08 | HO.PM.IMPN ---
Subjective Subjective Date of Service: 12/06/24 Interval History: f/u on acute diverticulitis, and anemia Review of Systems has some abd pain left side, she said she need iv pain medsx2 overnight due to pain. no coffee ground episode today. Physical Exam Vital Signs: Vital Signs: Last Vital Signs Temp 96.8 F 12/06/24 11:37 Pulse 98 12/06/24 11:37 Resp 16 12/06/24 11:37 BP 147/65 H 12/06/24 11:37 Pulse Ox 97 12/06/24 11:37 O2 Del Method Room Air 12/06/24 11:37 BMI result Body Mass Index 25.7 General: AO X 3, no acute distress Resp: CTA bilateral CVS: S1,S2,RRR GI: +BS, minor tenderness Skin: No rash Neuro: motor grossly intact Psych: appropriate affect Objective Data Active Medications Acetaminophen (Acetaminophen 325 Mg Tablet) 650 mg PO Q6H PRN PRN Reason: Pain, Mild 1-3,fever,headache Calcium Carbonate (Calcium Carbonate 750 Mg Tab.Chew) 750 mg PO Q4H PRN PRN Reason: Heartburn Chlordiazepoxide HCl (Chlordiazepoxide Hcl 5 Mg Capsule) 5 mg PO QID PRN PRN Reason: anxiety/restlessness Last Admin: 12/05/24 21:58 Dose: 5 mg Documented By: LUCAS Metronidazole (Flagyl) 500 mg in 100 mls @ 100 mls/hr IV Q8H [facility] Last Infusion: 12/06/24 09:33 Dose: Infused Documented By: LEANNE Levofloxacin (Levaquin) 750 mg in 150 mls @ 50 mls/hr IV BEDTIME [facility] Last Infusion: 12/06/24 00:55 Dose: Infused Documented By: LUCAS Lorazepam (Lorazepam 0.5 Mg Tablet) 0.5 mg PO Q8H PRN PRN Reason: anxiety/restlessness Last Admin: 12/05/24 01:33 Dose: 0.5 mg Documented By: ALEJANDRO Magnesium Hydroxide (Milk Of Magnesia 30 Ml Oral.Susp) 30 ml PO DAILY PRN PRN Reason: Constipation Melatonin (Melatonin 3 Mg Tablet) 6 mg PO BEDTIME PRN PRN Reason: Insomnia Last Admin: 12/05/24 21:57 Dose: 6 mg Documented By: LUCAS Morphine Sulfate (Morphine Sulfate 4 Mg/Ml Cartridge) 2 mg IVPUSH Q4H PRN; Protocol PRN Reason: Pain, Severe (Pain Scale 7-10) Last Admin: 12/06/24 03:17 Dose: 2 mg Documented By: LUCAS Ondansetron HCl (Ondansetron Hcl 4 Mg/2 Ml Vial) 4 mg IVPUSH Q8H PRN PRN Reason: Nausea and Vomiting Last Admin: 12/06/24 02:00 Dose: 4 mg Documented By: LUCAS Pantoprazole Sodium (Pantoprazole Sodium 40 Mg/10 Ml Vial) 40 mg IVPUSH BID@0630,1630 [facility] Last Admin: 12/06/24 05:30 Dose: 40 mg Documented By: LUCAS Sodium Chloride (0.9 % Sodium Chloride Flush 3 Ml Syringe) 3 ml IVFLUSH QSHIFT [facility] Last Admin: 12/06/24 08:37 Dose: 3 ml Documented By: JUSTOBBAJ Labs 12/06/24 10:08 12/05/24 04:32 Microbiology Microbiology Results: Microbiology 12/04/24 16:15 Urine Culture - Preliminary Urine clean catch - Clean Catch Midstream Gram negative dm Enterococcus/Streptococcus sp Assessment and Plan (1) Acute diverticulitis: Status: Acute Plan 74 years old lady with PMH of Asthma, HLD, HTN, GERD, anxiery, Lupus, CVA, vertigo, hx adhesions post lysis among others presenting for abdominal pain and urine frequency. Acute uncomplicated diverticulitis not septic IVF IV Levofloxacin + Flagyl clear liquid diet trial Acute on chronic anemia w coffee ground emesis drop from 10.7 to 9.4-> 8.9-9.2 follow H&H Pantoprazole IV GI eval- egd /colo outpatient in 6-8 weeks: due to- i) anemia, ii) atypical colon wall thickness and iii) follow up diverticulitis. Hypertension--improving flacuating in 120-140's added low dose carvedilol today will slowly add -amlodipine, lisinopril if bp allows. History of TIA Posterior circulation, 05/2021, no residual, clinical diagnosis, negative MRI Continue Lipitor, hold aspirin for above(anemia/coffee ground). Mood disorder Continue BuSpar, ativan Mild intermittent asthma Albuterol as needed History of cutaneous lupus In remission DVT prophylaxis SCDs Full Code ongoing need for hospital stay for IV antibiotics pending GI eval , moniter h/h and recommendations . Quality Stroke Does the patient have a stroke diagnosis?: No VTE Prior VTE?: No VTE Risk Level:: Medical - moderate - high VTE Device Contraindication: N/A - Device Ordered VTE Drug Contraindication: Treatment Not Indicated
[2024-12-06] MEDS: carvediloL 6.25 MG TABLET PO ×2 (14:24→20:41)
[2024-12-06] MEDS: Omeprazole 40 MG CAPSULE.DR PO (16:15)
[2024-12-06] MEDS: levoFLOXacin/D5W 750 MG/150 ML PIGGYBACK 50 MG IV (20:36)
[2024-12-06] MEDS: busPIRone HCl 10 MG TABLET PO (20:40)
[2024-12-06] MEDS: PARoxetine HCL 40 MG TABLET PO (20:40)
[2024-12-06] MEDS: Atorvastatin Calcium 40 MG TABLET PO (20:40)
[2024-12-06] MEDS: Milk of Magnesia 30 ML ORAL.SUSP PO (20:53)
[2024-12-06] MEDS: Acetaminophen 325 MG TABLET 650 MG PO (21:56)
[2024-12-06] MEDS: Melatonin 3 MG TABLET 6 MG PO (21:56)
[2024-12-06] MEDS: chlordiazePOXIDE HCl 5 MG CAPSULE PO (21:56)
[2024-12-07 03:32] VITALS: BP 127/61; PULSE 73; RESP 17; TEMP 36.6; O2SAT 96
[2024-12-07] MEDS: Omeprazole 40 MG CAPSULE.DR PO ×2 (05:23→17:02)
[2024-12-07] MEDS: ondansetron HCL 4 MG/2 ML VIAL IVPUSH ×3 (05:23→23:25)
[2024-12-07 07:49] VITALS: BP 129/70; PULSE 86; RESP 16; TEMP 36.5; O2SAT 91
[2024-12-07] MEDS: amLODIPine Besylate 5 MG TABLET PO (08:44)
[2024-12-07] MEDS: carvediloL 6.25 MG TABLET PO ×2 (08:44→20:02)
[2024-12-07] MEDS: busPIRone HCl 10 MG TABLET PO ×2 (08:44→20:02)
[2024-12-07] MEDS: lisinopriL 20 MG TABLET PO (08:44)
[2024-12-07] MEDS: 0.9 % Sodium Chloride Flush 3 ML SYRINGE IVFLUSH ×3 (08:53→20:02)
[2024-12-07] MEDS: metroNIDAZOLE/NS 500 MG/100 ML PIGGYBACK 100 MG IV ×3 (08:53→23:25)
[2024-12-07] MEDS: Morphine Sulfate 4 MG/ML CARTRIDGE 2 MG IVPUSH ×2 (09:03→20:15)
[2024-12-07] MEDS: chlordiazePOXIDE HCl 5 MG CAPSULE PO ×2 (09:04→17:02)
[2024-12-07 11:39] VITALS: BP 118/59; PULSE 71; RESP 16; TEMP 36.3; O2SAT 94
--- NOTE | 2024-12-07 13:27 | P.PNIM_ITS ---
Subjective Subjective Date of Service: 12/07/24 Interval History: f/u on acute diverticulitis, and anemia Review of Systems abd pain similar unable to tolerate regular diet yet due to pain no fevers Physical Exam 2 Vital Signs: Vital Signs: Last Vital Signs Temp 97.3 F 12/07/24 11:39 Pulse 71 12/07/24 11:39 Resp 16 12/07/24 11:39 BP 118/59 L 12/07/24 11:39 Pulse Ox 94 12/07/24 11:39 O2 Del Method Room Air 12/07/24 11:39 BMI result Body Mass Index 25.7 General: AO X 3, no acute distress Resp: CTA bilateral CVS: S1,S2,RRR GI: +BS, minor tenderness Skin: No rash Neuro: motor grossly intact Psych: appropriate affect Objective Data Active Medications Acetaminophen (Acetaminophen 325 Mg Tablet) 650 mg PO Q6H PRN PRN Reason: Pain, Mild 1-3,fever,headache Last Admin: 12/06/24 21:56 Dose: 650 mg Documented By: LUCAS Albuterol Sulfate (Albuterol Sulfate 90 Mcg 8 Gm Inhaler) 2 puff INHALE Q6H PRN PRN Reason: Respiratory Distress Amlodipine Besylate (Amlodipine Besylate 5 Mg Tablet) 5 mg PO DAILY [facility]; Protocol Last Admin: 12/07/24 08:44 Dose: 5 mg Documented By: ALEX Atorvastatin Calcium (Atorvastatin Calcium 40 Mg Tablet) 40 mg PO BEDTIME [facility] Last Admin: 12/06/24 20:40 Dose: 40 mg Documented By: LUCAS Buspirone HCl (Buspirone Hcl 10 Mg Tablet) 10 mg PO BID [facility] Last Admin: 12/07/24 08:44 Dose: 10 mg Documented By: ALEX Calcium Carbonate (Calcium Carbonate 750 Mg Tab.Chew) 750 mg PO Q4H PRN PRN Reason: Heartburn Carvedilol (Carvedilol 6.25 Mg Tablet) 6.25 mg PO BID [facility]; Protocol Last Admin: 12/07/24 08:44 Dose: 6.25 mg Documented By: ALEX Chlordiazepoxide HCl (Chlordiazepoxide Hcl 5 Mg Capsule) 5 mg PO TID PRN PRN Reason: anxiety Last Admin: 12/07/24 09:04 Dose: 5 mg Documented By: ALEX Fluticasone Propionate (Fluticasone Propionate Nasal 16 Gm [place]) 1 spray NOSTRIL-B DAILY PRN PRN Reason: Allergic Symptoms Metronidazole (Flagyl) 500 mg in 100 mls @ 100 mls/hr IV Q8H [facility] Last Infusion: 12/07/24 10:01 Dose: Infused Documented By: ALEX Levofloxacin (Levaquin) 750 mg in 150 mls @ 50 mls/hr IV BEDTIME [facility] Last Infusion: 12/06/24 23:36 Dose: Infused Documented By: LUCAS Lisinopril (Lisinopril 20 Mg Tablet) 20 mg PO DAILY [facility]; Protocol Last Admin: 12/07/24 08:44 Dose: 20 mg Documented By: ALEX Lorazepam (Lorazepam 0.5 Mg Tablet) 0.5 mg PO BID PRN PRN Reason: anxiety Magnesium Hydroxide (Milk Of Magnesia 30 Ml Oral.Susp) 30 ml PO DAILY PRN PRN Reason: Constipation Last Admin: 12/06/24 20:53 Dose: 30 ml Documented By: LUCAS Melatonin (Melatonin 3 Mg Tablet) 6 mg PO BEDTIME PRN PRN Reason: Insomnia Last Admin: 12/06/24 21:56 Dose: 6 mg Documented By: LUCAS Morphine Sulfate (Morphine Sulfate 4 Mg/Ml Cartridge) 2 mg IVPUSH Q6H PRN; Protocol PRN Reason: Pain, Severe (Pain Scale 7-10) Last Admin: 12/07/24 09:03 Dose: 2 mg Documented By: ALEX Omeprazole (Omeprazole 40 Mg Capsule.Dr) 40 mg PO BID@0630,1630 [facility] Last Admin: 12/07/24 05:23 Dose: 40 mg Documented By: LUCAS Ondansetron HCl (Ondansetron Hcl 4 Mg/2 Ml Vial) 4 mg IVPUSH Q6H PRN PRN Reason: Nausea and Vomiting Paroxetine HCl (Paroxetine Hcl 40 Mg Tablet) 40 mg PO BEDTIME [facility] Last Admin: 12/06/24 20:40 Dose: 40 mg Documented By: LUCAS Sodium Chloride (0.9 % Sodium Chloride Flush 3 Ml Syringe) 3 ml IVFLUSH QSHIFT [facility] Last Admin: 12/07/24 08:53 Dose: 3 ml Documented By: ALEX Labs 12/06/24 10:08 12/05/24 04:32 Microbiology Microbiology Results: Microbiology 12/04/24 16:15 Urine Culture - Final Urine clean catch - Clean Catch Midstream Klebsiella pneumoniae Enterococcus faecalis Assessment and Plan (1) Acute diverticulitis: Status: Acute Plan 74 years old lady with PMH of Asthma, HLD, HTN, GERD, anxiery, Lupus, CVA, vertigo, hx adhesions post lysis among others presenting for abdominal pain and urine frequency. Acute uncomplicated diverticulitis not septic IVF IV Levofloxacin + Flagyl clear liquid diet trial Acute on chronic anemia w coffee ground emesis drop from 10.7 to 9.4-> 8.9-9.2 follow H&H Pantoprazole IV GI eval- egd /colo outpatient in 6-8 weeks: due to- i) anemia, ii) atypical colon wall thickness and iii) follow up diverticulitis. Hypertension--improving flacuating in 120-140's added low dose carvedilol today will slowly add -amlodipine, lisinopril if bp allows. History of TIA Posterior circulation, 05/2021, no residual, clinical diagnosis, negative MRI Continue Lipitor, added aspirin back as per Gi. Mood disorder Continue BuSpar, ativan Mild intermittent asthma Albuterol as needed History of cutaneous lupus In remission DVT prophylaxis SCDs Full Code ongoing need for hospital stay for IV antibiotics ,unable to tolerate diet, need iv pain meds, moniter h/h and recommendations . Quality Stroke Does the patient have a stroke diagnosis?: No VTE Prior VTE?: No VTE Risk Level:: Medical - moderate - high VTE Device Contraindication: N/A - Device Ordered VTE Drug Contraindication: Treatment Not Indicated
[2024-12-07 15:15] VITALS: BP 128/55; PULSE 67; RESP 16; TEMP 36.6; O2SAT 93
--- NOTE | 2024-12-07 15:28 | MHC.CM.PN ---
per rounds pt not medically ready for dc dc plan remains home no servies
[2024-12-07 19:07] VITALS: BP 131/64; PULSE 68; RESP 20; TEMP 36.6; O2SAT 93
[2024-12-07] MEDS: PARoxetine HCL 40 MG TABLET PO (20:02)
[2024-12-07] MEDS: Atorvastatin Calcium 40 MG TABLET PO (20:02)
[2024-12-07] MEDS: levoFLOXacin/D5W 750 MG/150 ML PIGGYBACK 50 MG IV (20:03)
--- NOTE | 2024-12-07 20:19 | PC.NURSE ---
pt scheduled to get levaquin 750mg IV.pyxis had me take out levaquin 250mg 3 bags each bag to be given over 1 hour for a total of 750mg. this was verified by pharmacy.
[2024-12-07 23:23] VITALS: BP 127/62; PULSE 79; RESP 16; TEMP 36.4; O2SAT 94
[2024-12-07] MEDS: Melatonin 3 MG TABLET 6 MG PO (23:34)
[2024-12-08] VITALS (7 sets, daily range): BP systolic 131–144; BP diastolic 63–66; PULSE 67–74; RESP 16–20; TEMP 36–36.2; O2SAT 94–95
[2024-12-08] MEDS: chlordiazePOXIDE HCl 5 MG CAPSULE PO ×2 (01:10→16:10)
[2024-12-08] MEDS: Omeprazole 40 MG CAPSULE.DR PO ×2 (05:52→16:10)
[2024-12-08] MEDS: busPIRone HCl 10 MG TABLET PO ×2 (07:33→19:56)
[2024-12-08] MEDS: 0.9 % Sodium Chloride Flush 3 ML SYRINGE IVFLUSH ×3 (07:33→19:57)
[2024-12-08] MEDS: Aspirin Enteric Coated 81 MG TABLET.DR PO (07:33)
[2024-12-08] MEDS: amLODIPine Besylate 5 MG TABLET PO (07:33)
[2024-12-08] MEDS: lisinopriL 20 MG TABLET PO (07:34)
[2024-12-08] MEDS: carvediloL 6.25 MG TABLET PO (07:34)
[2024-12-08] MEDS: metroNIDAZOLE/NS 500 MG/100 ML PIGGYBACK 100 MG IV (07:38)
--- NOTE | 2024-12-08 10:39 | MHC.CM.PN ---
CM MET WITH PT TO DISCUSS DC PLAN. SHE REPORTS SHE DOES NOT FEEL WELL ENOUGH TO DC TODAY SHE SAYS SHE WAS ONLY ABLE TO EAT A FEW BITES OF BREAKFAST AND IS FEELING WEAK SHE STATES SHE IS NOT INTERESTED IN GOING TO STR PT STATES RN IS AWARE OF HER CONCERNS AROUND DC
[2024-12-08] MEDS: ondansetron HCL 4 MG/2 ML VIAL IVPUSH (12:04)
--- NOTE | 2024-12-08 12:52 | HO.PM.IMPN ---
Subjective Subjective Date of Service: 12/08/24 Interval History: diverticulitis Review of Systems abd pain improvin could able to eat but says still having some pain no fevers Physical Exam Vital Signs: Vital Signs: Last Vital Signs Temp 97.0 F 12/08/24 11:42 Pulse 73 12/08/24 11:42 Resp 16 12/08/24 11:42 BP 141/66 H 12/08/24 11:42 Pulse Ox 94 12/08/24 11:42 O2 Del Method Room Air 12/08/24 11:42 BMI result Body Mass Index 25.7 General: AO X 3, no acute distress Resp: CTA bilateral CVS: S1,S2,RRR GI: +BS, nt Skin: No rash Neuro: motor grossly intact Psych: appropriate affect Objective Data Active Medications Acetaminophen (Acetaminophen 325 Mg Tablet) 650 mg PO Q6H PRN PRN Reason: Pain, Mild 1-3,fever,headache Last Admin: 12/06/24 21:56 Dose: 650 mg Documented By: LUCAS Albuterol Sulfate (Albuterol Sulfate 90 Mcg 8 Gm Inhaler) 2 puff INHALE Q6H PRN PRN Reason: Respiratory Distress Amlodipine Besylate (Amlodipine Besylate 5 Mg Tablet) 5 mg PO DAILY [facility]; Protocol Last Admin: 12/08/24 07:33 Dose: 5 mg Documented By: ANNE MARIE Aspirin (Aspirin Enteric Coated 81 Mg Tablet.) 81 mg PO DAILY [facility] Last Admin: 12/08/24 07:33 Dose: 81 mg Documented By: ANNE MARIE Atorvastatin Calcium (Atorvastatin Calcium 40 Mg Tablet) 40 mg PO BEDTIME [facility] Last Admin: 12/07/24 20:02 Dose: 40 mg Documented By: ALE Buspirone HCl (Buspirone Hcl 10 Mg Tablet) 10 mg PO BID [facility] Last Admin: 12/08/24 07:33 Dose: 10 mg Documented By: ANNE MARIE Calcium Carbonate (Calcium Carbonate 750 Mg Tab.Chew) 750 mg PO Q4H PRN PRN Reason: Heartburn Carvedilol (Carvedilol 12.5 Mg Tablet) 12.5 mg PO BID [facility]; Protocol Chlordiazepoxide HCl (Chlordiazepoxide Hcl 5 Mg Capsule) 5 mg PO TID PRN PRN Reason: anxiety Last Admin: 12/08/24 01:10 Dose: 5 mg Documented By: ALE Fluticasone Propionate (Fluticasone Propionate Nasal 16 Gm [place]) 1 spray NOSTRIL-B DAILY PRN PRN Reason: Allergic Symptoms Levofloxacin (Levofloxacin 750 Mg Tablet) 750 mg PO BEDTIME [facility] Lisinopril (Lisinopril 20 Mg Tablet) 20 mg PO DAILY [facility]; Protocol Last Admin: 12/08/24 07:34 Dose: 20 mg Documented By: ANNE MARIE Lorazepam (Lorazepam 0.5 Mg Tablet) 0.5 mg PO BID PRN PRN Reason: anxiety Magnesium Hydroxide (Milk Of Magnesia 30 Ml Oral.Susp) 30 ml PO DAILY PRN PRN Reason: Constipation Last Admin: 12/06/24 20:53 Dose: 30 ml Documented By: SOFIYA-GAYLADRHany Melatonin (Melatonin 3 Mg Tablet) 6 mg PO BEDTIME PRN PRN Reason: Insomnia Last Admin: 12/07/24 23:34 Dose: 6 mg Documented By: ALE Metronidazole (Metronidazole 500 Mg Tablet) 500 mg PO Q8H [facility] Omeprazole (Omeprazole 40 Mg Capsule.Dr) 40 mg PO BID@0630,1630 [facility] Last Admin: 12/08/24 05:52 Dose: 40 mg Documented By: ALE Ondansetron HCl (Ondansetron Odt 4 Mg Tab.Rapdis) 4 mg TRANSLINGU Q6H PRN PRN Reason: Nausea and Vomiting Oxycodone HCl (Oxycodone Hcl Immed Release 5 Mg Tablet) 5 mg PO Q6H PRN PRN Reason: Pain, Severe (Pain Scale 7-10) Paroxetine HCl (Paroxetine Hcl 40 Mg Tablet) 40 mg PO BEDTIME [facility] Last Admin: 12/07/24 20:02 Dose: 40 mg Documented By: ALE Sodium Chloride (0.9 % Sodium Chloride Flush 3 Ml Syringe) 3 ml IVFLUSH QSHIFT [facility] Last Admin: 12/08/24 07:33 Dose: 3 ml Documented By: ANNE MARIE Labs 12/06/24 10:08 12/05/24 04:32 Assessment and Plan (1) Acute diverticulitis: Status: Acute Plan 74 years old lady with PMH of Asthma, HLD, HTN, GERD, anxiery, Lupus, CVA, vertigo, hx adhesions post lysis among others presenting for abdominal pain and urine frequency. Acute uncomplicated diverticulitis not septic IVF IV Levofloxacin + Flagyl clear liquid diet trial Acute on chronic anemia w coffee ground emesis drop from 10.7 to 9.4-> 8.9-9.2 follow H&H Pantoprazole IV GI eval- egd /colo outpatient in 6-8 weeks: due to- i) anemia, ii) atypical colon wall thickness and iii) follow up diverticulitis. Hypertension--improving flacuating in 120-140's added low dose carvedilol today will slowly add -amlodipine, lisinopril if bp allows. History of TIA Posterior circulation, 05/2021, no residual, clinical diagnosis, negative MRI Continue Lipitor, added aspirin back as per Gi. Mood disorder Continue BuSpar, ativan Mild intermittent asthma Albuterol as needed History of cutaneous lupus In remission DVT prophylaxis SCDs Full Code Quality Stroke Does the patient have a stroke diagnosis?: No VTE Prior VTE?: No VTE Risk Level:: Medical - moderate - high VTE Device Contraindication: N/A - Device Ordered VTE Drug Contraindication: Treatment Not Indicated
[2024-12-08] MEDS: metroNIDAZOLE 500 MG TABLET PO ×2 (16:10→23:30)
[2024-12-08] MEDS: Ondansetron ODT 4 MG TAB.RAPDIS TRANSLINGU (17:56)
[2024-12-08] MEDS: Atorvastatin Calcium 40 MG TABLET PO (19:56)
[2024-12-08] MEDS: carvediloL 12.5 MG TABLET PO (19:56)
[2024-12-08] MEDS: PARoxetine HCL 40 MG TABLET PO (19:56)
[2024-12-08] MEDS: levoFLOXacin 750 MG TABLET PO (19:56)
[2024-12-08] MEDS: LORazepam 0.5 MG TABLET PO (20:02)
[2024-12-09] VITALS: BP 126/60; PULSE 70; RESP 18; TEMP 37; O2SAT 93
[2024-12-09] MEDS: chlordiazePOXIDE HCl 5 MG CAPSULE PO (00:05)
[2024-12-09] MEDS: Melatonin 3 MG TABLET 6 MG PO (00:05)
[2024-12-09] MEDS: Ondansetron ODT 4 MG TAB.RAPDIS TRANSLINGU (03:36)
[2024-12-09 04:00] VITALS: BP 142/60; PULSE 77; RESP 18; TEMP 36.9; O2SAT 97
[2024-12-09] MEDS: Omeprazole 40 MG CAPSULE.DR PO (05:45)
[2024-12-09] MEDS: oxyCODONE HCl Immed Release 5 MG TABLET PO (05:49)
[2024-12-09 07:36] VITALS: BP 140/67; PULSE 76; RESP 16; TEMP 36.4; O2SAT 95
[2024-12-09] MEDS: 0.9 % Sodium Chloride Flush 3 ML SYRINGE IVFLUSH (07:53)
[2024-12-09 07:54] VITALS: BP 140/67; PULSE 76
[2024-12-09] MEDS: carvediloL 12.5 MG TABLET PO (07:54)
[2024-12-09] MEDS: Aspirin Enteric Coated 81 MG TABLET.DR PO (07:54)
[2024-12-09] MEDS: busPIRone HCl 10 MG TABLET PO (07:54)
[2024-12-09] MEDS: lisinopriL 20 MG TABLET PO (07:54)
[2024-12-09] MEDS: metroNIDAZOLE 500 MG TABLET PO (07:54)
[2024-12-09] MEDS: amLODIPine Besylate 5 MG TABLET PO (07:54)
[2024-12-09] MEDS: LORazepam 0.5 MG TABLET PO (11:01)
[2024-12-09 11:18] VITALS: BP 139/60; PULSE 81; RESP 16; TEMP 36.4; O2SAT 94
--- NOTE | 2024-12-09 11:51 | P.DS_ITS ---
DS: Providers Provider Date of Service: 12/09/24 Date of admission: 12/05/24 01:00 Date of discharge: 12/09/24 Primary care physician: Arnulfo Villalba MD Consults: 12/05/24 01:00 Consult to Gastroenterology Routine Consulting Provider: Nevin Cifuentes Reason for consultation: Coffee ground emesis, anemia Attending physician on discharge: Bessie Ashraf Discharging clinician: Bessie Ashraf DS: Diagnosis Discharge Diagnosis (1) Acute diverticulitis: Status: Acute DS: Summary Hospital Course Hospital Course: Hpi:74 years old lady with PMH of Asthma, HLD, HTN, GERD, anxiery, Lupus, CVA, vertigo, hx adhesions post lysis among others presenting for abdominal pain and urine frequency. The patient was treated for UTI recently finishing antibiotics couple days ago. reporting lower abdominal pain with chills, nausea but no fever or diarrhea. No chest pain, palpitations, diarrhea. She had largy coffee ground emesis in waiting room and 2 more incidents in ED. CT GI Bleed protocol was done with no evidence of acute bleeding but showed evidence of diverticulitis. Started on IV antibiotics, fluids and admitted for further work up and management. Hospital course: 74 years old lady with PMH of Asthma, HLD, HTN, GERD, anxiery, Lupus, CVA, vertigo, hx adhesions post lysis among others presenting for abdominal pain and urine frequency:cta bd showed-possible diverticulitis ,so patient was admitted for Acute uncomplicated diverticulitis and Acute on chronic anemia w coffee ground emesis : started on ivf ,h/h monitering ,iv antibiotics and bowel rest: with above management patient seems to be improved significantly -will be going home with po antibiotics levquin and flagyl for 3 days. patient denies any urinary symptoms ,urine cultures -klebsiela ([id number] cfu/ml),enetroccoccus faecalis ([id number]/ml)-both senstive to quinloes . htn: blood pressure meds adjusted due to flacutating bp:coreg 12.5 mg po daily, continue amlodipine and hold lisinopril until seen by pcp -if needed for bp and consider restarting outpatient. Acute on chronic anemia w coffee ground emesis :started on iv ppi ,and h/h monitered (trend 10.7 to 9.4-> 8.9-9.2) ,seen by GI: recomended to complete antibiotics and will need egd /colo outpatient in 6-8 weeks: due to- i) anemia, ii) atypical colon wall thickness and iii) follow up diverticulitis. patient need to follow up with dr cifuentes 's office. plan: moniter cbc Complete Levaquin 750 mg q.day and Flagyl 500 mg Q 8 hour for 3 days. oxycodone 5 mg tab (limited 10 tabs given) zofran prn also given patient also asked for her chlordiazepoxide -limited supply given 15 tabs ,she said she is seeing her pcp next week. blood pressure meds adjusted due to flacutating bp:coreg 12.5 mg po daily, continue amlodipine and hold lisinopril until seen by pcp -if needed for bp and consider restarting outpatient. Follow-up with GI Dr. Cifuentes as office in 6-8 weeks. If new GI bleeding or GI symptoms go to nearest emergency room Above management discussed with the patient detail length she understand and in agreement with the above plan, time spent 40 minute. Time Attestation Total time managing care of this patient today: 40 mintues. Discharge Coordination Time (in mins): 40 min Quality: Safe Use of Opioids Does Pt have an Active Cancer Diagnosis on the Problem List?: No Quality: Stroke Does the patient have a stroke diagnosis?: No Physical Exam Vital Signs: Vital Signs: Last Vital Signs Temp 97.5 F 12/09/24 11:18 Pulse 81 12/09/24 11:18 Resp 16 12/09/24 11:18 BP 139/60 12/09/24 11:18 Pulse Ox 94 12/09/24 11:18 O2 Del Method Room Air 12/09/24 11:18 BMI result Body Mass Index 25.7 General: AO X 3, no acute distress Resp: CTA bilateral CVS: S1,S2,RRR GI: +BS, nt,bs present , no rebound or guarding Skin: No rash Neuro: motor grossly intact Psych: appropriate affect DS: Data Data Completed and Pending Completed studies during hospitalization [Text1]: Procedures Inspection of Upper Intestinal Tract, Via Natural or Artificial Opening Endoscopic (04/04/23) Release Peritoneum, Percutaneous Endoscopic Approach (09/13/24) Repair Diaphragm, Percutaneous Endoscopic Approach (09/13/24) Transfusion of Nonautologous Red Blood Cells into Peripheral Vein, Percutaneous Approach (04/04/23) Imaging CT scan - abdomen: My impression: IMPRESSION: No CT evidence of active GI bleed. Colonic diverticulosis with bowel wall thickening of the colon concerning for acute diverticulitis. Correlation with colonoscopy findings as indicated. Additional findings as above. Discharge Plan Discharge Anticipated Discharge Date/Time: 12/08/24 11:00 Patient Disposition: Home, Self-Care Discharge Diagnosis: acute diverticulitis, and anemia Referrals: Arnulfo Villalba MD [Primary Care Provider] - 1 Week Nevin Cifuentes MD [Physician] - 4 Weeks Discharge Medications: New levofloxacin 750 mg Tablet 750 mg PO BEDTIME Qty: 3 0RF oxycodone 5 mg Tablet 5 mg PO Q6H PRN (Reason: Pain, Severe (Pain Scale 7-10)) Qty: 10 0RF Rx Instructions: Partial Fill upon patient request. ondansetron 4 mg Tablet,Disintegrating 4 mg translingual Q6H PRN (Reason: Nausea And Vomiting) Qty: 10 0RF metronidazole 500 mg tablet 500 mg PO Q8H 3 Days Qty: 9 0RF Continued lorazepam 0.5 mg tablet 0.5 mg PO BID PRN (Reason: anxiety) Qty: 20 1RF atorvastatin 40 mg Tablet 40 mg PO BEDTIME Qty: 30 0RF Slow-Mag 71.5 mg tablet,delayed release (DR/EC) 1 tab PO DAILY amlodipine 5 mg Tablet 5 mg PO DAILY Qty: 30 0RF Protocol: Hold for SBP< HOLD for SBP < : 90 alendronate 70 mg tablet 70 mg PO TH@0900 Rx Instructions: Take 1 tab once weekly, 1st thing in the morning, on an empty stomach, with a large glass of water (at least 6 oz) and stay upright for 30 minutes omeprazole 40 mg capsule,delayed release(DR/EC) 40 mg PO DAILY@0630 chlordiazepoxide HCl 5 mg capsule 5 mg PO TID PRN (Reason: anxiety) Qty: 15 0RF fluticasone propionate 50 mcg/actuation spray,suspension 1 spray intranasal DAILY PRN (Reason: Allergic Symptoms) albuterol sulfate [Ventolin HFA] 90 mcg/actuation HFA aerosol inhaler 2 puff inhalation Q6H PRN (Reason: Respiratory Distress) aspirin [Adult Low Dose Aspirin] 81 mg tablet,delayed release (DR/EC) 81 mg PO DAILY acetaminophen [Tylenol Extra Strength] 500 mg tablet 1,000 mg PO Q6H PRN (Reason: Pain) buspirone 10 mg tablet 10 mg PO BID Qty: 180 1RF paroxetine HCl 40 mg tablet 40 mg PO BEDTIME 30 Days Qty: 30 2RF Changed carvedilol 25 mg tablet 12.5 mg PO BID Qty: 90 0RF Held lisinopril 20 mg tablet 20 mg PO DAILY Hold Instructions: Resume on 12/21/24. start if bp stay persistently in 140 mmhg. Discharge Orders: Discharge Order (Routine); Ordered 12/09/24 Ordered By: Bessie Ashraf Diet: Advance to usual diet Activity on Discharge: As tolerated Stand Alone Forms: Patient Portal Discharge page Print Language: Hebrew Other Ambulatory Orders: Complete Blood Count no Diff (Routine) Timeframe: 1 Week Facility: [facility] - Location: Laboratory Ordered By: Bessie Ashraf Care Plan Goals: 74 years old lady with PMH of Asthma, HLD, HTN, GERD, anxiery, Lupus, CVA, vertigo, hx adhesions post lysis among others presenting for abdominal pain and urine frequency: patient was admitted for Acute uncomplicated diverticulitis and Acute on chronic anemia w coffee ground emesis : started on ivf ,h/h monitering ,iv antibiotics and bowel rest: with above management patient seems to be improved significantly -will be going home with po antibiotics levquin and flagyl for 3 days. htn: blood pressure meds adjusted due to flacutating bp:coreg 12.5 mg po daily, continue amlodipine and hold lisinopril until seen by pcp -if needed for bp and consider restarting outpatient. Acute on chronic anemia w coffee ground emesis :started on iv ppi ,and h/h monitered (trend 10.7 to 9.4-> 8.9-9.2) ,seen by GI: recomended to complete antibiotics and will need egd /colo outpatient in 6-8 weeks: due to- i) anemia, ii) atypical colon wall thickness and iii) follow up diverticulitis. patient need to follow up with dr cifuentes 's office. Health Concerns: as above. Plan of Treatment: moniter cbc Complete Levaquin 750 mg q.day and Flagyl 500 mg Q 8 hour for 3 days. blood pressure meds adjusted due to flacutating bp:coreg 12.5 mg po daily, continue amlodipine and hold lisinopril until seen by pcp -if needed for bp and consider restarting outpatient. Follow-up with GI Dr. Cifuentes as office in 6-8 weeks. If new GI bleeding or GI symptoms go to nearest emergency room Assessment: as above. Discharge Date/Time: 12/09/24 12:33
== END 2024-12-09 12:33 | disposition home or self-care (01) | DRG 379 ==
LOC: HO.ED 18:04 → HO.EDOVER 12-05 01:10 → HO.S3 12-05 08:33
PROVIDERS: Nurse Practitioner Family; Physician Assistant; Admitting Provider Student in an Organized Health Care Education/Training Program; Emergency Provider Emergency Medicine; PCP Internal Medicine; Visit Provider Internal Medicine
DX: K57.33 Diverticulitis of large intestine without perforation or abscess with bleeding (principal); J45.20 Mild intermittent asthma, uncomplicated; I10 Essential (primary) hypertension; F39 Unspecified mood [affective] disorder; D64.9 Anemia, unspecified; L93.0 Discoid lupus erythematosus; Z20.822 Contact with and (suspected) exposure to COVID-19; Z86.73 Personal history of transient ischemic attack (TIA), and cerebral infarction without residual deficits; Z79.82 Long term (current) use of aspirin; Z79.899 Other long term (current) drug therapy
CPT/HCPCS: 0241U; 36415; 74178; 80048; 80053; 81001; 82272; 85014; 85018; 85025; 85027; 85610; 86850; 86900; 86901; 87086; 87088; 87186; 97161; 99285; J1836; J1956; J2270; J2405; J2470; J7120; Q9967

== ENCOUNTER → 2024-12-04 17:16 | Outpatient (BNV) | payer MEDICARE, SELFPAY | PROVIDERS: Emergency Provider Emergency Medicine; PCP Internal Medicine; Visit Provider Nuclear Medicine | DX: K57.30 Diverticulosis of large intestine without perforation or abscess without bleeding (principal) | CPT/HCPCS: 74178 ==

== ENCOUNTER → 2024-12-04 18:03 | Outpatient (BNV) | payer MEDICARE, SELFPAY | PROVIDERS: Emergency Provider Emergency Medicine; PCP Internal Medicine; Visit Provider Student in an Organized Health Care Education/Training Program | DX: K57.92 Diverticulitis of intestine, part unspecified, without perforation or abscess without bleeding (principal); D64.9 Anemia, unspecified | CPT/HCPCS: 99222; 99232 ==

== ENCOUNTER → 2024-12-05 01:00 | Outpatient (BNV) | payer MEDICARE, SELFPAY | PROVIDERS: Admitting Provider Student in an Organized Health Care Education/Training Program; Emergency Provider Emergency Medicine; PCP Internal Medicine; Visit Provider Internal Medicine | DX: D64.9 Anemia, unspecified (principal); K57.92 Diverticulitis of intestine, part unspecified, without perforation or abscess without bleeding; K63.9 Disease of intestine, unspecified; K92.0 Hematemesis | CPT/HCPCS: 99222 ==

== ENCOUNTER 2024-12-16 11:38 | Outpatient (REF) | payer MEDICARE, SELFPAY ==
[2024-12-16 12:18] LABS: MANUAL DIFF FLAG NO
--- OUTSIDE RECORDS SUMMARY | 2024-12-16 12:23 | XMS_ITS ---
Author Organization Arnulfo Villalba MD Address [address] [place] [phone] Care Team Providers Care Board Of Directors Name Role Phone Arnulfo Villalba Primary Care Provider REASON FOR VISIT discharge Encounters Encounter Location Date Provider Diagnosis Arnulfo Villalba MD [address] [place] [address] [address] [place] [phone] 12/12/2024 Arnulfo Villalba Plan Of Treatment Next Appt Details Provider Name:Arnulfo crowley, 12/23/2024 02:00:00 PM, [address] [place] [address], [phone], Provider Name:Arnulfo crowley, 02/23/2025 10:45:00 AM, [address] [place] [address], [phone], Provider Name:Arnulfo crowley, 05/19/2025 07:15:00 AM, [address] [place] [address], [phone], Provider Name:Arnulfo crowley, 05/26/2025 10:45:00 AM, [address] [place] [address], [phone], Provider Name:Arnulfo crowley, 11/23/2025 08:15:00 AM, [address] [place] [address], [phone], Provider Name:Arnulfo Pritchett carline, 11/30/2025 11:00:00 AM, [address], [address], [place], [place], [phone], Progress Notes * Renata FULTON MDOB:[birth year] (74 yo F)Acc No.[id number]:12/12/2024 Patient:?Renata FULTON M :1950???Age:74 Y???Sex:Female Address:[address] [place] [phone] * true * Date:? Generated for Rosi wright/Cole/eTmichaelsmitting on:?12/16/2024 12:23 PM EST
--- OUTSIDE RECORDS SUMMARY | 2024-12-16 12:23 | XMS_ITS ---
Author Organization Arnulfo Villalba MD Address [address] [place], [place] [phone] Care Team Providers Care Tax Specialist Name Role Phone Arnulfo Villalba Primary Care Provider [phone] Allergies Allergen (clinical drug ingredient) Drug/Non Drug [...] kg/m2 11/25/2024 weight is down 3 pounds [facility] 11-11-24 Encounters Encounter Location Date Provider Diagnosis Arnulfo Villalba MD [address] [facility] [address] [place], [place] [phone] 11/25/2024 Arnulfo Villalba Dysthymic disorder F34.1 ; [...] Follow Up: 3 Months, Reason: Provider Name:Arnulfo Pritchett ier, 12/23/2024 02:00:00 PM, [address] [place] [address], [address] [place] [address], [phone], Provider Name:Arnulfo castellonr, 02/23/2025 10:45:00 AM, [address] [place] [address], [address], [phone], Provider Name:Arnulfo castellonr, 05/19/2025 07:15:00 AM, [address] [place] [address], [address] [place] [address], [phone], Provider Name:Arnulfo castellonr, 05/26/2025 10:45:00 AM, [address] [place] [address], [address] [place] [address], [phone], Provider Name:Arnulfo castellonr, 11/23/2025 08:15:00 AM, [address] [place] [address], [address] [place] [address], [phone], Provider Name:Arnulfo Pritchett ier, 11/30/2025 11:00:00 AM, [address] [place] [address], [address], [phone], Progress Notes * Renata FULTON MDOB:[birth year] (74 yo F)Acc No.[id number]:11/25/2024 Progress Notes Patient:?Renata FULTON Provider:?Arnulfo Villalba MD :1950???Age:74 Y???Sex:Female D ate:11/25/2024 Address:[address] [place], [place] [phone] Subjective: * Chief Complaints: * ???Annual * HPI: ???Depression Screening:?PHQ-9?Little interest or pleasure [...] or any lesions of concern.?Denies?Photosensitivity.?Rash?denies.?Neurologic:?Dizziness?denies.?Fainting?denies.?Headache?denies.? * Medical History:? * Surgical History:? * Hospitalization/Major Diagno stic Procedure:? * Family History:?Father: dece ased 72 yrs.?Mother: [...] outside of the [place]: no. * Medications:?TakingLORazepam 0.5 MG Tablet 1 tablet at bedtime as needed Orally Once a day Tylenol Extra Strength 500 MG Tablet 1 tablet as needed Orally every 6 hrs ZyPREXA 2.5 MG Tablet 1 tablet Orally Once a day busPIRone HCl 10 MG Tablet 1 tablet Orally Twice a day chlordiazePOXIDE HCl 5 MG Capsule ( Drug) TAKE ONE CAPSULE BY MOUTH TWICE A DAY NEEDED Orally three times a day Vitamin D3 2000 UNIT Capsule 1 tablet Orally Once a day Ventolin HFA * 108 (90 Base) MCG/ACT Aerosol Solution 2 puffs as needed Inhalation every 4 hrs Fluticasone Propionate 50 MCG/ACT Suspension INSTILL ONE (1) SPRAY INTRANASALLY TWICE DAILY Nasally Twice a day Alendronate Sodium 70 MG Tablet TAKE 1 TABLET BY MOUTH 1 TIME PER WEEK Atorvastatin Calcium 40 MG Tablet take 1 tablet by mouth once daily Orally Once a day Lisinopril 20 MG Tablet TAKE 1 TABLET BY MOUTH ONCE DAILY amLODIPine Besylate 5 MG Tablet TAKE 1 TABLET BY MOUTH ONCE DAILY Orally Once a day Omeprazole 40 MG Capsule Delayed Release TAKE 1 CAPSULE BY MOUTH TWICE DAILY Orally Once a day Carvedilol 25 MG Tablet TAKE 1 TABLET BY MOUTH TWICE DAILY Orally Twice a day PARoxetine HCl 30 MG Tablet TAKE 1 TABLET BY MOUTH EVERY DAY Oral Once a day Taking LORazepam 0.5 MG Tablet 1 tablet at bedtime as needed Orally Once a day Taking Tylenol Extra Strength 500 MG Tablet 1 tablet as needed Orally every 6 hrs Taking ZyPREXA 2.5 MG Tablet 1 tablet Orally Once a day Taking busPIRone HCl 10 MG Tablet 1 tablet Orally Twice a day Taking chlordiazePOXIDE HCl 5 MG Capsule ( Drug) TAKE ONE CAPSULE BY MOUTH TWICE A DAY NEEDED Orally three times a day Taking Vitamin D3 2000 UNIT Capsule 1 tablet Orally Once a day Taking Ventolin HFA * 108 (90 Base) MCG/ACT Aerosol Solution 2 puffs as needed Inhalation every 4 hrs Taking Fluticasone Propionate 50 MCG/ACT Suspension INSTILL ONE (1) SPRAY INTRANASALLY TWICE DAILY Nasally Twice a day Taking Alendronate Sodium 70 MG Tablet TAKE 1 TABLET BY MOUTH 1 TIME PER WEEK Taking Atorvastatin Calcium 40 MG Tablet take 1 tablet by mouth once daily Orally Once a day Taking Lisinopril 20 MG Tablet TAKE 1 TABLET BY MOUTH ONCE DAILY Taking amLODIPine Besylate 5 MG Tablet TAKE 1 TABLET BY MOUTH ONCE DAILY Orally Once a day Taking Omeprazole 40 MG Capsule Delayed Release TAKE 1 CAPSULE BY MOUTH TWICE DAILY Orally Once a day Taking Carvedilol 25 MG Tablet TAKE 1 TABLET BY MOUTH TWICE DAILY Orally Twice a day Taking PARoxetine HCl 30 MG Tablet TAKE 1 TABLET BY MOUTH EVERY DAY Oral Once a day Not-Taking/PRNCephalexin 500 MG Capsule 1 capsule Orally twice a day Pyridium 100 MG Tablet 1 tablet after meals Orally Three times a day Aspir-Low 81 MG Tablet Delayed Release 1 tablet Orally Once a day Magnesium Oxide 400 MG Tablet 1 tablet with food orally BID hydroCHLOROthiazide 12.5 MG Tablet TAKE 1 TABLET BY MOUTH EVERY DAY IN THE MORNING FOR 90 DAYS Cephalexin 500 MG Capsule 1 capsule Orally 2 times a day Pyridium 100 MG Tablet 1 tablet after meals Orally Three times a day Medication List reviewed and reconciled with the patientNot-Taking/PRN Cephalexin 500 MG Capsule 1 capsule Orally twice a day Not-Taking/PRN Pyridium 100 MG Tablet 1 tablet after meals Orally Three times a day Not-Taking/PRN Aspir-Low 81 MG Tablet Delayed Release 1 tablet Orally Once a day Not-Taking/PRN Magnesium Oxide 400 MG Tablet 1 tablet with food orally BID Not-Taking/PRN hydroCHLOROthiazide 12.5 MG Tablet TAKE 1 TABLET BY MOUTH EVERY DAY IN THE MORNING FOR 90 DAYS Not-Taking/PRN Cephalexin 500 MG Capsule 1 capsule Orally 2 times a day Not-Taking/PRN Pyridium 100 MG Tablet 1 tablet after meals Orally Three times a day Medication List reviewed and reconciled with the patient * Allergies:?Codeine Phosphate Soluble: sweats,shakesantihistamines: shakes and sweatseggs: heartburnhydroCHLOROthiazide: hyponatremiayes[Allergies Verified] Objective: * Vitals:?Ht: 60, Wt: 133, BMI [...] mg/dL ?Urine Blood Negative Negative - ?Specific [place] - Urine 1.010 1.005-1.025 - ?Urine Protein [...] Abs Auto 0.000 0.0-0. 012 - X10*3/uL ???Lab:UA ClnCatch+Micro w/r flx Cult (Order Date - 11/18/2024) (Collection Date & Time - 11/18/2024 07:15 AM) ? Value Reference Range ?Color Urine Dark Yellow - ?Appearance Urine Cloudy - ?PH 7.0 5.0-9.0 - ?Glucose Urine UA Negative Neg ative - mg/dL ?Urine Blood Negative Negative - ?Specific [place] - Urine 1.010 1.005-1.025 - ?Urine Protein [...] Casts Urine 0-2 0-2 - /LPF ???Lab:Comprehensive [place]. P nilsa Fast (Order Date - 11/18/2024) [...] DIAGNO ?Imaging: US BREAST LEFT * Procedure Codes:?64135 TEST FOR BLOOD, FECES * Preventive Medicine:? ??Counseling:?Care goal follow-up plan:?Counseling for abnormal BMI provided?Yes,?Above Normal BMI Follow-up?Giving encouragement to exercise.? * Follow Up:?3 Months * * Sign off status: Completed true * Provider:?Arnulfo Villalba MD Date:?0 11/25/2024 Generated for Printi adriana/Cole/eTransmitting on:?12/16/2024 12:22 PM EST History and Physical Notes * [...] had two or more falls in the st year?: No Communication Needs Communication Needs Does [...]
--- OUTSIDE RECORDS SUMMARY | 2024-12-16 12:23 | XMS_ITS ---
Author Organization Arnulfo Villalba MD Address [address] [place], [place] [phone] Care Team Providers Care Drop Count Associate Name Role Phone Arnulfo Villalba Primary Care Provider Results Component Value Reference Range Notes UA ClnCatch+Micro w/rflx Cul t Reviewed date:11/29/2024 12:31:06 PM Interpretation: Performing Lab:[facility], [address] [place] [id number] Notes/Report: [id number] 0900 Urine, Clean Catch Color Urine Yellow Appearance Urine Clear PH 7.5 5.0-9.0 Glucose Urine UA Negative Negative mg/dL Urine Blood Negative Negative Specific [place] - Urine 1.010 1.005-1.025 Urine Protein Negative [...] Date Provider Diagnosis Arnulfo Villalba MD [address] [place] [phone] 11/29/2024 Arnulfo Villalba Urinary tract infection without hematuria, site unspecified N39.0 Assessments Encounter Date Diagnosis (ICD Code) Assessment Notes Treatment Notes Treatment Clinical Notes Section Notes 11/29/2024 Urinary tract infection without hematuria, site unspecified (ICD-10 - N39.0) Plan Of Treatment Next Appt Details Provider Name:Arnulfo crowley, 12/23/2024 02:00:00 PM, [address] [place] [address], [address], [place], [phone], Provider Name:Arnulforobert castellonr, 02/23/2025 10:45:00 AM, [address] [place] [address], [address] [facility], [place], [phone], Provider Name:Arnulforobert castellonr, 05/19/2025 07:15:00 AM, [address] [place] [address], [place] [address], [place], [phone], Provider Name:Arnulfo castellonr, 05/26/2025 10:45:00 AM, [address] [place] [address], [place] [address], [place], [phone], Provider Name:Arnulforobert castellonr, 11/23/2025 08:15:00 AM, [address] [place] [address], [place] [address], [place], [phone], Provider Name:Arnulfo castellonr, 11/30/2025 11:00:00 AM, [address] [place] [address], [place] [address], [place], [phone], Progress Notes * Renata FULTON MDOB:[birth year] (74 yo F)Acc No.[id number]:11/29/2024 Progress Note Patient:?Renata FULTON Provider:?Arnulfo Villalba MD :1950???Age:74 Y???Sex:Female D ate:11/29/2024 Address:[address] [place] [phone] Subjective: * Chief Complaints: * ???1. U/A [...] MD Date:?0 11/29/2024 Generated for Rosi wright/Cole/David on:?12/16/2024 12:23 PM EST
[2024-12-16 12:32] LABS: Basophils Percent Auto 0.7 % (0-2); Eosinophils Absolute Auto 0.1 X10*3/uL (0.0-0.4); Eosinophils Percent Auto 3.2 % (0-4); Hematocrit 30.6 % (37.0-47.0); Hemoglobin 10.2 g/dl (12.0-16.0); Lymphocytes Percent Auto 24.1 % (20-40); Mean Corpuscular HGB Conc 33.3 g/dl (31.0-35.0); Mean Corpuscular Hemoglobin 27.1 pg (27.0-33.0); Mean Corpuscular Volume 81.2 fL (80.0-98.0); Mean Platelet Volume 8.9 fL (9.4-12.3); Monocytes Absolute Auto 0.5 X10*3/uL (0.1-1.2); Monocytes Percent Auto 10.6 % (2-11); Neutrophils Absolute Auto 2.7 x10*3/uL (2.0-8.3); Neutrophils Percent Auto 61.4 % (45-73); Platelet Count 324 X10*3/uL (160-400); Red Blood Count 3.77 X10*6/uL (4.20-5.50); Red Cell Distribution Width 14.8 % (11.0-16.0); White Blood Count 4.3 X10*3/uL (4.8-10.8)
[2024-12-16 13:11] LABS: Erythrocyte Sedimentation Rate 23 MM/HR (0-20)
[2024-12-16 13:41] LABS: Alanine Aminotransferase 14 U/L (0-31); Albumin Level 3.9 g/dL (3.5-5.0); Alkaline Phosphatase 55 U/L (39-117); Anion Gap 11 (12-20); Aspartate Amino Transferase 26 U/L (5-31); Bilirubin Total 0.4 mg/dL (0.0-1.0); Blood Urea Nitrogen 8 mg/dL (9-16); C Reactive Protein < 0.10 mg/dL (< or = 0.50); Carbon Dioxide 26 mmol/L (22-29); Chloride 103 mmol/L (96-108); Estimated Glomerular Filt Rate > 60; Glucose Random 119 mg/dL (60-115); Magnesium 1.8 mg/dL (1.6-2.6); Potassium 2.8 mmol/L (3.3-5.1); Sodium 137 mmol/L (135-145); Total Protein 6.6 g/dL (6.5-8.0)
[2024-12-19 20:23] LABS: Complement C3 95 mg/dL (83-193)
[2024-12-19 22:28] LABS: Anti DNA DS Antibody <1 IU/mL
== END 2024-12-16 11:39 | disposition home or self-care (01) ==
LOC: HO.LAB 11:38
PROVIDERS: Student in an Organized Health Care Education/Training Program; PCP Internal Medicine; Visit Provider Internal Medicine
DX: E83.52 Hypercalcemia (principal); K92.0 Hematemesis; M32.9 Systemic lupus erythematosus, unspecified
CPT/HCPCS: 36415; 80053; 83735; 85025; 85027; 85652; 86140; 86160; 86225

== ENCOUNTER 2024-12-20 11:07 | Outpatient (REF) | payer MEDICARE, SELFPAY ==
[2024-12-20 11:59] LABS: Potassium 3.2 mmol/L (3.3-5.1)
--- OUTSIDE RECORDS SUMMARY | 2024-12-20 12:18 | XMS_ITS ---
Author Organization Arnulfo Villalba MD Address [address] [place] [phone] Care Team Providers Care Weigher Alloy Name Role Phone Arnulfo Villalba Primary Care Provider REASON FOR VISIT lab result Medications Medication SIG (Take, Route, Frequency, Duration) Notes Start Date End Date Status Klor-Con M20 20 MEQ 1 tablet with food Orally twice a day for 3 days then one per day for 7 days PLEASE DELIVER 12/16/2024 Active Encounters Encounter Location Date Provider Diagnosis Arnulfo Villalba MD [address] [place] [address] [place] [phone] 12/16/2024 Arnulfo Villalba Plan Of Treatment Medication Medication Name Sig Start Date Stop Date Notes Klor-Con M20 20 MEQ 1 tablet with food O rally twice a day for 3 days then one per day for 7 days 12/16/2024 PLEASE DELIVER Next Appt Details Provider Name:Arnulfo crowley, 12/23/2024 02:00:00 PM, [address] [place] [address], [address], [phone], Provider Name:Arnulfo crowley, 02/23/2025 10:45:00 AM, [address] [place] [address], [address], [phone], Provider Name:Arnulfo crowley, 05/19/2025 07:15:00 AM, [address] [place] [address], [phone], Provider Name:Arnulfo Pritchett ier, 05/26/2025 10:45:00 AM, [address], [address] [facility], [place], [phone], Provider Name:Arnulfo Pritchett ier, 11/23/2025 08:15:00 AM, [address] [place] [address], Suite [facility], [place], [phone], Provider Name:Arnulfo Pritchett ier, 11/30/2025 11:00:00 AM, [address] [place] [address], Suite [facility], [place], [phone], Progress Notes * Renata FULTON MDOB:[birth year] (74 yo F)Acc No.[id number]:12/16/2024 Patient:?Renata FULTON M :1950???Age:74 Y???Sex:Female Address:[address] [place] [phone] * Refills? Start Klor-Con M20 Tablet Extended Release, 20 MEQ, Orally, 10, 1 tablet with food, twice a day for 3 days then one per day, 7 days * true * Date:? Generated for Rosi wright/Cole/eTransmitting on:?12/20/2024 12:18 PM EST
--- OUTSIDE RECORDS SUMMARY | 2024-12-20 12:19 | XMS_ITS ---
Author Organization Arnulfo Villalba MD Address [address] [place] [phone] Care Team Providers Care Retail Event Assistant Name Role Phone Arnulfo Villalba Primary Care Provider [phone] REASON FOR VISIT discharge Encounters Encounter Location Date Provider Diagnosis Arnulfo Villalba MD [address] [place] [address] [place] [phone] 12/12/2024 Arnulfo Villalba Plan Of Treatment Next Appt Details Provider Name:Arnulfo crowley, 12/23/2024 02:00:00 PM, [address] [place] [address], [phone], Provider Name:Arnulfo crowley, 02/23/2025 10:45:00 AM, [address] [place] [address], [phone], Provider Name:Arnulfo crowley, 05/19/2025 07:15:00 AM, [address] [place] [address], [phone], Provider Name:Arnulfo crowley, 05/26/2025 10:45:00 AM, [address] [place] [address], [phone], Provider Name:Arnulfo crowley, 11/23/2025 08:15:00 AM, [address] [place] [address], [phone], Provider Name:Arnulfo Pritchett carline, 11/30/2025 11:00:00 AM, [address], [address], [place], [phone], Progress Notes * Renata FULTON MDOB:[birth year] (74 yo F)Acc No.[id number]:12/12/2024 Patient:?Renata FULTON M :1950???Age:74 Y???Sex:Female Address:[address] [place] [phone] * true * Date:? Generated for Rosi wright/Cole/eTmichaelsmitting on:?12/20/2024 12:18 PM EST
--- OUTSIDE RECORDS SUMMARY | 2024-12-20 12:19 | XMS_ITS ---
Author Organization Arnulfo Villalba MD Address [address] [place] [address] [phone] Care Team Providers Care Hoop Driving Machine Operator Helper Name Role Phone Arnulfo Villalba Primary Care Provider Results Component Value Reference Range Notes Potassium (Not yet reviewed by provider) Interpretation: Performing Lab:[facility], [address] [place] [phone] Notes/Report: Potassium 3.2 3.3-5.1 mmol/L REASON FOR VISIT Potassium Encounters Encounter Location Date Provider Diagnosis Arnulfo Villalba MD [address] [place] [phone] 12/20/2024 Arnulfo Villalba Hypokalemia E87.6 Assessments Encounter Date Diagnosis (ICD Code) Assessment Notes Treatment Notes Treatment Clinical Notes Section Notes 12/20/2024 Hypokalemia (ICD-10 - E87.6) Plan Of Treatment Pending Test Test Name Order Date Potassium 12/20/2024 Next Appt Details Provider Name:Arnulfo crowley, 12/23/2024 02:00:00 PM, [address] [place] [address], [address], [phone], Provider Name:Arnulfo crowley, 02/23/2025 10:45:00 AM, [address] [place] [address], [address], [phone], Provider Name:Arnulfo crowley, 05/19/2025 07:15:00 AM, [address] [place] [address], [address], [place], [phone], Provider Name:Arnulfo Pritchett ier, 05/26/2025 10:45:00 AM, [address] [facility], [address], [place], [phone], Provider Name:Arnulfo Pritchett ier, 11/23/2025 08:15:00 AM, [address] [facility], [address], [place], [phone], Provider Name:Arnulfo Pritchett ier, 11/30/2025 11:00:00 AM, [facility], [address], [place], [phone], Progress Notes * Renata FULTON MDOB:[birth year] (74 yo F)Acc No.[id number]:12/20/2024 Progress Note Patient:?Renata FULTON M Provider:?Arnulfo Villalba MD :1950???Age:74 Y???Sex:Female D ate:12/20/2024 Address:[address] [place] [phone] Subjective: * Chief Complaints: * ???1. Potassium. * Medical History:? Objective: * Vitals:? Assessment: * Assessment: 1.?Hypokalemia - E87.6??? Plan: * Treatment: * Procedure Codes:?88924 VENIP UNCT, ROUTINE* * * The named appointment provid er may or may not be the originator of this progress note, and it is not deemed complete until electronically signed by the appointment provider. Sign off status: Pending * Provider:?Arnulfo Villalba MD Date:?0 12/20/2024 Generated for Rosi wright/Cole/Diegosmitting on:?12/20/2024 12:18 PM EST
== END 2024-12-20 11:08 | disposition home or self-care (01) ==
LOC: HO.LNP 11:07
PROVIDERS: Visit Provider Internal Medicine
DX: E87.6 Hypokalemia (principal)
CPT/HCPCS: 84132

== ENCOUNTER 2024-12-22 10:14 | Outpatient (AMB) | payer MEDICARE, SELFPAY ==
--- NOTE | 2024-12-22 11:05 | A.OFFPSYCH_ITS ---
Intake Intake Visit Reasons: depression Allergies Codeine Sulfate Allergy (Severe, Verified 12/04/24 15:07) Anaphylaxis Antihistamine Allergy (Intermediate, Verified 12/04/24 15:07) Shakiness egg Allergy (Intermediate, Verified 12/04/24 15:07) Heartburn Sulfa (Sulfonamide Antibiotics) [SULFA (SULFONAMIDE ANTIBIOTICS)] Allergy (Intermediate, Verified 12/04/24 15:07) RASH diphenhydramine [From Benadryl] Allergy (Verified 12/04/24 15:07) sweats, palpitation cefuroxime Adverse Reaction (Verified 12/04/24 15:07) delerium ,paranoia HPI- Psychiatric Chief Complaint: depression HPI Narrative: Patient seen psychiatric follow-up. Patient recently been hospitalized now stable had abnormal electrolytes. Difficulty eating status post surgery. Mood has been depressed and anxious. Patient will not continue in counseling she is supposed to be getting VNA needs help with balance Past Psychiatric History: Patient has chronic history of panic somatic preoccupations mild depressive episodes. Patient has generally been doing okay she lives with her niece in the same building to family house. Some chronic anxiety related to chronic allergy symptoms have been encouraged visit to mail handler assistant or ENT which she has not pursued Librium has been cut in half over time history of panic attacks and anxiety generally stable with Paxil buspirone denies over medication does have some degree of chronic balance problems week and discussed possibility of physical therapy for strengthening and balance. She is also seen by rheumatology Mental Status Exam Mental Status Exam Narrative: Mental Status Exam Narrative: Appearance: Behavior: Cooperative appropriate psychomotor: Within normal limits Speech: Normal volume and prosody Thought process logical Thought content: Concerns regarding eating status post surgery concerns about her health her ability to eat concerns about her anxiety level Mood: Depressed Affect: constricted SI:denies HI:denies VH/AH:none Delusions: None Insight/judgment: Seems more reflective Memory/cog: Intact Assessment and Plan Assessment & Plan (1) Depression with anxiety: Status: Acute Code(s): F41.8 - Other specified anxiety disorders (2) Panic disorder [episodic paroxysmal anxiety]: Status: Acute Code(s): F41.0 - Panic disorder [episodic paroxysmal anxiety] Plan Patient seen in psychiatric follow-up she is quite depressed and anxious this w as after recent hospitalization and issues with the apartment her niece's renting above her discussed different treatment options with patient we just started on reach trying low-dose mirtazapine for help with insomnia and anxiety and depression Medications: New mirtazapine 7.5 mg PO BEDTIME 30 tabs 1RF Changed From lorazepam 0.5 mg PO BID PRN 20 tabs 1RF anxiety To lorazepam can cause balance problems 0.5 mg PO TID PRN 90 tabs 1RF anxiety Refilled buspirone 10 mg PO BID 180 tabs 1RF Counseling and coordination of Care Details-Self Mgmt counseling: Issues related to managing anxiety stressors related to illness Details: I spent [] minutes reviewing the record, seeing the patient and documenting in the medical record. Counseling provided to the patient/caregiver as outlined below. Addressed pat ient/caregiver concerns regarding current medication regime including effective adherence. Addressed patient/caregiver concerns regarding diagnosis and prognosis including accuracy of diagnosis, prognosis over time, impact of diagnosis. Addressed patient/caregiver concerns regarding impact of recent stressors. 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 Headache Sinusitis Asthma Generalized anxiety disorder Mood disorder, drug-induced Diaphragmatic hernia Panic disorder [episodic paroxysmal anxiety] Dysthymia Hypertension Diverticulitis CVA (cerebral vascular accident) Vertigo Tubular adenoma of colon Positive colorectal cancer screening using Cologuard test Irritable bowel syndrome with both constipation and diarrhea GERD (gastroesophageal reflux disease) Depression with anxiety HTN (hypertension), benign Lupus Surgical History S/P repair of paraesophageal hernia H/O wrist surgery Hx of colonoscopy History of cholecystectomy Family History Father CAD (coronary artery disease) Maternal Grandmother HTN (hypertension), benign Father No problems noted. 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 The mother is she has a brother with PTSD family history of depression She never no children Substance History: none Trauma History: NA Coding Level of Care Code Est Pt Level 3 (08055) Therapy 30m w/E&M (15338) Diagnoses Depression with anxiety F41.8 Panic disorder [episodic paroxysmal anxiety] F41.0
--- OUTSIDE RECORDS SUMMARY | 2024-12-22 11:20 | XMS_ITS ---
Author Organization Arnulfo Villalba MD Address [address] [place] [phone] Care Team Providers Care Masonry Teacher Name Role Phone Arnulfo Villalba Primary Care Provider Results Component Value Reference Range Notes Potassium Reviewed date:12/20/2024 12:33:25 PM Interpretation: Performing Lab:[facility], [address] [place] [phone] Notes/Report: Potassium 3.2 3.3-5.1 mmol/L REASON FOR VISIT Potassium Encounters Encounter Location Date Provider Diagnosis Arnulfo Villalba MD [address] [place] [address] [place] [phone] 12/20/2024 Arnulfo Villalba Hypokalemia E87.6 Assessments Encounter Date Diagnosis (ICD Code) Assessment Notes Treatment Notes Treatment Clinical Notes Section Notes 12/20/2024 Hypokalemia (ICD-10 - E87.6) Plan Of Treatment Next Appt Details Provider Name:Arnulfo crowley, 12/23/2024 02:30:00 PM, [address] [place] [address], [address] [place] [address], [phone], Provider Name:Arnulfo crowley, 02/23/2025 10:45:00 AM, [address] [place] [address], [address], [phone], Provider Name:Arnulfo corwley, 05/19/2025 07:15:00 AM, [address] [place] [address], [address], [phone], Provider Name:Arnulfo Pritchett ier, 05/26/2025 10:45:00 AM, [address] [facility], [address], [place], [phone], Provider Name:Arnulfo Pritchett ier, 11/23/2025 08:15:00 AM, [address] [facility], [place], [phone], Provider Name:Arnulfo Pritchett ier, 11/30/2025 11:00:00 AM, [facility], [place], [phone], Progress Notes * Renata FULTON MDOB:[birth year] (74 yo F)Acc No.[id number]:12/20/2024 Progress Note Patient:?Renata FULTON M Provider:?Arnulfo Villalba MD :1950???Age:74 Y???Sex:Female D ate:12/20/2024 Address:[address] [place] [phone] Subjective: * Chief Complaints: * ???1. Potassium. * Medical History:? Objective: * Vitals:? Assessment: * Assessment: 1.?Hypokalemia - E87.6 (Prim lamonte)??? Plan: * Treatment: * Procedure Codes:?14593 VENIP UNCT, ROUTINE* * * The named appointment provid er may or may not be the originator of this progress note, and it is not deemed complete until electronically signed by the appointment provider. Sign off status: Pending * Provider:?Arnulfo Villalba MD Date:?0 12/20/2024 Generated for Rosi wright/Cole/Diegosmitting on:?12/22/2024 11:20 AM EST
--- OUTSIDE RECORDS SUMMARY | 2024-12-22 11:20 | XMS_ITS ---
Author Organization Arnulfo Villalba MD Address [address] [place] [phone] Care Team Providers Care Field Crew Chief Name Role Phone Arnulfo Villalba Primary Care Provider [phone] REASON FOR VISIT discharge Encounters Encounter Location Date Provider Diagnosis Arnulfo Villalba MD [address] [place] [address] [address] [place] [phone] 12/12/2024 Arnulfo Villalba Plan Of Treatment Next Appt Details Provider Name:Arnulfo crowley, 12/23/2024 02:30:00 PM, [address] [place] [address], [phone], Provider Name:Arnulfo crowley, 02/23/2025 10:45:00 AM, [address] [place] [address], [phone], Provider Name:Arnulfo crowley, 05/19/2025 07:15:00 AM, [address] [place] [address], [phone], Provider Name:Arnulfo crowley, 05/26/2025 10:45:00 AM, [address] [place] [address], [phone], Provider Name:Arnulfo crowley, 11/23/2025 08:15:00 AM, [address] [place] [address], [phone], Provider Name:Arnulfo Pritchett carline, 11/30/2025 11:00:00 AM, [address], [address], [place], [phone], Progress Notes * Renata FULTON MDOB:[birth year] (74 yo F)Acc No.[id number]:12/12/2024 Patient:?Renata FULTON M :1950???Age:74 Y???Sex:Female Address:[address] [place] [phone] * true * Date:? Generated for Rosi wright/Cole/eTmichaelsmitting on:?12/22/2024 11:19 AM EST
--- OUTSIDE RECORDS SUMMARY | 2024-12-22 11:20 | XMS_ITS ---
Author Organization Arnulfo Villalba MD Address [address] [place] [phone] Care Team Providers Care Gas Controller Name Role Phone Arnulfo Villalba Primary Care Provider REASON FOR VISIT lab result Medications Medication SIG (Take, Route, Frequency, Duration) Notes Start Date End Date Status Klor-Con M20 20 MEQ 1 tablet with food Orally twice a day for 3 days then one per day for 7 days PLEASE DELIVER 12/16/2024 Active Encounters Encounter Location Date Provider Diagnosis Arnulfo Villalba MD [address] [place] [address] [place] [phone] 12/16/2024 Arnulfo Villalba Plan Of Treatment Medication Medication Name Sig Start Date Stop Date Notes Klor-Con M20 20 MEQ 1 tablet with food O rally twice a day for 3 days then one per day for 7 days 12/16/2024 PLEASE DELIVER Next Appt Details Provider Name:Arnulfo crowley, 12/23/2024 02:30:00 PM, [address] [place] [address], [address], [phone], Provider Name:Arnulfo crowley, 02/23/2025 10:45:00 AM, [address] [place] [address], [address], [phone], Provider Name:Arnulfo crowley, 05/19/2025 07:15:00 AM, [address] [place] [address], [phone], Provider Name:Arnulfo Pritchett ier, 05/26/2025 10:45:00 AM, [address], Suite [facility], [place], [phone], Provider Name:Arnulfo Pritchett ier, 11/23/2025 08:15:00 AM, [address] [place] [address], Suite [facility], [place], [phone], Provider Name:Arnulfo Pritchett ier, 11/30/2025 11:00:00 AM, [address] [place] [address], [address], [place], [phone], Progress Notes * Renata FULTON MDOB:[birth year] (74 yo F)Acc No.[id number]:12/16/2024 Patient:?Renata FULTON M :1950???Age:74 Y???Sex:Female Address:[address] [place] [phone] * Refills? Start Klor-Con M20 Tablet Extended Release, 20 MEQ, Orally, 10, 1 tablet with food, twice a day for 3 days then one per day, 7 days * true * Date:? Generated for Rosi wright/Cole/eTransmitting on:?12/22/2024 11:19 AM EST
== END 2024-12-22 11:19 | disposition home or self-care (01) ==
LOC: HO.HOP 10:14
PROVIDERS: PCP Internal Medicine; Visit Provider Psychiatry & Neurology Psychiatry
DX: F41.8 Other specified anxiety disorders (principal); F41.0 Panic disorder [episodic paroxysmal anxiety]
CPT/HCPCS: 90833; 99213

== ENCOUNTER → 2024-12-22 10:14 | Outpatient (BNVA) | payer MEDICARE, SELFPAY | PROVIDERS: PCP Internal Medicine; Visit Provider Psychiatry & Neurology Psychiatry | DX: F41.8 Other specified anxiety disorders (principal); F41.0 Panic disorder [episodic paroxysmal anxiety] | CPT/HCPCS: 99212 ==

== ENCOUNTER 2024-12-23 14:53 | Outpatient (REF) | payer MEDICARE, SELFPAY ==
--- OUTSIDE RECORDS SUMMARY | 2024-12-23 15:02 | XMS_ITS ---
Author Organization Arnulfo Villalba MD Address [address] [place] [phone] Care Team Providers Care Depilatory Painter Name Role Phone Arnulfo Villalba Primary Care Provider REASON FOR VISIT lab result Medications Medication SIG (Take, Route, Frequency, Duration) Notes Start Date End Date Status Klor-Con M20 20 MEQ 1 tablet with food Orally twice a day for 3 days then one per day for 7 days PLEASE DELIVER 12/16/2024 Active Encounters Encounter Location Date Provider Diagnosis Arnulfo Villalba MD [address] [place] [address] [place] [phone] 12/16/2024 Arnulfo Villalba Plan Of Treatment Medication Medication Name Sig Start Date Stop Date Notes Klor-Con M20 20 MEQ 1 tablet with food O rally twice a day for 3 days then one per day for 7 days 12/16/2024 PLEASE DELIVER Next Appt Details Provider Name:Arnulfo crowley, 12/30/2024 09:30:00 AM, [address] [place] [address], [address], [phone], Provider Name:Arnulfo crowley, 01/20/2025 01:45:00 PM, [address] [place] [address], [address], [phone], Provider Name:Arnulfo crowley, 02/23/2025 10:45:00 AM, [address] [place] [address], [phone], Provider Name:Arnulfo Pritchett ier, 05/19/2025 07:15:00 AM, [address] [place] [address], Suite [facility], [place], [phone], Provider Name:Arnulfo Pritchett ier, 05/26/2025 10:45:00 AM, [address] [place] [address], Suite [facility], [place], [place], [phone], Provider Name:Arnulfo Pritchett ier, 11/23/2025 08:15:00 AM, [address] [place] [address], Suite [facility], [place], [place], [phone], Provider Name:Arnulfo Pritchett ier, 11/30/2025 11:00:00 AM, [address] [place] [address], Suite [facility], [place], [place], [phone], Progress Notes * Renata FULTON MDOB:[birth year] (74 yo F)Acc No.[id number]:12/16/2024 Patient:?Renata FULTON M :1950???Age:74 Y???Sex:Female Address:[address] [place] [phone] * Refills? Start Klor-Con M20 Tablet Extended Release, 20 MEQ, Orally, 10, 1 tablet with food, twice a day for 3 days then one per day, 7 days * true * Date:? Generated for Rosi wright/Cole/eTransmitting on:?12/23/2024 03:02 PM EST
--- OUTSIDE RECORDS SUMMARY | 2024-12-23 15:03 | XMS_ITS ---
Author Organization Arnulfo Villalba MD Address [address] [place], [place] [phone] Care Team Providers Care Fire Extinguisher Repairer Name Role Phone Arnulfo Villalba Primary Care Provider Allergies Allergen (clinical drug ingredient) Drug/Non Drug Allergy documented on EMR Reaction Allergy Type Onset Date Status Codeine Phosphate Soluble sweats,shakes Drug Allergy Active eggs (uncoded) heartburn Allergy Activ e antihistamines (uncoded) shakes and sweats Allergy Active hydrochlorothiazide hydroCHLOROthiazide hyponatremia D rug Allergy Active REASON FOR VISIT PH/TCM, Draw a Potassium, Needs PT and OT per her psych Medications Medication SIG (Take, Route, Frequency, Duration) Notes Start Date End Date Status busPIRone HCl 10 MG 1 tablet Orally Twice a day Active Omeprazole 40 MG TAKE 1 CAPSULE BY MOUTH TWICE DAILY Orally Once a day for 90 days Active Ventolin HFA * 108 (90 Base) MCG/ACT 2 puffs as needed Inhalation every 4 hrs 08/02/2021 Active Alendronate Sodium 70 MG TAKE 1 TABLET B Y MOUTH 1 TIME PER WEEK Active Fluticasone Propionate 50 MCG/ACT INSTILL ONE (1) SPRAY INTRANASALLY TWICE DAILY Nasally Twice a day for 90 days Active LORazepam 0.5 MG 1 tablet at bedtime as needed Orally Once a day Active Tylenol Extra Strength 500 MG 1 tablet as needed Orally every 6 hrs Active chlordiazePOXIDE HCl 5 MG ( Drug) TAKE O NE CAPSULE BY MOUTH TWICE A DAY NEEDED Orally three times a day Active ZyPREXA 2.5 MG 1 tablet Orally Once a day for 30 day(s) Active Vitamin D3 2000 UNIT 1 tablet Orally Once a day 01/03/2014 Active Klor-Con M20 20 MEQ 1 tablet with food Orally Once a day for 30 days PLEASE DELIVER 12/16/2024 Active Ondansetron Active Cephalexin 500 MG 1 capsule Orally 2 times a day for 5 day(s) 10/16/2022 Not-Taking Dicyclomine HCl 10 MG 1 capsule Orally 2 times a day for 30 days 12/23/2024 Active Pyridium 100 MG 1 tablet after meals Orally Three times a day for 2 day(s) 10/16/2022 Not-Taking hydroCHLOROthiazide 12.5 MG TAKE 1 TABLET BY MOUTH EVERY DAY IN THE MORNING FOR 90 DAYS Not-Taking Magnesium Oxide 400 MG 1 tablet with carlota d orally BID Not-Taking Cephalexin 500 MG 1 capsule Orally twice a day for 5 days 11/17/2024 Not-Taking Aspir-Low 81 MG 1 tablet Orally Once a day for 30 day(s) Not-Taking Pyridium 100 MG 1 tablet after meals Orally Three times a day for 3 days 11/17/2024 Not-Taking Lisinopril 20 MG TAKE 1 TABLET BY MOUTH ONCE DAILY Active Atorvastatin Calcium 40 MG take 1 tablet by mouth once daily Orally Once a day Active amLODIPine Besylate 5 MG TAKE 1 TABLET B Y MOUTH ONCE DAILY Orally Once a day Active PARoxetine HCl 30 MG TAKE 1 TABLET BY MOUTH EVERY DAY Oral Once a day Active Carvedilol 25 MG TAKE 1 TABLET BY MOUTH TWICE DAILY Orally Twice a day Active Problems Problem Type SNOMED Code ICD Code Onset Dates Problem Status W/U Status Risk Notes Problem [id number] Irritable bowel syndrome with diarrhea (K58.0) Active confirmed Vital Signs Blood pressure systolic 152 mm Hg 12/23/19 25 Blood pressure diastolic 84 mm Hg 025 Height 60 in 12/23/2024 Weight 127 lbs 12/23/2024 BMI 24.8 kg/m2 12/23/2024 weight is down 6 pounds [facility] e 11-25-24 Encounters Encounter Location Date Provider Diagnosis Arnulfo Villalba MD [address] [place] [address] [address] [place], [place] [phone] 12/23/2024 Arnulfo Villalba Hypokalemia E87.6 ; Chronic anemia D64.9 ; Generalized weakness R53.1 and Irritable bowel syndrome with diarrhea K58.0 Assessments Encounter Date Diagnosis (ICD Code) Assessment Notes Treatment Notes Treatment Clinical Notes Section Notes 12/23/2024 Hypokalemia (ICD-10 - E87.6) 12/23/2024 Chronic anemia (ICD-10 - D64.9) 12/23/2024 Generalized weakness (ICD-10 - R53.1) nurse navigator is getting physical therapy set up 12/23/2024 Irritable bowel syndrome with diarrhea (ICD-10 - K58.0) Plan Of Treatment Medication Medication Name Sig Start Date Stop Date Notes Klor-Con M20 20 MEQ 1 tablet with food O rally Once a day for 30 days 12/16/2024 PLEASE DELIVER Dicyclomine HCl 10 MG 1 capsule Orally 2 times a day for 30 days 12/23/2024 Treatment Notes Assessment Notes Generalized weakness nurse navigator is getting physical therapy set up Pending Test Test Name Order Date Potassium 12/23/2024 Future Test Test Name Order Date Complete Blood Count Auto Diff Next Appt Details Follow Up: 4 Weeks, Reason: Provider Name:Arnulfo crowley, 12/30/2024 09:30:00 AM, [address] [place] [address], [phone], Provider Name:Arnulfo crowley, 01/20/2025 01:45:00 PM, [address] [place] [address], [phone], Provider Name:Arnulfo crowley, 02/23/2025 10:45:00 AM, [address] [place] [address], [phone], Provider Name:Arnulfo crowley, 05/19/2025 07:15:00 AM, [address] [place] [address], [phone], Provider Name:Arnulfo crowley, 05/26/2025 10:45:00 AM, [address] [place] [address], [phone], Provider Name:Arnulfo crowley, 11/23/2025 08:15:00 AM, [address] [place], [place] [address] [place], [phone], Provider Name:Arnulfo Pritchett ier, 11/30/2025 11:00:00 AM, [address] [facility], [address], [place], [phone], Progress Notes * Renata FULTON MDOB:[birth year] (74 yo F)Acc No.[id number]:12/23/2024 Patient:?Renata FULTON M Provider:?Arnulfo Villalba MD :1950???Age:74 Y???Sex:Female D ate:12/23/2024 Address:[address] [place], [place] [id number] Subjective: * Chief Complaints: * ???1. PH/TCM. 2. Draw a Pota ssium. 3. Needs PT and OT per her psych. * HPI: ???Symptom(s):? still feeling weak and having trouble walking. * ROS:?General/Constitutional:?Denies?Chills.?Denies?Fatigue.?Denies?Fever.?Denies?Headache.?ENT:?Denies?Sore throat.?Respiratory:?Denies?Cough.?Denies?Shortness of breath at rest.?Denies?Shortness of breath with exertion.?Gastrointestinal:?Admits?Constipation.?Denies?Diarrhea.?Denies?Nausea.? * Medical History:?Refused col onoscopy 2013 2014 2015 2018 colonascopy 2020 with adenoma, cologard 2018; Colonoscopy 01/17/[address] Belkys Cruz - repeat 5 years w/FIT 1 & 3 yrs. * Medications:?Taking Ondanset christiano , Taking LORazepam 0.5 MG Tablet 1 tablet [...] EVERY DAY Oral Once a day , Taking Klor-Con M20 20 MEQ Tablet Extended Release 1 tablet with food Orally twice a day for 3 days then one per day , Notes to Pharmacist: PLEASE DELIVER, Not-Taking/PRN Cephalexin 500 MG Capsule 1 capsule [...] after meals Orally Three times a day * Allergies:?Codeine Phosphate Soluble: sweats,shakes, antihistamines: shakes and sweats, eggs: heartburn, hydroCHLOROthiazide: hyponatremia. Objective: * Vitals:?Ht: 60, Wt: 127, BMI :24.8, BP:152/84, Repeat BP:120/80, Wt-k.61. weight is down 6 pounds since 11-25-24. * Examination: ???General Examination: ?GENERAL APPEARANCE:?alert, well hydrated, in no distress.?SKIN:?good turgor.?HEART:?no murmurs, rubs, gallops, regular rate and rhythm.?LUNGS:?no wheezes, rales, rhonchi, good air movement.? Assessment: * Assessment: 1.?Hypokalemia - E87.6???2.? Chronic anemia - D64.9???3.?Generalized weakness - R53.1???4.?Irritable bowel syndrome with diarrhea - K58.0??? Plan: * Treatment: 2.?Generalized weakness? Refill Klor-Con M20 Tablet Extended Release, 20 MEQ, 1 tablet with food, Orally, Once a day, 30 days, 30 Tablet, Notes to Pharmacist: PLEASE DELIVER.?? Notes: nurse navigator is getting physical therapy set up?? 3.?Irritable bowel syndrome with diarrhea? Start Dicyclomine HCl Capsule, 10 MG, 1 capsule, Orally, 2 times a day, 30 days, 60 Capsule, Refills 3.?? * Procedure Codes:?25713 VENIP UNCT, ROUTINE* * Follow Up:?4 Weeks * * The named appointment provid er may or may not be the originator of this progress note, and it is not deemed complete until electronically signed by the appointment provider. Sign off status: Pending * Provider:?Arnulfo Villalba MD Date:?0 12/23/2024 Generated for Rosi wright/Cole/eTmichaelsmitting on:?12/23/2024 03:03 PM EST History and Physical Notes * HPI (History of Present Illness) Category Sub-Category Detail Notes Category Not es Symptom(s) still feeling w eak and having trouble walking Examination Category Sub-Category Detail Notes Category Not es General Examination GENERAL APPEARANCE: alert, w ell hydrated, in no distress HEART: no murmurs, rubs, ga llops, regular rate and rhythm LUNGS: no wheezes, rales, r honchi, good air movement SKIN: good turgor
--- OUTSIDE RECORDS SUMMARY | 2024-12-23 15:03 | XMS_ITS ---
Author Organization Arnulfo Villalba MD Address [address] [place] [phone] Care Team Providers Care Director Of Emergency Nursing Name Role Phone Arnulfo Villalba Primary Care Provider Results Component Value Reference Range Notes Potassium Reviewed date:12/20/2024 12:33:25 PM Interpretation: Performing Lab:[facility], [address] [place] [phone] Notes/Report: Potassium 3.2 3.3-5.1 mmol/L REASON FOR VISIT Potassium Encounters Encounter Location Date Provider Diagnosis Arnulfo Villalba MD [address] [place] [address] [place] [phone] 12/20/2024 Arnulfo Villalba Hypokalemia E87.6 Assessments Encounter Date Diagnosis (ICD Code) Assessment Notes Treatment Notes Treatment Clinical Notes Section Notes 12/20/2024 Hypokalemia (ICD-10 - E87.6) Plan Of Treatment Next Appt Details Provider Name:Arnulfo crowley, 12/30/2024 09:30:00 AM, [address] [place] [address], [address] [place] [address], [phone], Provider Name:Arnulfo crowley, 01/20/2025 01:45:00 PM, [address] [place] [address], [address], [phone], Provider Name:Arnulfo crowley, 02/23/2025 10:45:00 AM, [address] [place] [address], [address], [phone], Provider Name:Arnulfo Pritchett ier, 05/19/2025 07:15:00 AM, [facility], [address], [place], [phone], Provider Name:Arnulfo Pritchett ier, 05/26/2025 10:45:00 AM, [facility], [address], [place], [phone], Provider Name:Arnulfo Pritchett ier, 11/23/2025 08:15:00 AM, [facility], [address], [place], [phone], Provider Name:Arnulfo Pritchett ier, 11/30/2025 11:00:00 AM, [facility], [address], [place], [phone], Progress Notes * Renata FULTON MDOB:[birth year] (74 yo F)Acc No.[id number]:12/20/2024 Progress Note Patient:?Renata FULTON M Provider:?Arnulfo Villalba MD :1950???Age:74 Y???Sex:Female D ate:12/20/2024 Address:[address] [place] [phone] Subjective: * Chief Complaints: * ???1. Potassium. * Medical History:? Objective: * Vitals:? Assessment: * Assessment: 1.?Hypokalemia - E87.6 (Prim lamonte)??? Plan: * Treatment: * Procedure Codes:?72082 VENIP UNCT, ROUTINE* * * The named appointment provid er may or may not be the originator of this progress note, and it is not deemed complete until electronically signed by the appointment provider. Sign off status: Pending * Provider:?Arnulfo Villalba MD Date:?0 12/20/2024 Generated for Rosi wright/Cole/eTransmitting on:?12/23/2024 03:02 PM EST
[2024-12-23 15:13] LABS: Potassium 4.1 mmol/L (3.3-5.1)
== END 2024-12-23 14:54 | disposition home or self-care (01) ==
LOC: HO.LNP 14:53
PROVIDERS: Visit Provider Internal Medicine
DX: E87.6 Hypokalemia (principal)
CPT/HCPCS: 84132

== ENCOUNTER 2024-12-30 11:18 | Outpatient (REF) | payer MEDICARE, SELFPAY ==
[2024-12-30 11:20] LABS: MANUAL DIFF FLAG NO
[2024-12-30 11:45] LABS: Basophils Absolute Auto 0.1 X10*3/uL (0.0-0.2); Basophils Percent Auto 1.3 % (0-2); Eosinophils Absolute Auto 0.2 X10*3/uL (0.0-0.4); Eosinophils Percent Auto 3.2 % (0-4); Hemoglobin 10.5 g/dl (12.0-16.0); Imm Gran Abs Auto 0.01 X10*3/uL (0.00-0.03); Imm Gran Pct Auto 0.2 % (0.0-0.4); Lymphocytes Absolute Auto 1.3 X10*3/uL (1.2-4.9); Lymphocytes Percent Auto 28.7 % (20-40); Mean Corpuscular HGB Conc 30.9 g/dl (31.0-35.0); Mean Corpuscular Hemoglobin 26.7 pg (27.0-33.0); Mean Corpuscular Volume 86.5 fL (80.0-98.0); Mean Platelet Volume 9.4 fL (9.4-12.3); Monocytes Absolute Auto 0.3 X10*3/uL (0.1-1.2); Monocytes Percent Auto 6.7 % (2-11); Neutrophils Absolute Auto 2.8 x10*3/uL (2.0-8.3); Neutrophils Percent Auto 59.9 % (45-73); Platelet Count 320 X10*3/uL (160-400); Red Blood Count 3.93 X10*6/uL (4.20-5.50); White Blood Count 4.6 X10*3/uL (4.8-10.8)
[2024-12-30 11:55] LABS: Potassium 4.3 mmol/L (3.3-5.1)
--- OUTSIDE RECORDS SUMMARY | 2024-12-30 13:26 | XMS_ITS ---
Author Organization Arnulfo Villalba MD Address [address] [place], [place] [phone] Care Team Providers Care Senior Visual Designer Name Role Phone Arnulfo Villalba Primary Care Provider Allergies Allergen (clinical drug ingredient) Drug/Non Drug Allergy documented on EMR Reaction Allergy Type Onset Date Status Codeine Phosphate Soluble sweats,shakes Drug Allergy Active eggs (uncoded) heartburn Allergy Activ e antihistamines (uncoded) shakes and sweats Allergy Active hydrochlorothiazide hydroCHLOROthiazide hyponatremia D rug Allergy Active Results Component Value Reference Range Notes Potassium Reviewed date:12/23/2024 03:36:08 PM Interpretation: Performing Lab:[facility], [address] [place] [phone] Notes/Report: Potassium 4.1 3.3-5.1 mmol/L Slight Hemoly sis.Interpret result with caution. REASON FOR VISIT PH/TCM, Draw a Potassium, [...] Problem Status W/U Status Risk Notes Problem [id number] Irritable bowel syndrome with diarrhea (K58.0) Active confirmed Vital Signs Blood pressure systolic 152 mm Hg 12/23/19 25 Blood pressure diastolic 84 mm Hg 025 Height 60 in 12/23/2024 Weight 127 lbs 12/23/2024 BMI 24.8 kg/m2 12/23/2024 weight is down 6 pounds sin e 11-25-24 Encounters Encounter Location Date Provider Diagnosis Arnulfo Villalba MD [address] [place] [address] [place] [phone] 12/23/2024 Arnulfo Villalba Hypokalemia E87.6 ; Chronic anemia D64.9 ; Generalized weakness R53.1 and Irritable bowel syndrome with diarrhea K58.0 Assessments Encounter Date Diagnosis (ICD Code) Assessment Notes Treatment Notes Treatment Clinical Notes Section Notes 12/23/2024 Hypokalemia (ICD-10 - E87.6) pending labs 12/23/2024 Chronic anemia (ICD-10 - D64.9) pending labs, will cntinue to monitor 12/23/2024 Generalized weakness (ICD-10 - R53.1) nurse navigator is getting physical therapy set up 12/23/2024 Irritable bowel syndrome with diarrhea (ICD-10 - K58.0) patient verbalized undertstanding of medication and directions for use Plan Of Treatment Medication Medication Name Sig Start Date Stop Date Notes Klor-Con M20 20 MEQ 1 tablet with food O rally Once a day for 30 days 12/16/2024 PLEASE DELIVER Dicyclomine HCl 10 MG 1 capsule Orally 2 times a day for 30 days 12/23/2024 Treatment Notes Assessment Notes Hypokalemia pending labs Chronic anemia pending labs, will c ntinue to monitor Generalized weakness nurse navigator is getting physical therapy set up Irritable bowel syndrome with diarrhea p atient verbalized undertstanding of medication and directions for use Future Test Test Name Order Date Complete Blood Count Auto Diff Next Appt Details Follow Up: 4 Weeks, Reason: Provider Name:Arnulfo crowley, 01/20/2025 01:45:00 PM, [address] [place] [address], [address] [place] [address], [phone], Provider Name:Arnulfo crowley, 02/23/2025 10:45:00 AM, [address] [place] [address], [address], [phone], Provider Name:Arnulfo crowley, 05/19/2025 07:15:00 AM, [address] [place] [address], [address], [phone], Provider Name:Arnulfo Pritchett carline, 05/26/2025 10:45:00 AM, [address], [address], [place], [phone], Provider Name:Arnulfo Pritchett ravinderrodger, 11/23/2025 08:15:00 AM, [address], [address], [place], [phone], Provider Name:Arnulfo Pritchett ravinderr, 11/30/2025 11:00:00 AM, [address], [address], [place], [phone], Progress Notes * Renata FULTON MDOB:[birth year] (74 yo F)Acc No.[id number]:12/23/2024 Patient:?Renata FULTON M Provider:?Arnulfo Villalba MD :1950???Age:74 Y???Sex:Female D ate:12/23/2024 Address:[address] [place] [phone] Subjective: * Chief Complaints: * ???PH/TCMDraw a PotassiumNee ds PT and OT per her psych * HPI: ???Symptom(s):?patient is a 74 yo female here for follow up from recent hospitalization. FDischarge summary has been reviewed and medications reconcilled. still feeling weak and having trouble walking. * ROS:?General/Constitutional:?Denies?Chills.?Denies?Fatigue.?Denies?Fever.?Denies?Headache.?ENT:?Patient denies?decreased sense of smell, any loss of taste, sore throat.?Denies?Sore throat.?Respiratory:?Denies?Cough.?Denies?Shortness of breath at rest.?Denies?Shortness of breath with exertion.?Gastrointestinal:?Admits?Constipation.?Denies?Diarrhea.?Denies?Nausea.?Musculoskeletal:?Patient denies?muscle aches.?Peripheral Vascular:?Patient denies?red and blue toes.? * Medical History:? * Surgical History:? * Hospitalization/Major Diagno stic Procedure:? * Medications:?TakingOndansetr on LORazepam 0.5 MG Tablet 1 tablet at bedtime as needed Orally Once a day Tylenol Extra Strength 500 MG Tablet 1 tablet as needed Orally every 6 hrs ZyPREXA 2.5 MG Tablet 1 tablet Orally Once a day chlordiazePOXIDE HCl 5 MG Capsule [...] TABLET BY MOUTH 1 TIME PER WEEK Omeprazole 40 MG Capsule Delayed Release TAKE 1 CAPSULE BY MOUTH TWICE DAILY Orally Once a day busPIRone HCl 10 MG Tablet 1 tablet Orally Twice a day Atorvastatin Calcium 40 MG Tablet take 1 tablet by mouth once daily Orally Once a day Lisinopril 20 MG Tablet TAKE 1 TABLET BY MOUTH ONCE DAILY amLODIPine Besylate 5 MG Tablet TAKE 1 TABLET BY MOUTH ONCE DAILY Orally Once a day Carvedilol 25 MG Tablet TAKE 1 TABLET BY MOUTH TWICE DAILY Orally Twice a day PARoxetine HCl 30 MG Tablet TAKE 1 TABLET BY MOUTH EVERY DAY Oral Once a day Klor-Con M20 20 MEQ Tablet Extended Release 1 tablet with food Orally twice a day for 3 days then one per day , Notes to Pharmacist: PLEASE DELIVERTaking Ondansetron Taking LORazepam 0.5 MG Tablet 1 tablet at bedtime as needed Orally Once a day Taking Tylenol Extra Strength 500 MG Tablet 1 tablet as needed Orally every 6 hrs Taking ZyPREXA 2.5 MG Tablet 1 tablet Orally Once a day Taking chlordiazePOXIDE HCl 5 MG [...] BY MOUTH 1 TIME PER WEEK Taking Omeprazole 40 MG Capsule Delayed Release TAKE 1 CAPSULE BY MOUTH TWICE DAILY Orally Once a day Taking busPIRone HCl 10 MG Tablet 1 tablet Orally Twice a day Taking Atorvastatin Calcium 40 MG Tablet take 1 tablet by mouth once daily Orally Once a day Taking Lisinopril 20 MG Tablet TAKE 1 TABLET BY MOUTH ONCE DAILY Taking amLODIPine Besylate 5 MG Tablet TAKE 1 TABLET BY MOUTH ONCE DAILY Orally Once a day Taking Carvedilol 25 MG Tablet TAKE 1 TABLET BY MOUTH TWICE DAILY Orally Twice a day Taking PARoxetine HCl 30 MG Tablet TAKE 1 TABLET BY MOUTH EVERY DAY Oral Once a day Taking Klor-Con M20 20 MEQ Tablet Extended Release 1 tablet with food Orally twice a day for 3 days then one per day , Notes to Pharmacist: PLEASE DELIVERNot- Taking/PRNCephalexin 500 MG Capsule 1 capsule Orally twice [...] meals Orally Three times a day Not-Taking/PRN Cephalexin 500 MG Capsule 1 capsule [...] times a day * Allergies:?Codeine Phosphate Soluble: sweats,shakesantihistamines: shakes and sweatseggs: heartburnhydroCHLOROthiazide: hyponatremiayes[Allergies Verified] Objective: * Vitals:?Ht: 60, Wt: 127, BMI :24.8, BP:152/84, Repeat BP:120/80, Wt-k.61. weight is down 6 pounds since 11-25-24. * Examination: ???General Examination: ?GENERAL APPEARANCE:?alert, well hydrated, in no distress.?SKIN:?good turgor.?HEART:?no murmurs, rubs, gallops, regular rate and rhythm.?LUNGS:?no wheezes, rales, rhonchi, good air movement.? Assessment: * Assessment: 1.?Hypokalemia - E87.6 (Prim lamonte)???2.?Chronic anemia - D64.9???3.?Generalized weakness - R53.1???4.?Irritable bowel syndrome with diarrhea - K58.0??? Plan: * Treatment: 2.?Chronic anemia? Notes: pending labs, will cntinue to monitor?? 3.?Generalized weakness? Refill Klor-Con M20 Tablet Extended Release, 20 MEQ, 1 tablet with food, Orally, Once a day, 30 days, 30 Tablet, Notes to Pharmacist: PLEASE DELIVER.?? Notes: nurse navigator is getting physical therapy set up?? 4.?Irritable bowel syndrome with diarrhea? Start Dicyclomine HCl Capsule, 10 MG, 1 capsule, Orally, 2 times a day, 30 days, 60 Capsule, Refills 3.?? Notes: patient verbalized undertstanding of medication and directions for use?? * Procedure Codes:?07599 VENIP UNCT, ROUTINE* * Follow Up:?4 Weeks * * Sign off status: Completed true * Provider:?Arnulfo Villalba MD Date:?0 12/23/2024 Generated for Rosi wright/Cole/Batoolitting on:?12/30/2024 01:26 PM EST History and Physical Notes * HPI (History of Present Illness) Category Sub-Category Detail Notes Category Not es Symptom(s) patient is a 74 yo female here for follow up from recent hospitalization. FDischarge summary has been reviewed and medications reconcilled. still feeling weak and having trouble walking Examination Category Sub-Category Detail Notes Category Not es General Examination GENERAL APPEARANCE: alert, w ell hydrated, in no distress HEART: no murmurs, rubs, ga llops, regular rate and rhythm LUNGS: no wheezes, rales, r honchi, good air movement SKIN: good turgor
--- OUTSIDE RECORDS SUMMARY | 2024-12-30 13:26 | XMS_ITS ---
Author Organization Arnulfo Villalba MD Address [address] [place] [phone] Care Team Providers Care Afterschool Name Role Phone Arnulfo Villalba Primary Care Provider Results Component Value Reference Range Notes Potassium Reviewed date:12/20/2024 12:33:25 PM Interpretation: Performing Lab:[facility], [address] [place] [phone] Notes/Report: Potassium 3.2 3.3-5.1 mmol/L REASON FOR VISIT Potassium Encounters Encounter Location Date Provider Diagnosis Arnulfo Villalba MD [address] [place] [address] [place] [phone] 12/20/2024 Arnulfo Villalba Hypokalemia E87.6 Assessments Encounter Date Diagnosis (ICD Code) Assessment Notes Treatment Notes Treatment Clinical Notes Section Notes 12/20/2024 Hypokalemia (ICD-10 - E87.6) Plan Of Treatment Next Appt Details Provider Name:Arnulfo crowley, 01/20/2025 01:45:00 PM, [address] [place] [address], [address] [place] [address], [phone], Provider Name:Arnulfo crowley, 02/23/2025 10:45:00 AM, [address] [place] [address], [address], [phone], Provider Name:Arnulfo crowley, 05/19/2025 07:15:00 AM, [address] [place] [address], [address], [phone], Provider Name:Arnulfo Pritchett ier, 05/26/2025 10:45:00 AM, [facility], [address], [place], [phone], Provider Name:Arnulfo Pritchett ier, 11/23/2025 08:15:00 AM, [facility], [place], [phone], Provider Name:Arnulfo Pritchett ier, 11/30/2025 11:00:00 AM, [facility], [place], [phone], Progress Notes * Renata FULTON MDOB:[birth year] (74 yo F)Acc No.[id number]:12/20/2024 Progress Note Patient:?Renata FULTON M Provider:?Arnulfo Villalba MD :1950???Age:74 Y???Sex:Female D ate:12/20/2024 Address:[address] [place] [phone] Subjective: * Chief Complaints: * ???1. Potassium. * Medical History:? Objective: * Vitals:? Assessment: * Assessment: 1.?Hypokalemia - E87.6 (Prim lamonte)??? Plan: * Treatment: * Procedure Codes:?23869 VENIP UNCT, ROUTINE* * * The named appointment provid er may or may not be the originator of this progress note, and it is not deemed complete until electronically signed by the appointment provider. Sign off status: Pending * Provider:?Arnulfo Villalba MD Date:?0 12/20/2024 Generated for Rosi wright/Cole/Diegosmitting on:?12/30/2024 01:26 PM EST
--- OUTSIDE RECORDS SUMMARY | 2024-12-30 13:26 | XMS_ITS ---
Author Organization Arnulfo Villalba MD Address [address] [place], [place] [phone] Care Team Providers Care Yeast Fermentation Attendant Name Role Phone Arnulfo Villalba Primary Care Provider Results Component Value Reference Range Notes Potassium (Not yet reviewed by provider) Interpretation: Performing Lab:[facility], [address] [place] [phone] Notes/Report: Potassium 4.3 3.3-5.1 mmol/L Complete Blood Count Auto Di ff Reviewed date:12/30/2024 12:33:28 PM Interpretation: Performing Lab:[facility], [address] [place] [phone] Notes/Report: White Blood Count 4.6 4.8-10.8 X10*3/uL Red Blood Count 3.93 4.20-5.50 X10*6/uL Hemoglobin 10.5 12.0-16.0 g/dl Hematocrit 34.0 37.0-47.0 % Mean Corpuscular Volume 86.5 80.0-98.0 fL Mean Corpuscular Hemoglobin 26.7 27.0-33.0 pg Mean Corpuscular HGB Conc 30.9 31.0-35.0 g/dl Red Cell Distribution Width 15.0 11.0-16.0 % Platelet Count 320 160-400 X10*3/uL Mean Platelet Volume 9.4 9.4-12.3 fL Neutrophils Percent Auto 59.9 45-73 % Imm Gran Pct Auto 0.2 0.0-0.4 % Lymphocytes Percent Auto 28.7 20-40 % Monocytes Percent Auto 6.7 2-11 % Eosinophils Percent Auto 3.2 0-4 % Basophils Percent Auto 1.3 0-2 % NRBC Pct Auto 0.0 0.0-0.2 /100WBC Neutrophils Absolute Auto 2.8 2.0-8.3 x10*3/u L Imm Gran Abs Auto 0.01 0.00-0.03 X10*3/uL Lymphocytes Absolute Auto 1.3 1.2-4.9 X10*3/u L Monocytes Absolute Auto 0.3 0.1-1.2 X10*3/uL Eosinophils Absolute Auto 0.2 0.0-0.4 X10*3/u L Basophils Absolute Auto 0.1 0.0-0.2 X10*3/uL NRBC Abs Auto 0.000 0.0-0.012 X10*3/uL REASON FOR VISIT CBC AUTO DIFF, POTASSIUM Encounters Encounter Location Date Provider Diagnosis Arnulfo Villalba MD [address] [place] [phone] 12/30/2024 Arnulfo Villalba Anemia D64.9 and Hypokalemia E87.6 Assessments Encounter Date Diagnosis (ICD Code) Assessment Notes Treatment Notes Treatment Clinical Notes Section Notes 12/30/2024 Anemia (ICD-10 - D64.9) 12/30/2024 Hypokalemia (ICD-10 - E87.6) Plan Of Treatment Pending Test Test Name Order Date Potassium 12/30/2024 Next Appt Details Provider Name:Arnulfo crowley, 01/20/2025 01:45:00 PM, [address] [place] [address], [address], [phone], Provider Name:Arnulfo crowley, 02/23/2025 10:45:00 AM, [address] [place] [address], [address], [phone], Provider Name:Arnulfo crowley, 05/19/2025 07:15:00 AM, [address] [place] [address], [phone], Provider Name:Arnulfo crowley, 05/26/2025 10:45:00 AM, [address], [address], [place], [place], [phone], Provider Name:Arnulfo Pritchett ravinderrodger, 11/23/2025 08:15:00 AM, [address] [facility], Suite [facility], [place], [place], [phone], Provider Name:Arnulfo Pritchett ravinderr, 11/30/2025 11:00:00 AM, [address] [facility], Suite [facility], [place], [place], [phone], Progress Notes * Renata FULTON MDOB:[birth year] (74 yo F)Acc No.[id number]:12/30/2024 Progress Note Patient:?Renata FULTON M Provider:?Arnulfo Villalba MD :1950???Age:74 Y???Sex:Female D ate:12/30/2024 Address:[address] [place] [phone] Subjective: * Chief Complaints: * ???1. CBC AUTO DIFF, POTASSI UM. * Medical History:? Objective: * Vitals:? Assessment: * Assessment: 1.?Anemia - D64.9???2.?Hypok alemia - E87.6??? Plan: * Treatment: 2.?Hypokalemia?LAB: Potassium (Collection Date & Time - 12/30/2024 09:30 AM) ?LAB: Complete Blood Count Auto Diff (Collection Date & Time - 12/30/2024 09:30 AM) * Procedure Codes:?95732 VENIP UNCT, ROUTINE* * * The named appointment provid er may or may not be the originator of this progress note, and it is not deemed complete until electronically signed by the appointment provider. Sign off status: Pending * Provider:?Arnulfo Villalba MD Date:?0 12/30/2024 Generated for Jajai ng/Fasandyg/eTransmitting on:?12/30/2024 01:26 PM EST
== END 2024-12-30 11:19 | disposition home or self-care (01) ==
LOC: HO.LNP 11:18
PROVIDERS: Visit Provider Internal Medicine
DX: D64.9 Anemia, unspecified (principal); E87.5 Hyperkalemia
CPT/HCPCS: 84132; 85025

== ENCOUNTER 2025-01-09 09:04 | Outpatient (AMB) | payer MEDICARE, SELFPAY ==
--- NOTE | 2025-01-09 09:27 | MHC.OFFVIS ---
Vital Signs 01/09/25 09:28 Height 5 ft Weight 130 lb BMI 25.4 BP 124/60 Blood Pressure Location Lt brachial Position Sitting Pulse 73 Intake Visit Reasons: Diverticulosis Intake Note: Renata presents in the office today for Diverticulosis follow up. CC: She states she is doing a lot better and hoping that she is clearedup. She threw up blood while she was in the ED and was there for 5 days. She states that she is having a nervous stomach and she states she also had a hernia repair. Medical Technologist Chief Required: No Allergies Codeine Sulfate Allergy (Severe, Verified 01/09/25 09:28) Anaphylaxis Antihistamine Allergy (Intermediate, Verified 01/09/25 09:28) Shakiness egg Allergy (Intermediate, Verified 01/09/25 09:28) Heartburn Sulfa (Sulfonamide Antibiotics) [SULFA (SULFONAMIDE ANTIBIOTICS)] Allergy (Intermediate, Verified 01/09/25 09:28) RASH diphenhydramine [From Benadryl] Allergy (Verified 01/09/25 09:28) sweats, palpitation cefuroxime Adverse Reaction (Verified 01/09/25 09:28) leon tirado HPI Comments Details: 74 y.o F with past medical history of hypertension, GERD, rheumatoid arthritis, history of CVA, paraesophageal hernia s/p repair 09/13/2024 laparoscopic lysis of adhesions and gastropexy who is here for inpatient follow up. Seen in hospital 12/05/24 for hematemesis and diverticulitis. Following up today to schedule egd/colo. To recall had atypical focal ascending colon wall thickening on CT done in hospital last month. Her last colo was in 2019 (x2 T.A in ASCENDING colon). Currently reports no further vomiting since hospitalization. No abd pain, change in stool color or consistency. No unintentional weight loss. 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 Headache Sinusitis Asthma Generalized anxiety disorder Mood disorder, drug-induced Diaphragmatic hernia Panic disorder [episodic paroxysmal anxiety] Dysthymia Hypertension Diverticulitis CVA (cerebral vascular accident) Vertigo Tubular adenoma of colon Positive colorectal cancer screening using Cologuard test Irritable bowel syndrome with both constipation and diarrhea GERD (gastroesophageal reflux disease) Depression with anxiety HTN (hypertension), benign Lupus Surgical History S/P repair of paraesophageal hernia H/O wrist surgery Hx of colonoscopy History of cholecystectomy Family History Father CAD (coronary artery disease) Maternal Grandmother HTN (hypertension), benign Father No problems noted. 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, 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 Review of Systems Const All systems reviewed & are unremarkable except as noted in HPI and below Physical Exam Vital Signs: Last Vital Signs Pulse 73 01/09/25 09:28 BP 124/60 01/09/25 09:28 BMI result Body Mass Index 25.4 No apparent distress Nonicteric Abdomen soft, nondistended Alert and oriented x3, uses cane to ambulate Assessment & Plan Assessment & Plan (1) Hematemesis: Code(s): K92.0 - Hematemesis Category: Medical (2) Colon wall thickening: Code(s): K63.9 - Disease of intestine, unspecified Category: Medical (3) Acute on chronic anemia: Code(s): D64.9 - Anemia, unspecified Category: Medical (4) Acute diverticulitis: Code(s): K57.92 - Diverticulitis of intestine, part unspecified, without perforation or abscess without bleeding Category: Medical Plan DDx for hematemesis include esophagitis, PUD, AVMs. Also needs colo to follow up on acute diverticiulitis with atypical colon wall thickening noted on CT scan. Plan: - EGD/colo to be booked within 6-8 weeks - Pt requests miralax/gatorade prep - Instructions reviewed and handout provided Follow up after procedures Coding Level of Care Code Est Pt Level 4 (01564) Diagnoses Hematemesis K92.0 Colon wall thickening K63.9 Acute on chronic anemia D64.9 Acute diverticulitis K57.92
[2025-01-09 09:28] VITALS: BP 124/60; PULSE 73; BMI 25.4
--- OUTSIDE RECORDS SUMMARY | 2025-01-09 09:35 | XMS_ITS ---
Author Organization Arnulfo Villalba MD Address [address] [place] [phone] Care Team Providers Care Import/Export Specialist Name Role Phone Arnulfo Villalba Primary Care Provider Results Component Value Reference Range Notes Potassium Reviewed date:12/20/2024 12:33:25 PM Interpretation: Performing Lab:[facility], [address] [place] [phone] Notes/Report: Potassium 3.2 3.3-5.1 mmol/L REASON FOR VISIT Potassium Encounters Encounter Location Date Provider Diagnosis Arnulfo Villalba MD [address] [place] [address] [place] [phone] 12/20/2024 Arnulfo Villalba Hypokalemia E87.6 Assessments Encounter Date Diagnosis (ICD Code) Assessment Notes Treatment Notes Treatment Clinical Notes Section Notes 12/20/2024 Hypokalemia (ICD-10 - E87.6) Plan Of Treatment Next Appt Details Provider Name:Arnulfo crowley, 01/20/2025 01:45:00 PM, [address] [place] [address], [address] [place] [address], [phone], Provider Name:Arnulfo crowley, 02/23/2025 10:45:00 AM, [address] [place] [address], [address], [phone], Provider Name:Arnulfo crowley, 05/19/2025 07:15:00 AM, [address] [place] [address], [address], [phone], Provider Name:Arnulfo Pritchett ier, 05/26/2025 10:45:00 AM, 10 [facility], [address], [place], [phone], Provider Name:Arnulfo Pritchett ier, 11/23/2025 08:15:00 AM, [facility], [place], [phone], Provider Name:Arnulfo Pritchett ier, 11/30/2025 11:00:00 AM, [facility], [address] [place], [phone], Progress Notes * Renata FULTON MDOB:[birth year] (74 yo F)Acc No.[id number]:12/20/2024 Progress Note Patient:?Renata FULTON M Provider:?Arnulfo Villalba MD :1950???Age:74 Y???Sex:Female D ate:12/20/2024 Address:[address] [place], [place] [address], [phone] Subjective: * Chief Complaints: * ???1. Potassium. * Medical History:? Objective: * Vitals:? Assessment: * Assessment: 1.?Hypokalemia - E87.6 (Prim lamonte)??? Plan: * Treatment: * Procedure Codes:?02062 VENIP UNCT, ROUTINE* * * The named appointment provid er may or may not be the originator of this progress note, and it is not deemed complete until electronically signed by the appointment provider. Sign off status: Pending * Provider:?Arnulfo Villalba MD Date:?0 12/20/2024 Generated for Rosi wright/Cole/eTmichaelsmitting on:?01/09/2025 09:35 AM EDT
--- OUTSIDE RECORDS SUMMARY | 2025-01-09 09:35 | XMS_ITS ---
Author Organization Arnulfo Villalba MD Address [address] [place], [place] [phone] Care Team Providers Care Etl Database Developer Name Role Phone Arnulfo Villalba Primary Care Provider Results Component Value Reference Range Notes Complete Blood Count Auto Di ff Reviewed date:12/30/2024 12:33:28 PM Interpretation: Performing Lab:[facility], [address] [place] [phone] Notes/Report: White Blood Count 4.6 4.8-10.8 X10*3/uL [...] X10*3/uL NRBC Abs Auto 0.000 0.0-0.012 X10*3/uL Potassium Reviewed date:12/30/2024 04:25:41 PM Interpretation: Performing Lab:[facility], [address] [place] [phone] Notes/Report: Potassium 4.3 3.3-5.1 mmol/L REASON FOR VISIT CBC AUTO DIFF, POTASSIUM Encounters Encounter Location Date Provider Diagnosis Arnulfo Villalba MD [address] [place] [address] [place] [phone] 12/30/2024 Arnulfo Villalba Anemia D64.9 and Hypokalemia E87.6 Assessments Encounter Date Diagnosis (ICD Code) Assessment Notes Treatment Notes Treatment Clinical Notes Section Notes 12/30/2024 Anemia (ICD-10 - D64.9) 12/30/2024 Hypokalemia (ICD-10 - E87.6) Plan Of Treatment Next Appt Details Provider Name:Arnulfo crowley, 01/20/2025 01:45:00 PM, [address] [place] [address], [address], [phone], Provider Name:Arnulfo crowley, 02/23/2025 10:45:00 AM, [address] [place] [address], [address], [phone], Provider Name:Arnulfo crowley, 05/19/2025 07:15:00 AM, [address] [place] [address], [address], [phone], Provider Name:Arnulfo crowley, 05/26/2025 10:45:00 AM, [address] [place] [address], [address], [place], [place], [phone], Provider Name:Arnulfo Pritchett carline, 11/23/2025 08:15:00 AM, [address] [facility], [address], [place], [place], [phone], Provider Name:Arnulfo Pritchett ravinderr, 11/30/2025 11:00:00 AM, [address] [facility], Suite [facility], [place], [place], [phone], Progress Notes * Renata FULTON MDOB:[birth year] (74 yo F)Acc No.[id number]:12/30/2024 Progress Note Patient:?Renata FULTON M Provider:?Arnulfo Villalba MD :1950???Age:74 Y???Sex:Female D ate:12/30/2024 Address:[address] [place], [place] [phone] Subjective: * Chief Complaints: * ???1. CBC AUTO DIFF, POTASSI UM. * Medical History:? Objective: * Vitals:? Assessment: * Assessment: 1.?Anemia - D64.9 (Primary)? ??2.?Hypokalemia - E87.6??? Plan: * Treatment: 2.?Hypokalemia?LAB: Complete Blood Count Auto Diff (Collection Date & Time - 12/30/2024 09:30 AM) ?LAB: Potassium (Collection Date & Time - 12/30/2024 09:30 AM) * Procedure Codes:?70502 VENIP UNCT, ROUTINE* * * The named appointment provid er may or may not be the originator of this progress note, and it is not deemed complete until electronically signed by the appointment provider. Sign off status: Pending * Provider:?Arnulfo Villalba MD Date:?0 12/30/2024 Generated for Printi ng/Faxing/eTransmitting on:?01/09/2025 09:35 AM EDT
--- OUTSIDE RECORDS SUMMARY | 2025-01-09 09:35 | XMS_ITS ---
Author Organization Arnulfo Villalba MD Address [address] [place], [place] [phone] Care Team Providers Care Director Industrial Museum Name Role Phone Arnulfo Villalba Primary Care Provider Allergies Allergen (clinical drug ingredient) Drug/Non Drug Allergy documented on EMR Reaction Allergy Type Onset Date Status hydrochlorothiazide hydroCHLOROthiazide hyponatremia D rug Allergy Active Codeine Phosphate Soluble sweats,shakes Drug Allergy Active eggs (uncoded) heartburn Allergy Activ e antihistamines (uncoded) shakes and sweats Allergy Active Results Component Value Reference Range Notes Potassium Reviewed date:12/23/2024 03:36:08 PM Interpretation: Performing Lab:[facility], [address] [place] [phone] Notes/Report: Potassium 4.1 3.3-5.1 mmol/L Slight Hemoly [...] Problem Status W/U Status Risk Notes Problem [id number] Irritable bowel syndrome with diarrhea (K58.0) Active confirmed Vital Signs Blood pressure systolic 152 mm Hg 12/23/19 25 Blood pressure diastolic 84 mm Hg 025 Height 60 in 12/23/2024 Weight 127 lbs 12/23/2024 BMI 24.8 kg/m2 12/23/2024 weight is down 6 pounds sin e 11-25-24 Encounters Encounter Location Date Provider Diagnosis Arnulfo Villalba MD [address] [place] [address] [place] [phone] 12/23/2024 Arnulfo Villalba Hypokalemia E87.6 ; Chronic [...] Reason: Provider Name:Arnulfo crowley, 01/20/2025 01:45:00 PM, [address] [place] [address], [address] [place] [address], [phone], Provider Name:Arnulfo crowley, 02/23/2025 10:45:00 AM, [address] [place] [address], [address], [phone], Provider Name:Arnulfo crowley, 05/19/2025 07:15:00 AM, [address] [place] [address], [address], [phone], Provider Name:Arnulfo Pritchett carline, 05/26/2025 10:45:00 AM, [address], [address], [place], [phone], Provider Name:Arnulfo Pritchett ravinderrodger, 11/23/2025 08:15:00 AM, [address], [address], [place], [phone], Provider Name:Arnulfo Pritchett ravinderr, 11/30/2025 11:00:00 AM, [address], [address], [place], [phone], Progress Notes * Renata FULTON MDOB:[birth year] (74 yo F)Acc No.[id number]:12/23/2024 Patient:?Renata FULTON M Provider:?Arnulfo Villalba MD :1950???Age:74 Y???Sex:Female D ate:12/23/2024 Address:[address] [place] [phone] Subjective: * Chief Complaints: * ???PH/TCMDraw a [...] medication and directions for use?? * Procedure Codes:?84026 VENIP UNCT, ROUTINE* * Follow Up:?4 Weeks * * Sign off status: Completed true * Provider:?Arnulfo Villalba MD Date:?0 12/23/2024 Generated for Rosi wright/Cole/Batoolitting on:?01/09/2025 09:35 AM EDT History and Physical Notes * HPI (History [...]
== END 2025-01-09 10:08 | disposition home or self-care (01) ==
PROVIDERS: PCP Internal Medicine; Visit Provider Internal Medicine
DX: K92.0 Hematemesis (principal); K63.9 Disease of intestine, unspecified; D64.9 Anemia, unspecified; K57.92 Diverticulitis of intestine, part unspecified, without perforation or abscess without bleeding
CPT/HCPCS: 99214

== ENCOUNTER → 2025-01-09 09:04 | Outpatient (BNVA) | payer MEDICARE, SELFPAY | PROVIDERS: PCP Internal Medicine; Visit Provider Internal Medicine | DX: K92.0 Hematemesis (principal); K63.9 Disease of intestine, unspecified; K57.92 Diverticulitis of intestine, part unspecified, without perforation or abscess without bleeding; D64.9 Anemia, unspecified | CPT/HCPCS: 99212 ==

== ENCOUNTER 2025-02-11 10:03 | Emergency (ER) | payer MEDICARE, SELFPAY ==
--- NOTE | ~2025-02-11 | CT_ITS ---
CLINICAL HISTORY: lower abd pain, N, recent divertic CT abdomen and pelvis with contrast Comparison: CT/SR - CT GI BLEED ABD PEL WO/W IVCON - 12/04/24 17:58 EST Findings: The lung bases are clear. Moderately large hiatal hernia. The gallbladder is absent. The liver, spleen, adrenal glands and pancreas are unremarkable. The kidneys, ureters and bladder appear normal. There is abnormal thickening along the sigmoid colon in the region of diverticulosis. No bowel obstruction, free air, abscess or pneumatosis. Calcified fibroid noted. Moderately severe diffuse atherosclerotic disease. No acute osseous finding. Impression: Findings suggest acute uncomplicated diverticulitis versus less likely focal colitis. Follow-up recommended to ensure resolution of the sigmoid thickening. Additional incidental findings. This document has been electronically signed by: Rich Vazquez MD on 02/11/2025 12:04:00
--- NOTE | 2025-02-11 10:15 | ED_ITS ---
HPI - General Adult General Chief complaint: Abdominal Pain Stated complaint: nausea abd cramps Time Seen by Provider: 02/11/25 10:23 Source: patient, RN notes reviewed and old records reviewed Mode of arrival: ambulatory History of Present Illness ED Provider: Karime Robison PA-C HPI narrative: 74-year-old female with a past medical history of asthma, HLD, HTN, GERD, anxiety, lupus, CVA, vertigo, recent diverticulitis, presenting to the ED complaining of lower abdominal pain with associated nausea and nonbloody/non melanotic diarrhea x few days. Denies fever, chills, vomiting, dysuria/hematuria. Admits pain feels similar to prior diverticulitis Related Data Home Medications ?Medication ?Instructions ?Recorded ?Confirmed fluticasone propionate 50 1 spray intranasal DAILY PRN 08/08/20 12/05/24 mcg/actuation nasal Allergic Symptoms spray,suspension albuterol sulfate 90 mcg/actuation 2 puff inhalation Q6H PRN 10/22/21 12/05/24 aerosol inhaler (Ventolin HFA) Respiratory Distress acetaminophen 500 mg tablet 1,000 mg PO Q6H PRN Pain 07/24/22 12/05/24 (Tylenol Extra Strength) lisinopril 20 mg tablet 20 mg PO DAILY 10/24/22 12/05/24 magnesium chloride 71.5 mg 1 tab PO DAILY 10/24/22 12/05/24 (magnesium chloride) tablet,delayed release (Slow-Mag) alendronate 70 mg tablet 70 mg PO TH@0900 06/26/24 12/05/24 omeprazole 40 mg capsule,delayed 40 mg PO DAILY@0630 12/05/24 12/05/24 release Previous Rx's ?Medication ?Instructions ?Recorded atorvastatin 40 mg tablet 40 mg PO BEDTIME #30 tabs 05/27/21 amlodipine 5 mg tablet 5 mg PO DAILY #30 tabs 10/26/22 paroxetine HCl 40 mg tablet 40 mg PO BEDTIME 30 days #30 tabs 11/28/24 carvedilol 25 mg tablet 12.5 mg (1/2 x 25 mg) PO BID #90 12/08/24 tabs levofloxacin 750 mg tablet 750 mg PO BEDTIME #3 tabs 12/08/24 chlordiazepoxide HCl 5 mg capsule 5 mg PO TID PRN anxiety #15 caps 12/09/24 metronidazole 500 mg tablet 500 mg PO Q8H 3 days #9 tabs 12/09/24 ondansetron 4 mg disintegrating 4 mg translingual Q6H PRN Nausea 12/09/24 tablet And Vomiting #10 tabs oxycodone 5 mg tablet 5 mg PO Q6H PRN Pain, Severe (Pain 12/09/24 Scale 7-10) #10 tabs buspirone 10 mg tablet 10 mg PO BID #180 tabs 12/22/24 lorazepam 0.5 mg tablet 0.5 mg PO TID PRN anxiety #90 tabs 12/22/24 mirtazapine 7.5 mg tablet 7.5 mg PO BEDTIME #30 tabs 12/22/24 amoxicillin 875 mg-potassium 1 tab PO TID 7 days #21 tabs 02/11/25 clavulanate 125 mg tablet Allergies Allergy/AdvReac Type Severity Reaction Status Date / Time Codeine Sulfate Allergy Severe Anaphylaxis Verified 02/11/25 10:17 Antihistamine Allergy Intermediate Shakiness Verified 02/11/25 10:17 egg Allergy Intermediate Heartburn Verified 02/11/25 10:17 Sulfa (Sulfonamide Allergy Intermediate RASH Verified 02/11/25 10:17 Antibiotics) [SULFA (SULFONAMIDE ANTIBIOTICS)] diphenhydramine Allergy sweats, Verified 02/11/25 10:17 [From Benadryl] palpitation cefuroxime AdvReac delerium Verified 02/11/25 10:17 ,paranoia Review of Systems 2 Review of Systems: Yes all other systems are reviewed and are negative Constitutional: Constitutional: Reports as per [facility] Past Medical History Attestation statement: The following information was validated with the patient. 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 Headache Sinusitis Asthma Generalized anxiety disorder Mood disorder, drug-induced Diaphragmatic hernia Panic disorder [episodic paroxysmal anxiety] Dysthymia Hypertension Diverticulitis CVA (cerebral vascular accident) Vertigo Tubular adenoma of colon Positive colorectal cancer screening using Cologuard test Irritable bowel syndrome with both constipation and diarrhea GERD (gastroesophageal reflux disease) Depression with anxiety HTN (hypertension), benign Lupus Surgical History S/P repair of paraesophageal hernia H/O wrist surgery Hx of colonoscopy History of cholecystectomy Family History Family History Father CAD (coronary artery disease) Maternal Grandmother HTN (hypertension), benign Father No problems noted. Mother Hypertension Asthma COPD (chronic obstructive pulmonary disease) Social History Social History Household Members: Family Household Members Other:: niece lives upstairs Housing: House Are you a primary rn long term care to a significant other at home: No Do you presently have visiting nurse or other home services: No Alcohol intake: never Patient Tobacco Use Status: Former Tobacco user Tobacco use type: Cigarette Years Smoked: quit greater than 10 years ago Smoked in Last 30 Days: No Second Hand Smoke Exposure: No Use of substances other than those prescribed or required for medical reasons: No Advance Directives: No Advance Directives Information Provided: No Advance Directives Date on File: 04/07/23 Do you have a plan to hurt others: No Plan service: No Current occupational status: retired 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, 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 Physical Exam ED Vital Signs: Vital Signs - 24 hr 02/11/25 10:16 02/11/25 12:03 02/11/25 13:15 Temperature 98.2 F 98.4 F 98 F Pulse Rate 104 H 93 78 Respiratory Rate 16 16 18 Blood Pressure 164/92 H 142/88 H 144/92 H Pulse Oximetry 97 96 98 Oxygen Delivery Method Room Air Room Air Room Air BMI result Body Mass Index 25.8 Const General: cooperative, healthy appearing and no acute distress Orientation/consciousness: patient oriented x3 Limitations: no limitations HENMT Head: Yes normal to inspection and Yes atraumatic Ears: hearing grossly normal bilaterally General nose exam: Normal external nose present Face and sinus: Yes normal facial exam Eyes General: appearance normal, both eyes and all related structures EOM: EOMs intact bilaterally Neck Neck: Yes normal visual inspection and Yes no meningeal signs Resp Effort & Inspection: normal respiratory effort and no respiratory distress Auscultation: clear to auscultation bilaterally Cardio Rate: regular rate Heart sounds: S1 normal heart sound present and S2 normal heart sound present GI Inspection: Yes normal to inspection Palpation (GI): Soft to palpation, Tenderness to palpation present (GI) (lower) with no rebound tenderness, no guarding and not rigid General: Yes no CVA tenderness Back/Spine/Pelvis Back: no CVA tenderness Skin Rashes: no rashes Wounds: no wounds Neuro General: patient oriented x3, tone normal and no meningeal signs Cranial nerves: Yes CN's II-XII intact bilaterally Gait exam (Neuro): Normal gait present Extrem General: Yes normal to inspection Course Course Course Narrative: This is a rapid medical exam performed by Austin Wilson NP: Additional HPI, ROS, PE not included below will be deferred to primary provider. 02/11/25 10:16 Patient is a 74-year-old female with recent inpatient hospitalization for diverticulitis presenting with 3 days of abdominal pain, diarrhea. Was told to return if pain returned. Unsure of fevers but has felt cold. Plan: labs, UA -1237--labs reassuring. No leukocytosis. UA not infected, [address] abdomen pelvis w IV con Impression: Findings suggest acute uncomplicated diverticulitis versus less likely focal colitis. Follow-up recommended to ensure resolution of the sigmoid thickening. Additional incidental findings. > patient tolerating PO in the ED w/o difficulty. safe for d/c home Results discussed with patient including worrisome signs and symptoms and strict return precautions, and when to return to the emergency department. They verbalized understanding and feel safe for discharge at this time. Medications Administered Discontinued Medications Generic Name Dose Route Start Last Admin Trade Name [place] PRN Reason Stop Dose Admin Acetaminophen 650 mg 02/11/25 10:41 02/11/25 10:52 Acetaminophen 325 Mg Tablet PO 02/11/25 10:42 650 mg ONCE ONE Administration Sodium Chloride 1,000 mls @ 999 mls/hr 02/11/25 10:45 02/11/25 12:05 Ns IV 02/11/25 11:45 Infused .Q1H1M RAMONA Infusion Iohexol 85 ml 02/11/25 11:17 02/11/25 11:18 Iohexol 350 Mg/Ml 100 Ml Infus..Btl IV 02/11/25 11:18 85 ml ONCE ONE Administration Ondansetron HCl 4 mg 02/11/25 10:41 02/11/25 10:52 Ondansetron Hcl 4 Mg/2 Ml Vial IVPUSH 02/11/25 10:42 4 mg ONCE ONE Administration Medical Decision Making Medical Decision Making [facility] Narrative: 74-year-old female with a past medical history of asthma, HLD, HTN, GERD, anxiety, lupus, CVA, vertigo, recent diverticulitis, presenting to the ED complaining of lower abdominal pain with associated nausea and nonbloody/non melanotic diarrhea x few days. On exam mildly tachycardic, NAD, nontoxic appearing, abdomen is soft with mild lower tenderness to palpation, no rebound or guarding. No CVAT. Concern for recurrence of diverticulitis vs possible appendicitis vs UTI. Lower suspicion for pyelo/renal stone, cholecystitis/lithiasis or pancreatitis at this time Low suspicion for severe sepsis Plan: Labs, UA, CT AP, IVF, pain control, re-evaluate Please refer to course for remaining clinical decision making, interpretation of labs/imaging results, and discussions with consultants and/or family members. Differential Diagnosis Differential Diagnoses: The differential diagnosis associated with the presentation includes As above Admission/Observation Consideration of admission/observation: Escalation of care including admission/observation considered Lab Data [facility] Lab Attestation statement: I reviewed the patient's lab results. 02/11/25 10:37 02/11/25 10:37 Labs: Lab Results 02/11/25 02/11/25 Range/Units 10:37 12:14 WBC 5.0 (4.8-10.8) X10*3/uL RBC 4.04 L (4.20-5.50) X10*6/uL Hgb 10.1 L (12.0-16.0) g/dl Hct 31.7 L (37.0-47.0) % MCV 78.5 L (80.0-98.0) fL MCH 25.0 L (27.0-33.0) pg MCHC 31.9 (31.0-35.0) g/dl RDW 13.7 (11.0-16.0) % Plt Count 398 (160-400) X10*3/uL MPV 8.9 L (9.4-12.3) fL Immature Gran % (Auto) 0.4 (0.0-0.4) % Neut % (Auto) 64.4 (45-73) % Lymph % (Auto) 23.6 (20-40) % Chambers % (Auto) 10.2 (2-11) % Eos % (Auto) 0.8 (0-4) % Baso % (Auto) 0.6 (0-2) % Lymph # (Auto) 1.2 (1.2-4.9) X10*3/uL [place] # (Auto) 0.5 (0.1-1.2) X10*3/uL Eos # (Auto) 0.0 (0.0-0.4) X10*3/uL Baso # (Auto) 0.0 (0.0-0.2) X10*3/uL Abs Immat Gran (auto) 0.02 (0.00-0.03) X10*3/uL Absolute Neuts (auto) 3.2 (2.0-8.3) x10*3/uL Absolute Nucleated RBC 0.000 (0.0-0.012) X10*3/uL Nucleated RBC % (auto) 0.0 (0.0-0.2) /100WBC Sodium 136 (135-145) mmol/L Potassium 3.4 D (3.3-5.1) mmol/L Chloride 104 (96-108) mmol/L Carbon Dioxide 19 L (22-29) mmol/L Anion Gap 16 (12-20) BUN 7 L (9-16) mg/dL Creatinine 0.76 (0.5-1.4) mg/dL Estim Creat Clear Calc 51.8 Estimated GFR > 60 Random Glucose 98 (60-115) mg/dL Calcium 8.7 (8.4-10.2) mg/dL Magnesium 1.6 (1.6-2.6) mg/dL Total Bilirubin 0.4 (0.0-1.0) mg/dL AST 28 (5-31) U/L ALT 17 (0-31) U/L Alkaline Phosphatase 116 (39-117) U/L Total Protein 6.8 (6.5-8.0) g/dL Albumin 3.9 (3.5-5.0) g/dL Lipase 14 (8-78) U/L Urine Color Yellow Urine Appearance Clear Urine pH 6.0 (5.0-9.0) Ur Specific [place] >= 1.030 H (1.005-1.025) Urine Protein Negative (Neg-Trace) mg/dL Urine Glucose (UA) Negative (Negative) mg/dL Urine Ketones 15 (Negative) mg/dL Urine Blood Negative (Negative) Urine Nitrite Negative (Negative) Ur Leukocyte Esterase Negative (Negative) Independent Interpretation I performed an independent interpretation of an: CT Scan Radiology Impression Discussion of test interpretation with radiology: I have reviewed the radiologist's reading. External Record Review External record reviewed: Inpatient record, Office record, Outpatient record, Prior outpatient labs, Prior outpatient radiology, Primary care record and Outside ED record Tests considered The following testing was considered but not selected: As above Prescription Management I considered prescription management with: Pain Medication Chronic Conditions Patient?s care impacted by: Hypertension and Other Social Determinants Patient?s care significantly limited by Social Determinants of Health including: Other Social Determinant of Health Discharge Plan Discharge Clinical Impression: Diverticulitis Patient Disposition: Home, Self-Care Instructions: Diverticulitis (ED), Diverticulitis Diet (ED) Additional Instructions: You have diverticulitis Please practice clear liquid diet for the next 2-3 days. Avoid foods with seeds Augmentin as an antibiotic please take as prescribed You need to follow-up with gastroenterology If her symptoms persist or worsen, pain becomes unbearable, you have fever, persistent nausea, vomiting or diarrhea return to the ED Your prescription was sent to [facility] on [address] [facility] the [facility] pharmacy is closed on the weekends Prescriptions: New amoxicillin-pot clavulanate 875-125 mg tablet 1 tab PO TID 7 Days Qty: 21 0RF No Action atorvastatin 40 mg Tablet 40 mg PO BEDTIME Qty: 30 0RF lisinopril 20 mg tablet 20 mg PO DAILY Slow-Mag 71.5 mg tablet,delayed release (DR/EC) 1 tab PO DAILY amlodipine 5 mg Tablet 5 mg PO DAILY Qty: 30 0RF Protocol: Hold for SBP< HOLD for SBP < : 90 alendronate 70 mg tablet 70 mg PO TH@0900 Rx Instructions: Take 1 tab once weekly, 1st thing in the morning, on an empty stomach, with a large glass of water (at least 6 oz) and stay upright for 30 minutes omeprazole 40 mg capsule,delayed release(DR/EC) 40 mg PO DAILY@0630 levofloxacin 750 mg Tablet 750 mg PO BEDTIME Qty: 3 0RF carvedilol 25 mg tablet 12.5 mg PO BID Qty: 90 0RF oxycodone 5 mg Tablet 5 mg PO Q6H PRN (Reason: Pain, Severe (Pain Scale 7-10)) Qty: 10 0RF Rx Instructions: Partial Fill upon patient request. chlordiazepoxide HCl 5 mg capsule 5 mg PO TID PRN (Reason: anxiety) Qty: 15 0RF ondansetron 4 mg Tablet,Disintegrating 4 mg translingual Q6H PRN (Reason: Nausea And Vomiting) Qty: 10 0RF metronidazole 500 mg tablet 500 mg PO Q8H 3 Days Qty: 9 0RF fluticasone propionate 50 mcg/actuation spray,suspension 1 spray intranasal DAILY PRN (Reason: Allergic Symptoms) albuterol sulfate [Ventolin HFA] 90 mcg/actuation HFA aerosol inhaler 2 puff inhalation Q6H PRN (Reason: Respiratory Distress) acetaminophen [Tylenol Extra Strength] 500 mg tablet 1,000 mg PO Q6H PRN (Reason: Pain) paroxetine HCl 40 mg tablet 40 mg PO BEDTIME 30 Days Qty: 30 2RF buspirone 10 mg tablet 10 mg PO BID Qty: 180 1RF lorazepam 0.5 mg tablet 0.5 mg PO TID PRN (Reason: anxiety) Qty: 90 1RF Rx Instructions: can cause balance problems mirtazapine 7.5 mg tablet 7.5 mg PO BEDTIME Qty: 30 1RF Referrals: [facility] G[facility] [Provider Group] - 1 week Arnulfo Villalba MD [Primary Care Provider] - 5 days Interventions: ED Discharge Assessment Last Done: 02/11/25 13:15 Discharge Date/Time: 02/11/25 13:24 Print Language: Mohawk
[2025-02-11 10:16] VITALS: BP 164/92; PULSE 104; RESP 16; TEMP 36.8; O2SAT 97; BMI 25.8
--- NOTE | 2025-02-11 10:31 | ED.ABDPAIN ---
HPI - Abdominal Pain General Chief Complaint: Abdominal Pain Stated Complaint: nausea abd cramps Time Seen by Provider: 02/11/25 10:23 Related Data Home Medications ?Medication ?Instructions ?Recorded ?Confirmed fluticasone propionate 50 1 spray intranasal DAILY PRN 08/08/20 12/05/24 mcg/actuation nasal Allergic Symptoms spray,suspension albuterol sulfate 90 mcg/actuation 2 puff inhalation Q6H PRN 10/22/21 12/05/24 aerosol inhaler (Ventolin HFA) Respiratory Distress acetaminophen 500 mg tablet 1,000 mg PO Q6H PRN Pain 07/24/22 12/05/24 (Tylenol Extra Strength) lisinopril 20 mg tablet 20 mg PO DAILY 10/24/22 12/05/24 magnesium chloride 71.5 mg 1 tab PO DAILY 10/24/22 12/05/24 (magnesium chloride) tablet,delayed release (Slow-Mag) alendronate 70 mg tablet 70 mg PO TH@0900 06/26/24 12/05/24 omeprazole 40 mg capsule,delayed 40 mg PO DAILY@0612/05/24 12/05/24 release Previous Rx's ?Medication ?Instructions ?Recorded atorvastatin 40 mg tablet 40 mg PO BEDTIME #30 tabs 05/27/21 amlodipine 5 mg tablet 5 mg PO DAILY #30 tabs 10/26/22 paroxetine HCl 40 mg tablet 40 mg PO BEDTIME 30 days #30 tabs 11/28/24 carvedilol 25 mg tablet 12.5 mg (1/2 x 25 mg) PO BID #90 12/08/24 tabs levofloxacin 750 mg tablet 750 mg PO BEDTIME #3 tabs 12/08/24 chlordiazepoxide HCl 5 mg capsule 5 mg PO TID PRN anxiety #15 caps 12/09/24 metronidazole 500 mg tablet 500 mg PO Q8H 3 days #9 tabs 12/09/24 ondansetron 4 mg disintegrating 4 mg translingual Q6H PRN Nausea 12/09/24 tablet And Vomiting #10 tabs oxycodone 5 mg tablet 5 mg PO Q6H PRN Pain, Severe (Pain 12/09/24 Scale 7-10) #10 tabs buspirone 10 mg tablet 10 mg PO BID #180 tabs 12/22/24 lorazepam 0.5 mg tablet 0.5 mg PO TID PRN anxiety #90 tabs 12/22/24 mirtazapine 7.5 mg tablet 7.5 mg PO BEDTIME #30 tabs 12/22/24 amoxicillin 875 mg-potassium 1 tab PO TID 7 days #21 tabs 02/11/25 clavulanate 125 mg tablet Allergies Allergy/AdvReac Type Severity Reaction Status Date / Time Codeine Sulfate Allergy Severe Anaphylaxis Verified 02/11/25 10:17 Antihistamine Allergy Intermediate Shakiness Verified 02/11/25 10:17 egg Allergy Intermediate Heartburn Verified 02/11/25 10:17 Sulfa (Sulfonamide Allergy Intermediate RASH Verified 02/11/25 10:17 Antibiotics) [SULFA (SULFONAMIDE ANTIBIOTICS)] diphenhydramine Allergy sweats, Verified 02/11/25 10:17 [From Benadryl] palpitation cefuroxime AdvReac delerium Verified 02/11/25 10:17 ,paranoia PMFSH Past Medical History Medical History Major depression with psychotic features Abnormal EKG Pneumonia Abdominal pain Osteoporosis with pathological fracture Fracture of right ulnar styloid Fracture of right distal radius Dysuria Acute hyponatremia Drug-induced diarrhea 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 Headache Sinusitis Asthma Generalized anxiety disorder Mood disorder, drug-induced Diaphragmatic hernia Panic disorder [episodic paroxysmal anxiety] Dysthymia Hypertension Diverticulitis CVA (cerebral vascular accident) Vertigo Tubular adenoma of colon Positive colorectal cancer screening using Cologuard test Irritable bowel syndrome with both constipation and diarrhea GERD (gastroesophageal reflux disease) Depression with anxiety HTN (hypertension), benign Lupus Surgical History S/P repair of paraesophageal hernia H/O wrist surgery Hx of colonoscopy History of cholecystectomy Family History Family History Father CAD (coronary artery disease) Maternal Grandmother HTN (hypertension), benign Father No problems noted. Mother Hypertension Asthma COPD (chronic obstructive pulmonary disease) Social History Social History Household Members: Family Household Members Other:: niece lives upstairs Housing: House Are you a primary foster care therapist to a significant other at home: No Do you presently have visiting nurse or other home services: No Alcohol intake: never Patient Tobacco Use Status: Former Tobacco user Tobacco use type: Cigarette Years Smoked: quit greater than 10 years ago Smoked in Last 30 Days: No Second Hand Smoke Exposure: No Use of substances other than those prescribed or required for medical reasons: No Advance Directives: No Advance Directives Information Provided: No Advance Directives Date on File: 04/07/23 Do you have a plan to hurt others: No Plan service: No Current occupational status: retired 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0) fL MCH 25.0 L (27.0-33.0) pg MCHC 31.9 (31.0-35.0) g/dl RDW 13.7 (11.0-16.0) % Plt Count 398 (160-400) X10*3/uL MPV 8.9 L (9.4-12.3) fL Immature Gran % (Auto) 0.4 (0.0-0.4) % Neut % (Auto) 64.4 (45-73) % Lymph % (Auto) 23.6 (20-40) % Petroleum % (Auto) 10.2 (2-11) % Eos % (Auto) 0.8 (0-4) % Baso % (Auto) 0.6 (0-2) % Lymph # (Auto) 1.2 (1.2-4.9) X10*3/uL Petroleum # (Auto) 0.5 (0.1-1.2) X10*3/uL Eos # (Auto) 0.0 (0.0-0.4) X10*3/uL Baso # (Auto) 0.0 (0.0-0.2) X10*3/uL Abs Immat Gran (auto) 0.02 (0.00-0.03) X10*3/uL Absolute Neuts (auto) 3.2 (2.0-8.3) x10*3/uL Absolute Nucleated RBC 0.000 (0.0-0.012) X10*3/uL Nucleated RBC % (auto) 0.0 (0.0-0.2) /100WBC Sodium 136 (135-145) mmol/L Potassium 3.4 D (3.3-5.1) mmol/L Chloride 104 (96-108) mmol/L Carbon Dioxide 19 L (22-29) mmol/L Anion Gap 16 (12-20) BUN 7 L (9-16) mg/dL Creatinine 0.76 (0.5-1.4) mg/dL Estim Creat Clear Calc 51.8 Estimated GFR > 60 Random Glucose 98 (60-115) mg/dL Calcium 8.7 (8.4-10.2) mg/dL Magnesium 1.6 (1.6-2.6) mg/dL Total Bilirubin 0.4 (0.0-1.0) mg/dL AST 28 (5-31) U/L ALT 17 (0-31) U/L Alkaline Phosphatase 116 (39-117) U/L Total Protein 6.8 (6.5-8.0) g/dL Albumin 3.9 (3.5-5.0) g/dL Lipase 14 (8-78) U/L Urine Color Yellow Urine Appearance Clear Urine pH 6.0 (5.0-9.0) Ur Specific [place] >= 1.030 H (1.005-1.025) Urine Protein Negative (Neg-Trace) mg/dL Urine Glucose (UA) Negative (Negative) mg/dL Urine Ketones 15 (Negative) mg/dL Urine Blood Negative (Negative) Urine Nitrite Negative (Negative) Ur Leukocyte Esterase Negative (Negative) Medications Administered Discontinued Medications Generic Name Dose Route Start Last Admin Trade Name [place] PRN Reason Stop Dose Admin Acetaminophen 650 mg 02/11/25 10:41 02/11/25 10:52 Acetaminophen 325 Mg Tablet PO 02/11/25 10:42 650 mg ONCE ONE Administration Sodium Chloride 1,000 mls @ 999 mls/hr 02/11/25 10:45 02/11/25 12:05 Ns IV 02/11/25 11:45 Infused .Q1H1M RAMONA Infusion Iohexol 85 ml 02/11/25 11:17 02/11/25 11:18 Iohexol 350 Mg/Ml 100 Ml Infus..Btl IV 02/11/25 11:18 85 ml ONCE ONE Administration Ondansetron HCl 4 mg 02/11/25 10:41 02/11/25 10:52 Ondansetron Hcl 4 Mg/2 Ml Vial IVPUSH 02/11/25 10:42 4 mg ONCE ONE Administration Discharge Plan Discharge Clinical Impression: Diverticulitis Patient Disposition: Home, Self-Care Instructions: Diverticulitis (ED), Diverticulitis Diet (ED) Additional Instructions: You have diverticulitis Please practice clear liquid diet for the next 2-3 days. Avoid foods with seeds Augmentin as an antibiotic please take as prescribed You need to follow-up with gastroenterology If her symptoms persist or worsen, pain becomes unbearable, you have fever, persistent nausea, vomiting or diarrhea return to the ED Your prescription was sent to [facility] on as the [facility] [place] pharmacy is closed on the weekends Prescriptions: New amoxicillin-pot clavulanate 875-125 mg tablet 1 tab PO TID 7 Days Qty: 21 0RF No Action atorvastatin 40 mg Tablet 40 mg PO BEDTIME Qty: 30 0RF lisinopril 20 mg tablet 20 mg PO DAILY Slow-Mag 71.5 mg tablet,delayed release (DR/EC) 1 tab PO DAILY amlodipine 5 mg Tablet 5 mg PO DAILY Qty: 30 0RF Protocol: Hold for SBP< HOLD for SBP < : 90 alendronate 70 mg tablet 70 mg PO TH@0900 Rx Instructions: Take 1 tab once weekly, 1st thing in the morning, on an empty stomach, with a large glass of water (at least 6 oz) and stay upright for 30 minutes omeprazole 40 mg capsule,delayed release(DR/EC) 40 mg PO DAILY@0630 levofloxacin 750 mg Tablet 750 mg PO BEDTIME Qty: 3 0RF carvedilol 25 mg tablet 12.5 mg PO BID Qty: 90 0RF oxycodone 5 mg Tablet 5 mg PO Q6H PRN (Reason: Pain, Severe (Pain Scale 7-10)) Qty: 10 0RF Rx Instructions: Partial Fill upon patient request. chlordiazepoxide HCl 5 mg capsule 5 mg PO TID PRN (Reason: anxiety) Qty: 15 0RF ondansetron 4 mg Tablet,Disintegrating 4 mg translingual Q6H PRN (Reason: Nausea And Vomiting) Qty: 10 0RF metronidazole 500 mg tablet 500 mg PO Q8H 3 Days Qty: 9 0RF fluticasone propionate 50 mcg/actuation spray,suspension 1 spray intranasal DAILY PRN (Reason: Allergic Symptoms) albuterol sulfate [Ventolin HFA] 90 mcg/actuation HFA aerosol inhaler 2 puff inhalation Q6H PRN (Reason: Respiratory Distress) acetaminophen [Tylenol Extra Strength] 500 mg tablet 1,000 mg PO Q6H PRN (Reason: Pain) paroxetine HCl 40 mg tablet 40 mg PO BEDTIME 30 Days Qty: 30 2RF buspirone 10 mg tablet 10 mg PO BID Qty: 180 1RF lorazepam 0.5 mg tablet 0.5 mg PO TID PRN (Reason: anxiety) Qty: 90 1RF Rx Instructions: can cause balance problems mirtazapine 7.5 mg tablet 7.5 mg PO BEDTIME Qty: 30 1RF Referrals: [facility] – [place] [facility] [Provider Group] - 1 week Arnulfo Villalba MD [Primary Care Provider] - 5 days Interventions: ED Discharge Assessment Last Done: 02/11/25 13:15 Discharge Date/Time: 02/11/25 13:24 Print Language: Welsh
[2025-02-11 10:40] LABS: MANUAL DIFF FLAG NO
[2025-02-11 10:44] LABS: Basophils Percent Auto 0.6 % (0-2); Eosinophils Percent Auto 0.8 % (0-4); Hematocrit 31.7 % (37.0-47.0); Hemoglobin 10.1 g/dl (12.0-16.0); Imm Gran Abs Auto 0.02 X10*3/uL (0.00-0.03); Imm Gran Pct Auto 0.4 % (0.0-0.4); Lymphocytes Absolute Auto 1.2 X10*3/uL (1.2-4.9); Lymphocytes Percent Auto 23.6 % (20-40); Mean Corpuscular HGB Conc 31.9 g/dl (31.0-35.0); Mean Corpuscular Volume 78.5 fL (80.0-98.0); Mean Platelet Volume 8.9 fL (9.4-12.3); Monocytes Absolute Auto 0.5 X10*3/uL (0.1-1.2); Monocytes Percent Auto 10.2 % (2-11); Neutrophils Absolute Auto 3.2 x10*3/uL (2.0-8.3); Neutrophils Percent Auto 64.4 % (45-73); Platelet Count 398 X10*3/uL (160-400); Red Blood Count 4.04 X10*6/uL (4.20-5.50); Red Cell Distribution Width 13.7 % (11.0-16.0)
[2025-02-11] MEDS: Acetaminophen 325 MG TABLET 650 MG PO (10:52)
[2025-02-11] MEDS: ondansetron HCL 4 MG/2 ML VIAL IVPUSH (10:52)
[2025-02-11] MEDS: 0.9 % Sodium Chloride 1,000 ML 999 ML IV (10:53)
[2025-02-11 10:55] LABS: Alanine Aminotransferase 17 U/L (0-31); Albumin Level 3.9 g/dL (3.5-5.0); Alkaline Phosphatase 116 U/L (39-117); Anion Gap 16 (12-20); Aspartate Amino Transferase 28 U/L (5-31); Bilirubin Total 0.4 mg/dL (0.0-1.0); Blood Urea Nitrogen 7 mg/dL (9-16); Calcium 8.7 mg/dL (8.4-10.2); Carbon Dioxide 19 mmol/L (22-29); Chloride 104 mmol/L (96-108); Creatinine Clr Calc Pharmacy 51.8; Estimated Glomerular Filt Rate > 60; Glucose Random 98 mg/dL (60-115); Lipase 14 U/L (8-78); Magnesium 1.6 mg/dL (1.6-2.6); Potassium 3.4 mmol/L (3.3-5.1); Sodium 136 mmol/L (135-145); Total Protein 6.8 g/dL (6.5-8.0)
[2025-02-11] MEDS: iohexoL 350 MG/ML 100 ML INFUS..BTL 85 ML IV (11:18)
[2025-02-11 12:03] VITALS: BP 142/88; PULSE 93; RESP 16; TEMP 36.9; O2SAT 96
[2025-02-11 12:20] LABS: Appearance Urine Clear; Color Urine Yellow; Glucose Urine UA Negative (Negative); Leukocyte Esterase Urine Negative (Negative); Nitrite Urine Negative (Negative); Specific Gravity - Urine >= 1.030 (1.005-1.025); Urine Blood Negative (Negative); Urine Ketones 15 mg/dL (Negative); Urine Protein Negative (Neg-Trace)
[2025-02-11 13:15] VITALS: BP 144/92; PULSE 78; RESP 18; TEMP 36.6; O2SAT 98
== END 2025-02-11 13:24 | disposition home or self-care (01) ==
PROVIDERS: Registered Nurse Emergency; Emergency Provider Emergency Medicine; PCP Internal Medicine
DX: K57.32 Diverticulitis of large intestine without perforation or abscess without bleeding (principal); R10.2 Pelvic and perineal pain; R11.0 Nausea; R19.7 Diarrhea, unspecified; Z79.899 Other long term (current) drug therapy; Z87.891 Personal history of nicotine dependence
CPT/HCPCS: 36415; 74177; 80053; 81003; 83690; 83735; 85025; 96360; 96361; 99284; 99285; J2405; Q9967

== ENCOUNTER → 2025-02-11 10:33 | Outpatient (BNV) | payer MEDICARE, SELFPAY | PROVIDERS: Emergency Provider Emergency Medicine; PCP Internal Medicine; Visit Provider Radiology Vascular & Interventional Radiology | DX: R10.30 Lower abdominal pain, unspecified (principal) | CPT/HCPCS: 74177 ==

== ENCOUNTER 2025-03-01 10:40 | Outpatient (REF) | payer MEDICARE, SELFPAY ==
--- NOTE | ~2025-03-01 | US_ITS ---
EXAMINATION: MM DIAGNOSTIC DIGITAL BREAST TOMOSYNTHESIS, BILATERAL Limited left breast ultrasound. CLINICAL INFORMATION: Left breast pain. COMPARISON: Mammography: Comparison is made with relevant prior exams. TECHNIQUE: Digital breast mammography with tomosynthesis is performed in both the craniocaudal and mediolateral oblique views along with computer-aided detection (CAD). FINDINGS: There are scattered areas of fibroglandular density (ACR BI-RADS breast composition Category b). [place] marker at site of patient's pain in the central outer breast posterior depth without underlying abnormality. There are no significant masses, abnormal calcifications, or other abnormalities. Targeted color Doppler ultrasound in the outer breast from 1-5 o'clock and axillary tail demonstrates normal fibronodular breast tissue. Results are provided to the patient at time of visit by the technologist. US/US breast LT limited mamm only IMPRESSION: No mammographic or sonographic abnormality to account for the patient's left breast pain and axillary pain. Recommend clinical evaluation and follow-up. ASSESSMENT: BI-RADS BI-RADS 1 - Negative RECOMMENDATION: 1 year F/U This patient's information was entered into a reminder system with a target due date for their next mammogram. Electronically signed by: Belen Kelley DO 03/01/2025 12:37 PM EDT
--- NOTE | ~2025-03-01 | MM_ITS ---
EXAMINATION: MM DIAGNOSTIC DIGITAL BREAST TOMOSYNTHESIS, BILATERAL Limited left breast ultrasound. CLINICAL INFORMATION: Left breast pain. COMPARISON: Mammography: Comparison is made with relevant prior exams. TECHNIQUE: Digital breast mammography with tomosynthesis is performed in both the craniocaudal and mediolateral oblique views along with computer-aided detection (CAD). FINDINGS: There are scattered areas of fibroglandular density (ACR BI-RADS breast composition Category b). [place] marker at site of patient's pain in the central outer breast posterior depth without underlying abnormality. There are no significant masses, abnormal calcifications, or other abnormalities. Targeted color Doppler ultrasound in the outer breast from 1-5 o'clock and axillary tail demonstrates normal fibronodular breast tissue. Results are provided to the patient at time of visit by the technologist. MM/MM tomosynthesis diagnostic BI IMPRESSION: No mammographic or sonographic abnormality to account for the patient's left breast pain and axillary pain. Recommend clinical evaluation and follow-up. ASSESSMENT: BI-RADS BI-RADS 1 - Negative RECOMMENDATION: 1 year F/U This patient's information was entered into a reminder system with a target due date for their next mammogram. Electronically signed by: Belen Kelley DO 03/01/2025 12:37 PM EDT
== END 2025-03-01 10:41 | disposition home or self-care (01) ==
LOC: HO.MAMMO 10:40
PROVIDERS: PCP Internal Medicine; Visit Provider Internal Medicine
DX: N63.32 Unspecified lump in axillary tail of the left breast (principal)
CPT/HCPCS: 76642; 77062; 77066

== ENCOUNTER → 2025-03-01 11:00 | Outpatient (BNV) | payer MEDICARE, SELFPAY | PROVIDERS: PCP Internal Medicine; Visit Provider Internal Medicine | DX: R92.8 Other abnormal and inconclusive findings on diagnostic imaging of breast (principal) | CPT/HCPCS: 76642; 77066; G0279 ==

== ENCOUNTER 2025-03-03 10:43 | Outpatient (AMB) | payer MEDICARE, SELFPAY ==
--- NOTE | 2025-03-03 10:57 | A.OFFPSYCH_ITS ---
Intake Intake Visit Reasons: depression Allergies Codeine Sulfate Allergy (Severe, Verified 04/07/25 10:14) Anaphylaxis Antihistamine Allergy (Intermediate, Verified 04/07/25 10:14) Shakiness egg Allergy (Intermediate, Verified 04/07/25 10:14) Heartburn Sulfa (Sulfonamide Antibiotics) [SULFA (SULFONAMIDE ANTIBIOTICS)] Allergy (Intermediate, Verified 04/07/25 10:14) RASH diphenhydramine [From Benadryl] Allergy (Verified 04/07/25 10:14) sweats, palpitation cefuroxime Adverse Reaction (Verified 04/07/25 10:14) delerium ,paranoia HPI- Psychiatric Chief Complaint: depression HPI Narrative: Pt seen in f/u , patient has only been stable her niece has not moved out and continues to live there with her girlfriend. The patient continues to have intermittent medical difficulty still having GI symptoms and diffuse pain. Some difficulty at times with sleep she did not tolerate the mirtazapine 7.5 or 15 mg felt too sedated the next day continues periods of anxiety rumination Past Psychiatric History: Patient has chronic history of panic somatic preoccupations mild depressive episodes. Patient has generally been doing okay she lives with her niece in the same building to family house. Some chronic anxiety related to chronic allergy symptoms have been encouraged visit to platform inspector or ENT which she has not pursued Librium has been cut in half over time history of panic attacks and anxiety generally stable with Paxil buspirone denies over medication does have some degree of chronic balance problems week and discussed possibility of physical therapy for strengthening and balance. She is also seen by rheumatology Mental Status Exam Mental Status Exam Narrative: Mental Status Exam Narrative: Appearance: Behavior: Cooperative appropriate psychomotor: Within normal limits Speech: Normal volume and prosody Thought process logical Thought content: Concerns regarding her phy health Mood: Depressed Affect: constricted SI:denies HI:denies VH/AH:none Delusions: None Insight/judgment: Seems more reflective Memory/cog: Intact Assessment and Plan Assessment & Plan (1) Panic disorder [episodic paroxysmal anxiety]: Status: Acute Code(s): F41.0 - Panic disorder [episodic paroxysmal anxiety] (2) Generalized anxiety disorder: Status: Acute Code(s): F41.1 - Generalized anxiety disorder Plan pt on paxil 40 mg will retry mirtazapine at a lower dose 3.75-70 0.5 mg lorazepam lowered to 0.5 mg p.o. b.i.d. PRN anxiety patient try and limit lorazepam to lowest dose possible discussed risks benefits alternatives. Patient has not been willing to see a therapist on a regular basis Stop librium replaced by lorazepam Medications: Changed From lorazepam can cause balance problems 0.5 mg PO TID PRN 90 tabs 1RF anxiety To lorazepam can cause balance problems 0.5 mg PO BID PRN 60 tabs 2RF anxiety From mirtazapine 7.5 mg PO BEDTIME 30 tabs 1RF To mirtazapine 3.75 mg (1/2 x 7.5 mg) PO BEDTIME 30 tabs 1RF From paroxetine HCl 40 mg PO BEDTIME 30 days 30 tabs 2RF To paroxetine HCl 40 mg PO BEDTIME 90 tabs 1RF 90 days Refilled buspirone 10 mg PO BID 180 tabs 1RF Discontinued chlordiazepoxide HCl Discontinued Reason: None 5 mg PO TID PRN 15 caps 0RF anxiety Counseling and coordination of Care Details: I spent [] minutes reviewing the record, seeing the patient and documenting in the medical record. Counseling provided to the patient/caregiver as outlined below. Addressed patient/caregiver concerns regarding current medication regime including effective adherence. Addressed patient/caregiver concerns regarding diagnosis and prognosis including accuracy of diagnosis, prognosis over time, impact of diagnosis. Addressed patient/caregiver concerns regarding impact of recent stressors. 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 Headache Sinusitis Asthma Generalized anxiety disorder Mood disorder, drug-induced Diaphragmatic hernia Panic disorder [episodic paroxysmal anxiety] Dysthymia Hypertension Diverticulitis CVA (cerebral vascular accident) Vertigo Tubular adenoma of colon Positive colorectal cancer screening using Cologuard test Irritable bowel syndrome with both constipation and diarrhea GERD (gastroesophageal reflux disease) Depression with anxiety HTN (hypertension), benign Lupus Surgical History S/P repair of paraesophageal hernia H/O wrist surgery Hx of colonoscopy History of cholecystectomy Family History Father CAD (coronary artery disease) Maternal Grandmother HTN (hypertension), benign Father No problems noted. Mother Hypertension Asthma COPD (chronic obstructive pulmonary disease) Breast cancer, Onset Age: 101 Social History Household Members: Family Household Members Other:: niece lives upstairs Housing: House Are you a primary respiratory care specialist to a significant other at home: No Do you presently have visiting nurse or other home services: No Alcohol intake: former Patient Tobacco Use Status: Former Tobacco user Tobacco use type: Cigarette Years Smoked: quit greater than 10 years ago Second Hand Smoke Exposure: No Advance Directives Date on File: 04/07/23 service: No Current occupational status: retired 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 The mother is she has a brother with PTSD family history of depression She never no children Substance History: none Trauma History: NA Coding Level of Care Code Est Pt Level 4 (37031) Diagnoses Panic disorder [episodic paroxysmal anxiety] F41.0 Generalized anxiety disorder F41.1
== END 2025-03-03 11:04 | disposition home or self-care (01) ==
LOC: HO.HOP 10:43
PROVIDERS: PCP Internal Medicine; Visit Provider Psychiatry & Neurology Psychiatry
DX: F41.0 Panic disorder [episodic paroxysmal anxiety] (principal); F41.1 Generalized anxiety disorder
CPT/HCPCS: 99214

== ENCOUNTER → 2025-03-03 10:43 | Outpatient (BNVA) | payer MEDICARE, SELFPAY | PROVIDERS: PCP Internal Medicine; Visit Provider Psychiatry & Neurology Psychiatry | DX: F41.0 Panic disorder [episodic paroxysmal anxiety] (principal); F41.1 Generalized anxiety disorder | CPT/HCPCS: 99212 ==

== ENCOUNTER 2025-03-06 11:32 | Outpatient (REF) | payer MEDICARE, SELFPAY ==
[2025-03-07 10:13] LABS: CDiff Gene PCR NEGATIVE (Negative)
== END 2025-03-06 11:33 | disposition home or self-care (01) ==
LOC: HO.LAB 11:32
PROVIDERS: PCP Internal Medicine; Visit Provider Internal Medicine
DX: K57.92 Diverticulitis of intestine, part unspecified, without perforation or abscess without bleeding (principal)
CPT/HCPCS: 87493

== ENCOUNTER 2025-03-08 13:10 | Outpatient (AMB) | payer MEDICARE, SELFPAY ==
--- NOTE | 2025-03-08 13:18 | MHC.OFFVIS ---
Vital Signs 03/08/25 13:20 Height 5 ft Weight 119 lb 0.794 oz BMI 23.2 BP 147/79 H Blood Pressure Location Lt brachial Position Sitting Pulse 91 Intake Visit Reasons: er f/u Intake Note: Renata presents in the office as a follow up to being seen in the ED. CC: She states that she has nausea, diarrhea, pains in the stomach. She states she gets the anxus guts. She is unsure what medications she is on and she states that she is not taking any of the medications that were given in the ED as she has run out of all of those. Loss of appetite and she is losing weight due to unable to eat. Industry Analyst Required: No Allergies Codeine Sulfate Allergy (Severe, Verified 03/08/25 13:20) Anaphylaxis Antihistamine Allergy (Intermediate, Verified 03/08/25 13:20) Shakiness egg Allergy (Intermediate, Verified 03/08/25 13:20) Heartburn Sulfa (Sulfonamide Antibiotics) [SULFA (SULFONAMIDE ANTIBIOTICS)] Allergy (Intermediate, Verified 03/08/25 13:20) RASH diphenhydramine [From Benadryl] Allergy (Verified 03/08/25 13:20) sweats, palpitation cefuroxime Adverse Reaction (Verified 03/08/25 13:20) leon tirado HPI Comments Details: 74 y.o F with past medical history of hypertension, GERD, rheumatoid arthritis, history of CVA, paraesophageal hernia s/p repair 09/13/2024 laparoscopic lysis of adhesions and gastropexy who is here for inpatient follow up. Seen in hospital 12/05/24 for hematemesis and diverticulitis. Following up today to schedule egd/colo. To recall had atypical focal ascending colon wall thickening on CT done in hospital last month. Her last colo was in 2019 (x2 T.A in ASCENDING colon). Currently reports no further vomiting since hospitalization. No abd pain, change in stool color or consistency. No unintentional weight loss. 03/08/25: Was seen in ER last month for another episode of acute uncomplicated diverticulitis. CT 02/11/25: There is abnormal thickening along the sigmoid colon in the region of diverticulosis. Currently still has lower abd pain with cramping with bloating worse with food. Has also been having diarrhea since her visit to ER last month. Has 10 BMs per day! All watery or jello consistency. No blood in stool. No fevers or chills. Nausea but no vomiting. Has been avoiding ton eat much due to abd pain and diarrhea after eating. CDiff negative 03/06/25. Diet is mostly turkey sandwixhes, potatoes, meat. Minimal fiber. CT reviewed has focal thickening around sigmoid. 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 Headache Sinusitis Asthma Generalized anxiety disorder Mood disorder, drug-induced Diaphragmatic hernia Panic disorder [episodic paroxysmal anxiety] Dysthymia Hypertension Diverticulitis CVA (cerebral vascular accident) Vertigo Tubular adenoma of colon Positive colorectal cancer screening using Cologuard test Irritable bowel syndrome with both constipation and diarrhea GERD (gastroesophageal reflux disease) Depression with anxiety HTN (hypertension), benign Lupus Surgical History S/P repair of paraesophageal hernia H/O wrist surgery Hx of colonoscopy History of cholecystectomy Family History Father CAD (coronary artery disease) Maternal Grandmother HTN (hypertension), benign Father No problems noted. 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, 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 Review of Systems Const All systems reviewed & are unremarkable except as noted in HPI and below Physical Exam Vital Signs: Last Vital Signs Pulse 91 03/08/25 13:20 BP 147/79 H 03/08/25 13:20 BMI result Body Mass Index 23.2 No apparent distress Nonicteric Abdomen soft, nondistended Alert and oriented x3, uses cane to ambulate Assessment & Plan Assessment & Plan (1) Segmental colitis associated with diverticulosis: Code(s): K50.10 - Crohn's disease of large intestine without complications; K57.30 - Diverticulosis of large intestine without perforation or abscess without bleeding Category: Medical (2) Colon wall thickening: Code(s): K63.9 - Disease of intestine, unspecified Category: Medical (3) Acute diverticulitis: Code(s): K57.92 - Diverticulitis of intestine, part unspecified, without perforation or abscess without bleeding Category: Medical (4) Chronic diarrhea: Code(s): K52.9 - Noninfective gastroenteritis and colitis, unspecified Category: Medical Plan Has had lower abdominal cramping with chronic diarrhea x 4 weeks. Reviewed with the patient that differentials include segmental colitis associated with diverticulosis, IBS overlap, malignancy less likely given colonoscopy findings 5 years ago. C diff ruled out. Since patient had minimal improvement with antibiotic course this time, will favor treating this as SCAD and trial mesalamine enema. In addition would also recommend adding fiber as a bulking agent. Taking probiotics. Plan: - Mesalamine enema x 14 days - add fiber 1 tsp mixed in water every day, increase to 1 tbsp after week - EGD/colon to be booked within 8 weeks of ER visit. Pt requests miralax prep, Rxed. Follow up after egd/colo Medications: New mesalamine 4 grams (60 mL) WI BEDTIME 840 mL 0RF 14 days K50.10 - Crohn's disease of large intestine without complications, K57.30 - Diverticulosis of large intestine without perforation or abscess without bleeding polyethylene glycol 3350 (Miralax) mix in 64 oz of gatorade for colonoscopy prep 238 grams PO ONCE 238 grams 0RF Coding Level of Care Code Est Pt Level 4 (66944) Diagnoses Segmental colitis associated with diverticulosis K50.10; K57.30 Colon wall thickening K63.9 Acute diverticulitis K57.92 Chronic diarrhea K52.9
[2025-03-08 13:20] VITALS: BP 147/79; PULSE 91; BMI 23.2
== END 2025-03-08 16:07 | disposition home or self-care (01) ==
LOC: HO.HGI 13:10
PROVIDERS: PCP Internal Medicine; Visit Provider Internal Medicine
DX: K50.10 Crohn's disease of large intestine without complications (principal); K57.30 Diverticulosis of large intestine without perforation or abscess without bleeding; K63.9 Disease of intestine, unspecified; K57.92 Diverticulitis of intestine, part unspecified, without perforation or abscess without bleeding; K52.9 Noninfective gastroenteritis and colitis, unspecified
CPT/HCPCS: 99214

== ENCOUNTER → 2025-03-08 13:10 | Outpatient (BNVA) | payer MEDICARE, SELFPAY | PROVIDERS: PCP Internal Medicine; Visit Provider Internal Medicine | DX: K50.10 Crohn's disease of large intestine without complications (principal); K57.30 Diverticulosis of large intestine without perforation or abscess without bleeding; K63.9 Disease of intestine, unspecified; K57.92 Diverticulitis of intestine, part unspecified, without perforation or abscess without bleeding; K52.9 Noninfective gastroenteritis and colitis, unspecified | CPT/HCPCS: 99212 ==

== ENCOUNTER 2025-03-23 11:33 | Outpatient (REF) | payer MEDICARE, SELFPAY ==
[2025-03-23 11:59] LABS: Blood Urea Nitrogen 10 mg/dL (9-16); Estimated Glomerular Filt Rate > 60
== END 2025-03-23 11:34 | disposition home or self-care (01) ==
LOC: HO.LNP 11:33
PROVIDERS: Visit Provider Internal Medicine
DX: K57.92 Diverticulitis of intestine, part unspecified, without perforation or abscess without bleeding (principal)
CPT/HCPCS: 82565; 84520

== ENCOUNTER 2025-03-27 07:23 | Emergency (ER) | payer MEDICARE, SELFPAY ==
--- NOTE | ~2025-03-27 | CT_ITS ---
CLINICAL HISTORY: Abdominal pain, diverticulitis CT abdomen and pelvis with contrast Comparison: 02/11/2025 Findings: No significant change in moderate sized hiatal hernia. Mild left basilar bandlike atelectasis/scarring. Too small to characterize hepatic hypodensities. Gallbladder not seen and be surgically absent. Kidneys, spleen, pancreas, and adrenals are unremarkable. Sigmoid colonic diverticulosis and up to 10 mm circumferential thickening of the sigmoid colonic wall are redemonstrated. No evidence of neighboring fat stranding. Somewhat prominent vasa recta at level of the sigmoid colon and rectum as before. Mild apparent circumferential thickening of the wall of the nondistended transverse and descending colon was also seen on the prior exam and may be artifactual/due to underdistention. No neighboring fat stranding. Subserosal calcified uterine fibroid. The bones are intact. Spinal degenerative changes. Atherosclerotic calcifications. IMPRESSION: No definite evidence of diverticulitis. Redemonstration of diverticulosis and circumferential wall thickening at level of the sigmoid colon. Although the wall thickening may be secondary to the diverticulosis, if not already performed, further evaluation with CT colonoscopy, colonoscopy, or stool blood testing may be of value. No significant change in moderate sized hiatal hernia. This document has been electronically signed by: Rosalva Mendoza MD on 03/27/2025 12:00:52
[2025-03-27 07:26] VITALS: BP 175/88; PULSE 79; RESP 19; TEMP 36.7; O2SAT 98; BMI 23.2
--- NOTE | 2025-03-27 08:06 | ECG_ITS ---
Test Reason : ABD PAIN Blood Pressure : */* mmHG Vent. Rate : 72 BPM Atrial Rate : 72 BPM P-R Int : 152 ms QRS Dur : 68 ms QT Int : 402 ms P-R-T Axes : 61 73 47 degrees QTcB Int : 440 ms Normal sinus rhythm Cannot rule out Inferior infarct (cited on or before 10-Sep-2024) Abnormal ECG When compared with ECG of 10-Sep-2024 18:26, Questionable change in initial forces of Inferior leads T wave inversion now evident in Anterior leads Referred By: Charles Freire Electronically Signed By: Dave Pope
--- NOTE | 2025-03-27 08:07 | ED.ABDPAIN ---
HPI - Abdominal Pain General Chief Complaint: Abdominal Pain Stated Complaint: Diverticulitis Time Seen by Provider: 03/27/25 07:51 Source: patient Mode of arrival: ambulatory Limitations: no limitations History of Present Illness ED Provider: DR. Freire HPI narrative: A 74-year-old female with history of diverticulitis and Crohn's disease, patient had 2 episode of acute diverticulitis that was treated with Augmentin on 12/04/2024 and 02/11/2025. Patient also was seen by GI Dr. Alcala on 03/08/2025 patient is supposed to have endoscopy arranged by GI. Patient presented today for feeling that the infection is not totally cleared, always complaining of abdominal pain, chills, and nausea, no vomiting, decreased appetite, and losing weight secondary to not eating normally. Related Data Home Medications ?Medication ?Instructions ?Recorded ?Confirmed fluticasone propionate 50 1 spray intranasal DAILY PRN 08/08/20 12/05/24 mcg/actuation nasal Allergic Symptoms spray,suspension albuterol sulfate 90 mcg/actuation 2 puff inhalation Q6H PRN 10/22/21 12/05/24 aerosol inhaler (Ventolin HFA) Respiratory Distress acetaminophen 500 mg tablet 1,000 mg PO Q6H PRN Pain 07/24/22 12/05/24 (Tylenol Extra Strength) lisinopril 20 mg tablet 20 mg PO DAILY 10/24/22 12/05/24 magnesium chloride 71.5 mg 1 tab PO DAILY 10/24/22 12/05/24 (magnesium chloride) tablet,delayed release (Slow-Mag) alendronate 70 mg tablet 70 mg PO TH@0900 06/26/24 12/05/24 Previous Rx's ?Medication ?Instructions ?Recorded atorvastatin 40 mg tablet 40 mg PO BEDTIME #30 tabs 05/27/21 amlodipine 5 mg tablet 5 mg PO DAILY #30 tabs 10/26/22 carvedilol 25 mg tablet 12.5 mg (1/2 x 25 mg) PO BID #90 12/08/24 tabs levofloxacin 750 mg tablet 750 mg PO BEDTIME #3 tabs 12/08/24 amoxicillin 875 mg-potassium 1 tab PO TID 7 days #21 tabs 02/11/25 clavulanate 125 mg tablet buspirone 10 mg tablet 10 mg PO BID #180 tabs 03/03/25 lorazepam 0.5 mg tablet 0.5 mg PO BID PRN anxiety #60 tabs 03/03/25 mirtazapine 7.5 mg tablet 3.75 mg (1/2 x 7.5 mg) PO BEDTIME 03/03/25 #30 tabs paroxetine HCl 40 mg tablet 40 mg PO BEDTIME 90 days #90 tabs 03/03/25 mesalamine 4 gram/60 mL enema 4 g (60 mL) ND BEDTIME 14 days 03/08/25 #840 mL polyethylene glycol 3350 17 238 g PO ONCE #238 grams 03/08/25 gram/dose oral powder (Miralax) Allergies Allergy/AdvReac Type Severity Reaction Status Date / Time Codeine Sulfate Allergy Severe Anaphylaxis Verified 03/27/25 07:28 Antihistamine Allergy Intermediate Shakiness Verified 03/27/25 07:28 egg Allergy Intermediate Heartburn Verified 03/27/25 07:28 Sulfa (Sulfonamide Allergy Intermediate RASH Verified 03/27/25 07:28 Antibiotics) [SULFA (SULFONAMIDE ANTIBIOTICS)] diphenhydramine Allergy sweats, Verified 03/27/25 07:28 [From Benadryl] palpitation cefuroxime AdvReac delerium Verified 03/27/25 07:28 ,paranoia Review of Systems Review of Systems All other systems are reviewed and are negative Constitutional: Reports as per HPI and Reports no additional constitutional complaints Eyes: Reports as per HPI and Reports no additional eye complaints Reports system reviewed and no additional complaints, except as documented Cardiovascular: Reports as per HPI and Reports no additional cardiovascular complaints Respiratory: Reports as per HPI and Reports no additional respiratory complaints Gastrointestinal: Reports as per HPI and Reports no additional gastrointestinal complaints Genitourinary: Reports no additional female genitourinary complaints Musculoskeletal: Reports no additional musculoskeletal complaints Skin/Breast: Reports system reviewed and no additional complaints, except as docu Psychiatric: Reports no additional psychiatric complaints Endocrine: Reports no additional endocrine complaints Hematologic/Lymphatic: Reports no additional hematologic/lymphatic complaints Allergic/Immunologic: Reports no additional allergic/immunologic complaints Reports system reviewed and no additional complaints, except as documented and Reports Abnormal speech present PMFSH Past Medical History Medical History Major depression with psychotic features Abnormal EKG Pneumonia Abdominal pain Osteoporosis with pathological fracture Fracture of right ulnar styloid Fracture of right distal radius Dysuria Acute hyponatremia Drug-induced diarrhea 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 Headache Sinusitis Asthma Generalized anxiety disorder Mood disorder, drug-induced Diaphragmatic hernia Panic disorder [episodic paroxysmal anxiety] Dysthymia Hypertension Diverticulitis CVA (cerebral vascular accident) Vertigo Tubular adenoma of colon Positive colorectal cancer screening using Cologuard test Irritable bowel syndrome with both constipation and diarrhea GERD (gastroesophageal reflux disease) Depression with anxiety HTN (hypertension), benign Lupus Surgical History S/P repair of paraesophageal hernia H/O wrist surgery Hx of colonoscopy History of cholecystectomy Family History Family History Father CAD (coronary artery disease) Maternal Grandmother HTN (hypertension), benign Father No problems noted. Mother Hypertension Asthma COPD (chronic obstructive pulmonary disease) Social History Social History Household Members: Family Household Members Other:: niece lives upstairs Housing: House Are you a primary senior resident care director to a significant other at home: No Do you presently have visiting nurse or other home services: No Alcohol intake: former Patient Tobacco Use Status: Former Tobacco user Tobacco use type: Cigarette Years Smoked: quit greater than 10 years ago Smoked in Last 30 Days: No Second Hand Smoke Exposure: No Use of substances other than those prescribed or required for medical reasons: No Advance Directives: Yes Advance Directives on File: Yes Advance Directives Date on File: 04/07/23 Do you have a plan to hurt others: No Plan service: No Current occupational status: retired 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 Blood pressure elevated. Heart rate normal. Respiratory rate normal. Temperature normal. Oxygen saturation normal. Appearance: Alert. Oriented X3. No acute distress. Head: Normal external exam. Normocephalic. Atraumatic. No Wyman signs noted. No raccoon eyes noted Eyes: PERRLA. EOMI. Conjunctiva and sclera normal. Eyelids normal. ENT: TM's Normal. Pharynx normal. Uvula midline. Moist mucous membranes. No trismus noted. No drooling noted. No muffled voice noted. Neck: Normal inspection. Neck supple. FROM. No adenopathy. Thyroid Normal. No meningeal signs. No neck mass noted. CVS: Normal heart rate and rhythm. Heart sound normal. No murmurs noted. Pulses normal throughout. Respiratory: No respiratory distress. Painless inspiration. Breath sounds normal. No wheezes/rales/rhonchi noted. Chest nontender. No accessory muscle usage noted or decreased air movement noted. Abdomen: Soft and nontender. Bowel sounds normal in all 4 quadrants. No distention noted. No organomegaly noted. No visible injury noted. Back: No CVA tenderness. Full range of motion noted. Skin: Skin warm and dry. Normal skin color. Normal skin turgor. No rashes/lesions/lacerations noted. Extremities: No lower extremity edema. Extremities exhibit normal range of motion. Extremities nontender. Neuro: Oriented X 3. Cranial nerve exam: II-XII are grossly intact No motor deficit. No sensory deficit. Reflexes normal. Course Reevaluation(s) Reevaluation #1: 74-year-old female with history of diverticular disease, came in with an abdominal pain, CT abdomen pelvis today reveals no acute diverticulitis. Patient supposed to see Dr. Alcala from GI service for endoscopy. Time: 12:27 Medical Decision Making Differential Diagnosis Differential Diagnoses: The differential diagnosis associated with the presentation includes (Diverticulitis, colitis, acute appendicitis, perforated viscus, pancreatitis, electrolyte derangement, severe anemia.) Admission/Observation Consideration of admission/observation: Escalation of care including admission/observation considered Lab Data MDM Lab Attestation statement: I reviewed the patient's lab results. 03/27/25 08:13 03/27/25 08:44 Labs: Lab Results 03/27/25 03/27/25 Range/Units 08:13 08:44 WBC 4.3 L (4.8-10.8) X10*3/uL RBC 4.48 (4.20-5.50) X10*6/uL Hgb 10.8 L (12.0-16.0) g/dl Hct 33.6 L (37.0-47.0) % MCV 75.0 L (80.0-98.0) fL MCH 24.1 L (27.0-33.0) pg MCHC 32.1 (31.0-35.0) g/dl RDW 15.1 (11.0-16.0) % Plt Count 307 (160-400) X10*3/uL MPV 8.9 L (9.4-12.3) fL Immature Gran % (Auto) 0.2 (0.0-0.4) % Neut % (Auto) 68.3 (45-73) % Lymph % (Auto) 22.2 (20-40) % [place] % (Auto) 7.7 (2-11) % Eos % (Auto) 0.7 (0-4) % Baso % (Auto) 0.9 (0-2) % Lymph # (Auto) 1.0 L (1.2-4.9) X10*3/uL [place] # (Auto) 0.3 (0.1-1.2) X10*3/uL Eos # (Auto) 0.0 (0.0-0.4) X10*3/uL Baso # (Auto) 0.0 (0.0-0.2) X10*3/uL Abs Immat Gran (auto) 0.01 (0.00-0.03) X10*3/uL Absolute Neuts (auto) 2.9 (2.0-8.3) x10*3/uL Absolute Nucleated RBC 0.000 (0.0-0.012) X10*3/uL Nucleated RBC % (auto) 0.0 (0.0-0.2) /100WBC Sodium 136 (135-145) mmol/L Potassium 3.9 (3.3-5.1) mmol/L Chloride 103 (96-108) mmol/L Carbon Dioxide 22 (22-29) mmol/L Anion Gap 15 (12-20) BUN 9 (9-16) mg/dL Creatinine 0.64 (0.5-1.4) mg/dL Estim Creat Clear Calc 54.5 Estimated GFR > 60 Random Glucose 104 (60-115) mg/dL Lactic Acid 1.1 (0.5-2.0) mmol/L Calcium 8.8 (8.4-10.2) mg/dL Total Bilirubin 0.4 (0.0-1.0) mg/dL Direct Bilirubin 0.2 (0.0-0.5) mg/dL AST 25 (5-31) U/L ALT 14 (0-31) U/L Alkaline Phosphatase 67 (39-117) U/L Troponin I High Sens 9.0 D (<3.5-17.0) ng/L Total Protein 6.5 (6.5-8.0) g/dL Albumin 3.9 (3.5-5.0) g/dL Lipase 16 (8-78) U/L Independent Interpretation I performed an independent interpretation of an: CT Scan (Abdomen pelvis:No definite evidence of diverticulitis. Redemonstration of diverticulosis and circumferential wall thickening at level of the sigmoid colon. Although the wall thickening may be secondary to the diverticulosis, if not already performed, further evaluation with CT colonoscopy, colon) Radiology Impression Discussion of test interpretation with radiology: I have reviewed the radiologist's reading. Medications Administered Discontinued Medications Generic Name Dose Route Start Last Admin Trade Name Freq PRN Reason Stop Dose Admin Diatrizoate Meglum/Diatrizoate Sod 30 ml 03/27/25 10:20 03/27/25 10:20 Diatrizoate Meglumine, Sodium 30 Ml Solution PO 03/27/25 10:21 30 ml ONCE ONE Administration Iohexol 100 ml 03/27/25 10:20 03/27/25 10:21 Iohexol 350 Mg/Ml 100 Ml Infus..Btl IV 03/27/25 10:21 85 ml ONCE ONE Administration Discharge Plan Discharge Clinical Impression: Diverticular disease Patient Disposition: Home, Self-Care Instructions: Diverticulosis (ED) Prescriptions: No Action atorvastatin 40 mg Tablet 40 mg PO BEDTIME Qty: 30 0RF lisinopril 20 mg tablet 20 mg PO DAILY Slow-Mag 71.5 mg tablet,delayed release (DR/EC) 1 tab PO DAILY amlodipine 5 mg Tablet 5 mg PO DAILY Qty: 30 0RF Protocol: Hold for SBP< HOLD for SBP < : 90 alendronate 70 mg tablet 70 mg PO TH@0900 Rx Instructions: Take 1 tab once weekly, 1st thing in the morning, on an empty stomach, with a large glass of water (at least 6 oz) and stay upright for 30 minutes levofloxacin 750 mg Tablet 750 mg PO BEDTIME Qty: 3 0RF carvedilol 25 mg tablet 12.5 mg PO BID Qty: 90 0RF amoxicillin-pot clavulanate 875-125 mg tablet 1 tab PO TID 7 Days Qty: 21 0RF fluticasone propionate 50 mcg/actuation spray,suspension 1 spray intranasal DAILY PRN (Reason: Allergic Symptoms) albuterol sulfate [Ventolin HFA] 90 mcg/actuation HFA aerosol inhaler 2 puff inhalation Q6H PRN (Reason: Respiratory Distress) acetaminophen [Tylenol Extra Strength] 500 mg tablet 1,000 mg PO Q6H PRN (Reason: Pain) mirtazapine 7.5 mg tablet 3.75 mg PO BEDTIME Qty: 30 1RF buspirone 10 mg tablet 10 mg PO BID Qty: 180 1RF lorazepam 0.5 mg tablet 0.5 mg PO BID PRN (Reason: anxiety) Qty: 60 2RF Rx Instructions: can cause balance problems paroxetine HCl 40 mg tablet 40 mg PO BEDTIME 90 Days Qty: 90 1RF mesalamine 4 gram/60 mL enema 4 g ND BEDTIME 14 Days Qty: 840 0RF polyethylene glycol 3350 [Miralax] 17 gram/dose powder 238 g PO ONCE Qty: 238 0RF Rx Instructions: mix in 64 oz of gatorade for colonoscopy prep Referrals: Arnulfo Villalba MD [Primary Care Provider] - Nevin Alcala MD [Physician] - Print Language: Iranian
[2025-03-27 08:19] LABS: MANUAL DIFF FLAG NO
[2025-03-27 08:20] LABS: Basophils Percent Auto 0.9 % (0-2); Eosinophils Percent Auto 0.7 % (0-4); Hematocrit 33.6 % (37.0-47.0); Hemoglobin 10.8 g/dl (12.0-16.0); Imm Gran Abs Auto 0.01 X10*3/uL (0.00-0.03); Imm Gran Pct Auto 0.2 % (0.0-0.4); Lymphocytes Percent Auto 22.2 % (20-40); Mean Corpuscular HGB Conc 32.1 g/dl (31.0-35.0); Mean Corpuscular Hemoglobin 24.1 pg (27.0-33.0); Mean Platelet Volume 8.9 fL (9.4-12.3); Monocytes Absolute Auto 0.3 X10*3/uL (0.1-1.2); Monocytes Percent Auto 7.7 % (2-11); Neutrophils Absolute Auto 2.9 x10*3/uL (2.0-8.3); Neutrophils Percent Auto 68.3 % (45-73); Platelet Count 307 X10*3/uL (160-400); Red Blood Count 4.48 X10*6/uL (4.20-5.50); Red Cell Distribution Width 15.1 % (11.0-16.0); White Blood Count 4.3 X10*3/uL (4.8-10.8)
[2025-03-27 08:32] LABS: Lactic Acid 1.1 mmol/L (0.5-2.0)
[2025-03-27 09:07] LABS: Alanine Aminotransferase 14 U/L (0-31); Albumin Level 3.9 g/dL (3.5-5.0); Alkaline Phosphatase 67 U/L (39-117); Anion Gap 15 (12-20); Aspartate Amino Transferase 25 U/L (5-31); Bilirubin Direct 0.2 mg/dL (0.0-0.5); Bilirubin Total 0.4 mg/dL (0.0-1.0); Blood Urea Nitrogen 9 mg/dL (9-16); Calcium 8.8 mg/dL (8.4-10.2); Carbon Dioxide 22 mmol/L (22-29); Chloride 103 mmol/L (96-108); Creatinine Clr Calc Pharmacy 54.5; Estimated Glomerular Filt Rate > 60; Glucose Random 104 mg/dL (60-115); Lipase 16 U/L (8-78); Potassium 3.9 mmol/L (3.3-5.1); Sodium 136 mmol/L (135-145); Total Protein 6.5 g/dL (6.5-8.0)
[2025-03-27] MEDS: Diatrizoate Meglumine, Sodium 30 ML SOLUTION PO (10:20)
[2025-03-27] MEDS: iohexoL 350 MG/ML 100 ML INFUS..BTL IV (10:21)
[2025-03-27 10:35] VITALS: BP 180/59; PULSE 71; RESP 17; O2SAT 99
[2025-03-27 12:39] VITALS: BP 180/59; PULSE 71; RESP 17; TEMP 36.8; O2SAT 99
== END 2025-03-27 12:40 | disposition home or self-care (01) ==
PROVIDERS: Emergency Provider Emergency Medicine; PCP Internal Medicine
DX: K57.30 Diverticulosis of large intestine without perforation or abscess without bleeding (principal); R10.9 Unspecified abdominal pain
CPT/HCPCS: 36415; 74177; 80048; 80076; 83605; 83690; 84484; 85025; 87040; 93005; 99284; Q9967

== ENCOUNTER → 2025-03-27 08:05 | Outpatient (BNV) | payer MEDICARE, SELFPAY | PROVIDERS: Emergency Provider Emergency Medicine; PCP Internal Medicine; Visit Provider Radiology Diagnostic Radiology | DX: K57.30 Diverticulosis of large intestine without perforation or abscess without bleeding (principal); R10.9 Unspecified abdominal pain | CPT/HCPCS: 74177 ==

== ENCOUNTER → 2025-03-27 08:06 | Outpatient (BNV) | payer MEDICARE, SELFPAY | PROVIDERS: Emergency Provider Emergency Medicine; PCP Internal Medicine; Visit Provider Internal Medicine Cardiovascular Disease | DX: R94.31 Abnormal electrocardiogram [ECG] [EKG] (principal); R10.9 Unspecified abdominal pain | CPT/HCPCS: 93010 ==

== ENCOUNTER 2025-03-28 06:10 | Emergency (ER) | payer MEDICARE, SELFPAY ==
[2025-03-28 06:16] VITALS: BP 176/84; PULSE 82; RESP 16; TEMP 36.8; O2SAT 99; BMI 23.2
--- NOTE | 2025-03-28 08:08 | ED_ITS ---
HPI - General Adult General Chief complaint: Abdominal Pain Stated complaint: Abdominal Pain Time Seen by Provider: 03/28/25 07:57 Source: patient Mode of arrival: ambulatory Limitations: no limitations History of Present Illness ED Provider: Steve LYONS narrative: Patient is a 74-year-old female with history of diverticulitis, Crohn's, recently treated with Augmentin in December and January of this year for acute diverticulitis presenting to the emergency department with complaint of ongoing left lower quadrant abdominal pain. Reports associated nausea, vomiting and diarrhea. States she had 1 episode of vomiting this morning. Reports multiple episodes of diarrhea overnight and this morning. Decreased appetite and p.o. intake due to symptoms. Seen in this emergency department yesterday, had CT abdomen pelvis which did not show evidence of acute diverticulitis. Was advised to follow-up with her chart picker. Patient states that she was discharged home without any medications to control her symptoms and feel she has been unable to eat or drink. Reports she was able to tolerate some water this morning. Denies dysuria, frequency, hematuria or other urinary symptoms. Initial BP elevated, patient states she did not take her blood pressure medication this morning. Has not tried any OTC medications for her pain or other symptoms. MD complaint: Abdominal pain Onset (ago): day(s) Related Data Home Medications ?Medication ?Instructions ?Recorded ?Confirmed fluticasone propionate 50 1 spray intranasal DAILY PRN 08/08/20 12/05/24 mcg/actuation nasal Allergic Symptoms spray,suspension albuterol sulfate 90 mcg/actuation 2 puff inhalation Q6H PRN 10/22/21 12/05/24 aerosol inhaler (Ventolin HFA) Respiratory Distress acetaminophen 500 mg tablet 1,000 mg PO Q6H PRN Pain 07/24/22 12/05/24 (Tylenol Extra Strength) lisinopril 20 mg tablet 20 mg PO DAILY 10/24/22 12/05/24 magnesium chloride 71.5 mg 1 tab PO DAILY 10/24/22 12/05/24 (magnesium chloride) tablet,delayed release (Slow-Mag) alendronate 70 mg tablet 70 mg PO TH@0900 06/26/24 12/05/24 Previous Rx's ?Medication ?Instructions ?Recorded atorvastatin 40 mg tablet 40 mg PO BEDTIME #30 tabs 05/27/21 amlodipine 5 mg tablet 5 mg PO DAILY #30 tabs 10/26/22 carvedilol 25 mg tablet 12.5 mg (1/2 x 25 mg) PO BID #90 12/08/24 tabs levofloxacin 750 mg tablet 750 mg PO BEDTIME #3 tabs 12/08/24 amoxicillin 875 mg-potassium 1 tab PO TID 7 days #21 tabs 02/11/25 clavulanate 125 mg tablet buspirone 10 mg tablet 10 mg PO BID #180 tabs 03/03/25 lorazepam 0.5 mg tablet 0.5 mg PO BID PRN anxiety #60 tabs 03/03/25 mirtazapine 7.5 mg tablet 3.75 mg (1/2 x 7.5 mg) PO BEDTIME 03/03/25 #30 tabs paroxetine HCl 40 mg tablet 40 mg PO BEDTIME 90 days #90 tabs 03/03/25 mesalamine 4 gram/60 mL enema 4 g (60 mL) [place] BEDTIME 14 days 03/08/25 #840 mL polyethylene glycol 3350 17 238 g PO ONCE #238 grams 03/08/25 gram/dose oral powder (Miralax) loperamide 2 mg capsule 2 mg PO Q6H PRN loose stool #10 03/28/25 caps ondansetron 4 mg disintegrating 4 mg PO Q8H PRN nausea and 03/28/25 tablet vomiting #10 tabs Allergies Allergy/AdvReac Type Severity Reaction Status Date / Time Codeine Sulfate Allergy Severe Anaphylaxis Verified 03/28/25 06:19 Antihistamine Allergy Intermediate Shakiness Verified 03/28/25 06:19 egg Allergy Intermediate Heartburn Verified 03/28/25 06:19 Sulfa (Sulfonamide Allergy Intermediate RASH Verified 03/28/25 06:19 Antibiotics) [SULFA (SULFONAMIDE ANTIBIOTICS)] diphenhydramine Allergy sweats, Verified 03/28/25 06:19 [From Benadryl] palpitation cefuroxime AdvReac delerium Verified 03/28/25 06:19 ,paranoia Review of Systems 2 Review of Systems: As per HPI Yes all other systems are reviewed and are negative Constitutional: Constitutional: Reports as per HPI PMFSH Past Medical History Medical History Major depression with psychotic features Abnormal EKG Pneumonia Abdominal pain Osteoporosis with pathological fracture Fracture of right ulnar styloid Fracture of right distal radius Dysuria Acute hyponatremia Drug-induced diarrhea 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 Headache Sinusitis Asthma Generalized anxiety disorder Mood disorder, drug-induced Diaphragmatic hernia Panic disorder [episodic paroxysmal anxiety] Dysthymia Hypertension Diverticulitis CVA (cerebral vascular accident) Vertigo Tubular adenoma of colon Positive colorectal cancer screening using Cologuard test Irritable bowel syndrome with both constipation and diarrhea GERD (gastroesophageal reflux disease) Depression with anxiety HTN (hypertension), benign Lupus Surgical History S/P repair of paraesophageal hernia H/O wrist surgery Hx of colonoscopy History of cholecystectomy Family History Family History Father CAD (coronary artery disease) Maternal Grandmother HTN (hypertension), benign Father No problems noted. Mother Hypertension Asthma COPD (chronic obstructive pulmonary disease) Social History Social History Household Members: Family Household Members Other:: niece lives upstairs Housing: House Are you a primary college and career counselor to a significant other at home: No Do you presently have visiting nurse or other home services: No Alcohol intake: former Patient Tobacco Use Status: Former Tobacco user Tobacco use type: Cigarette Years Smoked: quit greater than 10 years ago Second Hand Smoke Exposure: No Advance Directives: Yes Advance Directives on File: Yes Advance Directives Date on File: 04/07/23 Do you have a plan to hurt others: No Plan service: No Current occupational status: retired 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 Blood pressure normal. Heart rate normal. Respiratory rate normal. Temperature normal. Oxygen saturation normal. Const General: cooperative, healthy appearing and no acute distress Orientation/consciousness: oriented to person, oriented to place, oriented to time and patient oriented x3 Limitations: no limitations HENMT Head: Yes normocephalic and Yes atraumatic Ears: external ears normal General nose exam: Normal external nose present Face and sinus: Yes face symmetric Mouth: oropharynx normal and moist mucous membranes Throat: Yes uvula midline Eyes Pupils: Equal, round and reactive pupils present Neck Neck: Yes normal visual inspection and Yes supple Resp Effort & Inspection: normal respiratory effort and able to speak in complete sentences Auscultation: clear to auscultation bilaterally Cardio Rate: regular rate Rhythm: regular rhythm Heart sounds: S1 normal heart sound present and S2 normal heart sound present GI Palpation (GI): Soft to palpation, nontender, no guarding and No Rebound tenderness present Auscultation: normoactive bowel sounds General: Yes no CVA tenderness Back/Spine/Pelvis Back: no CVA tenderness Skin General skin exam: elasticity normal and turgor normal Neuro General: oriented to person, oriented to place, oriented to time, patient oriented x3, moves all extremities, no focal motor deficits and CN's II-XI intact bilaterally Cranial nerves: Yes Equal, round and reactive pupils present Cognition (Neuro): normal cognition Extrem General: Yes full ROM, Yes no pedal edema and Yes no calf tenderness Psych Mental Status: mental status grossly normal Affect: normal affect Thought process: Normal thought process present Medications Administered Discontinued Medications Generic Name Dose Route Start Last Admin Trade Name Freq PRN Reason Stop Dose Admin Amlodipine Besylate 5 mg 03/28/25 09:10 03/28/25 09:27 Amlodipine Besylate 5 Mg Tablet PO 03/28/25 09:11 5 mg ONCE ONE Administration Protocol Sodium Chloride 1,000 mls @ 999 mls/hr 03/28/25 09:15 03/28/25 09:27 Ns IV 03/28/25 10:15 999 mls/hr .Q1H1M RAMONA Administration Ondansetron HCl 4 mg 03/28/25 09:10 03/28/25 09:27 Ondansetron Hcl 4 Mg/2 Ml Vial IVPUSH 03/28/25 09:11 4 mg ONCE ONE Administration Medical Decision Making Medical Decision Making MDM Narrative: Patient is a 74-year-old female with history of diverticulitis, Crohn's, recently treated with Augmentin in December and January of this year for acute diverticulitis presenting to the emergency department with complaint of ongoing left lower quadrant abdominal pain. On exam patient is awake, A+Ox3, VS WNL, afebrile, normal neurological exam without focal deficits, physical exam findings as above. Given reported symptoms and physical exam findings, initial differential includes but is not limited to electrolyte abnormality, UTI, colitis. Labs notable for no leukocytosis, stable H&H, no significant electrolyte abnormalities. Review of CT A/P results from yesterday notable for diverticulosis without evidence of diverticulitis with thickening of sigmoid colon. Patient unable to provide urine specimen during ED visit but denies any urinary symptoms. Feel she is stable for discharge home, able to tolerate PO fluids in the ED. Will send prescriptions for ondansetron and immodium, refer to GI for further evaluation and management. Return precautions discussed at bedside. Patient verbalized understanding of and agreement with plan. Differential Diagnosis Differential Diagnoses: The differential diagnosis associated with the presentation includes As per [facility] Admission/Observation Consideration of admission/observation: Escalation of care including admission/observation considered Patient would have been admitted to the hospital had their work up had any findings where hospital admission was appropriate and their clinical presentation warranted hospital admission. Lab Data [facility] Lab Attestation statement: I reviewed the patient's lab results. as per [facility] 03/28/25 08:43 03/28/25 08:43 Labs: Lab Results 03/28/25 Range/Units 08:43 WBC 5.4 (4.8-10.8) X10*3/uL RBC 4.46 (4.20-5.50) X10*6/uL Hgb 10.7 L (12.0-16.0) g/dl Hct 33.6 L (37.0-47.0) % MCV 75.3 L (80.0-98.0) fL MCH 24.0 L (27.0-33.0) pg MCHC 31.8 (31.0-35.0) g/dl RDW 15.1 (11.0-16.0) % Plt Count 291 (160-400) X10*3/uL MPV 8.9 L (9.4-12.3) fL Immature Gran % (Auto) 0.2 (0.0-0.4) % Neut % (Auto) 76.5 H (45-73) % Lymph % (Auto) 16.2 L (20-40) % Williamson % (Auto) 6.3 (2-11) % Eos % (Auto) 0.4 (0-4) % Baso % (Auto) 0.4 (0-2) % Lymph # (Auto) 0.9 L (1.2-4.9) X10*3/uL Williamson # (Auto) 0.3 (0.1-1.2) X10*3/uL Eos # (Auto) 0.0 (0.0-0.4) X10*3/uL Baso # (Auto) 0.0 (0.0-0.2) X10*3/uL Abs Immat Gran (auto) 0.01 (0.00-0.03) X10*3/uL Absolute Neuts (auto) 4.2 (2.0-8.3) x10*3/uL Absolute Nucleated RBC 0.000 (0.0-0.012) X10*3/uL Nucleated RBC % (auto) 0.0 (0.0-0.2) /100WBC Sodium 137 (135-145) mmol/L Potassium 3.3 (3.3-5.1) mmol/L Chloride 101 (96-108) mmol/L Carbon Dioxide 23 (22-29) mmol/L Anion Gap 16 (12-20) BUN 10 (9-16) mg/dL Creatinine 0.64 (0.5-1.4) mg/dL Estim Creat Clear Calc 54.5 Estimated GFR > 60 Random Glucose 88 (60-115) mg/dL Calcium 9.0 (8.4-10.2) mg/dL Independent Interpretation I performed an independent interpretation of an: CT Scan Interpretation: Review of CT A/P results from yesterday notable for diverticulosis without evidence of diverticulitis with thickening of sigmoid colon. Radiology Impression Discussion of test interpretation with radiology: I have reviewed the radiologist's reading. Radiologist Impression: CT abdomen and pelvis with contrast Comparison: 02/11/2025 Findings: No significant change in moderate sized hiatal hernia. Mild left basilar bandlike atelectasis/scarring. Too small to characterize hepatic hypodensities. Gallbladder not seen and be surgically absent. Kidneys, spleen, pancreas, and adrenals are unremarkable. Sigmoid colonic diverticulosis and up to 10 mm circumferential thickening of the sigmoid colonic wall are redemonstrated. No evidence of neighboring fat stranding. Somewhat prominent vasa recta at level of the sigmoid colon and rectum as before. Mild apparent circumferential thickening of the wall of the nondistended transverse and descending colon was also seen on the prior exam and may be artifactual/due to underdistention. No neighboring fat stranding. Subserosal calcified uterine fibroid. The bones are intact. Spinal degenerative changes. Atherosclerotic calcifications. IMPRESSION: No definite evidence of diverticulitis. Redemonstration of diverticulosis and circumferential wall thickening at level of the sigmoid colon. Although the wall thickening may be secondary to the diverticulosis, if not already performed, further evaluation with CT colonoscopy, colonoscopy, or stool blood testing may be of value. No significant change in moderate sized hiatal hernia. External Record Review External record reviewed: Inpatient record, Office record and Outpatient record Prescription Management I considered prescription management with: Other Discharge Plan Discharge Clinical Impression: Abdominal pain Patient Disposition: Home, Self-Care Instructions: Abdominal Pain (ED) Additional Instructions: You have been evaluated in the emergency department today for abdominal pain. Your evaluation did not show evidence of medical conditions requiring emergent intervention at this time. Your repeat labs are reassuring. You are being prescribed ondansetron which you can take every 8 hours as needed for nausea. You have been prescribed Imodium which you can take as prescribed for diarrhea. Please schedule an appointment with your chart picker for further evaluation and management of your symptoms. Return to the emergency department if you experience worsening or uncontrolled pain, fevers 100.4? F or greater, recurrent vomiting, inability to tolerate food or fluids by mouth, bloody stools or vomit, black or tarry stools, or any other concerning symptoms. Prescriptions: New ondansetron 4 mg tablet,disintegrating 4 mg PO Q8H PRN (Reason: nausea and vomiting) Qty: 10 0RF loperamide 2 mg capsule 2 mg PO Q6H PRN (Reason: loose stool) Qty: 10 0RF No Action atorvastatin 40 mg Tablet 40 mg PO BEDTIME Qty: 30 0RF lisinopril 20 mg tablet 20 mg PO DAILY Slow-Mag 71.5 mg tablet,delayed release (DR/EC) 1 tab PO DAILY amlodipine 5 mg Tablet 5 mg PO DAILY Qty: 30 0RF Protocol: Hold for SBP< HOLD for SBP < : 90 alendronate 70 mg tablet 70 mg PO TH@0900 Rx Instructions: Take 1 tab once weekly, 1st thing in the morning, on an empty stomach, with a large glass of water (at least 6 oz) and stay upright for 30 minutes levofloxacin 750 mg Tablet 750 mg PO BEDTIME Qty: 3 0RF carvedilol 25 mg tablet 12.5 mg PO BID Qty: 90 0RF amoxicillin-pot clavulanate 875-125 mg tablet 1 tab PO TID 7 Days Qty: 21 0RF fluticasone propionate 50 mcg/actuation spray,suspension 1 spray intranasal DAILY PRN (Reason: Allergic Symptoms) albuterol sulfate [Ventolin HFA] 90 mcg/actuation HFA aerosol inhaler 2 puff inhalation Q6H PRN (Reason: Respiratory Distress) acetaminophen [Tylenol Extra Strength] 500 mg tablet 1,000 mg PO Q6H PRN (Reason: Pain) mirtazapine 7.5 mg tablet 3.75 mg PO BEDTIME Qty: 30 1RF buspirone 10 mg tablet 10 mg PO BID Qty: 180 1RF lorazepam 0.5 mg tablet 0.5 mg PO BID PRN (Reason: anxiety) Qty: 60 2RF Rx Instructions: can cause balance problems paroxetine HCl 40 mg tablet 40 mg PO BEDTIME 90 Days Qty: 90 1RF mesalamine 4 gram/60 mL enema 4 g [place] BEDTIME 14 Days Qty: 840 0RF polyethylene glycol 3350 [Miralax] 17 gram/dose powder 238 g PO ONCE Qty: 238 0RF Rx Instructions: mix in 64 oz of gatorade for colonoscopy prep Referrals: Nevin Alcala MD [Physician] - 3 days (ongoing LLQ abd pain and diarrhea) Print Language: Italian
[2025-03-28 08:47] LABS: MANUAL DIFF FLAG NO
[2025-03-28 08:48] LABS: Basophils Percent Auto 0.4 % (0-2); Eosinophils Percent Auto 0.4 % (0-4); Hematocrit 33.6 % (37.0-47.0); Hemoglobin 10.7 g/dl (12.0-16.0); Imm Gran Abs Auto 0.01 X10*3/uL (0.00-0.03); Imm Gran Pct Auto 0.2 % (0.0-0.4); Lymphocytes Absolute Auto 0.9 X10*3/uL (1.2-4.9); Lymphocytes Percent Auto 16.2 % (20-40); Mean Corpuscular HGB Conc 31.8 g/dl (31.0-35.0); Mean Corpuscular Volume 75.3 fL (80.0-98.0); Mean Platelet Volume 8.9 fL (9.4-12.3); Monocytes Absolute Auto 0.3 X10*3/uL (0.1-1.2); Monocytes Percent Auto 6.3 % (2-11); Neutrophils Absolute Auto 4.2 x10*3/uL (2.0-8.3); Neutrophils Percent Auto 76.5 % (45-73); Platelet Count 291 X10*3/uL (160-400); Red Blood Count 4.46 X10*6/uL (4.20-5.50); Red Cell Distribution Width 15.1 % (11.0-16.0); White Blood Count 5.4 X10*3/uL (4.8-10.8)
[2025-03-28 09:06] LABS: Anion Gap 16 (12-20); Blood Urea Nitrogen 10 mg/dL (9-16); Carbon Dioxide 23 mmol/L (22-29); Chloride 101 mmol/L (96-108); Creatinine Clr Calc Pharmacy 54.5; Estimated Glomerular Filt Rate > 60; Glucose Random 88 mg/dL (60-115); Potassium 3.3 mmol/L (3.3-5.1); Sodium 137 mmol/L (135-145)
[2025-03-28 09:27] VITALS: BP 162/79
[2025-03-28] MEDS: ondansetron HCL 4 MG/2 ML VIAL IVPUSH (09:27)
[2025-03-28] MEDS: 0.9 % Sodium Chloride 1,000 ML 999 ML IV (09:27)
[2025-03-28] MEDS: amLODIPine Besylate 5 MG TABLET PO (09:27)
[2025-03-28 09:29] VITALS: BP 162/79; PULSE 81; RESP 16; O2SAT 99
[2025-03-28 10:28] VITALS: BP 172/75; PULSE 82; RESP 18; TEMP 36.8; O2SAT 97
[2025-03-28 11:43] VITALS: BP 136/86; PULSE 90; RESP 18; O2SAT 98
[2025-03-28 12:03] VITALS: BP 136/86; PULSE 90; RESP 18; TEMP 36.8; O2SAT 98
== END 2025-03-28 12:04 | disposition home or self-care (01) ==
PROVIDERS: Registered Nurse Emergency; Emergency Provider Emergency Medicine; PCP Internal Medicine
DX: R10.2 Pelvic and perineal pain (principal); R11.2 Nausea with vomiting, unspecified; R10.32 Left lower quadrant pain; R19.7 Diarrhea, unspecified; Z79.899 Other long term (current) drug therapy; Z87.891 Personal history of nicotine dependence
CPT/HCPCS: 36415; 80048; 85025; 96361; 96374; 99284; J2405

== ENCOUNTER 2025-03-29 13:17 | Emergency (ER) | payer MEDICARE, SELFPAY ==
--- NOTE | ~2025-03-29 | CT_ITS ---
EXAMINATION: CT ANGIOGRAM HEAD AND NECK CLINICAL INFORMATION: Stroke protocol . COMPARISON: No prior CT angiography. TECHNIQUE: CTA head and neck performed via test bolus sequences and head and neck intravenous bolus administration 70 mL of Omnipaque 350. Helical imaging was performed in the axial plane from the aortic arch to the skull vertex. The data was processed at the chemical engineering technologist's workstation for generation of MIP sequences. Angled MIPs and volume rendered reformatted images were also generated at an offline 3D workstation. Stenoses are assessed in accordance with NASCET criteria unless otherwise indicated. This CT examination was performed using dose optimization techniques as appropriate, variously including the following: *Automated exposure control *Adjustment of mA and/or kV according to patient size (this includes techniques or standardized protocols for targeted exams where dose is matched to indication/reason for exam; i.e. extremities or head) *Use of iterative reconstruction technique FINDINGS: NECK CTA: -AORTIC ARCH: Normal in caliber. Mild atheromatous calcification. Three-vessel branching pattern. -GREAT VESSEL ORIGINS: Widely patent. No stenosis. -RIGHT COMMON CAROTID ARTERY: Proximally tortuous. Normal in caliber to the level of the bifurcation. -CERVICAL RIGHT INTERNAL CAROTID ARTERY: Mild calcific atherosclerotic disease of the carotid bulb and proximal internal carotid artery without flow-limiting stenosis. -LEFT COMMON CAROTID ARTERY: Normal in course and caliber to the level of the bifurcation. -CERVICAL LEFT INTERNAL CAROTID ARTERY: Mild calcific atherosclerotic disease of the carotid bulb and proximal internal carotid artery without flow-limiting stenosis. -CERVICAL RIGHT VERTEBRAL ARTERY: Nondominant. Patent origin. Normal in course and caliber into the skull base. -CERVICAL LEFT VERTEBRAL ARTERY: Dominant. Patent origin. Normal in course and caliber into the skull base. OTHER, SOFT TISSUES: -No lymphadenopathy or mass. No abnormal fluid collection or soft tissue swelling. -Mild Global enlargement of the thyroid without dominant nodule. -Imaged superior mediastinal structures normal. -Imaged lung apices clear. There is moderate centrilobular emphysema. -The superior esophagus appears patulous. CTA OF THE BRAIN: -INTRACRANIAL INTERNAL CAROTID ARTERIES: Calcific atherosclerotic disease of the intracranial internal carotid arteries without occlusion or flow-limiting stenosis. -RIGHT ANTERIOR CEREBRAL ARTERY: Normal A1 segment.. Normal arborization of the distal segments. -LEFT ANTERIOR CEREBRAL ARTERY: Normal A1 segment.. Normal arborization of the distal segments. -ANTERIOR COMMUNICATING ARTERY: Normal. -RIGHT MIDDLE CEREBRAL ARTERY: Normal M1 segment of the MCA without focal stenosis or occlusion. Normal arborization of the distal segments. -LEFT MIDDLE CEREBRAL ARTERY: Normal M1 segment of the MCA without focal stenosis or occlusion. Normal arborization of the distal segments. -RIGHT VERTEBRAL ARTERY V4: Normal in course and caliber. Normal PICA branch. -LEFT VERTEBRAL ARTERY V4: Normal in course and caliber. Normal PICA branch. -BASILAR ARTERY: Normal without focal stenosis or occlusion. Normal appearance of the proximal superior cerebellar arteries. Normal basilar tip. -RIGHT POSTERIOR CEREBRAL ARTERY: Normal P1 segment. Normal opacification of the distal ICE PLATFORM SUPERVISOR segments. -LEFT POSTERIOR CEREBRAL ARTERY: Normal P1 segment. Normal opacification of the distal ICE PLATFORM SUPERVISOR segments. -POSTERIOR COMMUNICATING ARTERIES: Diminutive bilaterally. Normal opacification of the superior sagittal, straight, transverse, and sigmoid sinuses. No venous thrombosis. No space-occupying hemorrhage or definite evolving infarct. CT/CT angio head neck STROKE IMPRESSION: CTA NECK: 1. No evidence of significant vascular stenosis, occlusion, dissection, or aneurysm of the major cervical arterial vasculature. 2. Emphysematous changes in the lung apices. 3. The superior esophagus is somewhat patulous. 4. Mild Global enlargement of the thyroid without dominant nodule. CTA HEAD: 1. No evidence of significant vascular stenosis, occlusion, dissection, or aneurysm of the major intracranial arterial vasculature. 2. No space occupying hemorrhage or definitive ischemic evolving infarct. 3. Patent cortical and dural venous sinuses. Electronically signed by: Stefano Colvin MD 03/29/2025 02:06 PM EDT
--- NOTE | ~2025-03-29 | MR_ITS ---
CLINICAL HISTORY: stroke MRI Brain Without Contrast: Comparison: None Findings: Cortical sulci and cisterns are prominent. No restricted diffusion or signs of acute infarction. There are few scattered focal areas of periventricular white matter degeneration due to microangiopathy. Bilateral remote subcentimeter small lacunar infarcts are present. Mass effect: No shift in midline structures. Intracranial bleeding: No intraparenchymal bleeding or abnormal extra axial blood fluid collections. Pituitary: Normal in size. Visualized sinuses: Clear. Orbital structures: Unremarkable. Calvarium: There is no abnormal meningeal thickening or nodularity. Impression: No signs of acute infarction. Chronic involutional volume loss. Bilateral remote small basal ganglia lacunar infarcts. This document has been electronically signed by: Maverick Thomas MD on 03/29/2025 18:01:39
--- NOTE | ~2025-03-29 | XR_ITS ---
EXAMINATION: XR CHEST CLINICAL INFORMATION: Stroke Protocol COMPARISON: 09/10/2024. TECHNIQUE: AP view of the chest was obtained. FINDINGS: The cardiac, hilar, and mediastinal contours are normal. There is a retrocardiac hiatus hernia. The lungs are somewhat hyperaerated, however clear bilaterally. No pneumothorax or effusion. No focal osseous or soft tissue abnormality. There are degenerative changes in both shoulder joints and throughout the spine. There are surgical clips in the epigastric region. XR/XR chest 1V IMPRESSION: 1. COPD. 2. No active pulmonary disease. 3. Retrocardiac hiatus hernia suspected. Electronically signed by: Stefano Colvin MD 03/29/2025 02:18 PM EDT
--- NOTE | ~2025-03-29 | CT_ITS ---
EXAMINATION: CT HEAD WITHOUT CONTRAST (STROKE PROTOCOL) CLINICAL INFORMATION: Stroke protocol. COMPARISON: None available. TECHNIQUE: Contiguous axial imaging was performed from the skull base to vertex without intravenous administration of contrast. This CT examination was performed using dose optimization techniques as appropriate, variously including the following: *Automated exposure control *Adjustment of mA and/or kV according to patient size (this includes techniques or standardized protocols for targeted exams where dose is matched to indication/reason for exam; i.e. extremities or head) *Use of iterative reconstruction technique FINDINGS: There is no evidence of intracranial hemorrhage or extra-axial fluid collection. There is no mass effect, or edema. No CT evidence of acute territorial infarct. Ventricles, sulci, and cisterns are normal in size and configuration for patient age. No hydrocephalus. No midline shift. Negative hyperdense MCA sign. Negative insular ribbon sign. Patchy periventricular and deep white matter hypoattenuation is consistent with mild to moderate small vessel ischemic changes. Normal pituitary. Old lacunar type infarcts present in the bilateral thalami and bilateral gangliocapsular regions. Mild atheromatous calcification of the bilateral carotid siphons and V4 segments vertebral arteries bilaterally. Globes and orbital contents image normally. No extracranial soft tissue abnormalities. The paranasal sinuses, mastoid air cells, and tympanic cavities are normally aerated. No suspicious bony abnormalities. There are no acute fractures evident. CT/CT head for STROKE IMPRESSION: No acute intracranial abnormality. This critical result was discussed with Aguila Joaquin of the [place] emergency department at 1:46 PM, 03/29/2025. It was ascertained that the content and urgency of the report was understood at the time of direct communication. Electronically signed by: Stefano Colvin MD 03/29/2025 01:49 PM EDT
--- NOTE | 2025-03-29 13:25 | ECG_ITS ---
Test Reason : STROKE Blood Pressure : */* mmHG Vent. Rate : 80 BPM Atrial Rate : 80 BPM P-R Int : 158 ms QRS Dur : 74 ms QT Int : 396 ms P-R-T Axes : 46 -4 21 degrees QTcB Int : 456 ms Normal sinus rhythm Minimal voltage criteria for LVH, may be normal variant ( R in aVL ) Cannot rule out Anterior infarct (cited on or before 04-Jun-2024) Abnormal ECG When compared with ECG of 27-Mar-2025 08:28, Questionable change in QRS axis T wave inversion no longer evident in Anterior leads Referred By: Aguila Joaquin Electronically Signed By: SHANTELLE GU MD
[2025-03-29] MEDS: iohexoL 350 MG/ML 100 ML INFUS..BTL IV (13:42)
--- NOTE | 2025-03-29 13:45 | ED.GENADULT ---
HPI - General Adult General Chief complaint: Stroke Stated complaint: Stroke alert, LKWT 0930, resolved r sides weakness Time Seen by Provider: 03/29/25 13:25 Source: patient Mode of arrival: EMS Limitations: no limitations History of Present Illness HPI narrative: This is a 74-year-old woman with a past medical history of hypertension, hyperlipidemia, asthma, GERD, anxiety, lupus, CVA, vertigo who presents by EMS for evaluation of speech changes and right-sided weakness. EMS states that patient was last seen normal at 930 a.m. this morning. EMS states that patient has a history of stroke. EMS states that patient has right facial droop, which was resolved, and was found to have RUE>RLE weakness. EMS states word finding difficulty. Patient states no headache or visual disturbance. She states no chest pain or dyspnea. She state no abdominal pain. She states no nausea. She states no back pain. She states no symptoms. She states no trauma. Related Data Home Medications ?Medication ?Instructions ?Recorded ?Confirmed fluticasone propionate 50 1 spray intranasal DAILY PRN 08/08/20 12/05/24 mcg/actuation nasal Allergic Symptoms spray,suspension albuterol sulfate 90 mcg/actuation 2 puff inhalation Q6H PRN 10/22/21 12/05/24 aerosol inhaler (Ventolin HFA) Respiratory Distress acetaminophen 500 mg tablet 1,000 mg PO Q6H PRN Pain 07/24/22 12/05/24 (Tylenol Extra Strength) lisinopril 20 mg tablet 20 mg PO DAILY 10/24/22 12/05/24 magnesium chloride 71.5 mg 1 tab PO DAILY 10/24/22 12/05/24 (magnesium chloride) tablet,delayed release (Slow-Mag) alendronate 70 mg tablet 70 mg PO TH@0900 06/26/24 12/05/24 Previous Rx's ?Medication ?Instructions ?Recorded atorvastatin 40 mg tablet 40 mg PO BEDTIME #30 tabs 05/27/21 amlodipine 5 mg tablet 5 mg PO DAILY #30 tabs 10/26/22 carvedilol 25 mg tablet 12.5 mg (1/2 x 25 mg) PO BID #90 12/08/24 tabs levofloxacin 750 mg tablet 750 mg PO BEDTIME #3 tabs 12/08/24 amoxicillin 875 mg-potassium 1 tab PO TID 7 days #21 tabs 02/11/25 clavulanate 125 mg tablet buspirone 10 mg tablet 10 mg PO BID #180 tabs 03/03/25 lorazepam 0.5 mg tablet 0.5 mg PO BID PRN anxiety #60 tabs 03/03/25 mirtazapine 7.5 mg tablet 3.75 mg (1/2 x 7.5 mg) PO BEDTIME 03/03/25 #30 tabs paroxetine HCl 40 mg tablet 40 mg PO BEDTIME 90 days #90 tabs 03/03/25 mesalamine 4 gram/60 mL enema 4 g (60 mL) NJ BEDTIME 14 days 03/08/25 #840 mL polyethylene glycol 3350 17 238 g PO ONCE #238 grams 03/08/25 gram/dose oral powder (Miralax) loperamide 2 mg capsule 2 mg PO Q6H PRN loose stool #10 03/28/25 caps ondansetron 4 mg disintegrating 4 mg PO Q8H PRN nausea and 03/28/25 tablet vomiting #10 tabs Allergies Allergy/AdvReac Type Severity Reaction Status Date / Time Codeine Sulfate Allergy Severe Anaphylaxis Verified 03/29/25 13:51 Antihistamine Allergy Intermediate Shakiness Verified 03/29/25 13:51 egg Allergy Intermediate Heartburn Verified 03/29/25 13:51 Sulfa (Sulfonamide Allergy Intermediate RASH Verified 03/29/25 13:51 Antibiotics) [SULFA (SULFONAMIDE ANTIBIOTICS)] diphenhydramine Allergy sweats, Verified 03/29/25 13:51 [From Benadryl] palpitation cefuroxime AdvReac delerium Verified 03/29/25 13:51 ,paranoia Review of Systems Review of Systems: ROS as per HPI [facility] Past Medical History Medical History Major depression with psychotic features Abnormal EKG Pneumonia Abdominal pain Osteoporosis with pathological fracture Fracture of right ulnar styloid Fracture of right distal radius Dysuria Acute hyponatremia Drug-induced diarrhea 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 Headache Sinusitis Asthma Generalized anxiety disorder Mood disorder, drug-induced Diaphragmatic hernia Panic disorder [episodic paroxysmal anxiety] Dysthymia Hypertension Diverticulitis CVA (cerebral vascular accident) Vertigo Tubular adenoma of colon Positive colorectal cancer screening using Cologuard test Irritable bowel syndrome with both constipation and diarrhea GERD (gastroesophageal reflux disease) Depression with anxiety HTN (hypertension), benign Lupus Surgical History S/P repair of paraesophageal hernia H/O wrist surgery Hx of colonoscopy History of cholecystectomy Family History Family History Father CAD (coronary artery disease) Maternal Grandmother HTN (hypertension), benign Father No problems noted. Mother Hypertension Asthma COPD (chronic obstructive pulmonary disease) Social History Social History Household Members: Family Household Members Other:: niece lives upstairs Housing: House Are you a primary assurance services manager health care to a significant other at home: No Do you presently have visiting nurse or other home services: No Alcohol intake: former Patient Tobacco Use Status: Former Tobacco user Tobacco use type: Cigarette Years Smoked: quit greater than 10 years ago Smoked in Last 30 Days: No Second Hand Smoke Exposure: No Use of substances other than those prescribed or required for medical reasons: No Advance Directives: Yes Advance Directives on File: Yes Advance Directives Date on File: 04/07/23 Do you have a plan to hurt others: No Plan service: No Current occupational status: retired 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, 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 Physical Exam ED Vital Signs: Vital Signs - 24 hr 03/29/25 13:47 03/29/25 13:47 03/29/25 14:32 Temperature 98.8 F 98.8 F Pulse Rate 83 83 82 Respiratory Rate 16 16 14 Blood Pressure 165/72 H 165/72 H 167/72 H Pulse Oximetry 98 97 99 Oxygen Delivery Method Room Air Room Air Room Air BMI result Body Mass Index 24.5 Gen: NAD, AOx3 HEENT: NCAT, EOMI, normal conjunctiva CV: RRR Pulm: CTAB, no increased work of breathing GI: Soft, NTND, no rebound, guarding or rigidity Neuro: NIHSS 1 (mild-moderate aphasia: some obvious changes, without significant limitation) Medications Administered Discontinued Medications Generic Name Dose Route Start Last Admin Trade Name Freq PRN Reason Stop Dose Admin Aspirin 162 mg 03/29/25 14:19 03/29/25 15:42 Aspirin 81 Mg Tab.Chew PO 03/29/25 14:20 162 mg ONCE ONE Administration Diazepam 2.5 mg 03/29/25 15:38 03/29/25 16:54 Diazepam 10 Mg/2 Ml Cartridge IVPUSH 03/29/25 15:39 2.5 mg STAT STA Administration Iohexol 100 ml 03/29/25 13:41 03/29/25 13:42 Iohexol 350 Mg/Ml 100 Ml Infus..Btl IV 03/29/25 13:42 70 ml ONCE ONE Administration Ondansetron HCl 4 mg 03/29/25 17:01 03/29/25 17:23 Ondansetron Hcl 4 Mg/2 Ml Vial IVPUSH 03/29/25 17:02 4 mg ONCE ONE Administration Potassium Chloride 20 meq 03/29/25 16:00 03/29/25 18:04 Potassium Chloride Er 20 Meq Tab.Er.Prt PO 03/29/25 16:01 20 meq ONCE ONE Administration Medical Decision Making Medical Decision Making MDM Narrative: Differential diagnosis includes, but is not limited to intracranial hemorrhage, large vessel occlusion, acute ischemic stroke. Patient is afebrile and hemodynamically stable on room air. Exam is notable for NIHSS 1. A CTA without large vessel occlusion and thus the patient is not a thrombectomy candidate. Patient is not a candidate for thrombolysis given that she is outside the window and has a non disabling neurological deficit as per physical exam above. I reviewed the patient's EKG, blood work and CT imaging as below. I discussed with the consultants radiologist and neurologist as below. Care is transitioned to oncoming physician, , with disposition pending MRI evaluation and discussion with Neurology. 1900 >> patient has acute onset of right-sided tingling sensation and expressive aphasia CT head CTA head and neck and MRI negative for acute stroke at this time patient does not have any neurosymptoms, case discussed Dr. Hook neurologist likely patient has been stem migraine as the cause of the symptoms no change in medications advised to continue aspirin for now follow up as outpatient Admission/Observation Consideration of admission/observation: Escalation of care including admission/observation considered Consult Healthcare Provider Management of the patient was discussed with: Space Studies Faculty Member I discussed with the radiologist, Dr. Stefano Colvin, who states CT noncontrast of the head is negative. I discussed with business risk consultant Neurologist, Dr. Salvador, who recommends full dose aspirin and MRI brain w/ and w/o. Lab Data MDM Lab Attestation statement: I reviewed the patient's lab results. Labs demonstrates stable chronic anemia with hemoglobin 9.2 (previous 10.7), metabolic panel notable for mild hypokalemia with a potassium 3.2 (which is repleted), otherwise by metabolic panel reassuring, 03/29/25 14:50 03/29/25 14:50 Labs: Lab Results 03/29/25 03/29/25 03/29/25 Range/Units 13:30 13:44 14:50 WBC 5.1 (4.8-10.8) X10*3/uL RBC 3.84 L (4.20-5.50) X10*6/uL Hgb 9.2 L (12.0-16.0) g/dl Hct 29.2 L (37.0-47.0) % MCV 76.0 L (80.0-98.0) fL MCH 24.0 L (27.0-33.0) pg MCHC 31.5 (31.0-35.0) g/dl RDW 15.3 (11.0-16.0) % Plt Count 255 (160-400) X10*3/uL MPV 8.9 L (9.4-12.3) fL Immature Gran % (Auto) 0.2 (0.0-0.4) % Neut % (Auto) 70.4 (45-73) % Lymph % (Auto) 18.8 L (20-40) % Sharp % (Auto) 8.6 (2-11) % Eos % (Auto) 1.2 (0-4) % Baso % (Auto) 0.8 (0-2) % Lymph # (Auto) 1.0 L (1.2-4.9) X10*3/uL Sharp # (Auto) 0.4 (0.1-1.2) X10*3/uL Eos # (Auto) 0.1 (0.0-0.4) X10*3/uL Baso # (Auto) 0.0 (0.0-0.2) X10*3/uL Abs Immat Gran (auto) 0.01 (0.00-0.03) X10*3/uL Absolute Neuts (auto) 3.6 (2.0-8.3) x10*3/uL Absolute Nucleated RBC 0.000 (0.0-0.012) X10*3/uL Nucleated RBC % (auto) 0.0 (0.0-0.2) /100WBC PT 10.9 (10.9-12.4) SEC Whole Blood PT 12.0 (11.1-13.5) sec INR 1.0 (0.9-1.1) Whole Blood INR 1.0 (0.9-1.1) APTT 25.8 L (26.0-36.8) SEC Sodium 133 L (135-145) mmol/L Potassium 3.2 L (3.3-5.1) mmol/L Chloride 100 (96-108) mmol/L Carbon Dioxide 23 (22-29) mmol/L Anion Gap 13 (12-20) BUN 10 (9-16) mg/dL Creatinine 0.68 (0.5-1.4) mg/dL Estim Creat Clear Calc 56.5 Estimated GFR > 60 POC Glucose 103 (60-115) mg/dL Random Glucose 98 (60-115) mg/dL Calcium 8.2 L D (8.4-10.2) mg/dL Troponin I High Sens 8.9 (<3.5-17.0) ng/L Triglycerides 86 (<150) mg/dL Cholesterol 143 (<200) mg/dL LDL Cholesterol, Calc 55 (<100) mg/dL HDL Cholesterol 71 (>40) mg/dL Independent Interpretation I performed an independent interpretation of an: EKG, Plain X-Ray and CT Scan Interpretation: CT imaging of the head demonstrates no acute intracranial hemorrhage. EKG demonstrates sinus rhythm at 80 beats per minute, NJ 158, QRS 74, QTC 456, no STEMI. Chest x-ray demonstrates no pleural effusion, focal consolidation or pneumothorax Radiology Impression Discussion of test interpretation with radiology: I discussed test interpretation with the radiologist and I have reviewed the radiologist's reading. Radiologist Impression: CT/CT head for STROKE IMPRESSION: No acute intracranial abnormality. This critical result was discussed with Aguila Joaquin of the [place] emergency department at 1:46 PM, 03/29/2025. It was ascertained that the content and urgency of the report was understood at the time of direct communication. Electronically signed by: Stefano Colvin MD 03/29/2025 01:49 PM EDT RP Dictated By: Stefano Colvin MD Signed By: <Electronically signed by Stefano Colvin MD in OV> 03/29/[address]/CT angio head neck STROKE IMPRESSION: CTA NECK: 1. No evidence of significant vascular stenosis, occlusion, dissection, or aneurysm of the major cervical arterial vasculature. 2. Emphysematous changes in the lung apices. 3. The superior esophagus is somewhat patulous. 4. Mild Global enlargement of the thyroid without dominant nodule. CTA HEAD: 1. No evidence of significant vascular stenosis, occlusion, dissection, or aneurysm of the major intracranial arterial vasculature. 2. No space occupying hemorrhage or definitive ischemic evolving infarct. 3. Patent cortical and dural venous sinuses. Electronically signed by: Stefano Colvin MD 03/29/2025 02:06 PM EDT RP Dictated By: Stefano Colvin MD Signed By: <Electronically signed by Stefano Colvin MD in OV> 03/29/25 1406 XR/XR chest 1V IMPRESSION: 1. COPD. 2. No active pulmonary disease. 3. Retrocardiac hiatus hernia suspected. Electronically signed by: Stefano Colvin MD 03/29/2025 02:18 PM EDT RP Dictated By: Stefano Colvin MD Signed By: <Electronically signed by Stefano Colvin MD in OV> 03/29/25 1418 Independent Historian Clinical information obtained from an independent historian. History obtained from or confirmed by: Other Famil contributes to history stating that patient took 2 baby aspirin prior to arrival. Thus, this is completed with 2 additional baby aspirin to complete full dose as per Neurology recommendations Discharge Plan Discharge Clinical Impression: Acute right-sided weakness, Facial droop, Word finding difficulty Prescriptions: No Action atorvastatin 40 mg Tablet 40 mg PO BEDTIME Qty: 30 0RF lisinopril 20 mg tablet 20 mg PO DAILY Slow-Mag 71.5 mg tablet,delayed release (DR/EC) 1 tab PO DAILY amlodipine 5 mg Tablet 5 mg PO DAILY Qty: 30 0RF Protocol: Hold for SBP< HOLD for SBP < : 90 alendronate 70 mg tablet 70 mg PO TH@0900 Rx Instructions: Take 1 tab once weekly, 1st thing in the morning, on an empty stomach, with a large glass of water (at least 6 oz) and stay upright for 30 minutes levofloxacin 750 mg Tablet 750 mg PO BEDTIME Qty: 3 0RF carvedilol 25 mg tablet 12.5 mg PO BID Qty: 90 0RF amoxicillin-pot clavulanate 875-125 mg tablet 1 tab PO TID 7 Days Qty: 21 0RF ondansetron 4 mg tablet,disintegrating 4 mg PO Q8H PRN (Reason: nausea and vomiting) Qty: 10 0RF loperamide 2 mg capsule 2 mg PO Q6H PRN (Reason: loose stool) Qty: 10 0RF fluticasone propionate 50 mcg/actuation spray,suspension 1 spray intranasal DAILY PRN (Reason: Allergic Symptoms) albuterol sulfate [Ventolin HFA] 90 mcg/actuation HFA aerosol inhaler 2 puff inhalation Q6H PRN (Reason: Respiratory Distress) acetaminophen [Tylenol Extra Strength] 500 mg tablet 1,000 mg PO Q6H PRN (Reason: Pain) mirtazapine 7.5 mg tablet 3.75 mg PO BEDTIME Qty: 30 1RF buspirone 10 mg tablet 10 mg PO BID Qty: 180 1RF lorazepam 0.5 mg tablet 0.5 mg PO BID PRN (Reason: anxiety) Qty: 60 2RF Rx Instructions: can cause balance problems paroxetine HCl 40 mg tablet 40 mg PO BEDTIME 90 Days Qty: 90 1RF mesalamine 4 gram/60 mL enema 4 g NJ BEDTIME 14 Days Qty: 840 0RF polyethylene glycol 3350 [Miralax] 17 gram/dose powder 238 g PO ONCE Qty: 238 0RF Rx Instructions: mix in 64 oz of gatorade for colonoscopy prep Print Language: Macedonian
[2025-03-29 13:47] VITALS: BP 152/81; BP 165/72; PULSE 104; PULSE 83; RESP 16; TEMP 37.1; O2SAT 97; O2SAT 98; BMI 24.5
[2025-03-29 13:47] LABS: Glucose, Whole Blood 103 mg/dL (60-115)
[2025-03-29 14:32] VITALS: BP 167/72; PULSE 82; RESP 14; O2SAT 99
[2025-03-29 15:00] LABS: MANUAL DIFF FLAG NO
[2025-03-29 15:01] LABS: Basophils Percent Auto 0.8 % (0-2); Eosinophils Absolute Auto 0.1 X10*3/uL (0.0-0.4); Eosinophils Percent Auto 1.2 % (0-4); Hematocrit 29.2 % (37.0-47.0); Hemoglobin 9.2 g/dl (12.0-16.0); Imm Gran Abs Auto 0.01 X10*3/uL (0.00-0.03); Imm Gran Pct Auto 0.2 % (0.0-0.4); Lymphocytes Percent Auto 18.8 % (20-40); Mean Corpuscular HGB Conc 31.5 g/dl (31.0-35.0); Mean Platelet Volume 8.9 fL (9.4-12.3); Monocytes Absolute Auto 0.4 X10*3/uL (0.1-1.2); Monocytes Percent Auto 8.6 % (2-11); Neutrophils Absolute Auto 3.6 x10*3/uL (2.0-8.3); Neutrophils Percent Auto 70.4 % (45-73); Platelet Count 255 X10*3/uL (160-400); Red Blood Count 3.84 X10*6/uL (4.20-5.50); Red Cell Distribution Width 15.3 % (11.0-16.0); White Blood Count 5.1 X10*3/uL (4.8-10.8)
[2025-03-29 15:36] LABS: Prothrombin Time 10.9 SEC (10.9-12.4)
[2025-03-29 15:39] LABS: Partial Thromboplastin Time 25.8 SEC (26.0-36.8)
[2025-03-29 15:40] LABS: Stroke Lab Use COMPLETE
[2025-03-29] MEDS: Aspirin 81 MG TAB.CHEW 162 MG PO (15:42)
[2025-03-29 15:49] LABS: Anion Gap 13 (12-20); Blood Urea Nitrogen 10 mg/dL (9-16); Calcium 8.2 mg/dL (8.4-10.2); Carbon Dioxide 23 mmol/L (22-29); Chloride 100 mmol/L (96-108); Cholesterol 143 mg/dL (<200); Creatinine Clr Calc Pharmacy 56.5; Estimated Glomerular Filt Rate > 60; Glucose Random 98 mg/dL (60-115); HDL Cholesterol 71 mg/dL (>40); LDL Cholesterol Calculated 55 mg/dL (<100); Potassium 3.2 mmol/L (3.3-5.1); Sodium 133 mmol/L (135-145); Triglycerides 86 mg/dL (<150)
[2025-03-29 16:02] LABS: Troponin-I High Sensitivity 8.9 ng/L (<3.5-17.0)
--- NOTE | 2025-03-29 16:10 | PC.NURSE ---
Pt's speech clear; equal smilr/facial movement; PERRLA; vss; equal ROM/CMS all extremities; pt reports MA/nausea resolved on it's own; MRI screening tool faxed; pt to have MRI at approx 1715; will cont to monitor/tx per orders
[2025-03-29] MEDS: diazePAM 10 MG/2 ML CARTRIDGE 2.5 MG IVPUSH (16:54)
--- NOTE | 2025-03-29 17:01 | PC.NURSE ---
Pt to MRI
[2025-03-29] MEDS: ondansetron HCL 4 MG/2 ML VIAL IVPUSH ×2 (17:23→22:23)
[2025-03-29] MEDS: Potassium Chloride ER 20 MEQ TAB.ER.PRT PO (18:04)
[2025-03-29 19:52] VITALS: BP 182/92; PULSE 85; RESP 16; TEMP 36.5; O2SAT 97
--- NOTE | 2025-03-29 20:32 | PC.NURSE ---
Addendum entered by Harmony Rankinarnacion 03/29/25 20:57: new orders placed. Medicated as per MAR Original Note: pt bp elevated 170-180s/90s. Also endorsing nausea and MA. pt on hypertensive meds however did not take her medications today.
[2025-03-29 20:55] VITALS: BP 171/87
[2025-03-29] MEDS: Ondansetron ODT 4 MG TAB.RAPDIS TRANSLINGU (20:55)
[2025-03-29] MEDS: amLODIPine Besylate 5 MG TABLET PO (20:55)
[2025-03-29 21:36] VITALS: BP 175/89; PULSE 88; RESP 16; TEMP 36.7; O2SAT 97
--- NOTE | 2025-03-29 21:43 | ECG_ITS ---
Test Reason : CP Blood Pressure : */* mmHG Vent. Rate : 76 BPM Atrial Rate : 76 BPM P-R Int : 154 ms QRS Dur : 76 ms QT Int : 398 ms P-R-T Axes : 57 4 35 degrees QTcB Int : 447 ms Normal sinus rhythm Possible Inferior infarct , age undetermined Abnormal ECG When compared with ECG of 29-Mar-2025 13:47, No significant change was found Referred By: Kb Kerr Electronically Signed By: SHANTELLE GU MD
[2025-03-29] MEDS: Famotidine/PF 20 MG/2 ML VIAL IVPUSH (22:23)
[2025-03-29 22:41] VITALS: BP 156/84; PULSE 80; RESP 18; TEMP 36.8; O2SAT 96
== END 2025-03-29 22:42 | disposition home or self-care (01) ==
PROVIDERS: Internal Medicine; Emergency Provider Emergency Medicine; PCP Internal Medicine
DX: R29.810 Facial weakness (principal); R53.1 Weakness; R41.89 Other symptoms and signs involving cognitive functions and awareness; I10 Essential (primary) hypertension; E78.5 Hyperlipidemia, unspecified; J45.909 Unspecified asthma, uncomplicated; M32.9 Systemic lupus erythematosus, unspecified; Z86.73 Personal history of transient ischemic attack (TIA), and cerebral infarction without residual deficits; Z79.02 Long term (current) use of antithrombotics/antiplatelets; Z79.899 Other long term (current) drug therapy
CPT/HCPCS: 36415; 70450; 70496; 70498; 70551; 71045; 80048; 80061; 82947; 84484; 85025; 85610; 85730; 93005; 96374; 96375; 99285; J1308; J2405; J3360; Q9967

== ENCOUNTER → 2025-03-29 13:25 | Outpatient (BNV) | payer MEDICARE, SELFPAY | PROVIDERS: Emergency Provider Emergency Medicine; Visit Provider Radiology Diagnostic Radiology | DX: J44.9 Chronic obstructive pulmonary disease, unspecified (principal); G31.89 Other specified degenerative diseases of nervous system; I63.81 Other cerebral infarction due to occlusion or stenosis of small artery; I63.9 Cerebral infarction, unspecified; I67.6 Nonpyogenic thrombosis of intracranial venous system | CPT/HCPCS: 70450; 70496; 70498; 70551; 71045 ==

== ENCOUNTER → 2025-03-29 13:25 | Outpatient (BNV) | payer MEDICARE, SELFPAY | PROVIDERS: Emergency Provider Emergency Medicine; PCP Internal Medicine; Visit Provider Internal Medicine Cardiovascular Disease | DX: R94.31 Abnormal electrocardiogram [ECG] [EKG] (principal); I63.9 Cerebral infarction, unspecified; R07.9 Chest pain, unspecified | CPT/HCPCS: 93010 ==

== ENCOUNTER 2025-04-02 10:00 | Emergency (ER) | payer MEDICARE, SELFPAY ==
--- NOTE | ~2025-04-02 | XR_ITS ---
CLINICAL HISTORY: chest pain 2 view chest x-ray. Comparison: CR/SR - XR CHEST 1V - 03/29/25 14:01 EDT Findings: The lungs are adequately expanded. No focal consolidation. No effusion or pneumothorax. Cardiac and mediastinal contours are stable. Moderately large hiatal hernia. No acute osseous abnormality Impression: No acute process. This document has been electronically signed by: Rich Vazquez MD on 04/02/2025 11:19:19
--- NOTE | ~2025-04-02 | CT_ITS ---
CLINICAL HISTORY: abdominal cramping, diarrhea CT abdomen and pelvis with contrast Comparison: CT/SR - CT ABDOMEN PELVIS W IV CON - 03/27/25 10:14 EDT Findings: The heart is not enlarged. Calcific atherosclerosis, including the coronary arteries. Lung bases are clear other than subsegmental compressive atelectasis adjacent to the large hiatal hernia. Multiple hepatic subcentimeter hypodensities which are too small to characterize. The liver is otherwise unremarkable. Cholecystectomy. Abdominal solid organs are otherwise unremarkable. No bowel obstruction. Mural thickening of the ascending colon. Mural thickening of the descending and sigmoid colon. Distal colonic diverticulosis without definite diverticulitis. Normal appendix. Calcified uterine fibroid. Unremarkable urinary bladder. Degenerative change of the spine. Mild bilateral hip osteoarthritis. IMPRESSION: Mural thickening of the ascending colon as well as the descending and sigmoid colon which can be seen with colitis. Distal colonic diverticulosis without evidence of diverticulitis. This document has been electronically signed by: Mike Park DO on 04/02/2025 12:44:25
[2025-04-02 10:02] VITALS: BP 169/85; PULSE 117; RESP 18; TEMP 36.3; O2SAT 98; BMI 22.7
--- NOTE | 2025-04-02 10:05 | ECG_ITS ---
Test Reason : chest pain Blood Pressure : */* mmHG Vent. Rate : 98 BPM Atrial Rate : 98 BPM P-R Int : 138 ms QRS Dur : 70 ms QT Int : 352 ms P-R-T Axes : 46 -12 29 degrees QTcB Int : 449 ms Normal sinus rhythm Minimal voltage criteria for LVH, may be normal variant ( R in aVL ) Inferior infarct (cited on or before 10-Sep-2024) Cannot rule out Anterior infarct , age undetermined Abnormal ECG When compared with ECG of 29-Mar-2025 21:43, Minimal criteria for Anterior infarct are now Present Referred By: Generic ED Physician Electronically Signed By: JERSEY WILKES
--- NOTE | 2025-04-02 10:11 | ED.CHESTPAIN ---
HPI - Chest Pain General Chief Complaint: Chest Pain Stated Complaint: high blood pressure Time Seen by Provider: 04/02/25 10:11 Source: patient and family (Niece) Mode of arrival: ambulatory Limitations: no limitations History of Present Illness ED Provider: MARISELA GIRARD PA-C HPI narrative: 74 year old female with pmhx significant for hypertension, hyperlipidemia, asthma, GERD, IBS, anxiety, lupus, CVA, vertigo presents to the ED today with multiple complaints. She reports chest discomfort that started this morning while she was seated at home. This did not wake her from her sleep. Reports feeling well when she woke up this morning. Pain is localized to mid sternum without radiation. Describes this as more of a discomfort than actual pain. Reports associated nausea without vomiting. States this does not feel like her typical GERD. She has been compliant with home omeprazole. Additionally reports abdominal cramping and shaky x months. Reports symptoms began shortly after hiatal hernia repair on 09/13/2024 at our facility. States they starved me for 3 months after surgery . shaking extends from her abdomen to her entire body. Denies any significant abdominal pain. She does report recent diarrhea. She has been evaluated at our facility multiple times over the past week. CT abdomen/pelvis did not demonstrate diverticulitis however did show wall thickening of the distal colon. She was discharged home on Zofran and Imodium. Reports diarrhea has improved with Imodium. States she will not be able to give us a stool sample today. She has also followed up with GI outpatient. She states GI has attempted to order a colonoscopy for further evaluation however patient states she is not ready for something like this as she will not be able to tolerate colonic prep. She also reports increased anxiety. She was started on 0.5 Ativan twice daily as needed. States I need this every hour . She last took this about 2 hours prior to my evaluation. Related Data Home Medications ?Medication ?Instructions ?Recorded ?Confirmed fluticasone propionate 50 1 spray intranasal DAILY PRN 08/08/20 12/05/24 mcg/actuation nasal Allergic Symptoms spray,suspension albuterol sulfate 90 mcg/actuation 2 puff inhalation Q6H PRN 10/22/21 12/05/24 aerosol inhaler (Ventolin HFA) Respiratory Distress acetaminophen 500 mg tablet 1,000 mg PO Q6H PRN Pain 07/24/22 12/05/24 (Tylenol Extra Strength) lisinopril 20 mg tablet 20 mg PO DAILY 10/24/22 12/05/24 magnesium chloride 71.5 mg 1 tab PO DAILY 10/24/22 12/05/24 (magnesium chloride) tablet,delayed release (Slow-Mag) alendronate 70 mg tablet 70 mg PO TH@0900 06/26/24 12/05/24 Previous Rx's ?Medication ?Instructions ?Recorded atorvastatin 40 mg tablet 40 mg PO BEDTIME #30 tabs 05/27/21 amlodipine 5 mg tablet 5 mg PO DAILY #30 tabs 10/26/22 carvedilol 25 mg tablet 12.5 mg (1/2 x 25 mg) PO BID #90 12/08/24 tabs levofloxacin 750 mg tablet 750 mg PO BEDTIME #3 tabs 12/08/24 amoxicillin 875 mg-potassium 1 tab PO TID 7 days #21 tabs 02/11/25 clavulanate 125 mg tablet buspirone 10 mg tablet 10 mg PO BID #180 tabs 03/03/25 lorazepam 0.5 mg tablet 0.5 mg PO BID PRN anxiety #60 tabs 03/03/25 mirtazapine 7.5 mg tablet 3.75 mg (1/2 x 7.5 mg) PO BEDTIME 03/03/25 #30 tabs paroxetine HCl 40 mg tablet 40 mg PO BEDTIME 90 days #90 tabs 03/03/25 mesalamine 4 gram/60 mL enema 4 g (60 mL) AL BEDTIME 14 days 03/08/25 #840 mL polyethylene glycol 3350 17 238 g PO ONCE #238 grams 03/08/25 gram/dose oral powder (Miralax) loperamide 2 mg capsule 2 mg PO Q6H PRN loose stool #10 03/28/25 caps ondansetron 4 mg disintegrating 4 mg PO Q8H PRN nausea and 03/28/25 tablet vomiting #10 tabs amoxicillin 875 mg-potassium 1 tab PO Q12H 7 days #14 tabs 04/02/25 clavulanate 125 mg tablet Allergies Allergy/AdvReac Type Severity Reaction Status Date / Time Codeine Sulfate Allergy Severe Anaphylaxis Verified 04/02/25 10:05 Antihistamine Allergy Intermediate Shakiness Verified 04/02/25 10:05 egg Allergy Intermediate Heartburn Verified 04/02/25 10:05 Sulfa (Sulfonamide Allergy Intermediate RASH Verified 04/02/25 10:05 Antibiotics) [SULFA (SULFONAMIDE ANTIBIOTICS)] diphenhydramine Allergy sweats, Verified 04/02/25 10:05 [From Benadryl] palpitation cefuroxime AdvReac delerium Verified 04/02/25 10:05 ,paranoia Review of Systems Review of Systems: Yes all other systems are reviewed and are negative [facility] Past Medical History Attestation statement: The following information was validated with the patient. 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 Headache Sinusitis Asthma Generalized anxiety disorder Mood disorder, drug-induced Diaphragmatic hernia Panic disorder [episodic paroxysmal anxiety] Dysthymia Hypertension Diverticulitis CVA (cerebral vascular accident) Vertigo Tubular adenoma of colon Positive colorectal cancer screening using Cologuard test Irritable bowel syndrome with both constipation and diarrhea GERD (gastroesophageal reflux disease) Depression with anxiety HTN (hypertension), benign Lupus Surgical History S/P repair of paraesophageal hernia H/O wrist surgery Hx of colonoscopy History of cholecystectomy Family History Family History Father CAD (coronary artery disease) Maternal Grandmother HTN (hypertension), benign Father No problems noted. Mother Hypertension Asthma COPD (chronic obstructive pulmonary disease) Social History Social History Household Members: Family Household Members Other:: niece lives upstairs Housing: House Are you a primary resident care director to a significant other at home: No Do you presently have visiting nurse or other home services: No Alcohol intake: former Patient Tobacco Use Status: Former Tobacco user Tobacco use type: Cigarette Years Smoked: quit greater than 10 years ago Second Hand Smoke Exposure: No Advance Directives Date on File: 04/07/23 service: No Current occupational status: retired Current occupation: Retired [employer], 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 Physical Exam Vital Signs: Vital Signs: Last Vital Signs Temp 98.5 F 04/02/25 13:41 Pulse 95 04/02/25 15:46 Resp 16 04/02/25 15:46 BP 166/89 H 04/02/25 15:46 Pulse Ox 97 04/02/25 15:46 O2 Del Method Room Air 04/02/25 15:46 BMI result Body Mass Index 22.7 Hypertensive, tachycardic General: anxious appearing, in NAD. Skin: Warm, dry, intact. No rashes or lesions. Head: Normocephalic, atraumatic. EENT: Hearing is intact b/l. Conjunctiva clear. Sclera is anicteric. PERRLA. EOM intact. Moist mucous membranes.? Cardiac: Chest wall symmetric. RRR Lungs: Normal respiratory effort without accessory muscle use. CTA bilaterally. Abdomen: soft, non-tender, non-distended. No rebound tenderness or guarding. Positive BS x4. Ext: Upper and lower extremities atraumatic, without tenderness, deformity, swelling or erythema. no pitting edema. Neuro: AOx3. Normal speech. Ambulating with steady gait. Course Course Course Narrative: 1627 -- CBC without leukocytosis or left shift. Microcytic anemia, H&H stable and improving when compared to priors. Chemistry showing hypokalemia to 3.0, magnesium 1.7. No other acute electrolyte abnormality requiring intervention. No CHARLENE. Random glucose 116. Troponin WNL x2. Negative COVID, flu, RSV. Chest x-ray without infiltrate or consolidation to suggest pneumonia. No effusion. EKG showing normal sinus rhythm, rate of 90 beats per minute, no acute ischemic changes or ST elevations. ct a/p showing mural thickening of the ascending colon, descending and sigmoid colon seen with colitis. There is evidence of diverticulosis without diverticulitis. > patient medicated with IV diazepam and IV fluids. Reports improvement in shaking > potassium and magnesium repleted > given length of symptoms, will treat with Augmentin. Patient has a Imodium and Zofran at home. advised outpatient follow up. Patient has remained stable throughout ED visit today. Discussed worrisome signs and symptoms and when to return to the ED. All questions answered at this time. Patient is agreeable with disposition and stable for discharge. Medications Administered Discontinued Medications Generic Name Dose Route Start Last Admin Trade Name Heladioq PRN Reason Stop Dose Admin Diazepam 2.5 mg 04/02/25 10:47 04/02/25 11:15 Diazepam 10 Mg/2 Ml Cartridge IVPUSH 04/02/25 10:48 2.5 mg STAT STA Administration Sodium Chloride 1,000 mls @ 999 mls/hr 04/02/25 11:00 04/02/25 13:30 Ns IV 04/02/25 12:00 Infused .Q1H1M RAMONA Infusion Potassium Chloride 10 meq in 100 mls @ 100 mls/hr 04/02/25 11:45 04/02/25 16:16 Potassium Chloride/H20 IV 04/02/25 13:44 Infused Q1H RAMONA Infusion Magnesium Sulfate 2 gm in 50 mls @ 150 mls/hr 04/02/25 11:32 04/02/25 14:45 Magnesium Sulfate/H2o IV 04/02/25 11:51 Infused ONCE ONE Infusion Iohexol 100 ml 04/02/25 11:43 04/02/25 11:43 Iohexol 350 Mg/Ml 100 Ml Infus..Btl IV 04/02/25 11:44 85 ml ONCE ONE Administration Potassium Chloride 40 meq 04/02/25 11:32 04/02/25 13:00 Potassium Chloride Packet 20 Meq Packet PO 04/02/25 11:33 40 meq ONCE ONE Administration Medical Decision Making Medical Decision Making [facility] Narrative: 74 year old female with pmhx significant for hypertension, hyperlipidemia, asthma, GERD, IBS, anxiety, lupus, CVA, vertigo presents to the ED today with multiple complaints. Patient initially hypertensive and tachycardic on arrival. Afebrile. Not hypoxic. Anxious appearing on initial evaluation. Abdomen is soft, nondistended, nontender to palpation, no rebound tenderness or guarding. Active bowel sounds x4. Tachycardia, regular rhythm, lungs are CTA bilaterally. No respiratory distress or tripoding. no peripheral edema. Differential diagnosis includes anemia, electrolyte abnormality, dehydration, anxiety, gastritis, GERD, PUD, gastroenteritis, colitis, diverticulosis, diverticulitis, viral syndrome. No concern for acute abdomen. Plan for labs, ekg, cxr, CT abdomen/pelvis, and re-evaluation. Differential Diagnosis Differential Diagnoses: The differential diagnosis associated with the presentation includes as above. Admission/Observation not indicated. Lab Data [facility] Lab Attestation statement: I reviewed the patient's lab results. as above. 04/02/25 10:19 04/02/25 10:19 Labs: Lab Results 04/02/25 04/02/25 04/02/25 Range/Units 10:19 10:20 13:37 WBC 6.1 (4.8-10.8) X10*3/uL RBC 4.69 D (4.20-5.50) X10*6/uL Hgb 11.2 L D (12.0-16.0) g/dl Hct 34.3 L (37.0-47.0) % MCV 73.1 L (80.0-98.0) fL MCH 23.9 L (27.0-33.0) pg MCHC 32.7 (31.0-35.0) g/dl RDW 15.9 (11.0-16.0) % Plt Count 316 (160-400) X10*3/uL MPV 8.7 L (9.4-12.3) fL Immature Gran % (Auto) 0.5 H (0.0-0.4) % Neut % (Auto) 68.9 (45-73) % Lymph % (Auto) 22.6 (20-40) % Collier % (Auto) 7.0 (2-11) % Eos % (Auto) 0.3 (0-4) % Baso % (Auto) 0.7 (0-2) % Lymph # (Auto) 1.4 (1.2-4.9) X10*3/uL Collier # (Auto) 0.4 (0.1-1.2) X10*3/uL Eos # (Auto) 0.0 (0.0-0.4) X10*3/uL Baso # (Auto) 0.0 (0.0-0.2) X10*3/uL Abs Immat Gran (auto) 0.03 (0.00-0.03) X10*3/uL Absolute Neuts (auto) 4.2 (2.0-8.3) x10*3/uL Absolute Nucleated RBC 0.000 (0.0-0.012) X10*3/uL Nucleated RBC % (auto) 0.0 (0.0-0.2) /100WBC Sodium 136 (135-145) mmol/L Potassium 3.0 L (3.3-5.1) mmol/L Chloride 101 (96-108) mmol/L Carbon Dioxide 18 L (22-29) mmol/L Anion Gap 20 (12-20) BUN 7 L (9-16) mg/dL Creatinine 0.71 (0.5-1.4) mg/dL Estim Creat Clear Calc 49.1 Estimated GFR > 60 Random Glucose 116 H (60-115) mg/dL Calcium 9.4 D (8.4-10.2) mg/dL Magnesium 1.7 (1.6-2.6) mg/dL Troponin I High Sens 8.0 9.8 (<3.5-17.0) ng/L Influenza Type A (PCR) NEGATIVE (Negative) Influenza Type B (PCR) NEGATIVE (Negative) RSV RNA Qual (PCR) NEGATIVE (Negative) SARS-CoV-2 RNA (RT-PCR) NEGATIVE (Negative) Independent Interpretation I performed an independent interpretation of an: EKG and Plain X-Ray Interpretation: cxr without infiltrate or consolidation ct a/p without bowel obstruction Radiology Impression Discussion of test interpretation with radiology: I have reviewed the radiologist's reading. Radiologist Impression: Date of Service: 04/02/25 Procedure(s): CT abdomen pelvis w IV con Accession Number(s): [id number] cc: Arnulfo Villalba MD; Marisela Girard~ Report Number: [id number]: Total DLP = 355.00 mGy-cm CLINICAL HISTORY: abdominal cramping, diarrhea CT abdomen and pelvis with contrast Comparison: CT/SR - CT ABDOMEN PELVIS W IV CON - 03/27/25 10:14 EDT Findings: The heart is not enlarged. Calcific atherosclerosis, including the coronary arteries. Lung bases are clear other than subsegmental compressive atelectasis adjacent to the large hiatal hernia. Multiple hepatic subcentimeter hypodensities which are too small to characterize. The liver is otherwise unremarkable. Cholecystectomy. Abdominal solid organs are otherwise unremarkable. No bowel obstruction. Mural thickening of the ascending colon. Mural thickening of the descending and sigmoid colon. Distal colonic diverticulosis without definite diverticulitis. Normal appendix. Calcified uterine fibroid. Unremarkable urinary bladder. Degenerative change of the spine. Mild bilateral hip osteoarthritis. IMPRESSION: Mural thickening of the ascending colon as well as the descending and sigmoid colon which can be seen with colitis. Distal colonic diverticulosis without evidence of diverticulitis. This document has been electronically signed by: Mike Park DO on 04/02/2025 12:44:25 Date of Service: 04/02/25 Procedure(s): XR chest 2V Accession Number(s): [id number] cc: Arnulfo Villalba MD; Marisela Girard~ CLINICAL HISTORY: chest pain 2 view chest x-ray. Comparison: CR/SR - XR CHEST 1V - 03/29/25 14:01 EDT Findings: The lungs are adequately expanded. No focal consolidation. No effusion or pneumothorax. Cardiac and mediastinal contours are stable. Moderately large hiatal hernia. No acute osseous abnormality Impression: No acute process. This document has been electronically signed by: Rich Vazquez MD on 04/02/2025 11:19:19 Independent Historian Clinical information obtained from an independent historian. History obtained from or confirmed by: Other (niece) External Record Review External record reviewed: Inpatient record, Office record, Outpatient record, Prior outpatient labs, Prior outpatient radiology, Primary care record and Outside ED record Prescription Management I considered prescription management with: Antibiotic (augmentin) Social Determinants Patient?s care significantly limited by Social Determinants of Health including: Other Social Determinant of Health Critical Care Time Critical Care Time Critical Care Time: No Discharge Plan Discharge Clinical Impression: Hypokalemia, Colitis Patient Disposition: Home, Self-Care Instructions: Potassium Content of Foods List (ED), Hypokalemia (ED), Colitis (ED) Additional Instructions: Your blood work today showed low potassium levels. Your EKG is normal. Your chest xray is normal. You tested negative for covid flu and rsv. The CT scan shows evidence of colitis. See home care instructions. I am starting you on Augmentin. take this twice daily for 7 days. Continue Zofran and immodium as needed for nausea and diarrhea. You need to follow up with your outpatient providers. Return with any new or worsening symptoms. In the case of an emergency call 911. Prescriptions: New amoxicillin-pot clavulanate 875-125 mg tablet 1 tab PO Q12H 7 Days Qty: 14 0RF No Action atorvastatin 40 mg Tablet 40 mg PO BEDTIME Qty: 30 0RF lisinopril 20 mg tablet 20 mg PO DAILY Slow-Mag 71.5 mg tablet,delayed release (DR/EC) 1 tab PO DAILY amlodipine 5 mg Tablet 5 mg PO DAILY Qty: 30 0RF Protocol: Hold for SBP< HOLD for SBP < : 90 alendronate 70 mg tablet 70 mg PO TH@0900 Rx Instructions: Take 1 tab once weekly, 1st thing in the morning, on an empty stomach, with a large glass of water (at least 6 oz) and stay upright for 30 minutes levofloxacin 750 mg Tablet 750 mg PO BEDTIME Qty: 3 0RF carvedilol 25 mg tablet 12.5 mg PO BID Qty: 90 0RF amoxicillin-pot clavulanate 875-125 mg tablet 1 tab PO TID 7 Days Qty: 21 0RF ondansetron 4 mg tablet,disintegrating 4 mg PO Q8H PRN (Reason: nausea and vomiting) Qty: 10 0RF loperamide 2 mg capsule 2 mg PO Q6H PRN (Reason: loose stool) Qty: 10 0RF fluticasone propionate 50 mcg/actuation spray,suspension 1 spray intranasal DAILY PRN (Reason: Allergic Symptoms) albuterol sulfate [Ventolin HFA] 90 mcg/actuation HFA aerosol inhaler 2 puff inhalation Q6H PRN (Reason: Respiratory Distress) acetaminophen [Tylenol Extra Strength] 500 mg tablet 1,000 mg PO Q6H PRN (Reason: Pain) mirtazapine 7.5 mg tablet 3.75 mg PO BEDTIME Qty: 30 1RF buspirone 10 mg tablet 10 mg PO BID Qty: 180 1RF lorazepam 0.5 mg tablet 0.5 mg PO BID PRN (Reason: anxiety) Qty: 60 2RF Rx Instructions: can cause balance problems paroxetine HCl 40 mg tablet 40 mg PO BEDTIME 90 Days Qty: 90 1RF mesalamine 4 gram/60 mL enema 4 g AL BEDTIME 14 Days Qty: 840 0RF polyethylene glycol 3350 [Miralax] 17 gram/dose powder 238 g PO ONCE Qty: 238 0RF Rx Instructions: mix in 64 oz of gatorade for colonoscopy prep Referrals: Arnulfo Villalba MD [Primary Care Provider] - Interventions: ED Discharge Assessment Last Done: 04/02/25 16:30 Discharge Date/Time: 04/02/25 16:31 Print Language: Tuvaluan
[2025-04-02 10:30] LABS: MANUAL DIFF FLAG NO
[2025-04-02 10:32] LABS: Basophils Percent Auto 0.7 % (0-2); Eosinophils Percent Auto 0.3 % (0-4); Hematocrit 34.3 % (37.0-47.0); Hemoglobin 11.2 g/dl (12.0-16.0); Imm Gran Abs Auto 0.03 X10*3/uL (0.00-0.03); Imm Gran Pct Auto 0.5 % (0.0-0.4); Lymphocytes Absolute Auto 1.4 X10*3/uL (1.2-4.9); Lymphocytes Percent Auto 22.6 % (20-40); Mean Corpuscular HGB Conc 32.7 g/dl (31.0-35.0); Mean Corpuscular Hemoglobin 23.9 pg (27.0-33.0); Mean Corpuscular Volume 73.1 fL (80.0-98.0); Mean Platelet Volume 8.7 fL (9.4-12.3); Monocytes Absolute Auto 0.4 X10*3/uL (0.1-1.2); Neutrophils Absolute Auto 4.2 x10*3/uL (2.0-8.3); Neutrophils Percent Auto 68.9 % (45-73); Platelet Count 316 X10*3/uL (160-400); Red Blood Count 4.69 X10*6/uL (4.20-5.50); Red Cell Distribution Width 15.9 % (11.0-16.0); White Blood Count 6.1 X10*3/uL (4.8-10.8)
[2025-04-02 10:45] LABS: Anion Gap 20 (12-20); Blood Urea Nitrogen 7 mg/dL (9-16); Calcium 9.4 mg/dL (8.4-10.2); Carbon Dioxide 18 mmol/L (22-29); Chloride 101 mmol/L (96-108); Creatinine Clr Calc Pharmacy 49.1; Estimated Glomerular Filt Rate > 60; Glucose Random 116 mg/dL (60-115); Sodium 136 mmol/L (135-145)
[2025-04-02 11:03] VITALS: BP 169/97; PULSE 96; RESP 18; TEMP 36.6; O2SAT 97
[2025-04-02] MEDS: 0.9 % Sodium Chloride 1,000 ML 999 ML IV (11:11)
[2025-04-02 11:15] LABS: Influenza A PCR NEGATIVE (Negative); Influenza B PCR NEGATIVE (Negative); Resp Syncy Virus RNA Qual PCR NEGATIVE (Negative); SARS COV2 PCR INHOUSE NEGATIVE (Negative)
[2025-04-02] MEDS: diazePAM 10 MG/2 ML CARTRIDGE 2.5 MG IVPUSH (11:15)
--- NOTE | 2025-04-02 11:19 | PC.NURSE ---
Addendum entered by Roz Langley 04/02/25 11:30: pt also reports feeling anxious/shaky pt does have hx of anxiety and takes Ativan at home Original Note: pt is alert and oriented, skin pwd, respirations even and unlabored, ls clear, pt denies chest pain at this time, but states she had chest pain this morning, pt is reporting mid abd pain, bowel sounds in all 4 quadrants, abd soft and non-tender, pt reports having intermitted diarrhea but hx of ibs and having nausea and feeling lightheaded, vs stable and ns on the monitor. pt ambulates via cane at her baseline
[2025-04-02 11:26] LABS: Magnesium 1.7 mg/dL (1.6-2.6)
[2025-04-02] MEDS: iohexoL 350 MG/ML 100 ML INFUS..BTL IV (11:43)
[2025-04-02] MEDS: Potassium Chloride/H20 10 MEQ/100 ML PIGGYBACK 100 MEQ IV ×2 (13:00→14:46)
[2025-04-02] MEDS: Magnesium Sulfate/H2O 2 GM/50 ML PIGGYBACK IV (13:00)
[2025-04-02] MEDS: Potassium Chloride Packet 20 MEQ PACKET 40 MEQ PO (13:00)
[2025-04-02 13:41] VITALS: BP 175/92; PULSE 92; RESP 16; TEMP 36.9; O2SAT 97
[2025-04-02 14:05] LABS: Troponin-I High Sensitivity 9.8 ng/L (<3.5-17.0)
[2025-04-02 14:50] VITALS: BP 141/112; PULSE 89; RESP 18; O2SAT 99
[2025-04-02 15:46] VITALS: BP 166/89; PULSE 95; RESP 16; O2SAT 97
[2025-04-02 16:30] VITALS: BP 166/89; PULSE 95; RESP 16; TEMP -17.7; TEMP 0; O2SAT 97
== END 2025-04-02 16:31 | disposition home or self-care (01) ==
PROVIDERS: Physician Assistant Medical; Emergency Provider Emergency Medicine; PCP Internal Medicine
DX: E87.6 Hypokalemia (principal); K52.9 Noninfective gastroenteritis and colitis, unspecified; R07.9 Chest pain, unspecified; D50.8 Other iron deficiency anemias; I10 Essential (primary) hypertension; M32.9 Systemic lupus erythematosus, unspecified; E78.5 Hyperlipidemia, unspecified; Z03.818 Encounter for observation for suspected exposure to other biological agents ruled out
CPT/HCPCS: 0241U; 36415; 71046; 74177; 80048; 83735; 84484; 85025; 93005; 96361; 96374; 96375; 99284; 99285; J3360; J3475; J3480; Q9967

== ENCOUNTER → 2025-04-02 10:05 | Outpatient (BNV) | payer MEDICARE, SELFPAY | PROVIDERS: Emergency Provider Emergency Medicine; PCP Internal Medicine; Visit Provider Internal Medicine | DX: I25.2 Old myocardial infarction (principal) | CPT/HCPCS: 93010 ==

== ENCOUNTER → 2025-04-02 10:12 | Outpatient (BNV) | payer MEDICARE, SELFPAY | PROVIDERS: Emergency Provider Emergency Medicine; PCP Internal Medicine; Visit Provider Radiology Vascular & Interventional Radiology | DX: K57.30 Diverticulosis of large intestine without perforation or abscess without bleeding (principal); R19.7 Diarrhea, unspecified; R07.9 Chest pain, unspecified | CPT/HCPCS: 71046; 74177 ==

== ENCOUNTER 2025-04-07 09:46 | Outpatient (AMB) | payer MEDICARE, SELFPAY ==
--- NOTE | 2025-04-07 09:57 | A.OFFVIS_ITS ---
Vital Signs 3 04/07/25 10:17 Height 5 ft Weight 119 lb BMI 23.2 BP 136/63 Blood Pressure Location Lt brachial Position Sitting Pulse 82 Intake Visit Reasons: lt breast lump near the axilla Intake Note: Patient is seen in office for evaluation of a left breast lump near the axilla. Pt c/o: feels a pulling near the left axilla for over a year, denies a lump, pain, had cyst removed in the past on the same side, mother had breast cancer at 101 yrs us/mm:03/01/25 ref Bombardier:01/13/25 Prepared Foods Supervisor Required: No Insurance Processing Clerk: Insurance Processing Clerk Present Accompanied by: Self / Same As Patient Allergies Codeine Sulfate Allergy (Severe, Verified 04/07/25 10:14) Anaphylaxis Antihistamine Allergy (Intermediate, Verified 04/07/25 10:14) Shakiness egg Allergy (Intermediate, Verified 04/07/25 10:14) Heartburn Sulfa (Sulfonamide Antibiotics) [SULFA (SULFONAMIDE ANTIBIOTICS)] Allergy (Intermediate, Verified 04/07/25 10:14) RASH diphenhydramine [From Benadryl] Allergy (Verified 04/07/25 10:14) sweats, palpitation cefuroxime Adverse Reaction (Verified 04/07/25 10:14) delerium ,[facility] Medication List - Last Reconciled 04/07/25 by Nitesh Orozco MD acetaminophen (Tylenol Extra Strength) 1,000 mg PO Q6H PRN albuterol sulfate 90 mcg/actuation (Ventolin HFA) 2 puffs inhalation Q6H PRN alendronate 70 mg PO TH@0900 amlodipine 5 mg See Protocol PO DAILY amoxicillin-pot clavulanate 875-125 mg 1 tab PO TID 7 days amoxicillin-pot clavulanate 875-125 mg 1 tab PO Q12H 7 days atorvastatin 40 mg PO BEDTIME buspirone 10 mg PO BID carvedilol 12.5 mg (1/2 x 25 mg) PO BID fluticasone propionate 50 mcg/actuation 1 spray intranasal DAILY PRN levofloxacin 750 mg PO BEDTIME lisinopril 20 mg PO DAILY loperamide 2 mg PO Q6H PRN lorazepam 0.5 mg PO BID PRN magnesium chloride (Slow-Mag) 1 tab PO DAILY mesalamine 4 grams (60 mL) MA BEDTIME 14 days mirtazapine 3.75 mg (1/2 x 7.5 mg) PO BEDTIME ondansetron 4 mg PO Q8H PRN paroxetine HCl 40 mg PO BEDTIME 90 days polyethylene glycol 3350 (Miralax) 238 grams PO ONCE HPI Comments Details: 74-year-old female patient presenting for evaluation of complaints of a pulling sensation in the left breast at the upper outer quadrant. This has been present for approximately 6 to 8 months but she is unable to feel any lumps in the breast. She reports a prior history of a skin infection and previously underwent drainage of this lesion. She denies any ongoing breast pain, redness, nipple discharge or enlarged lymph nodes. Her family history is significant for her mother developing breast cancer at the age of 101. She denies any prior personal history of breast cancer or breast surgery. Menarche at the age of 8, 0, menopause at around 49 years old. She denies hormone replacement therapy. She denies any previous breast biopsies and denies a history of ovarian cancer. Her most recent mammogram performed on 03/01/2025 revealed no mammographic evidence of malignancy no suspicious findings in the area described by the patient. In addition an ultrasound of the breast performed on 03/01/2025 also revealed no suspicious findings (BI-RADS 1). Breast composition is category B. 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 Headache Sinusitis Asthma Generalized anxiety disorder Mood disorder, drug-induced Diaphragmatic hernia Panic disorder [episodic paroxysmal anxiety] Dysthymia Hypertension Diverticulitis CVA (cerebral vascular accident) Vertigo Tubular adenoma of colon Positive colorectal cancer screening using Cologuard test Irritable bowel syndrome with both constipation and diarrhea GERD (gastroesophageal reflux disease) Depression with anxiety HTN (hypertension), benign Lupus Surgical History S/P repair of paraesophageal hernia H/O wrist surgery Hx of colonoscopy History of cholecystectomy Family History Father CAD (coronary artery disease) Maternal Grandmother HTN (hypertension), benign Father No problems noted. Mother Hypertension Asthma COPD (chronic obstructive pulmonary disease) Breast cancer, Onset Age: 101 Social History Household Members: Family Household Members Other:: niece lives upstairs Housing: House Are you a primary acute care physician to a significant other at home: No Do you presently have visiting nurse or other home services: No Alcohol intake: former Patient Tobacco Use Status: Former Tobacco user Tobacco use type: Cigarette Years Smoked: quit greater than 10 years ago Second Hand Smoke Exposure: No Advance Directives Date on File: 04/07/23 service: No Current occupational status: retired 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 Mild tenderness with palpitation of the pectoralis muscle with no overlying breast mass appreciated. Right breast: No skin change, no nipple retraction, no nipple discharge, no palpable mass, no enlarged lymph nodes Chest/axillae images: 2 1. Area of palpable tenderness upper outer quadrant left breast in the region of the pectoralis major muscle. Resp Effort & Inspection: normal respiratory effort, no audible wheezes, no cough and no respiratory distress Cardio Jugular venous distension: no JVD GI Inspection: Yes normal to inspection Skin Other: Warm, dry, no rash Neuro Other: Mobility Assessment: 1. 3 meter assessment time (seconds) 5 2. Gait observations: Ambulation with a cane General: patient oriented x3 Extrem General: Yes no clubbing, cyanosis or edema Assessment & Plan Assessment & Plan (1) Mastodynia of left breast: Code(s): N64.4 - Mastodynia Category: Medical Plan 74-year-old female patient presenting with complaints of a pulling discomfort in the left breast for least 6-8 months duration. Patient denies any palpable mass in her most recent mammogram and ultrasound were negative for any suspicious findings. Examination today revealed no suspicious findings but there was noted tenderness in the upper outer quadrant which seemed to be localized to the pectoralis major muscle. No other suspicious findings were appreciated. I recommended observation with routine breast screening including continuing her yearly mammogram. She is welcome to call for any new concerns or changes. Coding Level of Care Code New Pt Level 4 (15618) Diagnoses Mastodynia of left breast N64.4
[2025-04-07 10:17] VITALS: BP 136/63; PULSE 82; BMI 23.2
== END 2025-04-07 10:39 | disposition home or self-care (01) ==
LOC: HO.HGS 09:47
PROVIDERS: PCP Internal Medicine; Visit Provider Surgery
DX: N64.4 Mastodynia (principal)
CPT/HCPCS: 99204

== ENCOUNTER → 2025-04-07 09:46 | Outpatient (BNVA) | payer MEDICARE, SELFPAY | PROVIDERS: PCP Internal Medicine; Visit Provider Surgery | DX: N64.4 Mastodynia (principal) | CPT/HCPCS: 99202 ==

== ENCOUNTER → 2025-04-24 09:27 | Outpatient (BNVA) | payer MEDICARE, SELFPAY | PROVIDERS: PCP Internal Medicine; Visit Provider Psychiatry & Neurology Psychiatry | DX: Z13.89 Encounter for screening for other disorder (principal) ==

== ENCOUNTER 2025-04-27 09:16 | Day surgery (SDC) | payer MEDICARE, SELFPAY ==
[2025-04-25 14:19] VITALS: BMI 23.2
--- NOTE | 2025-04-26 09:52 | HO.ANESPROP2 ---
HPI - Anesthesia Eval Consult details Narrative: 74yo F for Upper Endoscopy and Colonoscopy s/p diaphragmatic hernia repair 09/2024 with GA-ETT 7 PMFSH Active Problems Active Problems: All Active Problems Mastodynia of left breast (Acute) Chronic diarrhea (Acute) Segmental colitis associated with diverticulosis (Acute) Hematemesis (Acute) Colon wall thickening (Acute) Acute on chronic anemia (Acute) Acute diverticulitis (Acute) Hyperlipidemia (Acute) Paraesophageal hernia (Acute) Cognitive impairment (Acute) Confused but orients easily (Acute) Diaphragmatic hernia (Acute) Greater trochanteric pain syndrome of both lower extremities (Acute) Poor balance (Acute) Anemia (Acute) Systemic lupus erythematosus (Acute) Trochanteric bursitis of both hips (Acute) Hypomagnesemia (Acute) Vitamin D deficiency (Acute) HTN (hypertension), benign (Acute) Asthma (Acute) S/P repair of paraesophageal hernia (Acute) Generalized anxiety disorder (Acute) Mood disorder, drug-induced (Acute) Panic disorder [episodic paroxysmal anxiety] (Acute) Dysthymia (Acute) Lupus (Acute) Depression with anxiety (Acute) GERD (gastroesophageal reflux disease) (Acute) Irritable bowel syndrome with both constipation and diarrhea (Acute) Past Medical History Medical History Major depression with psychotic features Osteoporosis with pathological fracture Dysuria 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 Mother Hypertension Asthma COPD (chronic obstructive pulmonary disease) Breast cancer, Onset Age: 101 Family history of problems with anesthesia: No Surgical History Surgical History History of open reduction and internal fixation (ORIF) procedure S/P repair of paraesophageal hernia Hx of colonoscopy History of cholecystectomy History of Problems with Anesthesia: No Social History Social History Household Members: Family Household Members Other:: niece lives upstairs Housing: House Are you a primary dog daycare provider to a significant other at home: No Do you presently have visiting nurse or other home services: No Alcohol intake: former Patient Tobacco Use Status: Former Tobacco user Tobacco use type: Cigarette Years Smoked: quit greater than 10 years ago Second Hand Smoke Exposure: No Advance Directives Date on File: 04/07/23 service: No Current occupational status: retired 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, 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 Meds Allergies Allergy/AdvReac Type Severity Reaction Status Date / Time Codeine Sulfate Allergy Severe Anaphylaxis Verified 04/27/25 10:33 diphenhydramine (From Allergy Intermediate sweats, Verified 04/27/25 10:33 Benadryl) palpitation egg Allergy Intermediate Heartburn Verified 04/27/25 10:33 Sulfa (Sulfonamide Allergy Intermediate RASH Verified 04/27/25 10:33 Antibiotics) (SULFA (SULFONAMIDE ANTIBIOTICS)) cefuroxime AdvReac Intermediate delerium Verified 04/27/25 10:33 ,paranoia Home Medications ?Medication ?Instructions ?Recorded ?Confirmed ?Last Taken ?Type fluticasone propionate 50 1 spray intranasal DAILY PRN 08/08/20 04/25/25 09/12/24 History mcg/actuation nasal Allergic Symptoms spray,suspension albuterol sulfate 90 mcg/actuation 2 puff inhalation Q6H PRN 10/22/21 04/25/25 09/12/24 History aerosol inhaler (Ventolin HFA) Respiratory Distress acetaminophen 500 mg tablet 1,000 mg PO Q6H PRN Pain 07/24/22 04/27/25 Unknown History (Tylenol Extra Strength) magnesium chloride 71.5 mg 1 tab PO DAILY 10/24/22 04/25/25 12/04/24 History (magnesium chloride) tablet,delayed release (Slow-Mag) alendronate 70 mg tablet 70 mg PO TH@0900 06/26/24 04/25/25 12/04/24 History amitriptyline 10 mg tablet 10 mg PO BEDTIME 04/24/25 04/25/25 Unknown History Exam Height,Weight and Vital Signs: Height 5 ft Weight 53.977 kg Pertinent Lab Results Pertinent Lab Results: Laboratory Tests 04/02/25 10:19 WBC 6.1 Hgb 11.2 L D Hct 34.3 L Plt Count 316 Sodium 136 Potassium 3.0 L Chloride 101 Carbon Dioxide 18 L BUN 7 L Creatinine 0.71 Narrative Narrative: EKG 04/2025 Vent. Rate : 98 BPM Atrial Rate : 98 BPM P-R Int : 138 ms QRS Dur : 70 ms QT Int : 352 ms P-R-T Axes : 46 -12 29 degrees QTcB Int : 449 ms Normal sinus rhythm Minimal voltage criteria for LVH, may be normal variant ( R in aVL ) Inferior infarct (cited on or before 10-Sep-2024) Cannot rule out Anterior infarct , age undetermined - noted in previous tracings Abnormal ECG NM mik perf SPECT rest & str 2023 Impression: 1. Myocardial perfusion imaging study shows likely normal myocardial perfusion 2. Gated LVEF is 67% 3. Transient ischemic dilatation not present Nondiagnostic changes on EKG. Assessment and Plan Assessment Anesthesia Assessment: Chart Reviewed Final Anesthetic Review Family History of Problems with Anesthesia: No History of Problems with Anesthesia: No
[2025-04-27 09:59] VITALS: BMI 22.3
[2025-04-27 10:09] VITALS: BP 159/95; PULSE 97; RESP 18; TEMP 36.7; O2SAT 97
[2025-04-27] MEDS: Lactated Ringers 1,000 ML 100 ML IVCONT (10:15)
--- NOTE | 2025-04-27 10:25 | P.CONAN_ITS ---
[facility], LAT[facility] Active Problems Active Problems: All Active Problems (Updated 04/25/25 @ 14:12 by Katy Loving RN) Mastodynia of left breast (Acute) Chronic diarrhea (Acute) Segmental colitis associated with diverticulosis (Acute) Hematemesis (Acute) Colon wall thickening (Acute) Acute on chronic anemia (Acute) Acute diverticulitis (Acute) Hyperlipidemia (Acute) Paraesophageal hernia (Acute) Cognitive impairment (Acute) Confused but orients easily (Acute) Diaphragmatic hernia (Acute) Greater trochanteric pain syndrome of both lower extremities (Acute) Poor balance (Acute) Anemia (Acute) Systemic lupus erythematosus (Acute) Trochanteric bursitis of both hips (Acute) Hypomagnesemia (Acute) Vitamin D deficiency (Acute) HTN (hypertension), benign (Acute) Asthma (Acute) S/P repair of paraesophageal hernia (Acute) Generalized anxiety disorder (Acute) Mood disorder, drug-induced (Acute) Panic disorder [episodic paroxysmal anxiety] (Acute) Dysthymia (Acute) Lupus (Acute) Depression with anxiety (Acute) GERD (gastroesophageal reflux disease) (Acute) Irritable bowel syndrome with both constipation and diarrhea (Acute) Past Medical History Medical History Major depression with psychotic features Osteoporosis with pathological fracture Dysuria 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 Mother Hypertension Asthma COPD (chronic obstructive pulmonary disease) Breast cancer, Onset Age: 101 Family history of problems with anesthesia: No Surgical History Surgical History History of open reduction and internal fixation (ORIF) procedure S/P repair of paraesophageal hernia Hx of colonoscopy History of cholecystectomy History of Problems with Anesthesia: No Social History Social History Household Members: Family Household Members Other:: niece lives upstairs Housing: House Are you a primary primary care sales representative to a significant other at home: No Do you presently have visiting nurse or other home services: No Alcohol intake: former Patient Tobacco Use Status: Former Tobacco user Tobacco use type: Cigarette Years Smoked: quit greater than 10 years ago Second Hand Smoke Exposure: No Have you been hit, kicked, punched, or otherwise hurt by someone within the past year? 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 Meds Allergies Allergy/AdvReac Type Severity Reaction Status Date / Time Codeine Sulfate Allergy Severe Anaphylaxis Verified 04/07/25 10:14 diphenhydramine (From Allergy Intermediate sweats, Verified 04/25/25 14:13 Benadryl) palpitation egg Allergy Intermediate Heartburn Verified 04/07/25 10:14 Sulfa (Sulfonamide Allergy Intermediate RASH Verified 04/07/25 10:14 Antibiotics) (SULFA (SULFONAMIDE ANTIBIOTICS)) cefuroxime AdvReac Intermediate delerium Verified 04/25/25 14:13 ,paranoia Active Medications: Current Medications Albuterol Sulfate (Albuterol Sulfate (0.083%) 2.5 Mg/3 Ml Vial.Neb) 2.5 mg INHALE ONCE PRN PRN Reason: Shortness of Breath/Wheezing Lactated Ringer's (Lr) 1,000 mls @ 100 mls/hr IVCONT .Q10H RAMONA Last Admin: 04/27/25 10:15 Dose: 100 mls/hr Home Medications ?Medication ?Instructions ?Recorded ?Confirmed ?Last Taken ?Type fluticasone propionate 50 1 spray intranasal DAILY PRN 08/08/20 04/25/25 09/12/24 History mcg/actuation nasal Allergic Symptoms spray,suspension albuterol sulfate 90 mcg/actuation 2 puff inhalation Q 6H PRN 10/22/21 04/25/25 09/12/24 History aerosol inhaler (Ventolin HFA) Respiratory Distress acetaminophen 500 mg tablet 1,000 mg PO Q6H PRN Pain 0 07/24/22 04/07/25 Unknown History (Tylenol Extra Strength) magnesium chloride 71.5 mg 1 tab PO DAILY 10/24/2212/04/24 History (magnesium chloride) tablet,delayed release (Slow-Mag) alendronate 70 mg tablet 70 mg PO TH@0900 06/26/2412/04/24 History amitriptyline 10 mg tablet 10 mg PO BEDTIME 04/24/25 0 04/25/25 Unknown History Exam Height,Weight and Vital Signs: Height 5 ft Weight 51.891 kg Last Vital Signs Temp 98.1 F 04/27/25 10:09 Pulse 97 04/27/25 10:09 Resp 18 04/27/25 10:09 BP 159/95 H 04/27/25 10:09 Pulse Ox 97 04/27/25 10:09 O2 Del Method Room Air 04/27/25 10:09 Airway Mallampati Class: III TM Dist: >3cm Neck ROM: Full Denture: Upper and Lower Heart: RRR Lungs: CTA Assessment and Plan Assessment Anesthesia Assessment: Anesthesia Plan Discussed Final Anesthetic Review Family History of Problems with Anesthesia: No History of Problems with Anesthesia: No NPO: Yes ASA Class: III Final Preanesthetic Review: Meds/Allgs Chart Reviewed, Consent Obtained/Reviewed and Anes Risks/Benef Reviewed Patient Risk: Intermediate Procedure Risk: Low Anesthetic Plan Anesthetic Plan: MAC: Disposition: Standard PACU
--- NOTE | 2025-04-27 10:32 | MHC.SHP ---
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 Headache Sinusitis Asthma Generalized anxiety disorder Mood disorder, drug-induced Diaphragmatic hernia Panic disorder [episodic paroxysmal anxiety] Dysthymia Hypertension Diverticulitis CVA (cerebral vascular accident) Vertigo Tubular adenoma of colon Positive colorectal cancer screening using Cologuard test Irritable bowel syndrome with both constipation and diarrhea GERD (gastroesophageal reflux disease) Depression with anxiety HTN (hypertension), benign Lupus Surgical History S/P repair of paraesophageal hernia H/O wrist surgery Hx of colonoscopy History of cholecystectomy Present Medications: see Short Stay Collaborative assessment Allergies: Allergies Allergy/AdvReac Type Severity Reaction Status Date / Time Codeine Sulfate Allergy Severe Anaphylaxis Verified 04/07/25 10:14 diphenhydramine (From Allergy Intermediate sweats, Verified 04/25/25 14:13 Benadryl) palpitation egg Allergy Intermediate Heartburn Verified 04/07/25 10:14 Sulfa (Sulfonamide Allergy Intermediate RASH Verified 04/07/25 10:14 Antibiotics) (SULFA (SULFONAMIDE ANTIBIOTICS)) cefuroxime AdvReac Intermediate delerium Verified 04/25/25 14:13 ,paranoia Review of Systems Review of Systems Comment: Ten point ROS negative Exam Exam Comment: Gen appear: No acute distress HEENT: no icterus Chest: No overt resp distress Abd: soft, nontender, nondistended Psych: Stable affect, answering questions appropriately Neuro: A/Ox3 noted to move all extremities spontaneously Ext: no peripheral edema Plan Diagnosis/Plan: Unchanged I have reviewed the history and physical and performed a pertinent physical examination on my patient. No changes have occurred unless specified. Time Spent With Patient Time: Total time managing care of this patient today ____ minutes.
[2025-04-27 11:30] VITALS: BP 100/55; PULSE 78; RESP 16; TEMP 36.2; O2SAT 97
--- NOTE | 2025-04-27 11:40 | P.OPN-COLO_ITS ---
Colonoscopy Operative Note Operative Note Date of Service: 04/27/25 Narrative: Procedure: Upper endoscopy and colonoscopy Indication: Recurrent diverticulitis, chronic diarrhea Endoscopist: Nevin Alcala MD Anesthesia Provider: Dr Marleni Calderon Anesthesia type: MAC Instrument: [id number] and [id number] EGD Procedure:?? The procedure, indications, preparation and potential complications were reviewed with the patient, who indicated understanding and gave written informed consent to proceed. The endoscope was introduced through the mouth, and advanced to the 2nd part of the duodenum. The mucosa was carefully examined on slow withdrawal of the endoscope. The patient tolerated the procedure well. There were no immediate complications.? EGD Findings:? * Esophagus:? Diffuse erythema and ulceration noted in the lower esophagus with whitish exudate suspicious for Lindsay versus esophagitis desiccans superfic ialis. Cold forceps biopsies were taken for histology. The Z-line was at 30 cm displaced upwards by hiatal hernia with the diaphragmatic pinch at 34 cm. * Stomach:? Normal gastric mucosa. Retroflexion was performed in the cardia that showed a wide-open Hill grade IV hiatal hernia. * Duodenum:? Normal duodenal mucosa. Cold forceps biopsies were taken from the duodenal bulb and 2nd portion of the duodenum to rule out celiac sprue. Colonoscopy Procedure:? The patient was then turned for the colonoscopy. A digital rectal exam was performed which was normal.? A distal attachment cap was affixed to the tip of the scope and the colonoscope was then inserted through the anus and advanced through the colon and advanced to the cecum at 75 cm and terminal ileum.? Appendiceal orifice and ileocecal valve were identified. Mucosa was carefully examined under high definition white light as the instrument was slowly withdrawn in a retrograde panoramic fashion. Retroflexion was performed in rectum. The procedure was not difficult. The quality of the prep was BBPS: 2+2+3 = adequate Withdrawal time 12 minutes Limitations: No limitations Findings: Mucosa: Liquid stool with some solid debris was present in the right colon which was flushed and suctioned out. Loss of normal vascular pattern with small whitish exudate noted in the cecum. Remaining colon mucosa appeared endoscopically normal. Terminal ileum was normal. Cold forceps biopsies were taken from all portions of the colon. Protruding lesions: * One sessile polyp of size 6 mm noted in ascending colon. Cold snare polypectomy was performed. The polyp was completely removed and retrieved. * One sessile polyp of size 4 mm noted in transverse colon. Cold snare polypectomy was performed. The polyp was completely removed and retrieved. * Medium internal hemorrhoids without stigmata of recent bleeding. Excavated lesions: * Mild to moderate diverticulosis of left colon. Impression: 1. Esophagitis r/o lindsay (biopsy) 2. Hiatal hernia 3. Normal stomach 4. Normal duodenum (biopsy) 5. Abnormal cecal mucosa (biopsy) 6. Total of 2 polyps removed 7. Diverticulosis 8. Hemorrhoids Recommendations:?? * Follow-up path results * If path confirms lindsay will Rx fluconazole * Outpatient barium swallow for evaluation of hiatal hernia * Repeat colonoscopy for CRC screening in 5-7 years.
[2025-04-27 11:45] VITALS: BP 129/67; PULSE 69; RESP 14; O2SAT 97
[2025-04-27 12:00] VITALS: BP 132/60; PULSE 76; RESP 16; O2SAT 98
--- NOTE | 2025-04-27 12:12 | HO.POSTANES ---
Post Anesthesia Evaluation Post Anesthesia Evaluation Date of Service: 04/27/25 Vital Signs: Vital Signs Temp Pulse Resp BP Pulse Ox O2 Del Method 04/27/25 12:00 76 16 132/60 98 Room Air 04/27/25 11:45 69 14 129/67 97 Room Air 04/27/25 11:30 97.1 F 78 16 100/55 L 97 Room Air 04/27/25 10:09 98.1 F 97 18 159/95 H 97 Room Air Anesthesia: Monitored Mental Status: Awake Pain Control: Satisfactory Nausea/Vomiting: None Hydration: Adequate Anesthesia-Related Issues: No Anes. Related Issues
[2025-04-27 12:13] VITALS: BP 145/68; PULSE 75; RESP 16; TEMP 36.6; O2SAT 98
== END 2025-04-27 12:47 | disposition home or self-care (01) ==
PROVIDERS: PCP Internal Medicine; Visit Provider Internal Medicine
PROC: (CPT 45385; principal; 2025-04-27 11:30)
DX: K52.9 Noninfective gastroenteritis and colitis, unspecified (principal); D12.2 Benign neoplasm of ascending colon; D12.3 Benign neoplasm of transverse colon; K52.832 Lymphocytic colitis; K57.30 Diverticulosis of large intestine without perforation or abscess without bleeding; K64.8 Other hemorrhoids; B37.81 Candidal esophagitis; K20.80 Other esophagitis without bleeding; K44.9 Diaphragmatic hernia without obstruction or gangrene; K22.9 Disease of esophagus, unspecified; I10 Essential (primary) hypertension; E78.5 Hyperlipidemia, unspecified; M32.9 Systemic lupus erythematosus, unspecified; J45.909 Unspecified asthma, uncomplicated; Z86.73 Personal history of transient ischemic attack (TIA), and cerebral infarction without residual deficits; Z87.891 Personal history of nicotine dependence
CPT/HCPCS: 45385; 45380; 43239; 88300; 88305; 88313; J2003; J2704

== ENCOUNTER → 2025-04-27 09:16 | Outpatient (BNV) | payer MEDICARE, SELFPAY | PROVIDERS: PCP Internal Medicine; Visit Provider Internal Medicine | DX: K20.90 Esophagitis, unspecified without bleeding (principal); K57.90 Diverticulosis of intestine, part unspecified, without perforation or abscess without bleeding; K52.9 Noninfective gastroenteritis and colitis, unspecified; D12.2 Benign neoplasm of ascending colon; D12.3 Benign neoplasm of transverse colon; K64.8 Other hemorrhoids | CPT/HCPCS: 43239; 45385 ==

== ENCOUNTER 2025-05-12 03:50 | Emergency (ER) | payer MEDICARE, SELFPAY ==
--- NOTE | ~2025-05-12 | CT_ITS ---
CLINICAL HISTORY: bilateral abd pain, hx diverticulitis CT abdomen and pelvis with contrast Comparison: CT/SR - CT ABDOMEN PELVIS W IV CON - 04/02/25 11:35 EDT Findings: CT abdomen: Emphysematous changes in the lung bases without acute infiltrate. There is a fat containing left-sided Bochdalek type hernia. Multilevel degenerative disc disease and degenerative facet disease throughout the thoracolumbar spine without acute bony abnormality. Large hiatal hernia is again seen with a large amount of ingested contents seen within the hiatal hernia. There is wall thickening within the hiatal hernia extending into the subdiaphragmatic stomach. Wall thickening is most pronounced in the region of the gastric antrum within the subdiaphragmatic stomach. Fluid-filled loops of nondilated small bowel are seen throughout the abdomen and pelvis. Small cysts within the liver. Fatty infiltration seen within the left lobe of the liver adjacent to the falciform ligament no concerning hepatic mass lesions. Main portal vein is patent. Spleen, pancreas, adrenal glands, and kidneys are unremarkable for acute findings Gallbladder is not visualized. No free air. CT pelvis: Dense vascular calcification of the abdominal aorta without aneurysmal dilatation. Wall thickening of the rectum extending into the sigmoid colon, descending colon, and mid to distal transverse colon additional areas of wall thickening seen at the level of the cecum extending into the ascending colon. Appendix is normal. No findings to suggest perforation or obstruction Dense calcification off the posterior aspect of the right aspect of the uterus, likely a degenerated fibroid. IMPRESSION: 1. Multifocal proctocolitis as above without perforation or obstruction. 2. Negative CT of the appendix. This document has been electronically signed by: Terrance Larsen MD on 05/12/2025 06:52:54
[2025-05-12 04:08] VITALS: BP 136/72; PULSE 97; RESP 20; TEMP 36.4; O2SAT 96; BMI 23.2
[2025-05-12 04:40] LABS: MANUAL DIFF FLAG NO
[2025-05-12 04:41] LABS: Hematocrit 33.8 % (37.0-47.0); Hemoglobin 11.0 g/dl (12.0-16.0); Imm Gran Abs Auto 0.02 X10*3/uL (0.00-0.03); Imm Gran Pct Auto 0.4 % (0.0-0.4); Lymphocytes Absolute Auto 1.3 X10*3/uL (1.2-4.9); Mean Corpuscular HGB Conc 32.5 g/dl (31.0-35.0); Mean Corpuscular Hemoglobin 24.2 pg (27.0-33.0); Mean Corpuscular Volume 74.3 fL (80.0-98.0); NRBC Abs Auto 0.000 X10*3/uL (0.0-0.012); NRBC Pct Auto 0.0 /100WBC (0.0-0.2); Platelet Count 374 X10*3/uL (160-400); Red Blood Count 4.55 X10*6/uL (4.20-5.50); White Blood Count 4.7 X10*3/uL (4.8-10.8)
[2025-05-12 05:03] LABS: Alanine Aminotransferase 17 U/L (0-31); Albumin Level 4.3 g/dL (3.5-5.0); Alkaline Phosphatase 82 U/L (39-117); Anion Gap 16 (12-20); Aspartate Amino Transferase 33 U/L (5-31); Blood Urea Nitrogen 11 mg/dL (9-16); Calcium 9.0 mg/dL (8.4-10.2); Carbon Dioxide 19 mmol/L (22-29); Chloride 106 mmol/L (96-108); Creatinine Clr Calc Pharmacy 45.9; Estimated Glomerular Filt Rate > 60; Lipase 16 U/L (8-78); Magnesium 1.9 mg/dL (1.6-2.6); Potassium 4.0 mmol/L (3.3-5.1); Sodium 137 mmol/L (135-145); Total Protein 6.9 g/dL (6.5-8.0)
--- NOTE | 2025-05-12 05:35 | ED.ABDPAIN ---
HPI - Abdominal Pain General Chief Complaint: Abdominal Pain Stated Complaint: diverticulitis flare up Time Seen by Provider: 05/12/25 05:25 Source: patient Mode of arrival: ambulatory Limitations: no limitations History of Present Illness ED Provider: Dr. Jazlyn Solitario HPI narrative: Patient comes to the emergency room complaining of bilateral lower quadrant pain. Pain started yesterday, complaining of nausea and diarrhea, no vomiting. Patient states that she has had multiple episodes of a combination of colitis and diverticulitis. Patient denies fever chills, complaining of intermittent dysuria, no hematuria. Related Data Home Medications ?Medication ?Instructions ?Recorded ?Confirmed fluticasone propionate 50 1 spray intranasal DAILY PRN 08/08/20 04/25/25 mcg/actuation nasal Allergic Symptoms spray,suspension albuterol sulfate 90 mcg/actuation 2 puff inhalation Q6H PRN 10/22/21 04/25/25 aerosol inhaler (Ventolin HFA) Respiratory Distress acetaminophen 500 mg tablet 1,000 mg PO Q6H PRN Pain 07/24/22 04/27/25 (Tylenol Extra Strength) magnesium chloride 71.5 mg 1 tab PO DAILY 10/24/22 04/25/25 (magnesium chloride) tablet,delayed release (Slow-Mag) alendronate 70 mg tablet 70 mg PO TH@0900 06/26/24 04/25/25 amitriptyline 10 mg tablet 10 mg PO BEDTIME 04/24/25 04/25/25 Previous Rx's ?Medication ?Instructions ?Recorded atorvastatin 40 mg tablet 40 mg PO BEDTIME #30 tabs 05/27/21 amlodipine 5 mg tablet 5 mg PO DAILY #30 tabs 10/26/22 carvedilol 25 mg tablet 12.5 mg (1/2 x 25 mg) PO BID #90 12/08/24 tabs lorazepam 0.5 mg tablet 0.5 mg PO BID PRN anxiety #60 tabs 03/03/25 paroxetine HCl 40 mg tablet 40 mg PO BEDTIME 90 days #90 tabs 03/03/25 mesalamine 4 gram/60 mL enema 4 g (60 mL) OK BEDTIME 14 days 03/08/25 #840 mL loperamide 2 mg capsule 2 mg PO Q6H PRN loose stool #10 03/28/25 caps buspirone 15 mg tablet 15 mg PO BID #60 tabs 04/24/25 levofloxacin 500 mg tablet 500 mg PO DAILY #7 tabs 05/12/25 metronidazole 500 mg tablet 500 mg PO BID #14 tabs 05/12/25 oxycodone 5 mg tablet 5 mg PO BID PRN pain #7 tabs 05/12/25 Allergies Allergy/AdvReac Type Severity Reaction Status Date / Time Codeine Sulfate Allergy Severe Anaphylaxis Verified 05/12/25 04:15 diphenhydramine (From Allergy Intermediate sweats, Verified 05/12/25 04:15 Benadryl) palpitation egg Allergy Intermediate Heartburn Verified 05/12/25 04:15 Sulfa (Sulfonamide Allergy Intermediate RASH Verified 05/12/25 04:15 Antibiotics) (SULFA (SULFONAMIDE ANTIBIOTICS)) cefuroxime AdvReac Intermediate delerium Verified 05/12/25 04:15 ,paranoia Review of Systems Review of Systems Constitutional : No Weight loss, No Fever, No Chills, No Night Sweats, No Fatigue, No Malaise ENT/Mouth : No Hearing loss, No Ear Pain, No Nasal Congestion, No Sinus Pain, No Hoarseness, No sore throat, No Rhinorrhea, No Swallowing Difficulty Eyes: No Eye Pain, No Swelling, No Redness, No Foreign Body, No Discharge, No Vision Changes Cardiovascular : No Chest Pain, No SOB, No Dyspnea on Exertion, No Orthopnea, No Edema, No Palpitations Respiratory : No Cough, No Sputum, No Wheezing, No Smoke Exposure, No Dyspnea Gastrointestinal : Complaining of Nausea, No Vomiting, complaining of Diarrhea, No Constipation, complaining of bilateral lower quadrant pain Genitourinary : no irregular bleeding, No Dysuria, No Urinary Frequency, No Hematuria, No Urinary Incontinence, No Urgency, No Flank Pain, No Urinary Flow Changes, No Hesitancy Musculoskeletal : No joint pain, No Myalgias, No Joint Swelling Skin : No Skin Lesions, No rash Neuro : No Weakness, No Numbness, No Paresthesias, No Loss of Consciousness, No Dizziness, No Headache Psych : No Anxiety/Panic, No Depression, No SI/HI/AH/VH, No Social Issues, Heme/Lymph: No Bruising, No Bleeding,No Lymphadenopathy Endocrine : No Polyuria, No Polydipsia, No Temperature Intolerance PMFSH Past Medical History Medical History Major depression with psychotic features Osteoporosis with pathological fracture Dysuria 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 Sinusitis Asthma Generalized anxiety disorder Mood disorder, drug-induced Panic disorder [episodic paroxysmal anxiety] Dysthymia Hypertension Diverticulitis CVA (cerebral vascular accident) Vertigo Irritable bowel syndrome with both constipation and diarrhea GERD (gastroesophageal reflux disease) Depression with anxiety Lupus Surgical History History of open reduction and internal fixation (ORIF) procedure S/P repair of paraesophageal hernia Hx of colonoscopy History of cholecystectomy Family History Family History Father CAD (coronary artery disease) Maternal Grandmother HTN (hypertension), benign Father No problems noted. Mother Hypertension Asthma COPD (chronic obstructive pulmonary disease) Breast cancer, Onset Age: 101 Social History Social History Household Members: Family Household Members Other:: niece lives upstairs Housing: House Are you a primary continuum of care manager to a significant other at home: No Do you presently have visiting nurse or other home services: No Alcohol intake: former Patient Tobacco Use Status: Former Tobacco user Tobacco use type: Cigarette Years Smoked: quit greater than 10 years ago Smoked in Last 30 Days: No Second Hand Smoke Exposure: No Use of substances other than those prescribed or required for medical reasons: No Advance Directives: Yes Advance Directives on File: Yes Advance Directives Date on File: 04/07/23 service: No Current occupational status: retired 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 Patient receiving IV fluids, Zofran, morphine, CAT scan pending Medical Decision Making Medical Decision Making MDM Narrative: My interpretation of labs: No significant abnormality in patient's hematology, chronic anemia at baseline, no significant abnormality in patient's chemistry, normal LFTs CT scan of the abdomen shows proctocolitis. Patient was given p.o. antibiotics here in the emergency room. Differential Diagnosis Differential Diagnoses: The differential diagnosis associated with the presentation includes (Diverticulosis, diverticulitis, colitis, chronic diarrhea, ulcerative colitis) Admission/Observation Consideration of admission/observation: Escalation of care including admission/observation considered (Given patient's symptoms and presentation and past medical history, observation/admission was considered) Lab Data MDM Lab Attestation statement: I reviewed the patient's lab results. 05/12/25 04:35 05/12/25 04:35 Labs: Lab Results 05/12/25 Range/Units 04:35 WBC 4.7 L (4.8-10.8) X10*3/uL RBC 4.55 (4.20-5.50) X10*6/uL Hgb 11.0 L (12.0-16.0) g/dl Hct 33.8 L (37.0-47.0) % MCV 74.3 L (80.0-98.0) fL MCH 24.2 L (27.0-33.0) pg MCHC 32.5 (31.0-35.0) g/dl RDW 18.8 H (11.0-16.0) % Plt Count 374 (160-400) X10*3/uL MPV 8.7 L (9.4-12.3) fL Immature Gran % (Auto) 0.4 (0.0-0.4) % Neut % (Auto) 59.0 (45-73) % Lymph % (Auto) 28.5 (20-40) % [place] % (Auto) 8.6 (2-11) % Eos % (Auto) 2.4 (0-4) % Baso % (Auto) 1.1 (0-2) % Lymph # (Auto) 1.3 (1.2-4.9) X10*3/uL [place] # (Auto) 0.4 (0.1-1.2) X10*3/uL Eos # (Auto) 0.1 (0.0-0.4) X10*3/uL Baso # (Auto) 0.1 (0.0-0.2) X10*3/uL Abs Immat Gran (auto) 0.02 (0.00-0.03) X10*3/uL Absolute Neuts (auto) 2.8 (2.0-8.3) x10*3/uL Absolute Nucleated RBC 0.000 (0.0-0.012) X10*3/uL Nucleated RBC % (auto) 0.0 (0.0-0.2) /100WBC Sodium 137 (135-145) mmol/L Potassium 4.0 D (3.3-5.1) mmol/L Chloride 106 (96-108) mmol/L Carbon Dioxide 19 L (22-29) mmol/L Anion Gap 16 (12-20) BUN 11 (9-16) mg/dL Creatinine 0.76 (0.5-1.4) mg/dL Estim Creat Clear Calc 45.9 Estimated GFR > 60 Random Glucose 115 (60-115) mg/dL Calcium 9.0 (8.4-10.2) mg/dL Magnesium 1.9 (1.6-2.6) mg/dL Total Bilirubin 0.3 (0.0-1.0) mg/dL Direct Bilirubin 0.1 (0.0-0.5) mg/dL AST 33 H (5-31) U/L ALT 17 (0-31) U/L Alkaline Phosphatase 82 (39-117) U/L Total Protein 6.9 (6.5-8.0) g/dL Albumin 4.3 (3.5-5.0) g/dL Lipase 16 (8-78) U/L Independent Interpretation I performed an independent interpretation of an: CT Scan Radiology Impression Discussion of test interpretation with radiology: I have reviewed the radiologist's reading. Radiologist Impression: Emphysematous changes in the lung bases without acute infiltrate. There is a fat containing left-sided Bochdalek type hernia. Multilevel degenerative disc disease and degenerative facet disease throughout the thoracolumbar spine without acute bony abnormality. Large hiatal hernia is again seen with a large amount of ingested contents seen within the hiatal hernia. There is wall thickening within the hiatal hernia extending into the subdiaphragmatic stomach. Wall thickening is most pronounced in the region of the gastric antrum within the subdiaphragmatic stomach. Fluid-filled loops of nondilated small bowel are seen throughout the abdomen and pelvis. Small cysts within the liver. Fatty infiltration seen within the left lobe of the liver adjacent to the falciform ligament no concerning hepatic mass lesions. Main portal vein is patent. Spleen, pancreas, adrenal glands, and kidneys are unremarkable for acute findings Gallbladder is not visualized. No free air. CT pelvis: Dense vascular calcification of the abdominal aorta without aneurysmal dilatation. Wall thickening of the rectum extending into the sigmoid colon, descending colon, and mid to distal transverse colon additional areas of wall thickening seen at the level of the cecum extending into the ascending colon. Appendix is normal. No findings to suggest perforation or obstruction Dense calcification off the posterior aspect of the right aspect of the uterus, likely a degenerated fibroid. IMPRESSION: 1. Multifocal proctocolitis as above without perforation or obstruction. 2. Negative CT of the appendix. Medications Administered Discontinued Medications Generic Name Dose Route Start Last Admin Trade Name Freq PRN Reason Stop Dose Admin Sodium Chloride 1,000 mls @ 999 mls/hr 05/12/25 05:37 05/12/25 05:53 Ns IVCONT 05/12/25 06:37 999 mls/hr .Q1H1M ONE Administration Morphine Sulfate 4 mg 05/12/25 05:37 05/12/25 05:53 Morphine Sulfate 4 Mg/Ml Cartridge IVPUSH 05/12/25 05:38 4 mg ONCE ONE Administration Protocol Ondansetron HCl 4 mg 05/12/25 05:37 05/12/25 05:53 Ondansetron Hcl 4 Mg/2 Ml Vial IVPUSH 05/12/25 05:38 4 mg ONCE ONE Administration Critical Care Time Critical Care Time Critical Care Time: Yes Total Critical Care Time: 45 Attestation: I have personally provided critical care time. Time includes review of lab data, radiology results, discussion with consultants, and monitoring for potential decompensation. Intervention performed as documented. Discharge Plan Discharge Clinical Impression: Proctocolitis Patient Disposition: Home, Self-Care Instructions: Acute Diarrhea (ED), Colitis (ED) Additional Instructions: Please follow-up with your primary care physician tomorrow. If you have any worsening or new symptoms, please return to the emergency room or call 911 Prescriptions: New levofloxacin 500 mg tablet 500 mg PO DAILY Qty: 7 0RF metronidazole 500 mg tablet 500 mg PO BID Qty: 14 0RF Rx Instructions: Do not consume any alcohol while taking this medication. oxycodone 5 mg tablet 5 mg PO BID PRN (Reason: pain) Qty: 7 0RF Rx Instructions: Partial Fill upon patient request. No Action atorvastatin 40 mg Tablet 40 mg PO BEDTIME Qty: 30 0RF Slow-Mag 71.5 mg tablet,delayed release (DR/EC) 1 tab PO DAILY amlodipine 5 mg Tablet 5 mg PO DAILY Qty: 30 0RF Protocol: Hold for SBP< HOLD for SBP < : 90 alendronate 70 mg tablet 70 mg PO TH@0900 Rx Instructions: Take 1 tab once weekly, 1st thing in the morning, on an empty stomach, with a large glass of water (at least 6 oz) and stay upright for 30 minutes carvedilol 25 mg tablet 12.5 mg PO BID Qty: 90 0RF loperamide 2 mg capsule 2 mg PO Q6H PRN (Reason: loose stool) Qty: 10 0RF fluticasone propionate 50 mcg/actuation spray,suspension 1 spray intranasal DAILY PRN (Reason: Allergic Symptoms) albuterol sulfate [Ventolin HFA] 90 mcg/actuation HFA aerosol inhaler 2 puff inhalation Q6H PRN (Reason: Respiratory Distress) acetaminophen [Tylenol Extra Strength] 500 mg tablet 1,000 mg PO Q6H PRN (Reason: Pain) lorazepam 0.5 mg tablet 0.5 mg PO BID PRN (Reason: anxiety) Qty: 60 2RF Rx Instructions: can cause balance problems paroxetine HCl 40 mg tablet 40 mg PO BEDTIME 90 Days Qty: 90 1RF amitriptyline 10 mg tablet 10 mg PO BEDTIME buspirone 15 mg tablet 15 mg PO BID Qty: 60 2RF mesalamine 4 gram/60 mL enema 4 g OK BEDTIME 14 Days Qty: 840 0RF Print Language: Azerbaijani
[2025-05-12 07:08] VITALS: BP 148/79; PULSE 77; RESP 16; O2SAT 97
[2025-05-12 07:14] VITALS: BP 148/79; PULSE 77; RESP 16; TEMP -17.7; TEMP 0; O2SAT 97
== END 2025-05-12 07:16 | disposition home or self-care (01) ==
PROVIDERS: Emergency Provider Emergency Medicine; PCP Internal Medicine
DX: K51.30 Ulcerative (chronic) rectosigmoiditis without complications (principal); R10.30 Lower abdominal pain, unspecified; M32.9 Systemic lupus erythematosus, unspecified; I10 Essential (primary) hypertension; J45.909 Unspecified asthma, uncomplicated
CPT/HCPCS: 36415; 74177; 80053; 82248; 83690; 83735; 85025; 96361; 96374; 96375; 99284; J2270; J2405

== ENCOUNTER → 2025-05-12 05:31 | Outpatient (BNV) | payer MEDICARE, SELFPAY | PROVIDERS: Emergency Provider Emergency Medicine; PCP Internal Medicine; Visit Provider Radiology Diagnostic Radiology | DX: K63.89 Other specified diseases of intestine (principal) | CPT/HCPCS: 74177 ==

== ENCOUNTER 2025-05-14 07:48 | Emergency (ER) | payer MEDICARE, SELFPAY ==
[2025-05-14 07:53] VITALS: BP 140/92; PULSE 116; RESP 20; TEMP 36.2; O2SAT 98; BMI 21.9
[2025-05-14 08:35] LABS: MANUAL DIFF FLAG NO
[2025-05-14 08:36] LABS: Hematocrit 31.7 % (37.0-47.0); Hemoglobin 10.3 g/dl (12.0-16.0); Imm Gran Abs Auto 0.02 X10*3/uL (0.00-0.03); Imm Gran Pct Auto 0.4 % (0.0-0.4); Lymphocytes Absolute Auto 0.9 X10*3/uL (1.2-4.9); Mean Corpuscular HGB Conc 32.5 g/dl (31.0-35.0); Mean Corpuscular Hemoglobin 24.5 pg (27.0-33.0); Mean Corpuscular Volume 75.5 fL (80.0-98.0); NRBC Abs Auto 0.000 X10*3/uL (0.0-0.012); NRBC Pct Auto 0.0 /100WBC (0.0-0.2); Platelet Count 312 X10*3/uL (160-400); Red Blood Count 4.20 X10*6/uL (4.20-5.50); White Blood Count 4.6 X10*3/uL (4.8-10.8)
[2025-05-14 08:52] LABS: Alanine Aminotransferase 10 U/L (0-31); Albumin Level 4.3 g/dL (3.5-5.0); Alkaline Phosphatase 74 U/L (39-117); Anion Gap 16 (12-20); Aspartate Amino Transferase 25 U/L (5-31); Blood Urea Nitrogen 10 mg/dL (9-16); Calcium 8.9 mg/dL (8.4-10.2); Carbon Dioxide 21 mmol/L (22-29); Chloride 104 mmol/L (96-108); Creatinine Clr Calc Pharmacy 44.7; Estimated Glomerular Filt Rate > 60; Potassium 3.8 mmol/L (3.3-5.1); Sodium 137 mmol/L (135-145); Total Protein 6.9 g/dL (6.5-8.0)
--- NOTE | 2025-05-14 09:11 | PC.NURSE ---
patient a&ox3, c/o 03/11 abd pain, iv inserted, labs drawn, pt awaiting provider evaluation, call lauren within reach, plan of care ongoing
--- NOTE | 2025-05-14 10:05 | ED.GENADULT ---
HPI - General Adult General Chief complaint: General Medical Stated complaint: headaches and almost fainted Time Seen by Provider: 05/14/25 10:05 Source: patient Mode of arrival: ambulatory Limitations: no limitations History of Present Illness ED Provider: HPI narrative: 74-year-old woman presenting with what she describes as reaction to Flagyl, she takes Flagyl for proctocolitis, she took 500 mg and it was too much for her she states she has multiple medication sensitivities and she felt like she was out of her body and we will assist her stomach and she would like either a different medication of the medication to be adjusted no fevers or chills no ongoing nausea or vomiting at the time of my evaluation she states she went to the bathroom and she does continue to have loose stools. Related Data Home Medications ?Medication ?Instructions ?Recorded ?Confirmed fluticasone propionate 50 1 spray intranasal DAILY PRN 08/08/20 04/25/25 mcg/actuation nasal Allergic Symptoms spray,suspension albuterol sulfate 90 mcg/actuation 2 puff inhalation Q6H PRN 10/22/21 04/25/25 aerosol inhaler (Ventolin HFA) Respiratory Distress acetaminophen 500 mg tablet 1,000 mg PO Q6H PRN Pain 07/24/22 04/27/25 (Tylenol Extra Strength) magnesium chloride 71.5 mg 1 tab PO DAILY 10/24/22 04/25/25 (magnesium chloride) tablet,delayed release (Slow-Mag) alendronate 70 mg tablet 70 mg PO TH@0900 06/26/24 04/25/25 amitriptyline 10 mg tablet 10 mg PO BEDTIME 04/24/25 04/25/25 Previous Rx's ?Medication ?Instructions ?Recorded atorvastatin 40 mg tablet 40 mg PO BEDTIME #30 tabs 05/27/21 amlodipine 5 mg tablet 5 mg PO DAILY #30 tabs 10/26/22 carvedilol 25 mg tablet 12.5 mg (1/2 x 25 mg) PO BID #90 12/08/24 tabs lorazepam 0.5 mg tablet 0.5 mg PO BID PRN anxiety #60 tabs 03/03/25 paroxetine HCl 40 mg tablet 40 mg PO BEDTIME 90 days #90 tabs 03/03/25 mesalamine 4 gram/60 mL enema 4 g (60 mL) HI BEDTIME 14 days 03/08/25 #840 mL loperamide 2 mg capsule 2 mg PO Q6H PRN loose stool #10 03/28/25 caps buspirone 15 mg tablet 15 mg PO BID #60 tabs 04/24/25 levofloxacin 500 mg tablet 500 mg PO DAILY #7 tabs 05/12/25 oxycodone 5 mg tablet 5 mg PO BID PRN pain #7 tabs 05/12/25 metronidazole 250 mg tablet 250 mg PO QID 7 days #28 tabs 05/14/25 Allergies Allergy/AdvReac Type Severity Reaction Status Date / Time Codeine Sulfate Allergy Severe Anaphylaxis Verified 05/14/25 07:58 diphenhydramine (From Allergy Intermediate sweats, Verified 05/14/25 07:58 Benadryl) palpitation egg Allergy Intermediate Heartburn Verified 05/14/25 07:58 Sulfa (Sulfonamide Allergy Intermediate RASH Verified 05/14/25 07:58 Antibiotics) (SULFA (SULFONAMIDE ANTIBIOTICS)) cefuroxime AdvReac Intermediate delerium Verified 05/14/25 07:58 ,paranoia Review of Systems Constitutional: Constitutional: Reports as per HPI [facility] Past Medical History Medical History Major depression with psychotic features Osteoporosis with pathological fracture Dysuria 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 Sinusitis Asthma Generalized anxiety disorder Mood disorder, drug-induced Panic disorder [episodic paroxysmal anxiety] Dysthymia Hypertension Diverticulitis CVA (cerebral vascular accident) Vertigo Irritable bowel syndrome with both constipation and diarrhea GERD (gastroesophageal reflux disease) Depression with anxiety Lupus Surgical History History of open reduction and internal fixation (ORIF) procedure S/P repair of paraesophageal hernia Hx of colonoscopy History of cholecystectomy Family History Family History Father CAD (coronary artery disease) Maternal Grandmother HTN (hypertension), benign Father No problems noted. Mother Hypertension Asthma COPD (chronic obstructive pulmonary disease) Breast cancer, Onset Age: 101 Social History Social History Household Members: Family Household Members Other:: niece lives upstairs Housing: House Are you a primary critical care physician to a significant other at home: No Do you presently have visiting nurse or other home services: No Alcohol intake: former Patient Tobacco Use Status: Former Tobacco user Tobacco use type: Cigarette Years Smoked: quit greater than 10 years ago Smoked in Last 30 Days: No Second Hand Smoke Exposure: No Use of substances other than those prescribed or required for medical reasons: No Advance Directives: No Advance Directives Information Provided: No Advance Directives Date on File: 04/07/23 Do you have a plan to hurt others: No Plan service: No Current occupational status: retired 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, 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 Physical Exam ED Vital Signs: Vital Signs - 24 hr 05/14/25 07:53 Temperature 97.2 F Pulse Rate 116 H Respiratory Rate 20 Blood Pressure 140/92 H Pulse Oximetry 98 Oxygen Delivery Method Room Air BMI result Body Mass Index 21.9 Const Other: Gen: ?Overall well-appearing patient HEENT: PERRLA, EOMI, MMM, no scleral icterus Neck: Supple, no LAD CV: RRR, no obvious murmurs appreciated Resp: ?No wheezing rales rhonchi no stridor moving air well Abd: ?Bowel sounds are present, no tenderness no rebound no rigidity MSK: FROM, strength 5/5 all extremities Skin: Warm, dry, intact, Neuro: ?Alert and oriented x3, moving upper and lower extremities symmetrically, no obvious facial asymmetry noted Medical Decision Making Medical Decision Making [facility] Narrative: Well-appearing woman, reports sensitivities to medications, we will adjust her metronidazole from 500 twice a day to 250 4 times a day, she can follow up with the PCP, she has had recurrent visits recurrent CTs for colitis, proctitis colitis, diverticulitis, abdominal exam is benign, nonfebrile, vital signs are reassuring otherwise do not feel that repeat imaging is indicated at this time Differential Diagnosis Differential Diagnoses: The differential diagnosis associated with the presentation includes Perforated diverticulitis, colitis, dehydration, volvulus, SBO, Lab Data [facility] Lab Attestation statement: I reviewed the patient's lab results. 05/14/25 08:31 05/14/25 08:31 Labs: Lab Results 05/14/25 Range/Units 08:31 WBC 4.6 L (4.8-10.8) X10*3/uL RBC 4.20 (4.20-5.50) X10*6/uL Hgb 10.3 L (12.0-16.0) g/dl Hct 31.7 L (37.0-47.0) % MCV 75.5 L (80.0-98.0) fL MCH 24.5 L (27.0-33.0) pg MCHC 32.5 (31.0-35.0) g/dl RDW 18.9 H (11.0-16.0) % Plt Count 312 (160-400) X10*3/uL MPV 8.6 L (9.4-12.3) fL Immature Gran % (Auto) 0.4 (0.0-0.4) % Neut % (Auto) 67.9 (45-73) % Lymph % (Auto) 19.3 L (20-40) % Jerome % (Auto) 10.2 (2-11) % Eos % (Auto) 1.3 (0-4) % Baso % (Auto) 0.9 (0-2) % Lymph # (Auto) 0.9 L (1.2-4.9) X10*3/uL Jerome # (Auto) 0.5 (0.1-1.2) X10*3/uL Eos # (Auto) 0.1 (0.0-0.4) X10*3/uL Baso # (Auto) 0.0 (0.0-0.2) X10*3/uL Abs Immat Gran (auto) 0.02 (0.00-0.03) X10*3/uL Absolute Neuts (auto) 3.1 (2.0-8.3) x10*3/uL Absolute Nucleated RBC 0.000 (0.0-0.012) X10*3/uL Nucleated RBC % (auto) 0.0 (0.0-0.2) /100WBC Sodium 137 (135-145) mmol/L Potassium 3.8 (3.3-5.1) mmol/L Chloride 104 (96-108) mmol/L Carbon Dioxide 21 L (22-29) mmol/L Anion Gap 16 (12-20) BUN 10 (9-16) mg/dL Creatinine 0.78 (0.5-1.4) mg/dL Estim Creat Clear Calc 44.7 Estimated GFR > 60 Random Glucose 91 (60-115) mg/dL Calcium 8.9 (8.4-10.2) mg/dL Total Bilirubin 0.3 (0.0-1.0) mg/dL AST 25 (5-31) U/L ALT 10 (0-31) U/L Alkaline Phosphatase 74 (39-117) U/L Total Protein 6.9 (6.5-8.0) g/dL Albumin 4.3 (3.5-5.0) g/dL Tests considered The following testing was considered but not selected: CT abdomen and pelvis with IV contrast Discharge Plan Discharge Clinical Impression: Anemia, Medication reaction Patient Disposition: Home, Self-Care Additional Instructions: I discontinued your Flagyl from 2 times a day to Flagyl 250 mg which is the smaller dose 4 times a day, follow up with the PCP, you repeat blood work does not reveal any changes, you continue to have microcytic anemia which is consistent with iron deficiency anemia, this can be managed by a PCP on outpatient basis given the fact that you have multiple reactions to medications iron supplements is something I am not going to prescribe at this time, the rest of the ER workup has been reviewed as well and your vital signs and physical exam reassuring Prescriptions: New metronidazole 250 mg tablet 250 mg PO QID 7 Days Qty: 28 0RF Discontinued metronidazole 500 mg tablet 500 mg PO BID Qty: 14 0RF Rx Instructions: Do not consume any alcohol while taking this medication. No Action atorvastatin 40 mg Tablet 40 mg PO BEDTIME Qty: 30 0RF Slow-Mag 71.5 mg tablet,delayed release (DR/EC) 1 tab PO DAILY amlodipine 5 mg Tablet 5 mg PO DAILY Qty: 30 0RF Protocol: Hold for SBP< HOLD for SBP < : 90 alendronate 70 mg tablet 70 mg PO TH@0900 Rx Instructions: Take 1 tab once weekly, 1st thing in the morning, on an empty stomach, with a large glass of water (at least 6 oz) and stay upright for 30 minutes carvedilol 25 mg tablet 12.5 mg PO BID Qty: 90 0RF levofloxacin 500 mg tablet 500 mg PO DAILY Qty: 7 0RF oxycodone 5 mg tablet 5 mg PO BID PRN (Reason: pain) Qty: 7 0RF Rx Instructions: Partial Fill upon patient request. loperamide 2 mg capsule 2 mg PO Q6H PRN (Reason: loose stool) Qty: 10 0RF fluticasone propionate 50 mcg/actuation spray,suspension 1 spray intranasal DAILY PRN (Reason: Allergic Symptoms) albuterol sulfate [Ventolin HFA] 90 mcg/actuation HFA aerosol inhaler 2 puff inhalation Q6H PRN (Reason: Respiratory Distress) acetaminophen [Tylenol Extra Strength] 500 mg tablet 1,000 mg PO Q6H PRN (Reason: Pain) lorazepam 0.5 mg tablet 0.5 mg PO BID PRN (Reason: anxiety) Qty: 60 2RF Rx Instructions: can cause balance problems paroxetine HCl 40 mg tablet 40 mg PO BEDTIME 90 Days Qty: 90 1RF amitriptyline 10 mg tablet 10 mg PO BEDTIME buspirone 15 mg tablet 15 mg PO BID Qty: 60 2RF mesalamine 4 gram/60 mL enema 4 g HI BEDTIME 14 Days Qty: 840 0RF Referrals: Arnulfo Villalba MD [Primary Care Provider, Medical] - 1 week Clinical Impression: Anemia; Medication reaction Print Language: Citizen Of [place]
[2025-05-14 10:50] VITALS: BP 138/88; PULSE 100; RESP 18; TEMP 36.7; O2SAT 98
== END 2025-05-14 10:51 | disposition home or self-care (01) ==
PROVIDERS: Emergency Provider Emergency Medicine; PCP Internal Medicine
DX: R51.9 Headache, unspecified (principal); D64.9 Anemia, unspecified; Z76.0 Encounter for issue of repeat prescription; Z79.899 Other long term (current) drug therapy
CPT/HCPCS: 36415; 80053; 85025; 99283

== ENCOUNTER 2025-05-15 19:56 | Emergency (ER) | payer MEDICARE, SELFPAY ==
[2025-05-15 20:01] VITALS: BP 118/82; PULSE 101; RESP 16; TEMP 36.4; O2SAT 98; BMI 21.8
--- NOTE | 2025-05-15 20:07 | ED.GENADULT ---
HPI - General Adult General Chief complaint: Nausea/Vomiting/Diarrhea Stated complaint: vomitting Time Seen by Provider: 05/15/25 23:30 Source: patient, RN notes reviewed and old records reviewed Mode of arrival: ambulatory Limitations: no limitations History of Present Illness ED Provider: Dr. Kathe Jain HPI narrative: 74 year old female with extensive PMH including IBS, diverticulitis and HTN, panic disorder and Lupus presenting with continued nausea, vomiting, diarrhea and generalized abdominal pain and bloating ongoing for the last several weeks. Was seen here yesterday and diagnosed with proctocolitis. States she was started on 2 antibiotics but did not start taking one of them because it wasn't ready at the pharmacy when she went there to pick it up. Began taking Flagyl and states it is making her sick . Feels as though she is unable to tolerate this medication. Has only had 2 doses. Has not taken any antiemetics or pain medications at home because I have reactions to everything . No reported fevers. No hematemesis or hematochezia. No diarrhea since coming to the ED. Related Data Home Medications ?Medication ?Instructions ?Recorded ?Confirmed fluticasone propionate 50 1 spray intranasal DAILY PRN 08/08/20 05/17/25 mcg/actuation nasal Allergic Symptoms spray,suspension albuterol sulfate 90 mcg/actuation 2 puff inhalation Q6H PRN 10/22/21 05/17/25 aerosol inhaler (Ventolin HFA) Respiratory Distress acetaminophen 500 mg tablet 1,000 mg PO Q6H PRN Pain 07/24/22 05/17/25 (Tylenol Extra Strength) omeprazole 40 mg capsule,delayed 40 mg PO DAILY 05/15/25 05/17/25 release potassium chloride 20 mEq 20 meq PO DAILY 05/15/25 05/17/25 tablet,extended release(part/cryst) buspirone 10 mg tablet 10 mg PO BID 05/17/25 05/17/25 carvedilol 25 mg tablet 25 mg PO BID 05/17/25 05/17/25 Previous Rx's ?Medication ?Instructions ?Recorded atorvastatin 40 mg tablet 40 mg PO BEDTIME #30 tabs 05/27/21 amlodipine 5 mg tablet 5 mg PO DAILY #30 tabs 10/26/22 lorazepam 0.5 mg tablet 0.5 mg PO BID PRN anxiety #60 tabs 03/03/25 paroxetine HCl 40 mg tablet 40 mg PO BEDTIME 90 days #90 tabs 03/03/25 mesalamine 4 gram/60 mL enema 4 g (60 mL) MS BEDTIME 14 days 03/08/25 #840 mL levofloxacin 500 mg tablet 500 mg PO DAILY #7 tabs 05/12/25 metronidazole 250 mg tablet 250 mg PO QID 7 days #28 tabs 05/14/25 dicyclomine 20 mg tablet 20 mg PO TID #10 tabs 05/16/25 Allergies Allergy/AdvReac Type Severity Reaction Status Date / Time Codeine Sulfate Allergy Severe Anaphylaxis Verified 05/17/25 14:56 diphenhydramine (From Allergy Intermediate sweats, Verified 05/17/25 14:56 Benadryl) palpitation egg Allergy Intermediate Heartburn Verified 05/17/25 14:56 Sulfa (Sulfonamide Allergy Intermediate RASH Verified 05/17/25 14:56 Antibiotics) (SULFA (SULFONAMIDE ANTIBIOTICS)) cefuroxime AdvReac Intermediate delerium Verified 05/17/25 14:56 ,paranoia Review of Systems Review of Systems: As per HPI, all other systems reviewed and negative unless documented otherwise. [facility] Past Medical History Attestation statement: The following information was validated with the patient. 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 Surgical History History of open reduction and internal fixation (ORIF) procedure S/P repair of paraesophageal hernia Hx of colonoscopy History of cholecystectomy Family History Family History Father CAD (coronary artery disease) Maternal Grandmother HTN (hypertension), benign Father No problems noted. Mother Hypertension Asthma COPD (chronic obstructive pulmonary disease) Breast cancer, Onset Age: 101 Social History Social History Household Members: Other Household Members Other:: [facility] Housing: House Are you a primary administrator health care facility to a significant other at home: No Do you presently have visiting nurse or other home services: No Alcohol intake: former Patient Tobacco Use Status: Former Tobacco user Tobacco use type: Cigarette Years Smoked: quit greater than 10 years ago Second Hand Smoke Exposure: No Advance Directives Date on File: 04/07/23 service: No Current occupational status: retired 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 SKIN: Normal skin color for ethnicity, warm, dry, no rashes noted. HEENT:? Normocephalic, atraumatic, no stridor, dry mucous membranes, dentition intact, EOMI. NECK: Soft, supple, full ROM, midline structures nontender, no step-offs, no deformities, no lymphadenopathy. CHEST: Heart regular tachycardia, no murmurs, symmetric chest rise and fall. PULMONARY: Clear to auscultation bilaterally, diminished at the bases, no labored breathing, no wheezes/rhales/rhonchi. ABDOMINAL: Softly diistended, diffusely tender to palpation without rebound or guarding, hyperactive bowel sounds in all quadrants. : Deferred. MUSCULOSKELETAL: Normal tone, full range of motion, no deformities, no peripheral edema. NEURO: Alert and oriented x3, CN II through XII intact, equal strength and sensation bilateral upper and lower extremities, no focal neurologic deficits.? PSYCHIATRIC: Flat affect, fluid speech, good eye contact and appropriate demeanor. Course Course Course Narrative: RME performed by Danyelle Rosales PA-C. Patient is a 74 year old assigned female at presenting to the emergency department with continued abdominal pain, nausea, and vomiting. Patient states that she has been here 2 times before today for similar symptoms and it is not improving. Patient states that she has abdominal pain, nausea, and vomiting. Detailed physical exam and review of systems are deferred to the bight maker. EKG, labs, and swabs ordered. Patient placed back in the waiting room pending room availability and results. Medications Administered Discontinued Medications Generic Name Dose Route Start Last Admin Trade Name Freq PRN Reason Stop Dose Admin Droperidol 1.25 mg 05/16/25 06:52 05/16/25 07:10 Droperidol 5 Mg/2 Ml Vial IVPUSH 05/16/25 06:53 1.25 mg ONCE ONE Administration Lactated Ringer's 1,000 mls @ 999 mls/hr 05/16/25 03:03 05/16/25 05:58 Lr IV 05/16/25 04:03 Infused .Q1H1M ONE Infusion Ondansetron HCl 4 mg 05/16/25 03:04 05/16/25 03:18 Ondansetron Hcl 4 Mg/2 Ml Vial IVPUSH 05/16/25 03:05 4 mg ONCE ONE Administration Medical Decision Making Medical Decision Making [facility] Narrative: This patient presents today with a chief complaint of abdominal pain and nausea after being diagnosed with proctocolitis yesterday. . Differential diagnosis for this patient is broad.? It includes diverticulitis, appendicitis, cholecystitis, bowel obstruction, peptic ulcer disease, pyelonephritis, vascular pathology, among many others.? A broad-based workup based on history and physical examination was obtained. ? Patient was given droperidol for pain and nausea control.? Zofran did not help her nausea. Lab work is reassuring. She has no increase in her WBC, no increased frequency of diarrhea or hematochezia. I have very low concern for surgical abdomen. She needs to continue antibiotics and we had an extensive discussion about this. She is going to stop flagyl and start the levaquin that is waiting for her at the pharmacy. She is resting comfortably after droperidol and fluids and is able to tolerate food and drink at the time of discharge. Differential Diagnosis Differential Diagnoses: The differential diagnosis associated with the presentation includes ( above) Admission/Observation Consideration of admission/observation: Escalation of care including admission/observation considered Lab Data MDM Lab Attestation statement: I reviewed the patient's lab results. 05/15/25 21:00 05/15/25 21:00 Labs: Lab Results 05/15/25 Range/Units 21:00 WBC 5.9 (4.8-10.8) X10*3/uL RBC 4.67 (4.20-5.50) X10*6/uL Hgb 11.6 L (12.0-16.0) g/dl Hct 34.7 L (37.0-47.0) % MCV 74.3 L (80.0-98.0) fL MCH 24.8 L (27.0-33.0) pg MCHC 33.4 (31.0-35.0) g/dl RDW 19.5 H (11.0-16.0) % Plt Count 362 (160-400) X10*3/uL MPV 8.8 L (9.4-12.3) fL Immature Gran % (Auto) 0.3 (0.0-0.4) % Neut % (Auto) 67.0 (45-73) % Lymph % (Auto) 18.4 L (20-40) % [place] % (Auto) 9.0 (2-11) % Eos % (Auto) 4.3 H (0-4) % Baso % (Auto) 1.0 (0-2) % Lymph # (Auto) 1.1 L (1.2-4.9) X10*3/uL [place] # (Auto) 0.5 (0.1-1.2) X10*3/uL Eos # (Auto) 0.3 (0.0-0.4) X10*3/uL Baso # (Auto) 0.1 (0.0-0.2) X10*3/uL Abs Immat Gran (auto) 0.02 (0.00-0.03) X10*3/uL Absolute Neuts (auto) 3.9 (2.0-8.3) x10*3/uL Absolute Nucleated RBC 0.000 (0.0-0.012) X10*3/uL Nucleated RBC % (auto) 0.0 (0.0-0.2) /100WBC Sodium 136 (135-145) mmol/L Potassium 3.3 (3.3-5.1) mmol/L Chloride 104 (96-108) mmol/L Carbon Dioxide 18 L (22-29) mmol/L Anion Gap 17 (12-20) BUN 11 (9-16) mg/dL Creatinine 0.74 (0.5-1.4) mg/dL Estim Creat Clear Calc 47.2 Estimated GFR > 60 Random Glucose 121 H (60-115) mg/dL Calcium 9.2 (8.4-10.2) mg/dL Magnesium 1.8 (1.6-2.6) mg/dL Total Bilirubin 0.5 (0.0-1.0) mg/dL AST 25 (5-31) U/L ALT 14 (0-31) U/L Alkaline Phosphatase 78 (39-117) U/L Troponin I High Sens 7.6 (<3.5-17.0) ng/L Total Protein 7.4 (6.5-8.0) g/dL Albumin 4.6 (3.5-5.0) g/dL Influenza Type A (PCR) NEGATIVE (Negative) Influenza Type B (PCR) NEGATIVE (Negative) RSV RNA Qual (PCR) NEGATIVE (Negative) SARS-CoV-2 RNA (RT-PCR) NEGATIVE (Negative) External Record Review External record reviewed: Inpatient record and Prior outpatient radiology Prescription Management I considered prescription management with: Pain Medication and Antibiotic Chronic Conditions Patient?s care impacted by: Hypertension and Other (diverticulitis) Social Determinants Patient?s care significantly limited by Social Determinants of Health including: Problems related to primary support group Discharge Plan Discharge Clinical Impression: Nausea & vomiting, Acute generalized abdominal pain, Proctocolitis Patient Disposition: Home, Self-Care Instructions: Colitis (ED) Additional Instructions: Take your antibiotics as prescribed until the course is completed. Do not stop this medication early when you start to feel better. Return to the ER with any new or worsening symptoms. Prescriptions: New dicyclomine 20 mg tablet 20 mg PO TID Qty: 10 0RF No Action atorvastatin 40 mg Tablet 40 mg PO BEDTIME Qty: 30 0RF amlodipine 5 mg Tablet 5 mg PO DAILY Qty: 30 0RF Protocol: Hold for SBP< HOLD for SBP < : 90 levofloxacin 500 mg tablet 500 mg PO DAILY Qty: 7 0RF metronidazole 250 mg tablet 250 mg PO QID 7 Days Qty: 28 0RF carvedilol 25 mg tablet 25 mg PO BID buspirone 10 mg tablet 10 mg PO BID fluticasone propionate 50 mcg/actuation spray,suspension 1 spray intranasal DAILY PRN (Reason: Allergic Symptoms) albuterol sulfate [Ventolin HFA] 90 mcg/actuation HFA aerosol inhaler 2 puff inhalation Q6H PRN (Reason: Respiratory Distress) acetaminophen [Tylenol Extra Strength] 500 mg tablet 1,000 mg PO Q6H PRN (Reason: Pain) lorazepam 0.5 mg tablet 0.5 mg PO BID PRN (Reason: anxiety) Qty: 60 2RF Rx Instructions: can cause balance problems paroxetine HCl 40 mg tablet 40 mg PO BEDTIME 90 Days Qty: 90 1RF mesalamine 4 gram/60 mL enema 4 g MS BEDTIME 14 Days Qty: 840 0RF omeprazole 40 mg capsule,delayed release(DR/EC) 40 mg PO DAILY potassium chloride 20 mEq tablet,ER particles/crystals 20 meq PO DAILY Interventions: ED Discharge Assessment Last Done: 05/16/25 08:08 Discharge Date/Time: 05/16/25 08:09 Print Language: Ecuadorean
--- NOTE | 2025-05-15 20:08 | ECG_ITS ---
Test Reason : n/v/d Blood Pressure : */* mmHG Vent. Rate : 88 BPM Atrial Rate : 88 BPM P-R Int : 138 ms QRS Dur : 74 ms QT Int : 360 ms P-R-T Axes : 47 -10 34 degrees QTcB Int : 435 ms Normal sinus rhythm Minimal voltage criteria for LVH, may be normal variant ( R in aVL ) Inferior infarct (cited on or before 10-Sep-2024) Cannot rule out Anterior infarct (cited on or before 04-Jun-2024) Abnormal ECG When compared with ECG of 02-Apr-2025 10:09, No significant change was found Referred By: Danyelle Rosales Electronically Signed By: JERSEY WILKES
[2025-05-15 21:06] LABS: MANUAL DIFF FLAG NO
[2025-05-15 21:13] LABS: Hematocrit 34.7 % (37.0-47.0); Hemoglobin 11.6 g/dl (12.0-16.0); Imm Gran Abs Auto 0.02 X10*3/uL (0.00-0.03); Imm Gran Pct Auto 0.3 % (0.0-0.4); Lymphocytes Absolute Auto 1.1 X10*3/uL (1.2-4.9); Mean Corpuscular HGB Conc 33.4 g/dl (31.0-35.0); Mean Corpuscular Hemoglobin 24.8 pg (27.0-33.0); Mean Corpuscular Volume 74.3 fL (80.0-98.0); NRBC Abs Auto 0.000 X10*3/uL (0.0-0.012); NRBC Pct Auto 0.0 /100WBC (0.0-0.2); Platelet Count 362 X10*3/uL (160-400); Red Blood Count 4.67 X10*6/uL (4.20-5.50); White Blood Count 5.9 X10*3/uL (4.8-10.8)
[2025-05-15 21:23] LABS: Alanine Aminotransferase 14 U/L (0-31); Albumin Level 4.6 g/dL (3.5-5.0); Alkaline Phosphatase 78 U/L (39-117); Anion Gap 17 (12-20); Aspartate Amino Transferase 25 U/L (5-31); Blood Urea Nitrogen 11 mg/dL (9-16); Calcium 9.2 mg/dL (8.4-10.2); Carbon Dioxide 18 mmol/L (22-29); Chloride 104 mmol/L (96-108); Creatinine Clr Calc Pharmacy 47.2; Estimated Glomerular Filt Rate > 60; Magnesium 1.8 mg/dL (1.6-2.6); Potassium 3.3 mmol/L (3.3-5.1); Sodium 136 mmol/L (135-145); Total Protein 7.4 g/dL (6.5-8.0)
[2025-05-15 21:30] LABS: Troponin-I High Sensitivity 7.6 ng/L (<3.5-17.0)
[2025-05-15 21:48] LABS: Resp Syncy Virus RNA Qual PCR NEGATIVE (Negative); SARS COV2 PCR INHOUSE NEGATIVE (Negative)
[2025-05-15 22:02] VITALS: BP 143/89; PULSE 100; RESP 16; TEMP 36.4; O2SAT 97
--- NOTE | 2025-05-15 22:07 | PC.NURSE ---
Family reports that pt has not been taking her medications and has made statement to them that she just wants to . 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
[2025-05-16 03:14] VITALS: BP 178/93; PULSE 89; RESP 16; TEMP 36.6; O2SAT 100
[2025-05-16] MEDS: Lactated Ringers 1,000 ML 999 ML IV (03:18)
[2025-05-16 05:48] VITALS: BP 148/89; PULSE 99; RESP 16; TEMP 36.8; O2SAT 97
[2025-05-16 08:08] VITALS: BP 148/89; PULSE 99; RESP 16; TEMP 36.8; O2SAT 97
== END 2025-05-16 08:09 | disposition home or self-care (01) ==
PROVIDERS: Physician Assistant Medical; Emergency Provider Emergency Medicine; PCP Internal Medicine
DX: R19.7 Diarrhea, unspecified (principal); R11.2 Nausea with vomiting, unspecified; R10.9 Unspecified abdominal pain; R14.0 Abdominal distension (gaseous); M32.9 Systemic lupus erythematosus, unspecified; E78.2 Mixed hyperlipidemia; Z86.73 Personal history of transient ischemic attack (TIA), and cerebral infarction without residual deficits; Z03.818 Encounter for observation for suspected exposure to other biological agents ruled out
CPT/HCPCS: 80053; 83735; 84484; 85025; 87637; 93005; 96361; 96374; 96375; 99284; J1790; J2405; J7120

== ENCOUNTER → 2025-05-15 20:08 | Outpatient (BNV) | payer MEDICARE, SELFPAY | PROVIDERS: Emergency Provider Emergency Medicine; PCP Internal Medicine; Visit Provider Internal Medicine | DX: I25.2 Old myocardial infarction (principal) | CPT/HCPCS: 93010 ==

== ENCOUNTER 2025-05-17 14:45 | Inpatient (IN) | payer MEDICARE, SELFPAY ==
--- NOTE | 2025-05-17 | ECG_ITS ---
Test Reason : fall Blood Pressure : */* mmHG Vent. Rate : 105 BPM Atrial Rate : 105 BPM P-R Int : 126 ms QRS Dur : 78 ms QT Int : 364 ms P-R-T Axes : 56 -10 14 degrees QTcB Int : 481 ms Sinus tachycardia with Premature atrial complexes Possible Left atrial enlargement Minimal voltage criteria for LVH, may be normal variant ( R in aVL ) Inferior infarct (cited on or before 10-Sep-2024) Cannot rule out Anterior infarct (cited on or before 04-Jun-2024) Abnormal ECG When compared with ECG of 15-May-2025 20:47, Premature atrial complexes are now Present Referred By: Generic ED Physician Electronically Signed By: JERSEY WILKES
--- NOTE | ~2025-05-17 | CT_ITS ---
CLINICAL HISTORY: Worsening proctocolitis, now septic CT abdomen and pelvis without contrast Comparison: 05/12/2025 Findings: Lung bases clear. No acute bony abnormality. Degenerative change spine and hips. Large hiatal hernia partially visualized. Liver and spleen within normal limits. Pancreas and adrenal glands unremarkable. Gallbladder not visualized. No bilateral renal stone or hydronephrosis. No focal renal abnormality or ureteral dilation. No evidence for aortic aneurysm. No free fluid or adenopathy in the pelvis. No diverticulitis. Appendix unremarkable. Calcified uterine fibroids noted. No adnexal abnormality. Impression: No acute processes This document has been electronically signed by: Magdaleno Ruelas MD on 05/17/2025 20:02:26
[2025-05-17 14:53] VITALS: BP 123/87; BP 132/70; PULSE 105; PULSE 108; RESP 23; O2SAT 100; O2SAT 98; BMI 19.5
--- NOTE | 2025-05-17 15:28 | ED.NAVMDI ---
HPI - Nausea/Vomiting/Diarrhea General Chief complaint: Nausea/Vomiting/Diarrhea Stated complaint: ? GI bleed, dizziness, vomiting blood Time Seen by Provider: 05/17/25 15:03 Source: patient and family (Sister and niece) Mode of arrival: EMS Limitations: no limitations History of Present Illness ED Provider: Dr. Seng Pennington HPI Narrative: 74-year-old female with a history of lupus, GERD, recurrent diverticulitis, hypertension, stroke, TIA, hyperlipidemia, irritable bowel syndrome who presents emergency department for evaluation of fall x3 today. Patient states that she has been feeling very weak since being diagnosed with proctitis/diverticulitis on 05/12/2025. She has had multiple episodes of vomiting which she describes as bloody and coffee-ground emesis. She has also had multiple dark loose stools. Today she states she fell at least 3 times secondary to weakness. The patient lives alone but her niece lives in a downstairs apartment. The niece states that she did not hear her aunt moving around and went to check on her. She found the patient lying on the living room floor initially sleeping but immediately woke up when the niece called out the patient name. Patient believes she fell just prior to the niece finding her knees finding here on the living room floor. Patient was then brought to emergency department by ambulance. This is the patient's 4th visit to the Emergency Department since 05/12/2025. At that time the patient was diagnosed with proctitis and diffuse colitis/diverticulitis. She was started on Levaquin and Flagyl. She was seen again on 05/14 possible adverse reaction to Flagyl and 05/15 for continued abdominal pain, nausea and vomiting. The patient states that she has had multiple episodes of diverticulitis in his had at least 3 episodes this year. Related Data Home Medications ?Medication ?Instructions ?Recorded ?Confirmed fluticasone propionate 50 1 spray intranasal DAILY PRN 08/08/20 05/17/25 mcg/actuation nasal Allergic Symptoms spray,suspension albuterol sulfate 90 mcg/actuation 2 puff inhalation Q6H PRN 10/22/21 05/17/25 aerosol inhaler (Ventolin HFA) Respiratory Distress acetaminophen 500 mg tablet 1,000 mg PO Q6H PRN Pain 07/24/22 05/17/25 (Tylenol Extra Strength) omeprazole 40 mg capsule,delayed 40 mg PO DAILY 05/15/25 05/17/25 release potassium chloride 20 mEq 20 meq PO DAILY 05/15/25 05/17/25 tablet,extended release(part/cryst) buspirone 10 mg tablet 10 mg PO BID 05/17/25 05/17/25 carvedilol 25 mg tablet 25 mg PO BID 05/17/25 05/17/25 Previous Rx's ?Medication ?Instructions ?Recorded atorvastatin 40 mg tablet 40 mg PO BEDTIME #30 tabs 05/27/21 amlodipine 5 mg tablet 5 mg PO DAILY #30 tabs 10/26/22 lorazepam 0.5 mg tablet 0.5 mg PO BID PRN anxiety #60 tabs 03/03/25 paroxetine HCl 40 mg tablet 40 mg PO BEDTIME 90 days #90 tabs 03/03/25 mesalamine 4 gram/60 mL enema 4 g (60 mL) VT BEDTIME 14 days 03/08/25 #840 mL levofloxacin 500 mg tablet 500 mg PO DAILY #7 tabs 05/12/25 metronidazole 250 mg tablet 250 mg PO QID 7 days #28 tabs 05/14/25 dicyclomine 20 mg tablet 20 mg PO TID #10 tabs 05/16/25 Allergies Allergy/AdvReac Type Severity Reaction Status Date / Time Codeine Sulfate Allergy Severe Anaphylaxis Verified 05/17/25 14:56 diphenhydramine (From Allergy Intermediate sweats, Verified 05/17/25 14:56 Benadryl) palpitation egg Allergy Intermediate Heartburn Verified 05/17/25 14:56 Sulfa (Sulfonamide Allergy Intermediate RASH Verified 05/17/25 14:56 Antibiotics) (SULFA (SULFONAMIDE ANTIBIOTICS)) cefuroxime AdvReac Intermediate delerium Verified 05/17/25 14:56 ,paranoia Review of Systems Review of Systems: Yes all other systems are reviewed and are negative [facility] Past Medical History [facility] Narrative: Social history: The patient denies tobacco, alcohol and drug use. She lives alone but her niece lives in the downstairs apartment. 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 Surgical History History of open reduction and internal fixation (ORIF) procedure S/P repair of paraesophageal hernia Hx of colonoscopy History of cholecystectomy Family History Family History Father CAD (coronary artery disease) Maternal Grandmother HTN (hypertension), benign Father No problems noted. Mother Hypertension Asthma COPD (chronic obstructive pulmonary disease) Breast cancer, Onset Age: 101 Social History Social History Household Members: Other Household Members Other:: [place] Housing: House Are you a primary cardiac care unit nurse to a significant other at home: No Do you presently have visiting nurse or other home services: No Alcohol intake: former Patient Tobacco Use Status: Former Tobacco user Tobacco use type: Cigarette Years Smoked: quit greater than 10 years ago Second Hand Smoke Exposure: No Advance Directives Date on File: 04/07/23 service: No Current occupational status: retired 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 Exam: General: Awake, alert in no distress, strong ketotic odor to her breath. Patient has coffee-ground emesis on her shirt and in her mouth. Head: Normocephalic, atraumatic EENT: PERRL, Lids normal, sclera normal, conjunctiva normal, nose normal , ears normal, mouth revealed dry membranes with coffee-ground emesis on her tongue Neck: Supple, no adenopathy Lung: breath sounds symmetric, no wheezing, rales or rhonchi Chest: symmetric movement, nontender Heart: regular rate and rhythm, normal S1, S2 no murmurs or rubs Abdomen: soft, non-tender, moderate epigastric tenderness, moderate left lower and right lower quadrant tenderness, no rebound, no voluntary or involuntary guarding, normal bowel sounds Back: no vertebral tenderness, no CVAT Extremities: no deformities, moves all extremities symmetrically Neuro: Awake, alert, oriented, normal speech, cranial nerves intact, moves all extremities symmetrically Psych: Pleasant, cooperative Medications Administered Generic Name Dose Route Start Last Admin Trade Name Freq PRN Reason Stop Dose Admin Acetaminophen 650 mg 05/17/25 18:37 05/18/25 15:54 Acetaminophen 325 Mg Tablet PO 650 mg Q6H PRN Administration Pain, Mild 1-3,fever,headache Amlodipine Besylate 5 mg 05/18/25 09:00 05/18/25 09:36 Amlodipine Besylate 5 Mg Tablet PO Not Given DAILY RAMONA Protocol Atorvastatin Calcium 40 mg 05/17/25 21:00 05/18/25 19:53 Atorvastatin Calcium 40 Mg Tablet PO 40 mg BEDTIME RAMONA Administration Buspirone HCl 10 mg 05/17/25 21:00 05/18/25 19:53 Buspirone Hcl 10 Mg Tablet PO 10 mg BID RAMONA Administration Carvedilol 25 mg 05/17/25 21:00 05/18/25 19:53 Carvedilol 25 Mg Tablet PO 25 mg BID RAMONA Administration Protocol Dicyclomine HCl 20 mg 05/17/25 21:00 05/18/25 19:53 Dicyclomine Hcl 10 Mg Capsule PO 20 mg TID RAMONA Administration Lactated Ringer's 1,000 mls @ 100 mls/hr 05/17/25 18:45 05/19/25 00:36 Lr IVCONT 100 mls/hr .Q10H RAMONA Administration Piperacillin Sod/Tazobactam 50 mls @ 100 mls/hr 05/18/25 00:00 05/19/25 06:10 Sod 2.25 gm/ Sodium Chloride IV Infused Q6H RAMONA Infusion Lorazepam 0.5 mg 05/17/25 19:09 05/18/25 19:52 Lorazepam 0.5 Mg Tablet PO 0.5 mg BID PRN Administration Anxiety Ondansetron HCl 4 mg 05/17/25 18:37 05/18/25 05:50 Ondansetron Hcl 4 Mg/2 Ml Vial IVPUSH 4 mg Q8H PRN Administration Nausea and Vomiting Pantoprazole Sodium 40 mg 05/18/25 16:30 05/19/25 05:37 Pantoprazole Sodium 40 Mg/10 Ml Vial IVPUSH 40 mg BID@0630,1630 RAMONA Administration Paroxetine HCl 40 mg 05/17/25 21:00 05/18/25 19:52 Paroxetine Hcl 40 Mg Tablet PO 40 mg BEDTIME RAMONA Administration Potassium Chloride 20 meq 05/18/25 09:00 05/18/25 09:37 Potassium Chloride Er 20 Meq Tab.Er.Prt PO Not Given DAILY RAMONA Prochlorperazine Edisylate 10 mg 05/18/25 08:23 05/18/25 09:56 Prochlorperazine Edisylate 10 Mg/2 Ml Vial IVPUSH 10 mg Q6H PRN Administration Nausea and Vomiting Sodium Chloride 3 ml 05/18/25 00:00 05/18/25 23:34 0.9 % Sodium Chloride Flush 3 Ml Syringe IVFLUSH Not Given QSHIFT RAMONA Discontinued Medications Generic Name Dose Route Start Last Admin Trade Name Freq PRN Reason Stop Dose Admin Fentanyl 25 mcg 05/17/25 15:29 05/17/25 17:21 Fentanyl Citrate/Pf 100 Mcg/2 Ml Vial IVPUSH 05/17/25 15:30 25 mcg ONCE ONE Administration Protocol Hydralazine HCl 10 mg 05/18/25 07:56 05/18/25 08:18 Hydralazine Hcl 20 Mg/Ml Vial IVPUSH 05/18/25 07:57 10 mg ONCE ONE Administration Protocol Piperacillin Sod/Tazobactam 100 mls @ 200 mls/hr 05/17/25 16:46 05/17/25 17:57 Sod 4.5 gm/ Sodium Chloride IV 05/17/25 17:15 Infused ONCE ONE Infusion Sodium Chloride 1,360.77 mls @ 1,360.77 mls/hr 05/17/25 16:47 05/17/25 18:30 Ns 30 ml/kg infuse over 1 hr (1360.77 ml) 05/17/25 17:46 Infused IV Infusion .Q1H STA Potassium Chloride 10 meq in 100 mls @ 100 mls/hr 05/17/25 17:30 05/17/25 23:53 Potassium Chloride/H20 IV 05/17/25 21:29 Infused Q1H RAMONA Infusion Potassium Chloride 10 meq in 100 mls @ 100 mls/hr 05/18/25 07:45 05/18/25 14:19 Potassium Chloride/H20 IV 05/18/25 11:44 Infused Q1H RAMONA Infusion Labetalol HCl 10 mg 05/18/25 05:37 05/18/25 05:51 Labetalol Hcl 100 Mg/20 Ml Vial IVPUSH 05/18/25 05:38 10 mg ONCE ONE Administration Ondansetron HCl 4 mg 05/17/25 15:29 05/17/25 17:20 Ondansetron Hcl 4 Mg/2 Ml Vial IVPUSH 05/17/25 15:30 4 mg ONCE ONE Administration Pantoprazole Sodium 80 mg 05/17/25 15:29 05/17/25 17:08 Pantoprazole Sodium 40 Mg/10 Ml Vial IVPUSH 05/17/25 15:30 80 mg ONCE ONE Administration Pantoprazole Sodium 40 mg 05/18/25 06:30 05/18/25 05:50 Pantoprazole Sodium 40 Mg/10 Ml Vial IVPUSH 40 mg DAILY@0630 RAMONA Administration Medical Decision Making Medical Decision Making MDM Narrative: 74-year-old female with a history of lupus, GERD, recurrent diverticulitis, hypertension, stroke, TIA, hyperlipidemia, irritable bowel syndrome who presents emergency department for evaluation of fall x3 today, nausea, hematemesis, coffee-ground emesis, weakness, abdominal pain, diagnosed with proctitis and diverticulitis on 05/12/2025 being treated with Levaquin and Flagyl, 4th ED visit. Patient has not been able to eat for at least 2 days is only been able to drink small amounts of fluid. Vital signs revealed low-grade fever of 100.3 degrees rectally, elevated heart rate of 105 and elevated respiratory rate of 23. Patient had very strong ketotic odor to her breath. Patient had coffee-ground emesis on her shirt and in her mouth. Abdominal exam revealed epigastric and lower abdominal tenderness. 16:56 Differential diagnosis: ?Includes but is not limited to diverticulitis, proctitis, gastritis, upper GI bleed, dehydration, volume depletion, starvation ketosis, anemia, electrolyte abnormalities Course: 16:56 My independent interpretation patient's laboratory evaluation is as follows: Lactic acid is elevated 3.8. Troponins elevated at 63.8. Given the elevated lactic acid and the fact that she has proctitis/diverticulitis at this time, I will make the patient has sepsis alert. I did order normal saline 30 cc/kilogram IV bolus. I also ordered Zosyn 4.5 g IV for her proctocolitis. Patient will be treated with fentanyl 25 mcg IV. The rest of the patient's laboratory evaluation is pending. 17:29 My independent interpretation patient's laboratory evaluation is as follows: Potassium low 2.3. Bicarb low 17. BUN elevated 28 with a normal creatinine of 1.21. LFTs were normal. Lipase was normal. Troponin elevated 63.8 repeat due at 18:00 hours-most likely secondary to type 2 injury. Venous ABG: PH elevated 7.54, CO2 low 20, Bicarb low 17. Anion gap elevated 22. Hydroxybutyrate elevated 3.42. Based on the above laboratory evaluation and I suspect the patient has significant starvation ketosis secondary to malnutrition and not eating for several days as well as severe volume depletion from poor oral intake. The patient's low potassium is related to starvation/malnutrition as well as vomiting and diarrhea. I did order potassium chloride 10 mEq IV Q 1 hour x4 doses. Patient is elevated lactic acid is probably also related to starvation ketosis. C diff and GI panel are pending stool collection, the patient has had no diarrhea since she has been here in the emergency department. I did discuss admission over tiger text with the covering hospitalist, and the patient will be admitted to the hospitalist service for further treatment. Admission/Observation Consideration of admission/observation: Escalation of care including admission/observation considered (Yes) Consult Healthcare Provider Management of the patient was discussed with: Hospitalist Lab Data 05/19/25 06:49 05/18/25 06:58 Labs: Lab Results 05/17/25 05/17/25 05/17/25 Range/Units 16:02 16:03 16:05 WBC 12.8 H (4.8-10.8) X10*3/uL RBC 4.90 (4.20-5.50) X10*6/uL Hgb 11.9 L (12.0-16.0) g/dl Hct 36.1 L (37.0-47.0) % MCV 73.7 L (80.0-98.0) fL MCH 24.3 L (27.0-33.0) pg MCHC 33.0 (31.0-35.0) g/dl RDW 20.0 H (11.0-16.0) % Plt Count 432 H (160-400) X10*3/uL MPV 9.4 (9.4-12.3) fL Immature Gran % (Auto) 0.8 H (0.0-0.4) % Neut % (Auto) 84.9 H (45-73) % Lymph % (Auto) 6.5 L (20-40) % Grainger % (Auto) 7.7 (2-11) % Eos % (Auto) 0.0 (0-4) % Baso % (Auto) 0.1 (0-2) % Lymph # (Auto) 0.8 L (1.2-4.9) X10*3/uL Grainger # (Auto) 1.0 (0.1-1.2) X10*3/uL Eos # (Auto) 0.0 (0.0-0.4) X10*3/uL Baso # (Auto) 0.0 (0.0-0.2) X10*3/uL Abs Immat Gran (auto) 0.10 H (0.00-0.03) X10*3/uL Absolute Neuts (auto) 10.8 H (2.0-8.3) x10*3/uL Absolute Nucleated RBC 0.000 (0.0-0.012) X10*3/uL Nucleated RBC % (auto) 0.0 (0.0-0.2) /100WBC PT 11.1 (10.9-12.4) SEC INR 1.0 (0.9-1.1) APTT 22.2 L (26.0-36.8) SEC VBG pH (7.32-7.43) VBG pCO2 mmHg VBG pO2 mmHg VBG HCO3 (22-26) mmol/L VBG O2 Saturation % VBG Base Excess mmol/L Sodium (135-145) mmol/L Potassium (3.3-5.1) mmol/L Chloride (96-108) mmol/L Carbon Dioxide (22-29) mmol/L Anion Gap (12-20) BUN (9-16) mg/dL Creatinine (0.5-1.4) mg/dL Estim Creat Clear Calc Estimated GFR Random Glucose (60-115) mg/dL Lactic Acid 3.8 H* (0.5-2.0) mmol/L Calcium (8.4-10.2) mg/dL Total Bilirubin (0.0-1.0) mg/dL AST (5-31) U/L ALT (0-31) U/L Alkaline Phosphatase (39-117) U/L Total Creatine Kinase (26-140) U/L Troponin I High Sens 63.8 H* D (<3.5-17.0) ng/L Total Protein (6.5-8.0) g/dL Albumin (3.5-5.0) g/dL Lipase (8-78) U/L Beta-Hydroxybutyrate (0.02-0.27) mmol/L Stool Occult Blood NEGATIVE (NEGATIVE) Influenza Type A (PCR) NEGATIVE (Negative) Influenza Type B (PCR) NEGATIVE (Negative) RSV RNA Qual (PCR) NEGATIVE (Negative) SARS-CoV-2 RNA (RT-PCR) NEGATIVE (Negative) Blood Type Antibody Screen 05/17/25 05/17/25 05/17/25 Range/Units 16:54 16:55 17:02 WBC (4.8-10.8) X10*3/uL RBC (4.20-5.50) X10*6/uL Hgb (12.0-16.0) g/dl Hct (37.0-47.0) % MCV (80.0-98.0) fL MCH (27.0-33.0) pg MCHC (31.0-35.0) g/dl RDW (11.0-16.0) % Plt Count (160-400) X10*3/uL MPV (9.4-12.3) fL Immature Gran % (Auto) (0.0-0.4) % Neut % (Auto) (45-73) % Lymph % (Auto) (20-40) % Grainger % (Auto) (2-11) % Eos % (Auto) (0-4) % Baso % (Auto) (0-2) % Lymph # (Auto) (1.2-4.9) X10*3/uL Grainger # (Auto) (0.1-1.2) X10*3/uL Eos # (Auto) (0.0-0.4) X10*3/uL Baso # (Auto) (0.0-0.2) X10*3/uL Abs Immat Gran (auto) (0.00-0.03) X10*3/uL Absolute Neuts (auto) (2.0-8.3) x10*3/uL Absolute Nucleated RBC (0.0-0.012) X10*3/uL Nucleated RBC % (auto) (0.0-0.2) /100WBC PT (10.9-12.4) SEC INR (0.9-1.1) APTT (26.0-36.8) SEC VBG pH 7.54 H (7.32-7.43) VBG pCO2 20 mmHg VBG pO2 63 mmHg VBG HCO3 17 L (22-26) mmol/L VBG O2 Saturation 89.0 % VBG Base Excess -2.3 mmol/L Sodium 135 (135-145) mmol/L Potassium 2.3 L* D (3.3-5.1) mmol/L Chloride 98 (96-108) mmol/L Carbon Dioxide 17 L (22-29) mmol/L Anion Gap 22 H (12-20) BUN 28 H (9-16) mg/dL Creatinine 1.27 (0.5-1.4) mg/dL Estim Creat Clear Calc 27.4 Estimated GFR 41 Random Glucose 132 H (60-115) mg/dL Lactic Acid (0.5-2.0) mmol/L Calcium 9.6 (8.4-10.2) mg/dL Total Bilirubin 0.8 (0.0-1.0) mg/dL AST 31 (5-31) U/L ALT 13 (0-31) U/L Alkaline Phosphatase 73 (39-117) U/L Total Creatine Kinase 178 H (26-140) U/L Troponin I High Sens (<3.5-17.0) ng/L Total Protein 7.6 (6.5-8.0) g/dL Albumin 4.9 (3.5-5.0) g/dL Lipase 24 (8-78) U/L Beta-Hydroxybutyrate 3.42 H (0.02-0.27) mmol/L Stool Occult Blood (NEGATIVE) Influenza Type A (PCR) (Negative) Influenza Type B (PCR) (Negative) RSV RNA Qual (PCR) (Negative) SARS-CoV-2 RNA (RT-PCR) (Negative) Blood Type B Positive Antibody Screen NEGATIVE Independent Interpretation I performed an independent interpretation of an: EKG Interpretation: My independent interpretation patient's 12 EKG done on 05/17/2025 at 15:04 hours is as follows: Sinus tachycardi. Compared to EKG dated 05/15/2025 there were no significant changes Critical Care Time Critical Care Time Critical Care Time: Yes Total Critical Care Time: 80 Attestation: Critical Care: The patient was critically ill with a high probability of imminent or life threatening deterioration. I spent greater than 30 minutes of discontinuous time evaluating the patient,delivering critical care at the bedside, discussing and evaluating pertinent data with consultants. Critical care time does not include time spent performing separately billable procedures or teaching. Total time spent performing critical care was 80 minutes. Discharge Plan Discharge Clinical Impression: Proctocolitis, Acute hypokalemia, Ketosis, Weakness Patient Disposition: Admitted As Inpatient Interventions: Admission Worksheet (ED) Last Done: 05/17/25 19:59 Discharge Date/Time: 05/17/25 21:23
--- NOTE | 2025-05-17 15:50 | PC.NURSE ---
Multiple unsuccessful IV attempts, majority of bloodwork obtained, MD aware, awaiting USIV.
[2025-05-17 16:12] LABS: MANUAL DIFF FLAG NO
[2025-05-17 16:17] LABS: OBS Int Ctl Valid YES; OBS1 NEGATIVE (NEGATIVE)
[2025-05-17 16:25] LABS: Hematocrit 36.1 % (37.0-47.0); Hemoglobin 11.9 g/dl (12.0-16.0); Imm Gran Abs Auto 0.10 X10*3/uL (0.00-0.03); Imm Gran Pct Auto 0.8 % (0.0-0.4); Lymphocytes Absolute Auto 0.8 X10*3/uL (1.2-4.9); Mean Corpuscular HGB Conc 33.0 g/dl (31.0-35.0); Mean Corpuscular Hemoglobin 24.3 pg (27.0-33.0); Mean Corpuscular Volume 73.7 fL (80.0-98.0); NRBC Abs Auto 0.000 X10*3/uL (0.0-0.012); NRBC Pct Auto 0.0 /100WBC (0.0-0.2); Platelet Count 432 X10*3/uL (160-400); Red Blood Count 4.90 X10*6/uL (4.20-5.50); White Blood Count 12.8 X10*3/uL (4.8-10.8)
[2025-05-17 16:51] LABS: Troponin-I High Sensitivity 63.8 ng/L (<3.5-17.0)
[2025-05-17 17:04] LABS: INTERNATIONAL NORM RATIO 1.0 (0.9-1.1); Prothrombin Time 11.1 SEC (10.9-12.4)
[2025-05-17 17:05] LABS: Venous Blood Gas Refer to POC result
[2025-05-17 17:06] LABS: VBG HCO3 17 mmol/L (22-26); VBG O2 % Saturation 89.0 %
[2025-05-17 17:07] LABS: Resp Syncy Virus RNA Qual PCR NEGATIVE (Negative); SARS COV2 PCR INHOUSE NEGATIVE (Negative)
[2025-05-17] MEDS: 0.9 % Sodium Chloride 1,360.77 ML 1360.77 ML IV (17:07)
[2025-05-17 17:09] LABS: Partial Thromboplastin Time 22.2 SEC (26.0-36.8)
[2025-05-17 17:24] LABS: Alanine Aminotransferase 13 U/L (0-31); Albumin Level 4.9 g/dL (3.5-5.0); Alkaline Phosphatase 73 U/L (39-117); Anion Gap 22 (12-20); Aspartate Amino Transferase 31 U/L (5-31); Blood Urea Nitrogen 28 mg/dL (9-16); Calcium 9.6 mg/dL (8.4-10.2); Carbon Dioxide 17 mmol/L (22-29); Chloride 98 mmol/L (96-108); Creatinine Clr Calc Pharmacy 27.4; Estimated Glomerular Filt Rate 41; Lipase 24 U/L (8-78); Potassium 2.3 mmol/L (3.3-5.1); Sodium 135 mmol/L (135-145); Total Protein 7.6 g/dL (6.5-8.0)
[2025-05-17] MEDS: Potassium Chloride/H20 10 MEQ/100 ML PIGGYBACK 100 MEQ IV ×4 (17:57→22:32)
--- NOTE | 2025-05-17 18:06 | PM.IMHP ---
History of Present Illness Date of Service: 05/17/25 Attending physician on admission: Taz Reynolds Chief Complaint: Fall at home Pt is a 74-year-old female with a PMH significant for mild intermittent?asthma, HLD, HTN, cutaneous lupus, TIA, vertigo, GERD, recurrent colitis, and anxiety who presents to the ED with?generalized weakness and fall at home x3 earlier today. Pt previously presented to the ED on 05/12/2025 with lower abdominal pain radiating to back, nausea, vomiting, and diarrhea. CT of abdomen and pelvis showed multifocal proctocolitis and pt was discharged home on levofloxacin, metronidazole, and oxycodone. Pt re-presented to the ED the after 2 days as she felt the antibiotics were ?too strong? and made her feel like she was out of her body. Metronidazole dosing was halved to 250 mg and pt discharged back home. Pt reports symptoms have not resolved, and continues to experience lower abdominal pain, diarrhea, nausea, and vomiting with both right but blood and dark coffee-ground emesis. Has been unable to tolerate anything by mouth. This morning felt so weak her legs gave out and slumped to the ground 3 times when using her walker. Denies lightheadedness or dizziness. No head strike, loss of consciousness, or any significant musculoskeletal pain. Denies shortness or breath or difficulty breathing. No chest pain/pressure, palpitations. In the ED pt was tachycardic up to 105 and tachypneic up to 23. Labs were significant for leukocytosis of 12.8, potassium 2.3, anion gap 22, BUN 28, creatinine 1.27, lactic acid 3.8, troponin 63.8, and beta hydroxybutyrate 3.42. Stool negative for occult blood. CT?of abdomen/pelvis from 05/12 showed multifocal proctocolitis without perforation or obstruction. EKG demonstrated sinus tachycardia with PACs but no evidence of significant ST elevations or depressions. Pt was treated in the ED with IVF, Protonix, ondansetron, fentanyl, potassium chloride 40 mEq IV, and Zosyn. Pt is admitted to the hospital for treatment and further evaluation of proctocolitis that now meets sepsis criteria and has failed outpatient therapy, as well as CHARLENE and electrolyte abnormalities. Review of Systems Review of Systems: Negative except for that which is stated in the [facility]. 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 Mother Hypertension Asthma COPD (chronic obstructive pulmonary disease) Breast cancer, Onset Age: 101 Surgical History History of open reduction and internal fixation (ORIF) procedure S/P repair of paraesophageal hernia Hx of colonoscopy History of cholecystectomy Social History Household Members: Family Household Members Other:: niece lives upstairs Housing: House Are you a primary child day care provider to a significant other at home: No Do you presently have visiting nurse or other home services: No Alcohol intake: former Patient Tobacco Use Status: Former Tobacco user Tobacco use type: Cigarette Years Smoked: quit greater than 10 years ago Smoked in Last 30 Days: No Second Hand Smoke Exposure: No Use of substances other than those prescribed or required for medical reasons: No Advance Directives: Yes Advance Directives on File: Yes Advance Directives Date on File: 04/07/23 Do you have a plan to hurt others: No Plan service: No Current occupational status: retired 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, 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 Meds Allergies Allergy/AdvReac Type Severity Reaction Status Date / Time Codeine Sulfate Allergy Severe Anaphylaxis Verified 05/17/25 14:56 diphenhydramine (From Allergy Intermediate sweats, Verified 05/17/25 14:56 Benadryl) palpitation egg Allergy Intermediate Heartburn Verified 05/17/25 14:56 Sulfa (Sulfonamide Allergy Intermediate RASH Verified 05/17/25 14:56 Antibiotics) (SULFA (SULFONAMIDE ANTIBIOTICS)) cefuroxime AdvReac Intermediate delerium Verified 05/17/25 14:56 ,paranoia Active Medications: Current Medications Potassium Chloride (Potassium Chloride/H20) 10 meq in 100 mls @ 100 mls/hr IV Q1H RAMONA Stop: 05/17/25 21:29 Last Admin: 05/17/25 17:57 Dose: 100 mls/hr Home Medications ?Medication ?Instructions ?Recorded ?Confirmed ?Last Taken ?Type fluticasone propionate 50 1 spray intranasal DAILY PRN 08/08/20 05/17/25 09/12/24 History mcg/actuation nasal Allergic Symptoms spray,suspension albuterol sulfate 90 mcg/actuation 2 puff inhalation Q6H PRN 10/22/21 05/17/25 09/12/24 History aerosol inhaler (Ventolin HFA) Respiratory Distress acetaminophen 500 mg tablet 1,000 mg PO Q6H PRN Pain 07/24/22 05/17/25 Unknown History (Tylenol Extra Strength) omeprazole 40 mg capsule,delayed 40 mg PO DAILY 05/15/25 05/17/25 Unknown History release potassium chloride 20 mEq 20 meq PO DAILY 05/15/25 05/17/25 Unknown History tablet,extended release(part/cryst) buspirone 10 mg tablet 10 mg PO BID 05/17/25 05/17/25 Unknown History carvedilol 25 mg tablet 25 mg PO BID 05/17/25 05/17/25 Unknown History Physical Exam Vital Signs and Narrative: Vital Signs: Last Vital Signs Pulse 105 H 05/17/25 14:53 Resp 23 H 05/17/25 14:53 BP 123/87 05/17/25 14:53 Pulse Ox 100 05/17/25 14:53 O2 Del Method Room Air 05/17/25 14:53 BMI result Body Mass Index 19.5 General: AOx3, no acute distress. Appears weak and frail Resp: CTA bilaterally CVS: S1, S2, RRR GI: +BS, no distention, diffuse lower abdominal tenderness Skin: Warm, dry Neuro: Cranial nerves II-XII grossly intact bilaterally. Motor grossly intact bilaterally Musculoskeletal: Symmetric bilateral 3/5 strength of upper and lower extremity. Nonpainful preserved active ROM of upper and lower extremities. Hips and knees nontender to palpation. Extremities: No edema Psych: Appropriate affect Results Labs 05/17/25 16:02 05/17/25 16:55 Labs: Laboratory Results - last 24 hr 05/17/25 05/17/25 05/17/25 16:02 16:03 16:05 MCV 73.7 L MCH 24.3 L MCHC 33.0 RDW 20.0 H Plt Count 432 H MPV 9.4 Immature Gran % (Auto) 0.8 H Neut % (Auto) 84.9 H Lymph % (Auto) 6.5 L [place] % (Auto) 7.7 Eos % (Auto) 0.0 Baso % (Auto) 0.1 Lymph # (Auto) 0.8 L [place] # (Auto) 1.0 Eos # (Auto) 0.0 Baso # (Auto) 0.0 Abs Immat Gran (auto) 0.10 H Absolute Neuts (auto) 10.8 H Absolute Nucleated RBC 0.000 Nucleated RBC % (auto) 0.0 PT 11.1 INR 1.0 APTT 22.2 L VBG pH VBG pCO2 VBG pO2 VBG HCO3 VBG O2 Saturation VBG Base Excess Anion Gap Estim Creat Clear Calc Estimated GFR Random Glucose Lactic Acid 3.8 H* Calcium Total Bilirubin AST ALT Alkaline Phosphatase Total Creatine Kinase Total Protein Albumin Lipase Beta-Hydroxybutyrate Stool Occult Blood NEGATIVE Influenza Type A (PCR) NEGATIVE Influenza Type B (PCR) NEGATIVE RSV RNA Qual (PCR) NEGATIVE SARS-CoV-2 RNA (RT-PCR) NEGATIVE Blood Type Antibody Screen 05/17/25 05/17/25 05/17/25 16:54 16:55 17:02 MCV MCH MCHC RDW Plt Count MPV Immature Gran % (Auto) Neut % (Auto) Lymph % (Auto) [place] % (Auto) Eos % (Auto) Baso % (Auto) Lymph # (Auto) [place] # (Auto) Eos # (Auto) Baso # (Auto) Abs Immat Gran (auto) Absolute Neuts (auto) Absolute Nucleated RBC Nucleated RBC % (auto) PT INR APTT VBG pH 7.54 H VBG pCO2 20 VBG pO2 63 VBG HCO3 17 L VBG O2 Saturation 89.0 VBG Base Excess -2.3 Anion Gap 22 H Estim Creat Clear Calc 27.4 Estimated GFR 41 Random Glucose 132 H Lactic Acid Calcium 9.6 Total Bilirubin 0.8 AST 31 ALT 13 Alkaline Phosphatase 73 Total Creatine Kinase 178 H Total Protein 7.6 Albumin 4.9 Lipase 24 Beta-Hydroxybutyrate 3.42 H Stool Occult Blood Influenza Type A (PCR) Influenza Type B (PCR) RSV RNA Qual (PCR) SARS-CoV-2 RNA (RT-PCR) Blood Type B Positive Antibody Screen NEGATIVE Assessment and Plan (1) Proctocolitis: Status: Inactive (2) Hypokalemia: Status: Inactive Plan Pt is a 74-year-old female with a PMH significant for mild intermittent?asthma, HLD, HTN, cutaneous lupus, TIA, vertigo, GERD, recurrent colitis, and anxiety who presents to the ED with?generalized weakness and fall at home x3 earlier today. Pt is admitted to the hospital for treatment and further evaluation of proctocolitis that now meets sepsis criteria and has failed outpatient therapy, as well as CHARLENE and electrolyte abnormalities. Acute proctocolitis with sepsis Pt with lower abdominal pain, N/V/D, CT from 05/12 showing acute uncomplicated proctocolitis Pt has been on levofloxacin and Flagyl with worsening symptoms Pt now meets sepsis criteria with leukocytosis, tachycardia, and tachypnea; lactic acid 3.8 with repeat 2.1 Pt given IVF and started on broad-spectrum IV antibiotics in the ED Will treat with Zosyn, started 05/17/2025 IVF, bowel rest, antiemetics, and analgesics Will recheck CTA of abdomen/pelvis due to worsening symptoms Hypokalemia Potassium 2.3 time of presentation Secondary to reduced p.o. intake and GI losses from nausea, vomiting, and diarrhea Pt supplemented 40 mEq IV in the ED Follow potassium Monitor on telemetry CHARLENE Creatinine 1.27, elevated from prior of 0.74 Secondary to hypovolemia from reduced p.o. intake and GI losses from nausea, vomiting, diarrhea Pt given IVF in the ED Will place on maintenance fluids Follow creatinine Elevated troponins Initial troponin 63.8, repeat trending Pt asymptomatic, EKG without significant ischemic changes Monitor on telemetry Starvation ketoacidosis Beta hydroxybutyrate elevated 3.42, elevated lactic acid, anion gap 22 In the setting of above Treat as above Hematemesis Pt reports both bright red blood and coffee-ground emesis H&H seems stable and slightly improved from prior, though possibly slightly hemoconcentrated Protonix IV Monitor H&H Asthma Not in acute exacerbation Continue home inhalers HTN Continue amlodipine, carvedilol Anxiety Continue buspirone Full Code Attending:?Dr. Reynolds DVT Prophylaxis: Pneumatic compression due to question of hematemesis Pt will require a hospitalization of at least two nights for treatment of?acute worsening proctocolitis that failed outpatient therapy and how meets sepsis criteria, as well as CHARLENE and hypokalemia. Pt will require hospital level care for administration of IV antibiotics, IVF, IV analgesics, IV antiemetics, close monitoring of labs with electrolyte replenishment, and close cardiac monitoring. Quality Stroke Does the patient have a stroke diagnosis?: No VTE Prior VTE?: No VTE Risk Level:: Medical - moderate - high VTE Device Contraindication: N/A - Device Ordered VTE Drug Contraindication: Treatment Not Indicated
[2025-05-17 18:10] LABS: Reflex Lactate? Lactic Acid Added
[2025-05-17 18:15] VITALS: BP 166/90; PULSE 84; RESP 25; TEMP 37.1; O2SAT 99
[2025-05-17 18:31] VITALS: BP 189/68; PULSE 89; RESP 19; O2SAT 95
--- NOTE | 2025-05-17 18:34 | PHA.MEDREC ---
Addendum entered by Jim Enrique [facility] 05/17/25 18:55: MED REC CHECKED BY [facility] Original Note: Pharmacy Consult ? Medication Reconciliation Pharmacy has completed the medication reconciliation. Patient and family are poor historians. Utilized claims to confirm med list.
[2025-05-17 18:55] LABS: ~Lactic Acid-LAB USE ONLY 2.1 mmol/L (0.5-2.0)
[2025-05-17 19:00] VITALS: BP 122/77; PULSE 86; RESP 18; TEMP 36.6; O2SAT 99
[2025-05-17 19:09] LABS: Reflex Lactate? 2 N
[2025-05-17 19:23] LABS: Troponin-I High Sensitivity 60.2 ng/L (<3.5-17.0)
[2025-05-17] MEDS: Lactated Ringers 1,000 ML 100 ML IVCONT (19:30)
[2025-05-17 19:46] LABS: Cancel Lactic Acid Canceled
[2025-05-17 20:34] VITALS: BP 150/70; PULSE 108; RESP 29; TEMP 36.6; O2SAT 99
[2025-05-17 21:58] VITALS: BP 188/94; PULSE 84; RESP 18; TEMP 36.6; O2SAT 98
[2025-05-17 22:23] VITALS: BMI 21.0
[2025-05-17] MEDS: PARoxetine HCL 40 MG TABLET PO (22:32)
[2025-05-18] VITALS (9 sets, daily range): BP systolic 125–215; BP diastolic 59–102; PULSE 65–84; RESP 16–22; TEMP 36.3–37.7; O2SAT 93–99; BMI 21.0
[2025-05-18] MEDS: Lactated Ringers 1,000 ML 100 ML IVCONT ×2 (05:50→15:46)
--- NOTE | 2025-05-18 06:39 | PC.NURSE ---
Pt. BP 215/102, HR 70's - pt complaining of nausea. MD made aware. Medicated with Zofran and IV labetolol. BP trended to 203/87, HR 68. Pt states she feels shakey. MD made aware. PRN ativan given.
[2025-05-18 07:13] LABS: Hematocrit 29.2 % (37.0-47.0); Hemoglobin 9.5 g/dl (12.0-16.0); Mean Corpuscular HGB Conc 32.5 g/dl (31.0-35.0); Mean Corpuscular Hemoglobin 24.4 pg (27.0-33.0); Mean Corpuscular Volume 75.1 fL (80.0-98.0); NRBC Abs Auto 0.000 X10*3/uL (0.0-0.012); NRBC Pct Auto 0.0 /100WBC (0.0-0.2); Platelet Count 267 X10*3/uL (160-400); Red Blood Count 3.89 X10*6/uL (4.20-5.50); White Blood Count 6.1 X10*3/uL (4.8-10.8)
[2025-05-18 07:42] LABS: Troponin-I High Sensitivity 44.5 ng/L (<3.5-17.0)
[2025-05-18 07:46] LABS: Anion Gap 15 (12-20); Blood Urea Nitrogen 28 mg/dL (9-16); Calcium 8.4 mg/dL (8.4-10.2); Carbon Dioxide 20 mmol/L (22-29); Chloride 104 mmol/L (96-108); Creatinine Clr Calc Pharmacy 45.3; Estimated Glomerular Filt Rate > 60; Magnesium 1.8 mg/dL (1.6-2.6); Potassium 2.8 mmol/L (3.3-5.1); Sodium 136 mmol/L (135-145)
[2025-05-18] MEDS: Potassium Chloride/H20 10 MEQ/100 ML PIGGYBACK 100 MEQ IV ×4 (08:20→13:06)
--- NOTE | 2025-05-18 08:45 | MHC.CM.PN ---
CM met with Patient at bedside and addressed IMM with her, providing Patient with the original and a copy has been placed on the chart. Patient lives alone on the first floor of a 2 family house with her Niece living on the second floor. Patient uses a cane to assist with mobility and may benefit from a PT Eval to assist with disposition(S/P Fall & Weakness). CM has initiated and will follow for dc planning. PCP is Dr. Arnulfo Villalba and HCP is [id number] who will transport at time of dc if Patient is dc'd to home.
--- NOTE | 2025-05-18 12:00 | MHC.CLN ---
PT IS MODERATELY MALNOURISHED PT WITH 25% SIGNIFICANT WT LOSS X 6 MONTHS WITH CHRONIC POOR PO INTAKE AND MILDLY DEPLETED BODY FAT PT IS CURRENTLY NPO PT REPORTED WT LOSS R/T ACUTE ILLNESS AND UNABLE TO OBTAIN EXTENSIVE HX AND WHEN ASKED PT IF SHE WOULD LIKE A SUPPLEMENT TO GAIN WT PT STATED I DON'T KNOW PT APPEARS WEAK AND FRAIL WHEN DIET TO ADVANCE, RECOMMEND ADDING ENSURE BID TO PROVIDE 700KCALS, 40G PROTEIN FOLLOWING FOR DIET ADVANCEMENT SEE FULL ASSESSMENT
--- NOTE | 2025-05-18 15:08 | HO.PM.IMPN ---
Subjective Subjective Date of Service: 05/18/25 Interval History: Pt seen comfortably in bed Continues to experience some abdominal pain, though better than earlier Denies diarrhea Some nausea with dry heaving, has been unable to handle p.o. intake No chest pain/pressure Potassium continues to be low, will supplement with IV Review of Systems Review of Systems: Yes all other systems are reviewed and are negative Physical Exam Vital Signs: Vital Signs: Last Vital Signs Temp 98.7 F 05/18/25 10:51 Pulse 70 05/18/25 10:51 Resp 16 05/18/25 10:51 BP 130/61 05/18/25 10:51 Pulse Ox 96 05/18/25 10:51 O2 Del Method Room Air 05/18/25 10:51 BMI result Body Mass Index 21.0 General: AOx3, no acute distress Resp: CTA bilaterally CVS: S1, S2, RRR GI: +BS, no distention; mild diffuse abdominal tenderness Skin: Warm, dry Neuro: Cranial nerves II-XII grossly intact bilaterally. Motor grossly intact bilaterally Extremities: No edema Psych: Appropriate affect Objective Data Active Medications Acetaminophen (Acetaminophen 325 Mg Tablet) 650 mg PO Q6H PRN PRN Reason: Pain, Mild 1-3,fever,headache Albuterol Sulfate (Albuterol Sulfate 90 Mcg 8 Gm Inhaler) 2 puff INHALE Q6H PRN PRN Reason: Respiratory Distress Amlodipine Besylate (Amlodipine Besylate 5 Mg Tablet) 5 mg PO DAILY [facility]; Protocol Last Admin: 05/18/25 09:36 Dose: Not Given Documented By: ESPERANZA Non-Admin Reason: Nausea Comments: & vomiting Atorvastatin Calcium (Atorvastatin Calcium 40 Mg Tablet) 40 mg PO BEDTIME [facility] Last Admin: 05/17/25 22:32 Dose: 40 mg Documented By: EDGAR Buspirone HCl (Buspirone Hcl 10 Mg Tablet) 10 mg PO BID [facility] Last Admin: 05/18/25 09:36 Dose: Not Given Documented By: ESPERANZA Non-Admin Reason: Nausea Calcium Carbonate (Calcium Carbonate 750 Mg Tab.Chew) 750 mg PO Q4H PRN PRN Reason: Heartburn Carvedilol (Carvedilol 25 Mg Tablet) 25 mg PO BID [facility]; Protocol Last Admin: 05/18/25 09:37 Dose: Not Given Documented By: ESPERANZA Non-Admin Reason: Nausea Comments: & vomiting Dicyclomine HCl (Dicyclomine Hcl 10 Mg Capsule) 20 mg PO TID [facility] Last Admin: 05/18/25 14:16 Dose: 20 mg Documented By: ESPERANZA Fluticasone Propionate (Fluticasone Propionate Nasal 16 Gm Sandgap) 1 spray NOSTRIL-B DAILY PRN PRN Reason: Allergic Symptoms Lactated Ringer's (Lr) 1,000 mls @ 100 mls/hr IVCONT .Q10H [facility] Last Infusion: 05/18/25 14:20 Dose: 0 mls/hr Documented By: ESPERANZA Piperacillin Sod/Tazobactam (Sod 2.25 gm/ Sodium Chloride) 50 mls @ 100 mls/hr IV Q6H [facility] Last Admin: 05/18/25 14:17 Dose: 100 mls/hr Documented By: ESPERANZA Lorazepam (Lorazepam 0.5 Mg Tablet) 0.5 mg PO BID PRN PRN Reason: Anxiety Last Admin: 05/18/25 06:34 Dose: 0.5 mg Documented By: KAMAR Magnesium Hydroxide (Milk Of Magnesia 30 Ml Oral.Susp) 30 ml PO DAILY PRN PRN Reason: Constipation Melatonin (Melatonin 3 Mg Tablet) 6 mg PO BEDTIME PRN PRN Reason: Insomnia Morphine Sulfate (Morphine Sulfate 4 Mg/Ml Cartridge) 4 mg IVPUSH Q4H PRN; Protocol PRN Reason: Pain, Severe (Pain Scale 7-10) Ondansetron HCl (Ondansetron Hcl 4 Mg/2 Ml Vial) 4 mg IVPUSH Q8H PRN PRN Reason: Nausea and Vomiting Last Admin: 05/18/25 05:50 Dose: 4 mg Documented By: KAMAR Pantoprazole Sodium (Pantoprazole Sodium 40 Mg/10 Ml Vial) 40 mg IVPUSH DAILY@0630 [facility] Last Admin: 05/18/25 05:50 Dose: 40 mg Documented By: ANTBEN Paroxetine HCl (Paroxetine Hcl 40 Mg Tablet) 40 mg PO BEDTIME [facility] Last Admin: 05/17/25 22:32 Dose: 40 mg Documented By: EDGAR Potassium Chloride (Potassium Chloride Er 20 Meq Tab.Er.Prt) 20 meq PO DAILY [facility] Last Admin: 05/18/25 09:37 Dose: Not Given Documented By: ESPERANZA Non-Admin Reason: Nausea Prochlorperazine Edisylate (Prochlorperazine Edisylate 10 Mg/2 Ml Vial) 10 mg IVPUSH Q6H PRN PRN Reason: Nausea and Vomiting Last Admin: 05/18/25 09:56 Dose: 10 mg Documented By: ESPERANZA Sodium Chloride (0.9 % Sodium Chloride Flush 3 Ml Syringe) 3 ml IVFLUSH QSHIFT RAMONA Last Admin: 05/18/25 08:21 Dose: Not Given Documented By: ESPERANZA Non-Admin Reason: IV Running Labs 05/18/25 06:58 05/18/25 06:58 Labs: Laboratory Results - last 24 hr 05/17/25 05/17/25 05/17/25 16:02 16:03 16:05 MCV 73.7 L MCH 24.3 L MCHC 33.0 RDW 20.0 H Plt Count 432 H MPV 9.4 Immature Gran % (Auto) 0.8 H Neut % (Auto) 84.9 H Lymph % (Auto) 6.5 L [place] % (Auto) 7.7 Eos % (Auto) 0.0 Baso % (Auto) 0.1 Lymph # (Auto) 0.8 L [place] # (Auto) 1.0 Eos # (Auto) 0.0 Baso # (Auto) 0.0 Abs Immat Gran (auto) 0.10 H Absolute Neuts (auto) 10.8 H Absolute Nucleated RBC 0.000 Nucleated RBC % (auto) 0.0 PT 11.1 INR 1.0 APTT 22.2 L VBG pH VBG pCO2 VBG pO2 VBG HCO3 VBG O2 Saturation VBG Base Excess Anion Gap Estim Creat Clear Calc Estimated GFR Random Glucose Lactic Acid 3.8 H* Lactic Acid F/U @ 2Hr Calcium Magnesium Total Bilirubin AST ALT Alkaline Phosphatase Total Creatine Kinase Total Protein Albumin Lipase Beta-Hydroxybutyrate Stool Occult Blood NEGATIVE Influenza Type A (PCR) NEGATIVE Influenza Type B (PCR) NEGATIVE RSV RNA Qual (PCR) NEGATIVE SARS-CoV-2 RNA (RT-PCR) NEGATIVE Blood Type Antibody Screen 05/17/25 05/17/25 05/17/25 16:54 16:55 17:02 MCV MCH MCHC RDW Plt Count MPV Immature Gran % (Auto) Neut % (Auto) Lymph % (Auto) [place] % (Auto) Eos % (Auto) Baso % (Auto) Lymph # (Auto) [place] # (Auto) Eos # (Auto) Baso # (Auto) Abs Immat Gran (auto) Absolute Neuts (auto) Absolute Nucleated RBC Nucleated RBC % (auto) PT INR APTT VBG pH 7.54 H VBG pCO2 20 VBG pO2 63 VBG HCO3 17 L VBG O2 Saturation 89.0 VBG Base Excess -2.3 Anion Gap 22 H Estim Creat Clear Calc 27.4 Estimated GFR 41 Random Glucose 132 H Lactic Acid Lactic Acid F/U @ 2Hr Calcium 9.6 Magnesium Total Bilirubin 0.8 AST 31 ALT 13 Alkaline Phosphatase 73 Total Creatine Kinase 178 H Total Protein 7.6 Albumin 4.9 Lipase 24 Beta-Hydroxybutyrate 3.42 H Stool Occult Blood Influenza Type A (PCR) Influenza Type B (PCR) RSV RNA Qual (PCR) SARS-CoV-2 RNA (RT-PCR) Blood Type B Positive Antibody Screen NEGATIVE 05/17/25 05/18/25 18:19 06:58 MCV 75.1 L MCH 24.4 L MCHC 32.5 RDW 19.8 H Plt Count 267 D MPV 9.4 Immature Gran % (Auto) Neut % (Auto) Lymph % (Auto) [place] % (Auto) Eos % (Auto) Baso % (Auto) Lymph # (Auto) [place] # (Auto) Eos # (Auto) Baso # (Auto) Abs Immat Gran (auto) Absolute Neuts (auto) Absolute Nucleated RBC 0.000 Nucleated RBC % (auto) 0.0 PT INR APTT VBG pH VBG pCO2 VBG pO2 VBG HCO3 VBG O2 Saturation VBG Base Excess Anion Gap 15 Estim Creat Clear Calc 45.3 Estimated GFR > 60 Random Glucose 95 Lactic Acid Lactic Acid F/U @ 2Hr 2.1 H* Calcium 8.4 D Magnesium 1.8 Total Bilirubin AST ALT Alkaline Phosphatase Total Creatine Kinase Total Protein Albumin Lipase Beta-Hydroxybutyrate Stool Occult Blood Influenza Type A (PCR) Influenza Type B (PCR) RSV RNA Qual (PCR) SARS-CoV-2 RNA (RT-PCR) Blood Type Antibody Screen Assessment and Plan (1) Acute proctitis: Status: Acute Assessment and Plan: Pt is a 74-year-old female with a PMH significant for mild intermittent?asthma, HLD, HTN, cutaneous lupus, TIA, vertigo, GERD, recurrent colitis, and anxiety who presents to the ED with?generalized weakness and fall at home x3 earlier today. Pt is admitted to the hospital for treatment and further evaluation of proctocolitis that now meets sepsis criteria and has failed outpatient therapy, as well as CHARLENE and electrolyte abnormalities. Acute proctocolitis with sepsis Pt with lower abdominal pain, N/V/D; CT from 05/12 showing acute uncomplicated proctocolitis Pt has been on levofloxacin and Flagyl p.o. with worsening symptoms Pt now meets sepsis criteria with leukocytosis, tachycardia, and tachypnea; lactic acid 3.8 with repeat 2.1 Pt given IVF and started on broad-spectrum IV antibiotics in the ED Continue Zosyn, day 2 Continue IVF, bowel rest, antiemetics, and analgesics Repeat CT of abd/pelvis reassuring Hypokalemia Potassium improved but continues to be low: 2.3-->2.8 Secondary to reduced p.o. intake and GI losses from nausea, vomiting, and diarrhea Supplemented 40 mEq IV in the ED Will give additional 40 mEq IV Follow potassium Monitor on telemetry Hematemesis Pt reports both bright red blood and coffee-ground emesis Initial H&H slightly improved from prior, though possibly hemoconcentrated due to dehydration Drop in H&H today: 11.9-->9.5 Continue Protonix IV bid Monitor H&H CHARLENE, resolved Creatinine improved and back to baseline: 1.27-->0.77 Secondary to hypovolemia from reduced p.o. intake and GI losses from nausea, vomiting, diarrhea Elevated troponins Initial troponin 63.8 with repeats flat at 60.2 and 44.5 Pt asymptomatic, EKG without significant ischemic changes Likely type 2 in the setting of increased demand Monitor on telemetry Starvation ketoacidosis, resolved Beta hydroxybutyrate elevated 3.42, elevated lactic acid, anion gap 22 In the setting of above Anion gap now closed at 15 Asthma Not in acute exacerbation Continue home inhalers HTN Continue amlodipine, carvedilol Anxiety Continue buspirone Full Code Attending:?Dr. Reynolds DVT Prophylaxis: Pneumatic compression due to question of hematemesis Pt will require continued hospitalization for continued treatment with IVF, bowel rest, IV antibiotics, IV Protonix, IV potassium supplementation, and close monitoring of labs. Quality Stroke Does the patient have a stroke diagnosis?: No VTE Prior VTE?: No VTE Risk Level:: Medical - moderate - high VTE Device Contraindication: N/A - Device Ordered VTE Drug Contraindication: Treatment Not Indicated
[2025-05-18] MEDS: 0.9 % Sodium Chloride Flush 3 ML SYRINGE IVFLUSH (15:49)
[2025-05-18] MEDS: PARoxetine HCL 40 MG TABLET PO (19:52)
[2025-05-19] VITALS (7 sets, daily range): BP systolic 124–158; BP diastolic 58–68; PULSE 58–70; RESP 18; TEMP 36.3–37.3; O2SAT 95–98
[2025-05-19] MEDS: Lactated Ringers 1,000 ML 100 ML IVCONT ×2 (00:36→12:51)
[2025-05-19 06:57] LABS: Hematocrit 23.3 % (37.0-47.0); Hemoglobin 7.6 g/dl (12.0-16.0); Mean Corpuscular HGB Conc 32.6 g/dl (31.0-35.0); Mean Corpuscular Hemoglobin 24.8 pg (27.0-33.0); Mean Corpuscular Volume 75.9 fL (80.0-98.0); NRBC Abs Auto 0.000 X10*3/uL (0.0-0.012); NRBC Pct Auto 0.0 /100WBC (0.0-0.2); Platelet Count 190 X10*3/uL (160-400); Red Blood Count 3.07 X10*6/uL (4.20-5.50); White Blood Count 4.1 X10*3/uL (4.8-10.8)
[2025-05-19 07:29] LABS: Anion Gap 11 (12-20); Blood Urea Nitrogen 15 mg/dL (9-16); Calcium 7.7 mg/dL (8.4-10.2); Carbon Dioxide 23 mmol/L (22-29); Chloride 104 mmol/L (96-108); Creatinine Clr Calc Pharmacy 52.9; Estimated Glomerular Filt Rate > 60; Potassium 2.7 mmol/L (3.3-5.1); Sodium 135 mmol/L (135-145)
[2025-05-19] MEDS: Potassium Chloride ER 20 MEQ TAB.ER.PRT PO (08:30)
[2025-05-19] MEDS: Potassium Chloride/H20 10 MEQ/100 ML PIGGYBACK 100 MEQ IV ×4 (08:35→15:14)
[2025-05-19] MEDS: 0.9 % Sodium Chloride Flush 3 ML SYRINGE IVFLUSH ×3 (08:38→20:05)
--- NOTE | 2025-05-19 10:29 | MHC.CM.PN ---
Per ROUNDS discussion, Patient is not yet medically cleared for dc (H&H dropped/Black stools/GI consult pending,/K not controlled); Patient will need a PT Eval to assist with disposition. CM will follow.
[2025-05-19 10:56] LABS: CDiff Gene PCR POSITIVE (Negative)
--- NOTE | 2025-05-19 11:13 | MHC.CLN ---
F/U PT IS MODERATELY MALNOURISHED SEE FULL ASSESSMENT DATE05/18/25 DIET ADVANCED TO CLEARS RECOMMEND ADDING ENSURE CLEAR TID TO INCREASE KCALS SUPPLEMENT TO PROVIDE 720KCALS, 24G PROTEIN MONITOR PO INTAKE AND ENCOURAGE SUPPLEMENTS
[2025-05-19 11:22] LABS: CDIFF Internal ctrl Dots and bkg OK (V); CDiff Toxin Negative (Negative)
[2025-05-19 11:25] LABS: E. coli EAEC Not Detected (Not Detect.); E. coli EPEC Not Detected (Not Detect.); E. coli ETEC Not Detected (Not Detect.); E. coli STEC Not Detected (Not Detect.); Shigella sp./EIEC Not Detected (Not Detect.)
--- NOTE | 2025-05-19 15:21 | PM.GICN ---
History of Present Illness Data of Consult Service Date: 05/19/25 Primary Care Provider: Arnulfo Villalba MD HPI Reason for consult: colitis 74-year-old female with a PMH significant for mild intermittent?asthma, HLD, HTN, cutaneous lupus, TIA, vertigo, GERD, recurrent colitis, and anxiety who I am seeing for colitis and anemia. PAtient presented this time with generalized weakness and fall at home. Prior to that had been dx with proctocolitis in the ED few days before and d/c'ed home but had issues tolerating ABx. She was having ongoing lowr abdominal pain 03/11 without any radiaiton and no exacerbting or worsening factors, along with diarrhea, nausea, coffee colored emesis. Denies lightheadedness or dizziness. No head strike, loss of consciousness, or any significant musculoskeletal pain. Denies shortness or breath or difficulty breathing. No chest pain/pressure, palpitations. Due to prior CT finding of proctocolitis she was commenced on zosyn, repeat CT with improvement of colitis 05/17/25 Colonoscopy/EGD 04/27/25 esophagitis-latia tubular adenoma hiatal hernia diverticulosis, lymphocytic colitis A stool sample came back pos for c diff now. She feels improved and able to take PO diet now with no pain. No further diarrhea Review of Systems Review of Systems: Constitutional : No Weight loss, No Fever, No Chills ENT/Mouth : No sore throat, No Rhinorrhea Eyes: No Swelling, No Redness Cardiovascular : No Chest Pain, No SOB, No Edema Respiratory : No Cough, No Sputum, No Wheezing Gastrointestinal : see HPI Genitourinary : NO Dysuria, No Urinary Frequency, No Hematuria, No Urgency Musculoskeletal : no joint pain, No Myalgias, No Joint Swelling Skin : No Skin Lesions, No rash Neuro : No Weakness, No Numbness, No Dizziness, No Headache Psych : No Anxiety/Panic, No Depression Heme/Lymph: No Bruising, No Lymphadenopathy Endocrine : No Polyuria, No Polydipsia All other systems reviewed and are negative. 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 Mother Hypertension Asthma COPD (chronic obstructive pulmonary disease) Breast cancer, Onset Age: 101 Surgical History Surgical History History of open reduction and internal fixation (ORIF) procedure S/P repair of paraesophageal hernia Hx of colonoscopy History of cholecystectomy Social History Social History Household Members: Other Household Members Other:: [place] Housing: House Are you a primary acute care certified nursing assistant to a significant other at home: No Do you presently have visiting nurse or other home services: No Alcohol intake: former Patient Tobacco Use Status: Former Tobacco user Tobacco use type: Cigarette Years Smoked: quit greater than 10 years ago Second Hand Smoke Exposure: No Advance Directives Date on File: 04/07/23 service: No Current occupational status: retired 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, 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 Meds Allergies Allergy/AdvReac Type Severity Reaction Status Date / Time Codeine Sulfate Allergy Severe Anaphylaxis Verified 05/17/25 14:56 diphenhydramine (From Allergy Intermediate sweats, Verified 05/17/25 14:56 Benadryl) palpitation egg Allergy Intermediate Heartburn Verified 05/17/25 14:56 Sulfa (Sulfonamide Allergy Intermediate RASH Verified 05/17/25 14:56 Antibiotics) (SULFA (SULFONAMIDE ANTIBIOTICS)) cefuroxime AdvReac Intermediate delerium Verified 05/17/25 14:56 ,paranoia Active Medications: Current Medications Acetaminophen (Acetaminophen 325 Mg Tablet) 650 mg PO Q6H PRN PRN Reason: Pain, Mild 1-3,fever,headache Last Admin: 05/18/25 15:54 Dose: 650 mg Albuterol Sulfate (Albuterol Sulfate 90 Mcg 8 Gm Inhaler) 2 puff INHALE Q6H PRN PRN Reason: Respiratory Distress Amlodipine Besylate (Amlodipine Besylate 5 Mg Tablet) 5 mg PO DAILY [facility]; Protocol Last Admin: 05/19/25 08:31 Dose: 5 mg Atorvastatin Calcium (Atorvastatin Calcium 40 Mg Tablet) 40 mg PO BEDTIME [facility] Last Admin: 05/18/25 19:53 Dose: 40 mg Buspirone HCl (Buspirone Hcl 10 Mg Tablet) 10 mg PO BID [facility] Last Admin: 05/19/25 08:31 Dose: 10 mg Calcium Carbonate (Calcium Carbonate 750 Mg Tab.Chew) 750 mg PO Q4H PRN PRN Reason: Heartburn Carvedilol (Carvedilol 25 Mg Tablet) 25 mg PO BID [facility]; Protocol Last Admin: 05/19/25 08:31 Dose: 25 mg Dicyclomine HCl (Dicyclomine Hcl 10 Mg Capsule) 20 mg PO TID [facility] Last Admin: 05/19/25 15:11 Dose: 20 mg Fluticasone Propionate (Fluticasone Propionate Nasal 16 Gm [place]) 1 spray NOSTRIL-B DAILY PRN PRN Reason: Allergic Symptoms Lactated Ringer's (Lr) 1,000 mls @ 100 mls/hr IVCONT .Q10H [facility] Last Admin: 05/19/25 12:51 Dose: 100 mls/hr Piperacillin Sod/Tazobactam (Sod 2.25 gm/ Sodium Chloride) 50 mls @ 100 mls/hr IV Q6H [facility] Last Infusion: 05/19/25 13:15 Dose: Infused Lorazepam (Lorazepam 0.5 Mg Tablet) 0.5 mg PO BID PRN PRN Reason: Anxiety Last Admin: 05/18/25 19:52 Dose: 0.5 mg Magnesium Hydroxide (Milk Of Magnesia 30 Ml Oral.Susp) 30 ml PO DAILY PRN PRN Reason: Constipation Melatonin (Melatonin 3 Mg Tablet) 6 mg PO BEDTIME PRN PRN Reason: Insomnia Morphine Sulfate (Morphine Sulfate 4 Mg/Ml Cartridge) 4 mg IVPUSH Q4H PRN; Protocol PRN Reason: Pain, Severe (Pain Scale 7-10) Ondansetron HCl (Ondansetron Hcl 4 Mg/2 Ml Vial) 4 mg IVPUSH Q8H PRN PRN Reason: Nausea and Vomiting Last Admin: 05/18/25 05:50 Dose: 4 mg Pantoprazole Sodium (Pantoprazole Sodium 40 Mg/10 Ml Vial) 40 mg IVPUSH BID@0630,1630 [facility] Last Admin: 05/19/25 05:37 Dose: 40 mg Paroxetine HCl (Paroxetine Hcl 40 Mg Tablet) 40 mg PO BEDTIME [facility] Last Admin: 05/18/25 19:52 Dose: 40 mg Potassium Chloride (Potassium Chloride Er 20 Meq Tab.Er.Prt) 20 meq PO DAILY [facility] Last Admin: 05/19/25 08:30 Dose: 20 meq Prochlorperazine Edisylate (Prochlorperazine Edisylate 10 Mg/2 Ml Vial) 10 mg IVPUSH Q6H PRN PRN Reason: Nausea and Vomiting Last Admin: 05/18/25 09:56 Dose: 10 mg Sodium Chloride (0.9 % Sodium Chloride Flush 3 Ml Syringe) 3 ml IVFLUSH QSHIFT [facility] Last Admin: 05/19/25 08:38 Dose: 3 ml Vancomycin HCl (Vancomycin Hcl 125 Mg Capsule) 125 mg PO Q6H [facility] Last Admin: 05/19/25 15:12 Dose: 125 mg Home Medications ?Medication ?Instructions ?Recorded ?Confirmed ?Last Taken ?Type fluticasone propionate 50 1 spray intranasal DAILY PRN 08/08/20 05/17/25 09/12/24 History mcg/actuation nasal Allergic Symptoms spray,suspension albuterol sulfate 90 mcg/actuation 2 puff inhalation Q6H PRN 10/22/21 05/17/25 09/12/24 History aerosol inhaler (Ventolin HFA) Respiratory Distress acetaminophen 500 mg tablet 1,000 mg PO Q6H PRN Pain 07/24/22 05/17/25 Unknown History (Tylenol Extra Strength) omeprazole 40 mg capsule,delayed 40 mg PO DAILY 05/15/25 05/17/25 Unknown History release potassium chloride 20 mEq 20 meq PO DAILY 05/15/25 05/17/25 Unknown History tablet,extended release(part/cryst) buspirone 10 mg tablet 10 mg PO BID 05/17/25 05/17/25 Unknown History carvedilol 25 mg tablet 25 mg PO BID 05/17/25 05/17/25 Unknown History Physical Exam Exam: Exam: EXAM: GENERAL: The patient is well developed and nontoxic. VITAL SIGNS:see workflow HEENT: Nonicteric sclerae, PERRLA, EOMI. Oropharynx clear. Moist mucous membranes. Conjunctivae appear well perfused. No thyroid mass. CHEST: Chest wall is nontender. HEART: Regular rate and rhythm without murmurs. LUNGS: Clear to auscultation bilaterally. ABDOMEN: Soft, positive bowel sounds, nontender, no organomegaly.no flank tenderness SKIN: No rash, no excessive bruising, petechiae, or purpura. NEUROLOGIC: Cranial nerves II-XII intact without motor/sensory deficit. Psych: normal affect Vital Signs: Vital Signs: Last Vital Signs Temp 99.2 F 05/19/25 11:37 Pulse 58 05/19/25 11:37 Resp 18 05/19/25 11:37 BP 131/63 05/19/25 11:37 Pulse Ox 97 05/19/25 11:37 O2 Del Method Room Air 05/19/25 11:37 BMI result Body Mass Index 21.0 Results Labs 05/19/25 06:49 05/19/25 06:38 Labs: Short CBC 05/19/25 Range/Units 06:49 WBC 4.1 L (4.8-10.8) X10*3/uL Hgb 7.6 L (12.0-16.0) g/dl Hct 23.3 L D (37.0-47.0) % Plt Count 190 D (160-400) X10*3/uL BMP 05/19/25 06:38 Sodium 135 Potassium 2.7 L* Chloride 104 Carbon Dioxide 23 BUN 15 Creatinine 0.66 Calcium 7.7 L D Microbiology Microbiology Results: Microbiology 05/17/25 16:01 Blood - Venous Blood Culture - Preliminary No growth after 24 hours. 05/17/25 16:02 Blood - Venous Blood Culture - Preliminary No growth after 24 hours. Assessment and Plan (1) Proctocolitis: Status: Acute Plan 1/ C diff colitis with blood loss likely from combination of colitis and esophagitis, seems to have not gone the full recommended course of fluconazole for 3 weeks PLAN: /1 - 3 weeks of fluconazole 2/ vancomycin for c diff 3/ PPI BID e.g pantoprazole 40 mg ten can titrate down after 4 weeks 4/ If further overt bleeding and downtrending HGB then can reconsider EGD< colonoscopy for assessment, an onsider iron infusion as well Procedures Date of Service Date of Service: 05/19/25
--- NOTE | 2025-05-19 15:50 | HO.PM.IMPN ---
Subjective Subjective Date of Service: 05/19/25 Interval History: Pt reports overall feeling better though some continued abdominal pain and cramping Had a few episodes of diarrhea Has been tolerating clear liquid diet Denies GERD like symptoms No difficulty breathing or SOB Denies chest pain/pressure Review of Systems Review of Systems: Yes all other systems are reviewed and are negative Physical Exam Exam: Exam: General: AOx3, no acute distress Resp: CTA bilaterally CVS: S1, S2, RRR GI: +BS, no distention; mild diffuse abdominal tenderness, though relatively benign Skin: Warm, dry Neuro: Cranial nerves II-XII grossly intact bilaterally. Motor grossly intact bilaterally Extremities: No edema Psych: Appropriate affect Vital Signs: Vital Signs: Last Vital Signs Temp 98.9 F 05/19/25 15:30 Pulse 62 05/19/25 15:30 Resp 18 05/19/25 15:30 BP 133/59 L 05/19/25 15:30 Pulse Ox 96 05/19/25 15:30 O2 Del Method Room Air 05/19/25 15:30 BMI result Body Mass Index 21.0 Objective Data Active Medications Acetaminophen (Acetaminophen 325 Mg Tablet) 650 mg PO Q6H PRN PRN Reason: Pain, Mild 1-3,fever,headache Last Admin: 05/18/25 15:54 Dose: 650 mg Documented By: KATARINA Albuterol Sulfate (Albuterol Sulfate 90 Mcg 8 Gm Inhaler) 2 puff INHALE Q6H PRN PRN Reason: Respiratory Distress Amlodipine Besylate (Amlodipine Besylate 5 Mg Tablet) 5 mg PO DAILY [facility]; Protocol Last Admin: 05/19/25 08:31 Dose: 5 mg Documented By: TITUS Atorvastatin Calcium (Atorvastatin Calcium 40 Mg Tablet) 40 mg PO BEDTIME [facility] Last Admin: 05/18/25 19:53 Dose: 40 mg Documented By: KATARINA Buspirone HCl (Buspirone Hcl 10 Mg Tablet) 10 mg PO BID [facility] Last Admin: 05/19/25 08:31 Dose: 10 mg Documented By: TITUS Calcium Carbonate (Calcium Carbonate 750 Mg Tab.Chew) 750 mg PO Q4H PRN PRN Reason: Heartburn Carvedilol (Carvedilol 25 Mg Tablet) 25 mg PO BID [facility]; Protocol Last Admin: 05/19/25 08:31 Dose: 25 mg Documented By: TITUS Dicyclomine HCl (Dicyclomine Hcl 10 Mg Capsule) 20 mg PO TID [facility] Last Admin: 05/19/25 15:11 Dose: 20 mg Documented By: TITUS Fluticasone Propionate (Fluticasone Propionate Nasal 16 Gm [place]) 1 spray NOSTRIL-B DAILY PRN PRN Reason: Allergic Symptoms Lactated Ringer's (Lr) 1,000 mls @ 100 mls/hr IVCONT .Q10H [facility] Last Admin: 05/19/25 12:51 Dose: 100 mls/hr Documented By: TITUS Piperacillin Sod/Tazobactam (Sod 2.25 gm/ Sodium Chloride) 50 mls @ 100 mls/hr IV Q6H [facility] Last Infusion: 05/19/25 13:15 Dose: Infused Documented By: TITUS Lorazepam (Lorazepam 0.5 Mg Tablet) 0.5 mg PO BID PRN PRN Reason: Anxiety Last Admin: 05/18/25 19:52 Dose: 0.5 mg Documented By: KATARINA Magnesium Hydroxide (Milk Of Magnesia 30 Ml Oral.Susp) 30 ml PO DAILY PRN PRN Reason: Constipation Melatonin (Melatonin 3 Mg Tablet) 6 mg PO BEDTIME PRN PRN Reason: Insomnia Morphine Sulfate (Morphine Sulfate 4 Mg/Ml Cartridge) 4 mg IVPUSH Q4H PRN; Protocol PRN Reason: Pain, Severe (Pain Scale 7-10) Ondansetron HCl (Ondansetron Hcl 4 Mg/2 Ml Vial) 4 mg IVPUSH Q8H PRN PRN Reason: Nausea and Vomiting Last Admin: 05/18/25 05:50 Dose: 4 mg Documented By: ANTBEN Pantoprazole Sodium (Pantoprazole Sodium 40 Mg/10 Ml Vial) 40 mg IVPUSH BID@0630,1630 [facility] Last Admin: 05/19/25 05:37 Dose: 40 mg Documented By: ANTOIC Paroxetine HCl (Paroxetine Hcl 40 Mg Tablet) 40 mg PO BEDTIME [facility] Last Admin: 05/18/25 19:52 Dose: 40 mg Documented By: KATARINA Potassium Chloride (Potassium Chloride Er 20 Meq Tab.Er.Prt) 20 meq PO DAILY [facility] Last Admin: 05/19/25 08:30 Dose: 20 meq Documented By: TITUS Prochlorperazine Edisylate (Prochlorperazine Edisylate 10 Mg/2 Ml Vial) 10 mg IVPUSH Q6H PRN PRN Reason: Nausea and Vomiting Last Admin: 05/18/25 09:56 Dose: 10 mg Documented By: RICCIAV Sodium Chloride (0.9 % Sodium Chloride Flush 3 Ml Syringe) 3 ml IVFLUSH QSHIFT [facility] Last Admin: 05/19/25 08:38 Dose: 3 ml Documented By: TITUS Vancomycin HCl (Vancomycin Hcl 125 Mg Capsule) 125 mg PO Q6H [facility] Last Admin: 05/19/25 15:12 Dose: 125 mg Documented By: TITUS Labs 05/19/25 06:49 05/19/25 06:38 Labs: Laboratory Results - last 24 hr 05/19/25 05/19/25 05/19/25 06:38 06:49 09:47 MCV 75.9 L MCH 24.8 L MCHC 32.6 RDW 19.9 H Plt Count 190 D MPV 9.2 L Absolute Nucleated RBC 0.000 Nucleated RBC % (auto) 0.0 Anion Gap 11 L Estim Creat Clear Calc 52.9 Estimated GFR > 60 Random Glucose 72 Calcium 7.7 L D Stl C. cayetanensis PCR Not Detected Stool Rotavirus A PCR Not Detected Stl Adenov F 40/41 PCR Not Detected Stool Astrovirus (PCR) Not Detected Stool Campylobacter PCR Not Detected Stool Cryptosporidium PCR Not Detected Stl Sh Tox Pr E STEC PCR Not Detected Stool E coli O157 PCR Not applicable Stl Enterotoxigenic E PCR Not Detected Stool EPEC (PCR) Not Detected Stool EAEC (PCR) Not Detected Stl E. histolytica PCR Not Detected Stool Giardia Lamblia PCR Not Detected Stl P. shigelloides PCR Not Detected Stool Salmonella PCR Not Detected Stool Sapovirus (PCR) Not Detected Stl Shigella/EIEC PCR Not Detected St Y.enterocolitica PCR Not Detected Stool Vibrio (PCR) Not Detected Stl Vibrio cholerae PCR Not Detected Stl Norovirus GI/GII PCR Not Detected C. difficile Tox B Gene POSITIVE A* C. difficile Toxin A&B Negative C. difficile Interpret SEE NOTE Microbiology Microbiology Results: Microbiology 05/17/25 16:01 Blood Culture - Preliminary Blood - Venous No growth after 24 hours. 05/17/25 16:02 Blood Culture - Preliminary Blood - Venous No growth after 24 hours. Assessment and Plan (1) Clostridium difficile colitis: Status: Acute Plan Pt is a 74-year-old female with a PMH significant for mild intermittent?asthma, HLD, HTN, cutaneous lupus, TIA, vertigo, GERD, recurrent colitis, and anxiety who presents to the ED with?generalized weakness and fall at home x3 earlier today. Pt is admitted to the hospital for treatment and further evaluation of proctocolitis that now meets sepsis criteria and has failed outpatient therapy, as well as CHARLENE and electrolyte abnormalities. Acute C-Diff colitis with sepsis Pt with lower abdominal pain, N/V/D; CT from 05/12 showing acute uncomplicated proctocolitis Pt has been on levofloxacin and Flagyl p.o. with worsening symptoms Repeat CT of abd/pelvis reassuring Tested positive for C-Diff gene today, though toxin negative Will d/c Zosyn, start vancomycin 125 mg q.6 H, day 1 Antiemetics, and analgesics Pt currently tolerating clear diet, advance as tolerated Hypokalemia Potassium improved but continues to be low: 2.3-->2.8-->2.7 Secondary to reduced p.o. intake and GI losses from nausea, vomiting, and diarrhea Supplemented 40 mEq IV in the ED and additional 40mEq IV on the floor Will give additional 40 mEq IV Follow potassium Monitor on telemetry Hematemesis Pt reports both bright red blood and coffee-ground emesis Initial H&H slightly improved from prior, though possibly hemoconcentrated due to dehydration Drop in H&H the past two days: 11.9-->9.5-->7.6 Continue Protonix IV bid GI consult Monitor H&H Recent candidiasis EGD on 04/27/2025 with findings consistent with Lindsay esophagitis Review of records indicates pt did not receive full treatment of fluconazole: started 05/02 for 10 days We will give fluconazole 200 mg today, fluconazole 100 mg daily x3 weeks CHARLENE, resolved Creatinine improved and back to baseline: 1.27-->0.77 Secondary to hypovolemia from reduced p.o. intake and GI losses from nausea, vomiting, diarrhea Elevated troponins Initial troponin 63.8 with repeats flat at 60.2 and 44.5 Pt asymptomatic, EKG without significant ischemic changes Likely type 2 in the setting of increased demand Monitor on telemetry Starvation ketoacidosis, resolved Beta hydroxybutyrate elevated 3.42, elevated lactic acid, anion gap 22 In the setting of above Anion gap now closed at 15 Asthma Not in acute exacerbation Continue home inhalers HTN Continue amlodipine, carvedilol Anxiety Continue buspirone Full Code Attending:?Dr. Reynolds DVT Prophylaxis: Pneumatic compression due to question of hematemesis Pt will require continued hospitalization for continued treatment of c-diff colitis with IV Protonix, IV potassium supplementation, and close monitoring of labs. Quality Stroke Does the patient have a stroke diagnosis?: No VTE Prior VTE?: No VTE Risk Level:: Medical - moderate - high VTE Device Contraindication: N/A - Device Ordered VTE Drug Contraindication: Treatment Not Indicated
[2025-05-19] MEDS: PARoxetine HCL 40 MG TABLET PO (20:04)
[2025-05-20] VITALS (7 sets, daily range): BP systolic 115–153; BP diastolic 55–84; PULSE 62–74; RESP 12–18; TEMP 36.2–37.2; O2SAT 94–97
[2025-05-20] MEDS: Lactated Ringers 1,000 ML 100 ML IVCONT (06:30)
[2025-05-20 07:24] LABS: Hematocrit 22.4 % (37.0-47.0); Hemoglobin 7.5 g/dl (12.0-16.0); Mean Corpuscular HGB Conc 33.5 g/dl (31.0-35.0); Mean Corpuscular Hemoglobin 25.2 pg (27.0-33.0); Mean Corpuscular Volume 75.2 fL (80.0-98.0); NRBC Abs Auto 0.000 X10*3/uL (0.0-0.012); NRBC Pct Auto 0.0 /100WBC (0.0-0.2); Platelet Count 173 X10*3/uL (160-400); Red Blood Count 2.98 X10*6/uL (4.20-5.50); White Blood Count 4.0 X10*3/uL (4.8-10.8)
[2025-05-20 07:42] LABS: Anion Gap 13 (12-20); Blood Urea Nitrogen 5 mg/dL (9-16); Calcium 7.8 mg/dL (8.4-10.2); Carbon Dioxide 25 mmol/L (22-29); Chloride 102 mmol/L (96-108); Creatinine Clr Calc Pharmacy 63.4; Estimated Glomerular Filt Rate > 60; Potassium 2.8 mmol/L (3.3-5.1); Sodium 137 mmol/L (135-145)
[2025-05-20 08:02] LABS: Iron 13 mcg/dL (30-160); Magnesium 1.6 mg/dL (1.6-2.6); Percent Iron Saturation 5 % (15-50); Total Iron Binding Capacity 252 mcg/dL (228-428); Unsaturated Iron Binding 239 ug/dL
[2025-05-20] MEDS: Potassium Chloride ER 20 MEQ TAB.ER.PRT 40 MEQ PO ×2 (08:35→21:31)
--- NOTE | 2025-05-20 10:34 | HO.PM.IMPN ---
Subjective Subjective Date of Service: 05/20/25 Interval History: Follow up proctitis and cdiff no diarrhea this morning no pain advanced diet to regular Review of Systems Review of Systems: Yes all other systems are reviewed and are negative Physical Exam Exam: Exam: Appearing in no acute distress lung sounds are clear to auscultation heart regular rate rhythm, clear S1, S2 positive bowel sounds, abdomen is soft, nontender neuro patient is alert x3, no focal deficits Vital Signs: Vital Signs: Last Vital Signs Temp 98.4 F 05/20/25 08:15 Pulse 67 05/20/25 08:15 Resp 18 05/20/25 08:15 BP 153/67 H 05/20/25 08:15 Pulse Ox 96 05/20/25 08:15 O2 Del Method Room Air 05/20/25 08:15 BMI result Body Mass Index 21.0 Objective Data Active Medications Acetaminophen (Acetaminophen 325 Mg Tablet) 650 mg PO Q6H PRN PRN Reason: Pain, Mild 1-3,fever,headache Last Admin: 05/18/25 15:54 Dose: 650 mg Documented By: KATARINA Albuterol Sulfate (Albuterol Sulfate 90 Mcg 8 Gm Inhaler) 2 puff INHALE Q6H PRN PRN Reason: Respiratory Distress Amlodipine Besylate (Amlodipine Besylate 5 Mg Tablet) 5 mg PO DAILY [facility]; Protocol Last Admin: 05/20/25 08:35 Dose: 5 mg Documented By: LEANNE Atorvastatin Calcium (Atorvastatin Calcium 40 Mg Tablet) 40 mg PO BEDTIME [facility] Last Admin: 05/19/25 20:04 Dose: 40 mg Documented By: LIAN Buspirone HCl (Buspirone Hcl 10 Mg Tablet) 10 mg PO BID [facility] Last Admin: 05/20/25 08:35 Dose: 10 mg Documented By: LEANNE Calcium Carbonate (Calcium Carbonate 750 Mg Tab.Chew) 750 mg PO Q4H PRN PRN Reason: Heartburn Carvedilol (Carvedilol 25 Mg Tablet) 25 mg PO BID [facility]; Protocol Last Admin: 05/20/25 08:35 Dose: 25 mg Documented By: LEANNE Dicyclomine HCl (Dicyclomine Hcl 10 Mg Capsule) 20 mg PO TID [facility] Last Admin: 05/19/25 20:04 Dose: 20 mg Documented By: LIAN Fluconazole (Fluconazole 100 Mg Tablet) 100 mg PO DAILY [facility] Last Admin: 05/20/25 08:35 Dose: 100 mg Documented By: LEANNE Fluticasone Propionate (Fluticasone Propionate Nasal 16 Gm [place]) 1 spray NOSTRIL-B DAILY PRN PRN Reason: Allergic Symptoms Lorazepam (Lorazepam 0.5 Mg Tablet) 0.5 mg PO BID PRN PRN Reason: Anxiety Last Admin: 05/18/25 19:52 Dose: 0.5 mg Documented By: KATARINA Magnesium Hydroxide (Milk Of Magnesia 30 Ml Oral.Susp) 30 ml PO DAILY PRN PRN Reason: Constipation Melatonin (Melatonin 3 Mg Tablet) 6 mg PO BEDTIME PRN PRN Reason: Insomnia Morphine Sulfate (Morphine Sulfate 4 Mg/Ml Cartridge) 4 mg IVPUSH Q4H PRN; Protocol PRN Reason: Pain, Severe (Pain Scale 7-10) Ondansetron HCl (Ondansetron Hcl 4 Mg/2 Ml Vial) 4 mg IVPUSH Q8H PRN PRN Reason: Nausea and Vomiting Last Admin: 05/18/25 05:50 Dose: 4 mg Documented By: ANTOIC Pantoprazole Sodium (Pantoprazole Sodium 40 Mg/10 Ml Vial) 40 mg IVPUSH BID@0630,1630 [facility] Last Admin: 05/20/25 06:30 Dose: 40 mg Documented By: LIAN Paroxetine HCl (Paroxetine Hcl 40 Mg Tablet) 40 mg PO BEDTIME [facility] Last Admin: 05/19/25 20:04 Dose: 40 mg Documented By: LIAN Potassium Chloride (Potassium Chloride Er 20 Meq Tab.Er.Prt) 40 meq PO BID [facility] Last Admin: 05/20/25 08:35 Dose: 40 meq Documented By: LEANNE Prochlorperazine Edisylate (Prochlorperazine Edisylate 10 Mg/2 Ml Vial) 10 mg IVPUSH Q6H PRN PRN Reason: Nausea and Vomiting Last Admin: 05/18/25 09:56 Dose: 10 mg Documented By: RICCIAV Sodium Chloride (0.9 % Sodium Chloride Flush 3 Ml Syringe) 3 ml IVFLUSH QSHIFT [facility] Last Admin: 05/20/25 08:41 Dose: Not Given Documented By: LEANNE Non-Admin Reason: Previously Administered Vancomycin HCl (Vancomycin Hcl 125 Mg Capsule) 125 mg PO Q6H [place] Last Admin: 05/20/25 08:35 Dose: 125 mg Documented By: LEANNE Labs 05/20/25 07:10 05/20/25 07:10 Labs: Laboratory Results - last 24 hr 05/19/25 05/20/25 09:47 07:10 MCV 75.2 L MCH 25.2 L MCHC 33.5 RDW 20.2 H Plt Count 173 MPV 8.8 L Absolute Nucleated RBC 0.000 Nucleated RBC % (auto) 0.0 Anion Gap 13 Estim Creat Clear Calc 63.4 Estimated GFR > 60 Random Glucose 86 Calcium 7.8 L Magnesium 1.6 Iron 13 L TIBC 252 % Saturation 5 L Unsat Iron Binding 239 Stl C. cayetanensis PCR Not Detected Stool Rotavirus A PCR Not Detected Stl Adenov F 40/41 PCR Not Detected Stool Astrovirus (PCR) Not Detected Stool Campylobacter PCR Not Detected Stool Cryptosporidium PCR Not Detected Stl Sh Tox Pr E STEC PCR Not Detected Stool E coli O157 PCR Not applicable Stl Enterotoxigenic E PCR Not Detected Stool EPEC (PCR) Not Detected Stool EAEC (PCR) Not Detected Stl E. histolytica PCR Not Detected Stool Giardia Lamblia PCR Not Detected Stl P. shigelloides PCR Not Detected Stool Salmonella PCR Not Detected Stool Sapovirus (PCR) Not Detected Stl Shigella/EIEC PCR Not Detected St Y.enterocolitica PCR Not Detected Stool Vibrio (PCR) Not Detected Stl Vibrio cholerae PCR Not Detected Stl Norovirus GI/GII PCR Not Detected C. difficile Tox B Gene POSITIVE A* C. difficile Toxin A&B Negative C. difficile Interpret SEE NOTE Microbiology Microbiology Results: Microbiology 05/17/25 16:01 Blood Culture - Preliminary Blood - Venous No growth after 48 hours. 05/17/25 16:02 Blood Culture - Preliminary Blood - Venous No growth after 48 hours. Assessment and Plan (1) Clostridium difficile colitis: Status: Acute Plan 74-year-old female with a PMH significant for mild intermittent?asthma, HLD, HTN, cutaneous lupus, TIA, vertigo, GERD, recurrent colitis, and anxiety who presented to the ED with?generalized weakness and fall at home x3. Pt is admitted to the hospital for treatment and further evaluation of proctocolitis that now meets sepsis criteria and has failed outpatient therapy, as well as CHARLENE and electrolyte abnormalities. Iron-deficiency Anemia, non blood loss Iron 13 IV iron infusion x2 days Acute C-Diff colitis with sepsis lower abdominal pain, N/V/D; CT from 05/12 showing acute uncomplicated proctocolitis o/p levofloxacin and Flagyl p.o. with worsening symptoms d/c Zosyn, start vancomycin 125 mg q.6 H Antiemetics, and analgesics Advanced to regular diet Hypokalemia Secondary to reduced p.o. intake and GI losses from nausea, vomiting, and diarrhea IV and oral potassium Hematemesis Pt reports both bright red blood and coffee ground emesis Initial H&H slightly improved from prior, though possibly hemoconcentrated due to dehydration Protonix IV bid GI consult Recent candidiasis EGD on 04/27/2025 with findings consistent with Lindsay esophagitis Review of records indicates pt did not receive full treatment of fluconazole: started 05/02 for 10 days fluconazole 200 mg today, fluconazole 100 mg daily x3 weeks CHARLENE, resolved Creatinine improved and back to baseline Secondary to hypovolemia from reduced p.o. intake and GI losses from nausea, vomiting, diarrhea Elevated troponins Initial troponin 63.8 with repeats flat at 60.2 and 44.5 Pt asymptomatic, EKG without significant ischemic changes Likely type 2 in the setting of increased demand Monitor on telemetry Starvation ketoacidosis, resolved Beta hydroxybutyrate elevated 3.42, elevated lactic acid, anion gap 22 In the setting of above Anion gap now closed at 15 Asthma Not in acute exacerbation Continue home inhalers HTN Continue amlodipine, carvedilol Anxiety Continue buspirone Full Code DVT Prophylaxis: Pneumatic compression due to question of hematemesis Quality Stroke Does the patient have a stroke diagnosis?: No VTE Prior VTE?: No VTE Risk Level:: Medical - moderate - high VTE Device Contraindication: N/A - Device Ordered VTE Drug Contraindication: Treatment Not Indicated
[2025-05-20] MEDS: 0.9 % Sodium Chloride Flush 3 ML SYRINGE IVFLUSH (16:57)
[2025-05-20] MEDS: PARoxetine HCL 40 MG TABLET PO (21:31)
[2025-05-21] VITALS (9 sets, daily range): BP systolic 115–166; BP diastolic 61–85; PULSE 62–80; RESP 16–18; TEMP 36.2–36.9; O2SAT 95–98
[2025-05-21 06:33] LABS: Anion Gap 13 (12-20); Blood Urea Nitrogen 6 mg/dL (9-16); Calcium 8.2 mg/dL (8.4-10.2); Carbon Dioxide 25 mmol/L (22-29); Chloride 106 mmol/L (96-108); Creatinine Clr Calc Pharmacy 55.4; Estimated Glomerular Filt Rate > 60; Potassium 3.5 mmol/L (3.3-5.1); Sodium 140 mmol/L (135-145)
[2025-05-21 08:10] LABS: Hematocrit 24.7 % (37.0-47.0); Hemoglobin 7.9 g/dl (12.0-16.0)
[2025-05-21] MEDS: Potassium Chloride ER 20 MEQ TAB.ER.PRT 40 MEQ PO ×2 (08:55→21:42)
--- NOTE | 2025-05-21 09:34 | P.PNIM_ITS ---
Subjective Subjective Date of Service: 05/21/25 Interval History: Follow up proctitis and cdiff no diarrhea this morning no pain Review of Systems Review of Systems: Yes all other systems are reviewed and are negative Physical Exam 2 Exam: Exam: Appearing in no acute distress lung sounds are clear to auscultation heart regular rate rhythm, clear S1, S2 positive bowel sounds, abdomen is soft, nontender neuro patient is alert x3, no focal deficits Vital Signs: Vital Signs: Last Vital Signs Temp 97.8 F 05/21/25 07:59 Pulse 62 05/21/25 07:59 Resp 16 05/21/25 07:59 BP 138/65 05/21/25 07:59 Pulse Ox 96 05/21/25 07:59 O2 Del Method Room Air 05/21/25 07:59 BMI result Body Mass Index 21.0 Objective Data Active Medications Acetaminophen (Acetaminophen 325 Mg Tablet) 650 mg PO Q6H PRN PRN Reason: Pain, Mild 1-3,fever,headache Last Admin: 05/18/25 15:54 Dose: 650 mg Documented By: KATARINA Albuterol Sulfate (Albuterol Sulfate 90 Mcg 8 Gm Inhaler) 2 puff INHALE Q6H PRN PRN Reason: Respiratory Distress Amlodipine Besylate (Amlodipine Besylate 5 Mg Tablet) 5 mg PO DAILY COUNTS INCLUDE 234 BEDS AT THE [facility]; Protocol Last Admin: 05/21/25 08:55 Dose: 5 mg Documented By: LEANNE Atorvastatin Calcium (Atorvastatin Calcium 40 Mg Tablet) 40 mg PO BEDTIME COUNTS INCLUDE 234 BEDS AT THE [facility] Last Admin: 05/20/25 21:31 Dose: 40 mg Documented By: VELIA Buspirone HCl (Buspirone Hcl 10 Mg Tablet) 10 mg PO BID COUNTS INCLUDE 234 BEDS AT THE [facility] Last Admin: 05/21/25 09:09 Dose: 10 mg Documented By: LEANNE Calcium Carbonate (Calcium Carbonate 750 Mg Tab.Chew) 750 mg PO Q4H PRN PRN Reason: Heartburn Carvedilol (Carvedilol 25 Mg Tablet) 25 mg PO BID COUNTS INCLUDE 234 BEDS AT THE [facility]; Protocol Last Admin: 05/21/25 08:55 Dose: 25 mg Documented By: LEANNE Dicyclomine HCl (Dicyclomine Hcl 10 Mg Capsule) 20 mg PO TID COUNTS INCLUDE 234 BEDS AT THE [facility] Last Admin: 05/21/25 08:55 Dose: 20 mg Documented By: LEANNE Fluconazole (Fluconazole 100 Mg Tablet) 100 mg PO DAILY COUNTS INCLUDE 234 BEDS AT THE [facility] Last Admin: 05/21/25 08:55 Dose: 100 mg Documented By: LEANNE Fluticasone Propionate (Fluticasone Propionate Nasal 16 Gm [place]) 1 spray NOSTRIL-B DAILY PRN PRN Reason: Allergic Symptoms Iron Sucrose 100 mg/ Sodium (Chloride) 55 mls @ 220 mls/hr IV DAILY COUNTS INCLUDE 234 BEDS AT THE [facility] Stop: 05/22/25 10:33 Last Admin: 05/21/25 09:26 Dose: 220 mls/hr Documented By: LEANNE Lorazepam (Lorazepam 0.5 Mg Tablet) 0.5 mg PO BID PRN PRN Reason: Anxiety Last Admin: 05/18/25 19:52 Dose: 0.5 mg Documented By: KATARINA Magnesium Hydroxide (Milk Of Magnesia 30 Ml Oral.Susp) 30 ml PO DAILY PRN PRN Reason: Constipation Melatonin (Melatonin 3 Mg Tablet) 6 mg PO BEDTIME PRN PRN Reason: Insomnia Morphine Sulfate (Morphine Sulfate 4 Mg/Ml Cartridge) 4 mg IVPUSH Q4H PRN; Protocol PRN Reason: Pain, Severe (Pain Scale 7-10) Ondansetron HCl (Ondansetron Hcl 4 Mg/2 Ml Vial) 4 mg IVPUSH Q8H PRN PRN Reason: Nausea and Vomiting Last Admin: 05/18/25 05:50 Dose: 4 mg Documented By: KAMAR Pantoprazole Sodium (Pantoprazole Sodium 40 Mg/10 Ml Vial) 40 mg IVPUSH BID@0630,1630 COUNTS INCLUDE 234 BEDS AT THE [facility] Last Admin: 05/21/25 06:03 Dose: 40 mg Documented By: VELIA Paroxetine HCl (Paroxetine Hcl 40 Mg Tablet) 40 mg PO BEDTIME COUNTS INCLUDE 234 BEDS AT THE [facility] Last Admin: 05/20/25 21:31 Dose: 40 mg Documented By: VELIA Potassium Chloride (Potassium Chloride Er 20 Meq Tab.Er.Prt) 40 meq PO BID COUNTS INCLUDE 234 BEDS AT THE [facility] Last Admin: 05/21/25 08:55 Dose: 40 meq Documented By: LEANNE Prochlorperazine Edisylate (Prochlorperazine Edisylate 10 Mg/2 Ml Vial) 10 mg IVPUSH Q6H PRN PRN Reason: Nausea and Vomiting Last Admin: 05/18/25 09:56 Dose: 10 mg Documented By: ESPERANZA Sodium Chloride (0.9 % Sodium Chloride Flush 3 Ml Syringe) 3 ml IVFLUSH QSHIFT COUNTS INCLUDE 234 BEDS AT THE [facility] Last Admin: 05/21/25 08:55 Dose: Not Given Documented By: LEANNE Non-Admin Reason: Previously Administered Vancomycin HCl (Vancomycin Hcl 125 Mg Capsule) 125 mg PO Q6H COUNTS INCLUDE 234 BEDS AT THE [facility] Last Admin: 05/21/25 08:55 Dose: 125 mg Documented By: LEANNE Labs 05/21/25 07:53 05/21/25 06:00 Labs: Laboratory Results - last 24 hr 05/21/25 06:00 Anion Gap 13 Estim Creat Clear Calc 55.4 Estimated GFR > 60 Random Glucose 123 H Calcium 8.2 L Assessment and Plan (1) Clostridium difficile colitis: Status: Acute Plan 74-year-old female with a PMH significant for mild intermittent?asthma, HLD, HTN, cutaneous lupus, TIA, vertigo, GERD, recurrent colitis, and anxiety who presented to the ED with?generalized weakness and fall at home x3. Pt is admitted to the hospital for treatment and further evaluation of proctocolitis that now meets sepsis criteria and has failed outpatient therapy, as well as CHARLENE and electrolyte abnormalities. Iron-deficiency Anemia, non blood loss Iron 13 IV iron infusion x2 days HH still low, tx 1 unit PRBC Acute C-Diff colitis with sepsis lower abdominal pain, N/V/D; CT from 05/12 showing acute uncomplicated proctocolitis o/p levofloxacin and Flagyl p.o. with worsening symptoms d/c Zosyn, start vancomycin 125 mg q.6 H Antiemetics, and analgesics Advanced to regular diet Hypokalemia. Resolved Secondary to reduced p.o. intake and GI losses from nausea, vomiting, and diarrhea IV and oral potassium Hematemesis Pt reports both bright red blood and coffee ground emesis Initial H&H slightly improved from prior, though possibly hemoconcentrated due to dehydration Protonix IV bid GI consult> no EGD at this time Recent candidiasis EGD on 04/27/2025 with findings consistent with Lindsay esophagitis Review of records indicates pt did not receive full treatment of fluconazole: started 05/02 for 10 days fluconazole 200 mg today, fluconazole 100 mg daily x3 weeks CHARLENE, resolved Creatinine improved and back to baseline Secondary to hypovolemia from reduced p.o. intake and GI losses from nausea, vomiting, diarrhea Elevated troponins Initial troponin 63.8 with repeats flat at 60.2 and 44.5 Pt asymptomatic, EKG without significant ischemic changes Likely type 2 in the setting of increased demand Monitor on telemetry Starvation ketoacidosis, resolved Beta hydroxybutyrate elevated 3.42, elevated lactic acid, anion gap 22 In the setting of above Anion gap now closed at 15 Asthma Not in acute exacerbation Continue home inhalers HTN Continue amlodipine, carvedilol Anxiety Continue buspirone Full Code DVT Prophylaxis: Pneumatic compression due to question of hematemesis Quality Stroke Does the patient have a stroke diagnosis?: No VTE Prior VTE?: No VTE Risk Level:: Medical - moderate - high VTE Device Contraindication: N/A - Device Ordered VTE Drug Contraindication: Treatment Not Indicated
--- NOTE | 2025-05-21 10:27 | PC.NURSE ---
Attempted to place second IV for Blood, unable to. Primary RN notified. Will attempt US IV from [facility] Later today.
[2025-05-21] MEDS: 0.9 % Sodium Chloride Flush 3 ML SYRINGE IVFLUSH ×2 (16:36→21:45)
--- NOTE | 2025-05-21 17:00 | PC.NURSE ---
Patient resting comfortably in bed. Denies pain, nausea, or discomfort. Has been active and moving around. Post blood transfusion BP elevated at 158/84. All other vital signs WNL and stable. [employer] Yudy Nicole notified. No new orders at this time.
[2025-05-21] MEDS: PARoxetine HCL 40 MG TABLET PO (21:42)
[2025-05-22 04:00] VITALS: BP 140/70; PULSE 67; RESP 18; TEMP 36.2; O2SAT 96
[2025-05-22 07:07] LABS: Hematocrit 33.1 % (37.0-47.0); Hemoglobin 10.8 g/dl (12.0-16.0); Mean Corpuscular HGB Conc 32.6 g/dl (31.0-35.0); Mean Corpuscular Hemoglobin 26.3 pg (27.0-33.0); Mean Corpuscular Volume 80.7 fL (80.0-98.0); NRBC Abs Auto 0.000 X10*3/uL (0.0-0.012); NRBC Pct Auto 0.0 /100WBC (0.0-0.2); Platelet Count 213 X10*3/uL (160-400); Red Blood Count 4.10 X10*6/uL (4.20-5.50); White Blood Count 5.7 X10*3/uL (4.8-10.8)
[2025-05-22 07:56] VITALS: BP 136/64; PULSE 63; RESP 18; TEMP 36.3; O2SAT 98
--- NOTE | 2025-05-22 08:33 | W.MHC.F2F ---
Service Date Service Date: 05/22/25 Encounter Date of encounter: 05/22/25 Reasons for Services Signs and symptoms assessed: C diff colitis Iron-deficiency anemia Reason for physical therapy: home safety and mobility and therapeutic exercises Homebound: Leaving the home is medically contraindicated at this time without the asist of a device and/or another person due th the listed conditions above and below. Reason homebound: weakness related to hospital stay Certification: Based on the above findings, I certify that this patient is confined to the home and needs intermittent assisted care, physical therapy and/or speech therapy, or continues to need occupational therapy. The patient is under my care, and I have initiated the establishment of the plan of care. The patient will be followed by a physician who will periodically review the plan of care. Time Spent With Patient Time: Total time managing care of this patient today ____ minutes.
--- NOTE | 2025-05-22 08:34 | PM.DS ---
DS: Providers Provider Date of Service: 05/22/25 Date of admission: 05/17/25 17:51 Date of discharge: 05/22/25 Primary care physician: Arnulfo Villalba MD Consults: 05/19/25 08:15 Consult to Gastroenterology Routine Consulting Provider: Candido Elias Reason for consultation: Proctocolitis, reported hematemesis/coffee-ground; drop in H&H DS: Diagnosis Discharge Diagnosis (1) Clostridium difficile colitis: Status: Acute DS: Summary Hospital Course Hospital Course: History and physical as per admitting provider. Pt is a 74-year-old female with a PMH significant for mild intermittent?asthma, HLD, HTN, cutaneous lupus, TIA, vertigo, GERD, recurrent colitis, and anxiety who presents to the ED with?generalized weakness and fall at home x3 earlier today. Pt previously presented to the ED on 05/12/2025 with lower abdominal pain radiating to back, nausea, vomiting, and diarrhea. CT of abdomen and pelvis showed multifocal proctocolitis and pt was discharged home on levofloxacin, metronidazole, and oxycodone. Pt re-presented to the ED the after 2 days as she felt the antibiotics were ?too strong? and made her feel like she was out of her body. Metronidazole dosing was halved to 250 mg and pt discharged back home. Pt reports symptoms have not resolved, and continues to experience lower abdominal pain, diarrhea, nausea, and vomiting with both right but blood and dark coffee-ground emesis. Has been unable to tolerate anything by mouth. This morning felt so weak her legs gave out and slumped to the ground 3 times when using her walker. Denies lightheadedness or dizziness. No head strike, loss of consciousness, or any significant musculoskeletal pain. Denies shortness or breath or difficulty breathing. No chest pain/pressure, palpitations. In the ED pt was tachycardic up to 105 and tachypneic up to 23. Labs were significant for leukocytosis of 12.8, potassium 2.3, anion gap 22, BUN 28, creatinine 1.27, lactic acid 3.8, troponin 63.8, and beta hydroxybutyrate 3.42. Stool negative for occult blood. CT?of abdomen/pelvis from 05/12 showed multifocal proctocolitis without perforation or obstruction. EKG demonstrated sinus tachycardia with PACs but no evidence of significant ST elevations or depressions. Pt was treated in the ED with IVF, Protonix, ondansetron, fentanyl, potassium chloride 40 mEq IV, and Zosyn. Pt is admitted to the hospital for treatment and further evaluation of proctocolitis that now meets sepsis criteria and has failed outpatient therapy, as well as CHARLENE and electrolyte abnormalities. 74-year-old woman treated for acute C diff colitis, has been on Levaquin and Flagyl but started on broad-spectrum antibiotics with Zosyn, IV fluids, bowel rest, antiemetics and analgesics. C diff was positive and patient transitioned to oral vancomycin. Less diarrhea at this time, no abdominal pain, diet advanced. Plan will be to complete course of oral vancomycin at home. Hypokalemia. Treated with IV and oral, secondary to GI losses. Resolved. CHARLENE. Secondary to hypovolemia and GI losses. Treated with IV fluids. Resolved Elevated troponins. Initially high but flat, no significant ischemic EKG changes noted, no further workup. Starvation ketoacidosis. Elevated beta hydroxybutyrate, lactic acid and anion gap. With IV fluids and nutrition. Resolved Hematemesis with iron-deficiency anemia. Patient had reported both bright red blood and coffee-ground emesis. She was treated with IV PPI per. Seen and evaluated by Gastroenterology who recommended continuing the PPI and infusing iron as her iron was only 13. She did receive 2 total IV doses and we will be sent home with oral iron. H&H has now stabilized 10.8/33.1. Candidiasis. Recent diagnosis. Treated for 10 days but continued to have symptoms. Plan will be to continue treatment for 2 more weeks. Asthma. No exacerbation. Continue home inhalers Hypertension. Continue amlodipine and carvedilol Anxiety. Continue buspirone Time Attestation Discharge Coordination Time (in mins): 45 Quality: Safe Use of Opioids Does Pt have an Active Cancer Diagnosis on the Problem List?: No Quality: Stroke Does the patient have a stroke diagnosis?: No Physical Exam Exam: Exam: Appearing in no acute distress head is normocephalic atraumatic eyes pupils are PERRLA sclera is anicteric mouth throat mucous membranes are intact and moist neck is supple no lymphadenopathy, no JVD noted lung sounds are clear to auscultation heart regular rate rhythm, clear S1, S2 positive bowel sounds, abdomen is soft, nontender neuro patient is alert x3, no focal deficits Vital Signs: Vital Signs: Last Vital Signs Temp 97.3 F 05/22/25 07:56 Pulse 63 05/22/25 07:56 Resp 18 05/22/25 07:56 BP 136/64 05/22/25 07:56 Pulse Ox 98 05/22/25 07:56 O2 Del Method Room Air 05/22/25 07:56 BMI result Body Mass Index 21.0 DS: Data Data Completed and Pending Completed studies during hospitalization [Text1]: Procedures Inspection of Upper Intestinal Tract, Via Natural or Artificial Opening Endoscopic (04/04/23) Release Peritoneum, Percutaneous Endoscopic Approach (09/13/24) Repair Diaphragm, Percutaneous Endoscopic Approach (09/13/24) Transfusion of Nonautologous Red Blood Cells into Peripheral Vein, Percutaneous Approach (04/04/23) Labs on day of discharge: Laboratory Results - last 24 hr 05/21/25 05/22/25 09:47 06:24 WBC 5.7 RBC 4.10 L D Hgb 10.8 L D Hct 33.1 L D MCV 80.7 D MCH 26.3 L MCHC 32.6 RDW 20.8 H Plt Count 213 MPV 9.8 Absolute Nucleated RBC 0.000 Nucleated RBC % (auto) 0.0 Blood Type B Positive Antibody Screen NEGATIVE Crossmatch See Detail Preliminary micro results at discharge 05/17/25 16:01 Blood Culture - Preliminary Blood - Venous No growth after 48 hours. 05/17/25 16:02 Blood Culture - Preliminary Blood - Venous No growth after 48 hours. Discharge Plan Discharge Anticipated Discharge Date/Time: 05/22/25 08:05 Patient Disposition: Home Health Service Discharge Diagnosis: C diff colitis Sepsis Hypokalemia Hematemesis Iron-deficiency anemia CHARLENE Starvation ketoacidosis Referrals: Arnulfo Villalba MD [Primary Care Provider, Medical] - 1 Week Discharge Medications: New vancomycin 125 mg Capsule 125 mg PO Q6H Qty: 29 0RF fluconazole 100 mg Tablet 100 mg PO DAILY Qty: 12 0RF pantoprazole [Protonix] 40 mg tablet,delayed release (DR/EC) 40 mg PO BID Qty: 60 0RF ferrous sulfate 325 mg (65 mg iron) tablet,delayed release (DR/EC) 325 mg PO DAILY Qty: 60 0RF Continued atorvastatin 40 mg Tablet 40 mg PO BEDTIME Qty: 30 0RF amlodipine 5 mg Tablet 5 mg PO DAILY Qty: 30 0RF Protocol: Hold for SBP< HOLD for SBP < : 90 dicyclomine 20 mg tablet 20 mg PO TID Qty: 10 0RF carvedilol 25 mg tablet 25 mg PO BID buspirone 10 mg tablet 10 mg PO BID fluticasone propionate 50 mcg/actuation spray,suspension 1 spray intranasal DAILY PRN (Reason: Allergic Symptoms) albuterol sulfate [Ventolin HFA] 90 mcg/actuation HFA aerosol inhaler 2 puff inhalation Q6H PRN (Reason: Respiratory Distress) acetaminophen [Tylenol Extra Strength] 500 mg tablet 1,000 mg PO Q6H PRN (Reason: Pain) lorazepam 0.5 mg tablet 0.5 mg PO BID PRN (Reason: anxiety) Qty: 60 2RF Rx Instructions: can cause balance problems paroxetine HCl 40 mg tablet 40 mg PO BEDTIME 90 Days Qty: 90 1RF mesalamine 4 gram/60 mL enema 4 g DC BEDTIME 14 Days Qty: 840 0RF omeprazole 40 mg capsule,delayed release(DR/EC) 40 mg PO DAILY potassium chloride 20 mEq tablet,ER particles/crystals 20 meq PO DAILY Discontinued levofloxacin 500 mg tablet 500 mg PO DAILY Qty: 7 0RF metronidazole 250 mg tablet 250 mg PO QID 7 Days Qty: 28 0RF Discharge Orders: Discharge Order (Routine); Ordered 05/22/25 Ordered By: Yudy Nicole Diet: Advance to usual diet Activity on Discharge: As tolerated Stand Alone Forms: Patient Portal Discharge page Print Language: Citizen Of [place] Care Plan Goals: Complete course of fluconazole for candidiasis Complete course of vancomycin for C diff Health Concerns: C diff colitis Sepsis Hypokalemia Hematemesis Iron-deficiency anemia CHARLENE Starvation ketoacidosis Plan of Treatment: Follow up with primary care provider as needed Take all medications as prescribed Assessment: See discharge summary
[2025-05-22] MEDS: Potassium Chloride ER 20 MEQ TAB.ER.PRT 40 MEQ PO (09:00)
[2025-05-22] MEDS: 0.9 % Sodium Chloride Flush 3 ML SYRINGE IVFLUSH (09:01)
--- NOTE | 2025-05-22 11:10 | MHC.CM.PN ---
Per MD rounds patient medically cleared for dc. PT rec home w/ services - [facility] has accepted, patient preference. [facility] will transport home. RN aware. [facility] delivered.
[2025-05-22 12:00] VITALS: BP 149/72; PULSE 57; RESP 18; TEMP 36; O2SAT 97
== END 2025-05-22 12:33 | disposition home health service (06) | DRG 872 ==
LOC: HO.ED 17:42 → HO.EDOVER 19:16 → HO.S3 19:26 → HO.IMC 19:48 → HO.S3 05-20 10:49
PROVIDERS: Admitting Provider Student in an Organized Health Care Education/Training Program; Emergency Provider Emergency Medicine Emergency Medical Services; PCP Internal Medicine; Visit Provider Nurse Practitioner Acute Care
DX: A41.9 Sepsis, unspecified organism (principal); N17.9 Acute kidney failure, unspecified; E87.29 Other acidosis; B37.81 Candidal esophagitis; A04.72 Enterocolitis due to Clostridium difficile, not specified as recurrent; K92.0 Hematemesis; D50.9 Iron deficiency anemia, unspecified; E86.0 Dehydration; E87.6 Hypokalemia; J45.20 Mild intermittent asthma, uncomplicated; I10 Essential (primary) hypertension; F41.9 Anxiety disorder, unspecified; Z87.891 Personal history of nicotine dependence; Z79.899 Other long term (current) drug therapy
CPT/HCPCS: 36415; 74176; 80048; 80053; 82010; 82272; 82550; 82803; 83540; 83605; 83690; 83735; 84484; 85014; 85018; 85025; 85027; 85610; 85730; 86850; 86900; 86901; 86923; 87040; 87324; 87493; 87507; 87637; 93005; 97162; 99285; J0360; J0737; J1756; J1920; J2405; J2470; J2543; J3010; J3480; J7120; P9016

== ENCOUNTER → 2025-05-17 15:04 | Outpatient (BNV) | payer MEDICARE, SELFPAY | PROVIDERS: Admitting Provider Student in an Organized Health Care Education/Training Program; Emergency Provider Emergency Medicine Emergency Medical Services; PCP Internal Medicine; Visit Provider Internal Medicine | DX: I49.1 Atrial premature depolarization (principal); I25.2 Old myocardial infarction; R00.0 Tachycardia, unspecified | CPT/HCPCS: 93010 ==

== ENCOUNTER 2025-05-17 17:51 | Outpatient (BNV) | payer MEDICARE, SELFPAY | END 2025-05-17 18:15 | PROVIDERS: Admitting Provider Student in an Organized Health Care Education/Training Program; Emergency Provider Emergency Medicine Emergency Medical Services; PCP Internal Medicine; Visit Provider Radiology Diagnostic Radiology | DX: K51.219 Ulcerative (chronic) proctitis with unspecified complications (principal) | CPT/HCPCS: 74176 ==

== ENCOUNTER → 2025-05-17 17:51 | Outpatient (BNV) | payer MEDICARE, SELFPAY | PROVIDERS: Admitting Provider Student in an Organized Health Care Education/Training Program; Emergency Provider Emergency Medicine Emergency Medical Services; PCP Internal Medicine; Visit Provider Student in an Organized Health Care Education/Training Program | DX: A04.72 Enterocolitis due to Clostridium difficile, not specified as recurrent (principal) | CPT/HCPCS: 99223; 99232; 99233; 99239; G0180 ==

== ENCOUNTER → 2025-05-17 17:51 | Outpatient (BNV) | payer MEDICARE, SELFPAY | PROVIDERS: Admitting Provider Student in an Organized Health Care Education/Training Program; Emergency Provider Emergency Medicine Emergency Medical Services; PCP Internal Medicine; Visit Provider Internal Medicine Gastroenterology | DX: A04.72 Enterocolitis due to Clostridium difficile, not specified as recurrent (principal) | CPT/HCPCS: 99232 ==

== ENCOUNTER 2025-05-28 11:54 | Emergency (ER) | payer MEDICARE, SELFPAY ==
[2025-05-28 12:14] VITALS: BP 122/88; BP 160/82; PULSE 80; PULSE 93; RESP 16; TEMP 36.7; O2SAT 97; BMI 22.6
--- NOTE | 2025-05-28 12:35 | ED.GENADULT ---
HPI - General Adult General Chief complaint: General Medical Stated complaint: ?MED REACTION,VERTIGO/UNSTEADY Time Seen by Provider: 05/28/25 12:25 Source: patient Limitations: no limitations History of Present Illness ED Provider: Dr. Seng Pennington HPI narrative: 74-year-old female with a history of lupus, GERD, recurrent diverticulitis, hypertension, stroke, TIA, hyperlipidemia, irritable bowel syndrome, proctitis, colitis, C difficile colitis who presents emergency department for evaluation of possible adverse reaction to medication. The patient states that she took 4 medications (fluconazole, vancomycin, loperamide and levofloxacin). She states that shortly after taking these medications she developed room spinning dizziness which is worse with movement and resolves completely with staying still she states that she believes 1 of the medications she took gave her an allergic reaction. Patient states that she had a cerebellar stroke in the past in his also had vertigo in the past and the symptoms feel similar to her vertigo. She states she had associated nausea with no vomiting. She denied change in her vision, numbness, weakness, difficulty thinking or difficulty talking. The patient was recently hospitalized at [facility] from 05/17/2025 until . The patient was admitted for proctitis with diffuse colitis and was treated with IV antibiotics. She also was positive for C difficile and treated with oral vancomycin. Patient also had severe starvation ketosis and severe metabolic acidosis with hypokalemia. Patient also had an upper GI bleed with coffee-ground emesis and hematemesis treated with PPIs. Related Data Home Medications ?Medication ?Instructions ?Recorded ?Confirmed fluticasone propionate 50 1 spray intranasal DAILY PRN 08/08/20 05/17/25 mcg/actuation nasal Allergic Symptoms spray,suspension albuterol sulfate 90 mcg/actuation 2 puff inhalation Q6H PRN 10/22/21 05/17/25 aerosol inhaler (Ventolin HFA) Respiratory Distress acetaminophen 500 mg tablet 1,000 mg PO Q6H PRN Pain 07/24/22 05/17/25 (Tylenol Extra Strength) omeprazole 40 mg capsule,delayed 40 mg PO DAILY 05/15/25 05/17/25 release potassium chloride 20 mEq 20 meq PO DAILY 05/15/25 05/17/25 tablet,extended release(part/cryst) buspirone 10 mg tablet 10 mg PO BID 05/17/25 05/17/25 carvedilol 25 mg tablet 25 mg PO BID 05/17/25 05/17/25 Previous Rx's ?Medication ?Instructions ?Recorded atorvastatin 40 mg tablet 40 mg PO BEDTIME #30 tabs 05/27/21 amlodipine 5 mg tablet 5 mg PO DAILY #30 tabs 10/26/22 lorazepam 0.5 mg tablet 0.5 mg PO BID PRN anxiety #60 tabs 03/03/25 paroxetine HCl 40 mg tablet 40 mg PO BEDTIME 90 days #90 tabs 03/03/25 mesalamine 4 gram/60 mL enema 4 g (60 mL) TN BEDTIME 14 days 03/08/25 #840 mL dicyclomine 20 mg tablet 20 mg PO TID #10 tabs 05/16/25 ferrous sulfate 325 mg (65 mg 325 mg PO DAILY #60 tabs 05/22/25 iron) tablet,delayed release fluconazole 100 mg tablet 100 mg PO DAILY #12 tabs 05/22/25 pantoprazole 40 mg tablet,delayed 40 mg PO BID #60 tabs 05/22/25 release (Protonix) vancomycin 125 mg capsule 125 mg PO Q6H #29 caps 05/22/25 lorazepam 0.5 mg tablet (Ativan) 0.5 mg PO TID PRN Dizziness, 05/28/25 nausea #10 tabs meclizine 25 mg tablet (Dramamine 25 mg PO TID PRN dizziness #20 tabs 05/28/25 Less Drowsy) Allergies Allergy/AdvReac Type Severity Reaction Status Date / Time Codeine Sulfate Allergy Severe Anaphylaxis Verified 05/28/25 12:16 diphenhydramine (From Allergy Intermediate sweats, Verified 05/28/25 12:16 Benadryl) palpitation egg Allergy Intermediate Heartburn Verified 05/28/25 12:16 Sulfa (Sulfonamide Allergy Intermediate RASH Verified 05/28/25 12:16 Antibiotics) (SULFA (SULFONAMIDE ANTIBIOTICS)) cefuroxime AdvReac Intermediate delerium Verified 05/28/25 12:16 ,paranoia Review of Systems Review of Systems: Yes all other systems are reviewed and are negative PMFSH Past Medical History 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 Surgical History History of open reduction and internal fixation (ORIF) procedure S/P repair of paraesophageal hernia Hx of colonoscopy History of cholecystectomy Family History Family History Father CAD (coronary artery disease) Maternal Grandmother HTN (hypertension), benign Father No problems noted. Mother Hypertension Asthma COPD (chronic obstructive pulmonary disease) Breast cancer, Onset Age: 101 Social History Social History Household Members: Other Household Members Other:: [place] Housing: House Are you a primary childcare attendant to a significant other at home: No Do you presently have visiting nurse or other home services: No Alcohol intake: former Patient Tobacco Use Status: Former Tobacco user Tobacco use type: Cigarette Years Smoked: quit greater than 10 years ago Second Hand Smoke Exposure: No Advance Directives: Yes Advance Directives on File: Yes Advance Directives Date on File: 04/07/23 Do you have a plan to hurt others: No Plan service: No Current occupational status: retired 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, 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 Physical Exam ED Vital Signs: Vital Signs - 24 hr 05/28/25 12:14 05/28/25 14:31 Temperature 98.0 F 98.2 F Pulse Rate 80 74 Respiratory Rate 16 16 Blood Pressure 122/88 152/62 H Pulse Oximetry 97 99 Oxygen Delivery Method Room Air Room Air BMI result Body Mass Index 22.6 Vital signs were normal Exam: General: Awake, alert in no distress Head: Normocephalic, atraumatic EENT: PERRL, positive lateral nystagmus Lids normal, sclera normal, conjunctiva normal, nose normal , ears normal, throat without erythema or exudates Neck: Supple, no adenopathy Lung: breath sounds symmetric, no wheezing, rales or rhonchi Chest: symmetric movement, nontender Heart: regular rate and rhythm, normal S1, S2 no murmurs or rubs Abdomen: soft, non-tender, nondistended, normal bowel sounds Back: no vertebral tenderness, no CVAT Extremities: no deformities, moves all extremities symmetrically Neuro: General: ?Awake, alert, oriented, normal speech Cranial nerves: ?Cranial nerves ?intact Strength: ?Moves all extremities symmetrically, strength 5/5 Cerebellar: ?Good rtpdbf-il-eyke-to-finger, good rapid finger movement, normal heel to wang. Patient did have room spinning vertigo with position change and lateral nystagmus Psych: Pleasant, cooperative Medications Administered Discontinued Medications Generic Name Dose Route Start Last Admin Trade Name Heladioq PRN Reason Stop Dose Admin Sodium Chloride 1,000 mls @ 999 mls/hr 05/28/25 13:07 05/28/25 14:05 Ns IV 05/28/25 14:07 999 mls/hr .Q1H1M STA Administration Lorazepam 1 mg 05/28/25 13:07 05/28/25 14:05 Lorazepam 1 Mg Tablet PO 05/28/25 13:08 1 mg ONCE STA Administration Meclizine HCl 25 mg 05/28/25 13:07 05/28/25 13:57 Meclizine Hcl 25 Mg Tablet PO 05/28/25 13:08 25 mg ONCE STA Administration Medical Decision Making Medical Decision Making MDM Narrative: 74-year-old female with a history of lupus, GERD, recurrent diverticulitis, hypertension, stroke, TIA, hyperlipidemia, irritable bowel syndrome, proctitis, colitis, C difficile colitis who presents emergency department for evaluation of possible adverse reaction to medication. The patient states that she took 4 medications (fluconazole, vancomycin, loperamide and levofloxacin). She states that shortly after taking these medications she developed room spinning dizziness which is worse with movement and resolves completely with staying still she states that she believes 1 of the medications she took gave her an allergic reaction. Patient states that she had a cerebellar stroke in the past in his also had vertigo in the past and the symptoms feel similar to her vertigo. She states she had associated nausea with no vomiting. She denied change in her vision, numbness, weakness, difficulty thinking or difficulty talking. Vital signs were normal. Physical examination revealed inducible vertigo with position change with lateral nystagmus. Differential diagnosis: ?Includes but is not limited to cerebellar stroke, positional vertigo, anemia, electrolyte abnormalities Course: 13:10 I ordered the following workup: CBC, CMP, lipase, magnesium, troponin, urinalysis, IV insert, O2 saturation monitoring, cardiac monitoring, 12 EKG. Patient was treated with normal saline IV x1 L, Ativan 1 mg orally meclizine 25 mg orally 15:27 My interpretation patient's laboratory evaluation as follows: WBC low 4500. H&H was normal 12.3 and 40.1. CMP was normal. Lipase was normal. Troponin was detectable but not elevated at 3.8. Twelve EKG was unremarkable. Patient did feel better after the above treatment. Patient's presentation is consistent with benign positional vertigo and I did discuss this with her. Patient was given a prescription for meclizine and Ativan. Patient was discharged home with printed and verbal instructions. Admission/Observation Consideration of admission/observation: Escalation of care including admission/observation considered (Yes) Lab Data MDM Lab Attestation statement: I reviewed the patient's lab results. 05/28/25 13:22 05/28/25 13:22 Labs: Lab Results 05/28/25 Range/Units 13:22 WBC 4.5 L (4.8-10.8) X10*3/uL RBC 4.70 (4.20-5.50) X10*6/uL Hgb 12.3 (12.0-16.0) g/dl Hct 40.1 D (37.0-47.0) % MCV 85.3 (80.0-98.0) fL MCH 26.2 L (27.0-33.0) pg MCHC 30.7 L (31.0-35.0) g/dl RDW 21.8 H (11.0-16.0) % Plt Count 161 (160-400) X10*3/uL MPV 10.4 (9.4-12.3) fL Immature Gran % (Auto) 0.2 (0.0-0.4) % Neut % (Auto) 64.8 (45-73) % Lymph % (Auto) 20.4 (20-40) % Norman % (Auto) 9.0 (2-11) % Eos % (Auto) 4.5 H (0-4) % Baso % (Auto) 1.1 (0-2) % Lymph # (Auto) 0.9 L (1.2-4.9) X10*3/uL Norman # (Auto) 0.4 (0.1-1.2) X10*3/uL Eos # (Auto) 0.2 (0.0-0.4) X10*3/uL Baso # (Auto) 0.1 (0.0-0.2) X10*3/uL Abs Immat Gran (auto) 0.01 (0.00-0.03) X10*3/uL Absolute Neuts (auto) 2.9 (2.0-8.3) x10*3/uL Absolute Nucleated RBC 0.000 (0.0-0.012) X10*3/uL Nucleated RBC % (auto) 0.0 (0.0-0.2) /100WBC Smear Tech's Comments VERIFIED Sodium 138 (135-145) mmol/L Potassium 3.6 (3.3-5.1) mmol/L Chloride 106 (96-108) mmol/L Carbon Dioxide 22 (22-29) mmol/L Anion Gap 14 (12-20) BUN 10 (9-16) mg/dL Creatinine 0.72 (0.5-1.4) mg/dL Estim Creat Clear Calc 48.5 Estimated GFR > 60 Random Glucose 101 (60-115) mg/dL Calcium 9.0 D (8.4-10.2) mg/dL Magnesium 1.6 (1.6-2.6) mg/dL Total Bilirubin 0.3 (0.0-1.0) mg/dL AST 21 (5-31) U/L ALT 11 (0-31) U/L Alkaline Phosphatase 73 (39-117) U/L Troponin I High Sens 3.8 D (<3.5-17.0) ng/L Total Protein 6.2 L (6.5-8.0) g/dL Albumin 3.8 (3.5-5.0) g/dL Lipase 13 (8-78) U/L Independent Interpretation I performed an independent interpretation of an: EKG Interpretation: My independent interpretation patient's 12 EKG done on 05/28/2025 at 13:27 hours is as follows: Normal sinus rhythm rate of 72, normal TN interval, QRS duration, QTC interval, no ST segment elevation, no ST segment depression, no PACs, no PVCs, no significant T-wave abnormalities Radiology Impression Discussion of test interpretation with radiology: I have reviewed the radiologist's reading. External Record Review External record reviewed: Inpatient record Chronic Conditions Patient?s care impacted by: Other (Lupus, GERD) Discharge Plan Discharge Clinical Impression: Benign paroxysmal positional vertigo Patient Disposition: Home, Self-Care Instructions: Benign Paroxysmal Positional Vertigo (DC) Additional Instructions: Your blood work today was unremarkable. Your EKG was normal. Your symptoms and exam are consistent with positional vertigo caused by a malfunction of the balance mechanism in your inner ear which cause you to feel like the room was spinning. Positional vertigo is self-limiting in usually gets better in 1-2 weeks, with the symptoms being worse over the 1st 2-3 days. Moves slowly and change positions slowly to try to prevent the dizziness. If you feel dizzy lie down or sit still for 15-20 minutes in the dizziness should resolve. Take meclizine 25 mg pills, 1 pill 3 times a day for the next 3 days for dizziness then as needed for dizziness. ?This medication will make you sleepy. ?Do not drive or work while taking this medication. Take Ativan 0.5 mg pills, 1 pill every 6 hours as needed for anxiety. ?This medication will make you sleepy, do not drive or work while taking this medication. ?This medication can be addicting, if your concerned about addiction you can ask the pharmacist for less medications or do not get the prescription filled. Follow-up with your doctor in 2 days. Please return to the emergency department if your symptoms get worse or if you develop any symptoms that are concerning to you. Prescriptions: New lorazepam [Ativan] 0.5 mg tablet 0.5 mg PO TID PRN (Reason: Dizziness, nausea) Qty: 10 0RF meclizine [Dramamine Less Drowsy] 25 mg tablet 25 mg PO TID PRN (Reason: dizziness) Qty: 20 0RF No Action atorvastatin 40 mg Tablet 40 mg PO BEDTIME Qty: 30 0RF amlodipine 5 mg Tablet 5 mg PO DAILY Qty: 30 0RF Protocol: Hold for SBP< HOLD for SBP < : 90 dicyclomine 20 mg tablet 20 mg PO TID Qty: 10 0RF carvedilol 25 mg tablet 25 mg PO BID buspirone 10 mg tablet 10 mg PO BID vancomycin 125 mg Capsule 125 mg PO Q6H Qty: 29 0RF fluconazole 100 mg Tablet 100 mg PO DAILY Qty: 12 0RF pantoprazole [Protonix] 40 mg tablet,delayed release (DR/EC) 40 mg PO BID Qty: 60 0RF ferrous sulfate 325 mg (65 mg iron) tablet,delayed release (DR/EC) 325 mg PO DAILY Qty: 60 0RF fluticasone propionate 50 mcg/actuation spray,suspension 1 spray intranasal DAILY PRN (Reason: Allergic Symptoms) albuterol sulfate [Ventolin HFA] 90 mcg/actuation HFA aerosol inhaler 2 puff inhalation Q6H PRN (Reason: Respiratory Distress) acetaminophen [Tylenol Extra Strength] 500 mg tablet 1,000 mg PO Q6H PRN (Reason: Pain) lorazepam 0.5 mg tablet 0.5 mg PO BID PRN (Reason: anxiety) Qty: 60 2RF Rx Instructions: can cause balance problems paroxetine HCl 40 mg tablet 40 mg PO BEDTIME 90 Days Qty: 90 1RF mesalamine 4 gram/60 mL enema 4 g TN BEDTIME 14 Days Qty: 840 0RF omeprazole 40 mg capsule,delayed release(DR/EC) 40 mg PO DAILY potassium chloride 20 mEq tablet,ER particles/crystals 20 meq PO DAILY Print Language: [place]
--- OUTSIDE RECORDS SUMMARY | 2025-05-28 12:41 | XMS_ITS | Patient Health Record ---
Author Organization [facility] Address [address] [place] [address] Care Team Providers Care Child And Family Therapist Name Role Phone Arnulfo Villalba MD Primary Care Provider Lucho Ley Unavailable [phone] Allergies Allergen (clinical drug ingredient) Drug/Non Drug Allergy documented on EMR Reaction Allergy Type Onset Date Status adhesive tape sensitivity (uncoded) Unknown Allergy Active diphenhydramine Antihistamine shaking Drug Allergy Active sulfa Unknown Drug Allergy Active codeine Codeine Unknown Drug Allergy Active Reason For Referral No Information Medications Medication SIG (Take, Route, Frequency, Duration) Notes Start Date End Date Status Verapamil HCl ER 240 MG 1 tablet Orally Once a day Active hydroCHLOROthiazide 200mg BID Active Lisinopril Unknown chlordiazePOXIDE HCl 10 MG Orally BID Active Omeprazole 20 MG Orally Once a day Active PARoxetine HCl 30 MG Orally Once a day Active Social History Tobacco use other than smoking: Question Answer Notes Are you an other tobacco user? No Problems Problem Type SNOMED Code ICD Code Onset Dates Problem Status W/U Status Risk Notes Problem Acquired hallux valgus (66641256) Hallux valgus (acquired), left foot (M20.12) Active confirmed Problem Acquired hallux valgus (50639666) Hallux valgus (acquired), right foot (M20.11) Active confirmed Plan Of Treatment Pending Test Test Name Order Date X ray : Ankle, left 2V 01/28/2017 X ray : Foot, left 3V 01/28/2017 23020- Ganglion Cyst Injection/Aspiratio n 08/03/2017 Insurance Providers Payer Name Payer Address Payer Phone Subscriber Number Group Number Insured Name Patient Relationship to Insured Coverage Start Date Coverage End Date Medicare [employer] [address] [place] [address] [id number] Renata Fulton Self - patient is the insured [facility] [address] [place] [address] [phone] [id number] Renata Fulton Self - patient is the insured Medical (General) History Medical History History ICD Code Anxiety Arthritis Back,Hip,and Knee pain Depression Headaches High blood pressure Lupus Reflux Chicken pox Mumps Measles Surgical History Surgery Date(Month/Year) gall stones, surgery 1988
--- NOTE | 2025-05-28 13:08 | ECG_ITS ---
Test Reason : vertigo Blood Pressure : */* mmHG Vent. Rate : 72 BPM Atrial Rate : 72 BPM P-R Int : 142 ms QRS Dur : 72 ms QT Int : 402 ms P-R-T Axes : 52 -9 30 degrees QTcB Int : 440 ms Normal sinus rhythm Minimal voltage criteria for LVH, may be normal variant ( R in aVL ) Cannot rule out Anterior infarct (cited on or before 04-Jun-2024) Abnormal ECG When compared with ECG of 17-May-2025 15:04, Premature atrial complexes are no longer Present Criteria for Inferior infarct are no longer Present ST no longer depressed in Lateral leads Referred By: Seng Pennington Electronically Signed By: SHANTELLE GU MD
[2025-05-28 13:29] LABS: Hematocrit 40.1 % (37.0-47.0); Hemoglobin 12.3 g/dl (12.0-16.0); Imm Gran Abs Auto 0.01 X10*3/uL (0.00-0.03); Imm Gran Pct Auto 0.2 % (0.0-0.4); Lymphocytes Absolute Auto 0.9 X10*3/uL (1.2-4.9); MANUAL DIFF FLAG SCAN; Mean Corpuscular HGB Conc 30.7 g/dl (31.0-35.0); Mean Corpuscular Hemoglobin 26.2 pg (27.0-33.0); Mean Corpuscular Volume 85.3 fL (80.0-98.0); NRBC Abs Auto 0.000 X10*3/uL (0.0-0.012); NRBC Pct Auto 0.0 /100WBC (0.0-0.2); PLT CLUMP 1; Red Blood Count 4.70 X10*6/uL (4.20-5.50); SCAN SMEAR FLAG 1
[2025-05-28 13:40] LABS: White Blood Count 4.5 X10*3/uL (4.8-10.8)
[2025-05-28 13:41] LABS: Platelet Count 161 X10*3/uL (160-400)
[2025-05-28 13:44] LABS: Alanine Aminotransferase 11 U/L (0-31); Albumin Level 3.8 g/dL (3.5-5.0); Alkaline Phosphatase 73 U/L (39-117); Anion Gap 14 (12-20); Aspartate Amino Transferase 21 U/L (5-31); Blood Urea Nitrogen 10 mg/dL (9-16); Calcium 9.0 mg/dL (8.4-10.2); Carbon Dioxide 22 mmol/L (22-29); Chloride 106 mmol/L (96-108); Creatinine Clr Calc Pharmacy 48.5; Estimated Glomerular Filt Rate > 60; Lipase 13 U/L (8-78); Magnesium 1.6 mg/dL (1.6-2.6); Potassium 3.6 mmol/L (3.3-5.1); Sodium 138 mmol/L (135-145); Total Protein 6.2 g/dL (6.5-8.0)
[2025-05-28 13:51] LABS: Troponin-I High Sensitivity 3.8 ng/L (<3.5-17.0)
[2025-05-28 14:31] VITALS: BP 152/62; PULSE 74; RESP 16; TEMP 36.8; O2SAT 99
[2025-05-28 16:12] VITALS: BP 152/62; PULSE 74; RESP 16; TEMP 36.8; O2SAT 99
== END 2025-05-28 16:12 | disposition home or self-care (01) ==
PROVIDERS: Emergency Provider Emergency Medicine Emergency Medical Services; PCP Internal Medicine
DX: H81.13 Benign paroxysmal vertigo, bilateral (principal); R11.2 Nausea with vomiting, unspecified; R94.31 Abnormal electrocardiogram [ECG] [EKG]; Z79.899 Other long term (current) drug therapy; Z87.891 Personal history of nicotine dependence; Z86.73 Personal history of transient ischemic attack (TIA), and cerebral infarction without residual deficits
CPT/HCPCS: 36415; 80053; 83690; 83735; 84484; 85025; 93005; 96360; 96361; 99284

== ENCOUNTER → 2025-05-28 13:08 | Outpatient (BNV) | payer MEDICARE, SELFPAY | PROVIDERS: Emergency Provider Emergency Medicine Emergency Medical Services; PCP Internal Medicine; Visit Provider Internal Medicine Cardiovascular Disease | DX: R94.31 Abnormal electrocardiogram [ECG] [EKG] (principal); R42 Dizziness and giddiness | CPT/HCPCS: 93010 ==

== ENCOUNTER 2025-06-09 10:53 | Outpatient (AMB) | payer MEDICARE, SELFPAY ==
--- OUTSIDE RECORDS SUMMARY | 2025-06-09 10:55 | XMS_ITS | Clinical Summary ---
Author Organization [facility] Address [address] [place] [address] [place] [phone] Phone Care Team Providers Care Active Directory Engineer Name Role Phone Unavailable Primary Care Provider Unavailabl e Encounters Date Type Department Care Team Description 05/22/2025 Orders Only [facility] [address] [place] [address] Homehealth, Interface ProviderMD from Last 3 Months Social History Tobacco Use Types Packs/Day Years Used Date Smoking Tobacco: Never Assessed Education Answer Date Recorded Are you interested in more education? Not on lucia e 05/22/2025 Are you concerned about learning? Not on file 05/22/2025 No 05/22/2025 No 05/22/2025 Digital Access Answer Date Recorded No 05/22/2025 No 05/22/2025 Reliable internet access at home? Not on file 05/22/2025 Device with a working camera? Not on file Comments Unknown Sex and Gender Information Value Date Recorded Sex Assigned at Not on file Legal Sex Female 10:59 AM EDT Gender Identity Not on file Sexual Orientation Not on file Plan of Treatment Not on file Medical Devices Not on file Insurance [facility] MED[facility] REPL[facility]EMENT [facility] MEDIC[facility] REPLACEMENT [facility] MEDIC[facility] REPLACEMENT Additional Source Comments The information contained in this document represents components of the legal health record. It is not the complete legal health record.[facility]
--- NOTE | 2025-06-09 11:34 | A.OFFPSYCH_ITS ---
Intake Intake Visit Reasons: depression Allergies Codeine Sulfate Allergy (Severe, Verified 07/10/25 08:52) Anaphylaxis diphenhydramine (From Benadryl) Allergy (Intermediate, Verified 07/10/25 08:52) sweats, palpitation egg Allergy (Intermediate, Verified 07/10/25 08:52) Heartburn Sulfa (Sulfonamide Antibiotics) (SULFA (SULFONAMIDE ANTIBIOTICS)) Allergy (Intermediate, Verified 07/10/25 08:52) RASH cefuroxime Adverse Reaction (Intermediate, Verified 07/10/25 08:52) delerium ,paranoia HPI- Psychiatric Chief Complaint: depression HPI Narrative: Patient seen psychiatric follow-up. Patient's mood has been increasingly depressed and anxious overwhelmed with multiple medical concerns recent hospitalization for colitis having a difficult time at home was severely dehydrated having falls whelmed with physical symptoms. Patient's PHQ-9 and GD are elevated denies any active thoughts of self-harm continues on Paxil lorazepam Past Psychiatric History: Patient has chronic history of panic somatic preoccupations mild depressive episodes. Patient has generally been doing okay she lives with her niece in the same building to family house. Some chronic anxiety related to chronic allergy symptoms have been encouraged visit to market research consultant or ENT which she has not pursued Librium has been cut in half over time history of panic attacks and anxiety generally stable with Paxil buspirone denies over medication does have some degree of chronic balance problems week and discussed possibility of physical therapy for strengthening and balance. S he is also seen by rheumatology Mental Status Exam Mental Status Exam Patient Appearance: Unkempt Patient Orientation: Person, Place, Time and Situation Level of Consciousness: Awake Patient Behavior: Anxious and Distractible Mood Description: Depressed and Anxious Affect Description: Constricted and Anxious Ability to Follow Directions: Good Memory Description: Intact Hallucinations: None Delusions: Not Present Thought Process: Rumination Depressive Symptoms: Increased Anxiety, Difficulty Sleeping, Loss of Int. in Activity and Loss of Energy Judgement: Fair Judgement and Insight: Patient feeling overwhelmed Assessment and Plan Assessment & Plan (1) Depression with anxiety: Status: Acute Code(s): F41.8 - Other specified anxiety disorders (2) Panic disorder [episodic paroxysmal anxiety]: Status: Acute Code(s): F41.0 - Panic disorder [episodic paroxysmal anxiety] (3) Generalized anxiety disorder: Status: Acute Code(s): F41.1 - Generalized anxiety disorder Plan L methyl folate 7.5 mg times 3 weeks if no improvement with energy and mood increased to 15 mg daily continue Paxil 40 mg daily buspirone 10 mg b.i.d. encourage probiotics yogurt patient is status post C diff infection follow-up 6 weeks needs much encouragement and support encourage home health aide and VNA Counseling and coordination of Care Details-Self Mgmt counseling: Discussed issues related to feeling vulnerable managing chronic GI symptoms Medication management counseling: Effectiveness, Side effects and Dosing range Details-Med Mgmt counseling: Discussed option to discontinue Paxil discussed risks benefits of benzodiazepines patient with frequent panic and anxiety did not tolerate mirtazapine reportedly asked addition at bedtime Diagnosis and Prognosis Counseling: Impact of diagnosis on life functions, Problematic behaviors secondary to diagnosis and Adequacy of current interventions Details-Diagnosis/Prognosis counseling: Encouraged addition of L methyl folate consider Abilify discussed risks benefits alternatives benzodiazepines which patient has been using for greater than 30 years for anxiety and panic frequent worry was referred for individual therapy but did not connect follow-up 3-4 weeks Details: I spent [38] minutes reviewing the record, seeing the patient and documenting in the medical record. Counseling provided to the patient/caregiver as outlined below. Addressed patient/caregiver concerns regarding current medication regime including effective adherence. Addressed patient/caregiver concerns regarding diagnosis and prognosis including accuracy of diagnosis, prognosis over time, impact of diagnosis. Addressed patient/caregiver concerns regarding impact of recent stressors. 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 Surgical History History of open reduction and internal fixation (ORIF) procedure S/P repair of paraesophageal hernia Hx of colonoscopy History of cholecystectomy Family History Father CAD (coronary artery disease) Maternal Grandmother HTN (hypertension), benign Father No problems noted. 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 The mother is she has a brother with PTSD family history of depression She never no children Substance History: none Trauma History: NA Coding Level of Care Code Est Pt Level 3 (17160) Therapy 30m w/E&M (77099) Diagnoses Depression with anxiety F41.8 Panic disorder [episodic paroxysmal anxiety] F41.0 Generalized anxiety disorder F41.1
== END 2025-06-09 11:40 | disposition home or self-care (01) ==
LOC: HO.HOP 10:53
PROVIDERS: PCP Internal Medicine; Visit Provider Psychiatry & Neurology Psychiatry
DX: F41.8 Other specified anxiety disorders (principal); F41.0 Panic disorder [episodic paroxysmal anxiety]; F41.1 Generalized anxiety disorder
CPT/HCPCS: 90833; 99213

== ENCOUNTER → 2025-06-09 10:53 | Outpatient (BNVA) | payer MEDICARE, SELFPAY | PROVIDERS: PCP Internal Medicine; Visit Provider Psychiatry & Neurology Psychiatry | DX: F41.8 Other specified anxiety disorders (principal); F41.0 Panic disorder [episodic paroxysmal anxiety]; F41.1 Generalized anxiety disorder | CPT/HCPCS: 99212 ==

== ENCOUNTER 2025-07-01 07:43 | Emergency (ER) | payer MEDICARE, SELFPAY ==
--- NOTE | ~2025-07-01 | CT_ITS ---
CLINICAL HISTORY: LLQ pain, diarrhea ?cdiff CT abdomen and pelvis with contrast Comparison: CT - CT ABDOMEN PELVIS W IV CON - 07/01/25 09:21 EDT Findings: There is a large hiatal hernia. Multiple small hepatic cysts are seen. The liver is otherwise unremarkable. The patient is status post cholecystectomy. The rest of the solid organs are unremarkable. There is colonic wall thickening with submucosal edema/inflammation and thumb printing best seen in the sigmoid colon. Findings are compatible with infectious/inflammatory colitis. There are colonic diverticula. There is no evidence of diverticulitis. There is a calcified uterine leiomyoma. There is a severe chronic compression fracture of T12. IMPRESSION: 1. Infectious/inflammatory colitis. 2. Large hiatal hernia. 3. Colonic diverticulosis. This document has been electronically signed by: Elton Crawford MD on 07/01/2025 10:09:33
[2025-07-01 07:52] VITALS: BP 190/89; PULSE 66; RESP 14; TEMP 36.4; O2SAT 95; BMI 23.1
--- OUTSIDE RECORDS SUMMARY | 2025-07-01 08:03 | XMS_ITS | Clinical Summary ---
Author Organization [facility] Address [address] [place] [address] [place] [phone] Phone Care Team Providers Care Content Administrator Name Role Phone Unavailable Primary Care Provider Unavailabl e Encounters Date Type Department Care Team Description 05/22/2025 Orders Only [facility] [address] [place] [address] Homehealth, Interface ProviderMD from Last 3 Months [...] file Medical Devices Not on file Insurance [facility] MEDICARE REPLACEMENT [facility] MEDICARE REPLACEMENT [facility] MEDICARE REPLACEMENT Additional Source Comments The information contained in this document represents components of the legal health record. It is not the complete legal health record.[facility]
[2025-07-01 08:08] LABS: MANUAL DIFF FLAG NO
[2025-07-01 08:09] LABS: Hematocrit 35.4 % (37.0-47.0); Hemoglobin 12.3 g/dl (12.0-16.0); Imm Gran Abs Auto 0.03 X10*3/uL (0.00-0.03); Imm Gran Pct Auto 0.5 % (0.0-0.4); Lymphocytes Absolute Auto 1.1 X10*3/uL (1.2-4.9); Mean Corpuscular HGB Conc 34.7 g/dl (31.0-35.0); Mean Corpuscular Hemoglobin 29.0 pg (27.0-33.0); Mean Corpuscular Volume 83.5 fL (80.0-98.0); NRBC Abs Auto 0.000 X10*3/uL (0.0-0.012); NRBC Pct Auto 0.0 /100WBC (0.0-0.2); Platelet Count 256 X10*3/uL (160-400); Red Blood Count 4.24 X10*6/uL (4.20-5.50); White Blood Count 5.5 X10*3/uL (4.8-10.8)
[2025-07-01 08:27] LABS: Alanine Aminotransferase 9 U/L (0-31); Albumin Level 3.9 g/dL (3.5-5.0); Alkaline Phosphatase 100 U/L (39-117); Anion Gap 15 (12-20); Aspartate Amino Transferase 25 U/L (5-31); Blood Urea Nitrogen 6 mg/dL (9-16); Calcium 8.7 mg/dL (8.4-10.2); Carbon Dioxide 24 mmol/L (22-29); Chloride 106 mmol/L (96-108); Creatinine Clr Calc Pharmacy 57.2; Estimated Glomerular Filt Rate > 60; Sodium 142 mmol/L (135-145); Total Protein 6.5 g/dL (6.5-8.0)
[2025-07-01 08:28] LABS: Potassium 2.9 mmol/L (3.3-5.1)
--- NOTE | 2025-07-01 08:37 | ECG_ITS ---
Test Reason : LOW POTASSIUM Blood Pressure : */* mmHG Vent. Rate : 67 BPM Atrial Rate : 67 BPM P-R Int : 148 ms QRS Dur : 70 ms QT Int : 422 ms P-R-T Axes : 31 -15 26 degrees QTcB Int : 445 ms Normal sinus rhythm Minimal voltage criteria for LVH, may be normal variant ( R in aVL ) Cannot rule out Anterior infarct (cited on or before 04-Jun-2024) Abnormal ECG When compared with ECG of 28-May-2025 13:27, No significant change was found Referred By: Marisela Girard Electronically Signed By: JERSEY WILKES
--- NOTE | 2025-07-01 08:51 | ED.ABDPAIN ---
HPI - Abdominal Pain General Chief Complaint: Abdominal Pain Stated Complaint: infection Time Seen by Provider: 07/01/25 08:15 Source: patient Mode of arrival: ambulatory Limitations: no limitations History of Present Illness ED Provider: MARISELA GIRARD PA-C HPI narrative: 74-year-old female with pmhx significant for hypertension, hyperlipidemia, asthma, GERD, IBS, anxiety, lupus, CVA, vertigo presents to the ED today for evaluation of multiple loose stools x3 days. Reports over 10 episodes of loose stool/ day. States stool is green in color. She has not had a bowel movement today. She states I have nothing left in me . Reports associated left lower quadrant abdominal pain, no radiation. She has been taking Tylenol without relief. Also endorses nausea without vomiting. Denies fever, chills. Patient reports recent admission to our facility for bad intestines . Admits she has been on multiple antibiotics over the last month, her last course being approximately 2 weeks ago. Related Data Home Medications ?Medication ?Instructions ?Recorded ?Confirmed fluticasone propionate 50 1 spray intranasal DAILY PRN 08/08/20 05/17/25 mcg/actuation nasal Allergic Symptoms spray,suspension albuterol sulfate 90 mcg/actuation 2 puff inhalation Q6H PRN 10/22/21 05/17/25 aerosol inhaler (Ventolin HFA) Respiratory Distress acetaminophen 500 mg tablet 1,000 mg PO Q6H PRN Pain 07/24/22 05/17/25 (Tylenol Extra Strength) omeprazole 40 mg capsule,delayed 40 mg PO DAILY 05/15/25 05/17/25 release potassium chloride 20 mEq 20 meq PO DAILY 05/15/25 05/17/25 tablet,extended release(part/cryst) carvedilol 25 mg tablet 25 mg PO BID 05/17/25 05/17/25 Previous Rx's ?Medication ?Instructions ?Recorded atorvastatin 40 mg tablet 40 mg PO BEDTIME #30 tabs 05/27/21 amlodipine 5 mg tablet 5 mg PO DAILY #30 tabs 10/26/22 paroxetine HCl 40 mg tablet 40 mg PO BEDTIME 90 days #90 tabs 03/03/25 mesalamine 4 gram/60 mL enema 4 g (60 mL) HI BEDTIME 14 days 03/08/25 #840 mL dicyclomine 20 mg tablet 20 mg PO TID #10 tabs 05/16/25 ferrous sulfate 325 mg (65 mg 325 mg PO DAILY #60 tabs 05/22/25 iron) tablet,delayed release fluconazole 100 mg tablet 100 mg PO DAILY #12 tabs 05/22/25 pantoprazole 40 mg tablet,delayed 40 mg PO BID #60 tabs 05/22/25 release (Protonix) vancomycin 125 mg capsule 125 mg PO Q6H #29 caps 05/22/25 meclizine 25 mg tablet (Dramamine 25 mg PO TID PRN dizziness #20 tabs 05/28/25 Less Drowsy) buspirone 10 mg tablet 10 mg PO BID 3 months #180 tabs 06/02/25 lorazepam 0.5 mg tablet 0.5 mg PO BID PRN anxiety #60 tabs 06/02/25 levofloxacin 750 mg tablet 750 mg PO DAILY 5 days #5 tabs 07/01/25 metronidazole 500 mg tablet 500 mg PO BID 7 days #14 tabs 07/01/25 Allergies Allergy/AdvReac Type Severity Reaction Status Date / Time Codeine Sulfate Allergy Severe Anaphylaxis Verified 07/01/25 07:55 diphenhydramine (From Allergy Intermediate sweats, Verified 07/01/25 07:55 Benadryl) palpitation egg Allergy Intermediate Heartburn Verified 07/01/25 07:55 Sulfa (Sulfonamide Allergy Intermediate RASH Verified 07/01/25 07:55 Antibiotics) (SULFA (SULFONAMIDE ANTIBIOTICS)) cefuroxime AdvReac Intermediate delerium Verified 07/01/25 07:55 ,paranoia Review of Systems Review of Systems Yes all other systems are reviewed and are negative PMFSH Past Medical History Attestation statement: The following information was validated with the patient. 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 Surgical History History of open reduction and internal fixation (ORIF) procedure S/P repair of paraesophageal hernia Hx of colonoscopy History of cholecystectomy Family History Family History Father CAD (coronary artery disease) Maternal Grandmother HTN (hypertension), benign Father No problems noted. Mother Hypertension Asthma COPD (chronic obstructive pulmonary disease) Breast cancer, Onset Age: 101 Social History Social History Household Members: Other Household Members Other:: NEIC Housing: House Are you a primary health care assistant to a significant other at home: No Do you presently have visiting nurse or other home services: No Alcohol intake: former Patient Tobacco Use Status: Former Tobacco user Tobacco use type: Cigarette Years Smoked: quit greater than 10 years ago Second Hand Smoke Exposure: No Advance Directives Date on File: 04/07/23 service: No Current occupational status: retired 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 Skin: Warm, dry, intact. No rashes or lesions. Head: Normocephalic, atraumatic. EENT: Hearing is intact b/l. Conjunctiva clear. PERRLA. EOM intact. Moist mucous membranes.? Cardiac: Chest wall symmetric. RRR Lungs: Normal respiratory effort without accessory muscle use. CTA bilaterally Abdomen: Soft, non-tender, non-distended. No rebound tenderness or guarding. Positive BS x4. no cvat. Back: No midline spinous or paraspinal tenderness. No step off deformity. Ext: Upper and lower extremities atraumatic, without tenderness, deformity, swelling or erythema Neuro: AOx3. Normal speech. Ambulating with steady gait. Course Course Course Narrative: 1334 -- CBC without leukocytosis or left shift. H&H stable. Chemistry showing hypokalemia to 2.9 and hypomagnesemia to 1.5. Patient received repletion in the ED with improvement, levels now normalized. No CHARLENE. Liver function WNL. Urine without infection. CT abdomen/pelvis showing colonic wall thickening with submucosal edema/inflammation and thumb printing primarily in the sigmoid colon compatible with infectious/inflammatory colitis. There are colonic diverticula without overt evidence of diverticulitis. > I discussed findings with patient. She has been in our ED for over 5 hours and has been unable to provide a stool sample as she has not had diarrhea. This is reassuring. I have low suspicion for C diff at this time as patient was recently treated for this. Given 3 days of loose stool and findings consistent with infectious colitis, will treat with Flagyl and levofloxacin. Patient is agreeable with this. She is tolerating crackers and anne preethi. She can be discharged home on oral medication. Patient has remained stable throughout ED visit today. Discussed worrisome signs and symptoms and when to return to the ED. All questions answered at this time. Patient is agreeable with disposition and stable for discharge. Medical Decision Making Medical Decision Making MDM Narrative: 74-year-old female with pmhx significant for hypertension, hyperlipidemia, asthma, GERD, IBS, anxiety, lupus, CVA, vertigo presents to the ED today for evaluation of multiple loose stools x3 days. Hypertensive, vitals are otherwise WNL. She is generally well-appearing and in no acute distress. Ambulating with steady gait assisted by cane. Exam is reassuring, abdomen is soft, nondistended, nontender to palpation without rebound or guarding. active bs. Differential diagnoses: diverticulitis, diverticulosis, UTI, constipation, colitis Abdominal exam without peritoneal signs. No evidence of acute abdomen at this time. Well appearing. Low suspicion for acute infectious processes (pneumonia, pyelonephritis, PID, TOA), vascular catastrophe, bowel obstruction or viscus perforation, ovarian cyst/ rupture/ torsion, ectopic. Presentation not consistent with other acute, emergent causes of abdominal pain at this time. Plan: labs, UA, CT AP, pain control, fluids, serial reassessment Differential Diagnosis Differential Diagnoses: The differential diagnosis associated with the presentation includes as above. Admission/Observation not indicated Lab Data MDM Lab Attestation statement: I reviewed the patient's lab results. as above. 07/01/25 08:04 07/01/25 12:41 Labs: Lab Results 07/01/25 07/01/25 07/01/25 Range/Units 08:04 10:15 12:41 WBC 5.5 (4.8-10.8) X10*3/uL RBC 4.24 (4.20-5.50) X10*6/uL Hgb 12.3 (12.0-16.0) g/dl Hct 35.4 L (37.0-47.0) % MCV 83.5 (80.0-98.0) fL MCH 29.0 (27.0-33.0) pg MCHC 34.7 (31.0-35.0) g/dl RDW 18.2 H (11.0-16.0) % Plt Count 256 D (160-400) X10*3/uL MPV 8.5 L (9.4-12.3) fL Immature Gran % (Auto) 0.5 H (0.0-0.4) % Neut % (Auto) 67.8 (45-73) % Lymph % (Auto) 20.8 (20-40) % [place] % (Auto) 8.7 (2-11) % Eos % (Auto) 1.5 (0-4) % Baso % (Auto) 0.7 (0-2) % Lymph # (Auto) 1.1 L (1.2-4.9) X10*3/uL [place] # (Auto) 0.5 (0.1-1.2) X10*3/uL Eos # (Auto) 0.1 (0.0-0.4) X10*3/uL Baso # (Auto) 0.0 (0.0-0.2) X10*3/uL Abs Immat Gran (auto) 0.03 (0.00-0.03) X10*3/uL Absolute Neuts (auto) 3.7 (2.0-8.3) x10*3/uL Absolute Nucleated RBC 0.000 (0.0-0.012) X10*3/uL Nucleated RBC % (auto) 0.0 (0.0-0.2) /100WBC Sodium 142 142 (135-145) mmol/L Potassium 2.9 L* 3.6 D (3.3-5.1) mmol/L Chloride 106 105 (96-108) mmol/L Carbon Dioxide 24 25 (22-29) mmol/L Anion Gap 15 16 (12-20) BUN 6 L 5 L (9-16) mg/dL Creatinine 0.61 0.60 (0.5-1.4) mg/dL Estim Creat Clear Calc 57.2 58.1 Estimated GFR > 60 > 60 Random Glucose 109 96 (60-115) mg/dL Lactic Acid 0.7 (0.5-2.0) mmol/L Calcium 8.7 8.4 (8.4-10.2) mg/dL Magnesium 1.5 L 2.4 (1.6-2.6) mg/dL Total Bilirubin 0.3 (0.0-1.0) mg/dL AST 25 (5-31) U/L ALT 9 (0-31) U/L Alkaline Phosphatase 100 (39-117) U/L Total Protein 6.5 (6.5-8.0) g/dL Albumin 3.9 (3.5-5.0) g/dL Urine Color Yellow Urine Appearance Clear Urine pH 7.0 (5.0-9.0) Ur Specific [place] >= 1.030 H (1.005-1.025) Urine Protein Negative (Neg-Trace) mg/dL Urine Glucose (UA) Negative (Negative) mg/dL Urine Ketones Negative (Negative) mg/dL Urine Blood Negative (Negative) Urine Nitrite Negative (Negative) Ur Leukocyte Esterase Negative (Negative) Independent Interpretation I performed an independent interpretation of an: CT Scan Interpretation: ct a/p showing colonic wall thickening Radiology Impression Discussion of test interpretation with radiology: I have reviewed the radiologist's reading. Radiologist Impression: Date of Service: 07/01/25 Procedure(s): CT abdomen pelvis w IV con Accession Number(s): [id number] cc: Arnulfo Villalba MD; Marisela Girard~ Report Number: [id number]: Total DLP = 391.00 mGy-cm CLINICAL HISTORY: LLQ pain, diarrhea ?cdiff CT abdomen and pelvis with contrast Comparison: CT - CT ABDOMEN PELVIS W IV CON - 07/01/25 09:21 EDT Findings: There is a large hiatal hernia. Multiple small hepatic cysts are seen. The liver is otherwise unremarkable. The patient is status post cholecystectomy. The rest of the solid organs are unremarkable. There is colonic wall thickening with submucosal edema/inflammation and thumb printing best seen in the sigmoid colon. Findings are compatible with infectious/inflammatory colitis. There are colonic diverticula. There is no evidence of diverticulitis. There is a calcified uterine leiomyoma. There is a severe chronic compression fracture of T12. IMPRESSION: 1. Infectious/inflammatory colitis. 2. Large hiatal hernia. 3. Colonic diverticulosis. This document has been electronically signed by: Elton Crawford MD on 07/01/2025 10:09:33 External Record Review External record reviewed: Inpatient record Prescription Management I considered prescription management with: Pain Medication and Antibiotic (levofloxacin, flagyl) Social Determinants Patient?s care significantly limited by Social Determinants of Health including: Other Social Determinant of Health Medications Administered Discontinued Medications Generic Name Dose Route Start Last Admin Trade Name Freq PRN Reason Stop Dose Admin Potassium Chloride 10 meq in 100 mls @ 100 mls/hr 07/01/25 09:15 07/01/25 13:25 Potassium Chloride/H20 IV 07/01/25 11:14 Infused Q1H RAMONA Infusion Sodium Chloride 1,000 mls @ 999 mls/hr 07/01/25 09:15 07/01/25 13:25 Ns IV 07/01/25 10:15 Infused .Q1H1M RAMONA Infusion Magnesium Sulfate 2 gm in 50 mls @ 25 mls/hr 07/01/25 09:14 07/01/25 11:51 Magnesium Sulfate/H2o IV 07/01/25 11:13 Infused ONCE ONE Infusion Iohexol 100 ml 07/01/25 09:37 07/01/25 09:37 Iohexol 350 Mg/Ml 100 Ml Infus..Btl IV 07/01/25 09:38 85 ml ONCE ONE Administration Ketorolac Tromethamine 30 mg 07/01/25 10:24 07/01/25 11:45 Ketorolac Tromethamine 30 Mg/Ml Vial IVPUSH 07/01/25 10:25 30 mg ONCE ONE Administration Lorazepam 0.5 mg 07/01/25 11:31 07/01/25 11:45 Lorazepam 0.5 Mg Tablet PO 07/01/25 11:32 0.5 mg ONCE ONE Administration Ondansetron HCl 4 mg 07/01/25 09:10 07/01/25 09:16 Ondansetron Hcl 4 Mg/2 Ml Vial IVPUSH 07/01/25 09:11 4 mg ONCE ONE Administration Potassium Chloride 60 meq 07/01/25 09:09 07/01/25 09:16 Potassium Chloride Packet 20 Meq Packet PO 07/01/25 09:10 60 meq ONCE ONE Administration Critical Care Time Critical Care Time Critical Care Time: No Discharge Plan Discharge Clinical Impression: Infectious colitis Patient Disposition: Home, Self-Care Instructions: Infectious Colitis (ED) Additional Instructions: You were evaluated in the ED today for left-sided abdominal pain and diarrhea. Your blood work showed low potassium and magnesium levels. You were provided with repletion in the ED with improvement in levels. Your urine does not demonstrate infection. You were unable to provide us with a stool sample today. The CT scan of your abdomen shows findings concerning for infectious colitis. I am treating you with two different antibiotics. Levofloxacin and Flagyl have been sent to your pharmacy for treatment. Take both of these as prescribed and to completion. Follow up with your PCP and GI doctor. Return with any new or worsening symptoms. In the case of an emergency call 911. Prescriptions: New metronidazole 500 mg tablet 500 mg PO BID 7 Days Qty: 14 0RF levofloxacin 750 mg tablet 750 mg PO DAILY 5 Days Qty: 5 0RF No Action buspirone 10 mg tablet 10 mg PO BID 90 Days Qty: 180 1RF lorazepam 0.5 mg tablet 0.5 mg PO BID PRN (Reason: anxiety) Qty: 60 2RF Rx Instructions: can cause balance problems atorvastatin 40 mg Tablet 40 mg PO BEDTIME Qty: 30 0RF amlodipine 5 mg Tablet 5 mg PO DAILY Qty: 30 0RF Protocol: Hold for SBP< HOLD for SBP < : 90 dicyclomine 20 mg tablet 20 mg PO TID Qty: 10 0RF carvedilol 25 mg tablet 25 mg PO BID vancomycin 125 mg Capsule 125 mg PO Q6H Qty: 29 0RF fluconazole 100 mg Tablet 100 mg PO DAILY Qty: 12 0RF pantoprazole [Protonix] 40 mg tablet,delayed release (DR/EC) 40 mg PO BID Qty: 60 0RF ferrous sulfate 325 mg (65 mg iron) tablet,delayed release (DR/EC) 325 mg PO DAILY Qty: 60 0RF meclizine [Dramamine Less Drowsy] 25 mg tablet 25 mg PO TID PRN (Reason: dizziness) Qty: 20 0RF fluticasone propionate 50 mcg/actuation spray,suspension 1 spray intranasal DAILY PRN (Reason: Allergic Symptoms) albuterol sulfate [Ventolin HFA] 90 mcg/actuation HFA aerosol inhaler 2 puff inhalation Q6H PRN (Reason: Respiratory Distress) acetaminophen [Tylenol Extra Strength] 500 mg tablet 1,000 mg PO Q6H PRN (Reason: Pain) paroxetine HCl 40 mg tablet 40 mg PO BEDTIME 90 Days Qty: 90 1RF mesalamine 4 gram/60 mL enema 4 g HI BEDTIME 14 Days Qty: 840 0RF omeprazole 40 mg capsule,delayed release(DR/EC) 40 mg PO DAILY potassium chloride 20 mEq tablet,ER particles/crystals 20 meq PO DAILY Referrals: [facility] [place] [facility] [Provider Group, Gastroenterology] Arnulfo Villalba MD [Primary Care Provider, Medical] Discharge Date/Time: 07/01/25 13:45 Print Language: Serbian
[2025-07-01 09:12] LABS: Magnesium 1.5 mg/dL (1.6-2.6)
[2025-07-01] MEDS: Potassium Chloride Packet 20 MEQ PACKET 60 MEQ PO (09:16)
[2025-07-01] MEDS: Potassium Chloride/H20 10 MEQ/100 ML PIGGYBACK 100 MEQ IV ×2 (09:24→11:45)
[2025-07-01] MEDS: iohexoL 350 MG/ML 100 ML INFUS..BTL IV (09:37)
[2025-07-01 10:37] LABS: Appearance Urine Clear; Glucose Urine UA Negative (Negative); PH 7.0 (5.0-9.0); Specific Gravity - Urine >= 1.030 (1.005-1.025)
[2025-07-01] MEDS: Magnesium Sulfate/H2O 2 GM/50 ML PIGGYBACK IV (11:17)
[2025-07-01 13:04] LABS: Blood Urea Nitrogen 5 mg/dL (9-16); Calcium 8.4 mg/dL (8.4-10.2); Creatinine Clr Calc Pharmacy 58.1; Estimated Glomerular Filt Rate > 60; Magnesium 2.4 mg/dL (1.6-2.6)
[2025-07-01 13:17] LABS: Anion Gap 16 (12-20); Carbon Dioxide 25 mmol/L (22-29); Chloride 105 mmol/L (96-108); Potassium 3.6 mmol/L (3.3-5.1); Sodium 142 mmol/L (135-145)
[2025-07-01 13:44] VITALS: BP 176/83; PULSE 68; RESP 16; TEMP 36.1; O2SAT 96
== END 2025-07-01 13:45 | disposition home or self-care (01) ==
PROVIDERS: Physician Assistant Medical; Emergency Provider Emergency Medicine; PCP Internal Medicine
DX: A09 Infectious gastroenteritis and colitis, unspecified (principal); E87.6 Hypokalemia; R10.2 Pelvic and perineal pain; R11.2 Nausea with vomiting, unspecified; R94.31 Abnormal electrocardiogram [ECG] [EKG]; Z79.899 Other long term (current) drug therapy; Z87.891 Personal history of nicotine dependence
CPT/HCPCS: 36415; 74177; 80048; 80053; 81003; 83605; 83735; 85025; 87040; 93005; 96365; 96366; 96375; 99285; J1885; J2405; J3475; J3480; Q9967

== ENCOUNTER → 2025-07-01 08:37 | Outpatient (BNV) | payer MEDICARE, SELFPAY | PROVIDERS: Emergency Provider Emergency Medicine; PCP Internal Medicine; Visit Provider Internal Medicine | DX: R94.31 Abnormal electrocardiogram [ECG] [EKG] (principal); E87.6 Hypokalemia | CPT/HCPCS: 93010 ==

== ENCOUNTER → 2025-07-01 09:09 | Outpatient (BNV) | payer MEDICARE, SELFPAY | PROVIDERS: Emergency Provider Emergency Medicine; PCP Internal Medicine; Visit Provider Radiology Diagnostic Radiology | DX: K57.30 Diverticulosis of large intestine without perforation or abscess without bleeding (principal); K44.9 Diaphragmatic hernia without obstruction or gangrene | CPT/HCPCS: 74177 ==

== ENCOUNTER 2025-07-03 12:29 | Inpatient (IN) | payer MEDICARE, SELFPAY ==
[2025-07-03] VITALS (10 sets, daily range): BP systolic 155–206; BP diastolic 60–108; PULSE 67–75; RESP 17–18; TEMP 36.2–37.1; O2SAT 97–99; BMI 21.3; BMI 22.0
--- NOTE | ~2025-07-03 | XR_ITS ---
CLINICAL HISTORY: Chest pain, shortness of breath 1 view chest x-ray Comparison: Chest x-ray from 04/02/2025 Findings: Low lung volumes with new mild bibasilar atelectasis/pneumonitis. No pneumothorax or pleural effusion in this portable image. No significant change of the imaged mediastinum. Severe degenerative changes of the imaged shoulders and AC joints. Sclerosis is nonspecific and may reflect avascular necrosis, particularly in the left glenohumeral joint with small adjacent ossicle and/or loose body. IMPRESSION: Mild bibasilar atelectasis/pneumonitis This document has been electronically signed by: Hudson Alcala MD on 07/03/2025 23:49:41
--- NOTE | ~2025-07-03 | CT_ITS ---
CLINICAL HISTORY: headache CT head without contrast Comparison: MR - MR HEAD/BRAIN WO CON - 03/29/25 17:[address]/[place]/SR - CT HEAD FOR STROKE - 03/29/25 13:30 EDT Findings: There is no acute intracranial hemorrhage. Ventricles are within normal limits in size. No mass effect or midline shift is present. The valdes-white matter differentiation appears normal. There is mild generalized cerebral atrophy. Mild hypoattenuation in the periventricular white matter appears stable and is consistent with chronic small vessel ischemic disease. There are unchanged chronic lacunar infarcts within the thalami and basal ganglia. The visualized portions of the orbits, paranasal sinuses, and mastoids are unremarkable. No fractures are identified. IMPRESSION: 1. No acute intracranial abnormality. 2. Stable chronic findings as above. This document has been electronically signed by: Landon Christianson MD on 07/03/2025 19:11:09
--- NOTE | 2025-07-03 13:02 | ECG_ITS ---
Test Reason : GI BLEED Blood Pressure : */* mmHG Vent. Rate : 69 BPM Atrial Rate : 69 BPM P-R Int : 150 ms QRS Dur : 70 ms QT Int : 418 ms P-R-T Axes : 37 -15 22 degrees QTcB Int : 447 ms Normal sinus rhythm Possible Left atrial enlargement Minimal voltage criteria for LVH, may be normal variant ( R in aVL ) Cannot rule out Anterior infarct (cited on or before 04-Jun-2024) Abnormal ECG When compared with ECG of 01-Jul-2025 10:23, No significant change was found Referred By: Charles Freire Electronically Signed By: Dave Pope
--- NOTE | 2025-07-03 13:03 | ED.GENADULT ---
HPI - General Adult General Chief complaint: General Medical Stated complaint: AMS RECTAL BLEEDING Time Seen by Provider: 07/03/25 12:50 Source: patient and EMS Mode of arrival: EMS Limitations: no limitations History of Present Illness ED Provider: DR. Freire HPI narrative: 74-year-old female with PMH significant for HTN, HLD, asthma GERD, IBS, anxiety, lupus, CVA with mild right facial droop, vertigo presented to the ED today for evaluation of black stool and bloody diarrhea, patient was seen 2 days ago in the emergency stitching department supervisor CT of the abdomen pelvis consistent with acute infectious colitis and hypokalemia. Patient returned today for intermittent abdominal cramps with bloody bowel movements of loose stool with mucus. Patient also thinks that she has a stroke feel disoriented and foggy. Initial screening neuro exam reveals no suspicion for stroke. Related Data Home Medications ?Medication ?Instructions ?Recorded ?Confirmed fluticasone propionate 50 1 spray intranasal DAILY PRN 08/08/20 05/17/25 mcg/actuation nasal Allergic Symptoms spray,suspension albuterol sulfate 90 mcg/actuation 2 puff inhalation Q6H PRN 10/22/21 05/17/25 aerosol inhaler (Ventolin HFA) Respiratory Distress acetaminophen 500 mg tablet 1,000 mg PO Q6H PRN Pain 07/24/22 05/17/25 (Tylenol Extra Strength) omeprazole 40 mg capsule,delayed 40 mg PO DAILY 05/15/25 05/17/25 release potassium chloride 20 mEq 20 meq PO DAILY 05/15/25 05/17/25 tablet,extended release(part/cryst) carvedilol 25 mg tablet 25 mg PO BID 05/17/25 05/17/25 Previous Rx's ?Medication ?Instructions ?Recorded atorvastatin 40 mg tablet 40 mg PO BEDTIME #30 tabs 05/27/21 amlodipine 5 mg tablet 5 mg PO DAILY #30 tabs 10/26/22 paroxetine HCl 40 mg tablet 40 mg PO BEDTIME 90 days #90 tabs 03/03/25 mesalamine 4 gram/60 mL enema 4 g (60 mL) CA BEDTIME 14 days 03/08/25 #840 mL dicyclomine 20 mg tablet 20 mg PO TID #10 tabs 05/16/25 ferrous sulfate 325 mg (65 mg 325 mg PO DAILY #60 tabs 05/22/25 iron) tablet,delayed release fluconazole 100 mg tablet 100 mg PO DAILY #12 tabs 05/22/25 pantoprazole 40 mg tablet,delayed 40 mg PO BID #60 tabs 05/22/25 release (Protonix) vancomycin 125 mg capsule 125 mg PO Q6H #29 caps 05/22/25 meclizine 25 mg tablet (Dramamine 25 mg PO TID PRN dizziness #20 tabs 05/28/25 Less Drowsy) buspirone 10 mg tablet 10 mg PO BID 3 months #180 tabs 06/02/25 lorazepam 0.5 mg tablet 0.5 mg PO BID PRN anxiety #60 tabs 06/02/25 levofloxacin 750 mg tablet 750 mg PO DAILY 5 days #5 tabs 07/01/25 metronidazole 500 mg tablet 500 mg PO BID 7 days #14 tabs 07/01/25 Allergies Allergy/AdvReac Type Severity Reaction Status Date / Time Codeine Sulfate Allergy Severe Anaphylaxis Verified 07/03/25 12:47 diphenhydramine (From Allergy Intermediate sweats, Verified 07/03/25 12:47 Benadryl) palpitation egg Allergy Intermediate Heartburn Verified 07/03/25 12:47 Sulfa (Sulfonamide Allergy Intermediate RASH Verified 07/03/25 12:47 Antibiotics) (SULFA (SULFONAMIDE ANTIBIOTICS)) cefuroxime AdvReac Intermediate delerium Verified 07/03/25 12:47 ,paranoia Review of Systems Review of Systems: all other systems are reviewed and are negative Constitutional: Reports as per HPI and Reports no additional constitutional complaints Eyes: Reports as per HPI and Reports no additional eye complaints Reports system reviewed and no additional complaints, except as documented Cardiovascular: Reports as per HPI and Reports no additional cardiovascular complaints Respiratory: Reports as per HPI and Reports no additional respiratory complaints Gastrointestinal: Reports as per HPI and Reports no additional gastrointestinal complaints Genitourinary: Reports no additional female genitourinary complaints Musculoskeletal: Reports no additional musculoskeletal complaints Skin/Breast: Reports system reviewed and no additional complaints, except as docu Psychiatric: Reports no additional psychiatric complaints Endocrine: Reports no additional endocrine complaints Hematologic/Lymphatic: Reports no additional hematologic/lymphatic complaints Allergic/Immunologic: Reports no additional allergic/immunologic complaints Reports system reviewed and no additional complaints, except as documented and Reports Abnormal speech present [facility] Past Medical History 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 Surgical History History of open reduction and internal fixation (ORIF) procedure S/P repair of paraesophageal hernia Hx of colonoscopy History of cholecystectomy Family History Family History Father CAD (coronary artery disease) Maternal Grandmother HTN (hypertension), benign Father No problems noted. Mother Hypertension Asthma COPD (chronic obstructive pulmonary disease) Breast cancer, Onset Age: 101 Social History Social History Household Members: Other Household Members Other:: NEIC Housing: House Are you a primary medicare sales executive to a significant other at home: No Do you presently have visiting nurse or other home services: No Alcohol intake: former Patient Tobacco Use Status: Former Tobacco user Tobacco use type: Cigarette Years Smoked: quit greater than 10 years ago Second Hand Smoke Exposure: No Advance Directives: Yes Advance Directives on File: Yes Advance Directives Date on File: 04/07/23 service: No Current occupational status: retired 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 Blood pressure elevated. Heart rate normal. Respiratory rate normal. Temperature normal. Oxygen saturation normal. Appearance: Alert. Oriented X3. No acute distress. Head: Normal external exam. Normocephalic. Atraumatic. No Wyman signs noted. No raccoon eyes noted Eyes: PERRLA. EOMI. Conjunctiva and sclera normal. Eyelids normal. ENT: TM's Normal. Pharynx normal. Uvula midline. Moist mucous membranes. No trismus noted. No drooling noted. No muffled voice noted. Neck: Normal inspection. Neck supple. FROM. No adenopathy. Thyroid Normal. No meningeal signs. No neck mass noted. CVS: Normal heart rate and rhythm. Heart sound normal. No murmurs noted. Pulses normal throughout. Respiratory: No respiratory distress. Painless inspiration. Breath sounds normal. No wheezes/rales/rhonchi noted. Chest nontender. No accessory muscle usage noted or decreased air movement noted. Abdomen: Soft and nontender. Bowel sounds normal in all 4 quadrants. No distention noted. No organomegaly noted. No visible injury noted. Rectal exam: Empty vault no stool to be obtained. Back: No CVA tenderness. Full range of motion noted. Skin: Skin warm and dry. Normal skin color. Normal skin turgor. No rashes/lesions/lacerations noted. Extremities: No lower extremity edema. Extremities exhibit normal range of motion. Extremities nontender. Neuro: Mental status: Normal attention, orientation, memory, and affect. Cranial nerves: Pupils are equal, round and reactive to light, EOMI, visual saucedo are fall, face is symmetric, facial sensations are normal. Motor examination normal muscle tone, strength to 4 extremities. DTR are +2, planter's are flexor. Sensory exam; normal coordination, no ataxia, gait stable. Cerebellar exam: [id number] and [id number]-[id number] is normal. Extrapyramidal system: No tremors, no rigidity with normal facial expressions. Pronator drift not present NIH Stroke Scale Time: 13:19 Level of Consciousness: Alert Level of Consciousness Questions: Answers both questions correctly Level of Consciousness Commands: Performs both tasks correctly Best Gaze: Normal Visual: No visual loss Facial Palsy: Normal Motor Arm (Right): No drift Motor Arm (Left): No drift Motor Leg (Right): No drift Motor Leg (Left): No drift Limb Ataxia: Absent Sensory: Normal Best Language: No aphasia Dysarthia: Normal Extinction and Inattention: No abnormality Score: 0 Course Reevaluation(s) Reevaluation #1: 1. 74-year-old female presented concern of stroke, normal neuro exam, NIH score of 0, no concern of stroke. 2. Recent CT on 07/01 showed colitis presented today with black stool and bloody bowel movements, H&H today is dropping 1 unit from 2 days ago, rectal exam with no stool in the vault to be tested. 3. Will admit for GI monitoring. 4. Essential hypertension, patient currently asymptomatic did not take her amlodipine this morning will give a dose in the emergency department. 5. No sepsis, no septic shock. Time: 15:05 Medical Decision Making Differential Diagnosis Differential Diagnoses: The differential diagnosis associated with the presentation includes ( Colitis, diverticulitis, active GI bleed, severe anemia, electrolyte derangement, CVA, ACS.) Admission/Observation Consideration of admission/observation: Escalation of care including admission/observation considered Consult Healthcare Provider Management of the patient was discussed with: Hospitalist ( Yudy Nicole) Lab Data MDM Lab Attestation statement: I reviewed the patient's lab results. 07/03/25 14:05 07/03/25 14:05 Labs: Lab Results 07/03/25 07/03/25 Range/Units 13:13 14:05 WBC 4.8 (4.8-10.8) X10*3/uL RBC 4.05 L (4.20-5.50) X10*6/uL Hgb 11.6 L (12.0-16.0) g/dl Hct 34.3 L (37.0-47.0) % MCV 84.7 (80.0-98.0) fL MCH 28.6 (27.0-33.0) pg MCHC 33.8 (31.0-35.0) g/dl RDW 18.4 H (11.0-16.0) % Plt Count 223 (160-400) X10*3/uL MPV 8.7 L (9.4-12.3) fL Immature Gran % (Auto) 0.6 H (0.0-0.4) % Neut % (Auto) 65.7 (45-73) % Lymph % (Auto) 19.5 L (20-40) % Cecil % (Auto) 11.3 H (2-11) % Eos % (Auto) 2.3 (0-4) % Baso % (Auto) 0.6 (0-2) % Lymph # (Auto) 0.9 L (1.2-4.9) X10*3/uL Cecil # (Auto) 0.5 (0.1-1.2) X10*3/uL Eos # (Auto) 0.1 (0.0-0.4) X10*3/uL Baso # (Auto) 0.0 (0.0-0.2) X10*3/uL Abs Immat Gran (auto) 0.03 (0.00-0.03) X10*3/uL Absolute Neuts (auto) 3.1 (2.0-8.3) x10*3/uL Absolute Nucleated RBC 0.000 (0.0-0.012) X10*3/uL Nucleated RBC % (auto) 0.0 (0.0-0.2) /100WBC Sodium 142 (135-145) mmol/L Potassium 4.2 (3.3-5.1) mmol/L Chloride 107 (96-108) mmol/L Carbon Dioxide 21 L (22-29) mmol/L Anion Gap 18 (12-20) BUN 5 L (9-16) mg/dL Creatinine 0.70 (0.5-1.4) mg/dL Estim Creat Clear Calc 57.4 Estimated GFR > 60 Random Glucose 89 (60-115) mg/dL Calcium 8.8 (8.4-10.2) mg/dL Total Bilirubin 0.3 (0.0-1.0) mg/dL Direct Bilirubin 0.1 (0.0-0.5) mg/dL AST 35 H (5-31) U/L ALT 13 (0-31) U/L Alkaline Phosphatase 90 (39-117) U/L Troponin I High Sens 4.1 (<3.5-17.0) ng/L B-Natriuretic Peptide 211 H (<100) pg/mL Total Protein 6.5 (6.5-8.0) g/dL Albumin 3.9 (3.5-5.0) g/dL Lipase 12 (8-78) U/L Urine Color Yellow Urine Appearance Clear Urine pH 6.5 (5.0-9.0) Ur Specific [place] <= 1.005 (1.005-1.025) Urine Protein Negative (Neg-Trace) mg/dL Urine Glucose (UA) Negative (Negative) mg/dL Urine Ketones Negative (Negative) mg/dL Urine Blood Negative (Negative) Urine Nitrite Negative (Negative) Ur Leukocyte Esterase Negative (Negative) Stool Occult Blood NEGATIVE (NEGATIVE) Discharge Plan Discharge Clinical Impression: Colitis, Rectal bleed Patient Disposition: Admitted As Inpatient Print Language: Hong Konger
--- NOTE | 2025-07-03 13:18 | PC.NURSE ---
alert and oriented, speaking in full clear sentences. states she has episodes of feeling altered however is unsure if this is related to medications. answering questions appropriately. reports rectal bleeding which has been ongoing, recently seen for same.
--- OUTSIDE RECORDS SUMMARY | 2025-07-03 13:20 | XMS_ITS | Clinical Summary ---
Author Organization [facility] Address [address] [place] [address] [place] [phone] Phone Care Team Providers Care Eligibility Counselor Name Role Phone Unavailable Primary Care Provider Unavailabl e Encounters Date Type Department Care Team Description 05/22/2025 Orders Only [facility] [address] [place] [id number] Homehealth, Interface ProviderMD from Last 3 Months [...] file Medical Devices Not on file Insurance [facility] MEDICARE REPLACEMENT [facility] MEDICARE REPLACEMENT [facility] MEDICARE REPLACEMENT Additional Source Comments The information contained in this document represents components of the legal health record. It is not the complete legal health record.[facility]
[2025-07-03 13:29] LABS: Appearance Urine Clear; Glucose Urine UA Negative (Negative); PH 6.5 (5.0-9.0); Specific Gravity - Urine <= 1.005 (1.005-1.025)
[2025-07-03 14:09] LABS: MANUAL DIFF FLAG NO
[2025-07-03 14:10] LABS: Hematocrit 34.3 % (37.0-47.0); Hemoglobin 11.6 g/dl (12.0-16.0); Imm Gran Abs Auto 0.03 X10*3/uL (0.00-0.03); Imm Gran Pct Auto 0.6 % (0.0-0.4); Lymphocytes Absolute Auto 0.9 X10*3/uL (1.2-4.9); Mean Corpuscular HGB Conc 33.8 g/dl (31.0-35.0); Mean Corpuscular Hemoglobin 28.6 pg (27.0-33.0); Mean Corpuscular Volume 84.7 fL (80.0-98.0); NRBC Abs Auto 0.000 X10*3/uL (0.0-0.012); NRBC Pct Auto 0.0 /100WBC (0.0-0.2); Platelet Count 223 X10*3/uL (160-400); Red Blood Count 4.05 X10*6/uL (4.20-5.50); White Blood Count 4.8 X10*3/uL (4.8-10.8)
[2025-07-03 14:12] LABS: OBS Int Ctl Valid YES; OBS1 NEGATIVE (NEGATIVE)
[2025-07-03 14:31] LABS: Alanine Aminotransferase 13 U/L (0-31); Albumin Level 3.9 g/dL (3.5-5.0); Alkaline Phosphatase 90 U/L (39-117); Anion Gap 18 (12-20); Aspartate Amino Transferase 35 U/L (5-31); B Type Natriuretic Peptide 211 pg/mL (<100); Blood Urea Nitrogen 5 mg/dL (9-16); Calcium 8.8 mg/dL (8.4-10.2); Carbon Dioxide 21 mmol/L (22-29); Chloride 107 mmol/L (96-108); Creatinine Clr Calc Pharmacy 57.4; Estimated Glomerular Filt Rate > 60; Lipase 12 U/L (8-78); Potassium 4.2 mmol/L (3.3-5.1); Sodium 142 mmol/L (135-145); Total Protein 6.5 g/dL (6.5-8.0)
[2025-07-03 14:34] LABS: Troponin-I High Sensitivity 4.1 ng/L (<3.5-17.0)
--- NOTE | 2025-07-03 15:32 | PM.IMHP ---
History of Present Illness Date of Service: 07/03/25 Chief Complaint: abd pain, headache, dark stools 74F PMH mild intermitent asthma, cutaneous lupus, tia, recurrent colitis, mood disorder, Lindsay esophagitis, presented with dark stools, headache. Patient was admitted from 05/17/2025 to 05/22/2025 at [facility] for hematemesis and colitis. Had C diff PCR positive with toxin negative and treated with course of vancomycin. She states on discharge was feeling better but then about 2 weeks prior to presentation started to have worsening diarrhea with dark stools, came to ED on 07/01/[address] positive for colitis and was discharged on Levaquin and Flagyl. Reports worsening of symptoms so came to ED. also reporting headaches and fogginess. In ED systolic blood pressure recorded in 200s though this is of questionable accuracy as patient has been moving around a lot and repeat systolic blood pressure 163. No significant lab abnormalities. 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 Mother Hypertension Asthma COPD (chronic obstructive pulmonary disease) Breast cancer, Onset Age: 101 Surgical History History of open reduction and internal fixation (ORIF) procedure S/P repair of paraesophageal hernia Hx of colonoscopy History of cholecystectomy Social History Household Members: Other Household Members Other:: NEIC Housing: House Are you a primary manager primary care to a significant other at home: No Do you presently have visiting nurse or other home services: No Alcohol intake: former Patient Tobacco Use Status: Former Tobacco user Tobacco use type: Cigarette Years Smoked: quit greater than 10 years ago Second Hand Smoke Exposure: No Advance Directives: Yes Advance Directives on File: Yes Advance Directives Date on File: 04/07/23 service: No Current occupational status: retired 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, 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 Meds Allergies Allergy/AdvReac Type Severity Reaction Status Date / Time Codeine Sulfate Allergy Severe Anaphylaxis Verified 07/03/25 12:47 diphenhydramine (From Allergy Intermediate sweats, Verified 07/03/25 12:47 Benadryl) palpitation egg Allergy Intermediate Heartburn Verified 07/03/25 12:47 Sulfa (Sulfonamide Allergy Intermediate RASH Verified 07/03/25 12:47 Antibiotics) (SULFA (SULFONAMIDE ANTIBIOTICS)) cefuroxime AdvReac Intermediate delerium Verified 07/03/25 12:47 ,paranoia Active Medications: Current Medications Acetaminophen (Acetaminophen 325 Mg Tablet) 650 mg PO Q6H PRN PRN Reason: Pain, Mild 1-3,fever,headache Calcium Carbonate (Calcium Carbonate 750 Mg Tab.Chew) 750 mg PO Q4H PRN PRN Reason: Heartburn Levofloxacin (Levaquin) 500 mg in 100 mls @ 100 mls/hr IV Q24H RAMONA Metronidazole (Flagyl) 500 mg in 100 mls @ 100 mls/hr IV Q12H RAMONA Magnesium Hydroxide (Milk Of Magnesia 30 Ml Oral.Susp) 30 ml PO DAILY PRN PRN Reason: Constipation Melatonin (Melatonin 3 Mg Tablet) 6 mg PO BEDTIME PRN PRN Reason: Insomnia Sodium Chloride (0.9 % Sodium Chloride Flush 3 Ml Syringe) 3 ml IVFLUSH QSHIFT RAMONA Vancomycin HCl (Vancomycin Hcl 125 Mg Capsule) 125 mg PO Q6H [facility] Home Medications ?Medication ?Instructions ?Recorded ?Confirmed ?Last Taken ?Type fluticasone propionate 50 1 spray intranasal DAILY PRN 08/08/20 05/17/25 09/12/24 History mcg/actuation nasal Allergic Symptoms spray,suspension albuterol sulfate 90 mcg/actuation 2 puff inhalation Q6H PRN 10/22/21 05/17/25 09/12/24 History aerosol inhaler (Ventolin HFA) Respiratory Distress acetaminophen 500 mg tablet 1,000 mg PO Q6H PRN Pain 07/24/22 05/17/25 Unknown History (Tylenol Extra Strength) omeprazole 40 mg capsule,delayed 40 mg PO DAILY 05/15/25 05/17/25 Unknown History release potassium chloride 20 mEq 20 meq PO DAILY 05/15/25 05/17/25 Unknown History tablet,extended release(part/cryst) carvedilol 25 mg tablet 25 mg PO BID 05/17/25 05/17/25 Unknown History Physical Exam Vital Signs and Narrative: Vital Signs: Last Vital Signs Temp 98.7 F 07/03/25 14:48 Pulse 71 07/03/25 14:48 Resp 18 07/03/25 14:48 BP 200/82 H 07/03/25 14:48 Pulse Ox 98 07/03/25 14:48 O2 Del Method Room Air 07/03/25 14:48 BMI result Body Mass Index 21.3 General: AO X 3, no acute distress Resp: CTA bilateral, no accessory muscles used CVS: S1,S2,RRR GI: soft, non tender, non distended Neuro: motor grossly intact, alert Psych: appropriate affect, appropriate insight Results Labs 07/03/25 14:05 07/03/25 14:05 Labs: Laboratory Results - last 24 hr 07/03/25 07/03/25 13:13 14:05 MCV 84.7 MCH 28.6 MCHC 33.8 RDW 18.4 H Plt Count 223 MPV 8.7 L Immature Gran % (Auto) 0.6 H Neut % (Auto) 65.7 Lymph % (Auto) 19.5 L [place] % (Auto) 11.3 H Eos % (Auto) 2.3 Baso % (Auto) 0.6 Lymph # (Auto) 0.9 L [place] # (Auto) 0.5 Eos # (Auto) 0.1 Baso # (Auto) 0.0 Abs Immat Gran (auto) 0.03 Absolute Neuts (auto) 3.1 Absolute Nucleated RBC 0.000 Nucleated RBC % (auto) 0.0 Anion Gap 18 Estim Creat Clear Calc 57.4 Estimated GFR > 60 Random Glucose 89 Calcium 8.8 Total Bilirubin 0.3 Direct Bilirubin 0.1 AST 35 H ALT 13 Alkaline Phosphatase 90 B-Natriuretic Peptide 211 H Total Protein 6.5 Albumin 3.9 Lipase 12 Urine Color Yellow Urine Appearance Clear Urine pH 6.5 Ur Specific [place] <= 1.005 Urine Protein Negative Urine Glucose (UA) Negative Urine Ketones Negative Urine Blood Negative Urine Nitrite Negative Ur Leukocyte Esterase Negative Stool Occult Blood NEGATIVE Assessment and Plan (1) Chronic diarrhea: Status: Acute Plan 74F PMH mild intermitent asthma, cutaneous lupus, tia, recurrent colitis, mood disorder, Lindsay esophagitis, presented with dark stools, headache Acute on chronic colitis with dark stools Levofloxacin, Flagyl, GI eval History of C diff colonization doubt active C diff infection but will cover with p.o. vanco Previous pathology showed lymphocytic colitis - nonspecific Headache Check CT head Hypertension Repeat measurement showed systolic blood pressure of 163 Continue amlodipine, carvedilo Mood disorder Ativan, Paxil, buspirone DVT prophylaxis-mechanical due to possible GI bleed Full Code Quality Stroke Does the patient have a stroke diagnosis?: No VTE Prior VTE?: No VTE Risk Level:: Medical - moderate - high VTE Device Contraindication: N/A - Device Ordered VTE Drug Contraindication: Treatment Not Tolerated
[2025-07-03] MEDS: 0.9 % Sodium Chloride Flush 3 ML SYRINGE IVFLUSH ×2 (16:24→20:25)
--- NOTE | 2025-07-03 16:48 | PHA.MEDREC ---
Pharmacy Consult ? Medication Reconciliation Pharmacy has completed the medication reconciliation. Patient unable to name medications on her own, but did say she was taking carvedilol without me asking as well as paroxetine despite claims being outdated. Noted she has extra bottles.
[2025-07-03] MEDS: metroNIDAZOLE/NS 500 MG/100 ML PIGGYBACK 100 MG IV (17:43)
[2025-07-03] MEDS: PARoxetine HCL 40 MG TABLET PO (20:21)
[2025-07-03 22:44] LABS: Troponin-I High Sensitivity 6.2 ng/L (<3.5-17.0)
[2025-07-04] VITALS (7 sets, daily range): BP systolic 135–180; BP diastolic 72–88; PULSE 68–82; RESP 14–18; TEMP 36.5–37.4; O2SAT 96–98
[2025-07-04 00:46] LABS: Troponin-I High Sensitivity 5.0 ng/L (<3.5-17.0)
[2025-07-04 01:15] LABS: CDiff Gene PCR NEGATIVE (Negative)
--- NOTE | 2025-07-04 01:26 | PM.EVENT ---
Event Note Date of Service: 07/04/25 Event Note: 9:53 PM - Patient started to develop 8/10 left-sided chest pain radiating to the neck associated with shortness on breath. Vital signs obtain BP 198/93, HR 70 bpm, oxygen saturation 98 on room air. ECG stat showed no ST or T-wave significant changes. Patient was evaluated and cardiopulmonary exam was unremarkable. She received nitroglycerin 0.4 mg sublingual Q 5 p.r.n. chest pain which significantly improved symptoms. CXR obtained and showed mild bibasilar atelectasis/pneumonitis. Troponin stat 6.2 then 5.0. Per nursing patient was requesting another Ativan which was given. Aspirin was not given as the patient presented to the hospital c/o dark stools. Time Spent With Patient Time: Total time managing care of this patient today ____ minutes.
[2025-07-04] MEDS: metroNIDAZOLE/NS 500 MG/100 ML PIGGYBACK 100 MG IV ×2 (04:52→17:29)
[2025-07-04 06:37] LABS: Hematocrit 32.7 % (37.0-47.0); Hemoglobin 10.8 g/dl (12.0-16.0); Mean Corpuscular HGB Conc 33.0 g/dl (31.0-35.0); Mean Corpuscular Hemoglobin 28.1 pg (27.0-33.0); Mean Corpuscular Volume 85.2 fL (80.0-98.0); NRBC Abs Auto 0.000 X10*3/uL (0.0-0.012); NRBC Pct Auto 0.0 /100WBC (0.0-0.2); Platelet Count 224 X10*3/uL (160-400); Red Blood Count 3.84 X10*6/uL (4.20-5.50); White Blood Count 4.1 X10*3/uL (4.8-10.8)
[2025-07-04 06:49] LABS: INTERNATIONAL NORM RATIO 1.1 (0.9-1.1); Prothrombin Time 12.7 SEC (10.9-12.4)
[2025-07-04 07:06] LABS: Blood Urea Nitrogen 8 mg/dL (9-16); Calcium 9.2 mg/dL (8.4-10.2); Creatinine Clr Calc Pharmacy 55.8; Estimated Glomerular Filt Rate > 60; Magnesium 1.5 mg/dL (1.6-2.6)
[2025-07-04 07:12] LABS: Anion Gap 12 (12-20); Carbon Dioxide 24 mmol/L (22-29); Chloride 109 mmol/L (96-108); Sodium 142 mmol/L (135-145)
[2025-07-04 07:31] LABS: Potassium 2.9 mmol/L (3.3-5.1)
[2025-07-04] MEDS: Magnesium Sulfate/H2O 2 GM/50 ML PIGGYBACK IV (07:43)
[2025-07-04] MEDS: Potassium Chloride ER 20 MEQ TAB.ER.PRT PO (07:45)
[2025-07-04] MEDS: Ferrous Sulfate 324 MG TABLET.DR PO (07:45)
[2025-07-04] MEDS: 0.9 % Sodium Chloride Flush 3 ML SYRINGE IVFLUSH ×3 (07:46→20:14)
[2025-07-04] MEDS: Potassium Chloride ER 20 MEQ TAB.ER.PRT 40 MEQ PO (08:38)
--- NOTE | 2025-07-04 09:13 | P.PNIM_ITS ---
Subjective Subjective Date of Service: 07/04/25 Interval History: ongoing diarrhea Physical Exam 2 Exam: Exam: General: AO X 3, no acute distress Resp: CTA bilateral, no accessory muscles used CVS: S1,S2,RRR GI: soft, non tender, non distended Neuro: motor grossly intact, alert Psych: appropriate affect, appropriate insight Vital Signs: Vital Signs: Last Vital Signs Temp 97.8 F 07/04/25 07:17 Pulse 72 07/04/25 07:17 Resp 14 07/04/25 07:17 BP 145/75 H 07/04/25 07:17 Pulse Ox 96 07/04/25 07:17 O2 Del Method Room Air 07/04/25 07:17 BMI result Body Mass Index 22.0 Objective Data Active Medications Acetaminophen (Acetaminophen 325 Mg Tablet) 650 mg PO Q6H PRN PRN Reason: Pain, Mild 1-3,fever,headache Last Admin: 07/03/25 16:22 Dose: 650 mg Documented By: JOSE J Albuterol Sulfate (Albuterol Sulfate 90 Mcg 8 Gm Inhaler) 2 puff INHALE Q6H PRN PRN Reason: Respiratory Distress Buspirone HCl (Buspirone Hcl 10 Mg Tablet) 10 mg PO BID [facility] Last Admin: 07/04/25 07:44 Dose: 10 mg Documented By: SIDNEY Calcium Carbonate (Calcium Carbonate 750 Mg Tab.Chew) 750 mg PO Q4H PRN PRN Reason: Heartburn Carvedilol (Carvedilol 25 Mg Tablet) 25 mg PO BID [facility]; Protocol Last Admin: 07/04/25 07:45 Dose: 25 mg Documented By: SIDNEY Ferrous Sulfate (Ferrous Sulfate 324 Mg Tablet.Dr) 324 mg PO DAILY [facility] Last Admin: 07/04/25 07:45 Dose: 324 mg Documented By: SIDNEY Hydroxyzine HCl (Hydroxyzine Hcl 10 Mg Tablet) 10 mg PO BEDTIME [facility] Last Admin: 07/03/25 20:21 Dose: 10 mg Documented By: IMELDA Levofloxacin (Levaquin) 500 mg in 100 mls @ 100 mls/hr IV Q24H [facility] Last Infusion: 07/03/25 17:38 Dose: Infused Documented By: VERENA Metronidazole (Flagyl) 500 mg in 100 mls @ 100 mls/hr IV Q12H [facility] Last Infusion: 07/04/25 05:57 Dose: Infused Documented By: IMELDA Lorazepam (Lorazepam 0.5 Mg Tablet) 0.5 mg PO BID PRN PRN Reason: Anxiety Last Admin: 07/03/25 20:21 Dose: 0.5 mg Documented By: IMELDA Magnesium Hydroxide (Milk Of Magnesia 30 Ml Oral.Susp) 30 ml PO DAILY PRN PRN Reason: Constipation Magnesium Oxide (Magnesium Oxide 400 Mg Tablet) 400 mg PO DAILY [facility] Last Admin: 07/04/25 07:45 Dose: 400 mg Documented By: SIDNEY Meclizine HCl (Meclizine Hcl 25 Mg Tablet) 25 mg PO TID PRN PRN Reason: dizziness Melatonin (Melatonin 3 Mg Tablet) 6 mg PO BEDTIME PRN PRN Reason: Insomnia Nitroglycerin (Nitroglycerin 0.4 Mg Tab.Subl) 0.4 mg SUBLINGUAL Q5MX3 PRN PRN Reason: Chest Pain Last Admin: 07/03/25 22:18 Dose: 0.4 mg Documented By: IMELDA Omeprazole (Omeprazole 40 Mg Capsule.Dr) 40 mg PO DAILY@0630 [facility] Last Admin: 07/04/25 04:58 Dose: 40 mg Documented By: IMELDA Paroxetine HCl (Paroxetine Hcl 40 Mg Tablet) 40 mg PO BEDTIME [facility] Last Admin: 07/03/25 20:21 Dose: 40 mg Documented By: IMELDA Potassium Chloride (Potassium Chloride Er 20 Meq Tab.Er.Prt) 20 meq PO DAILY [facility] Last Admin: 07/04/25 07:45 Dose: 20 meq Documented By: SIDNEY Sodium Chloride (0.9 % Sodium Chloride Flush 3 Ml Syringe) 3 ml IVFLUSH QSHIFT [facility] Last Admin: 07/04/25 07:46 Dose: 3 ml Documented By: SIDNEY Vancomycin HCl (Vancomycin Hcl 125 Mg Capsule) 125 mg PO Q6H [facility] Last Admin: 07/04/25 08:38 Dose: 125 mg Documented By: SIDNEY Vitamin D (Cholecalciferol (Vitamin D3) 25 Mcg Tablet) 25 mcg PO DAILY [facility] Last Admin: 07/04/25 07:45 Dose: 25 mcg Documented By: SIDNEY Labs 07/04/25 06:07 07/04/25 06:07 Labs: Laboratory Results - last 24 hr 09/01/25 09/01/25 09/01/25 13:13 14:05 16:17 MCV 84.7 MCH 28.6 MCHC 33.8 RDW 18.4 H Plt Count 223 MPV 8.7 L Immature Gran % (Auto) 0.6 H Neut % (Auto) 65.7 Lymph % (Auto) 19.5 L [place] % (Auto) 11.3 H Eos % (Auto) 2.3 Baso % (Auto) 0.6 Lymph # (Auto) 0.9 L [place] # (Auto) 0.5 Eos # (Auto) 0.1 Baso # (Auto) 0.0 Abs Immat Gran (auto) 0.03 Absolute Neuts (auto) 3.1 Absolute Nucleated RBC 0.000 Nucleated RBC % (auto) 0.0 PT INR Anion Gap 18 Estim Creat Clear Calc 57.4 Estimated GFR > 60 Random Glucose 89 Calcium 8.8 Magnesium Total Bilirubin 0.3 Direct Bilirubin 0.1 AST 35 H ALT 13 Alkaline Phosphatase 90 B-Natriuretic Peptide 211 H Total Protein 6.5 Albumin 3.9 Lipase 12 Urine Color Yellow Urine Appearance Clear Urine pH 6.5 Ur Specific [place] <= 1.005 Urine Protein Negative Urine Glucose (UA) Negative Urine Ketones Negative Urine Blood Negative Urine Nitrite Negative Ur Leukocyte Esterase Negative Stool Occult Blood NEGATIVE C. difficile Tox B Gene Blood Type B Positive Antibody Screen NEGATIVE 07/03/25 07/04/25 23:50 06:07 MCV 85.2 MCH 28.1 MCHC 33.0 RDW 18.3 H Plt Count 224 MPV 9.0 L Immature Gran % (Auto) Neut % (Auto) Lymph % (Auto) [place] % (Auto) Eos % (Auto) Baso % (Auto) Lymph # (Auto) [place] # (Auto) Eos # (Auto) Baso # (Auto) Abs Immat Gran (auto) Absolute Neuts (auto) Absolute Nucleated RBC 0.000 Nucleated RBC % (auto) 0.0 PT 12.7 H INR 1.1 Anion Gap 12 Estim Creat Clear Calc 55.8 Estimated GFR > 60 Random Glucose 94 Calcium 9.2 Magnesium 1.5 L Total Bilirubin Direct Bilirubin AST ALT Alkaline Phosphatase B-Natriuretic Peptide Total Protein Albumin Lipase Urine Color Urine Appearance Urine pH Ur Specific [place] Urine Protein Urine Glucose (UA) Urine Ketones Urine Blood Urine Nitrite Ur Leukocyte Esterase Stool Occult Blood C. difficile Tox B Gene NEGATIVE Blood Type Antibody Screen Assessment and Plan (1) Generalized anxiety disorder: Status: Acute Plan 74F PMH mild intermitent asthma, cutaneous lupus, tia, recurrent colitis, mood disorder, Lindsay esophagitis, presented with dark stools, headache Acute on chronic colitis with dark stools Levofloxacin, Flagyl, GI eval History of C diff colonization doubt active C diff infection but will cover with p.o. vanco - cdif pcr now negative Previous pathology showed lymphocytic colitis - nonspecific Headache Check CT head - no acute findings old lacunar infarcts Hypertension improving Continue amlodipine, carvedilol Mood disorder Ativan, Paxil, buspirone acute hypokalemia replace and monitor acute hypomagnesemia replace and monitor DVT prophylaxis-mechanical due to possible GI bleed Full Code reason for continued hospitalization:hypoklaemia, gi eval Quality Stroke Does the patient have a stroke diagnosis?: No VTE Prior VTE?: No VTE Risk Level:: Medical - moderate - high VTE Device Contraindication: N/A - Device Ordered VTE Drug Contraindication: Treatment Not Tolerated
--- NOTE | 2025-07-04 09:52 | MHC.CM.PN ---
Addendum entered by Ailyn Pal 07/04/25 14:56: PT CHANGED TO I/P STATUS. IMM DELIVERED. Original Note: [facility]ORTES DELIVERED. PT LIVES ALONE ON FIRST FLOOR OF 2 FAMILY HOME, NIECE LIVES UPSTAIRS AND ASSISTS WITH LAUNDRY AND COOKING. PT USES [facility] FOR MOST MOBILITY AND HAS A WALKER PRN. NO SERVICES BUT WOULD LIKE TO PURSUE MORE HELP IN THE HOME. REFERRAL TO [facility] SENT. + HCP ON FILE AND VERIFIED. PCP DR. ROBB DP: HOME, NO SERVICES IS THE GOAL. PT'S NIECE WILL TRANSPORT. CM WILL CONTINUE TO FOLLOW FOR ANY CHANGE TO DC PLAN/NEEDS.
[2025-07-04 09:58] LABS: E. coli EAEC Not Detected (Not Detect.); E. coli EPEC Not Detected (Not Detect.); E. coli ETEC Not Detected (Not Detect.); E. coli STEC Not Detected (Not Detect.); Shigella sp./EIEC Not Detected (Not Detect.)
--- NOTE | 2025-07-04 11:54 | P.CNGI_ITS ---
History of Present Illness Data of Consult Service Date: 07/04/25 Primary Care Provider: Arnulfo Villalba MD HPI Reason for consult: diarrhea 74-year-old female with a PMH significant for mild intermittent?asthma, HLD, HTN, cutaneous lupus, TIA, vertigo, GERD, recurrent colitis, and anxiety who I am seeing for colitis Patient presented with diarrheal stool, and nausea for 1 week. She denies abdominal pain. Denies shortness or breath or difficulty breathing. No chest pain/pressure, palpitations. No melena or rectal bleeding. She came to ED on 07/01/[address] positive for sigmoid colitis and was discharged on Levaquin and Flagyl but she is uncertain how well these medications were helping her. She also was admitted from 05/17/2025 to 05/22/2025 at [facility] with c diff colitis. This time around stool PCR and c diff are negative. she admits the diarrhea is less now as compared to last few days. Denies sick contacts, no one else sick at home, no ingestion of contaminated foods. denies use of nsaids Other data: Colonoscopy/EGD 04/27/25 esophagitis-laita tubular adenoma hiatal hernia diverticulosis, lymphocytic colitis IMAGING: CT 07/01/25 stranding and thickening of colon in sigmoid and rectal areas LABS: mild anemia, and low K and Mag Review of Systems 2 Review of Systems: Constitutional : No Weight loss, No Fever, No Chills ENT/Mouth : No sore throat, No Rhinorrhea Eyes: No Swelling, No Redness Cardiovascular : No Chest Pain, No SOB, No Edema Respiratory : No Cough, No Sputum, No Wheezing Gastrointestinal : see HPI Genitourinary : NO Dysuria, No Urinary Frequency, No Hematuria, No Urgency Musculoskeletal : no joint pain, No Myalgias, No Joint Swelling Skin : No Skin Lesions, No rash Neuro : No Weakness, No Numbness, No Dizziness, No Headache Psych : No Anxiety/Panic, No Depression Heme/Lymph: No Bruising, No Lymphadenopathy Endocrine : No Polyuria, No Polydipsia All other systems reviewed and are negative. 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 Mother Hypertension Asthma COPD (chronic obstructive pulmonary disease) Breast cancer, Onset Age: 101 Surgical History Surgical History History of open reduction and internal fixation (ORIF) procedure S/P repair of paraesophageal hernia Hx of colonoscopy History of cholecystectomy Social History Social History Household Members: Other Household Members Other:: [facility] Housing: House Are you a primary healthcare or medical to a significant other at home: No Do you presently have visiting nurse or other home services: No Alcohol intake: former Patient Tobacco Use Status: Former Tobacco user Tobacco use type: Cigarette Years Smoked: quit greater than 10 years ago Smoked in Last 30 Days: No Patient Interested in Nicotine Replacement: No Patient Given Instructions on How to Stop Smoking: No Second Hand Smoke Exposure: No Currently Displaying Signs/Symptoms of Drug Intoxication Withdrawal: No Advance Directives: Yes Advance Directives on File: Yes Advance Directives Date on File: 04/07/23 service: No Current occupational status: retired 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, 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 Meds Allergies Allergy/AdvReac Type Severity Reaction Status Date / Time Codeine Sulfate Allergy Severe Anaphylaxis Verified 07/03/25 12:47 diphenhydramine (From Allergy Intermediate sweats, Verified 07/03/25 12:47 Benadryl) palpitation egg Allergy Intermediate Heartburn Verified 07/03/25 12:47 Sulfa (Sulfonamide Allergy Intermediate RASH Verified 07/03/25 12:47 Antibiotics) (SULFA (SULFONAMIDE ANTIBIOTICS)) cefuroxime AdvReac Intermediate delerium Verified 07/03/25 12:47 ,paranoia Active Medications: Current Medications Acetaminophen (Acetaminophen 325 Mg Tablet) 650 mg PO Q6H PRN PRN Reason: Pain, Mild 1-3,fever,headache Last Admin: 07/03/25 16:22 Dose: 650 mg Albuterol Sulfate (Albuterol Sulfate 90 Mcg 8 Gm Inhaler) 2 puff INHALE Q6H PRN PRN Reason: Respiratory Distress Buspirone HCl (Buspirone Hcl 10 Mg Tablet) 10 mg PO BID [facility] Last Admin: 07/04/25 07:44 Dose: 10 mg Calcium Carbonate (Calcium Carbonate 750 Mg Tab.Chew) 750 mg PO Q4H PRN PRN Reason: Heartburn Carvedilol (Carvedilol 25 Mg Tablet) 25 mg PO BID [facility]; Protocol Last Admin: 07/04/25 07:45 Dose: 25 mg Ferrous Sulfate (Ferrous Sulfate 324 Mg Tablet.) 324 mg PO DAILY [facility] Last Admin: 07/04/25 07:45 Dose: 324 mg Hydroxyzine HCl (Hydroxyzine Hcl 10 Mg Tablet) 10 mg PO BEDTIME [facility] Last Admin: 07/03/25 20:21 Dose: 10 mg Levofloxacin (Levaquin) 500 mg in 100 mls @ 100 mls/hr IV Q24H [facility] Last Infusion: 07/03/25 17:38 Dose: Infused Metronidazole (Flagyl) 500 mg in 100 mls @ 100 mls/hr IV Q12H [facility] Last Infusion: 07/04/25 05:57 Dose: Infused Lorazepam (Lorazepam 0.5 Mg Tablet) 0.5 mg PO BID PRN PRN Reason: Anxiety Last Admin: 07/03/25 20:21 Dose: 0.5 mg Magnesium Hydroxide (Milk Of Magnesia 30 Ml Oral.Susp) 30 ml PO DAILY PRN PRN Reason: Constipation Magnesium Oxide (Magnesium Oxide 400 Mg Tablet) 400 mg PO DAILY [facility] Last Admin: 07/04/25 07:45 Dose: 400 mg Meclizine HCl (Meclizine Hcl 25 Mg Tablet) 25 mg PO TID PRN PRN Reason: dizziness Melatonin (Melatonin 3 Mg Tablet) 6 mg PO BEDTIME PRN PRN Reason: Insomnia Nitroglycerin (Nitroglycerin 0.4 Mg Tab.Subl) 0.4 mg SUBLINGUAL Q5MX3 PRN PRN Reason: Chest Pain Last Admin: 07/03/25 22:18 Dose: 0.4 mg Omeprazole (Omeprazole 40 Mg Capsule.Dr) 40 mg PO DAILY@0630 [facility] Last Admin: 07/04/25 04:58 Dose: 40 mg Paroxetine HCl (Paroxetine Hcl 40 Mg Tablet) 40 mg PO BEDTIME [facility] Last Admin: 07/03/25 20:21 Dose: 40 mg Potassium Chloride (Potassium Chloride Er 20 Meq Tab.Er.Prt) 20 meq PO DAILY [facility] Last Admin: 07/04/25 07:45 Dose: 20 meq Sodium Chloride (0.9 % Sodium Chloride Flush 3 Ml Syringe) 3 ml IVFLUSH QSHIFT [facility] Last Admin: 07/04/25 07:46 Dose: 3 ml Vitamin D (Cholecalciferol (Vitamin D3) 25 Mcg Tablet) 25 mcg PO DAILY [facility] Last Admin: 07/04/25 07:45 Dose: 25 mcg Home Medications ?Medication ?Instructions ?Recorded ?Confirmed ?Last Taken ?Type albuterol sulfate 90 mcg/actuation 2 puff inhalation Q 6H PRN 10/22/21 07/03/25 09/12/24 History aerosol inhaler (Ventolin HFA) Respiratory Distress omeprazole 40 mg capsule,delayed 40 mg PO DAILY@0630 0 05/15/25 07/03/25 07/03/25 History release potassium chloride 20 mEq 20 meq PO DAILY 05/15/2511/2607/03/25 History tablet,extended release(part/cryst) carvedilol 25 mg tablet 25 mg PO BID 05/17/2507/03/25 History cholecalciferol (vitamin D3) 25 25 mcg PO DAILY 07/03/25 07/03/25 History mcg (1,000 unit) tablet hydroxyzine HCl 10 mg tablet 10 mg PO BEDTIME 07/03/25 07/03/25 Unknown History magnesium oxide 400 mg PO DAILY 07/03/2511/2607/03/25 History Physical Exam 2 Exam: Exam: EXAM: GENERAL: The patient is well developed and nontoxic. VITAL SIGNS:see workflow HEENT: Nonicteric sclerae, PERRLA, EOMI. Oropharynx clear. Moist mucous membranes. Conjunctivae appear well perfused. No thyroid mass. CHEST: Chest wall is nontender. HEART: Regular rate and rhythm without murmurs. LUNGS: Clear to auscultation bilaterally. ABDOMEN: Soft, positive bowel sounds, nontender, no organomegaly.no flank tenderness SKIN: No rash, no excessive bruising, petechiae, or purpura. NEUROLOGIC: Cranial nerves II-XII intact without motor/sensory deficit. Psych: normal affect Vital Signs: Vital Signs: Last Vital Signs Temp 98.8 F 07/04/25 11:48 Pulse 68 07/04/25 11:48 Resp 16 07/04/25 11:48 BP 163/74 H 07/04/25 11:48 Pulse Ox 96 07/04/25 11:48 O2 Del Method Room Air 07/04/25 11:48 BMI result Body Mass Index 22.0 Results Labs 07/04/25 06:07 07/04/25 06:07 Labs: Short CBC 07/03/25 07/04/25 Range/Units 14:05 06:07 WBC 4.8 4.1 L (4.8-10.8) X10*3/uL Hgb 11.6 L 10.8 L (12.0-16.0) g/dl Hct 34.3 L 32.7 L (37.0-47.0) % Plt Count 223 224 (160-400) X10*3/uL BMP 07/03/25 07/04/25 14:05 06:07 Sodium 142 142 Potassium 4.2 2.9 L* D Chloride 107 109 H Carbon Dioxide 21 L 24 BUN 5 L 8 L Creatinine 0.70 0.72 Calcium 8.8 9.2 Liver Function 07/03/25 Range/Units 14:05 Total Bilirubin 0.3 (0.0-1.0) mg/dL Direct Bilirubin 0.1 (0.0-0.5) mg/dL AST 35 H (5-31) U/L ALT 13 (0-31) U/L Alkaline Phosphatase 90 (39-117) U/L Albumin 3.9 (3.5-5.0) g/dL Urine 07/03/25 Range/Units 13:13 Urine Color Yellow Urine Appearance Clear Urine pH 6.5 (5.0-9.0) Ur Specific [place] <= 1.005 (1.005-1.025) Urine Protein Negative (Neg-Trace) mg/dL Urine Glucose (UA) Negative (Negative) mg/dL Imaging CT scan - abdomen: Attestation: I personally reviewed and interpreted this imaging study as follows: (stranding of left colon and rectum) Assessment and Plan (1) Colitis: Status: Acute Plan 1/ Infectious vs inflammatory colitis, diverticulitis, seems to be responding to ABX and stool o/p coming down. Also has hx of lymphocytic colitis as well PLAN: 1/ Cont to monitor, if sx persist then sigmoidoscopy on 2/ complete ABX course, can stop vanc as C diff PCR is neg this time Procedures Date of Service Date of Service: 07/04/25
[2025-07-04] MEDS: PARoxetine HCL 40 MG TABLET PO (20:11)
[2025-07-05 03:12] VITALS: BP 169/80; PULSE 74; RESP 18; TEMP 37.2; O2SAT 95
[2025-07-05] MEDS: metroNIDAZOLE/NS 500 MG/100 ML PIGGYBACK 100 MG IV ×2 (05:01→16:58)
[2025-07-05 06:02] LABS: Hematocrit 31.3 % (37.0-47.0); Hemoglobin 10.5 g/dl (12.0-16.0); Mean Corpuscular HGB Conc 33.5 g/dl (31.0-35.0); Mean Corpuscular Hemoglobin 28.9 pg (27.0-33.0); Mean Corpuscular Volume 86.2 fL (80.0-98.0); NRBC Abs Auto 0.000 X10*3/uL (0.0-0.012); NRBC Pct Auto 0.0 /100WBC (0.0-0.2); Platelet Count 202 X10*3/uL (160-400); Red Blood Count 3.63 X10*6/uL (4.20-5.50); White Blood Count 4.9 X10*3/uL (4.8-10.8)
[2025-07-05 06:15] LABS: Anion Gap 11 (12-20); Blood Urea Nitrogen 14 mg/dL (9-16); Calcium 8.4 mg/dL (8.4-10.2); Carbon Dioxide 24 mmol/L (22-29); Chloride 110 mmol/L (96-108); Creatinine Clr Calc Pharmacy 46.8; Estimated Glomerular Filt Rate > 60; Potassium 3.9 mmol/L (3.3-5.1); Sodium 141 mmol/L (135-145)
[2025-07-05 07:06] VITALS: BP 182/81; PULSE 68; RESP 20; TEMP 36.6; O2SAT 97
[2025-07-05] MEDS: Potassium Chloride ER 20 MEQ TAB.ER.PRT PO (07:24)
[2025-07-05] MEDS: Ferrous Sulfate 324 MG TABLET.DR PO (07:24)
[2025-07-05] MEDS: 0.9 % Sodium Chloride Flush 3 ML SYRINGE IVFLUSH ×3 (07:25→20:17)
[2025-07-05 11:05] VITALS: BP 138/66; PULSE 73; RESP 18; TEMP 36.8; O2SAT 97
--- NOTE | 2025-07-05 12:09 | MHC.CM.PN ---
Per MD rounds not medically cleared for dc at this time. CM will continue to follow.
[2025-07-05 15:13] VITALS: BP 174/77; PULSE 72; RESP 20; TEMP 36.9; O2SAT 96
--- NOTE | 2025-07-05 16:48 | P.PNGI_ITS ---
Subjective Subjective Date of Service: 07/05/25 Interval History: pt is feeling much better, diarrhea is much less but still present appetite is good crp was negative Critical Care Time (minutes): 0 Physical Exam 2 Exam: Exam: EXAM: GENERAL: The patient is well developed and nontoxic. VITAL SIGNS:see workflow HEENT: Nonicteric sclerae, PERRLA, EOMI. Oropharynx clear. Moist mucous membranes. Conjunctivae appear well perfused. No thyroid mass. CHEST: Chest wall is nontender. HEART: Regular rate and rhythm without murmurs. LUNGS: Clear to auscultation bilaterally. ABDOMEN: Soft, positive bowel sounds, nontender, no organomegaly.no flank tenderness SKIN: No rash, no excessive bruising, petechiae, or purpura. NEUROLOGIC: Cranial nerves II-XII intact without motor/sensory deficit. Psych: normal affect Vital Signs: Vital Signs: Last Vital Signs Temp 98.4 F 07/05/25 15:13 Pulse 72 07/05/25 15:13 Resp 20 07/05/25 15:13 BP 174/77 H 07/05/25 15:13 Pulse Ox 96 07/05/25 15:13 O2 Del Method Room Air 07/05/25 15:13 BMI result Body Mass Index 22.0 Objective Data Labs 07/05/25 05:48 07/05/25 05:48 Labs: Laboratory Results - last 24 hr 07/05/25 05:48 WBC 4.9 RBC 3.63 L Hgb 10.5 L Hct 31.3 L MCV 86.2 MCH 28.9 MCHC 33.5 RDW 18.6 H Plt Count 202 MPV 8.9 L Absolute Nucleated RBC 0.000 Nucleated RBC % (auto) 0.0 Sodium 141 Potassium 3.9 D Chloride 110 H Carbon Dioxide 24 Anion Gap 11 L BUN 14 Creatinine 0.86 Estim Creat Clear Calc 46.8 Estimated GFR > 60 Random Glucose 103 Calcium 8.4 D C-Reactive Protein < 0.10 Microbiology Microbiology Results: Microbiology 07/03/25 16:17 Blood - Venous Blood Culture - Preliminary No growth after 24 hours. 07/03/25 16:17 Blood - Venous Blood Culture - Preliminary No growth after 24 hours. Procedures Date of Service Date of Service: 07/05/25 Progress Note: A&P Assessment and plan (1) Colitis: Status: Acute Plan 1/ colitis possibly infectious, maybe assciated with diverticular disease, improved, with neg CRP PLAN: 1/ finsih ABX course, can use imodium prn if needed, cont with probiotics at home 2/ o/p f/u Time Spent With Patient Time: Total time managing care of this patient today ____ minutes. Quality Stroke Does the patient have a stroke diagnosis?: No VTE Prior VTE?: No VTE Risk Level:: Medical - moderate - high VTE Device Contraindication: N/A - Device Ordered VTE Drug Contraindication: Treatment Not Tolerated
--- NOTE | 2025-07-05 17:07 | HO.PM.IMPN ---
Subjective Subjective Date of Service: 07/05/25 Interval History: diarrhae Review of Systems abd pain /diarrhae somewhat improving no fevers Review of Systems: Yes all other systems are reviewed and are negative Physical Exam Exam: Exam: General: AO X 3, no acute distress Resp: CTA bilateral, no accessory muscles used CVS: S1,S2,RRR GI: soft, non tender, non distended Neuro: motor grossly intact, alert Psych: appropriate affect. Vital Signs: Vital Signs: Last Vital Signs Temp 98.4 F 07/05/25 15:13 Pulse 72 07/05/25 15:13 Resp 20 07/05/25 15:13 BP 174/77 H 07/05/25 15:13 Pulse Ox 96 07/05/25 15:13 O2 Del Method Room Air 07/05/25 15:13 BMI result Body Mass Index 22.0 Objective Data Active Medications Acetaminophen (Acetaminophen 325 Mg Tablet) 650 mg PO Q6H PRN PRN Reason: Pain, Mild 1-3,fever,headache Last Admin: 07/04/25 15:59 Dose: 650 mg Documented By: SIDNEY Albuterol Sulfate (Albuterol Sulfate 90 Mcg 8 Gm Inhaler) 2 puff INHALE Q6H PRN PRN Reason: Respiratory Distress Buspirone HCl (Buspirone Hcl 10 Mg Tablet) 10 mg PO BID [facility] Last Admin: 07/05/25 07:25 Dose: 10 mg Documented By: SHANNON Calcium Carbonate (Calcium Carbonate 750 Mg Tab.Chew) 750 mg PO Q4H PRN PRN Reason: Heartburn Carvedilol (Carvedilol 25 Mg Tablet) 25 mg PO BID [facility]; Protocol Last Admin: 07/05/25 07:24 Dose: 25 mg Documented By: SHANNON Ferrous Sulfate (Ferrous Sulfate 324 Mg Tablet.) 324 mg PO DAILY [facility] Last Admin: 07/05/25 07:24 Dose: 324 mg Documented By: SHANNON Hydroxyzine HCl (Hydroxyzine Hcl 10 Mg Tablet) 10 mg PO BEDTIME [facility] Last Admin: 07/04/25 20:12 Dose: 10 mg Documented By: IMELDA Levofloxacin (Levaquin) 500 mg in 100 mls @ 100 mls/hr IV Q24H [facility] Last Infusion: 07/05/25 16:57 Dose: Infused Documented By: SHANNON Metronidazole (Flagyl) 500 mg in 100 mls @ 100 mls/hr IV Q12H [facility] Last Admin: 07/05/25 16:58 Dose: 100 mls/hr Documented By: SHANNON Lorazepam (Lorazepam 0.5 Mg Tablet) 0.5 mg PO BID PRN PRN Reason: Anxiety Last Admin: 07/05/25 13:02 Dose: 0.5 mg Documented By: SHANNON Magnesium Hydroxide (Milk Of Magnesia 30 Ml Oral.Susp) 30 ml PO DAILY PRN PRN Reason: Constipation Magnesium Oxide (Magnesium Oxide 400 Mg Tablet) 400 mg PO DAILY [facility] Last Admin: 07/05/25 07:24 Dose: 400 mg Documented By: SHANNON Meclizine HCl (Meclizine Hcl 25 Mg Tablet) 25 mg PO TID PRN PRN Reason: dizziness Melatonin (Melatonin 3 Mg Tablet) 6 mg PO BEDTIME PRN PRN Reason: Insomnia Nitroglycerin (Nitroglycerin 0.4 Mg Tab.Subl) 0.4 mg SUBLINGUAL Q5MX3 PRN PRN Reason: Chest Pain Last Admin: 07/03/25 22:18 Dose: 0.4 mg Documented By: IMELDA Omeprazole (Omeprazole 40 Mg Capsule.Dr) 40 mg PO DAILY@0630 [facility] Last Admin: 07/05/25 05:01 Dose: 40 mg Documented By: IMELDA Paroxetine HCl (Paroxetine Hcl 40 Mg Tablet) 40 mg PO BEDTIME [facility] Last Admin: 07/04/25 20:11 Dose: 40 mg Documented By: IMELDA Potassium Chloride (Potassium Chloride Er 20 Meq Tab.Er.Prt) 20 meq PO DAILY [facility] Last Admin: 07/05/25 07:24 Dose: 20 meq Documented By: SHANNON Sodium Chloride (0.9 % Sodium Chloride Flush 3 Ml Syringe) 3 ml IVFLUSH QSHIFT [facility] Last Admin: 07/05/25 15:25 Dose: 3 ml Documented By: SHANNON Vitamin D (Cholecalciferol (Vitamin D3) 25 Mcg Tablet) 25 mcg PO DAILY [facility] Last Admin: 07/05/25 07:25 Dose: 25 mcg Documented By: SHANNON Labs 07/05/25 05:48 07/05/25 05:48 Labs: Laboratory Results - last 24 hr 07/05/25 05:48 MCV 86.2 MCH 28.9 MCHC 33.5 RDW 18.6 H Plt Count 202 MPV 8.9 L Absolute Nucleated RBC 0.000 Nucleated RBC % (auto) 0.0 Anion Gap 11 L Estim Creat Clear Calc 46.8 Estimated GFR > 60 Random Glucose 103 Calcium 8.4 D C-Reactive Protein < 0.10 Microbiology Microbiology Results: Microbiology 07/03/25 16:17 Blood Culture - Preliminary Blood - Venous No growth after 24 hours. 07/03/25 16:17 Blood Culture - Preliminary Blood - Venous No growth after 24 hours. Assessment and Plan (1) Generalized anxiety disorder: Status: Acute Plan 74F PMH mild intermitent asthma, cutaneous lupus, tia, recurrent colitis, mood disorder, Lindsay esophagitis, presented with dark stools, headache Acute on chronic colitis with dark stools Levofloxacin, Flagyl, GI eval History of C diff colonization doubt active C diff infection but will cover with p.o. vanco - cdif pcr now negative Previous pathology showed lymphocytic colitis - nonspecific GI- Cont to monitor, if sx persist then sigmoidoscopy on Headache Check CT head - no acute findings old lacunar infarcts Hypertension improving Continue amlodipine, carvedilol Mood disorder Ativan, Paxil, buspirone acute hypokalemia replace and monitor acute hypomagnesemia replace and monitor DVT prophylaxis-mechanical due to possible GI bleed Full Code reason for continued hospitalization:hypoklaemia, gi eval Quality Stroke Does the patient have a stroke diagnosis?: No VTE Prior VTE?: No VTE Risk Level:: Medical - moderate - high VTE Device Contraindication: N/A - Device Ordered VTE Drug Contraindication: Treatment Not Tolerated
[2025-07-05 19:36] VITALS: BP 133/65; PULSE 89; RESP 18; TEMP 37; O2SAT 96
[2025-07-05] MEDS: PARoxetine HCL 40 MG TABLET PO (20:17)
[2025-07-05 23:55] VITALS: BP 170/76; PULSE 81; RESP 19; TEMP 36.7; O2SAT 97
[2025-07-06 04:00] VITALS: BP 178/84; PULSE 82; RESP 18; TEMP 36.8; O2SAT 97
[2025-07-06] MEDS: metroNIDAZOLE/NS 500 MG/100 ML PIGGYBACK 100 MG IV (04:06)
[2025-07-06 07:44] VITALS: BP 178/83; PULSE 74; RESP 18; TEMP 36.6; O2SAT 94
[2025-07-06] MEDS: Potassium Chloride ER 20 MEQ TAB.ER.PRT PO (08:01)
[2025-07-06] MEDS: Ferrous Sulfate 324 MG TABLET.DR PO (08:01)
[2025-07-06] MEDS: 0.9 % Sodium Chloride Flush 3 ML SYRINGE IVFLUSH (08:02)
[2025-07-06 09:38] VITALS: BP 144/73
[2025-07-06 11:26] VITALS: BP 155/83; PULSE 75; RESP 18; TEMP 36.8; O2SAT 96
--- NOTE | 2025-07-06 14:49 | MHC.CM.PN ---
Patient medically cleared for dc home self care via private transport
--- NOTE | 2025-07-06 14:51 | P.DS_ITS ---
DS: Providers Provider Date of Service: 07/06/25 Date of admission: 07/04/25 10:00 Date of discharge: 07/06/25 Primary care physician: Arnulfo Villalba MD Consults: 07/03/25 16:00 Consult to Gastroenterology Routine Consulting Provider: [facility] Reason for consultation: recurrent colitis Attending physician on discharge: Bessie Ashraf Discharging clinician: Bessie Ashraf DS: Diagnosis Discharge Diagnosis (1) Generalized anxiety disorder: Status: Acute DS: Summary Hospital Course Hospital Course: HPI:74F PMH mild intermitent asthma, cutaneous lupus, tia, recurrent colitis, mood disorder, Lindsay esophagitis, presented with dark stools, headache. Patient was admitted from 05/17/2025 to 05/22/2025 at [facility] for hematemesis and colitis. Had C diff PCR positive with toxin negative and treated with course of vancomycin. She states on discharge was feeling better but then about 2 weeks prior to presentation started to have worsening diarrhea with dark stools, came to ED on 07/01/[address] positive for colitis and was discharged on Levaquin and Flagyl. Reports worsening of symptoms so came to ED. also reporting headaches and fogginess. In ED systolic blood pressure recorded in 200s though this is of questionable accuracy as patient has been moving around a lot and repeat systolic blood pressure 163. No significant lab abnormalities. Reports subjective fevers. Hospital course: came with dark stool, mild diarrhea: Admitted for acute on chronic colitis with dark stools. Patient was started on IV levofloxacin and Flagyl and GI evaluation requested. With above supportive care patient seems to be improving, tolerating diet and symptoms are significantly improving. Blood culture negative at 48 hours. Discussed with GI patient will go home with p.o. antibiotics, follow outpatient for further workup. Hypokalemia repleted and resolved. Hypomagnesemia also improving. continue with home with p.o. potassium and magnesium . Monitor electrolytes outpatient. htn : added amlodipine 5 mg po qd ,continue home coreg. plan: Monitor CBC, BMP, magnesium outpatient. Continue Levaquin and Flagyl as prescribed for 4 more days. Amlodipine 5 mg p.o. daily added. Monitor blood pressure out patiently. Follow up with PCP/GI outpatient. Above management discussed with the patient detail length she understand and in agreement with the above plan, time spent 45 minute, all questions answered. Staff was present during conversation. Time Attestation Total time managing care of this patient today: 45 mintues. Discharge Coordination Time (in mins): 45 minute Quality: Safe Use of Opioids Does Pt have an Active Cancer Diagnosis on the Problem List?: No Quality: Stroke Does the patient have a stroke diagnosis?: No Physical Exam Exam: Exam: General: AO X 3, no acute distress Resp: CTA bilateral, no accessory muscles used CVS: S1,S2,RRR GI: soft, non tender, non distended Neuro: motor grossly intact, alert Psych: appropriate affect. Vital Signs: Vital Signs: Last Vital Signs Temp 98.2 F 07/06/25 11:26 Pulse 75 07/06/25 11:26 Resp 18 07/06/25 11:26 BP 155/83 H 07/06/25 11:26 Pulse Ox 96 07/06/25 11:26 O2 Del Method Room Air 07/06/25 11:26 BMI result Body Mass Index 22.0 DS: Data Data Completed and Pending Completed studies during hospitalization [Text1]: Procedures Inspection of Upper Intestinal Tract, Via Natural or Artificial Opening Endoscopic (04/04/23) Release Peritoneum, Percutaneous Endoscopic Approach (09/13/24) Repair Diaphragm, Percutaneous Endoscopic Approach (09/13/24) Transfusion of Nonautologous Red Blood Cells into Peripheral Vein, Percutaneous Approach (05/17/25) Labs on day of discharge: Preliminary micro results at discharge 07/03/25 16:17 Blood Culture - Preliminary Blood - Venous No growth after 48 hours. 07/03/25 16:17 Blood Culture - Preliminary Blood - Venous No growth after [address] scan - abdomen: My impression: IMPRESSION: 1. Infectious/inflammatory colitis. 2. Large hiatal hernia. 3. Colonic diverticulosis. head ct: IMPRESSION: 1. No acute intracranial abnormality. 2. Stable chronic findings as above. Discharge Plan Discharge Anticipated Discharge Date/Time: 07/06/25 14:34 Patient Disposition: Home, Self-Care Discharge Diagnosis: Acute on chronic colitis Referrals: Arnulfo Villalba MD [Primary Care Provider, Medical] - 1 Week Candido Elias MD [Physician, Gastroenterology] - 1 Week Discharge Medications: New levofloxacin 500 mg tablet 500 mg PO DAILY Qty: 4 0RF metronidazole 500 mg tablet 500 mg PO BID Qty: 8 0RF amlodipine 5 mg Tablet 5 mg PO BEDTIME Qty: 90 0RF Protocol: Hold for SBP< HOLD for SBP < : 90 Continued buspirone 10 mg tablet 10 mg PO BID 90 Days Qty: 180 1RF lorazepam 0.5 mg tablet 0.5 mg PO BID PRN (Reason: anxiety) Qty: 60 2RF Rx Instructions: can cause balance problems hydroxyzine HCl 10 mg tablet 10 mg PO BEDTIME cholecalciferol (vitamin D3) 25 mcg (1,000 unit) Tablet 25 mcg PO DAILY magnesium oxide 400 mg magnesium Tablet 400 mg PO DAILY carvedilol 25 mg tablet 25 mg PO BID ferrous sulfate 325 mg (65 mg iron) tablet,delayed release (DR/EC) 325 mg PO DAILY Qty: 60 0RF meclizine [Dramamine Less Drowsy] 25 mg tablet 25 mg PO TID PRN (Reason: dizziness) Qty: 20 0RF albuterol sulfate [Ventolin HFA] 90 mcg/actuation HFA aerosol inhaler 2 puff inhalation Q6H PRN (Reason: Respiratory Distress) paroxetine HCl 40 mg tablet 40 mg PO BEDTIME 90 Days Qty: 90 1RF omeprazole 40 mg capsule,delayed release(DR/EC) 40 mg PO DAILY@0630 potassium chloride 20 mEq tablet,ER particles/crystals 20 meq PO DAILY Discharge Orders: Discharge Order (Routine); Ordered 07/06/25 Ordered By: Bessie Ashraf Diet: Advance to usual diet Activity on Discharge: As tolerated Stand Alone Forms: Patient Portal Discharge page Print Language: South African Other Ambulatory Orders: Basic Metabolic Panel (Routine) Timeframe: 1 Week Facility: [facility] - Location: Laboratory Ordered By: Bessie Ashraf Complete Blood Count no Diff (Routine) Timeframe: 1 Week Facility: [facility] - Location: Laboratory Ordered By: Bessie Ashraf Magnesium (Routine) Timeframe: 1 Week Facility: [facility] - Location: Laboratory Ordered By: Bessie Ashraf Care Plan Goals: came with dark stool, mild diarrhea: Patient was started on IV antibiotics seems to be improving, tolerating diet and symptoms are significantly improving. Discussed with GI patient will go home with p.o. antibiotics, follow outpatient for further workup. Hypokalemia repleted and resolved. Hypomagnesemia also improving. continue with home with p.o. potassium and magnesium . Monitor electrolytes outpatient. htn : added amlodipine 5 mg po qd ,continue home coreg. Follow up with PCP/GI outpatient Health Concerns: As above. Plan of Treatment: As above. Assessment: As above. Discharge Date/Time: 07/06/25 15:21
[2025-07-06 15:34] VITALS: BP 134/85; PULSE 91; RESP 18; TEMP 36.4; O2SAT 92
== END 2025-07-06 15:21 | disposition home or self-care (01) | DRG 392 ==
LOC: HO.ED 15:09 → HO.EDOVER 15:20 → HO.S3 16:04
PROVIDERS: Internal Medicine; Internal Medicine Gastroenterology; Admitting Provider Internal Medicine; Emergency Provider Emergency Medicine; PCP Internal Medicine; Visit Provider Internal Medicine
DX: A09 Infectious gastroenteritis and colitis, unspecified (principal); K52.9 Noninfective gastroenteritis and colitis, unspecified; J45.20 Mild intermittent asthma, uncomplicated; I10 Essential (primary) hypertension; F39 Unspecified mood [affective] disorder; E87.6 Hypokalemia; E83.42 Hypomagnesemia; Z87.891 Personal history of nicotine dependence; Z79.899 Other long term (current) drug therapy
CPT/HCPCS: 36415; 70450; 71045; 80048; 80076; 81003; 82272; 83690; 83735; 83880; 84484; 85025; 85027; 85610; 86140; 86850; 86900; 86901; 87040; 87493; 87507; 93005; 99221; 99285; J1836; J1956; J3475

== ENCOUNTER → 2025-07-03 13:02 | Outpatient (BNV) | payer MEDICARE, SELFPAY | PROVIDERS: Admitting Provider Internal Medicine; Emergency Provider Emergency Medicine; PCP Internal Medicine; Visit Provider Internal Medicine Cardiovascular Disease | DX: R94.31 Abnormal electrocardiogram [ECG] [EKG] (principal); K92.2 Gastrointestinal hemorrhage, unspecified | CPT/HCPCS: 93010 ==

== ENCOUNTER 2025-07-03 15:16 | Outpatient (BNV) | payer MEDICARE, SELFPAY | END 2025-07-03 16:04 | PROVIDERS: Admitting Provider Internal Medicine; Emergency Provider Emergency Medicine; PCP Internal Medicine; Visit Provider Radiology Diagnostic Radiology | DX: R51.9 Headache, unspecified (principal) | CPT/HCPCS: 70450; 71045 ==

== ENCOUNTER → 2025-07-03 15:16 | Outpatient (BNV) | payer MEDICARE, SELFPAY | PROVIDERS: Admitting Provider Internal Medicine; Emergency Provider Emergency Medicine; PCP Internal Medicine; Visit Provider Internal Medicine | DX: F41.1 Generalized anxiety disorder (principal) | CPT/HCPCS: 99223; 99231; 99239 ==

== ENCOUNTER → 2025-07-04 10:00 | Outpatient (BNV) | payer MEDICARE, SELFPAY | PROVIDERS: Admitting Provider Internal Medicine; Emergency Provider Emergency Medicine; PCP Internal Medicine; Visit Provider Internal Medicine Gastroenterology | DX: K52.9 Noninfective gastroenteritis and colitis, unspecified (principal) | CPT/HCPCS: 99223; 99232 ==

== ENCOUNTER 2025-07-10 08:40 | Emergency (ER) | payer MEDICARE, SELFPAY ==
[2025-07-10] VITALS (7 sets, daily range): BP systolic 120–174; BP diastolic 88–112; PULSE 91–105; RESP 12–20; TEMP 36.8–36.9; O2SAT 95–113; BMI 21.5
--- NOTE | ~2025-07-10 | CT_ITS ---
EXAMINATION: CT ABDOMEN PELVIS WITH IV CONTRAST HISTORY: lower abd pain COMPARISON: Comparison is made with the prior examination dated 07/01/2025. TECHNIQUE: CT scan of the abdomen and pelvis was performed following administration of 85 mL Omnipaque 350 using standard departmental protocol. Coronal and sagittal reformatted images were generated and reviewed. Oral contrast material was not administered at the request of the referring physician. This CT exam was performed with one or more of the following dose reduction techniques: automated exposure control, adjustment of the mA and/or kV according to patient size, use of iterative reconstruction technique. DLP: 291 mGy-cm FINDINGS: LOWER CHEST: The visualized lung bases are clear. There is no pleural effusion. CARDIOVASCULATURE: The heart is normal in size. There is no pericardial effusion. LIVER: The liver is normal in size and contour. Again seen are subcentimeter hypodensities in the liver which are too small to accurately characterize. The hepatic and portal veins are patent. GALLBLADDER / BILE DUCTS: The gallbladder is surgically absent. There is no intra or extrahepatic biliary ductal dilatation. SPLEEN: The spleen is normal in size. No focal splenic lesion is identified. PANCREAS: The pancreas is unremarkable in appearance. ADRENAL GLANDS: Within normal limits. KIDNEYS/RETROPERITONEUM: No renal calculi are identified. There is no hydronephrosis. No renal masses are identified. LYMPH NODES: No abdominal or pelvic lymphadenopathy. VASCULATURE: The abdominal aorta demonstrates atherosclerotic calcification, but is normal in caliber. MESENTERY/PERITONEUM: No free fluid. No masses. There is no free intraperitoneal gas. STOMACH: Again seen is a large hiatal hernia. The remainder the stomach is collapsed. SMALL BOWEL: The small bowel is normal in caliber. COLON: There has been interval improvement in the previously seen diffuse colonic wall thickening which now only affects the descending and sigmoid colon. There is evidence ecchymosis of the sigmoid colon, without evidence of diverticulitis. APPENDIX: Normal. URINARY BLADDER/PELVIC ORGANS: The urinary bladder is unremarkable. Again seen is a 2.7 cm calcified uterine fibroid. BONES / SOFT TISSUES: There is a moderate compression deformity involving T12 without change. CT/CT abdomen pelvis w IV con IMPRESSION: 1. Improvement in previously seen diffuse colitis which now only affects the descending and sigmoid colon. 2. Large hiatal hernia. Electronically signed by: Eugene Villarreal MD 07/10/2025 01:17 PM EDT RP
--- NOTE | 2025-07-10 09:11 | ED_ITS ---
HPI - Abdominal Pain General Chief Complaint: Abdominal Pain Stated Complaint: LOW ABD PAIN,N/V,SEEN FOR SAME Time Seen by Provider: 07/10/25 09:10 Source: patient, EMS, RN notes reviewed and old records reviewed Mode of arrival: EMS Limitations: no limitations History of Present Illness ED Provider: EUGENE Madsen HPI narrative: 74-year-old female with medical history of hypertension, hyperlipidemia, asthma, GERD, IBS, anxiety, lupus, CVA, vertigo presents to ED due to lower abdominal pain and diarrhea that began last night. Patient states symptoms began last night and had approximately 5 episodes of watery diarrhea. Additionally patient states her legs feel weak. Patient was recently hospitalized at [facility] for same symptoms and was started on levofloxacin and Flagyl with GI evaluation. Patient states she ended her last dose of Levaquin last night and Flagyl has 2 days left. Patient reports she has follow up with [facility] next week. Patient was positive for C diff 05/19/2025 Related Data Home Medications ?Medication ?Instructions ?Recorded ?Confirmed omeprazole 40 mg capsule,delayed 40 mg PO DAILY@0630 0 05/15/25 07/10/25 release potassium chloride 20 mEq 20 meq PO DAILY 05/15/2506/26 tablet,extended release(part/cryst) carvedilol 25 mg tablet 25 mg PO BID 05/17/25 cholecalciferol (vitamin D3) 25 25 mcg PO DAILY 07/10/25 mcg (1,000 unit) tablet hydroxyzine HCl 10 mg tablet 10 mg PO BEDTIME 07/03/25 07/10/25 magnesium oxide 400 mg PO DAILY 07/03/2506/26 buspirone 15 mg tablet 15 mg PO BID 07/11/25 Previous Rx's ?Medication ?Instructions ?Recorded paroxetine HCl 40 mg tablet 40 mg PO BEDTIME 90 days # 90 tabs 03/03/25 ferrous sulfate 325 mg (65 mg 325 mg PO DAILY #60 tabs 05/22/25 iron) tablet,delayed release lorazepam 0.5 mg tablet 0.5 mg PO BID PRN anxiety #6 0 tabs 06/02/25 amlodipine 5 mg tablet 5 mg PO BEDTIME #90 tabs 02/24 Allergies Allergy/AdvReac Type Severity Reaction Status Date / Time Codeine Sulfate Allergy Severe Anaphylaxis Verified 07/10/25 08:52 diphenhydramine (From Allergy Intermediate sweats, Verified 07/10/25 08:52 Benadryl) palpitation egg Allergy Intermediate Heartburn Verified 07/10/25 08:52 Sulfa (Sulfonamide Allergy Intermediate RASH Verified 07/10/25 08:52 Antibiotics) (SULFA (SULFONAMIDE ANTIBIOTICS)) cefuroxime AdvReac Intermediate delerium Verified 07/10/25 08:52 ,paranoia Review of Systems Review of Systems CONST: Negative for fever, body aches and chills. HENT: Negative for neck pain/stiffness, headache, congestion, sore throat, swelling. EYES: Negative for discharge/pain or vision changes. RESP: Negative for cough/hemoptysis and shortness of breath. CV: Negative chest pain, difficulty breathing, palpitations. ABD: Negative vomiting. POS lower abdominal pain/cramping, nausea, diarrhea : Negative increase frequency, dysuria, blood in urine or stool. MUSC: Negative for muscle aches, edema. SKIN: Negative rash, lesions/sores. NEURO: Negative headache, dizziness, weakness. 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 Surgical History History of open reduction and internal fixation (ORIF) procedure S/P repair of paraesophageal hernia Hx of colonoscopy History of cholecystectomy Family History Family History Father CAD (coronary artery disease) Maternal Grandmother HTN (hypertension), benign Father No problems noted. Mother Hypertension Asthma COPD (chronic obstructive pulmonary disease) Breast cancer, Onset Age: 101 Social History Social History Household Members: Other Household Members Other:: NEIC Housing: House Are you a primary care coordination manager to a significant other at home: No Do you presently have visiting nurse or other home services: No Alcohol intake: former Patient Tobacco Use Status: Former Tobacco user Tobacco use type: Cigarette Years Smoked: quit greater than 10 years ago Smoked in Last 30 Days: No Second Hand Smoke Exposure: No Use of substances other than those prescribed or required for medical reasons: No Advance Directives: Yes Advance Directives on File: Yes Advance Directives Date on File: 04/07/23 service: No Current occupational status: retired 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, 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 Physical Exam ED Vital Signs: Vital Signs - 24 hr 07/10/25 12:00 07/10/25 14:27 07/10/25 14:35 Temperature Pulse Rate 101 H 95 93 Respiratory Rate 16 12 Blood Pressure 158/96 H 165/112 H Pulse Oximetry 98 113 H 97 Oxygen Delivery Method Room Air Room Air 07/10/25 16:00 07/10/25 18:07 07/10/25 22:56 Temperature 98.3 F 98.4 F Pulse Rate 99 94 91 Respiratory Rate 19 14 20 Blood Pressure 174/108 H 171/100 H 141/88 H Pulse Oximetry 96 96 95 Oxygen Delivery Method Room Air Room Air Room Air 07/11/25 05:33 07/11/25 07:15 07/11/25 08:01 Temperature 98.3 F Pulse Rate 89 91 96 Respiratory Rate 16 17 Blood Pressure 165/90 H 176/103 H 150/89 H Pulse Oximetry 96 97 Oxygen Delivery Method Room Air Room Air BMI result Body Mass Index 21.5 GENERAL APPEARANCE: ?AxOx4, no acute distress. HEENT: ?NC, AT. MMM. EOMI, clear conjunctiva, oropharynx clear. NECK: ?Supple without lymphadenopathy.? No stiffness or restricted ROM. HEART:? Normal rate and regular rhythm, normal S1/S2, no m/r/g LUNGS:? CTAB, moving air well. No crackles or wheezes are heard. ABDOMEN: ?Soft, nondistended, no rigidity, no guarding, no rebound tenderness, mild TTP of diffuse lower abdomen, no suprapubic tenderness BACK: No CVAT, no obvious deformity. EXTREMITIES: ?Without cyanosis, clubbing or edema. NEUROLOGICAL: ?Grossly nonfocal. Alert and oriented, moving all 4 extremities. Skin: ?Warm and dry without any rash. Medical Decision Making Medical Decision Making MDM Narrative: 74-year-old female with medical history of hypertension, hyperlipidemia, asthma, GERD, IBS, anxiety, lupus, CVA, vertigo presents to ED due to lower abdominal pain and diarrhea that began last night. Patient states symptoms began last night and had approximately 5 episodes of watery diarrhea. Additionally patient states her legs feel weak. Patient was recently hospitalized at [facility] for colitis and was started on levofloxacin and Flagyl with GI evaluation. Patient states she ended her last dose of Levaquin last night and Flagyl has 2 days left. Patient reports she has follow up with [facility] next week. Patient was positive for C diff 05/19/2025 VS on initial observation-. Physical exam reveals lungs clear to auscultation bilaterally, cardiac exam with normal rate and rhythm, no murmurs/rubs/gallops. Abdomen is soft, nonrigid, no guarding, nondistended, with diffuse tenderness to the lower abdomen without suprapubic tenderness. 2+ patellar reflexes bilaterally. No focal neurological deficits noted. Plan: Labs, UA, stool panel, CT abdomen and pelvis Course 17:23- Patient has received IV fluids, 4 mg morphine, 4 mg Zofran for pain and nausea with good effect. Labs without leukocytosis/leukopenia, H&H stable, no electrolyte abnormality. Currently awaiting UA and stool panel. CT abdomen and pelvis reveals a large hiatal hernia, and a resolving diffuse colitis which is now only affecting the descending and sigmoid colon. Patient has 2 days left of Flagyl antibiotic therapy. Patient feels that she has persistent weakness, had PT eval found she was suitable to go home with VNA services and home PT services. Patient feels nervous to go home and has talked to her psychiatrist Dr. Moraes while in the department. I spoke with Dr. Moraes as well who feels patient will benefit from an over night stay and she can follow up with him outpatient this coming . Patient also has GI follow up with [facility] spring clipper Dr. Elias next week. I counseled patient that she is likely feeling weak due to longstanding diarrhea and colitis that she was recently hospitalized for. It is crucial for her to follow up with GI for further evaluation and management. Patient is entering physician observation at this time. Time: 10:35 Date: 07/11/25 Provider: SUNG Adkins Physician observation ended at 1035. Patient evaluated by both PT/CM. After discussion, patient will be [facility] for usp and PT. Dr. Moraes would like patient to follow up with him this in his office outpatient. I have provided his contact info and have informed her to schedule an appointment. She will be returning home with her niece today. Patient has remained stable throughout ED visit today. Discussed worrisome signs and symptoms and when to return to the ED. All questions answered at this time. Patient is agreeable with disposition and stable for discharge. Differential Diagnosis Differential Diagnoses: The differential diagnosis associated with the presentation includes Acute abdomen Abdominal abscess Colitis Viral illness Admission/Observation Consideration of admission/observation: Escalation of care including admission/observation considered Lab Data MDM Lab Attestation statement: I reviewed the patient's lab results. 07/10/25 10:20 07/10/25 12:03 Labs: Lab Results 07/10/25 07/10/25 07/10/25 Range/Units 10:20 12:03 14:01 WBC 6.0 (4.8-10.8) X10*3/uL RBC 4.62 D (4.20-5.50) X10*6/uL Hgb 13.7 D (12.0-16.0) g/dl Hct 39.5 D (37.0-47.0) % MCV 85.5 (80.0-98.0) fL MCH 29.7 (27.0-33.0) pg MCHC 34.7 (31.0-35.0) g/dl RDW 17.9 H (11.0-16.0) % Plt Count 234 (160-400) X10*3/uL MPV 8.6 L (9.4-12.3) fL Immature Gran % (Auto) 0.3 (0.0-0.4) % Neut % (Auto) 71.4 (45-73) % Lymph % (Auto) 15.8 L (20-40) % Elliott % (Auto) 10.6 (2-11) % Eos % (Auto) 1.2 (0-4) % Baso % (Auto) 0.7 (0-2) % Lymph # (Auto) 1.0 L (1.2-4.9) X10*3/uL Elliott # (Auto) 0.6 (0.1-1.2) X10*3/uL Eos # (Auto) 0.1 (0.0-0.4) X10*3/uL Baso # (Auto) 0.0 (0.0-0.2) X10*3/uL Abs Immat Gran (auto) 0.02 (0.00-0.03) X10*3/uL Absolute Neuts (auto) 4.3 (2.0-8.3) x10*3/uL Absolute Nucleated RBC 0.000 (0.0-0.012) X10*3/uL Nucleated RBC % (auto) 0.0 (0.0-0.2) /100WBC Sodium 136 (135-145) mmol/L Potassium 4.7 D (3.3-5.1) mmol/L Chloride 107 (96-108) mmol/L Carbon Dioxide 21 L (22-29) mmol/L Anion Gap 13 (12-20) BUN 10 (9-16) mg/dL Creatinine 0.76 (0.5-1.4) mg/dL Estim Creat Clear Calc 45.9 Estimated GFR > 60 Random Glucose 100 (60-115) mg/dL Calcium 9.1 D (8.4-10.2) mg/dL Magnesium 1.9 (1.6-2.6) mg/dL Total Bilirubin 0.5 (0.0-1.0) mg/dL AST 25 (5-31) U/L ALT 12 (0-31) U/L Alkaline Phosphatase 80 (39-117) U/L Total Protein 6.8 (6.5-8.0) g/dL Albumin 4.1 (3.5-5.0) g/dL COVID-19 (LAURO) Negative (Negative) COVID-19 Clin Com See Note Influenza Type A (VALENCIA) Negative (Negative) Influenza Type B ([facility]ENCIA) Negative (Negative) Influenza A & B Note See Note Independent Interpretation I performed an independent interpretation of an: CT Scan Interpretation: I independently interpreted the CT abdomen and pelvis which shows a hiatal hernia, and a resolving colitis, I agree with the radiologist's interpretation Radiology Impression Discussion of test interpretation with radiology: I have reviewed the radiologist's reading. Radiologist Impression: CT abdomen and pelvis FINDINGS: LOWER CHEST: The visualized lung bases are clear. There is no pleural effusion. CARDIOVASCULATURE: The heart is normal in size. There is no pericardial effusion. LIVER: The liver is normal in size and contour. Again seen are subcentimeter hypodensities in the liver which are too small to accurately characterize. The hepatic and portal veins are patent. GALLBLADDER / BILE DUCTS: The gallbladder is surgically absent. There is no intra or extrahepatic biliary ductal dilatation. SPLEEN: The spleen is normal in size. No focal splenic lesion is identified. PANCREAS: The pancreas is unremarkable in appearance. ADRENAL GLANDS: Within normal limits. KIDNEYS/RETROPERITONEUM: No renal calculi are identified. There is no hydronephrosis. No renal masses are identified. LYMPH NODES: No abdominal or pelvic lymphadenopathy. VASCULATURE: The abdominal aorta demonstrates atherosclerotic calcification, but is normal in caliber. MESENTERY/PERITONEUM: No free fluid. No masses. There is no free intraperitoneal gas. STOMACH: Again seen is a large hiatal hernia. The remainder the stomach is collapsed. SMALL BOWEL: The small bowel is normal in caliber. COLON: There has been interval improvement in the previously seen diffuse colonic wall thickening which now only affects the descending and sigmoid colon. There is evidence ecchymosis of the sigmoid colon, without evidence of diverticulitis. APPENDIX: Normal. URINARY BLADDER/PELVIC ORGANS: The urinary bladder is unremarkable. Again seen is a 2.7 cm calcified uterine fibroid. BONES / SOFT TISSUES: There is a moderate compression deformity involving T12 without change. CT/CT abdomen pelvis w IV con IMPRESSION: 1. Improvement in previously seen diffuse colitis which now only affects the descending and sigmoid colon. 2. Large hiatal hernia. Electronically signed by: Eugene Villarreal MD 07/10/2025 01:17 PM EDT Dictated By: Eugene Villarreal MD Signed By: <Electronically signed by Eugene Villarreal MD in OV> 07/10/25 1317 External Record Review External record reviewed: Inpatient record, Office record and Outpatient record Chronic Conditions Patient?s care impacted by: Hypertension and Other (HLD, asthma, GERD, IBS, anxiety, lupus, CVA, vertigo) Social Determinants Patient?s care significantly limited by Social Determinants of Health including: Other Social Determinant of Health Medications Administered Generic Name Dose Route Start Last Admin Trade Name Heladioq PRN Reason Stop Dose Admin Acetaminophen 975 mg 07/10/25 21:15 07/11/25 05:30 Acetaminophen 325 Mg Tablet PO Not Given Q8H RAMONA Buspirone HCl 15 mg 07/11/25 10:15 07/11/25 10:16 Buspirone Hcl 5 Mg Tablet PO 15 mg BID RAMONA Administration Lorazepam 0.5 mg 07/11/25 09:16 07/11/25 09:40 Lorazepam 0.5 Mg Tablet PO 0.5 mg BID PRN Administration Anxiety Omeprazole 40 mg 07/11/25 09:30 07/11/25 10:16 Omeprazole 40 Mg Capsule.Dr PO 40 mg DAILY@0630 RAMONA Administration Potassium Chloride 20 meq 07/11/25 09:30 07/11/25 10:16 Potassium Chloride Er 20 Meq Tab.Er.Prt PO 20 meq DAILY RAMONA Administration Vitamin D 25 mcg 07/11/25 09:30 07/11/25 10:16 Cholecalciferol (Vitamin D3) 25 Mcg Tablet PO 25 mcg DAILY RAMONA Administration Discontinued Medications Generic Name Dose Route Start Last Admin Trade Name Heladioq PRN Reason Stop Dose Admin Acetaminophen 975 mg 07/11/25 03:56 07/11/25 04:01 Acetaminophen 325 Mg Tablet PO 07/11/25 03:57 975 mg ONCE ONE Administration Amlodipine Besylate 5 mg 07/11/25 07:34 07/11/25 08:01 Amlodipine Besylate 5 Mg Tablet PO 07/11/25 07:35 5 mg ONCE ONE Administration Protocol Carvedilol 25 mg 07/11/25 07:34 07/11/25 08:01 Carvedilol 25 Mg Tablet PO 07/11/25 07:35 25 mg ONCE ONE Administration Protocol Lactated Ringer's 1,000 mls @ 999 mls/hr 07/10/25 13:48 07/10/25 15:00 Lr IV 07/10/25 14:48 Infused .Q1H1M ONE Infusion Iohexol 85 ml 07/10/25 13:04 07/10/25 13:04 Iohexol 350 Mg/Ml 75 Ml Infus..Btl IV 07/10/25 13:05 85 ml ONCE ONE Administration Lorazepam 0.5 mg 07/10/25 22:40 07/10/25 23:03 Lorazepam 0.5 Mg Tablet PO 07/10/25 22:41 0.5 mg ONCE ONE Administration Morphine Sulfate 4 mg 07/10/25 13:47 07/10/25 14:00 Morphine Sulfate 4 Mg/Ml Cartridge IVPUSH 07/10/25 13:48 4 mg ONCE ONE Administration Protocol Ondansetron HCl 4 mg 07/10/25 13:47 07/10/25 14:00 Ondansetron Hcl 4 Mg/2 Ml Vial IVPUSH 07/10/25 13:48 4 mg ONCE ONE Administration Discharge Plan Discharge Clinical Impression: Colitis, Physical deconditioning Patient Disposition: Home, Self-Care Additional Instructions: You were evaluated in the ED today due to lower abdominal pain and diarrhea. Your CT abdomen shows a resolving colitis and a large hiatal hernia. You have follow up with [facility] spring clipper Dr. Elias next week, please go to this appointment for further evaluation. Additionally, Dr. Moraes said he would see you outpatient this coming . You need to call their office to make the appointment. You are being discharged home with A nursing services and home physical therapy to help with your deconditioning. Please follow up with your primary care doctor, your spring clipper for further evaluation. Please return to the emergency department if you have worsening abdominal pain, fevers over 100.4?, chest pain, shortness of breath, worsening diarrhea, or any new/worsening/concerning symptoms. Prescriptions: No Action lorazepam 0.5 mg tablet 0.5 mg PO BID PRN (Reason: anxiety) Qty: 60 2RF Rx Instructions: can cause balance problems hydroxyzine HCl 10 mg tablet 10 mg PO BEDTIME cholecalciferol (vitamin D3) 25 mcg (1,000 unit) Tablet 25 mcg PO DAILY magnesium oxide 400 mg magnesium Tablet 400 mg PO DAILY amlodipine 5 mg Tablet 5 mg PO BEDTIME Qty: 90 0RF Protocol: Hold for SBP< HOLD for SBP < : 90 buspirone 15 mg tablet 15 mg PO BID carvedilol 25 mg tablet 25 mg PO BID ferrous sulfate 325 mg (65 mg iron) tablet,delayed release (DR/EC) 325 mg PO DAILY Qty: 60 0RF paroxetine HCl 40 mg tablet 40 mg PO BEDTIME 90 Days Qty: 90 1RF omeprazole 40 mg capsule,delayed release(DR/EC) 40 mg PO DAILY@0630 potassium chloride 20 mEq tablet,ER particles/crystals 20 meq PO DAILY Referrals: [facility] [Outside] Referral Note: Agency will call to arrange visit. Thierry Moraes MD [Physician, Psychiatry] Print Language: Lao
--- NOTE | 2025-07-10 09:25 | PC.NURSE ---
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
--- NOTE | 2025-07-10 09:26 | PC.NURSE ---
Patient is a 74 yo female who presents with generalized abdominal with assoc nausea and weakness. PMH mild intermitent asthma, cutaneous lupus, tia, recurrent colitis, mood disorder, Lindsay esophagitis, presented with dark stools, headache. Patient was admitted and discharged on 07/06 at [facility] for similar symptoms. She states on discharge was feeling better but then about 2 weeks prior to presentation started to have worsening diarrhea with dark stools, came to ED on 07/01/[address] positive for colitis and was discharged on Levaquin and Flagyl. Gi consult performed. Patient alert and oriented but anxious. Lungs clear bilat. Respirations even and non-labored. Abdomen soft with positive bowel sounds. No significant tenderness noted. No LE edema noted. Friend at the bedside.
--- OUTSIDE RECORDS SUMMARY | 2025-07-10 10:13 | XMS_ITS | Clinical Summary ---
Author Organization [facility] Address [address] [place] [address] [place] [phone] Phone Care Team Providers Care Thread Singer Name Role Phone Unavailable Primary Care Provider Unavailabl e Encounters Date Type Department Care Team Description 05/22/2025 Orders Only [facility] [address] [place] [id number] Homehealth, Interface ProviderMD from Last 3 Months [...] file Medical Devices Not on file Insurance [facility] MEDICARE REPLACEMENT [facility] MEDICARE REPLACEMENT [facility] MEDICARE REPLACEMENT Additional Source Comments The information contained in this document represents components of the legal health record. It is not the complete legal health record.[facility]
[2025-07-10 10:27] LABS: MANUAL DIFF FLAG NO
[2025-07-10 10:28] LABS: Hematocrit 39.5 % (37.0-47.0); Hemoglobin 13.7 g/dl (12.0-16.0); Imm Gran Abs Auto 0.02 X10*3/uL (0.00-0.03); Imm Gran Pct Auto 0.3 % (0.0-0.4); Lymphocytes Absolute Auto 1.0 X10*3/uL (1.2-4.9); Mean Corpuscular HGB Conc 34.7 g/dl (31.0-35.0); Mean Corpuscular Hemoglobin 29.7 pg (27.0-33.0); Mean Corpuscular Volume 85.5 fL (80.0-98.0); NRBC Abs Auto 0.000 X10*3/uL (0.0-0.012); NRBC Pct Auto 0.0 /100WBC (0.0-0.2); Platelet Count 234 X10*3/uL (160-400); Red Blood Count 4.62 X10*6/uL (4.20-5.50); White Blood Count 6.0 X10*3/uL (4.8-10.8)
[2025-07-10 12:21] LABS: Alanine Aminotransferase 12 U/L (0-31); Albumin Level 4.1 g/dL (3.5-5.0); Alkaline Phosphatase 80 U/L (39-117); Anion Gap 13 (12-20); Aspartate Amino Transferase 25 U/L (5-31); Blood Urea Nitrogen 10 mg/dL (9-16); Calcium 9.1 mg/dL (8.4-10.2); Carbon Dioxide 21 mmol/L (22-29); Chloride 107 mmol/L (96-108); Creatinine Clr Calc Pharmacy 45.9; Estimated Glomerular Filt Rate > 60; Magnesium 1.9 mg/dL (1.6-2.6); Potassium 4.7 mmol/L (3.3-5.1); Sodium 136 mmol/L (135-145); Total Protein 6.8 g/dL (6.5-8.0)
[2025-07-10] MEDS: iohexoL 350 MG/ML 75 ML INFUS..BTL 85 ML IV (13:04)
[2025-07-10] MEDS: Lactated Ringers 1,000 ML 999 ML IV (13:59)
--- NOTE | 2025-07-10 14:00 | PC.NURSE ---
PT evaluation performed and clinician stated - no STR needed and could be discharged home with services.
[2025-07-10 14:30] LABS: COVID-19 Test Negative (Negative); IDNOW Serial# 08D9AD1C; IDNOW Serial# 58CA691E; Influenza B2 Negative (Negative)
--- NOTE | 2025-07-10 20:41 | MHC.CM.ED ---
CM met with patient. Pt is medically cleared. Pt does not meet criteria for admission. Pt is a patient of Dr. Moraes's. Dr. Moraes to see pt. Pt does not meet criteria for IPLOC. PT evaluated patient and recommends home with services. Pt unhappy that STR has not been recommended. Pt is fearful that she will fall. Pt will remain overnight. Pt has [employer] Medicare Advantage. Do not expect them to authorized STR if not recommended.. Pt understands. Pt would like someone to be at her home for about 8 hours/day. CM explained that unless she private pays for care, no agency will be with her for 8 hours each day. Pt was independent at home and driving until 2 weeks ago when she developed colitis. Pt lives alone. Uses a cane. Has a walker. PT has recommended that patient use the walker while she feels weak and is recovering from her [place] [facility] [place] 07[place] Moraes will see the patient tomorrow and requests patient calls his office to F/U on for an appointment. Pt was supposed to follow up with GI this week, but she did not call for appointment. Pt encouraged to call GI tomorrow when she gets home for a f/u appointment. Pt requests that [facility] not be referred to. Will place local referrals for SN and PT.
[2025-07-11 05:33] VITALS: BP 165/90; PULSE 89; RESP 16; TEMP 36.8; O2SAT 96
[2025-07-11 07:15] VITALS: BP 176/103; PULSE 91; RESP 17; O2SAT 97
--- NOTE | 2025-07-11 07:26 | PC.NURSE ---
pt home medications sent to pharmacy
[2025-07-11 08:01] VITALS: BP 150/89; PULSE 96
--- NOTE | 2025-07-11 08:42 | MHC.CM.ED ---
Patient remains in ER. [facility] are able to accept patient. Patient accepts [facility] made aware. Patient states her niece, Aiyana will arrange transport home. Last CM note stated Dr Moraes was going to see patient today. Message sent to Dr Moraes to determine when he will be bedside in order to arrange transport home. Continue to monitor for d/c needs.
--- NOTE | 2025-07-11 10:14 | PHA.MEDREC ---
Pharmacy Consult ? Medication Reconciliation Pharmacy has reviewed the medication reconciliation done by nursing and also spoke to patient. Patient confirmed she is on the newer dose of buspirone (15 mg bid), carvedilol is 25 mg bid. She no longer takes levofloxacin nor metronidazole. She confirmed she is still taking paroxetine 40 mg at bedtime and potassium chloride 20 mEq daily.
[2025-07-11] MEDS: Potassium Chloride ER 20 MEQ TAB.ER.PRT PO (10:16)
--- NOTE | 2025-07-11 10:31 | MHC.CM.ED ---
Dr Moraes saw patient bedside. Wants patient to call his office to schedule an appointment for . Spoke with patient's niece, Aiyana, via telephone at [phone]. Aiyana and her partner are unable to transport patient home today. Requesting Lyft be ordered. Offered [facility] Shuttle. Patient does not feel she will be able to tolerate shuttle if there are a lot of stops. Lyft will be arraned. Patient, Ailyn PUGH and Marisela ALMARAZ aware. Continue to monitor for d/c needs.
[2025-07-11 10:50] VITALS: BP 154/88; PULSE 83; RESP 16; TEMP 36.6; O2SAT 97
== END 2025-07-11 11:20 | disposition home or self-care (01) ==
PROVIDERS: Emergency Provider Emergency Medicine; PCP Internal Medicine
DX: K52.9 Noninfective gastroenteritis and colitis, unspecified (principal); K44.9 Diaphragmatic hernia without obstruction or gangrene; R10.30 Lower abdominal pain, unspecified; R53.1 Weakness; R53.81 Other malaise; Z79.899 Other long term (current) drug therapy
CPT/HCPCS: 36415; 74177; 80053; 83735; 85025; 87502; 87635; 96361; 96374; 96375; 97161; 99285; J2270; J2405; J7120; Q9967

== ENCOUNTER → 2025-07-10 09:45 | Outpatient (BNV) | payer MEDICARE, SELFPAY | PROVIDERS: Emergency Provider Emergency Medicine; PCP Internal Medicine; Visit Provider Radiology Diagnostic Radiology | DX: K44.9 Diaphragmatic hernia without obstruction or gangrene (principal); K52.9 Noninfective gastroenteritis and colitis, unspecified | CPT/HCPCS: 74177 ==

== ENCOUNTER 2025-07-13 12:06 | Outpatient (AMB) | payer MEDICARE, SELFPAY ==
--- NOTE | 2025-07-13 11:44 | MHC.OFFVISPS ---
Intake Intake Visit Reasons: depression Allergies Codeine Sulfate Allergy (Severe, Verified 07/19/25 11:08) Anaphylaxis diphenhydramine (From Benadryl) Allergy (Intermediate, Verified 07/19/25 11:08) sweats, palpitation egg Allergy (Intermediate, Verified 07/19/25 11:08) Heartburn Sulfa (Sulfonamide Antibiotics) (SULFA (SULFONAMIDE ANTIBIOTICS)) Allergy (Intermediate, Verified 07/19/25 11:08) RASH cefuroxime Adverse Reaction (Intermediate, Verified 07/19/25 11:08) leon tirado Medication List - Last Reconciled 07/13/25 by Thierry Moraes MD amlodipine 5 mg See Protocol PO BEDTIME buspirone 15 mg PO BID carvedilol 25 mg PO BID cholecalciferol (vitamin D3) 25 mcg PO DAILY doxepin (Silenor) 6 mg PO BEDTIME PRN 30 days ferrous sulfate 325 mg PO DAILY hydroxyzine HCl 10 mg PO BEDTIME PRN 90 days lorazepam 0.5 mg PO TID PRN magnesium oxide 400 mg PO DAILY omeprazole 40 mg PO DAILY@0630 paroxetine HCl 40 mg PO BEDTIME 90 days potassium chloride ER 20 mEq PO DAILY HPI- Psychiatric Chief Complaint: depression HPI Narrative: Patient seen psychiatric follow-up. Patient's mood has been anxious and ruminating. Continues to worry about her phy\'''''' '''''sical health Waiting to have some feedback from her hydrogenation still operator. Patient generally feels unsafe in her house anxious worried preoccupied about her physical health. Does not feel stable on Paxil lorazepam alone. Has frequently needed to come to the emergency room She is supposed to have supportive services in the house Past Psychiatric History: Patient has chronic history of panic somatic preoccupations mild depressive episodes. Patient has generally been doing okay she lives with her niece in the same building to family house. Some chronic anxiety related to chronic allergy symptoms have been encouraged visit to gear inspector or ENT which she has not pursued Librium has been cut in half over time history of panic attacks and anxiety generally stable with Paxil buspirone denies over medication does have some degree of chronic balance problems week and discussed possibility of physical therapy for strengthening and balance. She is also seen by rheumatology Mental Status Exam Mental Status Exam Patient Orientation: Person, Place, Time and Situation Level of Consciousness: Awake Patient Behavior: Anxious and Distractible Mood Description: Depressed and Anxious Affect Description: Constricted and Anxious Ability to Follow Directions: Good Memory Description: Intact Hallucinations: None Delusions: Not Present Thought Process: Rumination Depressive Symptoms: Increased Anxiety, Difficulty Sleeping, Loss of Int. in Activity and Loss of Energy Judgement: Fair Judgement and Insight: Patient feeling overwhelmed unsafe living alone open to supportive services Assessment and Plan Assessment & Plan (1) Panic disorder [episodic paroxysmal anxiety]: Status: Acute Code(s): F41.0 - Panic disorder [episodic paroxysmal anxiety] (2) Generalized anxiety disorder: Status: Acute Code(s): F41.1 - Generalized anxiety disorder (3) Depression with anxiety: Status: Acute Code(s): F41.8 - Other specified anxiety disorders Plan Patient with insomnia and anxiety discussed use of doxepin 6 mg at bedtime as needed low-dose hydroxyzine for anxiety strongly caution regarding balance difficulties and can possible confusion however balancing psych psychiatric symptoms versus medication use. Did not find mirtazapine helpful. Tried to see if case management can become involved spoke with Belkys Leyva was helpful previously Patient would benefit from supportive services Medications: New hydroxyzine HCl 10 mg PO BEDTIME 90 tabs 0RF doxepin (Silenor) 6 mg PO BEDTIME PRN 30 tabs 2RF sleep 30 days Changed From lorazepam can cause balance problems 0.5 mg PO BID PRN 60 tabs 2RF anxiety To lorazepam can cause balance problems 0.5 mg PO TID PRN 90 tabs 2RF anxiety From hydroxyzine HCl 10 mg PO BEDTIME 90 tabs 0RF To hydroxyzine HCl 10 mg PO BEDTIME PRN 90 tabs 1RF insomnia 90 days Counseling and coordination of Care Details-Self Mgmt counseling: Discussed different options including assisted living. Patient does not feel she can financially afford assisted living is open to help with home-based services. [facility] supposed to be involved trying to get case management to see if they can help intervene and help with home-based services and support Medication management counseling: Effectiveness and Side effects Diagnosis and Prognosis Counseling: Prognosis over time, Impact of diagnosis on life functions and Adequacy of current interventions Details: I spent [39] minutes reviewing the record, seeing the patient and documenting in the medical record. Counseling provided to the patient/caregiver as outlined below. Addressed patient/caregiver concerns regarding current medication regime including effective adherence. Addressed patient/caregiver concerns regarding diagnosis and prognosis including accuracy of diagnosis, prognosis over time, impact of diagnosis. Addressed patient/caregiver concerns regarding impact of recent stressors. 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 Surgical History History of open reduction and internal fixation (ORIF) procedure S/P repair of paraesophageal hernia Hx of colonoscopy History of cholecystectomy Family History Father CAD (coronary artery disease) Maternal Grandmother HTN (hypertension), benign Father No problems noted. Mother Hypertension Asthma COPD (chronic obstructive pulmonary disease) Breast cancer, Onset Age: 101 Social History Household Members: Other Household Members Other:: NEIC Housing: House Are you a primary primary care nurse practitioner to a significant other at home: No Do you presently have visiting nurse or other home services: No Alcohol intake: former Patient Tobacco Use Status: Former Tobacco user Tobacco use type: Cigarette Years Smoked: quit greater than 10 years ago Second Hand Smoke Exposure: No Advance Directives Date on File: 04/07/23 service: No Current occupational status: retired 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 The mother is she has a brother with PTSD family history of depression She never no children Substance History: none Trauma History: NA Coding Level of Care Code Est Pt Level 3 (67754) Therapy 30m w/E&M (30754) Diagnoses Panic disorder [episodic paroxysmal anxiety] F41.0 Generalized anxiety disorder F41.1 Depression with anxiety F41.8
--- OUTSIDE RECORDS SUMMARY | 2025-07-13 16:20 | XMS_ITS | Encounter Summary ---
Author Organization [facility] Address [address] [place] [id number] Phone Care Team Providers Care Shop Manager Name Role Phone Unavailable Primary Care Provider Unavailabl e Reason for Referral * Home Health Care - New Request Specialty Diagnoses / Procedures Referred By Anderson t Referred To Contact Home Health Services Dorcas Marquis MD [address] [place] [address] Phone: tel: [email or web address] Home Care [address] [place] [id number] Phone: tel: Referral ID Status Reason Start Date Expiration Date V isits Requested Visits Authorized [id number] New Request 07/11/2025 07/11/2026 1 1 Encounter Details Date Type Department Care Team (Late st Contact Info) Description 07/11/2025 Orders Only [facility] [address] [place], [place] [phone] Dorcas Marquis MD [address] [place] [address] Social History Tobacco Use Types Packs/Day Years [...] on file Sexual Orientation Not on file documented as of this encounter Plan of Treatment Scheduled Referrals Name Type Priority Associated Diagnoses Orde r Schedule 4NEXT REFERRAL TO HOME HEALTH Outpatient Referral Routine Ordered: 07/11/2025 documented as of this encounter Visit Diagnoses Not on filedocumented in this encounter Additional Source Comments The information contained in this document represents components of the legal health record. It is not the complete legal health record.[facility]
--- OUTSIDE RECORDS SUMMARY | 2025-07-13 16:20 | XMS_ITS | Clinical Summary ---
Author Organization [facility] Address [address] [place] [address] [place], [place] [id number] Phone Care Team Providers Care Second Worker Name Role Phone Unavailable Primary Care Provider Unavailabl e Encounters Date Type Department Care Team Description 07/11/2025 Orders Only [facility] [address] [place] [address] Homehealth, Interface MD Gunner 05/22/2025 Orders Only [facility] [address] [place] [phone] Homehealth, Interface ProviderMD from Last 3 Months [...] file Medical Devices Not on file Insurance [facility] MEDICARE REPLACEMENT [facility] MEDICARE REPLACEMENT [place] [id number] [place] [address] MEDICARE REPLACEMENT [place] [id number] [facility] MEDICARE REPLACEMENT Additional Source Comments The information contained in this document represents components of the legal health record. It is not the complete legal health record.[facility]
== END 2025-07-13 12:12 | disposition home or self-care (01) ==
LOC: HO.HOP 12:06
PROVIDERS: PCP Internal Medicine; Visit Provider Psychiatry & Neurology Psychiatry
DX: F41.0 Panic disorder [episodic paroxysmal anxiety] (principal); F41.1 Generalized anxiety disorder; F41.8 Other specified anxiety disorders
CPT/HCPCS: 90833; 99213

== ENCOUNTER → 2025-07-13 12:06 | Outpatient (BNVA) | payer MEDICARE, SELFPAY | PROVIDERS: PCP Internal Medicine; Visit Provider Psychiatry & Neurology Psychiatry | DX: F41.0 Panic disorder [episodic paroxysmal anxiety] (principal); F41.1 Generalized anxiety disorder; F41.8 Other specified anxiety disorders | CPT/HCPCS: 99212 ==

== ENCOUNTER → 2025-07-19 11:06 | Outpatient (AMB) | payer MEDICARE, SELFPAY ==
--- NOTE | 2025-07-19 11:07 | A.OFFVIS_ITS ---
Intake Visit Reasons: colitis, diarrhea, saw olivia inpt 07/05/25 Intake Note: Renata presents as a telehealth today as an inpatient follow up. CC: Flare up is acting up as we speak - states she lives with it. Diarrhea, constipation, abdominal pains. She states she have dark stools and cannot tell if it is blood or not. Finance Business Partner Required: No Allergies Codeine Sulfate Allergy (Severe, Verified 07/19/25 11:08) Anaphylaxis diphenhydramine (From Benadryl) Allergy (Intermediate, Verified 07/19/25 11:08) sweats, palpitation egg Allergy (Intermediate, Verified 07/19/25 11:08) Heartburn Sulfa (Sulfonamide Antibiotics) (SULFA (SULFONAMIDE ANTIBIOTICS)) Allergy (Intermediate, Verified 07/19/25 11:08) RASH cefuroxime Adverse Reaction (Intermediate, Verified 07/19/25 11:08) leon tirado HPI Comments Details: 74 y.o F with past medical history of hypertension, GERD, rheumatoid arthritis, history of CVA, paraesophageal hernia s/p repair 09/13/2024 laparoscopic lysis of adhesions and gastropexy who is here for inpatient follow up. Seen in hospital 12/05/24 for hematemesis and diverticulitis. Following up today to schedule egd/colo. To recall had atypical focal ascending colon wall thickening on CT done in hospital last month. Her last colo was in 2019 (x2 T.A in ASCENDING colon). Currently reports no further vomiting since hospitalization. No abd pain, change in stool color or consistency. No unintentional weight loss. 03/08/25: Was seen in ER last month for another episode of acute uncomplicated diverticulitis. CT 02/11/25: There is abnormal thickening along the sigmoid colon in the region of diverticulosis. Currently still has lower abd pain with cramping with bloating worse with food. Has also been having diarrhea since her visit to ER last month. Has 10 BMs per day! All watery or jello consistency. No blood in stool. No fevers or chills. Nausea but no vomiting. Has been avoiding ton eat much due to abd pain and diarrhea after eating. CDiff negative 03/06/25. Diet is mostly turkey sandwiches, potatoes, meat. Minimal fiber. CT reviewed has focal thickening around sigmoid. 04/27/25: 1. Esophagitis r/o latia (biopsy) 2. Hiatal hernia 3. Normal stomach 4. Normal duodenum (biopsy) 5. Abnormal cecal mucosa (biopsy) 6. Total of 2 polyps removed 7. Diverticulosis 8. Hemorrhoids Path: A. Duodenum, biopsy: Duodenal mucosa within normal limits. B. Esophagus, lower, biopsy: Latia esophagitis. C. Colon, ascending, polypectomy: Fragments of tubular adenoma; negative for high-grade dysplasia or carcinoma. D. Cecum, biopsy: Lymphocytic colitis. E. Colon, ascending, biopsy: Lymphocytic colitis; patchy crypt activity. F. Colon, transverse, polypectomy: Tubular adenoma; negative for high-grade dysplasia or carcinoma. G. Colon, transverse, biopsy: Lymphocytic colitis. H. Colon, descending, biopsy: No tissue present. I. Colon, sigmoid, biopsy: Colonic mucosa with prominent lymphoid aggregate and increased intraepithelial lymphocytes. J. Rectum, biopsy: Lymphocytic colitis with denuded/sloughed surface epithelium. COMMENT: Lymphocytic colitis is a non-specific pattern of inflammation. The differential diagnosis includes idiopathic lymphocytic/microscopic colitis, drug effect, resolving infection, and severe cases of celiac disease. 07/19/25: Here for follow up as televisit. Had 2 back to back hospitalizations for colitis . [place] bx reviewed with the pt, pos for lymphocytic colitis. Currently reports 5-6 BMs per day which are green. Does not take any antidiarrheal. 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 Surgical History History of open reduction and internal fixation (ORIF) procedure S/P repair of paraesophageal hernia Hx of colonoscopy History of cholecystectomy Family History Father CAD (coronary artery disease) Maternal Grandmother HTN (hypertension), benign Father No problems noted. 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, 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 Female Reproductive History Menstrual Age of Menarche: 8 Review of Systems Const All systems reviewed & are unremarkable except as noted in HPI and below Physical Exam Exam Exam: Video visit: No acute distress No icterus noted No facial asymmetry Speaking in full sentences Telehealth Telehealth Telehealth Platform: [email or web address] Location of provider rendering services: practice address Location of patient: address on file Patient Identification confirmed using: Name, : Yes Telehealth method: video Patient verbally consented to treatment: Yes Patient verbally consented to billing insurance company: Yes Patient informed of any privacy concerns related to visit: Yes Minutes spent on Phone/Video with Pt.: 8 Assessment & Plan Assessment & Plan (1) Chronic diarrhea: Code(s): K52.9 - Noninfective gastroenteritis and colitis, unspecified Category: Medical (2) Lymphocytic colitis: Code(s): K52.832 - Lymphocytic colitis Category: Medical Plan Patient with recurrent episodes of diarrhea in hospitalization with severity hydration. This likely in the setting of microscopic colitis, biopsies positive for lymphocytic colitis on most recent colonoscopy. Plan: -budesonide 9 mg p.o. once daily for 8 weeks, followed by taper -Imodium 2 mg for more than 3 loose stools despite taking budesonide -follow-up in 2 months Medications: New budesonide DR-ER 9 mg PO DAILY 60 ea 0RF 60 days loperamide (Imodium A-D) Take for more than 3 loose stools as needed 2 mg PO BID PRN 14 caps 0RF loose stool 7 days Coding Level of Care Code Tele Est Pt Level 4 (48800) Diagnoses Chronic diarrhea K52.9 Lymphocytic colitis K52.832
--- OUTSIDE RECORDS SUMMARY | 2025-07-19 14:19 | XMS_ITS | Clinical Summary ---
Author Organization [facility] Address [address] [place] [address] [place], [place] [phone] Phone Care Team Providers Care Running Rigger Name Role Phone Unavailable Primary Care Provider Unavailabl e Encounters Date Type Department Care Team Description 07/11/2025 Orders Only [facility] [address] [place] [address] Homehealth, Interface MD Gunner 05/22/2025 Orders Only [facility] [address] [place] [phone] Homehealth, Interface ProviderMD from Last 3 Months [...] file Medical Devices Not on file Insurance [facility] MEDICARE REPLACEMENT [facility] MEDICARE REPLACEMENT [place] [id number] [place] [address] MEDICARE REPLACEMENT [place] [id number] [facility] MEDICARE REPLACEMENT Additional Source Comments The information contained in this document represents components of the legal health record. It is not the complete legal health record.[facility]
== END ==
PROVIDERS: PCP Internal Medicine; Visit Provider Internal Medicine
DX: K52.9 Noninfective gastroenteritis and colitis, unspecified (principal); K52.832 Lymphocytic colitis
CPT/HCPCS: 99214

== ENCOUNTER 2025-08-25 11:16 | Outpatient (AMB) | payer MEDICARE, SELFPAY ==
--- NOTE | 2025-08-25 11:31 | A.OFFPSYCH_ITS ---
Intake Intake Visit Reasons: depression Allergies Codeine Sulfate Allergy (Severe, Verified 07/19/25 11:08) Anaphylaxis diphenhydramine (From Benadryl) Allergy (Intermediate, Verified 07/19/25 11:08) sweats, palpitation egg Allergy (Intermediate, Verified 07/19/25 11:08) Heartburn Sulfa (Sulfonamide Antibiotics) (SULFA (SULFONAMIDE ANTIBIOTICS)) Allergy (Intermediate, Verified 07/19/25 11:08) RASH cefuroxime Adverse Reaction (Intermediate, Verified 07/19/25 11:08) leon tirado Medication List - Last Reconciled 08/25/25 by Thierry Moraes MD amlodipine 5 mg See Protocol PO BEDTIME budesonide DR-ER 9 mg PO DAILY 60 days buspirone 15 mg PO BID carvedilol 25 mg PO BID cholecalciferol (vitamin D3) 25 mcg PO DAILY doxepin (Silenor) 6 mg PO BEDTIME PRN 30 days ferrous sulfate 325 mg PO DAILY hydroxyzine HCl 10 mg PO BEDTIME PRN 90 days loperamide (Imodium A-D) 2 mg PO BID PRN 7 days lorazepam 0.5 mg PO TID PRN magnesium oxide 400 mg PO DAILY omeprazole 40 mg PO DAILY@0630 paroxetine HCl 40 mg PO BEDTIME 90 days potassium chloride ER 20 mEq PO DAILY HPI- Psychiatric Chief Complaint: depression HPI Narrative: Patient seen psychiatric follow-up. Patient have having some periods of depression and anxiety patient remains on Paxil feels not well treated by some of the specialty groups keep cancelling appointments on her.. Patient has difficulty with sleep. She is getting some supportive home and that is somewhat helpful. She does have a drop foot is scheduled to have a brace fitted. Past Psychiatric History: Patient has chronic history of panic somatic preoccupations mild depressive episodes. Patient has generally been doing okay she lives with her niece in the same building to family house. Some chronic anxiety related to chronic allergy symptoms have been encouraged visit to commissary production supervisor or ENT which she has not pursued Librium has been cut in half over time history of panic attacks and anxiety generally stable with Paxil buspirone denies over medication does have some degree of chronic balance problems week and discussed possibility of physical therapy for strengthening and balance. She is also seen by rheumatology Mental Status Exam Mental Status Exam Patient Appearance: Well Grooomed Patient Orientation: Person, Place, Time and Situation Level of Consciousness: Awake Patient Behavior: Anxious and Distractible Mood Description: Depressed and Anxious Affect Description: Constricted and Anxious Ability to Follow Directions: Good Memory Description: Intact Hallucinations: None Delusions: Not Present Thought Process: Rumination Depressive Symptoms: Increased Anxiety, Difficulty Sleeping, Loss of Int. in Activity and Loss of Energy Judgement: Fair Judgement and Insight: Patient feeling overwhelmed unsafe living alone open to supportive services Assessment and Plan Assessment & Plan (1) Panic disorder [episodic paroxysmal anxiety]: Status: Acute Code(s): F41.0 - Panic disorder [episodic paroxysmal anxiety] (2) Generalized anxiety disorder: Status: Acute Code(s): F41.1 - Generalized anxiety disorder (3) HTN (hypertension), benign: Status: Acute Code(s): I10 - Essential (primary) hypertension (4) Dysthymia: Status: Acute Code(s): F34.1 - Dysthymic disorder Plan Because of ongoing depressive symptoms discussed with patient trial of Wellbutrin 100 mg SR daily blood pressure 128 over 84. Patient advised to monitor for increased anxiety agitation hypertension. Medications: New 2 bupropion HCl SR 100 mg PO DAILY 30 tabs 1RF 30 days Counseling and coordination of Care Details-Self Mgmt counseling: Discussed different living options that might help the patient feel more secure ways to challenge negative thinking Diagnosis and Prognosis Counseling: Impact of diagnosis on life functions and Adequacy of current interventions Details: I spent [39] minutes reviewing the record, seeing the patient and documenting in the medical record. Counseling provided to the patient/caregiver as outlined below. Addressed patient/caregiver concerns regarding current medication regime including effective adherence. Addressed patient/caregiver concerns regarding diagnosis and prognosis including accuracy of diagnosis, prognosis over time, impact of diagnosis. Addressed patient/caregiver concerns regarding impact of recent stressors. 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 Surgical History History of open reduction and internal fixation (ORIF) procedure S/P repair of paraesophageal hernia Hx of colonoscopy History of cholecystectomy Family History Father CAD (coronary artery disease) Maternal Grandmother HTN (hypertension), benign Father No problems noted. 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 The mother is she has a brother with PTSD family history of depression She never no children Substance History: none Trauma History: NA Coding Level of Care Code Est Pt Level 3 (92172) Therapy 30m w/E&M (88333) Diagnoses Panic disorder [episodic paroxysmal anxiety] F41.0 Generalized anxiety disorder F41.1 HTN (hypertension), benign I10 Dysthymia F34.1
--- OUTSIDE RECORDS SUMMARY | 2025-08-25 13:40 | XMS_ITS | Clinical Summary ---
Author Organization [facility] Address [address] [place] [address] [place] [phone] Phone Care Team Providers Care Director Medicaid Name Role Phone Unavailable Primary Care Provider Unavailabl e Encounters Date Type Department Care Team Description 07/11/2025 Orders Only [facility] [address] [place] [address] Homehealth, Interface ProviderMD from Last 3 Months [...] file Medical Devices Not on file Insurance [facility] MEDICARE REPLACEMENT [facility] MEDIC[facility] REPLACEMENT [facility] MEDIC[facility] REPLACEMENT Additional Source Comments The information contained in this document represents components of the legal health record. It is not the complete legal health record.[facility]
== END 2025-08-25 16:07 | disposition home or self-care (01) ==
LOC: HO.HOP 11:16
PROVIDERS: PCP Internal Medicine; Visit Provider Psychiatry & Neurology Psychiatry
DX: F41.0 Panic disorder [episodic paroxysmal anxiety] (principal); F41.1 Generalized anxiety disorder; I10 Essential (primary) hypertension; F34.1 Dysthymic disorder
CPT/HCPCS: 90833; 99213

== ENCOUNTER → 2025-08-25 11:16 | Outpatient (BNVA) | payer MEDICARE, SELFPAY | PROVIDERS: PCP Internal Medicine; Visit Provider Psychiatry & Neurology Psychiatry | DX: F41.0 Panic disorder [episodic paroxysmal anxiety] (principal); F41.1 Generalized anxiety disorder; I10 Essential (primary) hypertension; F34.1 Dysthymic disorder; Z79.899 Other long term (current) drug therapy; Z87.891 Personal history of nicotine dependence | CPT/HCPCS: 99212 ==

== ENCOUNTER 2025-09-07 15:43 | Outpatient (AMB) | payer MEDICARE, SELFPAY ==
--- NOTE | 2025-09-07 15:12 | A.OFFPSYCH_ITS ---
Intake Intake Visit Reasons: depression Allergies Codeine Sulfate Allergy (Severe, Verified 09/16/25 08:14) Anaphylaxis diphenhydramine (From Benadryl) Allergy (Intermediate, Verified 09/16/25 08:14) sweats, palpitation egg Allergy (Intermediate, Verified 09/16/25 08:14) Heartburn Sulfa (Sulfonamide Antibiotics) (SULFA (SULFONAMIDE ANTIBIOTICS)) Allergy (Intermediate, Verified 09/16/25 08:14) RASH cefuroxime Adverse Reaction (Intermediate, Verified 09/16/25 08:14) delerium paranoia HPI- Psychiatric Chief Complaint: depression HPI Narrative: I'm using the Virtual Scribe to record and transcribe our conversation. What was happening when you called Nichelle? You gave me more pills, and I wanted to tell you I was getting nightmares from them, one so real about killing someone. It scared me, and now I'm paranoid. You're talking about the bupropion? Yes, the last pill you gave me. You were taking it in the morning, right? Yes. That's a 100 mg pill. I sent it to the pharmacy. They're coming today or tomorrow. You felt more energy and maybe your mood was better, so I'm giving you one-third of the dose. Cut it in half. Okay. I'll cut the pill in half. Do you have a pill cutter? Yes, I can cut it. I hope it'll help your mood and give you energy without overstimulation. I don't want to feel like I'm going to hurt someone. Dreams can be intense. During the day, you felt wired, right? Yes. Try the smaller dose. If you tolerate it, keep it; if not, stop it, and we'll find something else It can cause agitation. I'm snappy, even with my dogs. Are you talking about now off the pill or on it? I'm off the pill now but still agitated. You're depressed and irritable. Yes, but I don't want to hurt anyone. It was horrible. Start the half tablet. If symptoms happen, stop it. Okay. Take a lorazepam and call in a few days. Leave a message with Nichelle. Okay. If unsure, I'll call you back. We could taper off Paxil and try something else, but it's a big project. I might do something too. We'd go slowly. Your main problem now, anxiety or depression? Anxiety, but depression worsens it. What are you worrying about? What's going to happen with the house? My foot is no good anymore, and the boiler costs $19,000 to fix. $19,0It was $25,000, but I got discounts. It's wiping out my bank account What kind of boiler? Steam heat, run by gas. A gas boiler for $19,000? I have a two-family house. Everything's gone up. There's only one boiler, right? Yes, I heat both apartments. It's a lot on my mind. Are you taking doxepin at bedtime? No, you said it didn't mix with bupropion. Try the half pill of bupropion. If it stimulates, stop it immediately. I'll be in the emergency room if needed. Remember the olanzapine (Zyprexa) for the antibiotic reaction? I don't remember that. Do you remember your response to it? No. I have reactions to many pills. My drawer is full of them. Let's make an appointment for next Thursday or by phone. Okay. If this doesn't help or agitates, just stop it. Tell Nichelle Thursday or . Okay. Make an appointment. We'll do it by phone. It's easier for me. I thought I couldn't do it, but I can. Medicare does their own thing. We need face to face occasionally, but for now? Okay. Did you get more than one bid? Yes, it was $25,000, but now $19,000. My [id number] paid $10,000 for her single-family. You could get good money for your house now. But where do I go? I don't want to live in assisted living. What about senior housing? I'd have to get rid of my dog. Are dogs not allowed? Not the one I have. There's no perfect solution, but if the house? I'm working on it. It's always on my mind. I'm trying to make a will and get things done in time. Do you have anyone close to help? My iuyfbz-ta-eig helps, and different people come to check on me. Do you have a family member to help make decisions? My hfxyvr-ad-acy said I can't leave the house to her or my niece due to government assistance. I need different choices. You may sell it at some point. I'm going day by day and trying to get my head together. Take it day by day. The boiler is the only emergency. No heat in winter is a problem. Let's talk Thursday. Take the Wellbutrin, a half tablet, in the morning, and call me around 1 PM to tell me how you feel. Past Psychiatric History: Patient has chronic history of panic somatic preoccupations mild depressive episodes. Patient has generally been doing okay she lives with her niece in the same building to family house. Some chronic anxiety related to chronic allergy symptoms have been encouraged visit to digital account manager or ENT which she has not pursued Librium has been cut in half over time history of panic attacks and anxiety generally stable with Paxil buspirone denies over medication does have some degree of chronic balance problems week and discussed possibility of physical therapy for strengthening and balance. She is also seen by rheumatology Mental Status Exam Mental Status Exam Patient Appearance: Appropriate Patient Orientation: Person, Place, Time and Situation Level of Consciousness: Awake Patient Behavior: Appropriate Mood Description: Depressed and Anxious Affect Description: Constricted and Apprehensive Ability to Follow Directions: Good Speech Pattern: Clear Memory Description: Intact Hallucinations: None Delusions: Not Present Thought Process: Rumination and Linear Thought Content: positive for Preoccupation and negative for Suicidal Ideation Depressive Symptoms: Increased Anxiety, Difficulty Sleeping, Loss of Int. in Act ivity, Hopelessness, Isolating-Friends/Family, Thoughts of /Suicide and Loss of Energy Judgement: Fair (Patient denies plan or intent states at times she was suffering so much that she would mind if she was not here) Telehealth Telehealth Telehealth [facility] Location of provider rendering services: practice address Location of patient: address on file Patient Identification confirmed using: Name, : Yes Telehealth method: voice only Patient verbally consented to treatment: Yes Patient verbally consented to billing insurance company: Yes Patient informed of any privacy concerns related to visit: Yes Minutes spent on Phone/Video with Pt.: 14 Assessment and Plan Assessment & Plan (1) Dysthymia: Status: Acute Code(s): F34.1 - Dysthymic disorder (2) Panic disorder [episodic paroxysmal anxiety]: Status: Acute Code(s): F41.0 - Panic disorder [episodic paroxysmal anxiety] (3) Generalized anxiety disorder: Status: Acute Code(s): F41.1 - Generalized anxiety disorder Plan Pt to go to er if feeling unsafe pt will try low dose wellbutrin consider seroquel discussed with pt current stressors different options and current financial stress cont paxil 40 mg devora 0.5 tid prn buspar Counseling and coordination of Care Medication management counseling: Effectiveness, Side effects and Dosing range Diagnosis and Prognosis Counseling: Accuracy of diagnosis, Prognosis over time, Impact of diagnosis on life functions and Adequacy of current interventions Details: I spent [20] minutes reviewing the record, seeing the patient and documenting in the medical record. Counseling provided to the patient/caregiver as outlined below. Addressed patient/caregiver concerns regarding current medication regime including effective adherence. Addressed patient/caregiver concerns regarding diagnosis and prognosis including accuracy of diagnosis, prognosis over time, impact of diagnosis. Addressed patient/caregiver concerns regarding impact of recent stressors. 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 Sinusitis Asthma Generalized anxiety disorder Mood disorder, drug-induced Panic disorder [episodic paroxysmal anxiety] Dysthymia Hypertension Diverticulitis CVA (cerebral vascular accident) Vertigo Irritable bowel syndrome with both constipation and diarrhea GERD (gastroesophageal reflux disease) Depression with anxiety Lupus Surgical History History of open reduction and internal fixation (ORIF) procedure S/P repair of paraesophageal hernia Hx of colonoscopy History of cholecystectomy Family History Father CAD (coronary artery disease) Maternal Grandmother HTN (hypertension), benign Father No problems noted. Mother Hypertension Asthma COPD (chronic obstructive pulmonary disease) Breast cancer, Onset Age: 101 Social History Household Members: None Household Members Other:: NEIC Housing: House Are you a primary field care manager to a significant other at home: No Do you presently have visiting nurse or other home services: Yes (meals, homemaker and home health aide) Alcohol intake: former Patient Tobacco Use Status: Former Tobacco user Tobacco use type: Cigarette Years Smoked: quit greater than 10 years ago Smoked in Last 30 Days: No e-Cigarette/Vaping Use: Former Use Patient Interested in Nicotine Replacement: No Patient Given Instructions on How to Stop Smoking: No Second Hand Smoke Exposure: No Use of substances other than those prescribed or required for medical reasons: No Currently Displaying Signs/Symptoms of Drug Intoxication Withdrawal: No Have you been hit, kicked, punched, or otherwise hurt by someone within the past year? If so, by whom?: No Do you feel safe in your current relationship?: No Current Relationship Is there a partner from a previous relationship who is making you feel unsafe now?: No Are you made to feel afraid or neglected: No Restorationist Healthcare Practices: Yazidism Advance Directives: Yes Advance Directives Information Provided: No Advance Directives on File: Yes Advance Directives Date on File: 04/07/23 Do you have thoughts of harming others: None Do you have a plan to hurt others: No Plan Recently lost weight without trying: Yes How much weight loss: 2-13 pounds Eating poorly because of decreased appetite: Yes Nutrition screen score: 4 Nutrition Risks: Acute nausea or vomiting x1 week Patient : No : No Poor oral hygiene: No service: No Current occupational status: retired 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 The mother is she has a brother with PTSD family history of depression She never no children Substance History: none Trauma History: NA Coding Level of Care Code Tele Est Pt Level 3 (78751) Diagnoses Dysthymia F34.1 Panic disorder [episodic paroxysmal anxiety] F41.0 Generalized anxiety disorder F41.1
--- OUTSIDE RECORDS SUMMARY | 2025-09-07 18:30 | XMS_ITS | Clinical Summary ---
Author Organization [facility] Address [address] [place] [address] [place] [phone] Phone Care Team Providers Care Material Control Clerk Name Role Phone Unavailable Primary Care Provider Unavailabl e Encounters Date Type Department Care Team Description 07/11/2025 Orders Only [facility] [address] [place] [address] Homehealth, Interface ProviderMD from Last 3 Months [...] file Medical Devices Not on file Insurance [facility] MEDICARE REPLACEMENT [facility] MEDIC[facility] REPLACEMENT [facility] MEDIC[facility] REPLACEMENT Additional Source Comments The information contained in this document represents components of the legal health record. It is not the complete legal health record.[facility]
== END 2025-09-07 15:44 | disposition home or self-care (01) ==
LOC: HO.HOP 15:43
PROVIDERS: PCP Internal Medicine; Visit Provider Psychiatry & Neurology Psychiatry
DX: F34.1 Dysthymic disorder (principal); F41.0 Panic disorder [episodic paroxysmal anxiety]; F41.1 Generalized anxiety disorder
CPT/HCPCS: 99213

== ENCOUNTER 2025-09-16 08:08 | Inpatient (IN) | payer MEDICARE, OTHER, SELFPAY ==
[2025-09-16 08:11] VITALS: BP 135/103; PULSE 80; RESP 16; O2SAT 97; BMI 19.5
--- NOTE | 2025-09-16 08:26 | ED.OVERDOSE ---
HPI - Overdose General Chief Complaint: Overdose Stated Complaint: overdose? Time Seen by Provider: 09/16/25 08:19 Source: patient and other (sister) Mode of arrival: ambulatory Limitations: no limitations History of Present Illness ED Provider: SUNG Luna HPI Narrative: Chief Complaint: ?I took 9 ? Ativan tablets last night.? History of Present Illness: The patient presents to the ED after ingesting 9.5 tablets of 0.5 mg lorazepam (~4.75 mg total) yesterday at approximately 1800 in the context of ongoing frustration with undiagnosed medical issues and passive suicidal ideation. She reports repeated hospitalizations over the past year without clear answers, as well as a recent foot injury causing impaired mobility; she describes her foot as no good and that she is strapping her on the floor, indicating significant disability. She describes thoughts of harming herself and her Ruddy Gonzales dog. She denies a specific plan or intent at this moment. She endorses auditory hallucinations (voices telling her to ?set fire to the house?) but denies visual hallucinations. She reports chronic diarrhea attributed to a prior E. coli infection, intermittent chest pain, mild current congestion, occasional subjective fevers/chills, and ?trouble breathing a little.? No recent or current psychiatric hospitalization. Past psychiatric history notable only for anxiety and depression; denies known diagnosis of schizophrenia or bipolar disorder. Denies alcohol and illicit drug use. Lives with her niece (sister?s daughter); relationship generally supportive at times. MD complaint: intentional overdose Onset (ago): day(s) (1) Timing confirmed by: family member Related Data Home Medications ?Medication ?Instructions ?Recorded ?Confirmed omeprazole 40 mg capsule,delayed 40 mg PO DAILY@0630 05/15/25 08/25/25 release potassium chloride 20 mEq 20 meq PO DAILY 05/15/25 08/25/25 tablet,extended release(part/cryst) carvedilol 25 mg tablet 25 mg PO BID 05/17/25 08/25/25 cholecalciferol (vitamin D3) 25 25 mcg PO DAILY 07/03/25 08/25/25 mcg (1,000 unit) tablet magnesium oxide 400 mg PO DAILY 07/03/25 08/25/25 buspirone 15 mg tablet 15 mg PO BID 07/11/25 08/25/25 Previous Rx's ?Medication ?Instructions ?Recorded paroxetine HCl 40 mg tablet 40 mg PO BEDTIME 90 days #90 tabs 03/03/25 ferrous sulfate 325 mg (65 mg 325 mg PO DAILY #60 tabs 05/22/25 iron) tablet,delayed release amlodipine 5 mg tablet 5 mg PO BEDTIME #90 tabs 07/06/25 doxepin 6 mg tablet (Silenor) 6 mg PO BEDTIME PRN sleep 30 days 07/13/25 #30 tabs hydroxyzine HCl 10 mg tablet 10 mg PO BEDTIME PRN insomnia 90 07/13/25 days #90 tabs lorazepam 0.5 mg tablet 0.5 mg PO TID PRN anxiety #90 tabs 07/13/25 loperamide 2 mg capsule (Imodium 2 mg PO BID PRN loose stool 7 days 07/19/25 A-D) #14 caps budesonide 6 mg capsule,extended 6 mg PO DAILY 4 weeks #28 caps 09/06/25 release bupropion HCl 75 mg tablet 37.5 - 75 mg (0.5 - 1 x 75 mg) PO 09/06/25 DAILY 30 days #30 tabs Allergies Allergy/AdvReac Type Severity Reaction Status Date / Time Codeine Sulfate Allergy Severe Anaphylaxis Verified 09/16/25 08:14 diphenhydramine (From Allergy Intermediate sweats, Verified 09/16/25 08:14 Benadryl) palpitation egg Allergy Intermediate Heartburn Verified 09/16/25 08:14 Sulfa (Sulfonamide Allergy Intermediate RASH Verified 09/16/25 08:14 Antibiotics) (SULFA (SULFONAMIDE ANTIBIOTICS)) cefuroxime AdvReac Intermediate delerium Verified 09/16/25 08:14 ,paranoia Review of Systems Review of Systems: Yes all other systems are reviewed and are negative [facility] Past Medical History Attestation statement: The following information was validated with the patient. 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 Surgical History History of open reduction and internal fixation (ORIF) procedure S/P repair of paraesophageal hernia Hx of colonoscopy History of cholecystectomy Family History Family History Father CAD (coronary artery disease) Maternal Grandmother HTN (hypertension), benign Father No problems noted. Mother Hypertension Asthma COPD (chronic obstructive pulmonary disease) Breast cancer, Onset Age: 101 Social History Social History Household Members: Other Household Members Other:: NENNEKA Housing: House Are you a primary child care attendant school to a significant other at home: No Do you presently have visiting nurse or other home services: No Alcohol intake: former Patient Tobacco Use Status: Former Tobacco user Tobacco use type: Cigarette Years Smoked: quit greater than 10 years ago Smoked in Last 30 Days: No Second Hand Smoke Exposure: No Use of substances other than those prescribed or required for medical reasons: No Advance Directives: Yes Advance Directives on File: Yes Advance Directives Date on File: 04/07/23 Do you have a plan to hurt others: Vague service: No Current occupational status: retired 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 Oriented X3.? No acute distress.? Head: Normocephalic, atraumatic, no step-offs or deformities Eyes: Pupils equal, round and reactive to light.? ENT: Pharynx normal.??External ears normal, TMs normal bilaterally and EAC's normal. No pain with manipulation of external ears bilaterally. No mastoid tenderness. Neck: Normal inspection.? Neck supple.? CVS: Normal heart rate and rhythm.? Pulses normal.? Respiratory: No respiratory distress.? Breath sounds normal.? Abdomen: Soft and nontender.? Skin: Skin warm and dry.? Normal skin color.? Normal skin turgor.? Extremities: No lower extremity edema.? No calf ttp. 5/5 strength to bilateral upper and lower extremities Back: No midline tenderness, no C-spine tenderness, full range of motion, no CVA tenderness bilaterally Neuro: Oriented X 3.? No motor deficit.? No sensory deficit. CN 2-12 intact Vital Signs: Vital Signs: Last Vital Signs Pulse 66 09/16/25 10:42 Resp 16 09/16/25 10:42 BP 147/78 H 09/16/25 10:42 Pulse Ox 99 09/16/25 10:42 O2 Del Method Room Air 09/16/25 10:42 BMI result Body Mass Index 19.5 vss Course Reevaluation(s) Reevaluation #1: CBC unremarkable. Chemistry with no acute findings needing intervention. Salicylates, acetaminophen negative. EKG initially obtained at 08:48, normal sinus rhythm no ischemic changes normal QT/QTC. Time: 10:00 Reevaluation #2: Poison control was contacted who recommends basic labs, liver functions and a serial EKGs for the next few hours. Then patient will be cleared for evaluation by care team Time: 10:20 Reevaluation #3: Repeat EKGs stable. No acute abnormalities. At this time patient cleared medically. Pending crisis evaluation. At this time patient will be placed into observation to allow more time for evaluation by care team Time: 12:30 Medical Decision Making Medical Decision Making MDM Narrative: 0831 Adult female presenting after intentional lorazepam ingestion with passive suicidal ideation, auditory hallucinations, and chronic medical complaints. Patient is hemodynamically stable on presentation (vital signs to be obtained). Will proceed with medical clearance and behavioral health evaluation. Problem #1: Intentional lorazepam overdose Assessment: Ingested ~4.75 mg lorazepam yesterday at 1800. Currently alert and conversant; timeline suggests drug effect has likely waned. Plan: Lab work and urine studies for medical clearance. EKG to assess rhythm/QTc. Problem #2: Suicidal ideation / self-harm thoughts Assessment: Passive SI without active plan; thoughts of harming self and dog. Plan: Behavioral health team to evaluate after medical clearance. Maintain safety precautions in ED. Problem #3: Auditory hallucinations Assessment: Voices commanding patient to ?set fire to the house.? No visual hallucinations. Plan: Psychiatric evaluation for possible psychotic disorder. Problem #4: Chronic diarrhea (history of E. coli infection) Assessment: Ongoing constant diarrhea per patient. Plan:CMP will be checked , follow up with pcp Problem #5: Congestion / mild dyspnea Assessment: Mild respiratory symptoms today. Plan: Follow-up arrangements to be determined after psychiatric evaluation. My evaluation NIH stroke scale 0. Patient able to ambulate no focal neurological deficits Differential Diagnosis Differential Diagnoses: The differential diagnosis associated with the presentation includes (see below ) Major depressive disorder with psychotic features: Mood lability, passive suicidal ideation, and auditory hallucinations may indicate a severe depressive episode with psychosis. Brief psychotic disorder: Acute onset of hallucinations and dissociation in the context of stressors and medical illness. Schizoaffective disorder: Combination of mood symptoms and psychotic features, though no prior history reported. Substance-induced mood/psychotic disorder (including benzodiazepine toxicity/withdrawal): Recent lorazepam overdose could contribute to mood and perceptual disturbances. Adjustment disorder with depressed mood: Psychological response to chronic medical issues and disability. Delirium (due to infection or metabolic derangement): Chronic diarrhea, subjective fevers/chills, and acute psychiatric symptoms may be secondary to underlying medical causes. Generalized anxiety disorder: History of anxiety and ongoing stressors. PTSD or dissociative disorder: Dissociation and mood lability may reflect trauma-related pathology. Medical causes of psychiatric symptoms: Electrolyte disturbance, thyroid dysfunction, EDUCATIONAL INTERPRETER infection, or other metabolic derangements could present with psychiatric symptoms. Factitious disorder or malingering (less likely): Considered in the absence of clear organic or psychiatric etiology, though not strongly suggested by current presentation. Admission/Observation Consideration of admission/observation: Escalation of care including admission/observation considered (possible ) Consult Healthcare Provider Management of the patient was discussed with: Behavioral Health Provider Lab Data MDM Lab Attestation statement: I reviewed the patient's lab results. 09/16/25 08:35 09/16/25 08:35 Labs: Lab Results 09/16/25 09/16/25 Range/Units 08:35 09:20 WBC 5.4 (4.8-10.8) X10*3/uL RBC 4.27 (4.20-5.50) X10*6/uL Hgb 13.0 (12.0-16.0) g/dl Hct 38.3 (37.0-47.0) % MCV 89.7 (80.0-98.0) fL MCH 30.4 (27.0-33.0) pg MCHC 33.9 (31.0-35.0) g/dl RDW 12.8 (11.0-16.0) % Plt Count 258 (160-400) X10*3/uL MPV 8.8 L (9.4-12.3) fL Immature Gran % (Auto) 0.2 (0.0-0.4) % Neut % (Auto) 66.8 (45-73) % Lymph % (Auto) 22.7 (20-40) % [place] % (Auto) 8.1 (2-11) % Eos % (Auto) 1.5 (0-4) % Baso % (Auto) 0.7 (0-2) % Lymph # (Auto) 1.2 (1.2-4.9) X10*3/uL [place] # (Auto) 0.4 (0.1-1.2) X10*3/uL Eos # (Auto) 0.1 (0.0-0.4) X10*3/uL Baso # (Auto) 0.0 (0.0-0.2) X10*3/uL Abs Immat Gran (auto) 0.01 (0.00-0.03) X10*3/uL Absolute Neuts (auto) 3.6 (2.0-8.3) x10*3/uL Absolute Nucleated RBC 0.000 (0.0-0.012) X10*3/uL Nucleated RBC % (auto) 0.0 (0.0-0.2) /100WBC Sodium 140 (135-145) mmol/L Potassium 4.2 (3.3-5.1) mmol/L Chloride 108 (96-108) mmol/L Carbon Dioxide 21 L (22-29) mmol/L Anion Gap 15 (12-20) BUN 12 (9-16) mg/dL Creatinine 0.78 (0.5-1.4) mg/dL Estim Creat Clear Calc 43.9 Estimated GFR > 60 Random Glucose 89 (60-115) mg/dL Calcium 9.4 (8.4-10.2) mg/dL Magnesium 1.9 (1.6-2.6) mg/dL Total Bilirubin 0.3 (0.0-1.0) mg/dL AST 22 (5-31) U/L ALT 8 (0-31) U/L Alkaline Phosphatase 71 (39-117) U/L Total Protein 6.6 (6.5-8.0) g/dL Albumin 4.3 (3.5-5.0) g/dL Salicylates < 5.0 L (15-30) mg/dL Acetaminophen < 3 (<30) mcg/mL Ethyl Alcohol < 10 mg/dL COVID-19 ([facility]) Negative (Negative) COVID-19 Clin Com See Note Influenza Type A ([facility]) Negative (Negative) Influenza Type B ([facility]) Negative (Negative) Influenza A & B Note See Note Independent Interpretation I performed an independent interpretation of an: EKG (Ventricular rate 72, DC normal, QRS normal, QT/QTC normal. EKG normal sinus rhythm no signs of ischemia nondiagnostic free chief complaint) Radiology Impression Discussion of test interpretation with radiology: I have reviewed the radiologist's reading. Independent Historian Clinical information obtained from an independent historian. History obtained from or confirmed by: Other (Patient's sister) External Record Review External record reviewed: Inpatient record, Office record, Outpatient record, Prior outpatient labs, Prior outpatient radiology, Primary care record and Outside ED record Chronic Conditions Patient?s care impacted by: Other (see PMFSH ) Social Determinants Patient?s care significantly limited by Social Determinants of Health including: Other Social Determinant of Health Critical Care Time Critical Care Time Critical Care Time: Yes Total Critical Care Time: 35 Attestation: I attest to this time spent taking care of the patient, obtaining history, physical, reviewing labs, imaging, treatment of patients condition +/- specialist/hospitalist consult +/- procedure Discharge Plan Discharge Clinical Impression: Drug overdose, Generalized anxiety disorder Prescriptions: No Action budesonide 6 mg capsule, extended release 6 mg PO DAILY 28 Days Qty: 28 0RF Rx Instructions: start taper once 9 mg dosing is complete. Take 6 mg once daily x 4 weeks and then 3 mg once daily x 4 weeks bupropion HCl 75 mg tablet 37.5 - 75 mg PO DAILY 30 Days Qty: 30 1RF cholecalciferol (vitamin D3) 25 mcg (1,000 unit) Tablet 25 mcg PO DAILY magnesium oxide 400 mg magnesium Tablet 400 mg PO DAILY amlodipine 5 mg Tablet 5 mg PO BEDTIME Qty: 90 0RF Protocol: Hold for SBP< HOLD for SBP < : 90 buspirone 15 mg tablet 15 mg PO BID carvedilol 25 mg tablet 25 mg PO BID ferrous sulfate 325 mg (65 mg iron) tablet,delayed release (DR/EC) 325 mg PO DAILY Qty: 60 0RF paroxetine HCl 40 mg tablet 40 mg PO BEDTIME 90 Days Qty: 90 1RF lorazepam 0.5 mg tablet 0.5 mg PO TID PRN (Reason: anxiety) Qty: 90 2RF Rx Instructions: can cause balance problems hydroxyzine HCl 10 mg tablet 10 mg PO BEDTIME PRN (Reason: insomnia) 90 Days Qty: 90 1RF doxepin [Silenor] 6 mg tablet 6 mg PO BEDTIME PRN (Reason: sleep) 30 Days Qty: 30 2RF omeprazole 40 mg capsule,delayed release(DR/EC) 40 mg PO DAILY@0630 potassium chloride 20 mEq tablet,ER particles/crystals 20 meq PO DAILY loperamide [Imodium A-D] 2 mg capsule 2 mg PO BID PRN (Reason: loose stool) 7 Days Qty: 14 0RF Rx Instructions: Take for more than 3 loose stools as needed Print Language: [place] Islander
--- NOTE | 2025-09-16 08:33 | ECG_ITS ---
Test Reason : OVERDOSE Blood Pressure : */* mmHG Vent. Rate : 72 BPM Atrial Rate : 72 BPM P-R Int : 138 ms QRS Dur : 70 ms QT Int : 398 ms P-R-T Axes : 43 -26 30 degrees QTcB Int : 435 ms Normal sinus rhythm Cannot rule out Anterior infarct (cited on or before 04-Jun-2024) Abnormal ECG When compared with ECG of 03-Jul-2025 13:09, No significant change was found Referred By: Dawn Luna Electronically Signed By: SHANTELLE GU MD
[2025-09-16 08:39] LABS: MANUAL DIFF FLAG NO
[2025-09-16 08:41] LABS: Hematocrit 38.3 % (37.0-47.0); Hemoglobin 13.0 g/dl (12.0-16.0); Imm Gran Abs Auto 0.01 X10*3/uL (0.00-0.03); Imm Gran Pct Auto 0.2 % (0.0-0.4); Lymphocytes Absolute Auto 1.2 X10*3/uL (1.2-4.9); Mean Corpuscular HGB Conc 33.9 g/dl (31.0-35.0); Mean Corpuscular Hemoglobin 30.4 pg (27.0-33.0); Mean Corpuscular Volume 89.7 fL (80.0-98.0); NRBC Abs Auto 0.000 X10*3/uL (0.0-0.012); NRBC Pct Auto 0.0 /100WBC (0.0-0.2); Platelet Count 258 X10*3/uL (160-400); Red Blood Count 4.27 X10*6/uL (4.20-5.50); White Blood Count 5.4 X10*3/uL (4.8-10.8)
--- NOTE | 2025-09-16 09:04 | PC.NURSE ---
poison control poison control was called, recommendations despite the ingestion being 6pm 09/15/25 is to do ekg q2h x3, liver panel with chemistry, urine drug tox. watch for brine mixer operator/resp depression and monitor patient for 6-8 hours to ensure she stays at baseline. will notify provider and charge.
[2025-09-16 09:23] LABS: Acetaminophen LAB < 3 mcg/mL (<30); Alanine Aminotransferase 8 U/L (0-31); Albumin Level 4.3 g/dL (3.5-5.0); Alkaline Phosphatase 71 U/L (39-117); Anion Gap 15 (12-20); Aspartate Amino Transferase 22 U/L (5-31); Blood Urea Nitrogen 12 mg/dL (9-16); Calcium 9.4 mg/dL (8.4-10.2); Carbon Dioxide 21 mmol/L (22-29); Chloride 108 mmol/L (96-108); Creatinine Clr Calc Pharmacy 43.9; Estimated Glomerular Filt Rate > 60; Magnesium 1.9 mg/dL (1.6-2.6); Potassium 4.2 mmol/L (3.3-5.1); Salicylate < 5.0 mg/dL (15-30); Sodium 140 mmol/L (135-145); Total Protein 6.6 g/dL (6.5-8.0)
[2025-09-16 09:50] LABS: COVID-19 Test Negative (Negative); IDNOW Serial# 55D5AD1C; IDNOW Serial# 58CA691E; Influenza B2 Negative (Negative)
--- NOTE | 2025-09-16 10:10 | ECG_ITS ---
Test Reason : OD Blood Pressure : */* mmHG Vent. Rate : 69 BPM Atrial Rate : 69 BPM P-R Int : 148 ms QRS Dur : 70 ms QT Int : 394 ms P-R-T Axes : 37 -24 21 degrees QTcB Int : 422 ms Normal sinus rhythm Minimal voltage criteria for LVH, may be normal variant ( R in aVL ) Cannot rule out Anterior infarct (cited on or before 04-Jun-2024) Abnormal ECG When compared with ECG of 16-Sep-2025 08:48, No significant change was found Referred By: Dawn Luna Electronically Signed By: SHANTELLE GU MD
--- NOTE | 2025-09-16 10:37 | PC.NURSE ---
repeat ekg performed
[2025-09-16 10:42] VITALS: BP 147/78; PULSE 66; RESP 16; O2SAT 99
--- NOTE | 2025-09-16 10:42 | MHC.EDTECH ---
pt was notified a request for urine sample, I have attempted twice. pt state she doesnt have to go.
--- NOTE | 2025-09-16 11:21 | PC.NURSE ---
report given to Neena, pt IV removed and pt went to Pod.
--- NOTE | 2025-09-16 19:00 | PC.NURSE ---
This contract technical writer assumed care of this Pt at this time. Pt in bed appears to be sleeping at this time.
[2025-09-16 20:56] VITALS: BP 137/84; PULSE 73; RESP 16; TEMP 36.2; O2SAT 98
[2025-09-16 21:15] LABS: Appearance Urine Cloudy; Glucose Urine UA Negative (Negative); PH 5.5 (5.0-9.0); Specific Gravity - Urine 1.025 (1.005-1.025); UMIC TRIGGER UACC YES
[2025-09-16 21:23] LABS: UACC Culture Trigger YES
[2025-09-16 21:25] LABS: Cannabinoid Screen Urine Not Detected (Not Detect)
--- NOTE | 2025-09-17 02:34 | PC.NURSE ---
Pt awake, ambulated to BR with walker.
[2025-09-17 02:49] VITALS: BP 136/85; PULSE 81; RESP 15; TEMP 36.3; O2SAT 99
--- NOTE | 2025-09-17 08:04 | PC.NURSE ---
Assumed care of patient at 0645, patient appears to be in no apparent distress this am, sleeping, respirations even and unlabored. Continue plan of care for IPLOC
--- NOTE | 2025-09-17 09:55 | PC.NURSE ---
Contacted pharmacy twice for Bupropion 75mg as med is not available down in the pod pyxis at this time
[2025-09-17 11:11] VITALS: BP 134/72; PULSE 79; RESP 20; TEMP 36.3; O2SAT 96
[2025-09-17 14:33] VITALS: BP 96/65; PULSE 73; RESP 14; TEMP 37.1; O2SAT 100
[2025-09-17 20:37] VITALS: BP 100/59; PULSE 70; RESP 18; TEMP 36.6; O2SAT 97
[2025-09-17 20:39] VITALS: BP 100/59
--- NOTE | 2025-09-17 22:24 | PC.NURSE ---
Assumed care at 1845. Patient presents as calm and cooperative. Adherent to HS scheduled medications. Utilized PRN 0.5 Ativan for reported increased anxiety. C/o 10/10 lower back pain and requests extra strength Tylenol. MD Stanford made aware, order for 975mg Acetaminophen obtained/administered, unable to assess effect d/t patient currently sleeping. Endorses passive SI, no plan/intent. Denies HI/AVH. Agreeable to alert staff if feeling unsafe. 15 minute safety checks ongoing. Continue plan of care for IPLOC.
--- NOTE | 2025-09-17 22:43 | PC.NURSE ---
Patient observed ambulating using walker with steady gait. Requested additional PRN for Insomnia. Administered 10mg PRN Atarax, pending effect. Will continue to monitor for safety...
--- NOTE | 2025-09-18 03:09 | PC.NURSE ---
Patient approached nurses station requesting PRN for sleep and pain. C/o 10/10 lower back pain, unrelieved by previous PRN for pain. MD Montiel made aware, 1x order for PRN Trazodone,Tylenol, and Gabapentin obtained/administered, pending effect. Will continue to monitor for safety.
[2025-09-18 06:16] VITALS: BP 121/62; PULSE 66; RESP 16; TEMP 36.6; O2SAT 98
--- NOTE | 2025-09-18 11:37 | PC.NURSE ---
Assumed care this am, Pt has remained calm and cooperative. she spends time in her room watching TV and dozing off. She ambulates well with a steady gait without the walker. She denies SI/HI at this time but is hesitant and avoidant when asked the questions.
--- NOTE | 2025-09-18 12:25 | MHC.CM.ED ---
Received notification patient is active with [facility]. Return referral made in [facility] so agency can follow for d/c needs.
[2025-09-18 14:36] VITALS: BP 94/54; PULSE 61; RESP 14; TEMP 36.2; O2SAT 97
[2025-09-18 16:27] VITALS: BP 126/69; PULSE 85; RESP 18; TEMP 36.4; O2SAT 99; BMI 20.7
--- NOTE | 2025-09-18 16:55 | PC.ADMIT ---
75 Year old white female admitted from our Pod #4 at 1600 via wheelchair today for short term geriatric psych stay for SA with Ativan and General Anxiety Disorder and Major Depressive Disorder. She also had some HI towards her dog and claimed voices were telling her to burn her house down. She is calm and cooperative with moderate anxiety and depression. She denies SI, HI and perceptual disturbances and stated, I wasn't trying kill myself with the Ativan, I was just trying to get some peace. Weight 106 pounds standing at 5 feet tall. 97.5-18-85-126/69 and O2 Sat 99% on room air. She is willing to sign in for medication adjustment, I want to feel better. Her affect is broad and she is alert and oriented x3 with some insight into her situation. She has medical diagnoses of HTN, Colitis, right foot drop and osteoarthritis in her back, shoulders and hips. Aga Haq DIGITAL TECH updated on admission and will see patient for legal status as soon as possible. Patient does not smoke, use illegal drugs or alcohol. Patient would like to get the Flu Vaccine while she is here. Patient had a large loose bowel movement today. She denies all SI, HI and perceptual disturbances at this time. Her appetite is good. She does have an allergy to Sulfa, Eggs, Codeine Sulfate, Diphenhydramine, antihistamines and cefuroxime. She has moderate pain in her left foot and she takes extra strength Tylenol at home as needed. No trauma history. Patient safety check and jacket changer completed. Patient oriented to unit. Patient walks with a cane/rollator at home but will need a walker here.
--- NOTE | 2025-09-18 17:04 | P.CONHOSP_ITS ---
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 Her medical workup revealed no anemia or leukocytosis. No electrolyte imbalances, no evidence of renal or liver impairment. Negative tox screen. Negative viral screen. Patient had a positive C diff infection in May 2025. Urine without evidence of infection. Patient had colonoscopy in April 2025 with recommendations to repeat in 5-7 years. Patient was seen outpatient by GI. Patient had a hiatal hernia repair in 09/2024. 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 On exam patient has no specific medical concerns. Reports ongoing chronic diarrhea. Denies any current neurological symptoms currently. Ambulates with a walker. Review of Systems 2 Review of Systems: Denies any shortness of breath, chest pain, headaches, dysuria, abdominal pain or discomfort, nausea, vomiting. +diarrhea. Denies fever or chills. 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 Mother Hypertension Asthma COPD (chronic obstructive pulmonary disease) Breast cancer, Onset Age: 89 Surgical History History of open reduction and internal fixation (ORIF) procedure S/P repair of paraesophageal hernia Hx of colonoscopy History of cholecystectomy Social History Household Members: None Household Members Other:: NEIC Housing: House Are you a primary pet care worker to a significant other at home: No Do you presently have visiting nurse or other home services: Yes (meals, homemaker and home health aide) Alcohol intake: former Patient Tobacco Use Status: Former Tobacco user Tobacco use type: Cigarette Years Smoked: quit greater than 10 years ago Smoked in Last 30 Days: No e-Cigarette/Vaping Use: Former Use Patient Interested in Nicotine Replacement: No Patient Given Instructions on How to Stop Smoking: No Second Hand Smoke Exposure: No Use of substances other than those prescribed or required for medical reasons: No Currently Displaying Signs/Symptoms of Drug Intoxication Withdrawal: No Have you been hit, kicked, punched, or otherwise hurt by someone within the past year? If so, by whom?: No Do you feel safe in your current relationship?: No Current Relationship Is there a partner from a previous relationship who is making you feel unsafe now?: No Are you made to feel afraid or neglected: No [facility] Practices: Am[employer] Advance Directives: Yes Advance Directives Information Provided: No Advance Directives on File: Yes Advance Directives Date on File: 04/07/23 Do you have thoughts of harming others: None Do you have a plan to hurt others: No Plan Recently lost weight without trying: Yes How much weight loss: 2-13 pounds Eating poorly because of decreased appetite: Yes Nutrition screen score: 4 Nutrition Risks: Acute nausea or vomiting x1 week Patient : No : No Poor oral hygiene: No service: No Current occupational status: retired 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, 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 Meds Allergies Allergy/AdvReac Type Severity Reaction Status Date / Time Codeine Sulfate Allergy Severe Anaphylaxis Verified 09/16/25 08:14 diphenhydramine (From Allergy Intermediate sweats, Verified 09/16/25 08:14 Benadryl) palpitation egg Allergy Intermediate Heartburn Verified 09/16/25 08:14 Sulfa (Sulfonamide Allergy Intermediate RASH Verified 09/16/25 08:14 Antibiotics) (SULFA (SULFONAMIDE ANTIBIOTICS)) cefuroxime AdvReac Intermediate delerium Verified 09/16/25 08:14 ,paranoia Active Medications: Current Medications Acetaminophen (Acetaminophen 325 Mg Tablet) 650 mg PO Q6H PRN PRN Reason: Headache/Pain, Scale 1-10 Al Hydroxide/Mg Hydroxide (Magnesium Hydrox/Alum Hydrox 30 Ml Oral.Susp) 30 ml PO Q6H PRN PRN Reason: Heartburn/Nausea Amlodipine Besylate (Amlodipine Besylate 5 Mg Tablet) 5 mg PO BEDTIME [facility]; Protocol Last Admin: 09/17/25 20:39 Dose: 5 mg Buspirone HCl (Buspirone Hcl 10 Mg Tablet) 10 mg PO BID [facility] Last Admin: 09/18/25 08:33 Dose: 10 mg Carvedilol (Carvedilol 25 Mg Tablet) 25 mg PO BID [facility]; Protocol Last Admin: 09/18/25 08:33 Dose: 25 mg Hydroxyzine HCl (Hydroxyzine Hcl 10 Mg Tablet) 10 mg PO BEDTIME PRN PRN Reason: Insomnia Last Admin: 09/17/25 22:40 Dose: 10 mg Lorazepam (Lorazepam 0.5 Mg Tablet) 0.5 mg PO TID PRN PRN Reason: Anxiety Stop: 09/23/25 10:33 Last Admin: 09/18/25 08:34 Dose: 0.5 mg Magnesium Hydroxide (Milk Of Magnesia 30 Ml Oral.Susp) 30 ml PO DAILY PRN PRN Reason: Constipation Omeprazole (Omeprazole 40 Mg Capsule.Dr) 40 mg PO DAILY@0630 [facility] Last Admin: 09/18/25 06:02 Dose: 40 mg Potassium Chloride (Potassium Chloride Er 20 Meq Tab.Er.Prt) 20 meq PO DAILY [facility] Trazodone HCl (Trazodone Hcl 50 Mg Tablet) 50 mg PO BEDTIME MRX1 PRN PRN Reason: Insomnia Home Medications ?Medication ?Instructions ?Recorded ?Confirmed ?Last Taken ?Type omeprazole 40 mg capsule,delayed 40 mg PO DAILY@0630 0 05/15/25 09/16/25 07/10/25 History release potassium chloride 20 mEq 20 meq PO DAILY 05/15/2507/03/25 History tablet,extended release(part/cryst) carvedilol 25 mg tablet 25 mg PO BID 05/17/2507/03/25 History buspirone 15 mg tablet 10 mg PO BID 07/11/25 Unknown History bupropion HCl 100 mg tablet,12 hr 100 mg PO QAM 09/16/25 Unknown History sustained-release bupropion HCl 75 mg tablet 75 mg PO QAM 09/16/2509/16 Unknown History lorazepam 0.5 mg tablet 0.5 mg PO TID PRN Anxiety 09/17/25 09/14/25 History Physical Exam 2 Vital Signs and Narrative: Vital Signs: Last Vital Signs Temp 97.5 F 09/18/25 16:27 Pulse 85 09/18/25 16:27 Resp 18 09/18/25 16:27 BP 126/69 09/18/25 16:27 Pulse Ox 99 09/18/25 16:27 O2 Del Method Room Air 09/18/25 16:27 BMI result Body Mass Index 20.7 Alert and oriented X3, calm and cooperative. Answers questions. Neuro: CN II-X11 intact, no deficits, visual acuity intact EYES: PERRLA, EOM intact ENT: Hearing intact, MMM Cardiac: S1 S2 RRR, No ectopy Pulmonary: lungs clear to auscultation, No increased WOB. Abdominal: BS active in all 4 quadrants, no guarding or tenderness MSK: Strength 5/5 upper and lower extremities : Deferred Extremities: No edema in lower extremities Psych: Mood stable, ishaan at times Skin: Warm and dry, Intact Results Labs 09/19/25 07:17 09/19/25 07:17 Assessment and Plan (1) IBS (irritable bowel syndrome): Status: Acute Plan 75-year-old female who was admitted to the emergency room after taking 9 tablets of Ativan in suicide attempt, and also auditory hallucinations and violence towards her dog. She is admitted to [facility] for further treatment. MDD with psychotic features/LULÚ/SI/intentional overdose/panic disorder Treatment per inpatient psychiatric team History of colitis/history of C diff 05/2025/IBS/GERD Patient is followed by GI outpatient, she had a colonoscopy in April 2025 with recommendations to repeat in 5-7 years. Discussed case with GI, Resume budesonide 9 mgs daily and follow up with GI outpatient. Repeat stool for C diff to ensure patient does not have a current C diff infection Continue omeprazole HLD/HTN Continue Norvasc and carvedilol Lipid panel within acceptable range for age. Patient with history of embolic stroke with residual right facial droop Patient with history of TIAs No current neurological symptoms Adequate blood pressure control Patient has a history of vertigo as a result of the stroke-meclizine as needed. Mild systemic lupus erythematosus(cutaneous lupus, lymphopenia, + LYRIC) Supportive care Follow up with Rheumatology outpatient Asthma Albuterol as needed External record reviewed: Inpatient record, Office record, Outpatient record reviewed Thank you for allowing me to participate in the care of this patient. Will follow with you, please notify medical provider with any changes in condition or concerns.
[2025-09-18 20:00] VITALS: BP 123/84; PULSE 80; RESP 16; TEMP 36.8; O2SAT 96
[2025-09-18 20:42] VITALS: BP 123/84
[2025-09-18 20:43] VITALS: BP 123/84; PULSE 80
[2025-09-19 08:00] VITALS: BP 134/64; PULSE 77; RESP 18; TEMP 36.6; O2SAT 97
[2025-09-19 08:01] LABS: MANUAL DIFF FLAG NO
[2025-09-19 08:03] LABS: Hematocrit 36.1 % (37.0-47.0); Hemoglobin 12.3 g/dl (12.0-16.0); Imm Gran Abs Auto 0.01 X10*3/uL (0.00-0.03); Imm Gran Pct Auto 0.2 % (0.0-0.4); Lymphocytes Absolute Auto 1.2 X10*3/uL (1.2-4.9); Mean Corpuscular HGB Conc 34.1 g/dl (31.0-35.0); Mean Corpuscular Hemoglobin 31.1 pg (27.0-33.0); Mean Corpuscular Volume 91.4 fL (80.0-98.0); NRBC Abs Auto 0.000 X10*3/uL (0.0-0.012); NRBC Pct Auto 0.0 /100WBC (0.0-0.2); Platelet Count 245 X10*3/uL (160-400); Red Blood Count 3.95 X10*6/uL (4.20-5.50); White Blood Count 5.0 X10*3/uL (4.8-10.8)
[2025-09-19] MEDS: Potassium Chloride ER 20 MEQ TAB.ER.PRT PO (08:17)
[2025-09-19 08:22] LABS: Alanine Aminotransferase 6 U/L (0-31); Albumin Level 3.9 g/dL (3.5-5.0); Alkaline Phosphatase 63 U/L (39-117); Anion Gap 13 (12-20); Aspartate Amino Transferase 22 U/L (5-31); Blood Urea Nitrogen 19 mg/dL (9-16); Calcium 9.1 mg/dL (8.4-10.2); Carbon Dioxide 22 mmol/L (22-29); Chloride 108 mmol/L (96-108); Cholesterol 179 mg/dL (<200); Creatinine Clr Calc Pharmacy 44.0; Estimated Glomerular Filt Rate > 60; HDL Cholesterol 61 mg/dL (>40); Potassium 3.3 mmol/L (3.3-5.1); Sodium 140 mmol/L (135-145); Total Protein 6.4 g/dL (6.5-8.0); Triglycerides 154 mg/dL (<150)
--- NOTE | 2025-09-19 08:55 | HO.PSYADMNOT ---
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 The patient has been on Paxil 40 mg lorazepam 0.5 mg p.o. t.i.d. PRN BuSpar 10 mg p.o. b.i.d. and had recently been started on a small dose of Wellbutrin a half tablet of a 75 mg. Patient has been on Paxil for many years and we have been working on augmenting strategies has had failures on doxepin mirtazapine olanzapine. Patient has felt increasingly overwhelmed with multiple medical and other problems. She has had ongoing diarrhea and nausea vomiting with colitis as felt she has not been manage very well by her patient providers pills she has been canceled a number of times. She has had ongoing difficulty with balance and recently had developed a drop foot impairing her mobility in also had needed to renew her license was unable to do that at 1 point and has felt trapped in the house although she does have a car. She has had multiple hospitalizations over the past year medical reasons has had past stroke noted on head CT scan and also feels she is intermittently having TIAs. Patient has felt intermittently suicidal reportedly over the past month and then when her heating bill for the house broke down found out it had asbestos it felt like the last straw and she took 4.5 mg of lorazepam she states not in an attempt to kill herself but she could not take the emotional pain and ongoing continuous anxiety. We have in the past talked at times about assisted living. She is not currently connected with a therapist. Normally she is quite high functioning and self-sufficient and used to work as a [employer]. The patient did become scared when she had a transient thought about whether she should burn the house down she denied that this was an impulse a voice or plan but then became fearful what if she did something and called her [id number] and then was brought to hospital. She denies intrusive voices or commands that she has been experiencing Past Psychiatric History: Patient has chronic history of panic somatic preoccupations mild depressive episodes. Patient has generally been doing okay she lives with her niece in the same building to family house. Some chronic anxiety related to chronic allergy symptoms have been encouraged visit to sole inker or ENT which she has not pursued Librium has been cut in half over time history of panic attacks and anxiety generally stable with Paxil buspirone denies over medication does have some degree of chronic balance problems week and discussed possibility of physical therapy for strengthening and balance. 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 The mother is she has a brother with PTSD family history of depression She never no children Substance History: none Trauma History: NA medical trauma over the past year Diagnostics Vital Signs (24Hr): Vital Signs - 24 hr 09/18/25 14:36 09/18/25 16:27 09/18/25 20:00 Temperature 97.2 F 97.5 F 98.2 F Pulse Rate 61 85 80 Respiratory Rate 14 18 16 Blood Pressure 94/54 L 126/69 123/84 Pulse Oximetry 97 99 96 Oxygen Delivery Method Room Air Room Air Room Air 09/18/25 20:42 09/18/25 20:43 09/19/25 08:00 Temperature 97.9 F Pulse Rate 80 77 Respiratory Rate 18 Blood Pressure 123/84 123/84 134/64 Pulse Oximetry 97 Oxygen Delivery Method Room Air BMI result Body Mass Index 20.7 Labs 09/19/25 07:17 09/19/25 07:17 Labs: Laboratory Results - last 48 hr 09/19/25 07:17 WBC 5.0 RBC 3.95 L Hgb 12.3 Hct 36.1 L MCV 91.4 MCH 31.1 MCHC 34.1 RDW 12.8 Plt Count 245 MPV 9.0 L Immature Gran % (Auto) 0.2 Neut % (Auto) 64.8 Lymph % (Auto) 23.6 Luce % (Auto) 9.4 Eos % (Auto) 1.4 Baso % (Auto) 0.6 Lymph # (Auto) 1.2 Luce # (Auto) 0.5 Eos # (Auto) 0.1 Baso # (Auto) 0.0 Abs Immat Gran (auto) 0.01 Absolute Neuts (auto) 3.2 Absolute Nucleated RBC 0.000 Nucleated RBC % (auto) 0.0 Sodium 140 Potassium 3.3 D Chloride 108 Carbon Dioxide 22 Anion Gap 13 BUN 19 H Creatinine 0.78 Estim Creat Clear Calc 44.0 Estimated GFR > 60 Random Glucose 97 Estimat Average Glucose 108 Hemoglobin A1c % 5.4 Calcium 9.1 Total Bilirubin 0.2 AST 22 ALT 6 Alkaline Phosphatase 63 Total Protein 6.4 L Albumin 3.9 Triglycerides 154 H Cholesterol 179 LDL Cholesterol, Calc 88 HDL Cholesterol 61 Meds/Allergies Meds Home Medications ?Medication ?Instructions ?Recorded ?Confirmed ?Type omeprazole 40 mg capsule,delayed 40 mg PO DAILY@0630 05/15/25 09/16/25 History release potassium chloride 20 mEq 20 meq PO DAILY 05/15/25 09/16/25 History tablet,extended release(part/cryst) carvedilol 25 mg tablet 25 mg PO BID 05/17/25 09/16/25 History buspirone 15 mg tablet 10 mg PO BID 07/11/25 09/16/25 History bupropion HCl 100 mg tablet,12 hr 100 mg PO QAM 09/16/25 09/16/25 History sustained-release bupropion HCl 75 mg tablet 75 mg PO QAM 09/16/25 09/16/25 History lorazepam 0.5 mg tablet 0.5 mg PO TID PRN Anxiety 09/17/25 09/17/25 History Allergies Allergies Allergy/AdvReac Type Severity Reaction Status Date / Time Codeine Sulfate Allergy Severe Anaphylaxis Verified 09/16/25 08:14 diphenhydramine (From Allergy Intermediate sweats, Verified 09/16/25 08:14 Benadryl) palpitation egg Allergy Intermediate Heartburn Verified 09/16/25 08:14 Sulfa (Sulfonamide Allergy Intermediate RASH Verified 09/16/25 08:14 Antibiotics) (SULFA (SULFONAMIDE ANTIBIOTICS)) cefuroxime AdvReac Intermediate delerium Verified 09/16/25 08:14 ,paranoia Mental Status Exam Mental Status Exam Patient Appearance: Appropriate Patient Orientation: Person, Place, Time and Situation Level of Consciousness: Awake Patient Behavior: Appropriate Mood Description: Depressed and Anxious Affect Description: Constricted and Apprehensive Ability to Follow Directions: Good Speech Pattern: Clear Memory Description: Intact Hallucinations: None Delusions: Not Present Thought Process: Rumination and Linear Thought Content: positive for Preoccupation and negative for Suicidal Ideation Depressive Symptoms: Increased Anxiety, Difficulty Sleeping, Loss of Int. in Activity, Hopelessness, Isolating-Friends/Family, Thoughts of /Suicide and Loss of Energy Judgement: Fair (Patient denies plan or intent states at times she was suffering so much that she would mind if she was not here) Assessment & Plan Assessment & Plan (1) Panic disorder [episodic paroxysmal anxiety]: Status: Acute Code(s): F41.0 - Panic disorder [episodic paroxysmal anxiety] (2) Generalized anxiety disorder: Status: Acute Code(s): F41.1 - Generalized anxiety disorder (3) Depression, major, severe recurrence: Status: Acute Code(s): F33.2 - Major depressive disorder, recurrent severe without psychotic features Plan Patient presents with an ongoing severe agitated depression feeling nothing is going right in her life that she is suffering mentally and physically and feeling off well what to do with her house and now having to do major repairs on her heating system and feeling overwhelmed that she had the where with all to move into assisted living in all that would entail. She denies commands to harm herself she had an intrusive thought about burning the house which seem more like a fear than an impulse and there is a history of OCD handwashing and other intrusive fears that are times irrational. Patient denied that she was trying to take her life but clearly is suffering with multiple concerns financial and medical Plan admit on a conditional voluntary 5 minute checks PT consult Patient appears to suffer benign positional vertigo will benefit from assessment and treatment either inpatient if possible or outpatient Diarrhea nausea history of colitis relatively recently diagnosed not currently in treatment as for GI consult History of in infarcts question of TIAs has not seen neurology did have carotid Doppler studies in 2023 which were negative for significant pathology Start Seroquel for severe anxiety treatment resistant depression Consider low-dose Wellbutrin for augmentation versus TCA or Effexor Would also benefit from visiting nurse for safety Would benefit from referral for ongoing counseling initial referral was attempted a few months ago Would benefit from outpatient counseling consider PHP step-down Patient educated on: diagnosis, medication risk/benefits and medical condition Informed Consent: understands Reason for continued inpatient stay Substantial Risk for: harm to self, inability to function, rapid decompensation and med/psych decompensation Statement Statement: I have reviewed the history and physical and performed a pertinent examination on my patient. No changes have occurred unless specified. If the History and Physical was not performed prior to admission, the Hospitalist's service will be consulted for completing the admission physical. Reviewed 08 31 this morning Time Spent With Patient Time: Total time managing care of this patient today _60___ minutes.
[2025-09-19] MEDS: Flu Vacc TS2025-26(6mo up)/PF 0.5 ML SYRINGE IM (11:49)
[2025-09-19 20:00] VITALS: BP 117/55; PULSE 92; RESP 16; TEMP 36.4; O2SAT 94
[2025-09-20 07:55] VITALS: BP 108/58; PULSE 61; RESP 16; TEMP 36.4; O2SAT 98
[2025-09-20] MEDS: Budesonide DR 3 MG Capsule 9 MG PO (08:07)
[2025-09-20] MEDS: Potassium Chloride ER 20 MEQ TAB.ER.PRT PO (08:07)
--- NOTE | 2025-09-20 17:44 | P.PNPSI_ITS ---
Subjective Subjective Date of Service: 09/20/25 Reason For Visit: SI Depression Subjective Notes: Conditional Voluntary Healthcare Proxy: No Guardianship: No Interim History: Patient seen psychiatric follow-up. Patient has had increased anxiety and depressive symptoms. Has been out of her room social and engaged feels overwhelmed with anxiety. Sleep improved tolerated Seroquel lorazepam now scheduled 0.5 t.i.d. Medication Compliance: Yes Side effects from medications: Yes (Balance difficulties) Mental Status Exam Mental Status Exam Patient Appearance: Appropriate Patient Orientation: Person, Place, Time and Situation Level of Consciousness: Awake Patient Behavior: Appropriate Mood Description: Depressed and Anxious Affect Description: Constricted and Apprehensive Ability to Follow Directions: Good Speech Pattern: Clear Memory Description: Intact Hallucinations: None Delusions: Not Present Thought Process: Rumination and Linear Thought Content: positive for Preoccupation and negative for Suicidal Ideation Depressive Symptoms: Increased Anxiety, Difficulty Sleeping, Loss of Int. in Activity, Hopelessness, Isolating-Friends/Family, Thoughts of /Suicide and Loss of Energy Judgement: Fair (Patient denies plan or intent states at times she was suffering so much that she would mind if she was not here) Diagnostics Vital Signs (24Hr): Vital Signs - 24 hr 09/19/25 20:00 09/20/25 07:55 Temperature 97.6 F 97.5 F Pulse Rate 92 61 Respiratory Rate 16 16 Blood Pressure 117/55 L 108/58 L Pulse Oximetry 94 98 Oxygen Delivery Method Room Air Room Air BMI result Body Mass Index 20.7 Labs 09/19/25 07:17 09/19/25 07:17 Labs: Laboratory Results - last 48 hr 09/19/25 07:17 WBC 5.0 RBC 3.95 L Hgb 12.3 Hct 36.1 L MCV 91.4 MCH 31.1 MCHC 34.1 RDW 12.8 Plt Count 245 MPV 9.0 L Immature Gran % (Auto) 0.2 Neut % (Auto) 64.8 Lymph % (Auto) 23.6 Christian % (Auto) 9.4 Eos % (Auto) 1.4 Baso % (Auto) 0.6 Lymph # (Auto) 1.2 Christian # (Auto) 0.5 Eos # (Auto) 0.1 Baso # (Auto) 0.0 Abs Immat Gran (auto) 0.01 Absolute Neuts (auto) 3.2 Absolute Nucleated RBC 0.000 Nucleated RBC % (auto) 0.0 Sodium 140 Potassium 3.3 D Chloride 108 Carbon Dioxide 22 Anion Gap 13 BUN 19 H Creatinine 0.78 Estim Creat Clear Calc 44.0 Estimated GFR > 60 Random Glucose 97 Estimat Average Glucose 108 Hemoglobin A1c % 5.4 Calcium 9.1 Total Bilirubin 0.2 AST 22 ALT 6 Alkaline Phosphatase 63 Total Protein 6.4 L Albumin 3.9 Triglycerides 154 H Cholesterol 179 LDL Cholesterol, Calc 88 HDL Cholesterol 61 Medications Medications Current Medications Acetaminophen (Acetaminophen 325 Mg Tablet) 650 mg PO Q6H PRN PRN Reason: Headache/Pain, Scale 1-10 Al Hydroxide/Mg Hydroxide (Magnesium Hydrox/Alum Hydrox 30 Ml Oral.Susp) 30 ml PO Q6H PRN PRN Reason: Heartburn/Nausea Albuterol Sulfate (Albuterol Sulfate 90 Mcg 8 Gm Inhaler) 2 puff INHALE RQ6H PRN PRN Reason: Shortness of breath or wheeze Amlodipine Besylate (Amlodipine Besylate 5 Mg Tablet) 5 mg PO BEDTIME ON LICENSE OF [facility]; Protocol Last Admin: 09/19/25 21:10 Dose: 5 mg Budesonide (Budesonide Dr 3 Mg Capsule) 9 mg PO DAILY ON LICENSE OF [facility] Last Admin: 09/20/25 08:07 Dose: 9 mg Buspirone HCl (Buspirone Hcl 5 Mg Tablet) 15 mg PO BID ON LICENSE OF [facility] Carvedilol (Carvedilol 25 Mg Tablet) 25 mg PO BID ON LICENSE OF [facility]; Protocol Last Admin: 09/20/25 08:10 Dose: 25 mg Hydroxyzine HCl (Hydroxyzine Hcl 10 Mg Tablet) 10 mg PO BEDTIME PRN PRN Reason: Insomnia Last Admin: 09/19/25 21:10 Dose: 10 mg Loperamide HCl (Loperamide Hcl 2 Mg Capsule) 2 mg PO Q4H PRN PRN Reason: Diarrhea Lorazepam (Lorazepam 0.5 Mg Tablet) 0.5 mg PO TID ON LICENSE OF [facility] Stop: 09/23/25 10:33 Last Admin: 09/20/25 14:46 Dose: 0.5 mg Magnesium Hydroxide (Milk Of Magnesia 30 Ml Oral.Susp) 30 ml PO DAILY PRN PRN Reason: Constipation Meclizine HCl (Meclizine Hcl 12.5 Mg Tablet) 12.5 mg PO Q6H PRN PRN Reason: Dizziness Omeprazole (Omeprazole 40 Mg Capsule.Dr) 40 mg PO DAILY@0630 ON LICENSE OF [facility] Last Admin: 09/20/25 05:07 Dose: 40 mg Ondansetron HCl (Ondansetron Odt 4 Mg Tab.Rapdis) 4 mg TRANSLINGU Q6H PRN PRN Reason: Nausea and Vomiting Potassium Chloride (Potassium Chloride Er 20 Meq Tab.Er.Prt) 20 meq PO DAILY ON LICENSE OF [facility] Last Admin: 09/20/25 08:07 Dose: 20 meq Quetiapine Fumarate (Quetiapine Fumarate 25 Mg Tablet) 12.5 mg PO DAILY ON LICENSE OF [facility] Last Admin: 09/20/25 08:07 Dose: 12.5 mg Quetiapine Fumarate (Quetiapine Fumarate 25 Mg Tablet) 12.5 mg PO Q4H PRN PRN Reason: anxiety/agitation Quetiapine Fumarate (Quetiapine Fumarate 25 Mg Tablet) 37.5 mg PO BEDTIME ON LICENSE OF [facility] Allergies Allergies Allergy/AdvReac Type Severity Reaction Status Date / Time Codeine Sulfate Allergy Severe Anaphylaxis Verified 09/16/25 08:14 diphenhydramine (From Allergy Intermediate sweats, Verified 09/16/25 08:14 Benadryl) palpitation egg Allergy Intermediate Heartburn Verified 09/16/25 08:14 Sulfa (Sulfonamide Allergy Intermediate RASH Verified 09/16/25 08:14 Antibiotics) (SULFA (SULFONAMIDE ANTIBIOTICS)) cefuroxime AdvReac Intermediate delerium Verified 09/16/25 08:14 ,paranoia Assessment & Plan Assessment & Plan (1) Depression, major, severe recurrence: Status: Acute Code(s): F33.2 - Major depressive disorder, recurrent severe without psychotic features (2) Panic disorder [episodic paroxysmal anxiety]: Status: Acute Code(s): F41.0 - Panic disorder [episodic paroxysmal anxiety] (3) Generalized anxiety disorder: Status: Acute Code(s): F41.1 - Generalized anxiety disorder Plan Patient presents with an ongoing severe agitated depression feeling nothing is going right in her life that she is suffering mentally and physically and feeling off well what to do with her house and now having to do major repairs on her heating system and feeling overwhelmed that she had the where with all to move into assisted living in all that would entail. She denies commands to harm herself she had an intrusive thought about burning the house which seem more like a fear than an impulse and there is a history of OCD handwashing and other intrusive fears that are times irrational. Patient denied that she was trying to take her life but clearly is suffering with multiple concerns financial and medical Plan admit on a conditional voluntary 5 minute checks PT consult Patient appears to suffer benign positional vertigo will benefit from assessment and treatment either inpatient if possible or outpatient Diarrhea nausea history of colitis relatively recently diagnosed not currently in treatment as for GI consult History of in infarcts question of TIAs has not seen neurology did have carotid Doppler studies in 2023 which were negative for significant pathology Start Seroquel for severe anxiety treatment resistant depression Consider low-dose Wellbutrin for augmentation versus TCA or Effexor Would also benefit from visiting nurse for safety Would benefit from referral for ongoing counseling initial referral was attempted a few months ago Would benefit from outpatient counseling consider PHP step-down 09/20/2025 Increase Seroquel schedule PRN q.4h increase HS dose 37.5 mg bedtime continue Paxil education regarding management of anxiety symptoms challenging irrational thoughts monitor safety Patient educated on: diagnosis, medication risk/benefits, therapeutic strategies and medical condition Reason for continued inpatient stay Substantial Risk for: harm to self and rapid decompensation Time Spent With Patient Time: Total time managing care of this patient today _35___ minutes.
[2025-09-20 20:00] VITALS: BP 133/63; PULSE 98; RESP 18; TEMP 36.7; O2SAT 98
[2025-09-21 08:00] VITALS: BP 142/65; PULSE 82; RESP 18; TEMP 36.7; O2SAT 98
[2025-09-21] MEDS: Budesonide DR 3 MG Capsule 9 MG PO (08:33)
[2025-09-21] MEDS: Potassium Chloride ER 20 MEQ TAB.ER.PRT PO (08:33)
[2025-09-21 08:48] LABS: Folate 7.0 ng/mL (> or = 4.0); Vitamin B12 < 148 pg/mL (200-900)
[2025-09-21 12:41] VITALS: BMI 22.3
[2025-09-21 20:00] VITALS: BP 123/60; PULSE 74; RESP 18; TEMP 36.6; O2SAT 97
[2025-09-21 20:54] VITALS: BP 123/60; PULSE 74
[2025-09-21 20:56] VITALS: BP 123/59
--- NOTE | 2025-09-21 21:36 | HO.PSYCHPN ---
Subjective Subjective Date of Service: 09/21/25 Reason For Visit: SI Depression Subjective Notes: Conditional Voluntary Healthcare Proxy: No Interim History: Patient seen psychiatric follow-up case reviewed in treatment planning chart reviewed patient seen. Patient had difficulty with nausea and vomiting last night she did eventually sleep continues to complain of abdominal discomfort not being treated for colitis at the moment gastroenterology consult has been still pending. Patient tolerated Seroquel perhaps some decrease anxiety Mental Status Exam Mental Status Exam Patient Appearance: Appropriate Patient Orientation: Person, Place, Time and Situation Level of Consciousness: Awake Patient Behavior: Appropriate Mood Description: Depressed and Anxious Affect Description: Constricted and Apprehensive Ability to Follow Directions: Good Speech Pattern: Clear Memory Description: Intact Hallucinations: None Delusions: Not Present Thought Process: Rumination and Linear Thought Content: positive for Preoccupation and negative for Suicidal Ideation Depressive Symptoms: Increased Anxiety, Difficulty Sleeping, Loss of Int. in Activity, Hopelessness, Isolating-Friends/Family, Thoughts of /Suicide and Loss of Energy Judgement: Fair (Patient denies plan or intent states at times she was suffering so much that she would mind if she was not here) Diagnostics Vital Signs (24Hr): Vital Signs - 24 hr 09/21/25 08:00 09/21/25 20:54 09/21/25 20:56 Temperature 98.0 F Pulse Rate 82 74 Respiratory Rate 18 Blood Pressure 142/65 H 123/60 123/59 L Pulse Oximetry 98 Oxygen Delivery Method Room Air BMI result Body Mass Index 22.3 Labs 09/19/25 07:17 09/19/25 07:17 Labs: Laboratory Results - last 48 hr 09/21/25 07:29 Vitamin B12 < 148 L Folate 7.0 TSH 1.31 Medications Medications Current Medications Acetaminophen (Acetaminophen 325 Mg Tablet) 650 mg PO Q6H PRN PRN Reason: Headache/Pain, Scale 1-10 Al Hydroxide/Mg Hydroxide (Magnesium Hydrox/Alum Hydrox 30 Ml Oral.Susp) 30 ml PO Q6H PRN PRN Reason: Heartburn/Nausea Albuterol Sulfate (Albuterol Sulfate 90 Mcg 8 Gm Inhaler) 2 puff INHALE RQ6H PRN PRN Reason: Shortness of breath or wheeze Amlodipine Besylate (Amlodipine Besylate 5 Mg Tablet) 5 mg PO BEDTIME [facility]; Protocol Last Admin: 09/21/25 20:56 Dose: 5 mg Budesonide (Budesonide Dr 3 Mg Capsule) 9 mg PO DAILY [facility] Last Admin: 09/21/25 08:33 Dose: 9 mg Buspirone HCl (Buspirone Hcl 5 Mg Tablet) 15 mg PO BID [facility] Last Admin: 09/21/25 20:53 Dose: 15 mg Carvedilol (Carvedilol 25 Mg Tablet) 25 mg PO BID [facility]; Protocol Last Admin: 09/21/25 20:54 Dose: 25 mg Hydroxyzine HCl (Hydroxyzine Hcl 10 Mg Tablet) 10 mg PO BEDTIME PRN PRN Reason: Insomnia Last Admin: 09/19/25 21:10 Dose: 10 mg Loperamide HCl (Loperamide Hcl 2 Mg Capsule) 2 mg PO Q4H PRN PRN Reason: Diarrhea Lorazepam (Lorazepam 0.5 Mg Tablet) 0.5 mg PO TID [facility] Stop: 09/23/25 10:33 Last Admin: 09/21/25 20:54 Dose: 0.5 mg Magnesium Hydroxide (Milk Of Magnesia 30 Ml Oral.Susp) 30 ml PO DAILY PRN PRN Reason: Constipation Meclizine HCl (Meclizine Hcl 12.5 Mg Tablet) 12.5 mg PO Q6H PRN PRN Reason: Dizziness Omeprazole (Omeprazole 40 Mg Capsule.Dr) 40 mg PO DAILY@0630 [facility] Last Admin: 09/21/25 06:23 Dose: 40 mg Ondansetron HCl (Ondansetron Odt 4 Mg Tab.Rapdis) 4 mg TRANSLINGU Q6H PRN PRN Reason: Nausea and Vomiting Last Admin: 09/20/25 21:22 Dose: 4 mg Potassium Chloride (Potassium Chloride Er 20 Meq Tab.Er.Prt) 20 meq PO DAILY [facility] Last Admin: 09/21/25 08:33 Dose: 20 meq Quetiapine Fumarate (Quetiapine Fumarate 25 Mg Tablet) 12.5 mg PO DAILY [facility] Last Admin: 09/21/25 08:34 Dose: 12.5 mg Quetiapine Fumarate (Quetiapine Fumarate 25 Mg Tablet) 12.5 mg PO Q4H PRN PRN Reason: anxiety/agitation Quetiapine Fumarate (Quetiapine Fumarate 25 Mg Tablet) 37.5 mg PO BEDTIME [facility] Last Admin: 09/21/25 20:58 Dose: 37.5 mg Allergies Allergies Allergy/AdvReac Type Severity Reaction Status Date / Time Codeine Sulfate Allergy Severe Anaphylaxis Verified 09/16/25 08:14 diphenhydramine (From Allergy Intermediate sweats, Verified 09/16/25 08:14 Benadryl) palpitation egg Allergy Intermediate Heartburn Verified 09/16/25 08:14 Sulfa (Sulfonamide Allergy Intermediate RASH Verified 09/16/25 08:14 Antibiotics) (SULFA (SULFONAMIDE ANTIBIOTICS)) cefuroxime AdvReac Intermediate delerium Verified 09/16/25 08:14 ,paranoia Assessment & Plan Assessment & Plan (1) Depression, major, severe recurrence: Status: Acute Code(s): F33.2 - Major depressive disorder, recurrent severe without psychotic features (2) Panic disorder [episodic paroxysmal anxiety]: Status: Acute Code(s): F41.0 - Panic disorder [episodic paroxysmal anxiety] (3) Generalized anxiety disorder: Status: Acute Code(s): F41.1 - Generalized anxiety disorder Plan Patient presents with an ongoing severe agitated depression feeling nothing is going right in her life that she is suffering mentally and physically and feeling off well what to do with her house and now having to do major repairs on her heating system and feeling overwhelmed that she had the where with all to move into assisted living in all that would entail. She denies commands to harm herself she had an intrusive thought about burning the house which seem more like a fear than an impulse and there is a history of OCD handwashing and other intrusive fears that are times irrational. 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 Was ever taken some information about CBT and education regarding OCD increase Seroquel as tolerated. Educated regarding intrusive self-harm images appear more as OCD symptoms certainly impulsive Patient educated on: diagnosis, medication risk/benefits and therapeutic strategies Informed Consent: understands Reason for continued inpatient stay Substantial Risk for: harm to self, inability to function and rapid decompensation Time Spent With Patient Time: Total time managing care of this patient today ____ minutes.
[2025-09-22 08:14] VITALS: BP 122/57; PULSE 77; RESP 18; TEMP 36.8; O2SAT 97
[2025-09-22] MEDS: Potassium Chloride ER 20 MEQ TAB.ER.PRT PO (09:13)
[2025-09-22 09:16] VITALS: BP 122/57; PULSE 77
[2025-09-22] MEDS: Budesonide DR 3 MG Capsule 9 MG PO (09:16)
[2025-09-22 09:44] LABS: Appearance Urine Clear; Glucose Urine UA Negative (Negative); PH 7.0 (5.0-9.0); Specific Gravity - Urine 1.015 (1.005-1.025)
[2025-09-22 20:00] VITALS: BP 118/56; PULSE 68; RESP 16; TEMP 36.2; O2SAT 96
[2025-09-22 20:46] VITALS: BP 118/56; PULSE 68
[2025-09-23 08:15] VITALS: BP 135/61; PULSE 65; RESP 18; TEMP 36.7; O2SAT 98
[2025-09-23] MEDS: Budesonide DR 3 MG Capsule 9 MG PO (08:58)
[2025-09-23] MEDS: Potassium Chloride ER 20 MEQ TAB.ER.PRT PO (08:59)
--- NOTE | 2025-09-23 18:06 | P.PNPSI_ITS ---
Subjective Subjective Date of Service: 09/23/25 Reason For Visit: SI Depression Interim History: Met with patient; discussed with team Patient reports she is doing well; says she slept well; appropriate with peers and social in the milieu Mental Status Exam Mental Status Exam Patient Appearance: Appropriate Patient Orientation: Person, Place, Time and Situation Level of Consciousness: Awake Patient Behavior: Appropriate Mood Description: Calm Affect Description: Constricted Ability to Follow Directions: Good Speech Pattern: Clear Memory Description: Intact Hallucinations: None Delusions: Not Present Thought Process: Rumination and Linear Thought Content: positive for Goal Oriented and negative for Suicidal Ideation Judgement: Poor (Patient denies plan or intent states at times she was suffering so much that she would mind if she was not here) Diagnostics Vital Signs (24Hr): Vital Signs - 24 hr 09/22/25 20:00 09/22/25 20:46 09/22/25 20:46 Temperature 97.1 F Pulse Rate 68 68 Respiratory Rate 16 Blood Pressure 118/56 L 118/56 L 118/56 L Pulse Oximetry 96 Oxygen Delivery Method Room Air 09/23/25 08:15 Temperature 98.1 F Pulse Rate 65 Respiratory Rate 18 Blood Pressure 135/61 Pulse Oximetry 98 Oxygen Delivery Method Room Air BMI result Body Mass Index 22.3 Labs 09/19/25 07:17 10/02/25 13:39 Labs: Laboratory Results - last 48 hr 09/22/25 09:30 Urine Color Yellow Urine Appearance Clear Urine pH 7.0 Ur Specific [place] 1.015 Urine Protein Negative Urine Glucose (UA) Negative Urine Ketones Negative Urine Blood Negative Urine Nitrite Negative Ur Leukocyte Esterase Negative Medications Medications Current Medications Acetaminophen (Acetaminophen 325 Mg Tablet) 650 mg PO Q6H PRN PRN Reason: Headache/Pain, Scale 1-10 Al Hydroxide/Mg Hydroxide (Magnesium Hydrox/Alum Hydrox 30 Ml Oral.Susp) 30 ml PO Q6H PRN PRN Reason: Heartburn/Nausea Albuterol Sulfate (Albuterol Sulfate 90 Mcg 8 Gm Inhaler) 2 puff INHALE RQ6H PRN PRN Reason: Shortness of breath or wheeze Amlodipine Besylate (Amlodipine Besylate 5 Mg Tablet) 5 mg PO BEDTIME [facility]; Protocol Last Admin: 09/22/25 20:46 Dose: 5 mg Budesonide (Budesonide Dr 3 Mg Capsule) 9 mg PO DAILY [facility] Last Admin: 09/23/25 08:58 Dose: 9 mg Buspirone HCl (Buspirone Hcl 5 Mg Tablet) 15 mg PO BID [facility] Last Admin: 09/23/25 08:58 Dose: 15 mg Carvedilol (Carvedilol 25 Mg Tablet) 25 mg PO BID [facility]; Protocol Last Admin: 09/23/25 08:59 Dose: 25 mg Hydroxyzine HCl (Hydroxyzine Hcl 10 Mg Tablet) 10 mg PO BEDTIME PRN PRN Reason: Insomnia Last Admin: 09/19/25 21:10 Dose: 10 mg Loperamide HCl (Loperamide Hcl 2 Mg Capsule) 2 mg PO Q4H PRN PRN Reason: Diarrhea Lorazepam (Lorazepam 0.5 Mg Tablet) 0.5 mg PO TID PRN PRN Reason: moderate anxiety Magnesium Hydroxide (Milk Of Magnesia 30 Ml Oral.Susp) 30 ml PO DAILY PRN PRN Reason: Constipation Meclizine HCl (Meclizine Hcl 12.5 Mg Tablet) 12.5 mg PO Q6H PRN PRN Reason: Dizziness Omeprazole (Omeprazole 40 Mg Capsule.Dr) 40 mg PO DAILY@0630 [facility] Last Admin: 09/23/25 05:59 Dose: 40 mg Ondansetron HCl (Ondansetron Odt 4 Mg Tab.Rapdis) 4 mg TRANSLINGU Q6H PRN PRN Reason: Nausea and Vomiting Last Admin: 09/20/25 21:22 Dose: 4 mg Potassium Chloride (Potassium Chloride Er 20 Meq Tab.Er.Prt) 20 meq PO DAILY [facility] Last Admin: 09/23/25 08:59 Dose: 20 meq Quetiapine Fumarate (Quetiapine Fumarate 25 Mg Tablet) 12.5 mg PO DAILY [facility] Last Admin: 09/23/25 08:57 Dose: 12.5 mg Quetiapine Fumarate (Quetiapine Fumarate 25 Mg Tablet) 12.5 mg PO Q4H PRN PRN Reason: anxiety/agitation Quetiapine Fumarate (Quetiapine Fumarate 50 Mg Tablet) 50 mg PO BEDTIME [facility] Last Admin: 09/22/25 20:47 Dose: 50 mg Allergies Allergies Allergy/AdvReac Type Severity Reaction Status Date / Time Codeine Sulfate Allergy Severe Anaphylaxis Verified 09/16/25 08:14 diphenhydramine (From Allergy Intermediate sweats, Verified 09/16/25 08:14 Benadryl) palpitation egg Allergy Intermediate Heartburn Verified 09/16/25 08:14 Sulfa (Sulfonamide Allergy Intermediate RASH Verified 09/16/25 08:14 Antibiotics) (SULFA (SULFONAMIDE ANTIBIOTICS)) cefuroxime AdvReac Intermediate delerium Verified 09/16/25 08:14 ,paranoia Assessment & Plan Assessment & Plan (1) Depression, major, severe recurrence: Status: Acute Code(s): F33.2 - Major depressive disorder, recurrent severe without psychotic features (2) Panic disorder [episodic paroxysmal anxiety]: Status: Acute Code(s): F41.0 - Panic disorder [episodic paroxysmal anxiety] (3) Generalized anxiety disorder: Status: Acute Code(s): F41.1 - Generalized anxiety disorder Plan Patient presents with an ongoing severe agitated depression feeling nothing is going right in her life that she is suffering mentally and physically and feeling off well what to do with her house and now having to do major repairs on her heating system and feeling overwhelmed that she had the where with all to move into assisted living in all that would entail. She denies commands to harm herself she had an intrusive thought about burning the house which seem more like a fear than an impulse and there is a history of OCD handwashing and other intrusive fears that are times irrational. 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 Was ever taken some information about CBT and education regarding OCD increase Seroquel as tolerated. Educated regarding intrusive self-harm images appear more as OCD symptoms certainly impulsive Patient educated on: diagnosis Informed Consent: further education needed Reason for continued inpatient stay Substantial Risk for: rapid decompensation Time Spent With Patient Time: Total time managing care of this patient today ____ minutes.
[2025-09-23 20:00] VITALS: BP 116/73; PULSE 71; RESP 16; TEMP 2.6; TEMP 36.6; O2SAT 96
[2025-09-23 20:31] VITALS: BP 116/73; PULSE 71
[2025-09-24 07:54] VITALS: BP 124/71; PULSE 63; RESP 16; TEMP 36.4; O2SAT 99
[2025-09-24] MEDS: Potassium Chloride ER 20 MEQ TAB.ER.PRT PO (08:20)
[2025-09-24] MEDS: Budesonide DR 3 MG Capsule 9 MG PO (08:21)
[2025-09-24 20:08] VITALS: BP 132/75; PULSE 84; RESP 15; TEMP 36.6; O2SAT 97
[2025-09-24 20:10] VITALS: BP 132/75; PULSE 84
[2025-09-24 20:11] VITALS: BP 132/75
[2025-09-24] MEDS: Magnesium Hydrox/Alum Hydrox 30 ML ORAL.SUSP PO (20:11)
[2025-09-25 08:00] VITALS: BP 129/73; PULSE 71; RESP 16; TEMP 36.8; O2SAT 98
[2025-09-25] MEDS: Budesonide DR 3 MG Capsule 9 MG PO (08:46)
[2025-09-25] MEDS: Potassium Chloride ER 20 MEQ TAB.ER.PRT PO (08:47)
--- NOTE | 2025-09-25 09:42 | P.PNPSI_ITS ---
Subjective Subjective Date of Service: 09/24/25 Reason For Visit: SI Depression Interim History: late entry note for patient seen on 09/24/25 Patient says she is good and sitting at table with a peer doing a puzzle. Discussed Ativan and she asked for it to be scheduled and rewriter agreed. Mental Status Exam Mental Status Exam Patient Appearance: Appropriate Patient Orientation: Person, Place, Time and Situation Level of Consciousness: Awake Patient Behavior: Appropriate Mood Description: Calm ( good ) Affect Description: Constricted Ability to Follow Directions: Good Speech Pattern: Clear Memory Description: Intact Hallucinations: None Delusions: Not Present Thought Process: Rumination and Linear Thought Content: positive for Goal Oriented and negative for Suicidal Ideation Judgement: Poor (Patient denies plan or intent states at times she was suffering so much that she would mind if she was not here) Diagnostics Vital Signs (24Hr): Vital Signs - 24 hr 09/24/25 20:08 09/24/25 20:10 09/24/25 20:11 Temperature 97.9 F Pulse Rate 84 84 Respiratory Rate 15 Blood Pressure 132/75 132/75 132/75 Pulse Oximetry 97 Oxygen Delivery Method Room Air 09/25/25 08:00 Temperature 98.2 F Pulse Rate 71 Respiratory Rate 16 Blood Pressure 129/73 Pulse Oximetry 98 Oxygen Delivery Method Room Air BMI result Body Mass Index 22.3 Labs 09/19/25 07:17 10/02/25 13:39 Medications Medications Current Medications Acetaminophen (Acetaminophen 325 Mg Tablet) 650 mg PO Q6H PRN PRN Reason: Headache/Pain, Scale 1-10 Al Hydroxide/Mg Hydroxide (Magnesium Hydrox/Alum Hydrox 30 Ml Oral.Susp) 30 ml PO Q6H PRN PRN Reason: Heartburn/Nausea Last Admin: 09/24/25 20:11 Dose: 30 ml Albuterol Sulfate (Albuterol Sulfate 90 Mcg 8 Gm Inhaler) 2 puff INHALE RQ6H PRN PRN Reason: Shortness of breath or wheeze Amlodipine Besylate (Amlodipine Besylate 5 Mg Tablet) 5 mg PO BEDTIME [facility]; Protocol Last Admin: 09/24/25 20:11 Dose: 5 mg Budesonide (Budesonide Dr 3 Mg Capsule) 9 mg PO DAILY [facility] Last Admin: 09/25/25 08:46 Dose: 9 mg Buspirone HCl (Buspirone Hcl 5 Mg Tablet) 15 mg PO BID [facility] Last Admin: 09/25/25 08:45 Dose: 15 mg Carvedilol (Carvedilol 25 Mg Tablet) 25 mg PO BID [facility]; Protocol Last Admin: 09/25/25 08:50 Dose: 25 mg Hydroxyzine HCl (Hydroxyzine Hcl 10 Mg Tablet) 10 mg PO BEDTIME PRN PRN Reason: Insomnia Last Admin: 09/24/25 02:01 Dose: 10 mg Loperamide HCl (Loperamide Hcl 2 Mg Capsule) 2 mg PO Q4H PRN PRN Reason: Diarrhea Lorazepam (Lorazepam 0.5 Mg Tablet) 0.5 mg PO TID PRN PRN Reason: moderate anxiety Last Admin: 09/25/25 08:47 Dose: 0.5 mg Magnesium Hydroxide (Milk Of Magnesia 30 Ml Oral.Susp) 30 ml PO DAILY PRN PRN Reason: Constipation Meclizine HCl (Meclizine Hcl 12.5 Mg Tablet) 12.5 mg PO Q6H PRN PRN Reason: Dizziness Omeprazole (Omeprazole 40 Mg Capsule.Dr) 40 mg PO DAILY@0630 [facility] Last Admin: 09/25/25 05:49 Dose: 40 mg Ondansetron HCl (Ondansetron Odt 4 Mg Tab.Rapdis) 4 mg TRANSLINGU Q6H PRN PRN Reason: Nausea and Vomiting Last Admin: 09/20/25 21:22 Dose: 4 mg Potassium Chloride (Potassium Chloride Er 20 Meq Tab.Er.Prt) 20 meq PO DAILY [facility] Last Admin: 09/25/25 08:47 Dose: 20 meq Quetiapine Fumarate (Quetiapine Fumarate 25 Mg Tablet) 12.5 mg PO DAILY [facility] Last Admin: 09/25/25 08:45 Dose: 12.5 mg Quetiapine Fumarate (Quetiapine Fumarate 25 Mg Tablet) 12.5 mg PO Q4H PRN PRN Reason: anxiety/agitation Quetiapine Fumarate (Quetiapine Fumarate 50 Mg Tablet) 50 mg PO BEDTIME [facility] Last Admin: 09/24/25 20:10 Dose: 50 mg Allergies Allergies Allergy/AdvReac Type Severity Reaction Status Date / Time Codeine Sulfate Allergy Severe Anaphylaxis Verified 09/16/25 08:14 diphenhydramine (From Allergy Intermediate sweats, Verified 09/16/25 08:14 Benadryl) palpitation egg Allergy Intermediate Heartburn Verified 09/16/25 08:14 Sulfa (Sulfonamide Allergy Intermediate RASH Verified 09/16/25 08:14 Antibiotics) (SULFA (SULFONAMIDE ANTIBIOTICS)) cefuroxime AdvReac Intermediate delerium Verified 09/16/25 08:14 ,paranoia Assessment & Plan Assessment & Plan (1) Depression, major, severe recurrence: Status: Acute Code(s): F33.2 - Major depressive disorder, recurrent severe without psychotic features (2) Panic disorder [episodic paroxysmal anxiety]: Status: Acute Code(s): F41.0 - Panic disorder [episodic paroxysmal anxiety] (3) Generalized anxiety disorder: Status: Acute Code(s): F41.1 - Generalized anxiety disorder Plan Patient presents with an ongoing severe agitated depression feeling nothing is going right in her life that she is suffering mentally and physically and feeling off well what to do with her house and now having to do major repairs on her heating system and feeling overwhelmed that she had the where with all to move into assisted living in all that would entail. She denies commands to harm herself she had an intrusive thought about burning the house which seem more like a fear than an impulse and there is a history of OCD handwashing and other intrusive fears that are times irrational. 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 Was ever taken some information about CBT and education regarding OCD increase Seroquel as tolerated. Educated regarding intrusive self-harm images appear more as OCD symptoms certainly impulsive Patient educated on: diagnosis and medication risk/benefits Informed Consent: understands Reason for continued inpatient stay Substantial Risk for: rapid decompensation Time Spent With Patient Time: Total time managing care of this patient today ____ minutes.
--- NOTE | 2025-09-25 14:59 | PC.NURSE ---
Consult called in to GI office on 09/25/25 at [id number].
--- NOTE | 2025-09-25 16:22 | PM.GICN ---
History of Present Illness Data of Consult Service Date: 09/25/25 Requesting physician: Thierry Moraes Primary Care Provider: Arnulfo Villalba MD [facility] Reason for consult: Colitis 75-year-old female well known to me for lymphocytic colitis, with other pertinent medical history including paraesophageal hernia status post repair 09/2024, hypertension, GERD, rheumatoid arthritis, history of CVA, diverticulitis, who is currently admitted to the hospital for depression and SI. Gastroenterology has been consulted for colitis flare-up. History was obtained from the patient, who states that she actually does not have any diarrhea or abdominal pain. Her main complaint is severe constipation with difficulty passing bowel movement. When she does have bowel movement it is hard with small pellets. No blood noted by patient. This is associated with cramping that relieves when she has a bowel movement. Patient was started on budesonide for her lymphocytic colitis, but as reported above, does not report any diarrhea at this time. 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 Mother Hypertension Asthma COPD (chronic obstructive pulmonary disease) Breast cancer, Onset Age: 89 Surgical History Surgical History History of open reduction and internal fixation (ORIF) procedure S/P repair of paraesophageal hernia Hx of colonoscopy History of cholecystectomy Social History Social History Household Members: None Household Members Other:: [facility] Housing: House Are you a primary care coordinator to a significant other at home: No Do you presently have visiting nurse or other home services: Yes (meals, homemaker and home health aide) Alcohol intake: former Patient Tobacco Use Status: Former Tobacco user Tobacco use type: Cigarette Years Smoked: quit greater than 10 years ago Smoked in Last 30 Days: No e-Cigarette/Vaping Use: Former Use Patient Interested in Nicotine Replacement: No Patient Given Instructions on How to Stop Smoking: No Second Hand Smoke Exposure: No Use of substances other than those prescribed or required for medical reasons: No Currently Displaying Signs/Symptoms of Drug Intoxication Withdrawal: No Have you been hit, kicked, punched, or otherwise hurt by someone within the past year? If so, by whom?: No Do you feel safe in your current relationship?: No Current Relationship Is there a partner from a previous relationship who is making you feel unsafe now?: No Are you made to feel afraid or neglected: No [facility] Practices: Christianity Advance Directives: Yes Advance Directives Information Provided: No Advance Directives on File: Yes Advance Directives Date on File: 04/07/23 Do you have thoughts of harming others: None Do you have a plan to hurt others: No Plan Recently lost weight without trying: Yes How much weight loss: 2-13 pounds Eating poorly because of decreased appetite: Yes Nutrition screen score: 4 Nutrition Risks: Acute nausea or vomiting x1 week Patient : No : No Poor oral hygiene: No service: No Current occupational status: retired 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, 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 Meds Allergies Allergy/AdvReac Type Severity Reaction Status Date / Time Codeine Sulfate Allergy Severe Anaphylaxis Verified 09/16/25 08:14 diphenhydramine (From Allergy Intermediate sweats, Verified 09/16/25 08:14 Benadryl) palpitation egg Allergy Intermediate Heartburn Verified 09/16/25 08:14 Sulfa (Sulfonamide Allergy Intermediate RASH Verified 09/16/25 08:14 Antibiotics) (SULFA (SULFONAMIDE ANTIBIOTICS)) cefuroxime AdvReac Intermediate delerium Verified 09/16/25 08:14 ,paranoia Active Medications: Current Medications Acetaminophen (Acetaminophen 325 Mg Tablet) 650 mg PO Q6H PRN PRN Reason: Headache/Pain, Scale 1-10 Al Hydroxide/Mg Hydroxide (Magnesium Hydrox/Alum Hydrox 30 Ml Oral.Susp) 30 ml PO Q6H PRN PRN Reason: Heartburn/Nausea Last Admin: 09/24/25 20:11 Dose: 30 ml Albuterol Sulfate (Albuterol Sulfate 90 Mcg 8 Gm Inhaler) 2 puff INHALE RQ6H PRN PRN Reason: Shortness of breath or wheeze Amlodipine Besylate (Amlodipine Besylate 5 Mg Tablet) 5 mg PO BEDTIME [facility]; Protocol Last Admin: 09/24/25 20:11 Dose: 5 mg Budesonide (Budesonide Dr 3 Mg Capsule) 9 mg PO DAILY [facility] Last Admin: 09/25/25 08:46 Dose: 9 mg Buspirone HCl (Buspirone Hcl 5 Mg Tablet) 15 mg PO BID [facility] Last Admin: 09/25/25 08:45 Dose: 15 mg Carvedilol (Carvedilol 25 Mg Tablet) 25 mg PO BID [facility]; Protocol Last Admin: 09/25/25 08:50 Dose: 25 mg Hydroxyzine HCl (Hydroxyzine Hcl 10 Mg Tablet) 10 mg PO BEDTIME PRN PRN Reason: Insomnia Last Admin: 09/24/25 02:01 Dose: 10 mg Loperamide HCl (Loperamide Hcl 2 Mg Capsule) 2 mg PO Q4H PRN PRN Reason: Diarrhea Lorazepam (Lorazepam 0.5 Mg Tablet) 0.5 mg PO TID [facility] Last Admin: 09/25/25 15:00 Dose: 0.5 mg Magnesium Hydroxide (Milk Of Magnesia 30 Ml Oral.Susp) 30 ml PO DAILY PRN PRN Reason: Constipation Meclizine HCl (Meclizine Hcl 12.5 Mg Tablet) 12.5 mg PO Q6H PRN PRN Reason: Dizziness Omeprazole (Omeprazole 40 Mg Capsule.Dr) 40 mg PO DAILY@0630 [facility] Last Admin: 09/25/25 05:49 Dose: 40 mg Ondansetron HCl (Ondansetron Odt 4 Mg Tab.Rapdis) 4 mg TRANSLINGU Q6H PRN PRN Reason: Nausea and Vomiting Last Admin: 09/20/25 21:22 Dose: 4 mg Potassium Chloride (Potassium Chloride Er 20 Meq Tab.Er.Prt) 20 meq PO DAILY [facility] Last Admin: 09/25/25 08:47 Dose: 20 meq Quetiapine Fumarate (Quetiapine Fumarate 25 Mg Tablet) 12.5 mg PO DAILY [facility] Last Admin: 09/25/25 08:45 Dose: 12.5 mg Quetiapine Fumarate (Quetiapine Fumarate 25 Mg Tablet) 12.5 mg PO Q4H PRN PRN Reason: anxiety/agitation Quetiapine Fumarate (Quetiapine Fumarate 50 Mg Tablet) 50 mg PO BEDTIME [facility] Last Admin: 09/24/25 20:10 Dose: 50 mg Home Medications ?Medication ?Instructions ?Recorded ?Confirmed ?Last Taken ?Type omeprazole 40 mg capsule,delayed 40 mg PO DAILY@0630 05/15/25 09/16/25 07/10/25 History release potassium chloride 20 mEq 20 meq PO DAILY 05/15/25 09/16/25 07/03/25 History tablet,extended release(part/cryst) carvedilol 25 mg tablet 25 mg PO BID 05/17/25 09/16/25 07/03/25 History buspirone 15 mg tablet 10 mg PO BID 07/11/25 09/16/25 Unknown History bupropion HCl 100 mg tablet,12 hr 100 mg PO QAM 09/16/25 09/16/25 Unknown History sustained-release bupropion HCl 75 mg tablet 75 mg PO QAM 09/16/25 09/16/25 Unknown History lorazepam 0.5 mg tablet 0.5 mg PO TID PRN Anxiety 09/17/25 09/17/25 09/14/25 History Physical Exam Exam: Exam: No apparent distress Nonicteric Abdomen soft, nondistended Alert and oriented x3, uses walker to ambulate Vital Signs: Vital Signs: Last Vital Signs Temp 98.2 F 09/25/25 08:00 Pulse 71 09/25/25 08:00 Resp 16 09/25/25 08:00 BP 129/73 09/25/25 08:00 Pulse Ox 98 09/25/25 08:00 O2 Del Method Room Air 09/25/25 08:00 BMI result Body Mass Index 22.3 Results Labs 09/19/25 07:17 09/19/25 07:17 Microbiology Microbiology Results: Microbiology 09/16/25 Unknown Urine clean catch - Clean Catch Midstream Urine Culture - Final Assessment and Plan (1) Constipation: Status: Acute (2) Lymphocytic colitis: Status: Acute Plan Patient currently with constipation, with hard infrequent stools. Lymphocytic colitis appears to be in clinical remission. Plan: -MiraLax 17g daily x 3 days and then PRN thereafter -Bisacodyl 10 mg at bedtime x 2 days and then PRN thereafter -budesonide discontinued, as patient does not report any diarrhea -if she does have recurrence of diarrhea which persists even after holding all the bowel regimen, would recommend treatment with loperamide 2 mg 1-2 times daily. Resume budesonide if continues to have >3 loose bowel movements despite loperamide. Thank you for allowing me to participate in her care. Please do not hesitate to reach out for any questions or concerns. Procedures Date of Service Date of Service: 09/26/25
[2025-09-25 19:41] VITALS: BP 144/66; PULSE 75; RESP 15; TEMP 36.7; O2SAT 96
[2025-09-25 21:16] VITALS: BP 144/66; PULSE 75
--- NOTE | 2025-09-25 22:29 | HO.PSYCHPN ---
Subjective Subjective Date of Service: 09/26/25 Reason For Visit: SI Depression Interim History: Pt wit significant anxiety rumination worry regarding her thought were she imagined burning the house social c/o gi sx Mental Status Exam Mental Status Exam Patient Appearance: Appropriate Patient Orientation: Person, Place, Time and Situation Level of Consciousness: Awake Patient Behavior: Appropriate Mood Description: Depressed and Anxious Affect Description: Constricted and Apprehensive Ability to Follow Directions: Good Speech Pattern: Clear Memory Description: Intact Hallucinations: None Delusions: Not Present Thought Process: Rumination and Linear Thought Content: positive for Preoccupation and negative for Suicidal Ideation Depressive Symptoms: Increased Anxiety, Difficulty Sleeping, Loss of Int. in Activity, Hopelessness, Isolating-Friends/Family, Thoughts of /Suicide and Loss of Energy Judgement: Fair (Patient denies plan or intent states at times she was suffering so much that she would mind if she was not here) Diagnostics Vital Signs (24Hr): Vital Signs - 24 hr 09/25/25 08:00 09/25/25 19:41 09/25/25 21:16 Temperature 98.2 F 98.1 F Pulse Rate 71 75 Respiratory Rate 16 15 Blood Pressure 129/73 144/66 H 144/66 H Pulse Oximetry 98 96 Oxygen Delivery Method Room Air Room Air 09/25/25 21:16 Temperature Pulse Rate 75 Respiratory Rate Blood Pressure 144/66 H Pulse Oximetry Oxygen Delivery Method BMI result Body Mass Index 22.3 Labs 09/19/25 07:17 09/19/25 07:17 Medications Medications Current Medications Acetaminophen (Acetaminophen 325 Mg Tablet) 650 mg PO Q6H PRN PRN Reason: Headache/Pain, Scale 1-10 Al Hydroxide/Mg Hydroxide (Magnesium Hydrox/Alum Hydrox 30 Ml Oral.Susp) 30 ml PO Q6H PRN PRN Reason: Heartburn/Nausea Last Admin: 09/24/25 20:11 Dose: 30 ml Albuterol Sulfate (Albuterol Sulfate 90 Mcg 8 Gm Inhaler) 2 puff INHALE RQ6H PRN PRN Reason: Shortness of breath or wheeze Amlodipine Besylate (Amlodipine Besylate 5 Mg Tablet) 5 mg PO BEDTIME [facility]; Protocol Last Admin: 09/25/25 21:16 Dose: 5 mg Budesonide (Budesonide Dr 3 Mg Capsule) 9 mg PO DAILY [facility] Last Admin: 09/25/25 08:46 Dose: 9 mg Buspirone HCl (Buspirone Hcl 5 Mg Tablet) 15 mg PO BID [facility] Last Admin: 09/25/25 21:16 Dose: 15 mg Carvedilol (Carvedilol 25 Mg Tablet) 25 mg PO BID [facility]; Protocol Last Admin: 09/25/25 21:16 Dose: 25 mg Hydroxyzine HCl (Hydroxyzine Hcl 10 Mg Tablet) 10 mg PO BEDTIME PRN PRN Reason: Insomnia Last Admin: 09/24/25 02:01 Dose: 10 mg Loperamide HCl (Loperamide Hcl 2 Mg Capsule) 2 mg PO Q4H PRN PRN Reason: Diarrhea Lorazepam (Lorazepam 0.5 Mg Tablet) 0.5 mg PO TID [facility] Last Admin: 09/25/25 21:16 Dose: 0.5 mg Magnesium Hydroxide (Milk Of Magnesia 30 Ml Oral.Susp) 30 ml PO DAILY PRN PRN Reason: Constipation Meclizine HCl (Meclizine Hcl 12.5 Mg Tablet) 12.5 mg PO Q6H PRN PRN Reason: Dizziness Omeprazole (Omeprazole 40 Mg Capsule.Dr) 40 mg PO DAILY@0630 [facility] Last Admin: 09/25/25 05:49 Dose: 40 mg Ondansetron HCl (Ondansetron Odt 4 Mg Tab.Rapdis) 4 mg TRANSLINGU Q6H PRN PRN Reason: Nausea and Vomiting Last Admin: 09/20/25 21:22 Dose: 4 mg Potassium Chloride (Potassium Chloride Er 20 Meq Tab.Er.Prt) 20 meq PO DAILY [facility] Last Admin: 09/25/25 08:47 Dose: 20 meq Quetiapine Fumarate (Quetiapine Fumarate 25 Mg Tablet) 12.5 mg PO DAILY [facility] Last Admin: 09/25/25 08:45 Dose: 12.5 mg Quetiapine Fumarate (Quetiapine Fumarate 25 Mg Tablet) 12.5 mg PO Q4H PRN PRN Reason: anxiety/agitation Quetiapine Fumarate (Quetiapine Fumarate 50 Mg Tablet) 50 mg PO BEDTIME [facility] Last Admin: 09/25/25 21:16 Dose: 50 mg Allergies Allergies Allergy/AdvReac Type Severity Reaction Status Date / Time Codeine Sulfate Allergy Severe Anaphylaxis Verified 09/16/25 08:14 diphenhydramine (From Allergy Intermediate sweats, Verified 09/16/25 08:14 Benadryl) palpitation egg Allergy Intermediate Heartburn Verified 09/16/25 08:14 Sulfa (Sulfonamide Allergy Intermediate RASH Verified 09/16/25 08:14 Antibiotics) (SULFA (SULFONAMIDE ANTIBIOTICS)) cefuroxime AdvReac Intermediate delerium Verified 09/16/25 08:14 ,paranoia Assessment & Plan Assessment & Plan (1) Depression, major, severe recurrence: Status: Acute Code(s): F33.2 - Major depressive disorder, recurrent severe without psychotic features (2) Panic disorder [episodic paroxysmal anxiety]: Status: Acute Code(s): F41.0 - Panic disorder [episodic paroxysmal anxiety] (3) Generalized anxiety disorder: Status: Acute Code(s): F41.1 - Generalized anxiety disorder Plan Patient presents with an ongoing severe agitated depression feeling nothing is going right in her life that she is suffering mentally and physically and feeling off well what to do with her house and now having to do major repairs on her heating system and feeling overwhelmed that she had the where with all to move into assisted living in all that would entail. She denies commands to harm herself she had an intrusive thought about burning the house which seem more like a fear than an impulse and there is a history of OCD handwashing and other intrusive fears that are times irrational. 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 Was ever taken some information about CBT and education regarding OCD increase Seroquel as tolerated. Educated regarding intrusive self-harm images appear more as OCD symptoms certainly impulsive 09/25/25 Encourage cbt education saftety anxiety management cont seroquel and prn devora 05 tid Reason for continued inpatient stay Substantial Risk for: harm to self, inability to function and med/psych decompensation Time Spent With Patient Time: Total time managing care of this patient today ____ minutes.
[2025-09-26 08:00] VITALS: BP 127/70; PULSE 80; TEMP 36.7; O2SAT 100
[2025-09-26] MEDS: Budesonide DR 3 MG Capsule 9 MG PO (08:58)
[2025-09-26] MEDS: Potassium Chloride ER 20 MEQ TAB.ER.PRT PO (08:58)
--- NOTE | 2025-09-26 16:16 | HO.PSYCHPN ---
Subjective Subjective Date of Service: 09/26/25 Reason For Visit: SI Depression Subjective Notes: Conditional Voluntary Interim History: Patient seen psychiatric follow-up. Patient depressed anxious and ruminating. Feels overwhelmed at times not supported. Active in the you attending groups poor sleep appetite at difficult GI symptoms seen by Gastroenterology Medication Compliance: Yes Mental Status Exam Mental Status Exam Patient Appearance: Appropriate Patient Orientation: Person, Place, Time and Situation Level of Consciousness: Awake Patient Behavior: Appropriate Mood Description: Depressed and Anxious Affect Description: Constricted and Apprehensive Ability to Follow Directions: Good Speech Pattern: Clear Memory Description: Intact Hallucinations: None Delusions: Not Present Thought Process: Rumination and Linear Thought Content: positive for Preoccupation and negative for Suicidal Ideation Depressive Symptoms: Increased Anxiety, Difficulty Sleeping, Loss of Int. in Activity, Hopelessness, Isolating-Friends/Family, Thoughts of /Suicide and Loss of Energy Judgement: Fair (Patient denies plan or intent states at times she was suffering so much that she would mind if she was not here) Diagnostics Vital Signs (24Hr): Vital Signs - 24 hr 09/25/25 19:41 09/25/25 21:16 09/25/25 21:16 Temperature 98.1 F Pulse Rate 75 75 Respiratory Rate 15 Blood Pressure 144/66 H 144/66 H 144/66 H Pulse Oximetry 96 Oxygen Delivery Method Room Air 09/26/25 08:00 Temperature 98.1 F Pulse Rate 80 Respiratory Rate Blood Pressure 127/70 Pulse Oximetry 100 Oxygen Delivery Method BMI result Body Mass Index 22.3 Labs 09/19/25 07:17 09/19/25 07:17 Medications Medications Current Medications Acetaminophen (Acetaminophen 325 Mg Tablet) 650 mg PO Q6H PRN PRN Reason: Headache/Pain, Scale 1-10 Al Hydroxide/Mg Hydroxide (Magnesium Hydrox/Alum Hydrox 30 Ml Oral.Susp) 30 ml PO Q6H PRN PRN Reason: Heartburn/Nausea Last Admin: 09/24/25 20:11 Dose: 30 ml Albuterol Sulfate (Albuterol Sulfate 90 Mcg 8 Gm Inhaler) 2 puff INHALE RQ6H PRN PRN Reason: Shortness of breath or wheeze Amlodipine Besylate (Amlodipine Besylate 5 Mg Tablet) 5 mg PO BEDTIME [facility]; Protocol Last Admin: 09/25/25 21:16 Dose: 5 mg Budesonide (Budesonide Dr 3 Mg Capsule) 9 mg PO DAILY [facility] Last Admin: 09/26/25 08:58 Dose: 9 mg Buspirone HCl (Buspirone Hcl 5 Mg Tablet) 15 mg PO BID [facility] Last Admin: 09/26/25 08:57 Dose: 15 mg Carvedilol (Carvedilol 25 Mg Tablet) 25 mg PO BID [facility]; Protocol Last Admin: 09/26/25 08:57 Dose: 25 mg Hydroxyzine HCl (Hydroxyzine Hcl 10 Mg Tablet) 10 mg PO BEDTIME PRN PRN Reason: Insomnia Last Admin: 09/24/25 02:01 Dose: 10 mg Loperamide HCl (Loperamide Hcl 2 Mg Capsule) 2 mg PO Q4H PRN PRN Reason: Diarrhea Lorazepam (Lorazepam 0.5 Mg Tablet) 0.5 mg PO TID [facility] Last Admin: 09/26/25 15:28 Dose: 0.5 mg Magnesium Hydroxide (Milk Of Magnesia 30 Ml Oral.Susp) 30 ml PO DAILY PRN PRN Reason: Constipation Meclizine HCl (Meclizine Hcl 12.5 Mg Tablet) 12.5 mg PO Q6H PRN PRN Reason: Dizziness Omeprazole (Omeprazole 40 Mg Capsule.Dr) 40 mg PO DAILY@0630 [facility] Last Admin: 09/26/25 05:28 Dose: 40 mg Ondansetron HCl (Ondansetron Odt 4 Mg Tab.Rapdis) 4 mg TRANSLINGU Q6H PRN PRN Reason: Nausea and Vomiting Last Admin: 09/20/25 21:22 Dose: 4 mg Potassium Chloride (Potassium Chloride Er 20 Meq Tab.Er.Prt) 20 meq PO DAILY [facility] Last Admin: 09/26/25 08:58 Dose: 20 meq Quetiapine Fumarate (Quetiapine Fumarate 25 Mg Tablet) 12.5 mg PO DAILY [facility] Last Admin: 09/26/25 08:59 Dose: 12.5 mg Quetiapine Fumarate (Quetiapine Fumarate 25 Mg Tablet) 12.5 mg PO Q4H PRN PRN Reason: anxiety/agitation Quetiapine Fumarate (Quetiapine Fumarate 50 Mg Tablet) 50 mg PO BEDTIME [facility] Last Admin: 09/25/25 21:16 Dose: 50 mg Allergies Allergies Allergy/AdvReac Type Severity Reaction Status Date / Time Codeine Sulfate Allergy Severe Anaphylaxis Verified 09/16/25 08:14 diphenhydramine (From Allergy Intermediate sweats, Verified 09/16/25 08:14 Benadryl) palpitation egg Allergy Intermediate Heartburn Verified 09/16/25 08:14 Sulfa (Sulfonamide Allergy Intermediate RASH Verified 09/16/25 08:14 Antibiotics) (SULFA (SULFONAMIDE ANTIBIOTICS)) cefuroxime AdvReac Intermediate delerium Verified 09/16/25 08:14 ,paranoia Assessment & Plan Assessment & Plan (1) Depression, major, severe recurrence: Status: Acute Code(s): F33.2 - Major depressive disorder, recurrent severe without psychotic features (2) Panic disorder [episodic paroxysmal anxiety]: Status: Acute Code(s): F41.0 - Panic disorder [episodic paroxysmal anxiety] (3) Generalized anxiety disorder: Status: Acute Code(s): F41.1 - Generalized anxiety disorder Plan Patient presents with an ongoing severe agitated depression feeling nothing is going right in her life that she is suffering mentally and physically and feeling off well what to do with her house and now having to do major repairs on her heating system and feeling overwhelmed that she had the where with all to move into assisted living in all that would entail. She denies commands to harm herself she had an intrusive thought about burning the house which seem more like a fear than an impulse and there is a history of OCD handwashing and other intrusive fears that are times irrational. 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 Was ever taken some information about CBT and education regarding OCD increase Seroquel as tolerated. Educated regarding intrusive self-harm images appear more as OCD symptoms certainly impulsive 09/26/2025 Patients mood depressed and anxious active taking in information regarding managing her thoughts tolerating Seroquel feels it is somewhat helpful. Feels overwhelmed with difficulties at her house needing a boiler feeling overwhelmed at times by her medical problems Reason for continued inpatient stay Substantial Risk for: harm to self, inability to function, rapid decompensation and med/psych decompensation Time Spent With Patient Time: Total time managing care of this patient today ____ minutes.
[2025-09-26 19:32] VITALS: BP 136/73; PULSE 82; RESP 18; TEMP 36.6; O2SAT 97
[2025-09-26 20:28] VITALS: BP 136/73; PULSE 82
[2025-09-27 08:00] VITALS: BP 119/61; PULSE 67; TEMP 36.6; O2SAT 98
[2025-09-27] MEDS: Potassium Chloride ER 20 MEQ TAB.ER.PRT PO (08:18)
[2025-09-27 20:00] VITALS: BP 131/66; PULSE 83; RESP 16; TEMP 36.9; O2SAT 98
[2025-09-27 20:53] VITALS: BP 131/66
[2025-09-27 20:54] VITALS: BP 131/66; PULSE 83
--- NOTE | 2025-09-27 23:23 | HO.PSYCHPN ---
Subjective Subjective Date of Service: 09/27/25 Reason For Visit: SI Depression Subjective Notes: Conditional Voluntary Interim History: Patient seen psychiatric follow-up. Patient's mood remains depressed anxious ruminating. She is active in the milieu attending groups sleep difficult appetite problems continues to have some GI symptoms but some improvement noted bowel regimen per gastroenterology was somewhat helpful Mental Status Exam Mental Status Exam Patient Appearance: Appropriate Patient Orientation: Person, Place, Time and Situation Level of Consciousness: Awake Patient Behavior: Appropriate Mood Description: Depressed and Anxious Affect Description: Constricted and Apprehensive Ability to Follow Directions: Good Speech Pattern: Clear Memory Description: Intact Hallucinations: None Delusions: Not Present Thought Process: Rumination and Linear Thought Content: positive for Preoccupation and negative for Suicidal Ideation Depressive Symptoms: Increased Anxiety, Difficulty Sleeping, Loss of Int. in Activity, Hopelessness, Isolating-Friends/Family, Thoughts of /Suicide and Loss of Energy Judgement: Fair (Patient denies plan or intent states at times she was suffering so much that she would mind if she was not here) Diagnostics Vital Signs (24Hr): Vital Signs - 24 hr 09/27/25 08:00 09/27/25 20:00 09/27/25 20:53 Temperature 97.8 F 98.4 F Pulse Rate 67 83 Respiratory Rate 16 Blood Pressure 119/61 131/66 131/66 Pulse Oximetry 98 98 Oxygen Delivery Method Room Air 09/27/25 20:54 Temperature Pulse Rate 83 Respiratory Rate Blood Pressure 131/66 Pulse Oximetry Oxygen Delivery Method BMI result Body Mass Index 22.3 Labs 09/19/25 07:17 09/19/25 07:17 Medications Medications Current Medications Acetaminophen (Acetaminophen 325 Mg Tablet) 650 mg PO Q6H PRN PRN Reason: Headache/Pain, Scale 1-10 Al Hydroxide/Mg Hydroxide (Magnesium Hydrox/Alum Hydrox 30 Ml Oral.Susp) 30 ml PO Q6H PRN PRN Reason: Heartburn/Nausea Last Admin: 09/24/25 20:11 Dose: 30 ml Albuterol Sulfate (Albuterol Sulfate 90 Mcg 8 Gm Inhaler) 2 puff INHALE RQ6H PRN PRN Reason: Shortness of breath or wheeze Amlodipine Besylate (Amlodipine Besylate 5 Mg Tablet) 5 mg PO BEDTIME [facility]; Protocol Last Admin: 09/27/25 20:53 Dose: 5 mg Buspirone HCl (Buspirone Hcl 5 Mg Tablet) 15 mg PO BID [facility] Last Admin: 09/27/25 20:52 Dose: 15 mg Carvedilol (Carvedilol 25 Mg Tablet) 25 mg PO BID [facility]; Protocol Last Admin: 09/27/25 20:54 Dose: 25 mg Hydroxyzine HCl (Hydroxyzine Hcl 10 Mg Tablet) 10 mg PO BEDTIME PRN PRN Reason: Insomnia Last Admin: 09/24/25 02:01 Dose: 10 mg Loperamide HCl (Loperamide Hcl 2 Mg Capsule) 2 mg PO Q4H PRN PRN Reason: Diarrhea Lorazepam (Lorazepam 0.5 Mg Tablet) 0.5 mg PO TID [facility] Last Admin: 09/27/25 20:54 Dose: 0.5 mg Magnesium Hydroxide (Milk Of Magnesia 30 Ml Oral.Susp) 30 ml PO DAILY PRN PRN Reason: Constipation Meclizine HCl (Meclizine Hcl 12.5 Mg Tablet) 12.5 mg PO Q6H PRN PRN Reason: Dizziness Omeprazole (Omeprazole 40 Mg Capsule.Dr) 40 mg PO DAILY@0630 [facility] Last Admin: 09/27/25 05:31 Dose: 40 mg Ondansetron HCl (Ondansetron Odt 4 Mg Tab.Rapdis) 4 mg TRANSLINGU Q6H PRN PRN Reason: Nausea and Vomiting Last Admin: 09/20/25 21:22 Dose: 4 mg Polyethylene Glycol (Polyethylene Glycol 3350 17 Gm Powd.Pack) 17 gm PO DAILY [facility] Stop: 09/28/25 09:01 Last Admin: 09/27/25 08:19 Dose: 17 gm Potassium Chloride (Potassium Chloride Er 20 Meq Tab.Er.Prt) 20 meq PO DAILY [facility] Last Admin: 09/27/25 08:18 Dose: 20 meq Quetiapine Fumarate (Quetiapine Fumarate 25 Mg Tablet) 12.5 mg PO DAILY [facility] Last Admin: 09/27/25 08:18 Dose: 12.5 mg Quetiapine Fumarate (Quetiapine Fumarate 25 Mg Tablet) 12.5 mg PO Q4H PRN PRN Reason: anxiety/agitation Quetiapine Fumarate (Quetiapine Fumarate 50 Mg Tablet) 50 mg PO BEDTIME [facility] Last Admin: 09/27/25 20:53 Dose: 50 mg Allergies Allergies Allergy/AdvReac Type Severity Reaction Status Date / Time Codeine Sulfate Allergy Severe Anaphylaxis Verified 09/16/25 08:14 diphenhydramine (From Allergy Intermediate sweats, Verified 09/16/25 08:14 Benadryl) palpitation egg Allergy Intermediate Heartburn Verified 09/16/25 08:14 Sulfa (Sulfonamide Allergy Intermediate RASH Verified 09/16/25 08:14 Antibiotics) (SULFA (SULFONAMIDE ANTIBIOTICS)) cefuroxime AdvReac Intermediate delerium Verified 09/16/25 08:14 ,paranoia Assessment & Plan Assessment & Plan (1) Depression, major, severe recurrence: Status: Acute Code(s): F33.2 - Major depressive disorder, recurrent severe without psychotic features (2) Panic disorder [episodic paroxysmal anxiety]: Status: Acute Code(s): F41.0 - Panic disorder [episodic paroxysmal anxiety] (3) Generalized anxiety disorder: Status: Acute Code(s): F41.1 - Generalized anxiety disorder Plan Patient presents with an ongoing severe agitated depression feeling nothing is going right in her life that she is suffering mentally and physically and feeling off well what to do with her house and now having to do major repairs on her heating system and feeling overwhelmed that she had the where with all to move into assisted living in all that would entail. She denies commands to harm herself she had an intrusive thought about burning the house which seem more like a fear than an impulse and there is a history of OCD handwashing and other intrusive fears that are times irrational. 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 Was ever taken some information about CBT and education regarding OCD increase Seroquel as tolerated. Educated regarding intrusive self-harm images appear more as OCD symptoms certainly impulsive 09/27/2025 Increase BuSpar to 20 b.i.d. increase Seroquel 75 at bedtime monitor for gait disturbance over-sedation continues to have anxiety rumination depressive symptoms fearful of returning home and have intrusive self-harming thoughts continues to need education regarding OCD in obsessional thoughts Informed Consent: further education needed Reason for continued inpatient stay Substantial Risk for: inability to function and rapid decompensation Time Spent With Patient Time: Total time managing care of this patient today ____ minutes. 30
[2025-09-28 08:05] VITALS: BP 124/64; PULSE 62; RESP 16; TEMP 36.3; O2SAT 98
[2025-09-28] MEDS: Potassium Chloride ER 20 MEQ TAB.ER.PRT PO (08:24)
--- NOTE | 2025-09-28 08:53 | HO.PSYCHPN ---
Subjective Subjective Date of Service: 09/28/25 Reason For Visit: SI Depression Subjective Notes: Conditional Voluntary Interim History: Patient seen psychiatric follow-up. Patient's mood remains depressed anxious ruminating. She is active in the milieu attending groups sleep difficult appetite problems continues to have some GI symptoms but some improvement noted bowel regimen per gastroenterology was somewhat helpful Review of Systems Review of Systems Denies any shortness of breath, chest pain, headaches, dysuria, abdominal pain or discomfort, nausea, vomiting. +diarrhea. Denies fever or chills. Yes all other systems are reviewed and are negative Mental Status Exam Mental Status Exam Narrative: Appearance: casually groomed, fair hygiene, in NAD Behavior: cooperative Psychomotor: no agitation or retardation noted Speech: clear, normal rate/rhythm/volume, spontaneous TP: linear TC: worried about stressors at home Mood: better Affect: congruent SI: none HI: none VH/AH: none Delusions: none Insight/judgment: fair x 2 memory/cog: alert, oriented x 3. Diagnostics Vital Signs (24Hr): Vital Signs - 24 hr 09/27/25 20:00 09/27/25 20:53 09/27/25 20:54 Temperature 98.4 F Pulse Rate 83 83 Respiratory Rate 16 Blood Pressure 131/66 131/66 131/66 Pulse Oximetry 98 Oxygen Delivery Method Room Air 09/28/25 08:05 Temperature 97.4 F Pulse Rate 62 Respiratory Rate 16 Blood Pressure 124/64 Pulse Oximetry 98 Oxygen Delivery Method Room Air BMI result Body Mass Index 22.3 Labs 09/19/25 07:17 09/19/25 07:17 Medications Medications Current Medications Acetaminophen (Acetaminophen 325 Mg Tablet) 650 mg PO Q6H PRN PRN Reason: Headache/Pain, Scale 1-10 Al Hydroxide/Mg Hydroxide (Magnesium Hydrox/Alum Hydrox 30 Ml Oral.Susp) 30 ml PO Q6H PRN PRN Reason: Heartburn/Nausea Last Admin: 09/24/25 20:11 Dose: 30 ml Albuterol Sulfate (Albuterol Sulfate 90 Mcg 8 Gm Inhaler) 2 puff INHALE RQ6H PRN PRN Reason: Shortness of breath or wheeze Amlodipine Besylate (Amlodipine Besylate 5 Mg Tablet) 5 mg PO BEDTIME [facility]; Protocol Last Admin: 09/27/25 20:53 Dose: 5 mg Buspirone HCl (Buspirone Hcl 10 Mg Tablet) 20 mg PO BID [facility] Last Admin: 09/28/25 08:22 Dose: 20 mg Carvedilol (Carvedilol 25 Mg Tablet) 25 mg PO BID [facility]; Protocol Last Admin: 09/28/25 08:23 Dose: 25 mg Hydroxyzine HCl (Hydroxyzine Hcl 10 Mg Tablet) 10 mg PO BEDTIME PRN PRN Reason: Insomnia Last Admin: 09/24/25 02:01 Dose: 10 mg Loperamide HCl (Loperamide Hcl 2 Mg Capsule) 2 mg PO Q4H PRN PRN Reason: Diarrhea Lorazepam (Lorazepam 0.5 Mg Tablet) 0.5 mg PO TID [facility] Last Admin: 09/28/25 08:24 Dose: 0.5 mg Magnesium Hydroxide (Milk Of Magnesia 30 Ml Oral.Susp) 30 ml PO DAILY PRN PRN Reason: Constipation Meclizine HCl (Meclizine Hcl 12.5 Mg Tablet) 12.5 mg PO Q6H PRN PRN Reason: Dizziness Omeprazole (Omeprazole 40 Mg Capsule.Dr) 40 mg PO DAILY@0630 [facility] Last Admin: 09/28/25 06:30 Dose: 40 mg Ondansetron HCl (Ondansetron Odt 4 Mg Tab.Rapdis) 4 mg TRANSLINGU Q6H PRN PRN Reason: Nausea and Vomiting Last Admin: 09/20/25 21:22 Dose: 4 mg Polyethylene Glycol (Polyethylene Glycol 3350 17 Gm Powd.Pack) 17 gm PO DAILY [facility] Stop: 09/28/25 09:01 Last Admin: 09/28/25 08:25 Dose: 17 gm Potassium Chloride (Potassium Chloride Er 20 Meq Tab.Er.Prt) 20 meq PO DAILY [facility] Last Admin: 09/28/25 08:24 Dose: 20 meq Quetiapine Fumarate (Quetiapine Fumarate 25 Mg Tablet) 12.5 mg PO DAILY [facility] Last Admin: 09/28/25 08:22 Dose: 12.5 mg Quetiapine Fumarate (Quetiapine Fumarate 25 Mg Tablet) 12.5 mg PO Q4H PRN PRN Reason: anxiety/agitation Quetiapine Fumarate (Quetiapine Fumarate 25 Mg Tablet) 75 mg PO BEDTIME [facility] Allergies Allergies Allergy/AdvReac Type Severity Reaction Status Date / Time Codeine Sulfate Allergy Severe Anaphylaxis Verified 09/16/25 08:14 diphenhydramine (From Allergy Intermediate sweats, Verified 09/16/25 08:14 Benadryl) palpitation egg Allergy Intermediate Heartburn Verified 09/16/25 08:14 Sulfa (Sulfonamide Allergy Intermediate RASH Verified 09/16/25 08:14 Antibiotics) (SULFA (SULFONAMIDE ANTIBIOTICS)) cefuroxime AdvReac Intermediate delerium Verified 09/16/25 08:14 ,paranoia Assessment & Plan Assessment & Plan (1) Depression, major, severe recurrence: Status: Acute Code(s): F33.2 - Major depressive disorder, recurrent severe without psychotic features (2) Panic disorder [episodic paroxysmal anxiety]: Status: Acute Code(s): F41.0 - Panic disorder [episodic paroxysmal anxiety] (3) Generalized anxiety disorder: Status: Acute Code(s): F41.1 - Generalized anxiety disorder Plan Patient presents with an ongoing severe agitated depression feeling nothing is going right in her life that she is suffering mentally and physically and feeling off well what to do with her house and now having to do major repairs on her heating system and feeling overwhelmed that she had the where with all to move into assisted living in all that would entail. She denies commands to harm herself she had an intrusive thought about burning the house which seem more like a fear than an impulse and there is a history of OCD handwashing and other intrusive fears that are times irrational. 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 Was ever taken some information about CBT and education regarding OCD increase Seroquel as tolerated. Educated regarding intrusive self-harm images appear more as OCD symptoms certainly impulsive 09/27/2025 Increase BuSpar to 20 b.i.d. increase Seroquel 75 at bedtime monitor for gait disturbance over-sedation continues to have anxiety rumination depressive symptoms fearful of returning home and have intrusive self-harming thoughts continues to need education regarding OCD in obsessional thoughts 09/28 reports feeling less depressed and less anxious but still worried about situation at home. Had episode of vomiting, resolved. VS stable. No behavioral concerns. Reason for continued inpatient stay Substantial Risk for: inability to function Time Spent With Patient Time: Total time managing care of this patient today ____ minutes.
[2025-09-28 10:19] VITALS: BP 125/60; PULSE 72; RESP 16; TEMP 36.2; O2SAT 97
[2025-09-28 13:54] VITALS: BMI 22.8
[2025-09-28 19:56] VITALS: BP 118/55
[2025-09-28 19:58] VITALS: BP 118/55; PULSE 71
[2025-09-28 20:00] VITALS: BP 118/55; PULSE 71; RESP 19; TEMP 36.7; O2SAT 98
[2025-09-29 08:30] VITALS: BP 105/58; PULSE 70; RESP 16; TEMP 36.5; O2SAT 97
[2025-09-29] MEDS: Potassium Chloride ER 20 MEQ TAB.ER.PRT PO (09:21)
--- NOTE | 2025-09-29 09:51 | P.PNPSI_ITS ---
Subjective Subjective Date of Service: 09/29/25 Reason For Visit: SI Depression Subjective Notes: Conditional Voluntary Interim History: Pleasant and in NAD I indicated I was covering for her attending today, she knew he would not be in She did not have complaints, questions or requests Review of Systems Review of Systems Denies any shortness of breath, chest pain, headaches, dysuria, abdominal pain or discomfort, nausea, vomiting. +diarrhea. Denies fever or chills. Yes all other systems are reviewed and are negative Mental Status Exam Mental Status Exam Narrative: Appearance: casually groomed, fair hygiene, in NAD Behavior: cooperative Psychomotor: no agitation or retardation noted Speech: clear, normal rate/rhythm/volume, spontaneous TP: linear TC: worried about stressors at home Mood: better Affect: congruent SI: none HI: none VH/AH: none Delusions: none Insight/judgment: fair x 2 memory/cog: alert, oriented x 3. Patient Appearance: Appropriate Patient Orientation: Person, Place, Time and Situation Level of Consciousness: Awake and Appropriate Patient Behavior: Appropriate and Cooperative Mood Description: Calm and Nervous Affect Description: Calm and Appropriate Patient Cognition Impaired: No Ability to Follow Directions: Good Speech Pattern: Clear Hallucinations: None Delusions: Not Present Thought Process: Goal Oriented and Linear Thought Content: positive for Goal Oriented Judgement: Fair Diagnostics Vital Signs (24Hr): Vital Signs - 24 hr 09/28/25 10:19 09/28/25 19:56 09/28/25 19:58 Temperature 97.2 F Pulse Rate 72 71 Respiratory Rate 16 Blood Pressure 125/60 118/55 L 118/55 L Pulse Oximetry 97 Oxygen Delivery Method Room Air 09/28/25 20:00 09/29/25 08:30 Temperature 98.1 F 97.7 F Pulse Rate 71 70 Respiratory Rate 19 16 Blood Pressure 118/55 L 105/58 L Pulse Oximetry 98 97 Oxygen Delivery Method Room Air Room Air BMI result Body Mass Index 22.8 Labs 09/19/25 07:17 09/19/25 07:17 Medications Medications Current Medications Acetaminophen (Acetaminophen 325 Mg Tablet) 650 mg PO Q6H PRN PRN Reason: Headache/Pain, Scale 1-10 Last Admin: 09/28/25 19:59 Dose: 650 mg Al Hydroxide/Mg Hydroxide (Magnesium Hydrox/Alum Hydrox 30 Ml Oral.Susp) 30 ml PO Q6H PRN PRN Reason: Heartburn/Nausea Last Admin: 09/24/25 20:11 Dose: 30 ml Albuterol Sulfate (Albuterol Sulfate 90 Mcg 8 Gm Inhaler) 2 puff INHALE RQ6H PRN PRN Reason: Shortness of breath or wheeze Amlodipine Besylate (Amlodipine Besylate 5 Mg Tablet) 5 mg PO BEDTIME [facility]; Protocol Last Admin: 09/28/25 19:56 Dose: 5 mg Buspirone HCl (Buspirone Hcl 10 Mg Tablet) 20 mg PO BID [facility] Last Admin: 09/29/25 09:20 Dose: 20 mg Carvedilol (Carvedilol 25 Mg Tablet) 25 mg PO BID [facility]; Protocol Last Admin: 09/29/25 09:20 Dose: 25 mg Hydroxyzine HCl (Hydroxyzine Hcl 10 Mg Tablet) 10 mg PO BEDTIME PRN PRN Reason: Insomnia Last Admin: 09/24/25 02:01 Dose: 10 mg Loperamide HCl (Loperamide Hcl 2 Mg Capsule) 2 mg PO Q4H PRN PRN Reason: Diarrhea Lorazepam (Lorazepam 0.5 Mg Tablet) 0.5 mg PO TID [facility] Last Admin: 09/29/25 09:21 Dose: 0.5 mg Magnesium Hydroxide (Milk Of Magnesia 30 Ml Oral.Susp) 30 ml PO DAILY PRN PRN Reason: Constipation Meclizine HCl (Meclizine Hcl 12.5 Mg Tablet) 12.5 mg PO Q6H PRN PRN Reason: Dizziness Omeprazole (Omeprazole 40 Mg Capsule.Dr) 40 mg PO DAILY@0630 [facility] Last Admin: 09/29/25 05:44 Dose: 40 mg Ondansetron HCl (Ondansetron Odt 4 Mg Tab.Rapdis) 4 mg TRANSLINGU Q6H PRN PRN Reason: Nausea and Vomiting Last Admin: 09/28/25 09:50 Dose: 4 mg Potassium Chloride (Potassium Chloride Er 20 Meq Tab.Er.Prt) 20 meq PO DAILY [facility] Last Admin: 09/29/25 09:21 Dose: 20 meq Quetiapine Fumarate (Quetiapine Fumarate 25 Mg Tablet) 12.5 mg PO DAILY [facility] Last Admin: 09/29/25 09:19 Dose: 12.5 mg Quetiapine Fumarate (Quetiapine Fumarate 25 Mg Tablet) 12.5 mg PO Q4H PRN PRN Reason: anxiety/agitation Quetiapine Fumarate (Quetiapine Fumarate 25 Mg Tablet) 75 mg PO BEDTIME [facility] Last Admin: 09/28/25 19:57 Dose: 75 mg Allergies Allergies Allergy/AdvReac Type Severity Reaction Status Date / Time Codeine Sulfate Allergy Severe Anaphylaxis Verified 09/16/25 08:14 diphenhydramine (From Allergy Intermediate sweats, Verified 09/16/25 08:14 Benadryl) palpitation egg Allergy Intermediate Heartburn Verified 09/16/25 08:14 Sulfa (Sulfonamide Allergy Intermediate RASH Verified 09/16/25 08:14 Antibiotics) (SULFA (SULFONAMIDE ANTIBIOTICS)) cefuroxime AdvReac Intermediate delerium Verified 09/16/25 08:14 ,paranoia Assessment & Plan Assessment & Plan (1) Depression, major, severe recurrence: Status: Acute Code(s): F33.2 - Major depressive disorder, recurrent severe without psychotic features (2) Panic disorder [episodic paroxysmal anxiety]: Status: Acute Code(s): F41.0 - Panic disorder [episodic paroxysmal anxiety] (3) Generalized anxiety disorder: Status: Acute Code(s): F41.1 - Generalized anxiety disorder Plan Patient presents with an ongoing severe agitated depression feeling nothing is going right in her life that she is suffering mentally and physically and feeling off well what to do with her house and now having to do major repairs on her heating system and feeling overwhelmed that she had the where with all to move into assisted living in all that would entail. She denies commands to harm herself she had an intrusive thought about burning the house which seem more like a fear than an impulse and there is a history of OCD handwashing and other intrusive fears that are times irrational. 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 Was ever taken some information about CBT and education regarding OCD increase Seroquel as tolerated. Educated regarding intrusive self-harm images appear more as OCD symptoms certainly impulsive 09/27/2025 Increase BuSpar to 20 b.i.d. increase Seroquel 75 at bedtime monitor for gait disturbance over-sedation continues to have anxiety rumination depressive symptoms fearful of returning home and have intrusive self-harming thoughts continues to need education regarding OCD in obsessional thoughts 09/28 reports feeling less depressed and less anxious but still worried about situation at home. Had episode of vomiting, resolved. VS stable. No behavioral concerns. Reason for continued inpatient stay Substantial Risk for: inability to function Time Spent With Patient Time: Total time managing care of this patient today _25___ minutes.
[2025-09-29 20:41] VITALS: BP 131/56; PULSE 81; RESP 18; TEMP 36.7; O2SAT 97
[2025-09-29 20:44] VITALS: BP 131/56; PULSE 80
[2025-09-30 08:00] VITALS: BP 127/62; PULSE 72; TEMP 36.6
--- NOTE | 2025-09-30 08:39 | HO.PSYCHPN ---
Subjective Subjective Date of Service: 09/30/25 Reason For Visit: SI Depression Subjective Notes: Conditional Voluntary Interim History: Pt sleeping through the night. She reports her mood is good, although still has some anxious mood. No SI/HI ongoing GI issues related to colitis. visible, social with peers. no behavioral concerns. Review of Systems Review of Systems Denies any shortness of breath, chest pain, headaches, dysuria, abdominal pain or discomfort, nausea, vomiting. +diarrhea. Denies fever or chills. Yes all other systems are reviewed and are negative Mental Status Exam Mental Status Exam Narrative: Appearance: casually groomed, fair hygiene, in NAD Behavior: cooperative Psychomotor: no agitation or retardation noted Speech: clear, normal rate/rhythm/volume, spontaneous TP: linear TC: worried about stressors at home Mood: better Affect: congruent SI: none HI: none VH/AH: none Delusions: none Insight/judgment: fair x 2 memory/cog: alert, oriented x 3. Diagnostics Vital Signs (24Hr): Vital Signs - 24 hr 09/29/25 20:41 09/29/25 20:44 09/29/25 20:44 Temperature 98.1 F Pulse Rate 81 80 Respiratory Rate 18 Blood Pressure 131/56 L 131/56 L 131/56 L Pulse Oximetry 97 Oxygen Delivery Method Room Air BMI result Body Mass Index 22.8 Labs 09/19/25 07:17 09/19/25 07:17 Medications Medications Current Medications Acetaminophen (Acetaminophen 325 Mg Tablet) 650 mg PO Q6H PRN PRN Reason: Headache/Pain, Scale 1-10 Last Admin: 09/28/25 19:59 Dose: 650 mg Al Hydroxide/Mg Hydroxide (Magnesium Hydrox/Alum Hydrox 30 Ml Oral.Susp) 30 ml PO Q6H PRN PRN Reason: Heartburn/Nausea Last Admin: 09/24/25 20:11 Dose: 30 ml Albuterol Sulfate (Albuterol Sulfate 90 Mcg 8 Gm Inhaler) 2 puff INHALE RQ6H PRN PRN Reason: Shortness of breath or wheeze Amlodipine Besylate (Amlodipine Besylate 5 Mg Tablet) 5 mg PO BEDTIME [facility]; Protocol Last Admin: 09/29/25 20:44 Dose: 5 mg Buspirone HCl (Buspirone Hcl 10 Mg Tablet) 20 mg PO BID [facility] Last Admin: 09/29/25 20:44 Dose: 20 mg Carvedilol (Carvedilol 25 Mg Tablet) 25 mg PO BID [facility]; Protocol Last Admin: 09/29/25 20:44 Dose: 25 mg Hydroxyzine HCl (Hydroxyzine Hcl 10 Mg Tablet) 10 mg PO BEDTIME PRN PRN Reason: Insomnia Last Admin: 09/24/25 02:01 Dose: 10 mg Loperamide HCl (Loperamide Hcl 2 Mg Capsule) 2 mg PO Q4H PRN PRN Reason: Diarrhea Lorazepam (Lorazepam 0.5 Mg Tablet) 0.5 mg PO TID [facility] Last Admin: 09/29/25 20:44 Dose: 0.5 mg Magnesium Hydroxide (Milk Of Magnesia 30 Ml Oral.Susp) 30 ml PO DAILY PRN PRN Reason: Constipation Meclizine HCl (Meclizine Hcl 12.5 Mg Tablet) 12.5 mg PO Q6H PRN PRN Reason: Dizziness Omeprazole (Omeprazole 40 Mg Capsule.Dr) 40 mg PO DAILY@0630 [facility] Last Admin: 09/30/25 05:36 Dose: 40 mg Ondansetron HCl (Ondansetron Odt 4 Mg Tab.Rapdis) 4 mg TRANSLINGU Q6H PRN PRN Reason: Nausea and Vomiting Last Admin: 09/28/25 09:50 Dose: 4 mg Potassium Chloride (Potassium Chloride Er 20 Meq Tab.Er.Prt) 20 meq PO DAILY [facility] Last Admin: 09/29/25 09:21 Dose: 20 meq Quetiapine Fumarate (Quetiapine Fumarate 25 Mg Tablet) 12.5 mg PO DAILY [facility] Last Admin: 09/29/25 09:19 Dose: 12.5 mg Quetiapine Fumarate (Quetiapine Fumarate 25 Mg Tablet) 12.5 mg PO Q4H PRN PRN Reason: anxiety/agitation Quetiapine Fumarate (Quetiapine Fumarate 25 Mg Tablet) 75 mg PO BEDTIME [facility] Last Admin: 09/29/25 20:45 Dose: 75 mg Allergies Allergies Allergy/AdvReac Type Severity Reaction Status Date / Time Codeine Sulfate Allergy Severe Anaphylaxis Verified 09/16/25 08:14 diphenhydramine (From Allergy Intermediate sweats, Verified 09/16/25 08:14 Benadryl) palpitation egg Allergy Intermediate Heartburn Verified 09/16/25 08:14 Sulfa (Sulfonamide Allergy Intermediate RASH Verified 09/16/25 08:14 Antibiotics) (SULFA (SULFONAMIDE ANTIBIOTICS)) cefuroxime AdvReac Intermediate delerium Verified 09/16/25 08:14 ,paranoia Assessment & Plan Assessment & Plan (1) Depression, major, severe recurrence: Status: Acute Code(s): F33.2 - Major depressive disorder, recurrent severe without psychotic features (2) Panic disorder [episodic paroxysmal anxiety]: Status: Acute Code(s): F41.0 - Panic disorder [episodic paroxysmal anxiety] (3) Generalized anxiety disorder: Status: Acute Code(s): F41.1 - Generalized anxiety disorder Plan Patient presents with an ongoing severe agitated depression feeling nothing is going right in her life that she is suffering mentally and physically and feeling off well what to do with her house and now having to do major repairs on her heating system and feeling overwhelmed that she had the where with all to move into assisted living in all that would entail. She denies commands to harm herself she had an intrusive thought about burning the house which seem more like a fear than an impulse and there is a history of OCD handwashing and other intrusive fears that are times irrational. 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 Was ever taken some information about CBT and education regarding OCD increase Seroquel as tolerated. Educated regarding intrusive self-harm images appear more as OCD symptoms certainly impulsive 09/27/2025 Increase BuSpar to 20 b.i.d. increase Seroquel 75 at bedtime monitor for gait disturbance over-sedation continues to have anxiety rumination depressive symptoms fearful of returning home and have intrusive self-harming thoughts continues to need education regarding OCD in obsessional thoughts 09/28 reports feeling less depressed and less anxious but still worried about situation at home. Had episode of vomiting, resolved. VS stable. No behavioral concerns. 09/30 stable, anxious at times. loose stools due to colitis. NO SI/HI. Reason for continued inpatient stay Substantial Risk for: inability to function Time Spent With Patient Time: Total time managing care of this patient today ____ minutes.
[2025-09-30] MEDS: Potassium Chloride ER 20 MEQ TAB.ER.PRT PO (09:44)
[2025-09-30 20:00] VITALS: BP 128/62; PULSE 72; RESP 16; TEMP 36.7; O2SAT 99
[2025-10-01 08:00] VITALS: BP 114/60; PULSE 89; RESP 16; TEMP 36.6; O2SAT 96
[2025-10-01] MEDS: Potassium Chloride ER 20 MEQ TAB.ER.PRT PO (08:39)
[2025-10-01 19:54] VITALS: BP 117/59; PULSE 71; RESP 18; TEMP 36.2; O2SAT 98
[2025-10-01 20:11] VITALS: BP 117/59
[2025-10-01 20:12] VITALS: BP 117/59; PULSE 71
--- NOTE | 2025-10-01 20:37 | HO.PSYCHPN ---
Subjective Subjective Date of Service: 10/01/25 Reason For Visit: SI Depression Interim History: Pt sleeping through the night. She reports her mood is good, although still has some anxious mood. No SI/HI ongoing GI issues related to colitis. visible, social with peers. no behavioral concerns. Review of Systems Review of Systems Denies any shortness of breath, chest pain, headaches, dysuria, abdominal pain or discomfort, nausea, vomiting. +diarrhea. Denies fever or chills. Yes all other systems are reviewed and are negative Mental Status Exam Mental Status Exam Narrative: Appearance: casually groomed, fair hygiene, in NAD Behavior: cooperative Psychomotor: no agitation or retardation noted Speech: clear, normal rate/rhythm/volume, spontaneous TP: linear TC: worried about stressors at home Mood: better Affect: congruent SI: none HI: none VH/AH: none Delusions: none Insight/judgment: fair x 2 memory/cog: alert, oriented x 3. Diagnostics Vital Signs (24Hr): Vital Signs - 24 hr 10/01/25 08:00 10/01/25 19:54 10/01/25 20:11 Temperature 98 F 97.2 F Pulse Rate 89 71 Respiratory Rate 16 18 Blood Pressure 114/60 117/59 L 117/59 L Pulse Oximetry 96 98 Oxygen Delivery Method Room Air 10/01/25 20:12 Temperature Pulse Rate 71 Respiratory Rate Blood Pressure 117/59 L Pulse Oximetry Oxygen Delivery Method BMI result Body Mass Index 22.8 Labs 09/19/25 07:17 09/19/25 07:17 Medications Medications Current Medications Acetaminophen (Acetaminophen 325 Mg Tablet) 650 mg PO Q6H PRN PRN Reason: Headache/Pain, Scale 1-10 Last Admin: 09/28/25 19:59 Dose: 650 mg Al Hydroxide/Mg Hydroxide (Magnesium Hydrox/Alum Hydrox 30 Ml Oral.Susp) 30 ml PO Q6H PRN PRN Reason: Heartburn/Nausea Last Admin: 09/24/25 20:11 Dose: 30 ml Albuterol Sulfate (Albuterol Sulfate 90 Mcg 8 Gm Inhaler) 2 puff INHALE RQ6H PRN PRN Reason: Shortness of breath or wheeze Amlodipine Besylate (Amlodipine Besylate 5 Mg Tablet) 5 mg PO BEDTIME [facility]; Protocol Last Admin: 10/01/25 20:11 Dose: 5 mg Buspirone HCl (Buspirone Hcl 10 Mg Tablet) 20 mg PO BID [facility] Last Admin: 10/01/25 20:12 Dose: 20 mg Carvedilol (Carvedilol 25 Mg Tablet) 25 mg PO BID [facility]; Protocol Last Admin: 10/01/25 20:12 Dose: 25 mg Hydroxyzine HCl (Hydroxyzine Hcl 10 Mg Tablet) 10 mg PO BEDTIME PRN PRN Reason: Insomnia Last Admin: 10/01/25 00:07 Dose: 10 mg Loperamide HCl (Loperamide Hcl 2 Mg Capsule) 2 mg PO Q4H PRN PRN Reason: Diarrhea Lorazepam (Lorazepam 0.5 Mg Tablet) 0.5 mg PO TID [facility] Last Admin: 10/01/25 20:11 Dose: 0.5 mg Magnesium Hydroxide (Milk Of Magnesia 30 Ml Oral.Susp) 30 ml PO DAILY PRN PRN Reason: Constipation Meclizine HCl (Meclizine Hcl 12.5 Mg Tablet) 12.5 mg PO Q6H PRN PRN Reason: Dizziness Omeprazole (Omeprazole 40 Mg Capsule.Dr) 40 mg PO DAILY@0630 [facility] Last Admin: 10/01/25 06:10 Dose: 40 mg Ondansetron HCl (Ondansetron Odt 4 Mg Tab.Rapdis) 4 mg TRANSLINGU Q6H PRN PRN Reason: Nausea and Vomiting Last Admin: 09/28/25 09:50 Dose: 4 mg Potassium Chloride (Potassium Chloride Er 20 Meq Tab.Er.Prt) 20 meq PO DAILY [facility] Last Admin: 10/01/25 08:39 Dose: 20 meq Quetiapine Fumarate (Quetiapine Fumarate 25 Mg Tablet) 12.5 mg PO DAILY [facility] Last Admin: 10/01/25 08:41 Dose: 12.5 mg Quetiapine Fumarate (Quetiapine Fumarate 25 Mg Tablet) 12.5 mg PO Q4H PRN PRN Reason: anxiety/agitation Quetiapine Fumarate (Quetiapine Fumarate 25 Mg Tablet) 75 mg PO BEDTIME [facility] Last Admin: 10/01/25 20:11 Dose: 75 mg Allergies Allergies Allergy/AdvReac Type Severity Reaction Status Date / Time Codeine Sulfate Allergy Severe Anaphylaxis Verified 09/16/25 08:14 diphenhydramine (From Allergy Intermediate sweats, Verified 09/16/25 08:14 Benadryl) palpitation egg Allergy Intermediate Heartburn Verified 09/16/25 08:14 Sulfa (Sulfonamide Allergy Intermediate RASH Verified 09/16/25 08:14 Antibiotics) (SULFA (SULFONAMIDE ANTIBIOTICS)) cefuroxime AdvReac Intermediate delerium Verified 09/16/25 08:14 ,paranoia Assessment & Plan Assessment & Plan (1) Depression, major, severe recurrence: Status: Acute Code(s): F33.2 - Major depressive disorder, recurrent severe without psychotic features (2) Panic disorder [episodic paroxysmal anxiety]: Status: Acute Code(s): F41.0 - Panic disorder [episodic paroxysmal anxiety] (3) Generalized anxiety disorder: Status: Acute Code(s): F41.1 - Generalized anxiety disorder Plan Patient presents with an ongoing severe agitated depression feeling nothing is going right in her life that she is suffering mentally and physically and feeling off well what to do with her house and now having to do major repairs on her heating system and feeling overwhelmed that she had the where with all to move into assisted living in all that would entail. She denies commands to harm herself she had an intrusive thought about burning the house which seem more like a fear than an impulse and there is a history of OCD handwashing and other intrusive fears that are times irrational. 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 Was ever taken some information about CBT and education regarding OCD increase Seroquel as tolerated. Educated regarding intrusive self-harm images appear more as OCD symptoms certainly impulsive 09/27/2025 Increase BuSpar to 20 b.i.d. increase Seroquel 75 at bedtime monitor for gait disturbance over-sedation continues to have anxiety rumination depressive symptoms fearful of returning home and have intrusive self-harming thoughts continues to need education regarding OCD in obsessional thoughts 09/28 reports feeling less depressed and less anxious but still worried about situation at home. Had episode of vomiting, resolved. VS stable. No behavioral concerns. 09/30 stable, anxious at times. loose stools due to colitis. NO SI/HI. 10/01 no change. continue tx. Reason for continued inpatient stay Substantial Risk for: inability to function Time Spent With Patient Time: Total time managing care of this patient today ____ minutes.
[2025-10-02 10:54] VITALS: BP 137/61; PULSE 78; RESP 16; TEMP 36.6; O2SAT 99
[2025-10-02] MEDS: Potassium Chloride ER 20 MEQ TAB.ER.PRT PO (11:05)
--- NOTE | 2025-10-02 11:07 | PC.NURSE ---
Pt received scheduled 0900 medications late. Provider Thierry Moraes notified and approved.
--- NOTE | 2025-10-02 11:18 | P.PNPSI_ITS ---
Subjective Subjective Date of Service: 10/02/25 Reason For Visit: SI Depression Subjective Notes: Conditional Voluntary Healthcare Proxy: Yes Interim History: Pt seen has socialization some dec in anxiety heat installed in house intrusive image haunts pt Medication Compliance: Yes Mental Status Exam Mental Status Exam Narrative: Appearance: casually groomed, fair hygiene, in NAD Behavior: cooperative Psychomotor: no agitation or retardation noted Speech: clear, normal rate/rhythm/volume, spontaneous TP: linear TC: worried about stressors at home Mood: better Affect: congruent SI: none HI: none VH/AH: none Delusions: none Insight/judgment: fair x 2 memory/cog: alert, oriented x 3. Diagnostics Vital Signs (24Hr): Vital Signs - 24 hr 10/01/25 19:54 10/01/25 20:11 10/01/25 20:12 Temperature 97.2 F Pulse Rate 71 71 Respiratory Rate 18 Blood Pressure 117/59 L 117/59 L 117/59 L Pulse Oximetry 98 Oxygen Delivery Method Room Air 10/02/25 10:54 Temperature 97.9 F Pulse Rate 78 Respiratory Rate 16 Blood Pressure 137/61 Pulse Oximetry 99 Oxygen Delivery Method Room Air BMI result Body Mass Index 22.8 Labs 09/19/25 07:17 10/02/25 13:39 Medications Medications Current Medications Acetaminophen (Acetaminophen 325 Mg Tablet) 650 mg PO Q6H PRN PRN Reason: Headache/Pain, Scale 1-10 Last Admin: 09/28/25 19:59 Dose: 650 mg Al Hydroxide/Mg Hydroxide (Magnesium Hydrox/Alum Hydrox 30 Ml Oral.Susp) 30 ml PO Q6H PRN PRN Reason: Heartburn/Nausea Last Admin: 09/24/25 20:11 Dose: 30 ml Albuterol Sulfate (Albuterol Sulfate 90 Mcg 8 Gm Inhaler) 2 puff INHALE RQ6H PRN PRN Reason: Shortness of breath or wheeze Amlodipine Besylate (Amlodipine Besylate 5 Mg Tablet) 5 mg PO BEDTIME [facility]; Protocol Last Admin: 10/01/25 20:11 Dose: 5 mg Buspirone HCl (Buspirone Hcl 10 Mg Tablet) 20 mg PO BID [place] Last Admin: 10/02/25 11:04 Dose: 20 mg Carvedilol (Carvedilol 25 Mg Tablet) 25 mg PO BID [facility]; Protocol Last Admin: 10/02/25 11:05 Dose: 25 mg Hydroxyzine HCl (Hydroxyzine Hcl 10 Mg Tablet) 10 mg PO BEDTIME PRN PRN Reason: Insomnia Last Admin: 10/01/25 00:07 Dose: 10 mg Loperamide HCl (Loperamide Hcl 2 Mg Capsule) 2 mg PO Q4H PRN PRN Reason: Diarrhea Lorazepam (Lorazepam 0.5 Mg Tablet) 0.5 mg PO TID [facility] Last Admin: 10/02/25 11:05 Dose: 0.5 mg Magnesium Hydroxide (Milk Of Magnesia 30 Ml Oral.Susp) 30 ml PO DAILY PRN PRN Reason: Constipation Meclizine HCl (Meclizine Hcl 12.5 Mg Tablet) 12.5 mg PO Q6H PRN PRN Reason: Dizziness Omeprazole (Omeprazole 40 Mg Capsule.Dr) 40 mg PO DAILY@0630 [facility] Last Admin: 10/02/25 05:50 Dose: 40 mg Ondansetron HCl (Ondansetron Odt 4 Mg Tab.Rapdis) 4 mg TRANSLINGU Q6H PRN PRN Reason: Nausea and Vomiting Last Admin: 09/28/25 09:50 Dose: 4 mg Potassium Chloride (Potassium Chloride Er 20 Meq Tab.Er.Prt) 20 meq PO DAILY [facility] Last Admin: 10/02/25 11:05 Dose: 20 meq Quetiapine Fumarate (Quetiapine Fumarate 25 Mg Tablet) 12.5 mg PO DAILY [facility] Last Admin: 10/02/25 11:04 Dose: 12.5 mg Quetiapine Fumarate (Quetiapine Fumarate 25 Mg Tablet) 12.5 mg PO Q4H PRN PRN Reason: anxiety/agitation Quetiapine Fumarate (Quetiapine Fumarate 25 Mg Tablet) 75 mg PO BEDTIME [facility] Last Admin: 10/01/25 20:11 Dose: 75 mg Allergies Allergies Allergy/AdvReac Type Severity Reaction Status Date / Time Codeine Sulfate Allergy Severe Anaphylaxis Verified 09/16/25 08:14 diphenhydramine (From Allergy Intermediate sweats, Verified 09/16/25 08:14 Benadryl) palpitation egg Allergy Intermediate Heartburn Verified 09/16/25 08:14 Sulfa (Sulfonamide Allergy Intermediate RASH Verified 09/16/25 08:14 Antibiotics) (SULFA (SULFONAMIDE ANTIBIOTICS)) cefuroxime AdvReac Intermediate delerium Verified 09/16/25 08:14 ,paranoia Assessment & Plan Assessment & Plan (1) Depression, major, severe recurrence: Status: Acute Code(s): F33.2 - Major depressive disorder, recurrent severe without psychotic features (2) Panic disorder [episodic paroxysmal anxiety]: Status: Acute Code(s): F41.0 - Panic disorder [episodic paroxysmal anxiety] (3) Generalized anxiety disorder: Status: Acute Code(s): F41.1 - Generalized anxiety disorder Plan Patient presents with an ongoing severe agitated depression feeling nothing is going right in her life that she is suffering mentally and physically and feeling off well what to do with her house and now having to do major repairs on her heating system and feeling overwhelmed that she had the where with all to move into assisted living in all that would entail. She denies commands to harm herself she had an intrusive thought about burning the house which seem more like a fear than an impulse and there is a history of OCD handwashing and other intrusive fears that are times irrational. 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 Was ever taken some information about CBT and education regarding OCD increase Seroquel as tolerated. Educated regarding intrusive self-harm images appear more as OCD symptoms certainly impulsive 09/27/2025 Increase BuSpar to 20 b.i.d. increase Seroquel 75 at bedtime monitor for gait disturbance over-sedation continues to have anxiety rumination depressive symptoms fearful of returning home and have intrusive self-harming thoughts continues to need education regarding OCD in obsessional thoughts 09/28 reports feeling less depressed and less anxious but still worried about situation at home. Had episode of vomiting, resolved. VS stable. No behav10/02/25 ioral concerns. 09/30 stable, anxious at times. loose stools due to colitis. NO SI/HI. 10/01 no change. continue tx. 10/02/25 Improved mood so si still has irrartional fears asks to in seroquel 100 hs d/ci n am if stable Patient educated on: diagnosis and medication risk/benefits Reason for continued inpatient stay Substantial Risk for: rapid decompensation and med/psych decompensation Time Spent With Patient Time: Total time managing care of this patient today ____ minutes.
[2025-10-02 14:14] LABS: Alanine Aminotransferase 21 U/L (0-31); Albumin Level 4.1 g/dL (3.5-5.0); Alkaline Phosphatase 74 U/L (39-117); Anion Gap 11 (12-20); Aspartate Amino Transferase 71 U/L (5-31); Blood Urea Nitrogen 21 mg/dL (9-16); Calcium 9.0 mg/dL (8.4-10.2); Carbon Dioxide 25 mmol/L (22-29); Chloride 108 mmol/L (96-108); Creatinine Clr Calc Pharmacy 41.9; Estimated Glomerular Filt Rate > 60; Magnesium 1.8 mg/dL (1.6-2.6); Potassium 4.5 mmol/L (3.3-5.1); Sodium 139 mmol/L (135-145); Total Protein 6.9 g/dL (6.5-8.0)
[2025-10-02 20:29] VITALS: BP 138/65; PULSE 68; RESP 16; TEMP 36.8; O2SAT 99
[2025-10-02 20:34] VITALS: BP 138/65; PULSE 68
[2025-10-03 08:20] VITALS: BP 121/68; PULSE 78; RESP 18; TEMP 36.7; O2SAT 98
[2025-10-03] MEDS: Potassium Chloride ER 20 MEQ TAB.ER.PRT PO (08:57)
--- NOTE | 2025-10-03 11:58 | PM.PSYDC ---
DS: Providers Provider Date of Service: 10/03/25 Date of admission: 09/18/25 12:18 Date of discharge: 10/03/25 Primary care physician: Arnulfo Villalba MD Attending physician on admission: Thierry Moraes Consults: 09/18/25 16:14 Consult to Hospitalist Routine Comment: Consulting Provider: [facility] Hospitalists Reason For Exam: uti c/o diarrhea ? tia 09/19/25 15:11 Consult to Gastroenterology Routine Consulting Provider: [facility] Gastroenterology Services Reason for consultation: ongoing vomiting daily diarrhea Has provider been notified: No 09/25/25 13:12 Consult to Gastroenterology Routine Consulting Provider: [facility] G[facility] Reason for consultation: ongoing repeated nausea vomiting diarrhea second consult ! Has provider been notified: No Attending physician on discharge: Thierry Moraes DS: Diagnosis Discharge Diagnosis (1) Depression, major, severe recurrence: Status: Acute (2) Panic disorder [episodic paroxysmal anxiety]: Status: Acute (3) Generalized anxiety disorder: Status: Acute DS: Medications Discharge Medications Home Medications: Home Medications ?Medication ?Instructions ?Recorded ?Confirmed omeprazole 40 mg capsule,delayed 40 mg PO DAILY@0630 05/15/25 09/16/25 release potassium chloride 20 mEq 20 meq PO DAILY 05/15/25 09/16/25 tablet,extended release(part/cryst) carvedilol 25 mg tablet 25 mg PO BID 05/17/25 09/16/25 lorazepam 0.5 mg tablet 0.5 mg PO TID PRN Anxiety 09/17/25 09/17/25 Previous Rx's ?Medication ?Instructions ?Recorded amlodipine 5 mg tablet 5 mg PO BEDTIME #90 tabs 07/06/25 hydroxyzine HCl 10 mg tablet 10 mg PO BEDTIME PRN insomnia 90 07/13/25 days #90 tabs buspirone 10 mg tablet 20 mg (2 x 10 mg) PO BID 30 days 10/03/25 #120 tabs escitalopram oxalate 5 mg tablet 5 mg PO DAILY 30 days #30 tabs 10/03/25 loperamide 2 mg capsule 2 mg PO Q4H PRN Diarrhea 30 days 10/03/25 #60 caps meclizine 12.5 mg tablet 12.5 mg PO Q6H PRN Dizziness 30 10/03/25 days #60 tabs ondansetron 4 mg disintegrating 4 mg translingual Q6H PRN Nausea 10/03/25 tablet And Vomiting 30 days #15 tabs quetiapine 100 mg tablet 100 mg PO BEDTIME 30 days #30 tabs 10/03/25 quetiapine 25 mg tablet 12.5 mg (1/2 x 25 mg) PO Q4H PRN 10/03/25 anxiety/agitation 30 days #30 tabs Data Data Completed and Pending Completed studies during hospitalization [Text1]: 10/02/25 13:39 Sodium 139 Potassium 4.5 D Chloride 108 Carbon Dioxide 25 Anion Gap 11 L BUN 21 H Creatinine 0.82 Estim Creat Clear Calc 41.9 Estimated GFR > 60 Random Glucose 100 Calcium 9.0 Magnesium 1.8 Total Bilirubin 0.1 AST 71 H ALT 21 Alkaline Phosphatase 74 Total Protein 6.9 Albumin 4.1 09/16/25 Unknown Urine clean catch - Clean Catch Midstream Urine Culture - Final Cardiology Testing [place] [id number] Electrocardiograph Report Signed Patient: Renata Fulton MR#: [id number] : 1950 Acct:[id number] Age/Sex: 75 / F ADM Date: 09/16/25 Loc: .ED Attending Dr: Ordering Physician: Dawn Luna Date of Service: 09/16/25 Procedure(s): ECG 12 lead EKG Accession Number(s): [id number] cc: Dawn Luna~ Reason for Exam: od Test Reason : OD Blood Pressure : */* mmHG Vent. Rate : 69 BPM Atrial Rate : 69 BPM P-R Int : 148 ms QRS Dur : 70 ms QT Int : 394 ms P-R-T Axes : 37 -24 21 degrees QTcB Int : 422 ms Normal sinus rhythm Minimal voltage criteria for LVH, may be normal variant ( R in aVL ) Cannot rule out Anterior infarct (cited on or before 04-Jun-2024) Abnormal ECG When compared with ECG of 16-Sep-2025 08:48, No significant change was found Referred By: Danw Luna Electronically Signed By: SHANTELLE GU MD DS: Summary Hospital Course Hospital Course: Psychiatry Admission Note (In) Signed Patient: Renata Fulton MR#: [id number] : 1950 Acct:[id number] Age/Sex: 75 / F Loc: HO.PGERI 177-[address]: Thierry Moraes MD cc: Thierry Moraes MD~ HPI Date of Service: 09/19/25 Chief Complaint: SI Depression Sources of Information: patient interviewed, chart reviewed and crisis/core team assessment reviewed Additional Sources of Information: 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 The patient has been on Paxil 40 mg lorazepam 0.5 mg p.o. t.i.d. PRN BuSpar 10 mg p.o. b.i.d. and had recently been started on a small dose of Wellbutrin a half tablet of a 75 mg. Patient has been on Paxil for many years and we have been working on augmenting strategies has had failures on doxepin mirtazapine olanzapine. Patient has felt increasingly overwhelmed with multiple medical and other problems. She has had ongoing diarrhea and nausea vomiting with colitis as felt she has not been manage very well by her patient providers pills she has been canceled a number of times. She has had ongoing difficulty with balance and recently had developed a drop foot impairing her mobility in also had needed to renew her license was unable to do that at 1 point and has felt trapped in the house although she does have a car. She has had multiple hospitalizations over the past year medical reasons has had past stroke noted on head CT scan and also feels she is intermittently having TIAs. Patient has felt intermittently suicidal reportedly over the past month and then when her heating bill for the house broke down found out it had asbestos it felt like the last straw and she took 4.5 mg of lorazepam she states not in an attempt to kill herself but she could not take the emotional pain and ongoing continuous anxiety. We have in the past talked at times about assisted living. She is not currently connected with a therapist. 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 The patient did become scared when she had a transient thought about whether she should burn the house down she denied that this was an impulse a voice or plan but then became fearful what if she did something and called her [id number] and then was brought to hospital. She denies intrusive voices or commands that she has been experiencing Past Psychiatric History: Patient has chronic history of panic somatic preoccupations mild depressive episodes. Patient has generally been doing okay she lives with her niece in the same building to family house. Some chronic anxiety related to chronic allergy symptoms have been encouraged visit to boring machine set up operator or ENT which she has not pursued Librium has been cut in half over time history of panic attacks and anxiety generally stable with Paxil buspirone denies over medication does have some degree of chronic balance problems week and discussed possibility of physical therapy for strengthening and balance. She is also seen by rheumatology Medical Evaluation Reviewed: Yes Noted for question of UTI EKG and labs unremarkable [facility] Medical History (Updated 09/19/25 @ 17:45 by Thierry Moraes MD) IBS (irritable bowel syndrome) Hypomagnesemia Mixed hyperlipidemia Sciatica Vitamin D deficiency TIA (transient ischemic attack) Major depression with psychotic features Osteoporosis with pathological fracture Dysuria 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 Sinusitis Asthma Generalized anxiety disorder Mood disorder, drug-induced Panic disorder [episodic paroxysmal anxiety] Dysthymia Hypertension Diverticulitis CVA (cerebral vascular accident) Vertigo Irritable bowel syndrome with both constipation and diarrhea GERD (gastroesophageal reflux disease) Depression with anxiety Lupus Surgical History History of open reduction and internal fixation (ORIF) procedure S/P repair of paraesophageal hernia Hx of colonoscopy History of cholecystectomy Social History: Patient 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 The mother is she has a brother with PTSD family history of depression She never no children Substance History: none Trauma History: NA medical trauma over the past year Diagnostics Vital Signs (24Hr): Vital Signs - 24 hr 09/18/25 14:36 09/18/25 16:27 09/18/25 20:00 Temperature 97.2 F 97.5 F 98.2 F Pulse Rate 61 85 80 Respiratory Rate 14 18 16 Blood Pressure 94/54 L 126/69 123/84 Pulse Oximetry 97 99 96 Oxygen Delivery Method Room Air Room Air Room Air 09/18/25 20:42 09/18/25 20:43 09/19/25 08:00 Temperature 97.9 F Pulse Rate 80 77 Respiratory Rate 18 Blood Pressure 123/84 123/84 134/64 Pulse Oximetry 97 Oxygen Delivery Method Room Air BMI result Body Mass Index 20.7 Labs 09/19/25 07:17 document embedded image 09/19/25 07:17 document embedded image Labs: Laboratory Results - last 48 hr 09/19/25 07:17 WBC 5.0 RBC 3.95 L Hgb 12.3 Hct 36.1 L MCV 91.4 MCH 31.1 MCHC 34.1 RDW 12.8 Plt Count 245 MPV 9.0 L Immature Gran % (Auto) 0.2 Neut % (Auto) 64.8 Lymph % (Auto) 23.6 [place] % (Auto) 9.4 Eos % (Auto) 1.4 Baso % (Auto) 0.6 Lymph # (Auto) 1.2 [place] # (Auto) 0.5 Eos # (Auto) 0.1 Baso # (Auto) 0.0 Abs Immat Gran (auto) 0.01 Absolute Neuts (auto) 3.2 Absolute Nucleated RBC 0.000 Nucleated RBC % (auto) 0.0 Sodium 140 Potassium 3.3 D Chloride 108 Carbon Dioxide 22 Anion Gap 13 BUN 19 H Creatinine 0.78 Estim Creat Clear Calc 44.0 Estimated GFR > 60 Random Glucose 97 Estimat Average Glucose 108 Hemoglobin A1c % 5.4 Calcium 9.1 Total Bilirubin 0.2 AST 22 ALT 6 Alkaline Phosphatase 63 Total Protein 6.4 L Albumin 3.9 Triglycerides 154 H Cholesterol 179 LDL Cholesterol, Calc 88 HDL Cholesterol 61 Meds/Allergies Meds Home Medications Medication Instructions Recorded Confirmed Type omeprazole 40 mg capsule,delayed 40 mg PO DAILY@0630 05/15/25 09/16/25 History release potassium chloride 20 mEq 20 meq PO DAILY 05/15/25 09/16/25 History tablet,extended release(part/cryst) carvedilol 25 mg tablet 25 mg PO BID 05/17/25 09/16/25 History buspirone 15 mg tablet 10 mg PO BID 07/11/25 09/16/25 History bupropion HCl 100 mg tablet,12 hr 100 mg PO QAM 09/16/25 09/16/25 History sustained-release bupropion HCl 75 mg tablet 75 mg PO QAM 09/16/25 09/16/25 History lorazepam 0.5 mg tablet 0.5 mg PO TID PRN Anxiety 09/17/25 09/17/25 History Allergies Allergies Allergy/AdvReac Type Severity Reaction Status Date / Time Codeine Sulfate Allergy Severe Anaphylaxis Verified 09/16/25 08:14 diphenhydramine (From Allergy Intermediate sweats, Verified 09/16/25 08:14 Benadryl) palpitation egg Allergy Intermediate Heartburn Verified 09/16/25 08:14 Sulfa (Sulfonamide Allergy Intermediate RASH Verified 09/16/25 08:14 Antibiotics) (SULFA (SULFONAMIDE ANTIBIOTICS)) cefuroxime AdvReac Intermediate delerium Verified 09/16/25 08:14 ,paranoia Mental Status Exam Mental Status Exam Patient Appearance: Appropriate Patient Orientation: Person, Place, Time and Situation Level of Consciousness: Awake Patient Behavior: Appropriate Mood Description: Depressed and Anxious Affect Description: Constricted and Apprehensive Ability to Follow Directions: Good Speech Pattern: Clear Memory Description: Intact Hallucinations: None Delusions: Not Present Thought Process: Rumination and Linear Thought Content: positive for Preoccupation and negative for Suicidal Ideation Depressive Symptoms: Increased Anxiety, Difficulty Sleeping, Loss of Int. in Activity, Hopelessness, Isolating-Friends/Family, Thoughts of /Suicide and Loss of Energy Judgement: Fair (Patient denies plan or intent states at times she was suffering so much that she would mind if she was not here) Assessment & Plan Assessment & Plan (1) Panic disorder [episodic paroxysmal anxiety]: Status: Acute Code(s): F41.0 - Panic disorder [episodic paroxysmal anxiety] (2) Generalized anxiety disorder: Status: Acute Code(s): F41.1 - Generalized anxiety disorder (3) Depression, major, severe recurrence: Status: Acute Code(s): F33.2 - Major depressive disorder, recurrent severe without psychotic features Plan Patient presents with an ongoing severe agitated depression feeling nothing is going right in her life that she is suffering mentally and physically and feeling off well what to do with her house and now having to do major repairs on her heating system and feeling overwhelmed that she had the where with all to move into assisted living in all that would entail. She denies commands to harm herself she had an intrusive thought about burning the house which seem more like a fear than an impulse and there is a history of OCD handwashing and other intrusive fears that are times irrational. Patient denied that she was trying to take her life but clearly is suffering with multiple concerns financial and medical Plan admit on a conditional voluntary 5 minute checks PT consult Patient appears to suffer benign positional vertigo will benefit from assessment and treatment either inpatient if possible or outpatient Diarrhea nausea history of colitis relatively recently diagnosed not currently in treatment as for GI consult History of in infarcts question of TIAs has not seen neurology did have carotid Doppler studies in 2023 which were negative for significant pathology Start Seroquel for severe anxiety treatment resistant depression Consider low-dose Wellbutrin for augmentation versus TCA or Effexor Would also benefit from visiting nurse for safety Would benefit from referral for ongoing counseling initial referral was attempted a few months ago Would benefit from outpatient counseling consider PHP step-down Patient educated on: diagnosis, medication risk/benefits and medical condition Informed Consent: understands Reason for continued inpatient stay Substantial Risk for: harm to self, inability to function, rapid decompensation and med/psych decompensation Statement Statement: I have reviewed the history and physical and performed a pertinent examination on my patient. No changes have occurred unless specified. If the History and Physical was not performed prior to admission, the Hospitalist's service will be consulted for completing the admission physical. Reviewed 08 31 this morning Time Spent With Patient Time: Total time managing care of this patient today _60___ minutes. 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 Patient has been on Paxil for many years which was discontinued during hospital stay. She was noted to have an intrusive OCD intrusive thought in which she imaged herself somehow blowing up the house because her gas furnace and felt fearful regarding this and that what led her to take what she states was absolutely not an overdose but a number of pills in order to state herself. She was given extensive education regarding OCD and what obsessional intrusive thought is. Patient was started on Seroquel for depression anxiety OCD symptoms continued on lorazepam 0.5 mg p.o. b.i.d.. Escitalopram started 5 mg daily patient has a history of a B12 deficiency and she was given an injection of cyanocobalamin prior to discharge. Another issue prior to admission had been patient's furnace needing to be replaced and this had been quite overwhelming to her and this was replaced while she was inpatient during the hospital stay Time Spent with Patient Time attestation: Total time managing care of this patient today ____ minutes. Discharge Plan Discharge Anticipated Discharge Date/Time: 10/03/25 12:15 Patient Disposition: Home Health Service Discharge Diagnosis: major depression with anxiety ocd sx panic disorder generalized anxiety b12 deficiency Referrals: [facility] [Other] - 3-5 Days Referral Note: Referral made for [facility]. Monserrat from enrollment will contact you following discharge. [facility] [Other] - 3-5 Days Referral Note: Your elder services will resume following discharge. Your current services are as follows: One hour of homemaking on Mondays, Emergency response button, Home Delivered Meals, and transportation services for medical appointments. Please call 4-5 days in advance for transportation [phone] [facility] is transportation service. [facility] [Other] - 10/04/25 Referral Note: Your [facility] for custodial and PT to resume at time of discharge. [facility] [Other] - 1 Month Referral Note: You have been referred for a therapist and are on the waitlist. Once a therapist is available to see you, the office will contact you. Thierry Moraes MD [Physician, Psychiatry] - 10/12/25 10:30 am Referral Note: Your next appointment with Dr Moraes is 10/12/25 at 10:30am. Arnulfo Villalba MD [Primary Care Provider, Medical] - 1 Week Referral Note: Request for follow up appointment has been made. A RN from the office will contact you directly with appointment once you discharge home. Discharge Medications: New quetiapine 25 mg Tablet 12.5 mg PO Q4H PRN (Reason: anxiety/agitation) 30 Days Qty: 30 1RF loperamide 2 mg Capsule 2 mg PO Q4H PRN (Reason: Diarrhea) 30 Days Qty: 60 0RF meclizine 12.5 mg Tablet 12.5 mg PO Q6H PRN (Reason: Dizziness) 30 Days Qty: 60 0RF quetiapine 100 mg Tablet 100 mg PO BEDTIME 30 Days Qty: 30 2RF buspirone 10 mg Tablet 20 mg PO BID 30 Days Qty: 120 2RF ondansetron 4 mg Tablet,Disintegrating 4 mg translingual Q6H PRN (Reason: Nausea And Vomiting) 30 Days Qty: 15 0RF escitalopram oxalate 5 mg tablet 5 mg PO DAILY 30 Days Qty: 30 2RF mecobalamin (vitamin B12) 1,000 mcg lozenge 1,000 mcg PO DAILY Qty: 60 2RF Rx Instructions: allow to dissolve in mouth OR may chew lightly before swallowing Continued amlodipine 5 mg Tablet 5 mg PO BEDTIME Qty: 90 0RF Protocol: Hold for SBP< HOLD for SBP < : 90 carvedilol 25 mg tablet 25 mg PO BID lorazepam 0.5 mg tablet 0.5 mg PO TID PRN (Reason: Anxiety) hydroxyzine HCl 10 mg tablet 10 mg PO BEDTIME PRN (Reason: insomnia) 90 Days Qty: 90 1RF omeprazole 40 mg capsule,delayed release(DR/EC) 40 mg PO DAILY@0630 potassium chloride 20 mEq tablet,ER particles/crystals 20 meq PO DAILY Discontinued buspirone 15 mg tablet 10 mg PO BID bupropion HCl 100 mg tablet sustained-release 12 hr 100 mg PO QAM bupropion HCl 75 mg tablet 75 mg PO QAM Discharge Orders: Discharge Order (Routine); Ordered 10/03/25 Ordered By: Thierry Moraes Diet: Advance to usual diet Activity on Discharge: Use cane or walker Stand Alone Forms: Patient Portal Discharge page, Community Support Print Language: Lithuanian Care Plan Goals: stable mood better management of anxiety no si Health Concerns: ibs colitis gait disturbance b12 deficiency Plan of Treatment: medication escitalopram is new medication for depression and anxiety take b12 orally counseling for anxiety management if feeling unsafe call 911 go to ER you will be seen in therapy for anxiety management f/u with dr moraes and outpt therapist Assessment: some anxiety mood improved walking with walker no si Discharge Date/Time: 12/02/25 12:18
== END 2025-10-03 12:18 | disposition home health service (06) | DRG 885 ==
LOC: HO.ED 11:21 → HO.PGERI 09-18 14:34
PROVIDERS: Nurse Practitioner Family; Physician Assistant; Admitting Provider Psychiatry & Neurology Psychiatry; Emergency Provider Emergency Medicine; PCP Internal Medicine; Visit Provider Psychiatry & Neurology Psychiatry
DX: F33.2 Major depressive disorder, recurrent severe without psychotic features (principal); R45.851 Suicidal ideations; K58.0 Irritable bowel syndrome with diarrhea; F41.0 Panic disorder [episodic paroxysmal anxiety]; F41.1 Generalized anxiety disorder; Z20.822 Contact with and (suspected) exposure to COVID-19; Z79.899 Other long term (current) drug therapy
CPT/HCPCS: 36415; 80053; 80061; 80143; 80179; 80307; 81001; 81003; 82607; 82746; 83036; 83735; 84443; 85025; 87086; 87502; 87635; 90656; 93005; 97162; 99285; J3420; S9485

== ENCOUNTER → 2025-09-16 08:33 | Outpatient (BNV) | payer MEDICARE, SELFPAY | PROVIDERS: Emergency Provider Emergency Medicine; PCP Internal Medicine; Visit Provider Internal Medicine Cardiovascular Disease | DX: R94.31 Abnormal electrocardiogram [ECG] [EKG] (principal); T50.901A Poisoning by unspecified drugs, medicaments and biological substances, accidental (unintentional), initial encounter | CPT/HCPCS: 93010 ==

== ENCOUNTER → 2025-09-18 12:18 | Outpatient (BNV) | payer OTHER, SELFPAY | PROVIDERS: Admitting Provider Psychiatry & Neurology Psychiatry; Emergency Provider Emergency Medicine; PCP Internal Medicine; Visit Provider Psychiatry & Neurology Psychiatry | DX: F33.2 Major depressive disorder, recurrent severe without psychotic features (principal); F41.0 Panic disorder [episodic paroxysmal anxiety]; F41.1 Generalized anxiety disorder | CPT/HCPCS: 90792; 99232 ==

== ENCOUNTER → 2025-09-18 12:18 | Outpatient (BNV) | payer MEDICARE, SELFPAY | PROVIDERS: Admitting Provider Psychiatry & Neurology Psychiatry; Emergency Provider Emergency Medicine; PCP Internal Medicine; Visit Provider Internal Medicine | DX: K59.00 Constipation, unspecified (principal); K52.832 Lymphocytic colitis | CPT/HCPCS: 99222 ==

== ENCOUNTER → 2025-09-18 12:18 | Outpatient (BNV) | payer OTHER, SELFPAY | PROVIDERS: Admitting Provider Psychiatry & Neurology Psychiatry; Emergency Provider Emergency Medicine; PCP Internal Medicine; Visit Provider Social Worker | DX: F33.2 Major depressive disorder, recurrent severe without psychotic features (principal); F41.0 Panic disorder [episodic paroxysmal anxiety]; F41.1 Generalized anxiety disorder | CPT/HCPCS: 99232 ==

== ENCOUNTER → 2025-09-18 12:18 | Outpatient (BNV) | payer MEDICARE, SELFPAY | PROVIDERS: Admitting Provider Psychiatry & Neurology Psychiatry; Emergency Provider Emergency Medicine; PCP Internal Medicine; Visit Provider Nurse Practitioner Family | DX: K58.9 Irritable bowel syndrome, unspecified (principal) | CPT/HCPCS: 99221 ==

== ENCOUNTER 2025-10-12 10:30 | Outpatient (AMB) | payer MEDICARE, SELFPAY ==
--- NOTE | 2025-10-12 11:00 | A.OFFPSYCH_ITS ---
Intake Intake Visit Reasons: depression Allergies Codeine Sulfate Allergy (Severe, Verified 09/16/25 08:14) Anaphylaxis diphenhydramine (From Benadryl) Allergy (Intermediate, Verified 09/16/25 08:14) sweats, palpitation egg Allergy (Intermediate, Verified 09/16/25 08:14) Heartburn Sulfa (Sulfonamide Antibiotics) (SULFA (SULFONAMIDE ANTIBIOTICS)) Allergy (Intermediate, Verified 09/16/25 08:14) RASH cefuroxime Adverse Reaction (Intermediate, Verified 09/16/25 08:14) [facility] Medication List - Last Reconciled 10/12/25 by Thierry Moraes MD amlodipine 5 mg See Protocol PO BEDTIME buspirone 20 mg (2 x 10 mg) PO BID 30 days carvedilol 25 mg PO BID hydroxyzine HCl 10 mg PO BEDTIME PRN 90 days loperamide 2 mg PO Q4H PRN 30 days lorazepam 0.5 mg PO TID PRN meclizine 12.5 mg PO Q6H PRN 30 days mecobalamin (vitamin B12) 1,000 mcg PO DAILY omeprazole 40 mg PO DAILY@0630 ondansetron 4 mg translingual Q6H PRN 30 days potassium chloride ER 20 mEq PO DAILY quetiapine 100 mg PO BEDTIME 30 days quetiapine 12.5 mg (1/2 x 25 mg) PO Q4H PRN 30 days HPI- Psychiatric Chief Complaint: depression HPI Narrative: The patient presented for a follow-up appointment to manage and review current psychiatric medications and overall mental health status. HPI The patient reported managing their own medications, although a visiting nurse occasionally checked their blood pressure. The patient expressed frustration abo ut a previous office visit where medications were altered without adequate explanation. The patient was on amlodipine for blood pressure, buspirone, which was increased to two pills twice a day, and carvidol for the heart, which remained unchanged. The patient was newly started on escitalopram and noted no side effects except initial sedation, which had resolved. The patient reported experiencing anxiety and nervous stomach frequently but had not had any panic attacks. The patient expressed concern about increasing the escitalopram dosage to 10mg, fearing increased nervousness, but agreed to try it. The patient occasionally used hydroxyzine for sleep and quetiapine at bedtime and as needed during the day for anxiety. MENTAL STATUS PAIN The patient did not report any pain during this encounter. BACKGROUND The patient did not report any new allergies or medications other than those discussed. Physical symptoms included frequent anxiety and a nervous stomach, but no panic attacks. Past Psychiatric History: Patient has chronic history of panic somatic preoccupations mild depressive episodes. Patient has generally been doing okay she lives with her niece in the same building to family house. Some chronic anxiety related to chronic allergy symptoms have been encouraged visit to peer educator or ENT which she has not pursued Librium has been cut in half over time history of panic attacks and anxiety generally stable with Paxil buspirone denies over medication does have some degree of chronic balance problems week and discussed possibility of physical therapy for strengthening and balance. She is also seen by rheumatology Mental Status Exam Mental Status Exam Narrative: The patient?s mood was described as ?better? and more like themselves.Pt feels better future oriented no active si Feels okay to be back at home no obsessional thoughts that she is fearful that she was going to burn down the house and irrational obsessional fear. No panic feels more like herself Assessment and Plan Assessment & Plan (1) Panic disorder [episodic paroxysmal anxiety]: Status: Acute Code(s): F41.0 - Panic disorder [episodic paroxysmal anxiety] (2) Generalized anxiety disorder: Status: Acute Code(s): F41.1 - Generalized anxiety disorder (3) Dysthymia: Status: Acute Code(s): F34.1 - Dysthymic disorder Plan Patient recently hospitalized taken off of Paxil now on escitalopram increased to 10 mg does find hydroxyzine helpful Education regarding a obsessional and intrusive OCD type irrational thoughts Medications: New escitalopram oxalate 10 mg PO DAILY 90 tabs 1RF Refilled hydroxyzine HCl 10 mg PO BEDTIME PRN 90 tabs 1RF insomnia 90 days Orders: Orders ECG 12 lead EKG 10/12/25 I10 - Essential (primary) hypertension, E78.5 - Hyperlipidemia, unspecified Counseling and coordination of Care Pt. Self Management counseling: Breathing and Cognitive restructuring Medication management counseling: Effectiveness, Side effects and Dosing range Diagnosis and Prognosis Counseling: Impact of diagnosis on life functions, Problematic behaviors secondary to diagnosis and Adequacy of current interventions Details: I spent [38] minutes reviewing the record, seeing the patient and documenting in the medical record. Counseling provided to the patient/caregiver as outlined below. Addressed patient/caregiver concerns regarding current medication regime including effective adherence. Addressed patient/caregiver concerns regarding diagnosis and prognosis including accuracy of diagnosis, prognosis over time, impact of diagnosis. Addressed patient/caregiver concerns regarding impact of recent stressors. 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 Sinusitis Asthma Generalized anxiety disorder Mood disorder, drug-induced Panic disorder [episodic paroxysmal anxiety] Dysthymia Hypertension Diverticulitis CVA (cerebral vascular accident) Vertigo Irritable bowel syndrome with both constipation and diarrhea GERD (gastroesophageal reflux disease) Depression with anxiety Lupus Surgical History (Updated 10/11/25 @ 00:01 by Catrer Campos) History of open reduction and internal fixation (ORIF) procedure S/P repair of paraesophageal hernia Hx of colonoscopy History of cholecystectomy Family History Father CAD (coronary artery disease) Maternal Grandmother HTN (hypertension), benign Father No problems noted. Mother Hypertension Asthma COPD (chronic obstructive pulmonary disease) Breast cancer, Onset Age: 89 Social History Household Members: None Household Members Other:: [facility] Housing: House Are you a primary care professional to a significant other at home: No Do you presently have visiting nurse or other home services: Yes (meals, homemaker and home health aide) Alcohol intake: former Patient Tobacco Use Status: Former Tobacco user Tobacco use type: Cigarette Years Smoked: quit greater than 10 years ago e-Cigarette/Vaping Use: Former Use Second Hand Smoke Exposure: No Advance Directives Date on File: 04/07/23 service: No Current occupational status: retired 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 The mother is she has a brother with PTSD family history of depression She never no children Substance History: none Trauma History: NA medical trauma over the past year Coding Level of Care Code Est Pt Level 3 (74143) Therapy 30m w/E&M (15542) Diagnoses Panic disorder [episodic paroxysmal anxiety] F41.0 Generalized anxiety disorder F41.1 Dysthymia F34.1
== END 2025-10-12 11:10 | disposition home or self-care (01) ==
LOC: HO.HOP 10:30
PROVIDERS: PCP Internal Medicine; Visit Provider Psychiatry & Neurology Psychiatry
DX: F41.0 Panic disorder [episodic paroxysmal anxiety] (principal); F41.1 Generalized anxiety disorder; F34.1 Dysthymic disorder
CPT/HCPCS: 90833; 99213

== ENCOUNTER → 2025-10-12 10:30 | Outpatient (REF) | payer MEDICARE, SELFPAY ==
--- NOTE | 2025-10-12 11:10 | ECG_ITS ---
Test Reason : HTN Blood Pressure : */* mmHG Vent. Rate : 65 BPM Atrial Rate : 65 BPM P-R Int : 144 ms QRS Dur : 70 ms QT Int : 388 ms P-R-T Axes : 49 -16 44 degrees QTcB Int : 403 ms Normal sinus rhythm Normal ECG When compared with ECG of 16-Sep-2025 10:23, T wave inversion no longer evident in Anterior leads Referred By: Thierry Moraes Electronically Signed By: SHANTELLE GU MD
== END ==
LOC: HO.CARD 10:30
PROVIDERS: PCP Internal Medicine; Visit Provider Psychiatry & Neurology Psychiatry
DX: I10 Essential (primary) hypertension (principal); E78.5 Hyperlipidemia, unspecified
CPT/HCPCS: 93005

== ENCOUNTER → 2025-10-12 11:10 | Outpatient (BNV) | payer MEDICARE, SELFPAY | PROVIDERS: PCP Internal Medicine; Visit Provider Internal Medicine Cardiovascular Disease | DX: I10 Essential (primary) hypertension (principal) | CPT/HCPCS: 93010 ==